=== PATIENT | female | born 1950 | race Caucasian/White ===

== ENCOUNTER → 2017-10-10 10:54 | Outpatient (CLI) | payer MEDICARE, OTHER, SELFPAY ==
--- NOTE | 2017-10-10 11:00 | HPBD_ITS ---
STUDY: DUAL ENERGY X-RAY ABSORPTIOMETRY / DXA REASON FOR EXAM: Female, 67 years old. The patient is postmenopausal. Loss of height. TECHNIQUE: Bone Mineral Density (BMD) measurements of lumbar spine and left forearm were obtained. The patient is status post bilateral hip replacement. COMPARISON: Comparison is made with prior study dated July 31, 2013. FINDINGS: Lumbar Spine (L1-L4): g/cm2 (1.199) / T-score (0.3) / Z-score (1.9) Findings are suggestive of normal bone density with a low fracture risk. Left Forearm: g/cm2 (0.810) / T-score (-0.8) / Z-score (0.9) The T-Scores on the most recent prior examination were: Lumbar Spine (L1-L4): There has been worsening of bone density since the previous examination. HPBD/Dexa Bone Density Study (HP) IMPRESSION: The patient is considered normal as outlined below according to World Marcel Organization (WHO) criteria with a low fracture risk. There has been worsening of bone density since the previous examination. Reference Information: The T-score is the number of standard deviations above or below the standard which is normal for young adults at their peak bone mineral density. The World Health Organization (WHO) interprets the T-scores as follows: Above -1 Normal bone density Between -1 and -2.5 Osteopenia Equal to / or below -2.5 Osteoporosis As a practical clinical guideline, osteopenia may be graded as follows: Mild -1 through -1.5 Moderate -1.6 through -2.0 Severe -2.1 through -2.4 The Z-score is the number of standard deviations above or below age-matched controls. A Z-score of less than -1.5 would be considered abnormal. References: 1. NIH Osteoporosis and Related Bone Diseases http://www.osteo.org 2. International Society for Clinical Densitometry http://www.iscd.org 3. National Osteoporosis Foundation http://www.nof.org Electronically Signed: Ciro Reece MD at 12:25 EST Tel [phone], Service support ,
== END ==
PROVIDERS: Family Provider Family Medicine; PCP Family Medicine; Visit Provider Family Medicine
DX: M81.0 Age-related osteoporosis without current pathological fracture (principal)
CPT/HCPCS: 77080

== ENCOUNTER → 2017-10-11 12:39 | Outpatient (CLI) | payer MEDICARE, OTHER, SELFPAY ==
[2017-10-11 14:38] LABS: Vitamin D,25 Hydroxy 27.7 ng/mL (19.95-100.01)
== END ==
PROVIDERS: Family Provider Family Medicine; PCP Family Medicine; Visit Provider Family Medicine
DX: E55.9 Vitamin D deficiency, unspecified (principal)
CPT/HCPCS: 36415; 82306

== ENCOUNTER → 2017-10-13 09:59 | Outpatient (CLI) | payer MEDICARE, OTHER, SELFPAY ==
--- NOTE | 2017-10-13 10:09 | HPBI_ITS ---
MAMMOGRAPHY - BILATERAL SCREENING REASON FOR EXAM: Female, 67 years old. Routine annual screening examination. PERTINENT HISTORY: Sister with breast cancer. TECHNIQUE: Digital bilateral breast elvira (3D mammographic acquisition) in the CC and MLO projections. 2-D mediolateral oblique (MLO) and craniocaudad (CC) views of both breasts were obtained. CAD: Full Field Digital Mammography with Computer Added Detection was performed. COMPARISON: Comparison is made with prior study dated October 10, 2016 and October 07, 2015. FINDINGS: Breast Composition: There are scattered areas of fibroglandular density. There are no dominant masses or suspicious calcifications. Stable 6.6 mm x 5.7 mm well-defined nodule in the upper outer aspect of the left breast. This most likely represent a small intramammary lymph node. No other significant abnormalities are identified. There has been no significant change since the prior study. HPBI/SCREENING MAMM (CAD), BILAT IMPRESSION: Stable bilateral screening mammogram. Yearly follow-up mammogram recommended. (A) ASSESSMENT CATEGORY: BIRADS Category 2: Benign. A letter regarding these results will be sent to the patient by the facility within 30 days. Approximately 10% of breast cancers are not detected by mammography. A normal mammogram should not delay biopsy of a clinically suspicious abnormality. [id number] Electronically Signed: Ciro Reece MD at 13:08 EST Tel [phone], Service support ,
== END ==
PROVIDERS: Family Provider Family Medicine; PCP Family Medicine; Visit Provider Obstetrics & Gynecology
DX: Z12.31 Encounter for screening mammogram for malignant neoplasm of breast (principal)
CPT/HCPCS: 77063; 77067

== ENCOUNTER → 2018-01-03 16:58 | Outpatient (CLI) | payer MEDICARE, OTHER, SELFPAY ==
--- NOTE | 2018-01-03 17:27 | MRI_ITS ---
STUDY: MRI LUMBAR SPINE WITHOUT CONTRAST REASON FOR EXAM: Female, 67 years old. Back pain TECHNIQUE: Standardized fat and water weighted pulse sequences were obtained in the sagittal and axial planes. COMPARISON: None FINDINGS: There is a mild first-degree spondylolisthesis of L3 over L4. No acute fractures. An old compression fracture involving the superior endplate of L4. Narrowing of the disc spaces in the lower thoracic spine and also at L5-S1 T12-L1: Normal endplates. Normal disc height, hydration and morphology. Normal bilateral facet joints. Normal central canal and bilateral lateral recesses. Normal bilateral intervertebral neural foramina. L1-2: Normal endplates. Normal disc height, hydration and morphology. Normal bilateral facet joints. Normal central canal and bilateral lateral recesses. Normal bilateral intervertebral neural foramina. L2-3: Normal endplates. Normal disc height, hydration and morphology. Facet arthrosis bilaterally but especially on the right side. Normal central canal and bilateral lateral recesses. Normal bilateral intervertebral neural foramina. L3-4: Mild spondylolisthesis of L3 over L4 with degenerative changes in the facet joints. Mild central canal stenosis. No focal disc protrusion or extrusion. L4-5: Normal endplates. Normal disc height, hydration and morphology. Facet arthrosis bilaterally.. Normal central canal and bilateral lateral recesses. Normal bilateral intervertebral neural foramina. L5-S1: Disc space narrowing with mild concentric disc bulging. No focal disc protrusion or extrusion and no central canal stenosis.. The aorta and kidneys are normal MRI/Spine Lumbar (Routine) IMPRESSION: A mild first-degree spondylolisthesis of L3 over L4. Mild and old compression fracture involving the superior endplate of L3 Intervertebral osteochondrosis involving T10-T11, T11-T12 and L5-S1. Facet arthrosis from L2-3 through L4-5. No central canal stenosis Electronically Signed: Daniel Chua, at 0:15 EDT Tel , Service support ,
== END ==
PROVIDERS: Family Provider Family Medicine; PCP Family Medicine; Visit Provider Family Medicine
DX: M51.36 Other intervertebral disc degeneration, lumbar region (principal); M43.06 Spondylolysis, lumbar region
CPT/HCPCS: 72148

== ENCOUNTER → 2018-03-12 10:12 | Outpatient (CLI) | payer MEDICARE, OTHER, SELFPAY ==
[2018-03-12 11:37] LABS: Anion Gap 6 (5-15); BUN 18 mg/dL (7-18); BUN/Creat Ratio 20.5 RATIO (10-20); Calcium,Total 8.9 mg/dL (8.5-10.1); Chloride 106 mmol/L (98-107); Creatinine, Serum 0.88 mg/dL (0.55-1.02); EST Glomerular Filtration Rate 68 mL/min (>60); Est Glom Filt Rate - Afr Amer 82 mL/min (>60); Glucose 80 mg/dL (74-106); Sodium Level 142 mmol/L (136-145); Thyroid Stim Hormone (TSH) 3.37 uIU/mL (0.358-3.74)
== END ==
PROVIDERS: Family Provider Family Medicine; PCP Family Medicine
DX: E03.9 Hypothyroidism, unspecified (principal)
CPT/HCPCS: 36415; 80048; 84439; 84443

== ENCOUNTER → 2018-04-03 08:59 | Outpatient (CLI) | payer MEDICARE, OTHER, SELFPAY ==
--- NOTE | 2018-04-03 09:00 | RAD_ITS ---
STUDY: X-RAY - LUMBAR SPINE REASON FOR EXAM: Female, 67 years old. Low back pain TECHNIQUE: 4 view(s) of the lumbar spine were obtained. With flexion and extension COMPARISON: None FINDINGS: Normal lumbar lordosis. There is no substantial scoliosis. Grade 1 anterolisthesis of L4 on L5. There is multilevel endplate spondylosis of the lumbar vertebrae. There is multi-level degenerative disc disease with multi-level disc space narrowing. There is no demonstrated fracture. There is atherosclerotic calcification of the abdominal aorta without a demonstrated aneurysm. RAD/L/S Spine Min 4 Views IMPRESSION: Degenerative changes of the spine, as detailed above. Electronically Signed: Derrick Lewis DO at 11:28 EDT Tel , Service support ,
== END ==
PROVIDERS: Family Provider Family Medicine; PCP Family Medicine; Visit Provider Orthopaedic Surgery
DX: M54.5 Low back pain (principal)
CPT/HCPCS: 72110

== ENCOUNTER 2018-05-11 01:01 | Observation (INO) | payer MEDICARE, OTHER, SELFPAY ==
[2018-05-11] VITALS (9 sets, daily range): BP systolic 131–157; BP diastolic 63–91; PULSE 57–77; RESP 16–18; TEMP 36.4–36.6; O2SAT 95–99
[2018-05-11] MEDS: Aspirin 81 MG TAB.CHEW 324 MG PO (01:25)
[2018-05-11 01:26] LABS: Absolute Neutrophil Count 5.1 X10^3/uL (2.0-7.7); Basophil# 0.02 X10^3/uL; Basophil% 0.2 % (0-1); Eosinophils% 2.2 % (0-5); Hematocrit 39.1 % (37-47); Hemoglobin 12.2 g/dl (12.0-15.0); Lymphocyte % 32.5 % (19-41); Mean Corp Hgb Conc 31.2 g/gl (32-36); Mean Corpuscular Volume 96.1 fL (81-99); Mean Platelet Vol. 9.7 fl (6.2-12.0); Monocyte# 0.73 X10^3/uL; Monocyte% 8.2 % (0-10); Neutrophil # 5.06 X10^3/uL (2.7-7.7); Neutrophil % 56.8 % (47-70); POSITIVE COUNT NO; POSITIVE DIFFERENTIAL NO; POSITIVE MORPHOLOGY NO; Platelet Count 293 K/mm3 (150-450); RBC Distribution Width CV 13.5 % (11.6-14.6); RBC Distribution Width SD 46.7 fl (35.1-43.9); Red Blood Count 4.07 M/mm3 (4.2-5.4); White Blood Count 8.9 K/mm3 (4.4-11.0)
[2018-05-11 01:36] LABS: Anion Gap 9 (5-15); BUN 19 mg/dL (7-18); BUN/Creat Ratio 20.9 RATIO (10-20); Calcium,Total 9.2 mg/dL (8.5-10.1); Chloride 105 mmol/L (98-107); Creatinine, Serum 0.91 mg/dL (0.55-1.02); EST Glomerular Filtration Rate 65 mL/min (>60); Est Glom Filt Rate - Afr Amer 79 mL/min (>60); Estimated Creatinine Clearance 55.39 ml/min; Glucose 101 mg/dL (74-106); Potassium 3.7 mmol/L (3.5-5.1); Sodium Level 143 mmol/L (136-145)
[2018-05-11] MEDS: Nitroglycerin Oint 1 INCH PACKET TRANSDERM. (01:49)
--- NOTE | 2018-05-11 03:07 | PCM.HP.STD ---
Problem List (1) Chest pain Status: Acute Qualifiers: Chest pain type: unspecified Qualified Code(s): R07.9 - Chest pain, unspecified (2) Hyperlipidemia Status: Chronic Qualifiers: Hyperlipidemia type: pure hypercholesterolemia Qualified Code(s): E78.00 - Pure hypercholesterolemia, unspecified; E78.0 - Pure hypercholesterolemia (3) Hypothyroidism (acquired) Status: Chronic (4) Obstructive sleep apnea Status: Chronic (5) Polymyalgia rheumatica Status: Chronic (6) History of GI bleed Status: Chronic (7) CAD S/P percutaneous coronary angioplasty Status: Chronic Comment: 2007 History of Present Illness Date of Admission: 05/11/18 Chief Complaint: Chest pain The patient is a 67 y/o F w/ PMHx: Hx GI Bleed, HLD, Hypothyroidism, RUBEN, CAD s/p PCI 12/2007, PAF s/p ablation , Anxiety and Depression, Obesity who presents to the [facility] ED on 05/11/18 with history of onset malaise, fatigue, mild lightheadedness and palpitations following her pool therapy on Monday with following ongoing general fatigue and malaise sensation with onset the evening prior to ED presentation left sided chest pressure, discomfort, rated 5/10 with radiation toward the back and sensation of stabbing sharp discomfort concurrently in the back on the left side with no associated dyspnea, diaphoresis, nausea or emesis prompting ED presentation. Following interventions in the ED patient rated pain 0/10. In the ED work-up included T 97.5, heart rate 67, BP 157/69--> 31/63, respiratory rate 16, 97% room air, CBC unremarkable, BMP unremarkable, troponin less than 0.015, chest x-ray with no acute findings, EKG with sinus rhythm with no acute evidence of ischemia. In the ED patient administered aspirin and Nitro-Bid 1 inch ?1. Past Medical History Past Medical History (Chronic Problems): Chronic Problems (Last Reviewed 03/14/18 @ 13:19 by Ann Miramontes) Hyperlipidemia (Chronic) Supraventricular tachycardia (Chronic) Postsurgical percutaneous transluminal coronary angioplasty (PTCA) status (Chronic) 12/14/07 PTCA/stent (OMAR) to LAD [facility] use of drug (Chronic) Antihyperlipidemic Hypothyroidism (acquired) (Chronic) Obstructive sleep apnea (Chronic) Polymyalgia rheumatica (Chronic) Nonhealing ulcer of left lower leg with fat layer exposed (Chronic) L97.922 nonhealing hematoma ulcer left lateral leg Open wound of left lower leg (Chronic) S81.802D open surgical hematoma wound left lateral leg Contusion of left lower leg (Chronic) S80.12xS 8 cm traumatic contusion left lateral leg History of GI bleed (Chronic) CAD S/P percutaneous coronary angioplasty (Chronic) 2008 History of coronary artery stent placement (Chronic) x 1 2008 Medical History: Medical History (Last Reviewed 03/14/18 @ 13:19 by Ann Miramontes) GI bleed K92.2 x2 History of blood transfusion Z92.89 Myofascitis M60.9 Hyperlipidemia E78.5 Hypothyroidism E03.9 Sleep apnea G47.30 Thoracic spondylosis M47.814 Status post bilateral knee replacements Z96.653 2005 2006 Allergies duloxetine [From Cymbalta] Allergy (Mild, Verified 04/03/18 11:40) chest pain adhesive tape Allergy (Verified 04/03/18 11:40) Rash pravastatin [From Pravachol] Allergy (Verified 04/03/18 11:40) MUSCLE PAIN cyclobenzaprine [From Flexeril] Adverse Reaction (Verified 04/03/18 11:40) EXTREME WEAKNESS NSAIDS (Non-Steroidal Anti-Inflamma Adverse Reaction (Verified 04/03/18 11:40) GI BLEED Home Medications: Ambulatory Orders Medication Instructions Recorded Aspirin [Adult Low Dose Aspirin EC] 81 mg PO QHS 05/31/16 Cetirizine HCl [Zyrtec] 10 mg PO QHS PRN 05/31/16 Fluticasone 0.05% [Flonase Nasal 1 spray NASAL QHS 05/31/16 [place]] Levothyroxine [Synthroid] 150 mcg PO DAILY 05/31/16 Metoprolol(XL)Succ [Toprol Xl 50 mg PO DAILY 05/31/16 (Beta Ashli)] Omeprazole [Prilosec] 40 mg PO DAILY 05/31/16 Venlafaxine HCl [Effexor] 37.5 mg PO QHS 05/31/16 traMADol [Ultram] 50 mg PO Q8H PRN PRN 05/31/16 clopidogrel 75 mg tablet 75 mg PO QDAY #90 tab 01/18/18 prednisone 1 mg tablet 3 mg PO DAILY tab 02/23/18 Calcium Carb/Vitamin D 1 tab PO DAILY@0800 05/11/18 [Caltrate-600 With Vit D Tab] Clopidogrel Bisulfate [Plavix] 75 mg PO DAILY 05/11/18 Surgical History: Surgical History (Last Reviewed 03/14/18 @ 13:19 by Ann Miramontes) H/O angioplasty Z98.62 stent LAD 12/24/2007 S/P bilateral hip replacements Z96.643 2015 S/P hernia repair Z98.890, Z87.19 Status post carpal tunnel release Z98.890 right 2009 heart ablation 2000 2001 menicus repair right knee wound debridement left lower leg 2016 Surgical History: - - PCI of LAD, arthroscopic knee surgery, bilateral total hip replacement, hernia repair, right carpal tunnel surgery, cardiac ablation ?2, left lower extremity wound debridement. 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 Denies: Chills, Fever, Weight Change HEENT: Denies: Head Aches, Sinus Congestion, Sinus Drainage Cardiovascular: Reports: Chest Pain, Chest Pressure, Light Headedness. Denies: Palpitations Respiratory: Denies: Cough, Shortness of Breath, Shortness of breath at rest, Shortness of breath upon exertion, Sputum production Gastrointestinal: Denies: Abdominal Pain, Nausea, Vomiting Genitourinary: Denies: Dysuria Musculoskeletal: Reports: Back Pain, Neck Pain, Shoulder Pain. Denies: Joint Pain, Joint Tenderness Skin: Denies: Rash, Wounds Neurological: Denies: Numbness, Tingling, Focal weakness Psychiatric: Denies: Anxiety, Depression, Homicidal Ideations, Suicidal Ideations Hematologic/ Lymphatic: Denies: Easy Bruising, Easy Bleeding VTE Information - Inpt Only VTE Present on Admission: No VTE Mechan Device Prophylaxis: SCD's VTE Pharm Prophylaxis ordered?: Yes Patient Problems: Active and Suspected Problems (Last Reviewed 03/14/18 @ 13:19 by Ann Miramontes) Chest pain (Acute) Subjective: Seated upright in the ED bed, NAD, currently chest pain resolved. Objective: Physical Examination: General: awake, alert, oriented x 3 and cooperative, seated upright in the ED bed in no apparent distress. Skin: normal color, turgor, no icterus, cyanosis. HEENT: AT/NC, EOMI, PERRLA, MMM, no carotid bruits or JVD noted. Lungs: CTA bilaterally, moderate effort, mild decrease BL bases, no rales, ronchi or wheezing. Heart: Mildly bradycardic with regular rhythm; no gallop, rub audible. Abdomen: soft, obese, NTTP, ND, normal BS, no HSM. Extremities: no cyanosis, clubbing, or edema. Neurological: patient awake, alert, oriented x 3; cognitive function intact; pupils equally reactive to light and accomodation; cranial nerves II-XII grossly normal, moving all 4 extremities, no focal deficits, strength preserved. Psychiatric: affect appears normal, no acute evidence of depressive or anxiety feelings. - Physical Exam Vital Signs Temp Pulse Resp BP Pulse Ox 97.5 F L 60 18 131/63 H 95 05/11/18 01:03 05/11/18 01:49 05/11/18 01:25 05/11/18 01:49 05/11/18 01:26 Oxygen Delivery Method Room Air Weight: 188 lb 14.978 oz Body Mass Index (BMI) 30.0 Laboratory Tests Past 24 Hrs 05/11/18 05/11/18 01:12 01:12 WBC 8.9 RBC 4.07 L Hgb 12.2 Hct 39.1 MCV 96.1 MCH 30.0 MCHC 31.2 L RDW 13.5 RDW Differential 46.7 H Plt Count 293 MPV 9.7 Immature Gran % (Auto) 0.100 Neut % (Auto) 56.8 Lymph % (Auto) 32.5 [place] % (Auto) 8.2 Eos % (Auto) 2.2 Baso % (Auto) 0.2 Absolute Neuts (auto) 5.1 Absolute Lymphs (auto) 2.90 Total Counted Not Reportable Sodium 143 Potassium 3.7 Chloride 105 Carbon Dioxide 29.0 Anion Gap 9 BUN 19 H Creatinine 0.91 Estim Creat Clear Calc 55.39 Est GFR (MDRD) Af Amer 79 Est GFR (MDRD) Non-Af 65 BUN/Creatinine Ratio 20.9 H Glucose 101 Calcium 9.2 Troponin I < 0.015 Assessment/Plan All Active Problems (Last Reviewed 03/14/18 @ 13:19 by Ann Miramontes) Chest pain (Acute) Avulsion of skin of finger without complication (Acute) The patient is a 67 y/o F w/ PMHx: Hx GI Bleed, HLD, Hypothyroidism, RUBEN, CAD s/p PCI 12/2007, PAF s/p ablation , Anxiety and Depression, Obesity who presents to the [facility] ED on 05/11/18 with history of onset malaise, fatigue, mild lightheadedness and palpitations following her pool therapy on Monday with following ongoing general fatigue and malaise sensation with onset the evening prior to ED presentation left sided chest pressure, discomfort, rated 5/10 with radiation toward the back and sensation of stabbing sharp discomfort concurrently in the back on the left side. (1) Chest Pain: In the ED work-up included T 97.5, heart rate 67, BP 157/69--> 31/63, respiratory rate 16, 97% room air, CBC unremarkable, BMP unremarkable, troponin less than 0.015, chest x-ray with no acute findings, EKG with sinus rhythm with no acute evidence of ischemia. In the ED patient administered aspirin and Nitro-Bid 1 inch ?1. Will admit to PCU, place on a monitored bed to assure no acute myocardial infarction with serial cardiac enzymes and EKGs. Given patient history of PCI, will continue to trend enzymes and if remain unremarkable would plan AM nuclear stress testing; however, if increase would defer and consult Cardiology. ASA, NG, morphine. FLP in AM but statin intolerance. Mag pending. (2) CAD: s/p PCI LAD 12/2007. Will continue home regimen asa, plavix, BB. Last stress testing 12/2015 which was negative for inducible ischemia. Not on statin secondary to intolera nce. (3) Hypertension: Continue home regimen including metoprolol, PRN hydralazine. (4) Hypothyroidism: Continue home synthroid regimen. (5) GERD, Hx GI Bleed: Maintain on home PPI. (6) Anxiety and Depression: Continue home effexor regimen. (7) Severe OA, Polymyalgia Rheumatica: Continue home low dose steroid regimen. (8) RUBEN: CPAP q HS. (9) DVT prophylaxis: SCD, Lovenox.The patient is a 67 y/o F w/ PMHx: Hx GI Bleed, HLD, Hypothyroidism, RUBEN, CAD s/p PCI 12/2007, PAF s/p ablation , Anxiety and Depression, Obesity who presents to the [facility] ED on 05/11/18 with history of onset sternal chest pain radiating toward her back, ongoing x 3 days Code Visit OBSV E&M: [id number] Initial observation care L3
--- NOTE | 2018-05-11 03:24 | NURSING ---
Called ED spice miller, Erica at this time to confirm Pt okay to come to PCU.
--- NOTE | 2018-05-11 04:44 | ED.VISSUMM ---
- ER Visit Summary Date of Service: 05/11/18 Chief Complaint: Chest pain History of Present Illness: The patient is a 67 F intermittent chest pain left side rating to bilateral shoulders for the past 2 days. Symptoms return 1030 yesterday evening were swelling down. No cough. No dyspnea, nausea, diaphoresis. States in her chest is pressure however sharp pains in her shoulders. Similar symptoms when she had up with one stent in 2007. States her last stress test was a year ago. Followed by Dr. Gonzalez. Denies history of diabetes. No recent travel, surgeries, or immobilizations. No history of PE or DVT. Brother had [facility] at age of 50. No tobacco history. She did take a nitro which seemingly helped her symptoms symptoms are very mild currently. Physical Examination: General: Alert and oriented ?3, no acute distress HEENT: Normocephalic, atraumatic. Moist mucosa membranes Neck: supple, nontender. Cardiovascular: Regular rate and rhythm, no murmurs Respiratory: Normal breath sounds, symmetric, no distress Abdomen: Soft, nontender, nondistended Extremities: Nontender, no edema, pulses intact ?4 Neuro: no focal neurological deficits. Test Results: EKG sinus rate of [address] or T-wave changes. Troponin negative. CBC, BMP normal. Chest x-ray negative. Emergency Department Course and Treatment: Patient currently much more improved, due to improving symptoms nitro nitro paste was placed. Aspirin given. Cardiac workup initiated was normal. She is symptom-free on reevaluation. AMANDA scores of 4, heart scores of 5. Discuss with hospitalist Dr. Saxena for admission. Treatment Plan: [] Disposition: Admission Impression: Acute chest pain This note was generated with scoo mobility dictation software. It may contain incorrect words, spelling, and punctuation that were not noted in review of the chart prior to signing ED Disposition - Plan for ED Patient: Disposition: Acute Care Hospital [facility] Chief Complaint: Chest Pain Diagnosis: Chest pain
[2018-05-11] MEDS: 0.9% Normal Saline 1,000 ML 100 ML IV (05:11)
[2018-05-11] MEDS: Levothyroxine 150 MCG Tablet PO (05:12)
[2018-05-11] MEDS: Clopidogrel Bisulfate 75 MG Tablet PO (05:12)
[2018-05-11] MEDS: Aspirin E.C. 81 MG Tablet PO (05:15)
[2018-05-11 05:16] LABS: Hematocrit 37.1 % (37-47); Hemoglobin 11.9 g/dl (12.0-15.0); Mean Corp Hgb Conc 32.1 g/gl (32-36); Mean Corpuscular Hgb 30.7 pg (27.0-32.0); Mean Corpuscular Volume 95.6 fL (81-99); Platelet Count 305 K/mm3 (150-450); RBC Distribution Width CV 13.4 % (11.6-14.6); Red Blood Count 3.88 M/mm3 (4.2-5.4)
[2018-05-11 05:18] LABS: Scan Indicated on CBC? Y/N NO
[2018-05-11 05:23] LABS: Partial Thromboplast Time 25.9 Seconds (24.1-36.2)
[2018-05-11 05:28] LABS: International Normalized Ratio 0.9; Prothrombin Time (Protime)PT. 11.9 SECONDS (11.7-14.9)
[2018-05-11 05:29] LABS: Magnesium 2.2 mg/dL (1.6-2.6)
[2018-05-11 05:42] LABS: ALB/GLOB Ratio 0.9 RATIO (0.9-2.4); AST(SGOT) 14 U/L (15-37); Alanine Aminotransfer ALT/SGPT 27 U/L (13-56); Albumin, Serum 3.2 g/dL (3.2-5.0); Alkaline Phosphatase 65 U/L (45-117); Anion Gap 7 (5-15); BUN 19 mg/dL (7-18); BUN/Creat Ratio 23.1 RATIO (10-20); Calcium,Total 8.7 mg/dL (8.5-10.1); Chloride 106 mmol/L (98-107); Cholesterol 255 mg/dL (200); Creatinine, Serum 0.82 mg/dL (0.55-1.02); EST Glomerular Filtration Rate 73 mL/min (>60); Est Glom Filt Rate - Afr Amer 89 mL/min (>60); Estimated Creatinine Clearance 61.47 ml/min; Globulin 3.4 g/dL (2.2-4.2); Glucose 86 mg/dL (74-106); High Density Lipoprotein 76 mg/dL; Potassium 4.1 mmol/L (3.5-5.1); Protein, Total 6.6 g/dL (6.4-8.2); Sodium Level 143 mmol/L (136-145); Triglycerides 87 mg/dL; Very Low Density Lipoprotein 17 mg/dL (5-40)
--- NOTE | 2018-05-11 08:56 | STRESSREP ---
Stress Test Report Date: 05/11/2018 Procedure: Pharmacologic stress nuclear imaging study Indications: Chest pain; CAD; status post PCI; SVT status post ablation Consent: Per the patient Procedure: The patient underwent pharmacologic (Regadenoson) evaluation with a peak heart rate of 79 beats per minute (51 predicted maximal heart rate) and a peak blood pressure of 162/88 mmHg. The baseline ECG demonstrated normal sinus rhythm. The peak pharmacologic ECG demonstrated no obvious ECG changes. There were no cardiac dysrhythmias pretest, during pharmacologic infusion, or recovery. There was no complaint of chest discomfort during pharmacologic infusion or recovery. The examination was discontinued secondary to completion of protocol. Impression: 1. Pharmacologic (Regadenoson) evaluation 2. Peak pharmacologic ECG with no obvious ECG changes. 3. There were no cardiac dysrhythmias pretest, during pharmacologic infusion, or recovery 4. Nuclear images pending Myocardial perfusion imaging study: Technique: The patient was injected with 11.6 millicuries of technetium 99m Cardiolite and subsequently rest SPECT Cardiolite nuclear imaging was obtained in the horizontal long, vertical long, and short axis views. The patient underwent pharmacologic (Regadenoson) evaluation with a peak heart rate of 79 beats per minute (51 % percent predicted maximal heart rate) and a peak blood pressure of 162/88 mmHg. The patient was injected with 32.9 millicuries of technetium 99m Cardiolite and subsequently stress SPECT Cardiolite nuclear imaging was obtained in the horizontal long, vertical long, and short axis views. The gated Cardiolite study at peak stress was not obtained. Interpretation: Rest and stress SPECT Cardiolite nuclear imaging status post realignment, normalization, and attenuation correction demonstrate relative uniform tracer uptake and myocardial perfusion appearing within normal limits. The gated Cardiolite study at peak stress was not obtained. Impression: 1. Rest and stress SPECT Cardiolite nuclear imaging demonstrate relative uniform tracer uptake and myocardial perfusion appearing within normal limits. 2. The gated Cardiolite study at peak stress was not obtained. This note was generated with [employer] software. It may contain incorrect words, spelling, and punctuation that were not noted in checking the note before signing.
[2018-05-11] MEDS: predniSONE 1 MG Tablet 3 MG PO (09:32)
[2018-05-11] MEDS: Famotidine 20 MG Tablet PO (09:32)
[2018-05-11] MEDS: Metoprolol(XL)Succ 50 MG Tablet PO (09:32)
[2018-05-11] MEDS: Calcium Carb/Vitamin D 1 TABLET Tablet PO (09:41)
--- NOTE | 2018-05-11 10:15 | CASEMGMT ---
SW spoke with patient and confirmed her healthcare POA from 2008 that [facility] has on file is still accurate and it is accurate. 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
--- NOTE | 2018-05-11 10:19 | PCM.DC ---
- Discharge Diagnoses Current Active Problems: Current Active and Chronic Problems (Last Reviewed 03/14/18 @ 13:19 by Ann Miramontes) Chest pain (Acute) You will use the following diet at home:: Cardiac Discharge Activity: Return to Normal Activity Call your doctor if you observe: Numbness or Tingling, Shortness of breath, Dizziness, Fainting spells, Chest pain Allergies/Adverse Reactions: Allergies adhesive tape Allergy (Verified 04/03/18 11:40) Rash pravastatin [From Pravachol] Allergy (Verified 04/03/18 11:40) MUSCLE PAIN cyclobenzaprine [From Flexeril] Adverse Reaction (Verified 04/03/18 11:40) EXTREME WEAKNESS NSAIDS (Non-Steroidal Anti-Inflamma Adverse Reaction (Verified 04/03/18 11:40) GI BLEED Medications to take at Discharge Aspirin [Adult Low Dose Aspirin EC] 81 mg PO QHS 05/31/16 Cetirizine HCl [Zyrtec] 10 mg PO SUTUTHSA PRN 05/31/16 Fluticasone 0.05% [Flonase Nasal [place]] 1 spray NASAL QHS 05/31/16 Levothyroxine [Synthroid] 150 mcg PO DAILY 05/31/16 Metoprolol(XL)Succ [Toprol Xl (Beta Ashli)] 50 mg PO DAILY 05/31/16 Omeprazole [Prilosec] 40 mg PO DAILY 05/31/16 Venlafaxine HCl [Effexor] 37.5 mg PO QHS 05/31/16 traMADol [Ultram] 50 mg PO Q8H PRN PRN 05/31/16 prednisone 1 mg tablet 3 mg PO DAILY tab 02/23/18 Calcium Carb/Vitamin D [Caltrate-600 With Vit D Tab] 2 tab PO DAILY@1500 05/11/18 Clopidogrel Bisulfate [Plavix] 75 mg PO DAILY@1500 05/11/18 Primary Care Physician: Ebenezer Vann DO [Primary Care Provider] - Please follow up with your Primary Care Physician in: 1 Week Test Results: Test results from this visit will be discussed in further detail at your follow-up appointment, if applicable. Proposed Discharge Date: 05/11/18
--- NOTE | 2018-05-11 10:23 | PCM.DC.SUM ---
<Kiara Gaona - Last Filed: 05/11/18 10:33> Discharge Date and Diagnosis Date of Admission: 05/11/18 Date of Discharge: 05/11/18 - Primary Discharge Diagnosis Active and Suspected Problems (Last Reviewed 03/14/18 @ 13:19 by Ann Miramontes) 1. Musculoskeletal chest pain - Secondary Discharge Diagnosis Chronic Problems (Last Reviewed 03/14/18 @ 13:19 by Ann Miramontes) Hyperlipidemia (Chronic) Supraventricular tachycardia (Chronic) Postsurgical percutaneous transluminal coronary angioplasty (PTCA) status (Chronic) 12/14/07 PTCA/stent ([facility]) to LAD residential use of drug (Chronic) Antihyperlipidemic Hypothyroidism (acquired) (Chronic) Obstructive sleep apnea (Chronic) Polymyalgia rheumatica (Chronic) Nonhealing ulcer of left lower leg with fat layer exposed (Chronic) L97.922 nonhealing hematoma ulcer left lateral leg Open wound of left lower leg (Chronic) S81.802D open surgical hematoma wound left lateral leg Contusion of left lower leg (Chronic) S80.12xS 8 cm traumatic contusion left lateral leg History of GI bleed (Chronic) CAD S/P percutaneous coronary angioplasty (Chronic) 2007 History of coronary artery stent placement (Chronic) x 1 2008 Hospital Course and Treatment Imaging Results: Diagnostic Data Chest X-Ray 05/11/18 01:10 IMPRESSION: Degenerative changes, as described above. No demonstrated acute cardiopulmonary process. Electronically Signed: Audie Banguraford, at 1:37 EDT Tel , Service support , Operations: None Procedures: Stress test Summary of Care Provided: The patient is a 67 year old F admitted 05/11/2018 due to chest pain. She has a past medical history of CAD status post PCI in 2007, paroxysmal atrial fibrillation status post ablation, anxiety, depression, obesity, history of GI bleed, hyperlipidemia, hypothyroidism, obstructive sleep apnea, polymyalgia rheumatica. Patient denies further chest pain. Complains of left upper back discomfort. She does state she was doing water aerobics when pain occurred. Troponin negative. Patient underwent nuclear stress test which was negative for ischemia. Suspect patient's pain is musculoskeletal in nature. Patient states she adjusts her chronic prednisone regimen based on how she is feeling. Advised patient to discuss this with her primary care physician. Lipid panel elevated. Patient has allergy to statin. Recommend further evaluation of fenofibrate or other lipid reducing medication by primary care physician. General: awake, alert, oriented x 3 and cooperative Skin: normal color, turgor, no icterus, cyanosis. HEENT: EOMI, PERRLA, no carotid bruits or JVD noted. Lungs: Clear to auscultation Heart: Regular rate, regular rhythm, no murmur. Abdomen: soft, obese, nontender Extremities: no cyanosis, clubbing, or edema. Neurological: Neuro grossly intact Psychiatric: affect appears normal Patient seen exam prior to discharge. Physical assessment as noted above. Patient stable for discharge home to follow-up with primary care physician in 1 week. This patient was seen by SONG Herrera under the supervision of Dr. Miller. Discharge Diet: Low fat/ Low Cholesterol Discharge Activity: Return to Normal Activity Call your doctor if you observe: Numbness or Tingling, Shortness of breath, Dizziness, Fainting spells, Chest pain Home Medications: Medications to take at Discharge Aspirin [Adult Low Dose Aspirin EC] 81 mg PO QHS 05/31/16 Cetirizine HCl [Zyrtec] 10 mg PO SUTUTHSA PRN 05/31/16 Fluticasone 0.05% [Flonase Nasal [place]] 1 spray NASAL QHS 05/31/16 Levothyroxine [Synthroid] 150 mcg PO DAILY 05/31/16 Metoprolol(XL)Succ [Toprol Xl (Beta Ashli)] 50 mg PO DAILY 05/31/16 Omeprazole [Prilosec] 40 mg PO DAILY 05/31/16 Venlafaxine HCl [Effexor] 37.5 mg PO QHS 05/31/16 traMADol [Ultram] 50 mg PO Q8H PRN PRN 05/31/16 prednisone 1 mg tablet 3 mg PO DAILY tab 02/23/18 Calcium Carb/Vitamin D [Caltrate-600 With Vit D Tab] 2 tab PO DAILY@1500 05/11/18 Clopidogrel Bisulfate [Plavix] 75 mg PO DAILY@1500 05/11/18 Primary Care Physician: Ebenezer Vann DO [Primary Care Provider] - Please follow up with your Primary Care Physician in: 1 Week Disposition: Home Minutes spent on discharge:: 35 Patient Condition:: Stable Medical Necessity - Tobacco Use Smoking Status: Never smoker Tobacco Use: Non-smoker Meaningful Use Info Meaningful Use Diagnoses (Choose all that apply): None applicable <Savannah Miller - Last Filed: 05/11/18 14:13> Discharge Date and Diagnosis - Secondary Discharge Diagnosis Chronic Problems (Last Reviewed 03/14/18 @ 13:19 by Ann Miramontes) Hyperlipidemia (Chronic) Supraventricular tachycardia (Chronic) Postsurgical percutaneous transluminal coronary angioplasty (PTCA) status (Chronic) 12/14/07 PTCA/stent ([facility]) to LAD [employer]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) Antihyperlipidemic Hypothyroidism (acquired) (Chronic) Obstructive sleep apnea (Chronic) Polymyalgia rheumatica (Chronic) Nonhealing ulcer of left lower leg with fat layer exposed (Chronic) L97.922 nonhealing hematoma ulcer left lateral leg Open wound of left lower leg (Chronic) S81.802D open surgical hematoma wound left lateral leg Contusion of left lower leg (Chronic) S80.12xS 8 cm traumatic contusion left lateral leg History of GI bleed (Chronic) CAD S/P percutaneous coronary angioplasty (Chronic) 2008 History of coronary artery stent placement (Chronic) x 1 2008 Hospital Course and Treatment Imaging Results: 05/11/18 05:55 Nuclear Stress Test - Chemical [NM] AM (NON MEDS) Summary of Care Provided: Patient seen under my supervision by nurse practitioner Kiara Gaona. The patient is a 67 year old F admitted with a complaint of chest pain. Had a history as mentioned above. Chest pain had resolved at time of admission. She said this was similar to when she had her PA for which she had CABG and this time it started when she was having water therapy for her arthritis. Troponins were negative and she had a stress test which was also negative. Patient's lipid panel was elevated but she is allergic to statin and so she is to follow-up with her primary care doctor for start of fenofibrate or other lipid-lowering medication. Patient seen and examined prior to discharge. She had no complaints and felt well. She denied any fever or chills, cough or chest pain, shortness of breath, abdominal pain, vomiting. 12 point review of systems otherwise negative. Labs and vitals reviewed. Home medications reviewed and reconciled. o/e: vitals: Vital Signs Height 5 ft 6 in Weight: 186 lb 1.122 oz Weight in Pounds 186.1 lbs Pulse Ox 97 Temperature 97.9 F Pulse Rate 64 Respiratory Rate 16 Blood Pressure [2nd BP] 143/73 Blood Pressure 150/91 Blood Pressure Position [2nd Semi-Fowlers BP] Blood Pressure Position Semi-Fowlers General: awake, alert, oriented x 3 and cooperative Skin: normal color, turgor, no icterus, cyanosis. HEENT: EOMI, PERRLA, no carotid bruits or JVD noted. Lungs: Clear to auscultation Heart: Regular rate, normal S1 and S2, regular rhythm, no murmur. Abdomen: soft, obese, nontender Extremities: no cyanosis, clubbing, or edema. Neurological: Neuro grossly intact,normal power, tone. CN II-XII intact Psychiatric: affect appears normal Plan as stated above. Patient was discharged on aspirin and Plavix which she had been on before to continue. Agree with rest of Kiara Gaona NP C's note, assessment and plan. [] Code Visit Inpatient E&M: [id number] Disch Hosp
== END 2018-05-11 10:22 | disposition home or self-care (01) ==
LOC: ED 02:36 → PCU 03:44
PROVIDERS: Admitting Provider Family Medicine; Emergency Provider Emergency Medicine; Family Provider Family Medicine; PCP Family Medicine; Visit Provider Student in an Organized Health Care Education/Training Program
DX: R07.89 Other chest pain (principal); E78.5 Hyperlipidemia, unspecified; G47.33 Obstructive sleep apnea (adult) (pediatric); E03.9 Hypothyroidism, unspecified; M35.3 Polymyalgia rheumatica; I25.10 Atherosclerotic heart disease of native coronary artery without angina pectoris; I48.0 Paroxysmal atrial fibrillation; F41.9 Anxiety disorder, unspecified; F32.9 Major depressive disorder, single episode, unspecified; E66.9 Obesity, unspecified; Z68.30 Body mass index [BMI] 30.0-30.9, adult; Z79.899 Other long term (current) drug therapy; Z79.02 Long term (current) use of antithrombotics/antiplatelets; Z79.52 Long term (current) use of systemic steroids; Z79.82 Long term (current) use of aspirin; Z71.3 Dietary counseling and surveillance; Z95.5 Presence of coronary angioplasty implant and graft; Z95.1 Presence of aortocoronary bypass graft
CPT/HCPCS: 36415; 71045; 78452; 80048; 80053; 80061; 83735; 84484; 85025; 85027; 85610; 85730; 93005; 93017; 96360; 96361; 99218; 99283; A9500; J7030; A4216; G0378; J2785

== ENCOUNTER 2018-06-05 10:30 | Outpatient (RCR) | payer MEDICARE, OTHER, SELFPAY ==
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
--- NOTE | 2018-05-18 11:58 | HP.PTREVAL_ITS ---
Saadia Gold, It has been my pleasure to treat HARSHAD KRAMER over the last 8 visits for LBP, neck pain, greater trochanter bursitits. Please see the progress note below for an update on the physical therapy plan of care! Subjective: Pt reports that she was having some shoulder pain and had a stress test and it was negative. She always has a tightened up feeling being on the PREDNISONE. She thinks her flare could have been the polyrhumatica. Last time in PT they worked on stretching cause she felt so tight. Pt feels that the stretches that Nora gave her has helped a lot. She does have traction at home alos. SHe has an appointment Monday with Dr Lozano. Pt reports that her main goal is to get a home program, but a few more visits she thinks would be beneficial and she is not good at doing her stretches at home. General back pain is 2-3 on daily basis but standing is worse. Walking is not as bad. Pt is now able to sleep on her shoulder now. Pt is now able to sleep on her hip as well. Objective/Function: LE MMT: hip flex R 4-/5, and L 4/5, R knee ext 4-/5 and knee ext 4/5, B knee flex 4/5, B hip abd 4/5, B hip ext 3-/5. Pt is able to heel and toe walk without issue). Plan Plan: Add 2X/ wee for 2 additional weeks and then gear toward HEP. Would recommend Continued PT at this time. Goals Goal 1:: I HEP ( pt would like HEP) when done Goal Time Frame: 4-6 Weeks Goal Progress: Progressing Goal 2:: Increase B hip and LE strength by 1/2 muscle grade (at time of eval LE MMT: B hip flex 4-/5, B knee ext 4/5, B knee flex 4/5, B hip abd 4-/5, B hip ext 3-/5. Pt is able to heel and toe walk without issue). Goal Time Frame: 4-6 Weeks Goal 3:: Decrease back pain to 2/10 with standing Goal Time Frame: 4-6 Weeks Goal 4:: Be able to sleep at night on her L side (hip pain) and R side ( shoulder pain) without having pain Goal Time Frame: 4-6 Weeks Anticipated Interventions Patient/Client Instruction: Educate patient on: Plan of Care For the Purpose of:: To decrease pain, To decrease swelling/inflammation, To increase ROM, To improve nutrient delivery to tissue, To improve muscle performance and motor function, To improve ability to perform ADL's, To increase tolerance to activity/condition/position, To improve performance and independence with ADL's, To improve ability of physical actions for home/ community/work/leisure, To improve gait and locomotor functions, To improve health of tissue, To decrease soft tissue restriction, To increase flexibility/ ROM Therapeutic Exercise to Include: Strength training, Postural training, Flexibilty training, Gait and locomotor training, Active ROM, Dynamic Lumbar Stabilization, Scapular Strength/Stabilization For the Purpose of:: To decrease pain, To increase ROM, To improve nutrient delivery to tissue, To improve muscle performance and motor function, To improve ability to perform ADL's, To increase tolerance to activity/condition/ position, To improve performance and independence with ADL's, To improve gait and locomotor functions, To improve health of tissue, To decrease soft tissue restriction, To increase flexibility/ROM Please do not hesitate to contact me at [phone] by phone or Fax: if you have questions or concerns regarding this new plan of care! Sincerely, Sarah Hills
--- NOTE | 2018-06-05 10:56 | HP.PTDCSUM ---
HP - PT D/C Summary It has been my pleasure to treat HARSHAD KRAMER under orders from Saadia Gold, for the diagnosis of LBP, neck pain, greater trochanter bursitits for a total of 13 visit(s). Discharge Date: 06/05/18 Please see the following information for a summary of their discharge status. - Subjective Subjective: Pt reports that her R shoulder ( had an injection in February or March ) and did not help very much and one night she had horrid pain... She is thinking that she needs that to be looked at. She wants to do her exercises at home. She learned a lot about posture and managing that has helped her. Can sleep on L side now - Pain back pain\ Pain Intensity (Out of 10): 1 L hip pain Pain Intensity (Out of 10): 1 cervical spine Pain Intensity (Out of 10): 2 - Overall Improvement % Improvement: 80 - Objective Objective/Function: LE MMT: L hip abd 4/5 and R hip abd 4+/5, B hip flex 4+/5, B knee flex 4+/5 and B knee ext 4+/5, Able to heel and toe raise with some LOB - Goals Goal 1:: I HEP ( pt would like HEP) when done Goal Progress: Goal Met Goal 2:: Increase B hip and LE strength by 1/2 muscle grade (at time of eval LE MMT: B hip flex 4-/5, B knee ext 4/5, B knee flex 4/5, B hip abd 4-/5, B hip ext 3-/5. Pt is able to heel and toe walk without issue). Goal Progress: Goal Met Goal 3:: Decrease back pain to 2/10 with standing Goal Progress: Progressing Goal 4:: Be able to sleep at night on her L side (hip pain) and R side (shoulder pain) without having pain Goal Progress: Goal Met - Plan Plan: DC PT to HEP - D/C Information Discharge Comments: DC PT to HEP If there are questions or concerns regarding this patient's physical therapy, please feel free to call me at [phone]. Thank you for the referral of this patient. Sincerely, Sarah Hills
== END 2018-06-05 14:53 | disposition home or self-care (01) ==
LOC: PT 10:30
PROVIDERS: Family Provider Family Medicine; PCP Family Medicine; Visit Provider Orthopaedic Surgery
DX: M54.5 Low back pain (principal); M54.2 Cervicalgia; M70.60 Trochanteric bursitis, unspecified hip
CPT/HCPCS: 97110; 97113; 97162; 97530

== ENCOUNTER → 2018-07-17 10:45 | Outpatient (CLI) | payer MEDICARE, OTHER, SELFPAY ==
--- NOTE | 2018-07-17 10:58 | RAD_ITS ---
STUDY: X-RAY - RIGHT SHOULDER REASON FOR EXAM: Female, 67 years old. CHRONIC SHPILDER PAIN TECHNIQUE: 2 view(s) of the shoulder. COMPARISON: September 15, 2017 FINDINGS: Joint space appears preserved of the glenohumeral joint joint space articulation. It does appear that there is minimal spurring of the glenoid. There is degenerative arthrosis of the acromioclavicular joint with small inferior osseous spur formation. Normal acromion. There is mild osseous spurring associated with the lateral aspect of the humeral head near the far insertion of the supraspinatus tendon otherwise the humerus has an unremarkable appearance. The soft tissue structures are unremarkable. Normal visualized pulmonary apex. RAD/Shoulder min 2 Views IMPRESSION: Mild degenerative arthrosis. No significant interval change. Electronically Signed: Ele Olmos MD at 9:27 EST , Service support ,
== END ==
PROVIDERS: Family Provider Family Medicine; PCP Family Medicine; Referring Provider Anesthesiology Pain Medicine; Visit Provider Anesthesiology Pain Medicine
DX: M25.511 Pain in right shoulder (principal)
CPT/HCPCS: 73030

== ENCOUNTER → 2018-07-20 06:43 | Outpatient (CLI) | payer MEDICARE, OTHER, SELFPAY ==
--- NOTE | 2018-07-20 06:53 | MRI_ITS ---
STUDY: MRI RIGHT SHOULDER REASON FOR EXAM: Female, 67 years old. Right shoulder pain for over one year. TECHNIQUE: Standardized fat and water weighted pulse sequences were obtained in all 3 orthogonal planes. COMPARISON: X-rays of the right shoulder dated July 17, 2018. FINDINGS: There are full thickness full width retracted supraspinatus and infraspinatus tendon tears. The supraspinatus tendon is retracted approximately 4.3 cm from its insertion site. The infraspinatus tendon is retracted approximately 3.2 cm from its insertion site (coronal series 5 images 4-16). There is marked subscapularis tendinosis with a longitudinal partial tear of the distal fibers with medial subluxation of the long head of the biceps into the partial tear (hidden lesion) (axial series 3 images 7-17). There is teres minor tendinosis (axial series 3 image 11). There is marked atrophy of the supraspinatus and infraspinatus muscles (sagittal series 7 images 9-16). Normal subscapularis muscle. Normal teres minor muscle. There is moderate arthrosis of the glenohumeral joint with a large glenohumeral joint effusion (axial series 3 images 9-17). There is superior migration of the humeral head with cystic change in the lesser tuberosity (coronal series 5 image 13, axial series 3 image 9). Normal biceps labral complex. There is tendinosis of the intertubercular portion of the long head of the biceps (axial series 3 image 18). Normal labrum. Normal capsulo- ligamentous complex. Normal rotator interval. There is marked acromioclavicular joint hypertrophy with narrowing of the subacromial space. There is an effusion of the acromioclavicular joint (coronal series 5 images 10-19). There is a Type II morphology (curved), with a neutral orientation. There is a large amount of fluid in the subacromial-subdeltoid bursa with dissection of fluid into the anterior and posterior components of the deltoid (ganglion cysts (coronal series 5 images 1-16). Normal visualized coracohumeral and coracoacromial ligaments. Normal quadrilateral space. Normal axillary space. Normal deltoid muscle. Normal trapezius muscle. MRI/Upper Ext Joint Only(Routine) IMPRESSION: Full-thickness full width retracted supraspinatus and infraspinatus tendon tears as described. Subscapularis tendinosis with a longitudinal partial tear of the distal fibers and medial subluxation of the long head of the biceps into the partial tear (hidden lesion). Mild teres minor tendinosis. Marked atrophy of the supraspinatus and infraspinatus muscles. Moderate arthrosis of the glenohumeral joint. Superior migration of the humeral head. Tendinosis of the intertubercular portion of the long head of the biceps. Marked acromioclavicular joint hypertrophy with narrowing of the subacromial space. Effusion of the acromioclavicular joint. Large amount of fluid in the subacromial-subdeltoid bursa. Anterior and posterior deltoid ganglion cysts. Large glenohumeral joint effusion. Electronically Signed: Ousmane Stanley MD at 12:40 EST , Service support ,
== END ==
PROVIDERS: Family Provider Family Medicine; PCP Family Medicine; Referring Provider Physician Assistant; Visit Provider Physician Assistant
DX: M19.011 Primary osteoarthritis, right shoulder (principal)
CPT/HCPCS: 73221

== ENCOUNTER 2018-08-13 08:31 | Day surgery (SDC) | payer MEDICARE, OTHER, SELFPAY ==
--- NOTE | 2018-07-24 11:28 | EKG12_ITS ---
Test Reason : PREOP Blood Pressure : / mmHG Vent. Rate : 067 BPM Atrial Rate : 067 BPM P-R Int : 142 ms QRS Dur : 074 ms QT Int : 384 ms P-R-T Axes : 043 -06 029 degrees QTc Int : 405 ms Sinus rhythm with marked sinus arrhythmia Septal infarct , age undetermined Abnormal ECG Confirmed by DEIRDRE MCMILLAN, BELKYS ([id number]), book or script editor MIGUEL CORDERO ([id number]) on 07/27/2018 2:37:52 PM Referred By: Heriberto Sehti Confirmed By:BELKYS GILMORE MD
[2018-07-24 12:42] LABS: Absolute Lymphocyte Count 2.19 X10^3/ul (0.83-4.51); Absolute Neutrophil Count 10.6 X10^3/uL (2.0-7.7); Basophil# 0.04 X10^3/uL; Basophil% 0.3 % (0-1); Eosinophil# 0.23 X10^3/uL; Eosinophils% 1.6 % (0-5); Hematocrit 40.9 % (37-47); Hemoglobin 12.6 g/dl (12.0-15.0); Lymphocyte # 2.19 X10^3/ul (4.0); Lymphocyte % 15.5 % (19-41); Mean Corp Hgb Conc 30.8 g/gl (32-36); Mean Corpuscular Hgb 29.4 pg (27.0-32.0); Mean Corpuscular Volume 95.6 fL (81-99); Monocyte# 0.99 X10^3/uL; Neutrophil # 10.64 X10^3/uL (2.7-7.7); Neutrophil % 75.5 % (47-70); Platelet Count 387 K/mm3 (150-450); RBC Distribution Width CV 13.9 % (11.6-14.6); RBC Distribution Width SD 48.1 fl (35.1-43.9); Red Blood Count 4.28 M/mm3 (4.2-5.4); White Blood Count 14.1 K/mm3 (4.4-11.0)
[2018-07-24 12:46] LABS: POSITIVE COUNT NO; POSITIVE DIFFERENTIAL NO; POSITIVE MORPHOLOGY NO
[2018-07-24 13:17] LABS: Anion Gap 11 (5-15); BUN 16 mg/dL (7-18); BUN/Creat Ratio 18.9 RATIO (10-20); Calcium,Total 8.9 mg/dL (8.5-10.1); Chloride 105 mmol/L (98-107); Creatinine, Serum 0.85 mg/dL (0.55-1.02); EST Glomerular Filtration Rate 71 mL/min (>60); Est Glom Filt Rate - Afr Amer 86 mL/min (>60); Glucose 92 mg/dL (74-106); Potassium 4.1 mmol/L (3.5-5.1); Sodium Level 140 mmol/L (136-145); Thyroid Stim Hormone (TSH) 7.13 uIU/mL (0.358-3.74)
[2018-08-13 08:55] VITALS: BP 158/77; PULSE 78; RESP 16; TEMP 36.2; O2SAT 97; BMI 28.7
[2018-08-13] MEDS: Cefazolin 2 GM in 0.9% Normal Saline 100 ML IV (10:35)
[2018-08-13] MEDS: Bupiv/Epi 0.5% Mpf 30 ML Vial (11:07)
--- NOTE | 2018-08-13 11:43 | PCM.IMDPSTOP ---
Immediate Post-Op Note Date of Procedure: 08/13/18 Primary Surgeon/Physician: Heriberto Sethi bench worker binding: Ousmane Echols Pre-Operative Diagnosis: SAIS, AC arthrosis, bicipital tendonitis, massive rotator cuff tear, OA right shoulder Post-Operative Diagnosis: same with irrreparable rotator cuff tear Surgery/Procedure Performed:: ASD, Cynthia procedure, biceps teneotomy, inta-articular debridement Right Description of Surgical Findings:: see op note Estimated Blood Loss: minimal Specimen's removed: none Type of Anesthesia:: General/Regional ASA Class: ASA2 Mod Systematic Disease - Admit VTE Documentation VTE Present on Admission: No VTE Mechan Device Prophylaxis: SCD's VTE Pharm Prophylaxis ordered?: No Reason prophylaxis not ordered:: Treatment Not Indicated
--- NOTE | 2018-08-13 11:47 | OP.PN_ITS ---
Immediate Post-Op Note Date of Procedure: 08/13/18 Primary Surgeon/Physician: Heriberto Sethi housekeeper child care: Ousmane Echols Pre-Operative Diagnosis: SAIS, AC arthrosis, bicipital tendonitis, massive rotator cuff tear, OA right shoulder Post-Operative Diagnosis: same with irrreparable rotator cuff tear Surgery/Procedure Performed:: ASD, Cynthia procedure, biceps teneotomy, inta- articular debridement Right Description of Surgical Findings:: see op note Estimated Blood Loss: minimal Specimen's removed: none Type of Anesthesia:: General/Regional ASA Class: ASA2 Mod Systematic Disease - Admit VTE Documentation VTE Present on Admission: No VTE Mechan Device Prophylaxis: SCD's VTE Pharm Prophylaxis ordered?: No Reason prophylaxis not ordered:: Treatment Not Indicated
[2018-08-13 12:03] VITALS: BP 158/77; BP 165/76; PULSE 82; RESP 16; TEMP 36.4; O2SAT 96
[2018-08-13 12:15] VITALS: BP 158/77; BP 172/79; PULSE 72; RESP 14; O2SAT 94
[2018-08-13 12:30] VITALS: BP 158/77; BP 175/76; PULSE 76; RESP 14; O2SAT 96
[2018-08-13 12:33] VITALS: BP 158/77; BP 178/73; PULSE 78; RESP 14; TEMP 36.4; O2SAT 95
[2018-08-13 14:34] VITALS: BP 158/77; BP 167/76; PULSE 90; RESP 16; TEMP 36.7; O2SAT 95
--- OUTSIDE RECORDS SUMMARY | 2018-10-06 09:02 | XMS RPT_ITS ---
:1950 Author Organization OHIP Support Name Relationship Address Phone R Unavailable Unavailable Unavailable SCHRIBER, YOUNG Unavailable [address] + [place] [address] CLIFTON, JEAN CLAUDE Unavailable [address] + [place] [address] R Unavailable Unavailable Unavailable SCHRIBER, YOUNG Unavailable [address] + [place] [address] CLIFTON, JEAN CLAUDE Unavailable [address] + [place] [address] R Unavailable Unavailable Unavailable SCHRIBER, YOUNG Unavailable [address] + [place] [address] CLIFTON, JEAN CLAUDE Unavailable [address] + [facility] [place] [address] R Unavailable Unavailable Unavailable SCHRIBER, YOUNG Unavailable [address] + [place] [address] YOUNG, JEAN CLAUDE Unavailable [address] + [place] [address] R Unavailable Unavailable Unavailable SCHRIBER, YOUNG Unavailable [address] + [place] [address] CLIFTON, JEAN CLAUDE Unavailable [address] + [facility] [place] [address] R Unavailable Unavailable Unavailable SCHRIBER, YOUNG Unavailable [address] + [place] [address] YOUNG, JEAN CLAUDE Unavailable [address] + [facility] [place] [address] R Unavailable Unavailable Unavailable SCHRIBER, YOUNG Unavailable [address] + [place] [address] YOUNG, JEAN CLAUDE Unavailable [address] + [place] [address] R Unavailable Unavailable Unavailable SCHRIBER, YOUNG Unavailable [address] + [place] [address] YOUNG, JEAN CLAUDE Unavailable [address] + [place] [address] R Unavailable Unavailable Unavailable SCHRIBER, YOUNG Unavailable [address] + [place] [address] YOUNG, JEAN CLAUDE Unavailable [address] + [place] [address] R Unavailable Unavailable Unavailable SCHRIBER, YOUNG Unavailable [address] + [place] [address] YOUNG, JEAN CLAUDE Unavailable [address] + [place] [address] R Unavailable Unavailable Unavailable SCHRIBER, YOUNG Unavailable [address] + [place] [address] YOUNG, JEAN CLAUDE Unavailable [address] + [place] [address] R Unavailable Unavailable Unavailable SCHRIBER, YOUNG Unavailable [address] + [place] [address] YOUNG, JEAN CLAUDE Unavailable [address] + [place] [address] R Unavailable Unavailable Unavailable SCHRIBER, YOUNG Unavailable [address] + [place] [address] YOUNG, JEAN CLAUDE Unavailable [address] + [place] [address] R Unavailable Unavailable Unavailable SCHRIBER, YOUNG Unavailable [address] + [place] [address] YOUNG, JEAN CLAUDE Unavailable [address] + [place] [address] R Unavailable Unavailable Unavailable SCHRIBER, YOUNG Unavailable [address] + [place] [address] YOUNG, JEAN CLAUDE Unavailable [address] + [place] [address] R Unavailable Unavailable Unavailable SCHRIBER, YOUNG Unavailable [address] + [place] [address] YOUNG, JEAN CLAUDE Unavailable [address] + [place] [address] R Unavailable Unavailable Unavailable SCHRIBER, YOUNG Unavailable [address] + [place] [address] YOUNG, JEAN CLAUDE Unavailable [address] + [place] [address] R Unavailable Unavailable Unavailable SCHRIBER, YOUNG Unavailable [address] + [place] [address] YOUNG, JEAN CLAUDE Unavailable [address] + [place] [address] R Unavailable Unavailable Unavailable SCHRIBER, YOUNG Unavailable [address] + [place] [address] YOUNG, JEAN CLAUDE Unavailable [address] + [place] [address] R Unavailable Unavailable Unavailable SCHRIBER, YOUNG Unavailable [address] + [place] [address] YOUNG, JEAN CLAUDE Unavailable [address] [phone] [place] [address] R Unavailable Unavailable Unavailable SCHRIBER, YOUNG Unavailable [address] + [place] [address] YOUNG, JEAN CLAUDE Unavailable [address] [phone] [place] [address] R Unavailable Unavailable Unavailable SCHRIBER, YOUNG Unavailable [address] + [place] [address] YOUNG, JEAN CLAUDE Unavailable [address] [phone] [place] [address] R Unavailable Unavailable Unavailable SCHRIBER, YOUNG Unavailable [address] + [place] [address] YOUNG, JEAN CLAUDE Unavailable [address] + [place] [address] Care Team Providers Name Role Phone MARTIN JUAREZ (NIKO) Referring Unavailable ALEX LANG Attending Unavailable MARTIN JUAREZ) Attending Unavailable Ebenezer Walker Attending Unavailable Ebenezer Vann Referring Unavailable Ebenezer Vann Primary Care Unavailable Hailee Garner Attending Unavailable Ebenezer Vann Referring Unavailable Ebenezer Vann Primary Care Unavailable Hailee Garner Attending Unavailable Ebenezer Vann Primary Care Unavailable Alex Lang Attending Unavailable Soo, Ebenezer Primary Care Unavailable Nataliya Lang Consulting Unavailable Soo, Ebenezer Attending Unavailable Soo, Ebenezer Referring Unavailable Soo, Ebenezer Primary Care Unavailable Soo, Ebenezer Attending Unavailable Soo, Ebenezer Referring Unavailable Soo, Ebenezer Primary Care Unavailable Soo, Ebenezer Attending Unavailable Soo, Ebenezer Primary Care Unavailable Laila Hernandez Attending Unavailable Carlos, Sunny Attending Unavailable Soo, Ebenezer Referring Unavailable Soo, Ebenezer Primary Care Unavailable DAMON AKHTAR Attending Unavailable DAMON AKHTAR Referring Unavailable Soo, Ebenezer Primary Care Unavailable Brant Slater Attending Unavailable Soo, Ebenezer Referring Unavailable Soo, Ebenezer Primary Care Unavailable Gold, Saadia Attending Unavailable Soo, Ebenezer Referring Unavailable Soo, Ebenezer Primary Care Unavailable Gold, Saadia Attending Unavailable Gold, Saadia Referring Unavailable Soo, Ebenezer Primary Care Unavailable Gold, Saadia Attending Unavailable Gold, Saadia Referring Unavailable Soo, Ebenezer Primary Care Unavailable Ann Martinez Consulting Unavailable Hailee Garner Attending Unavailable Soo, Ebenezer Referring Unavailable Soo, Ebenezer Primary Care Unavailable Soo, Ebenezer Primary Care Unavailable Mamta Saxena Admitting Unavailable KoramSavannah Attending Unavailable Mamta Saxena Attending Unavailable Soo, Ebenezer Primary Care Unavailable Sean Dominguez Attending Unavailable White, Mamta Referring Unavailable BasalJose berry Attending Unavailable BasaliJose Referring Unavailable Soo, Ebenezer Primary Care Unavailable Hailee Garner Attending Unavailable Soo, Ebenezer Referring Unavailable Ousmane Echols Attending Unavailable Ousmane Echols Referring Unavailable Soo, Ebenezer Primary Care Unavailable Heriberto Sethi Attending Unavailable Soo, Ebenezer Primary Care Unavailable Jossie Heriberto Referring Unavailable Carlos, Sunny Attending Unavailable Heriberto Sethi Referring Unavailable PROBLEMS PROBLEMS DATE TYPE CONDITION / CODE ATTENDING STATUS SOURCE 08/01/2018 Unknown R94.31 - Abnormal Carlos, Sunny Active [facility] Community [ECG] [EKG] / Hospital R94.31(ICD-10) Repository 06/05/2018 Unknown M54.5 - Low back pain Gold, Saadia Active [facility] / M54.5(ICD-10) [facility] Repository 06/05/2018 Unknown M54.2 - Cervicalgia / Gold, Saadia Active [facility] M54.2(ICD-10) [facility] Repository 06/05/2018 Unknown M70.60 - Trochanteric GoldSaadia Active [facility] bursitis, unspecified Community hip / M70.60(ICD-10) Hospital Repository 07/17/2018 Unknown R07.9 - Chest pain, [place], Active [facility] unspecified / [facility] Community R07.9(ICD-10) Hospital Repository 03/14/2018 Unknown Z23 - Encounter for Brant Slater Active [facility] immunization / Community Z23(ICD-10) Hospital Repository 03/12/2018 Unknown E03.9 - DAMON AKHTAR Active [facility] Hypothyroidism, Community unspecified / Hospital E03.9(ICD-10) Repository 02/23/2018 Unknown Z98.61 - Coronary Carlos, Sunny Active [facility] angioplasty status / Community Z98.61(ICD-10) Hospital Repository 02/23/2018 Unknown E78.5 - Carlos, [place] Active [facility] Hyperlipidemia, Community unspecified / Hospital E78.5(ICD-10) Repository 12/14/2017 Active Pain, unspecified / NA Active [facility] R52(ICD-10) Clinic Other [facility] Repository 05/23/2018 Unknown S49.90XA - Unspecified Ebenezer Walker Active [facility] injury of shoulder and Community upper arm, unspecified Hospital arm, initial encounter Repository / S49.90XA(ICD-10) 05/23/2018 Unknown M25.511 - Pain in Ebenezer Walker Active [facility] right shoulder / Community M25.511(ICD-10) Hospital Repository PROCEDURES PROCEDURES No Procedure Records FoundRESULTS RESULTS 12 LEAD ELECTROCARDIOGRAM Observed: 07/27/2018 Status: F Source: RAJENDRA 2:38 PM [facility] REPOSITORY [facility] Cardiovascular Services [address] [place] [address] 12 Lead EKG 07/24/18 1132 MR#: [id number] Acct: [id number] Name: EMELYN WOLF Rep #: [id number] : 1950 67 From: Sunny Gonzalez MD Attending Dr: Heriberto Sethi DO Status: PRE SDC Ordering Dr: Heriberto Sethi DO Date: 07/24/18 Location: [facility] Sex: F C Admitted: Test Reason : PREOP Blood Pressure : / mmHG Vent. Rate : 067 BPM Atrial Rate : 067 BPM P-R Int : 142 ms QRS Dur : 074 ms QT Int : 384 ms P-R-T Axes : 043 -06 029 degrees QTc Int : 405 ms Sinus rhythm with marked sinus arrhythmia Septal infarct , age undetermined Abnormal ECG Confirmed by CARLOS MCMILLAN, SUNNY ([id number]), staff editor MIGUEL CORDERO ([id number]) on 07/27/2018 2:37:52 PM Referred By: Heriberto Sethi Confirmed By:SUNNY GONZALEZ MD 07/27/18 1437 Date Sunny Gonzalez MD CC: Ebenezer Vann DO; Heriberto Sethi DO Signed CBC W/DIFF, AUTOMATED Collected: 07/24/2018 Status: F Source: RAJENDRA 11:17 AM [facility] REPOSITORY TYPE CODE TESTS RESULT OUT OF RANGE REFERENCE UNITS LAB L100.1000 4.4-11.0 K/mm3 High WBC 14.1 LAB L100.1200 4.2-5.4 M/mm3 Normal RBC 4.28 LAB L100.1300 12.0-15.0 g/dl Normal HGB 12.6 LAB L100.1400 37-47 % Normal HCT 40.9 LAB L100.1500 81-99 fL Normal MCV 95.6 LAB L100.1600 27.0-32.0 pg Normal MCH 29.4 LAB L100.1700 32-36 g/gl Low MCHC 30.8 LAB L100.1810 11.6-14.6 % Normal RDW CV 13.9 LAB L100.1820 35.1-43.9 fl High RDW SD 48.1 LAB L100.1900 150-450 K/mm3 Normal PLT 387 LAB L100.2000 6.2-12.0 fl Normal MPV 10.0 LAB L100.2100 47-70 % High NEUT% 75.5 LAB L100.2200 19-41 % Low LY% 15.5 LAB L100.2300 0-10 % Normal MONO% 7.0 LAB L100.2400 0-5 % Normal EO% 1.6 LAB L100.2500 0-1 % Normal BASO% 0.3 LAB L100.2550 0.0-0.9 % Normal IM GRAN % 0.100 Result Comment: IG% - Immature Granulocytes (promyelocytes, myelocytes and metamyelocytes) > 1% indicates that a LEFT SHIFT is Present. LAB L100.2620 2.0-7.7 X10 3/uL High Absolute Neut 10.6 LAB L100.2720 0.83-4.51 X10 3/ul Normal Absolute Lymph 2.19 Performed By: #### L100.0100 #### [facility] [address] [place], [place], [address] BASIC METABOLIC Collected: 07/24/2018 Status: F Source: RAJENDRA PROFILE (BMP) 11:17 AM [facility] REPOSITORY TYPE CODE TESTS RESULT OUT OF RANGE REFERENCE UNITS LAB L501.0100 74-106 mg/dL Normal GLU 92 Result Comment: Please note revised GLUCOSE reference range effective 2017. LAB L501.1000 7-18 mg/dL Normal BUN 16 LAB L501.1100 0.55-1.02 mg/dL Normal CREAT,SERUM 0.85 Result Comment: The validity of the calculated GFR AND GFRAA in patients over 70 years has not been determined. Clinical correlation is essential. LAB L501.1110 >60 mL/min Normal EST GFR 71 Result Comment: Non- GFR Calc LAB L501.1115 >60 mL/min Normal EST GFR - AA 86 Result Comment: GFR Calc LAB L501.1300 10-20 RATIO Normal BUN/CRE 18.9 LAB L501.2200 8.5-10.1 mg/dL CA Normal 8.9 LAB L501.5300 136-145 mmol/L NA Normal 140 LAB L501.5600 3.5-5.1 mmol/L K Normal 4.1 LAB L501.5900 98-107 mmol/L CL Normal 105 LAB L501.6100 21.0-32.0 mmol/L Normal CO2 24.0 LAB L501.6200 5-15 Normal GAP 11 Performed By: #### L500.2500, L501.9520 #### [facility] [address] [place], [place], [address] THYROID STIM HORMONE Collected: 07/24/2018 Status: F Source: RAJENDRA (TSH) 11:17 AM [facility] REPOSITORY TYPE CODE TESTS RESULT OUT OF RANGE REFERENCE UNITS LAB L501.9520 0.358-3.74 uIU/mL High TSH 7.13 Performed By: #### L500.2500, L501.9520 #### [facility] [address] [place], [place], [address] UPPER EXT JOINT Observed: 07/20/2018 Status: F Source: RAJENDRA ONLY(ROUTINE) 6:53 AM [facility] REPOSITORY [facility] Imaging Services [address] [place] [address] Upper Ext Joint Only(Routine) MR#: [id number] Acct: [id number] Name: EMELYN WOLF Rep #: [id number] : 1950 F 67 From: Ousmane Stanley MD PCP: Ebenezer Vann DO Status: REG CLI Study: Upper Ext Joint Only(Routine) Date of Exam: 07/20/18 Exam# [id number] Ordering Dr: Ousmane Echols PA-C STUDY: MRI RIGHT SHOULDER REASON FOR EXAM: Female, 67 years old. Right shoulder pain for over one year. TECHNIQUE: Standardized fat and water weighted pulse sequences were obtained in all 3 orthogonal planes. COMPARISON: X-rays of the right shoulder dated July 17, 2018. FINDINGS: There are full thickness full width retracted supraspinatus and infraspinatus tendon tears. The supraspinatus tendon is retracted approximately 4.3 cm from its insertion site. The infraspinatus tendon is retracted approximately 3.2 cm from its insertion site (coronal series 5 images 4-16). There is marked subscapularis tendinosis with a longitudinal partial tear of the distal fibers with medial subluxation of the long head of the biceps into the partial tear (hidden lesion) (axial series 3 images 7-17). There is teres minor tendinosis (axial series 3 image 11). There is marked atrophy of the supraspinatus and infraspinatus muscles (sagittal series 7 images 9-16). Normal subscapularis muscle. Normal teres minor muscle. There is moderate arthrosis of the glenohumeral joint with a large glenohumeral joint effusion (axial series 3 images 9-17). There is superior migration of the humeral head with cystic change in the lesser tuberosity (coronal series 5 image 13, axial series 3 image 9). Normal biceps labral complex. There is tendinosis of the intertubercular portion of the long head of the biceps (axial series 3 image 18). Normal labrum. Normal capsulo- ligamentous complex. Normal rotator interval. There is marked acromioclavicular joint hypertrophy with narrowing of the subacromial space. There is an effusion of the acromioclavicular joint (coronal series 5 images 10-19). There is a Type II morphology (curved), with a neutral orientation. There is a large amount of fluid in the subacromial-subdeltoid bursa with dissection of fluid into the anterior and posterior components of the deltoid (ganglion cysts (coronal series 5 images 1-16). Normal visualized coracohumeral and coracoacromial ligaments. Normal quadrilateral space. Normal axillary space. Normal deltoid muscle. Normal trapezius muscle. MRI/Upper Ext Joint Only(Routine) IMPRESSION: Full-thickness full width retracted supraspinatus and infraspinatus tendon tears as described. Subscapularis tendinosis with a longitudinal partial tear of the distal fibers and medial subluxation of the long head of the biceps into the partial tear (hidden lesion). Mild teres minor tendinosis. Marked atrophy of the supraspinatus and infraspinatus muscles. Moderate arthrosis of the glenohumeral joint. Superior migration of the humeral head. Tendinosis of the intertubercular portion of the long head of the biceps. Marked acromioclavicular joint hypertrophy with narrowing of the subacromial space. Effusion of the acromioclavicular joint. Large amount of fluid in the subacromial-subdeltoid bursa. Anterior and posterior deltoid ganglion cysts. Large glenohumeral joint effusion. Electronically Signed: Ousmane Stanley MD at 12:40 EST , Service support , CC: Ebenezer Vann DO; Ousmane POPE Project Manager Interior Design: Signed SHOULDER MIN 2 VIEWS Observed: 07/17/2018 Status: F Source: TRIVOLI 10:49 AM [facility] REPOSITORY [facility] Imaging Services [address] [place] [address] Shoulder min 2 Views MR#: [id number] Acct: [id number] Name: EMELYN WOLF Rep #: [id number] : 1950 F 67 From: Ele Olmos MD PCP: Ebenezer Vann DO Status: REG CLI Study: Shoulder min 2 Views Date of Exam: 07/17/18 Exam# [id number] Ordering Dr: Jose Lozano MD STUDY: X-RAY - RIGHT SHOULDER REASON FOR EXAM: Female, 67 years old. CHRONIC SHPILDER PAIN TECHNIQUE: 2 view(s) of the shoulder. COMPARISON: September 15, 2017 FINDINGS: Joint space appears preserved of the glenohumeral joint joint space articulation. It does appear that there is minimal spurring of the glenoid. There is degenerative arthrosis of the acromioclavicular joint with small inferior osseous spur formation. Normal acromion. There is mild osseous spurring associated with the lateral aspect of the humeral head near the far insertion of the supraspinatus tendon otherwise the humerus has an unremarkable appearance. The soft tissue structures are unremarkable. Normal visualized pulmonary apex. RAD/Shoulder min 2 Views IMPRESSION: Mild degenerative arthrosis. No significant interval change. Electronically Signed: Ele Olmos MD at 9:27 EST , Service support , CC: Jose Lozano MD; Ebenezer Vann DO; Ousmane POPE Project Manager Interior Design: Signed PT D/C SUMMARY (1) Observed: 06/05/2018 Status: F Source: TRIVOLI 1:54 PM [facility] REPOSITORY [facility] Physical Therapy [facility] [address] [place] [address] Fax REHABILITATION SERVICES DISCHARGE SUMMARY MR#: [id number] Acct: [id number] Name: EMELYN WOLF Rep #: [id number] : 1950 67 From: Sarah Hills MPT Referring Dr.: Saadia Gold MD Status: REG RCR Insurance: MEDICARE PART A B [employer] HP - PT D/C Summary It has been my pleasure to treat EMELYN WOLF under orders from Saadia Gold, for the diagnosis of LBP, neck pain, greater trochanter bursitits for a total of 13 visit(s). Discharge Date: 06/05/18 Please see the following information for a summary of their discharge status. - Subjective Subjective: Pt reports that her R shoulder ( had an injection in February or March ) and did not help very much and one night she had horrid pain... She is thinking that she needs that to be looked at. She wants to do her exercises at home. She learned a lot about posture and managing that has helped her. Can sleep on L side now - Pain back pain\ Pain Intensity (Out of 10): 1 L hip pain Pain Intensity (Out of 10): 1 cervical spine Pain Intensity (Out of 10): 2 - Overall Improvement % Improvement: 80 - Objective Objective/Function: LE MMT: L hip abd 4/5 and R hip abd 4+/5, B hip flex 4+/5, B knee flex 4+/5 and B knee ext 4+/5, Able to heel and toe raise with some LOB - Goals Goal 1:: I HEP ( pt would like HEP) when done Goal Progress: Goal Met Goal 2:: Increase B hip and LE strength by 1/2 muscle grade (at time of eval LE MMT: B hip flex 4-/5, B knee ext 4/5, B knee flex 4/5, B hip abd 4-/5, B hip ext 3-/5. Pt is able to heel and toe walk without issue). Goal Progress: Goal Met Goal 3:: Decrease back pain to 2/10 with standing Goal Progress: Progressing Goal 4:: Be able to sleep at night on her L side (hip pain) and R side (shoulder pain) without having pain Goal Progress: Goal Met - Plan Plan: DC PT to HEP - D/C Information Discharge Comments: DC PT to HEP If there are questions or concerns regarding this patient's physical therapy, please feel free to call me at [phone]. Thank you for the referral of this patient. Sincerely, Sarah Hills <Electronically signed by Sarah Hills MPT> 06/05/18 2613 CC: Saadia Gold MD; Ebenezer Vann DO Signed RE-EVALUATION - PT (1) Observed: 05/18/2018 Status: F Source: TRIVOLI 12:47 PM [facility] REPOSITORY [facility] Physical [facility] [address] [place] [address]. [address] [place] [address] Fax REEVALUATION / MEDICARE RECERTIFICATION PHYSICAL THERAPY MR#: [id number] Acct: [id number] Name: EMELYN WOLF Rep #: [id number] : 1950 67 From: Sarah SOTO Referring Dr.: Saadia Gold MD Status: REG RCR Insurance: MEDICARE PART A B [employer] Saadia Gold, It has been my pleasure to treat EMELYN WOLF over the last 8 visits for LBP, neck pain, greater trochanter bursitits. Please see the progress note below for an update on the physical therapy plan of care! Subjective: Pt reports that she was having some shoulder pain and had a stress test and it was negative. She always has a tightened up feeling being on the PREDNISONE. She thinks her flare could have been the polyrhumatica. Last time in PT they worked on stretching cause she felt so tight. Pt feels that the stretches that Merry gave her has helped a lot. She does have traction at home alos. SHe has an appointment Monday with Dr Lozano. Pt reports that her main goal is to get a home program, but a few more visits she thinks would be beneficial and she is not good at doing her stretches at home. General back pain is 2-3 on daily basis but standing is worse. Walking is not as bad. Pt is now able to sleep on her shoulder now. Pt is now able to sleep on her hip as well. Objective/Function: LE MMT: hip flex R 4-/5, and L 4/5, R knee ext 4-/5 and knee ext 4/5, B knee flex 4/5, B hip abd 4/5, B hip ext 3-/5. Pt is able to heel and toe walk without issue). Plan Plan: Add 2X/ wee for 2 additional weeks and then gear toward HEP. Would recommend Continued PT at this time. Goals Goal 1:: I HEP ( pt would like HEP) when done Goal Time Frame: 4-6 Weeks Goal Progress: Progressing Goal 2:: Increase B hip and LE strength by 1/2 muscle grade (at time of eval LE MMT: B hip flex 4-/5, B knee ext 4/5, B knee flex 4/5, B hip abd 4-/5, B hip ext 3-/5. Pt is able to heel and toe walk without issue). Goal Time Frame: 4-6 Weeks Goal 3:: Decrease back pain to 2/10 with standing Goal Time Frame: 4-6 Weeks Goal 4:: Be able to sleep at night on her L side (hip pain) and R side (shoulder pain) without having pain Goal Time Frame: 4-6 Weeks Anticipated Interventions Patient/Client Instruction: Educate patient on: Plan of Care For the Purpose of:: To decrease pain, To decrease swelling/inflammation, To increase ROM, To improve nutrient delivery to tissue, To improve muscle performance and motor function, To improve ability to perform ADL's, To increase tolerance to activity/condition/position, To improve performance and independence with ADL's, To improve ability of physical actions for home/community/work/leisure, To improve gait and locomotor functions, To improve health of tissue, To decrease soft tissue restriction, To increase flexibility/ROM Therapeutic Exercise to Include: Strength training, Postural training, Flexibilty training, Gait and locomotor training, Active ROM, Dynamic Lumbar Stabilization, Scapular Strength/Stabilization For the Purpose of:: To decrease pain, To increase ROM, To improve nutrient delivery to tissue, To improve muscle performance and motor function, To improve ability to perform ADL's, To increase tolerance to activity/condition/position, To improve performance and independence with ADL's, To improve gait and locomotor functions, To improve health of tissue, To decrease soft tissue restriction, To increase flexibility/ROM Please do not hesitate to contact me at [phone] by phone or if you have questions or concerns regarding this new plan of care! Sincerely, Sarah Hills <Electronically signed by Sarah Hills MPT> 05/18/18 1247 CC: Saadia Gold MD; Ebenezer Vann DO Signed For Medicare only, by signing this I certify the plan of care. Physicians Signature Date 12 LEAD ELECTROCARDIOGRAM Observed: 05/15/2018 Status: F Source: TRIVOLI 1:58 PM [facility] REPOSITORY [facility] Cardiovascular Services [address] [place] [id number] 12 Lead EKG 05/11/18 0355 MR#: [id number] Acct: [id number] Name: EMELYN WOLF Rep #: [id number] : 1950 67 From: Lakhwinder Shelton MD Attending Dr: Savannah Miller MD Status: DIS GUILLERMINA Ordering Dr: Jose Luis Grijalva DO Date: 05/11/18 Location: [facility] Sex: F C Admitted: 05/11/18 Test Reason : CP REPEAT Blood Pressure : / mmHG Vent. Rate : 057 BPM Atrial Rate : 057 BPM P-R Int : 160 ms QRS Dur : 070 ms QT Int : 406 ms P-R-T Axes : 068 002 036 degrees QTc Int : 395 ms Sinus bradycardia Otherwise normal ECG When compared with ECG of 20-OCT-2012 10:59, No significant change was found Confirmed by LAKHWINDER SHELTON ([id number]), staff editor MIGUEL CORDERO ([id number]) on 05/15/2018 1:57:58 PM Referred By: DESTINI Confirmed By:LAKHWINDER SHELTON 05/15/18 1358 Date Lakhwinder Shelton MD CC: Ebenezer Vann DO; Savannah Miller MD; Jose Luis Grijalva Signed 12 LEAD ELECTROCARDIOGRAM Observed: 05/15/2018 Status: F Source: RAJENDRA 1:37 PM [facility] REPOSITORY [facility] Cardiovascular Services [address] [place] [address] 12 Lead EKG 05/11/18 0105 MR#: [id number] Acct: [id number] Name: EMELYN WOLF Rep #: [id number] : 1950 67 From: Lakhwinder Shelton MD Attending Dr: Savannah Miller MD Status: DIS GUILLERMINA Ordering Dr: Mamta Saxena Date: 05/11/18 Location: [facility] Sex: F C Admitted: 05/11/18 Test Reason : CP Blood Pressure : / mmHG Vent. Rate : 058 BPM Atrial Rate : 058 BPM P-R Int : 156 ms QRS Dur : 072 ms QT Int : 384 ms P-R-T Axes : 050 -10 -01 degrees QTc Int : 376 ms Sinus bradycardia Nonspecific T wave abnormality Abnormal ECG Confirmed by LAKHWINDER SHELTON ([id number]), staff editor MIGUEL CORDERO ([id number]) on 05/15/2018 1:36:42 PM Referred By: GURINDER Confirmed By:LAKHWINDER SHELTON 05/15/18 1336 Date Lakhwinder Shelton MD CC: Mamta Saxena; Ebenezer Vann DO; Savannah Miller MD Signed DISCHARGE SUMMARY Observed: 05/11/2018 Status: F Source: RAJENDRA 2:14 PM [facility] REPOSITORY [facility] Medical Records Department [address] [place] [address] Discharge Summary 05/11/18 1023 MR#: [id number] Acct: [id number] Name: EMELYN WOLF Rep #: [id number] : 1950 67 From: Kiara Gaona MIXER DRIVERLelaC PCP: Ebenezer Vann DO Status: DIS GUILLERMINA Y [id number] <Kiara Gaona - Last Filed: 05/11/18 10:33> Discharge Date and Diagnosis Date of Admission: 05/11/18 Date of Discharge: 05/11/18 - Primary Discharge Diagnosis Active and Suspected Problems (Last Reviewed 03/14/18 @ 13:19 by Ann Miramontes) 1. Musculoskeletal chest pain - Secondary Discharge Diagnosis Chronic Problems (Last Reviewed 03/14/18 @ 13:19 by Ann Miramontes) Hyperlipidemia (Chronic) Supraventricular tachycardia (Chronic) Postsurgical percutaneous transluminal coronary angioplasty (PTCA) status (Chronic) 12/14/07 PTCA/stent (OMAR) to LAD FDC use of drug (Chronic) Antihyperlipidemic Hypothyroidism (acquired) (Chronic) Obstructive sleep apnea (Chronic) Polymyalgia rheumatica (Chronic) Nonhealing ulcer of left lower leg with fat layer exposed (Chronic) L97.922 nonhealing hematoma ulcer left lateral leg Open wound of left lower leg (Chronic) S81.802D open surgical hematoma wound left lateral leg Contusion of left lower leg (Chronic) S80.12xS 8 cm traumatic contusion left lateral leg History of GI bleed (Chronic) CAD S/P percutaneous coronary angioplasty (Chronic) 2008 History of coronary artery stent placement (Chronic) x 1 2008 Hospital Course and Treatment Imaging Results: Diagnostic Data Chest X-Ray 05/11/18 01:10 IMPRESSION: Degenerative changes, as described above. No demonstrated acute cardiopulmonary process. Electronically Signed: Audie Grossman, at 1:37 EDT Tel , Service support , Operations: None Procedures: Stress test Summary of Care Provided: The patient is a 67 year old F admitted 05/11/2018 due to chest pain. She has a past medical history of CAD status post PCI in 2007, paroxysmal atrial fibrillation status post ablation, anxiety, depression, obesity, history of GI bleed, hyperlipidemia, hypothyroidism, obstructive sleep apnea, polymyalgia rheumatica. Patient denies further chest pain. Complains of left upper back discomfort. She does state she was doing water aerobics when pain occurred. Troponin negative. Patient underwent nuclear stress test which was negative for ischemia. Suspect patient's pain is musculoskeletal in nature. Patient states she adjusts her chronic prednisone regimen based on how she is feeling. Advised patient to discuss this with her primary care physician. Lipid panel elevated. Patient has allergy to statin. Recommend further evaluation of fenofibrate or other lipid reducing medication by primary care physician. General: awake, alert, oriented x 3 and cooperative Skin: normal color, turgor, no icterus, cyanosis. HEENT: EOMI, PERRLA, no carotid bruits or JVD noted. Lungs: Clear to auscultation Heart: Regular rate, regular rhythm, no murmur. Abdomen: soft, obese, nontender Extremities: no cyanosis, clubbing, or edema. Neurological: Neuro grossly intact Psychiatric: affect appears normal Patient seen exam prior to discharge. Physical assessment as noted above. Patient stable for discharge home to follow-up with primary care physician in 1 week. This patient was seen by SONG Herrera under the supervision of Dr. Miller. Discharge Diet: Low fat/ Low Cholesterol Discharge Activity: Return to Normal Activity Call your doctor if you observe: Numbness or Tingling, Shortness of breath, Dizziness, Fainting spells, Chest pain Home Medications: Medications to take at Discharge Aspirin [Adult Low Dose Aspirin EC] 81 mg PO QHS 05/31/16 Cetirizine HCl [Zyrtec] 10 mg PO SUTUTHSA PRN 05/31/16 Fluticasone 0.05% [Flonase Nasal [place]] 1 spray NASAL QHS 05/31/16 Levothyroxine [Synthroid] 150 mcg PO DAILY 05/31/16 Metoprolol(XL)Succ [Toprol Xl (Beta Ashli)] 50 mg PO DAILY 05/31/16 Omeprazole [Prilosec] 40 mg PO DAILY 05/31/16 Venlafaxine HCl [Effexor] 37.5 mg PO QHS 05/31/16 traMADol [Ultram] 50 mg PO Q8H PRN PRN 05/31/16 prednisone 1 mg tablet 3 mg PO DAILY tab 02/23/18 Calcium Carb/Vitamin D [Caltrate-600 With Vit D Tab] 2 tab PO DAILY@1500 05/11/18 Clopidogrel Bisulfate [Plavix] 75 mg PO DAILY@1500 05/11/18 Primary Care Physician: Ebenezer Vann DO [Primary Care Provider] - Please follow up with your Primary Care Physician in: 1 Week Disposition: Home Minutes spent on discharge:: 35 Patient Condition:: Stable Medical Necessity - Tobacco Use Smoking Status: Never smoker Tobacco Use: Non-smoker Meaningful Use Info Meaningful Use Diagnoses (Choose all that apply): None applicable <Savannah Miller - Last Filed: 05/11/18 14:13> Discharge Date and Diagnosis - Secondary Discharge Diagnosis Chronic Problems (Last Reviewed 03/14/18 @ 13:19 by Ann Miramontes) Hyperlipidemia (Chronic) Supraventricular tachycardia (Chronic) Postsurgical percutaneous transluminal coronary angioplasty (PTCA) status (Chronic) 12/14/07 PTCA/stent (OMAR) to LAD FDC use of drug (Chronic) Antihyperlipidemic Hypothyroidism (acquired) (Chronic) Obstructive sleep apnea (Chronic) Polymyalgia rheumatica (Chronic) Nonhealing ulcer of left lower leg with fat layer exposed (Chronic) L97.922 nonhealing hematoma ulcer left lateral leg Open wound of left lower leg (Chronic) S81.802D open surgical hematoma wound left lateral leg Contusion of left lower leg (Chronic) S80.12xS 8 cm traumatic contusion left lateral leg History of GI bleed (Chronic) CAD S/P percutaneous coronary angioplasty (Chronic) 2008 History of coronary artery stent placement (Chronic) x 1 2008 Hospital Course and Treatment Imaging Results: 05/11/18 05:55 Nuclear Stress Test - Chemical [NM] AM (NON MEDS) Summary of Care Provided: Patient seen under my supervision by nurse practitioner Kiara Gaona. The patient is a 67 year old F admitted with a complaint of chest pain. Had a history as mentioned above. Chest pain had resolved at time of admission. She said this was similar to when she had her PA for which she had CABG and this time it started when she was having water therapy for her arthritis. Troponins were negative and she had a stress test which was also negative. Patient's lipid panel was elevated but she is allergic to statin and so she is to follow-up with her primary care doctor for start of fenofibrate or other lipid-lowering medication. Patient seen and examined prior to discharge. She had no complaints and felt well. She denied any fever or chills, cough or chest pain, shortness of breath, abdominal pain, vomiting. 12 point review of systems otherwise negative. Labs and vitals reviewed. Home medications reviewed and reconciled. o/e: vitals: Vital Signs Height 5 ft 6 in Weight: 186 lb 1.122 oz General: awake, alert, oriented x 3 and cooperative Skin: normal color, turgor, no icterus, cyanosis. HEENT: EOMI, PERRLA, no carotid bruits or JVD noted. Lungs: Clear to auscultation Heart: Regular rate, normal S1 and S2, regular rhythm, no murmur. Abdomen: soft, obese, nontender Extremities: no cyanosis, clubbing, or edema. Neurological: Neuro grossly intact,normal power, tone. CN II-XII intact Psychiatric: affect appears normal Plan as stated above. Patient was discharged on aspirin and Plavix which she had been on before to continue. Agree with rest of Kiara Drew's note, assessment and plan. [] Code Visit Inpatient E AND M: [id number] Disch Hosp 05/11/18 1034 <Electronically signed by Kiara AGUILARC> Date Kiara AGUILARC 05/11/18 1414<Electronically signed by Savannah Miller MD> Cosigner Signature (if applicable): Date Savannah Miller MD CC: MIXER DRIVER-Rajendra Gaona; Ebenezer Vann DO; Savannah Miller MD Signed DISCHARGE INSTRUCTION Observed: 05/11/2018 Status: F Source: RAJENDRA 10:23 AM [facility] REPOSITORY [facility] Medical Records Department [address] [place] [address] Instructions for Home/Discharge Instructions 05/11/18 1019 MR#: [id number] Acct: [id number] Name: EMELYN WOLF Rep #: [id number] : 1950 67 From: Kiara Gaona MIXER DRIVER-C PCP: Ebenezer Vann DO Status: ADM GUILLERMINA - Discharge Diagnoses Current Active Problems: Current Active and Chronic Problems (Last Reviewed 03/14/18 @ 13:19 by Ann Miramontes) Chest pain (Acute) You will use the following diet at home:: Cardiac Discharge Activity: Return to Normal Activity Call your doctor if you observe: Numbness or Tingling, Shortness of breath, Dizziness, Fainting spells, Chest pain Allergies/Adverse Reactions: Allergies adhesive tape Allergy (Verified 04/03/18 11:40) Rash pravastatin [From Pravachol] Allergy (Verified 04/03/18 11:40) MUSCLE PAIN cyclobenzaprine [From Flexeril] Adverse Reaction (Verified 04/03/18 11:40) EXTREME WEAKNESS NSAIDS (Non-Steroidal Anti-Inflamma Adverse Reaction (Verified 04/03/18 11:40) GI BLEED Medications to take at Discharge Aspirin [Adult Low Dose Aspirin EC] 81 mg PO QHS 05/31/16 Cetirizine HCl [Zyrtec] 10 mg PO SUTUTHSA PRN 05/31/16 Fluticasone 0.05% [Flonase Nasal [place]] 1 spray NASAL QHS 05/31/16 Levothyroxine [Synthroid] 150 mcg PO DAILY 05/31/16 Metoprolol(XL)Succ [Toprol Xl (Beta Ashli)] 50 mg PO DAILY 05/31/16 Omeprazole [Prilosec] 40 mg PO DAILY 05/31/16 Venlafaxine HCl [Effexor] 37.5 mg PO QHS 05/31/16 traMADol [Ultram] 50 mg PO Q8H PRN PRN 05/31/16 prednisone 1 mg tablet 3 mg PO DAILY tab 02/23/18 Calcium Carb/Vitamin D [Caltrate-600 With Vit D Tab] 2 tab PO DAILY@1500 05/11/18 Clopidogrel Bisulfate [Plavix] 75 mg PO DAILY@1500 05/11/18 Primary Care Physician: Ebenezer Vann DO [Primary Care Provider] - Please follow up with your Primary Care Physician in: 1 Week Test Results: Test results from this visit will be discussed in further detail at your follow-up appointment, if applicable. Proposed Discharge Date: 05/11/18 05/11/18 1023 <Electronically signed by Kiara ZULETA> Date Kiara ZULETA CC: Ebenezer Vann DO STRESS REPORT Observed: 05/11/2018 Status: F Source: TRIVOLI 9:07 AM [facility] REPOSITORY [facility] Cardiovascular Services [address] [place] [address] MR#: [id number] Acct: [id number] Name: EMELYN WOLF Rep #: [id number] : 1950 67 From: Sean Dominguez MD Primary Care: Ebenezer Vann DO Status: ADM GUILLERMINA Ordering Dr: Sex: F C Stress Test Report Date: 05/11/2018 Procedure: Pharmacologic stress nuclear imaging study Indications: Chest pain; CAD; status post PCI; SVT status post ablation Consent: Per the patient Procedure: The patient underwent pharmacologic (Regadenoson) evaluation with a peak heart rate of 79 beats per minute (51 predicted maximal heart rate) and a peak blood pressure of 162/88 mmHg. The baseline ECG demonstrated normal sinus rhythm. The peak pharmacologic ECG demonstrated no obvious ECG changes. There were no cardiac dysrhythmias pretest, during pharmacologic infusion, or recovery. There was no complaint of chest discomfort during pharmacologic infusion or recovery. The examination was discontinued secondary to completion of protocol. Impression: 1. Pharmacologic (Regadenoson) evaluation 2. Peak pharmacologic ECG with no obvious ECG changes. 3. There were no cardiac dysrhythmias pretest, during pharmacologic infusion, or recovery 4. Nuclear images pending Myocardial perfusion imaging study: Technique: The patient was injected with 11.6 millicuries of technetium 99m Cardiolite and subsequently rest SPECT Cardiolite nuclear imaging was obtained in the horizontal long, vertical long, and short axis views. The patient underwent pharmacologic (Regadenoson) evaluation with a peak heart rate of 79 beats per minute (51 % percent predicted maximal heart rate) and a peak blood pressure of 162/88 mmHg. The patient was injected with 32.9 millicuries of technetium 99m Cardiolite and subsequently stress SPECT Cardiolite nuclear imaging was obtained in the horizontal long, vertical long, and short axis views. The gated Cardiolite study at peak stress was not obtained. Interpretation: Rest and stress SPECT Cardiolite nuclear imaging status post realignment, normalization, and attenuation correction demonstrate relative uniform tracer uptake and myocardial perfusion appearing within normal limits. The gated Cardiolite study at peak stress was not obtained. Impression: 1. Rest and stress SPECT Cardiolite nuclear imaging demonstrate relative uniform tracer uptake and myocardial perfusion appearing within normal limits. 2. The gated Cardiolite study at peak stress was not obtained. This note was generated with [employer] software. It may contain incorrect words, spelling, and punctuation that were not noted in checking the note before signing. 05/11/18906 <Electronically signed by Sean Dominguez MD> Date Sean Dominguez MD CC: Ebenezer Vann DO; Savannah Miller MD Date Dictated: 05/11/18855 Date Transcribed: 05/11/18855 Project Manager Interior Design: PM Signed TROPONIN-I Collected: 05/11/2018 Status: F Source: RAJENDRA 8:15 AM [facility] REPOSITORY Order Comment: PT IS AT STRESS TEST @715 FWC WHEN BACK IN ROOM 'TROP' Serial specimen #1, #2 or #3: 3 TYPE CODE TESTS RESULT OUT OF RANGE REFERENCE UNITS LAB L501.4010 <0.045 ng/mL Normal < 0.015 TROPONIN-I Result Comment: TROPONIN-I EXPECTED VALUES <0.045 Negative 0.045 - 0.590 Consistent with Cardiac Damage > OR = 0.600 Critical Value Not every elevated troponin is indicative of PA. These values should be used with clinical judgement in examining the patient's clinical picture for diagnosis. To establish a diagnosis of PA versus myocardial injury, there must be a demonstrated rise and/or fall in the troponin values, in addition to ischemic symptoms, EKG changes, new regional wall motion abnormality, and/or angiographical evidence. PLEASE NOTE: REFERENCE RANGES EDITED 18 Performed By: #### L501.4010 #### [facility] [address] [place], [address] EMERGENCY DEPARTMENT Observed: 05/11/2018 Status: F Source: TRIVOLI SUMMARY 4:46 AM [facility] REPOSITORY [facility] Medical Records Department [address] [place] [address] Emergency Department Summary 05/11/18 0444 MR#: [id number] Acct: [id number] Name: EMELYN WOLF Rep #: [id number] : 1950 67 From: Jose Luis Melara PCP: Ebenezer Vann DO Status: ADM GUILLERMINA - ER Visit Summary Date of Service: 05/11/18 Chief Complaint: Chest pain History of Present Illness: The patient is a 67 F intermittent chest pain left side rating to bilateral shoulders for the past 2 days. Symptoms return 1030 yesterday evening were swelling down. No cough. No dyspnea, nausea, diaphoresis. States in her chest is pressure however sharp pains in her shoulders. Similar symptoms when she had up with one stent in 2007. States her last stress test was a year ago. Followed by Dr. Gonzalez. Denies history of diabetes. No recent travel, surgeries, or immobilizations. No history of PE or DVT. Brother had PA at age of 50. No tobacco history. She did take a nitro which seemingly helped her symptoms symptoms are very mild currently. Physical Examination: General: Alert and oriented 3, no acute distress HEENT: Normocephalic, atraumatic. Moist mucosa membranes Neck: supple, nontender. Cardiovascular: Regular rate and rhythm, no murmurs Respiratory: Normal breath sounds, symmetric, no distress Abdomen: Soft, nontender, nondistended Extremities: Nontender, no edema, pulses intact 4 Neuro: no focal neurological deficits. Test Results: EKG sinus rate of [address] or T-wave changes. Troponin negative. CBC, BMP normal. Chest x-ray negative. Emergency Department Course and Treatment: Patient currently much more improved, due to improving symptoms nitro nitro paste was placed. Aspirin given. Cardiac workup initiated was normal. She is symptom-free on reevaluation. AMANDA scores of 4, heart scores of 5. Discuss with hospitalist Dr. Saxena for admission. Treatment Plan: [] Disposition: Admission Impression: Acute chest pain This note was generated with Hatchbuckation software. It may contain incorrect words, spelling, and punctuation that were not noted in review of the chart prior to signing ED Disposition - Plan for ED Patient: Disposition: Acute Care Hospital [facility] Chief Complaint: Chest Pain Diagnosis: Chest pain What to do if you have Problems For any increased pain, shortness of breath, bleeding, nausea or vomiting, chest pain, or any unexpected problems, contact your Primary Care Provider. Call [facility] ([phone]) or report to the closest Emergency Room. Call 911 if necessary. 05/11/18 0446 <Electronically signed by Jose Luis Melara> Date Jose Luis Melara Cosigner Signature (If Indicated): Date CC: Ebenezer Vann DO CBC-COMPLETE BLOOD CNT Collected: 05/11/2018 Status: F Source: TRIVOLI NO DIFF 4:46 AM [facility] REPOSITORY TYPE CODE TESTS RESULT OUT OF RANGE REFERENCE UNITS LAB L100.1000 4.4-11.0 K/mm3 Normal WBC 9.0 LAB L100.1200 4.2-5.4 M/mm3 Low RBC 3.88 LAB L100.1300 12.0-15.0 g/dl Low HGB 11.9 LAB L100.1400 37-47 % Normal HCT 37.1 LAB L100.1500 81-99 fL Normal MCV 95.6 LAB L100.1600 27.0-32.0 pg Normal MCH 30.7 LAB L100.1700 32-36 g/gl Normal MCHC 32.1 LAB L100.1810 11.6-14.6 % Normal RDW CV 13.4 LAB L100.1820 35.1-43.9 fl High RDW SD 45.0 LAB L100.1900 150-450 K/mm3 Normal PLT 305 LAB L100.2000 6.2-12.0 fl Normal MPV 10.0 Performed By: #### L100.0500 #### [facility] [address] [place], [address] TROPONIN-I Collected: 05/11/2018 Status: F Source: TRIVOLI 4:46 AM [facility] REPOSITORY Order Comment: 'TROP' Serial specimen #1, #2 or #3: 2 TYPE CODE TESTS RESULT OUT OF RANGE REFERENCE UNITS LAB L501.4010 <0.045 ng/mL Normal < 0.015 TROPONIN-I Result Comment: TROPONIN-I EXPECTED VALUES <0.045 Negative 0.045 - 0.590 Consistent with Cardiac Damage > OR = 0.600 Critical Value Not every elevated troponin is indicative of PA. These values should be used with clinical judgement in examining the patient's clinical picture for diagnosis. To establish a diagnosis of PA versus myocardial injury, there must be a demonstrated rise and/or fall in the troponin values, in addition to ischemic symptoms, EKG changes, new regional wall motion abnormality, and/or angiographical evidence. PLEASE NOTE: REFERENCE RANGES EDITED 18 Performed By: #### L501.4010 #### [facility] [place], [address] MAGNESIUM Collected: 05/11/2018 Status: F Source: TRIVOLI 4:46 AM [facility] REPOSITORY TYPE CODE TESTS RESULT OUT OF RANGE REFERENCE UNITS LAB L501.5200 1.6-2.6 mg/dL Normal MG 2.2 Performed By: #### L501.5200 #### [facility] [place], [address] PROTHROMBIN TIME W/INR Collected: 05/11/2018 Status: F Source: TRIVOLI 4:46 AM [facility] REPOSITORY TYPE CODE TESTS RESULT OUT OF RANGE REFERENCE UNITS LAB L300.4150 11.7-14.9 SECONDS Normal PROTIME 11.9 LAB L300.4200 Normal INR 0.9 Performed By: #### L300.3900, L300.4310 #### [facility] [address] [place], [address] PARTIAL THROMBOPLAST Collected: 05/11/2018 Status: F Source: TRIVOLI TIME 4:46 AM [facility] REPOSITORY TYPE CODE TESTS RESULT OUT OF RANGE REFERENCE UNITS LAB L300.4310 24.1-36.2 Seconds Normal PTT 25.9 Performed By: #### L300.3900, L300.4310 #### [facility] [address] [place], [address] COMPREHENSIVE METABOLIC Collected: 05/11/2018 Status: F Source: RAJENDRA [facility] 4:46 AM [facility] REPOSITORY TYPE CODE TESTS RESULT OUT OF RANGE REFERENCE UNITS LAB L501.0100 74-106 mg/dL Normal GLU 86 Result Comment: Please note revised GLUCOSE reference range effective 2017. LAB L501.1000 7-18 mg/dL High BUN 19 LAB L501.1100 0.55-1.02 mg/dL Normal CREAT,SERUM 0.82 Result Comment: The validity of the calculated GFR AND GFRAA in patients over 70 years has not been determined. Clinical correlation is essential. LAB L501.1110 >60 mL/min Normal EST GFR 73 Result Comment: Non- GFR Calc LAB L501.1115 >60 mL/min Normal EST GFR - AA 89 Result Comment: GFR Calc LAB L501.1255 ml/min Normal Estimated CRCL 61.47 LAB L501.1300 10-20 RATIO High BUN/CRE 23.1 LAB L501.1500 6.4-8. g/dL Normal 2 T PROT 6.6 LAB L501.1800 3.2-5. g/dL Normal 0 ALB 3.2 LAB L501.1950 2.2-4. g/dL Normal 2 GLOB 3.4 LAB L501.2000 0.9-2. RATIO Normal 4 A/G 0.9 LAB L501.2200 8.5-10 mg/dL Normal .1 CA 8.7 LAB L501.4100 15-37 U/L Low AST 14 LAB L501.4305 45-117 U/L Normal ALK P 65 LAB L501.4405 13-56 U/L Normal ALT 27 LAB L501.4600 0.20-1 mg/dL Normal .00 T BILI 0.20 LAB L501.5300 136-14 mmol/L Normal 5 NA 143 LAB L501.5600 3.5-5. mmol/L Normal 1 K 4.1 LAB L501.5900 98-107 mmol/L Normal CL 106 LAB L501.6100 21.0-3 mmol/L Normal 2.0 CO2 30.0 LAB L501.6200 5-15 Normal GAP 7 Performed By: #### L500.4050, L500.4100 #### [facility] [address] [place], [address] LIPID PROFILE Collected: 05/11/2018 Status: F Source: TRIVOLI 4:46 AM [facility] REPOSITORY TYPE CODE TESTS RESULT OUT OF RANGE REFERENCE UNITS LAB L501.4900 200 mg/dL High CHOL 255 Result Comment: <200 mg/dL Desirable 200-240 mg/dL Borderline >240 mg/dL High Risk LAB L501.5000 mg/dL Normal TRIG 87 Result Comment: The drugs N-Acetylcysteine and Metamizole may falsely depress this assay. Serum Triglycerides Reference Interval Normal <150 mg/dL Borderline high 150 - 199 mg/dL High 200 - 499 mg/dL Very High > or = 500 mg/dL LAB L501.6400 mg/dL Normal HDL 76 Result Comment: The drugs N-Acetylcysteine and Metamizole may falsely depress this assay. Reference Range HDL <40 mg/dL Low HDL Cholesterol HDL >or= 60 mg/dL High HDL Cholesterol LAB L501.6500 0-130 mg/dL High LDL 162 LAB L501.6600 5-40 mg/dL Normal VLDL 17 Performed By: #### L500.4050, L500.4100 #### [facility] [address] [place], [address] HISTORY AND PHYSICAL Observed: 05/11/2018 Status: F Source: TRIVOLI EXAM 3:37 AM [facility] REPOSITORY [facility] Medical Records Department [address] [place] [address] History and Physical 05/11/18 0307 MR#: [id number] Acct: [id number] Name: EMELYN WOLF Rep #: [id number] : 1950 67 From: Mamta Saxena PCP: Ebenezer Vann DO Status: DEP ER Y Location: ED Problem List (1) Chest pain Status: Acute Qualifiers: Chest pain type: unspecified Qualified Code(s): R07.9 - Chest pain, unspecified (2) Hyperlipidemia Status: Chronic Qualifiers: Hyperlipidemia type: pure hypercholesterolemia Qualified Code(s): E78.00 - Pure hypercholesterolemia, unspecified; E78.0 - Pure hypercholesterolemia (3) Hypothyroidism (acquired) Status: Chronic (4) Obstructive sleep apnea Status: Chronic (5) Polymyalgia rheumatica Status: Chronic (6) History of GI bleed Status: Chronic (7) CAD S/P percutaneous coronary angioplasty Status: Chronic Comment: 2007 History of Present Illness Date of Admission: 05/11/18 Chief Complaint: Chest pain The patient is a 67 y/o F w/ PMHx: Hx GI Bleed, HLD, Hypothyroidism, RUBEN, CAD s/p PCI 12/2007, PAF s/p ablation , Anxiety and Depression, Obesity who presents to the [facility] ED on 05/11/18 with history of onset malaise, fatigue, mild lightheadedness and palpitations following her pool therapy on Monday with following ongoing general fatigue and malaise sensation with onset the evening prior to ED presentation left sided chest pressure, discomfort, rated 5/10 with radiation toward the back and sensation of stabbing sharp discomfort concurrently in the back on the left side with no associated dyspnea, diaphoresis, nausea or emesis prompting ED presentation. Following interventions in the ED patient rated pain 0/10. In the ED work-up included T 97.5, heart rate 67, BP 157/69--> 31/63, respiratory rate 16, 97% room air, CBC unremarkable, BMP unremarkable, troponin less than 0.015, chest x-ray with no acute findings, EKG with sinus rhythm with no acute evidence of ischemia. In the ED patient administered aspirin and Nitro-Bid 1 inch 1. Past Medical History Past Medical History (Chronic Problems): Chronic Problems (Last Reviewed 03/14/18 @ 13:19 by Ann Miramontes) Hyperlipidemia (Chronic) Supraventricular tachycardia (Chronic) Postsurgical percutaneous transluminal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 pain for about 16 years when she had an accident on a 4 rose. Patient complains of pain over her lumbar spine 99% and a burning pain into her left greater trochanteric region/buttock at night when she is laying on it. She denies pain distal to the buttock/upper hip region. Patient has increased pain with lifting or standing. Her pain improves with rest and heating pad. She denies start up pain or leg fatigue. Patient had chronic prednisone 3mg daily use for polymyalgia rheumatica. She denies bowel or bladder issues, gait instability or difficulty with hand dexterity. Patient has seen Dr Lozano for a few injections which are helpful for 3-6 months. No records available for injections. Patient denies any physical therapy. She notes that she has had bilateral hip replacements in 2014 which was not helpful with her back pain. She denies constitutional symptoms. She has chronic neck pain. She denies radicular arm pain. She takes tramadol. She has had cardiac stents and is on plavix. She has hypothyroidism. She does not smoke. ROS Const Reports system reviewed and no additional complaints, except as docu Eyes Reports system reviewed and no additional complaints, except as docu ENT Reports system reviewed and no additional complaints, except as docu Card Reports system reviewed and no additional complaints, except as docu Resp Reports system reviewed and no additional complaints, except as docu GI Reports system reviewed and no additional complaints, except as docu Reports system reviewed and no additional complaints, except as docu Musc Reports back pain, Reports radiating pain into limb Skin/Breast Reports system reviewed and no additional complaints, except as docu Neuro Yes system reviewed and no additional complaints, except as docu Psych Reports system reviewed and no additional complaints, except as docu Endo Reports system reviewed and no additional complaints, except as docu Ortho Exam Spine Neuro: Yes Clonus (none bilaterally), Spurling's (negative bilaterally), Bender's (negative bilaterally), Babinski (downgoing bilaterally) and Straight Leg Raise (negative bialterally) General: alert, oriented x3 Skin: Yes dysraphism (none) Capillary Refill <2sec: Yes Palpable Pulses: 2+ dp/pt pulses Gait: normal gait, other (heel and toe walk intact. normal tandem gait) Motor: strength 5/5 throughout Sensory Exam: no sensory deficits noted DTR's: Rt Triceps: 2+, Lt Triceps: 2+, Rt Biceps: 2+, Lt Biceps: 2+, Rt Brachioradialis: 2+, Lt Brachioradialis: 2+, Rt Patellar: 2+, Lt Patellar: 2+, Rt Ankle: 2+, Lt Ankle: 2+ Plantar Reflexes: Downgoing: bilateral Coordination: Romberg test normal, tandem gait normal SPINE TESTING CERVICAL THORACIC LUMBAR SLR: Negative Musculoskeletal General: Yes normal gait and normal posture Cervical Spine: normal cervical lordosis, cervical muscular tenderness, cervical ROM normal Thoracic/Lumbar Spine: pain with thoraco-lumbar ROM, paraspinal tenderness, straight leg raise negative bilaterally, thoraco-lumbar ROM limited Strength 0=absent - 5=normal Deltoid R (C5): 5, Deltoid L (C5): 5, R Bicep (C5-6): 5, L Bicep (C5-6): 5, R Wrist Extensor (C6): 5, L Wrist Extensor (C6): 5, R Tricep (C7): 5, L Tricep (C7): 5, R Finger Flexors (C8): 5, L Finger Flexors (C8): 5, R First Dorsal Interossei (C8): 5, L First Dorsal Interossei (C8): 5, R Hip Flexor (L1-3): 5, L Hip Flexor (L1-3): 5, R Quadriceps (L2-4): 5, L Quadriceps (L2-4): 5, R Anterior Tibialis (L4-5): 5, L Anterior Tibialis (L4- 5): 5, R Hamstrings (L5-S1): 5, L Hamstrings (L5-S1): 5, GS (S1): 5, L GS (S1): 5, R Peroneals (S1): 5, L Peroneals (S1): 5 Details: tenderness over the left greater trochanteric region and IT band Assessment AND Plan 1. Chronic bilateral low back pain without sciatica M54.5; G89.29 Plan Imaging: XR lumbar spine 04/03/2018 reveals diffuse spondylosis with coronal asymmetry. L3-L4, L4-L5 anterolisthesis without instability with flexion and extension MRI lumbar spine 01/03/2018 reveals diffuse spondylosis with L3-L4 bilateral lateral recess stenosis with spondylolisthesis, L4-5 spondylolisthesis. moderate stenosis at L3-L4. Compared to 2009, minimal change. DEXA 10/10/2017 L spine T 0.3, forearm T -0.8 I/R/P: 1. back pain 2. left greater trochanteric bursitis 3. cardiac stent on plavix 4. polymyalgia rheumatica on chronic prednisone 5. history of GI bleed Ms. Wolf presents with back pain secondary to spondylosis. She has no symptoms of neurogenic claudication or start up pain. The natural history and course of the symptomatology of back pain and trochanteric bursitis was discussed in detail with the patient. I answered all questions regarding the mode of onset, pathophysiology, symptoms, imaging findings, treatment options regarding her diagnosis. Recommend physical therapy and aqua therapy. Follow up as needed. Plan of care discussed. All questions answered. The patient verbalized understanding of the disease process and agreed to the treatment plan formulated for this visit. Coding Level of Care Code Off vis,new,level 4 Diagnoses Chronic bilateral low back pain without sciatica M54.5; G89.29 Chronicity: chronic Back pain laterality: bilateral Sciatica presence: without sciatica 04/14/18 0939 <Electronically signed by Saadia Gold MD> Date Saadia Gold MD Cosigner Signature: Date (if applicable) CC: Ebenezer Vann DO L/S SPINE MIN 4 Observed: 04/03/2018 Status: F Source: TRIVOLI VIEWS 9:04 AM [facility] REPOSITORY [facility] Imaging Services [address] [place] [id number] L/S Spine Min 4 Views MR#: [id number] Acct: [id number] Name: EMELYN WOLF Rep #: [id number] : 1950 F 67 From: Derrick Lewis DO PCP: Ebenezer Vann DO Status: REG CLI Study: L/S Spine Min 4 Views Date of Exam: 04/03/18 Exam# [id number] Ordering Dr: Saadia Gold MD STUDY: X-RAY - LUMBAR SPINE REASON FOR EXAM: Female, 67 years old. Low back pain TECHNIQUE: 4 view(s) of the lumbar spine were obtained. With flexion and extension COMPARISON: None FINDINGS: Normal lumbar lordosis. There is no substantial scoliosis. Grade 1 anterolisthesis of L4 on L5. There is multilevel endplate spondylosis of the lumbar vertebrae. There is multi-level degenerative disc disease with multi-level disc space narrowing. There is no demonstrated fracture. There is atherosclerotic calcification of the abdominal aorta without a demonstrated aneurysm. RAD/L/S Spine Min 4 Views IMPRESSION: Degenerative changes of the spine, as detailed above. Electronically Signed: Derrick DO Debbie at 11:28 EDT Tel , Service support , CC: Saadia Gold MD; Ebenezer Vann DO Project Manager Interior Design: Signed URGENT CARE VISIT Observed: 03/14/2018 Status: F Source: TRIVOLI REPORT 1:37 PM [facility] REPOSITORY [facility] [address] [place] [address] [address] [place] [address] OFFICE VISIT Date of Service: 03/14/18 MR#: [id number] Acct: [id number] Name: EMELYN WOLF Rep #: [id number] : 1950 Provider: Brant POPE Age/Sex: 67/F Location[place] [facility] Status: Signed Intake Vital Signs03/14/18 Height 5 ft 5 in 03/14/18 Weight: 187 lb 03/14/18 Body Mass Index (BMI) 31.1 03/14/18 Blood Pressure 116/72 Intake Visit Reasons: laceration Certified Endoscopy Technician Required: No Is patient in pain?: No Allergies duloxetine [From Cymbalta] Allergy (Mild, Verified 03/14/18 13:01) chest pain adhesive tape Allergy (Verified 03/14/18 13:01) Rash pravastatin [From Pravachol] Allergy (Verified 03/14/18 13:01) MUSCLE PAIN cyclobenzaprine [From Flexeril] Adverse Reaction (Verified 03/14/18 13:01) EXTREME WEAKNESS NSAIDS (Non-Steroidal Anti-Inflamma Adverse Reaction (Verified 03/14/18 13:01) GI BLEED Medications Aspirin [Adult Low Dose Aspirin EC] 81 mg PO QHS 05/31/16 [History Confirmed 03/14/18] Calcium Carbonate/Vitamin D3 [Calcium 600-Vit D3 200 Tablet] 1 ea PO BID 05/31/16 [History Confirmed 03/14/18] Cetirizine HCl [Zyrtec] 10 mg PO QODAY 05/31/16 [History Confirmed 03/14/18] Fluticasone 0.05% [Flonase Nasal [place]] 1 spray NASAL QHS 05/31/16 [History Confirmed 03/14/18] L.acidoph,Paracasei, B.lactis [Probiotic] 1 ea PO TID 05/31/16 [History Confirmed 03/14/18] Levothyroxine [Synthroid] 125 mcg PO DAILY 05/31/16 [History Confirmed 03/14/18] Metoprolol(XL)Succ [Toprol Xl (Beta Ashli)] 25 mg PO DAILY 05/31/16 [History Confirmed 03/14/18] Omeprazole [Prilosec] 40 mg PO DAILY 05/31/16 [History Confirmed 03/14/18] Venlafaxine HCl [Effexor] 37.5 mg PO QHS 05/31/16 [History Confirmed 03/14/18] traMADol [Ultram] 50 mg PO 4X/DAY 05/31/16 [History Confirmed 03/14/18] clopidogrel 75 mg tablet 75 mg PO QDAY #90 tab 01/18/18 [Rx Confirmed 03/14/18] prednisone 1 mg tablet 3 mg PO DAILY tab 02/23/18 [History Confirmed 03/14/18] [facility] Medical History GI bleed (Acute) History of blood transfusion (Acute) Myofascitis (Acute) Hyperlipidemia (Chronic) Hypothyroidism (Chronic) Sleep apnea (Chronic) Thoracic spondylosis (Chronic) Status post bilateral knee replacements (Inactive) Surgical History H/O angioplasty (Inactive) S/P bilateral hip replacements (Inactive) S/P hernia repair (Inactive) Status post carpal tunnel release (Inactive) heart ablation (Inactive) menicus repair (Inactive) wound debridement (Inactive) Family History Other Heart disease 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 Patient states that she was using a mandolin slicer and sliced the tip of her left fourth digit. Patient is currently taking Plavix and states that the wound would not stop bleeding which is why she is here. She denies numbness or tingling. She is unaware of her last tetanus update. No other associated symptoms or alleviating/aggravating factors. ROS Const Constitutional: No chills, fever(s), abnormal sleep pattern or fatigue Resp Respiratory: No shortness of breath or chest congestion Cardio Cardiology: No chest pain at rest, chest pain with exertion or shortness of breath Skin Skin: Positive for wounds (Left fourth digit laceration); no lesions Neuro Neurology: No behavioral changes or confusion Psych Psychiatric: No behavioral changes, No confusion, No abnormal sleep pattern Endo Endocrine: No fatigue Exam Const General: cooperative, healthy appearing Resp Effort AND Inspection: normal respiratory effort Auscultation: Bilateral: Clear to Auscultation Cardio Palpation: normal PMI Rate: regular rate Rhythm: regular rhythm Skin Other: Small avulsion to the tip of the left fourth finger with no bone, tendons or nerves exposed. Bleeding has stopped sufficiently at time of exam. Area cleansed with Hibiclens and examined then dressed with bacitracin, nonadherent dressing and gauze. Patient advised of appropriate wound care. Patient tolerated without complication. Neuro General: alert, CN's II-XI intact bilaterally Psych Appearance: grossly normal Mental Status: mental status grossly normal Immunizations Boostrix Tdap Performing Provider: NIKO Mendenhall Administered by: Ann Miramontes on 03/14/18 13:20 Dose Route Admin Location Lot Number Expiration Date NDC Phlebotomy Program Coordinator 0.5 mL IM Left Deltoid [id number] 02/29/20 [id number] [employer] VIS Given Date VIS Publication Date 03/14/18 03/14/18 Eligibility Eligibility Date Assessment AND Plan Problems 1. Avulsion of skin of finger without complication, initial encounter S61.209A Status Acute Plan See skin exam. Encouraged to use Tylenol or Ibuprofen (unless contraindicated) for comfort. Patient also educated on other symptomatic management techniques. To be seen in 7-10 days with PCP if no improvement; sooner if worsening of symptoms. Patient advised of potential red flags when appropriate report to the ED. Patient verbalized understanding of all the above. This note was generated with [employer] dictation software. It may contain incorrect words, spelling, and punctuation that were not noted in checking the note before signing. Orders Orders: Medications Discontinued: Boostrix Tdap (diphth,pertus(acell),tetanus) Discont0.5 mL IM ONCE NS Z23 Ann Hayley Miramontes inued Reason: Office Medication has been Documented as given Coding Level of Care Code Off vis,est,level 3 Diagnoses Avulsion of skin of finger without complication, initial encounter S61.209A Encounter type: initial encounter 03/14/18 1337 <Electronically signed by Brant POPE> Date Brant POPE Cosigner Signature: Date (if applicable) CC: BASIC METABOLIC Collected: 03/12/2018 Status: F Source: RAJENDRA PROFILE ([facility]) 10:25 AM [facility] REPOSITORY TYPE CODE TESTS RESULT OUT OF RANGE REFERENCE UNITS LAB L501.0100 74-106 mg/dL Normal GLU 80 Result Comment: Please note revised GLUCOSE reference range effective 2017. LAB L501.1000 7-18 mg/dL Normal BUN 18 LAB L501.1100 0.55-1.02 mg/dL Normal CREAT,SERUM 0.88 Result Comment: The validity of the calculated GFR AND GFRAA in patients over 70 years has not been determined. Clinical correlation is essential. LAB L501.1110 >60 mL/min Normal EST GFR 68 Result Comment: Non- GFR Calc LAB L501.1115 >60 mL/min Normal EST GFR - AA 82 Result Comment: GFR Calc LAB L501.1300 10-20 RATIO High BUN/CRE 20.5 LAB L501.2200 8.5-10.1 mg/dL CA Normal 8.9 LAB L501.5300 136-145 mmol/L NA Normal 142 LAB L501.5600 3.5-5.1 mmol/L K Normal 4.0 LAB L501.5900 98-107 mmol/L CL Normal 106 LAB L501.6100 21.0-32.0 mmol/L Normal CO2 30.0 LAB L501.6200 5-15 Normal GAP 6 Performed By: #### L500.2500, L501.9520, L506.0400 #### [facility] [address] [place], [address] THYROID STIM HORMONE Collected: 03/12/2018 Status: F Source: RAJENDRA ([facility]) 10:25 AM [facility] REPOSITORY TYPE CODE TESTS RESULT OUT OF RANGE REFERENCE UNITS LAB L501.9520 0.358-3.74 uIU/mL Normal TSH 3.37 Performed By: #### L500.2500, L501.9520, L506.0400 #### [facility] [address] [place], [address] T4 FREE DIRECT Collected: 03/12/2018 Status: F Source: RAJENDRA 10:25 AM [facility] REPOSITORY TYPE CODE TESTS RESULT OUT OF RANGE REFERENCE UNITS LAB L506.0400 0.76-1.46 ng/dL Normal T4 FREE 1.10 DIRECT Performed By: #### L500.2500, L501.9520, L506.0400 #### [facility] [address] [place], [address] CARDIOLOGY VISIT Observed: 02/23/2018 Status: F Source: RAJENDRA REPORT 3:33 PM [facility] REPOSITORY [facility] [address] [place] [address] OFFICE VISIT Date of Service: 02/23/18 MR#: [id number] Acct: [id number] Name: EMELYN WOLF Rep #: [id number] : 1950 Provider: Sunny Gonzalez MD Age/Sex: 67/F Location[place] [facility] Status: Signed [facility] Chief Complaint: Follow-up visit. Details: EMELYN WOLF, is a 67 F who presents to the office today for a follow-up visit. She is a lady with a history of coronary disease status post angioplasty and stenting of the left anterior descending artery in 2007. She has undergone repeat cardiac catheterization which have demonstrated previously patent stents. She did have an episode of chest discomfort in December 2015 underwent a stress test where she exercised to a workload of 10.1 metabolic equivalents. No evidence of ischemia was noted and excellent functional capacity was recorded. She has had no neck arm or jaw discomfort suggest angina no dizziness or diaphoresis no near syncope or syncope. Her blood pressure has been under excellent control. Her physical exam demonstrates clear lung melendez regular rate and rhythm and no pedal edema. You do know that she has not been able to tolerate the statins. Because of a combination of arthritis and polymyalgia rheumatica. Intake Vital Signs02/23/18 Height 5 ft 5.5 in 02/23/18 Weight: 187 lb 02/23/18 Body Mass Index (BMI) 30.6 02/23/18 Blood Pressure 124/60 Intake Visit Reasons: 6 M FU Accompanied by: Is patient in pain?: No Allergies duloxetine [From Cymbalta] Allergy (Mild, Verified 02/23/18 14:46) chest pain adhesive tape Allergy (Verified 02/23/18 14:46) Rash pravastatin [From Pravachol] Allergy (Verified 02/23/18 14:46) MUSCLE PAIN cyclobenzaprine [From Flexeril] Adverse Reaction (Verified 02/23/18 14:46) EXTREME WEAKNESS NSAIDS (Non-Steroidal Anti-Inflamma Adverse Reaction (Verified 02/23/18 14:46) GI BLEED Medications Aspirin [Adult Low Dose Aspirin EC] 81 mg PO QHS 05/31/16 [History Confirmed 02/23/18] Calcium Carbonate/Vitamin D3 [Calcium 600-Vit D3 200 Tablet] 1 ea PO BID 05/31/16 [History Confirmed 02/23/18] Cetirizine HCl [Zyrtec] 10 mg PO QODAY 05/31/16 [History Confirmed 02/23/18] Fluticasone 0.05% [Flonase Nasal [place]] 1 spray NASAL QHS 05/31/16 [History Confirmed 02/23/18] L.acidoph,Paracasei, B.lactis [Probiotic] 1 ea PO TID 05/31/16 [History Confirmed 02/23/18] Levothyroxine [Synthroid] 125 mcg PO DAILY 05/31/16 [History Confirmed 02/23/18] Metoprolol(XL)Succ [Toprol Xl (Beta Ashli)] 25 mg PO DAILY 05/31/16 [History Confirmed 02/23/18] Omeprazole [Prilosec] 40 mg PO DAILY 05/31/16 [History Confirmed 02/23/18] Venlafaxine HCl [Effexor] 37.5 mg PO QHS 05/31/16 [History Confirmed 02/23/18] traMADol [Ultram] 50 mg PO 4X/DAY 05/31/16 [History Confirmed 02/23/18] clopidogrel 75 mg tablet 75 mg PO QDAY #90 tab 01/18/18 [Rx Confirmed 02/23/18] prednisone 1 mg tablet 3 mg PO DAILY tab 02/23/18 [History Confirmed 02/23/18] [facility] Medical History GI bleed (Acute) History of blood transfusion (Acute) Myofascitis (Acute) Hyperlipidemia (Chronic) Hypothyroidism (Chronic) Sleep apnea (Chronic) Thoracic spondylosis (Chronic) Status post bilateral knee replacements (Inactive) Surgical History H/O angioplasty (Inactive) S/P bilateral hip replacements (Inactive) S/P hernia repair (Inactive) Status post carpal tunnel release (Inactive) heart ablation (Inactive) menicus repair (Inactive) wound debridement (Inactive) Family History Other Heart disease 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 Smoking Status: Never smoker alcohol intake: never ROS Const Const: Negative for fatigue, weakness, body ache, fever(s), headache(s), chills, frequent falls, night sweats, daytime sleepiness, difficulty sleeping, excessive sweating, weight gain, weight loss, increased appetite, poor appetite, anorexia or other Eyes Eyes: Negative for blind spots, loss of peripheral vision, transient loss of vision, blurry vision, change in vision, double vision, floaters, tunnel vision or other ENT ENT: Negative for headache(s), dizziness, hearing loss, tinnitus, Nosebleed/epistaxis, balance problems, post nasal drip, lip swelling, tongue swelling, bleeding gums, hoarseness, neck pain, dry mouth or other Cardio Chest Pain: No Palpitations: No Edema: None Muscle aches with walking: None Resp Respiratory: Negative for SOB with activity, SOB at rest, SOB orthopnea\SOB lying down, Coughing up blood/hemoptysis, chest congestion, pain on inspiration, snoring, stridor, wheezing, crackles, paroxysmal nocturnal dyspnea or other GI GI: Negative nausea, vomiting, heartburn, constipation, belching, bloating, cramping, vomiting blood/hematemesis, bright, red blood in stools, black,tarry stools, loose stools, Difficulty Swallowing or other : Negative for hematuria, frequent nighttime urination/ nocturia, erectile dysfunction or abnormal vaginal bleeding Musc Musc: Negative for balance problems, muscle aches/ myalgia, muscle weakness or joint pain Skin Skin: Negative redness, non-healing lesions, rash, unusual bruising, skin ulcer, wounds, jaundice or other Neuro Neuro: Negative for weakness, headache(s), frequent falls, blurry vision, double vision, dizziness, lightheadedness, near syncope, syncope, orthostatic symptoms, confusion, memory loss, restless legs, vertigo, seizures, lack of coordination or other Favio Hematologic/Lymphatic: Negative for easy bleeding, easy bruising, enlarged lymph nodes or other Endo Endo: Negative for fatigue, excessive sweating, cold intolerance, heat intolerance, flushing, increased thirst/drinking, increased hunger, hair loss, hair growth or other Psych Psych: Negative for anxiety, depression, thoughts of harming anyone, thoughts of harming yourself, visual hallucinations, panic attacks or audible hallucinations Allergy Allergy/Immunology: Negative for lip swelling, Negative for tongue swelling, Negative for rash, Negative for throat swelling, Negative for hives Cardiology Exam Const Appearance: cooperative, healthy appearing, well developed, well groomed and no acute distress Nutritional Appearance: well nourished and average body habitus Orientation: alert, awake and oriented x3 Head Head: normal to inspection, normocephalic and atraumatic Ears: hearing grossly normal bilaterally and external ears normal Nose: external nose normal, nasal mucous membranes and turbinates normal, nares normal, septum normal, no nasal discharge Face and Sinus: face symmetric Mouth: oral mucosae normal, tongue normal, oropharynx normal and moist mucous membranes Teeth and gingiva: dentition normal Throat: posterior oropharynx normal, tonsils normal and uvula midline Eyes General: appearance normal, both eyes and all related structures Eyelids: eyelids normal Conjunctivae: conjunctivae normal Pupils: PERRL, normal by confrontation and accommodation normal EOM: EOM intact bilaterally Neck Neck: normal visual inspection, trachea midline and no JVD JVD: +5 Carotids: normal carotid upstroke and bounding pulses Chest Chest inspection: normal inspection of the chest, symmetric chest movement and normal respiratory effort Auscultation: Bilateral: Clear to Auscultation Cardio Palpation: normal PMI Rate: regular rate Rhythm: regular rhythm Heart sounds: S1 normal, S2 normal and normal, physiologic split S2; negative rub, gallop or murmur GI GI: normal to inspection, soft, no hepatosplenomegaly and bowel sounds present Neuro General: alert, awake, oriented x3, no focal sensory deficit, gait normal and moves all extremities Skin Skin: no rashes or lesions noted Extremities Pulses: Normal: Right Femoral Pulse, Left Femoral Pulse, Right Dorsalis Pedis Pulse, Left Dorsalis Pedis Pulse, Right Posterior Tibial Pulse, Left Posterior Tibial Pulse, Right Radial Pulse, Left Radial Pulse Lower Extremity Edema: None: Bilateral Musculoskel Musculoskeletal: No joint tenderness Psych Psychological: normal affect Assessment AND Plan 1. Postsurgical percutaneous transluminal coronary angioplasty (PTCA) status Z98.61 12/14/07 PTCA/stent (OMAR) to LAD Plan She is status post angioplasty and stenting of the left anterior descending artery. She has had repeated stress test which have been normal and at this time my recommendation was for us to continue with aggressive risk factor modification and medical therapy she appears to be doing much better with this. 2. Hyperlipidemia E78.5 Plan She as you know has not been able to tolerate the statins. She continues with dietary manipulation and her last lipid profile was 254 with an HDL of 71 and LDL of 166. Mediterranean diet has been encouraged except for today when she is cooking for her son-in-law. Thank you for allowing me to participate in the care of your patient. 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) Coding Level of Care Code Off vis,est,level 3 Diagnoses Postsurgical percutaneous transluminal coronary angioplasty (PTCA) status Z98.61 Hyperlipidemia E78.5 Coding Level of Care Code Off vis,est,level 3 Diagnoses Postsurgical percutaneous transluminal coronary angioplasty (PTCA) status Z98.61 Hyperlipidemia E78.5 02/23/18 1963 <Electronically signed by Sunny Gonzalez MD> Date Sunny Dunham Signature: Date (if applicable) CC: Ebenezer Vann DO SPINE LUMBAR Observed: 01/03/2018 Status: F Source: RAJENDRA (ROUTINE) 5:27 PM [facility] REPOSITORY [facility] Imaging Services [address] [place] [address] Spine Lumbar (Routine) MR#: [id number] Acct: [id number] Name: EMELYN WOLF Rep #: [id number] : 1950 F 67 From: Daniel Chua MD PCP: Ebenezer Vann DO Status: REG CLI Study: Spine Lumbar (Routine) Date of Exam: 01/03/18 Exam# [id number] Ordering Dr: Ebenezer Vann DO STUDY: MRI LUMBAR SPINE WITHOUT CONTRAST REASON FOR EXAM: Female, 67 years old. Back pain TECHNIQUE: Standardized fat and water weighted pulse sequences were obtained in the sagittal and axial planes. COMPARISON: None FINDINGS: There is a mild first-degree spondylolisthesis of L3 over L4. No acute fractures. An old compression fracture involving the superior endplate of L4. Narrowing of the disc spaces in the lower thoracic spine and also at L5-S1 T12-L1: Normal endplates. Normal disc height, hydration and morphology. Normal bilateral facet joints. Normal central canal and bilateral lateral recesses. Normal bilateral intervertebral neural foramina. L1-2: Normal endplates. Normal disc height, hydration and morphology. Normal bilateral facet joints. Normal central canal and bilateral lateral recesses. Normal bilateral intervertebral neural foramina. L2-3: Normal endplates. Normal disc height, hydration and morphology. Facet arthrosis bilaterally but especially on the right side. Normal central canal and bilateral lateral recesses. Normal bilateral intervertebral neural foramina. L3-4: Mild spondylolisthesis of L3 over L4 with degenerative changes in the facet joints. Mild central canal stenosis. No focal disc protrusion or extrusion. L4-5: Normal endplates. Normal disc height, hydration and morphology. Facet arthrosis bilaterally.. Normal central canal and bilateral lateral recesses. Normal bilateral intervertebral neural foramina. L5-S1: Disc space narrowing with mild concentric disc bulging. No focal disc protrusion or extrusion and no central canal stenosis.. The aorta and kidneys are normal MRI/Spine Lumbar (Routine) IMPRESSION: A mild first-degree spondylolisthesis of L3 over L4. Mild and old compression fracture involving the superior endplate of L3 Intervertebral osteochondrosis involving T10-T11, T11-T12 and L5-S1. Facet arthrosis from L2-3 through L4-5. No central canal stenosis Electronically Signed: Daniel Chua, at 0:15 EDT Tel , Service support , CC: Ebenezer Vann DO Project Manager Interior Design: Signed PROGRESS Observed: 12/14/2017 Status: COMPLETED Source: [place] 9:53 AM [facility] OTHER CAMPUS REPOSITORY HNO ID: [id number] Author: SHADIA Norris (Ct) Service: (none) Author Type: Clinical Chief Radiologic Technologist Type: Progress Notes Filed: 12/14/2017 9:54 AM Note Text: NAME:Emelyn Wolf DATE: December 14, 2017 CCF#: [id number] Pelvis X-Ray and Lower Extremity X-Ray(s): Knee, AP / Lat / Merchant Bilateral and Wt. Bearing COMPLETED TECH ID SIGN: FABIOLA DALE PROGRESS Observed: 12/14/2017 Status: COMPLETED Source: [place] 9:43 AM [facility] [place] REPOSITORY HNO ID: [id number] Author: Martin Juarez (Pa) Service: (none) Author Type: Physician Field Education Director Type: Progress Notes Filed: 12/14/2017 9:49 AM Note Text: Ortho Hip Follow Up Note Narrative Referring Provider: SELF PCP: Ebenezer Vann, DO IMPRESSION/PLAN: Impressions indicate: 67 year old female s/p Left Total Hip Replacement completed on 05/13/15. IMPRESSION: At normal post-operative stage of recovery. and low back pain, sciatica and trochanteric bursitis left side PLAN: Continue current conservative treatment. Rest, Ice, Compression, Elevation PRN. Low back stretching Patient Reassurance: Normal post-operative course discussed with patient. Progress appears to be with the normal speed of recovery. Patient reassured and supported. All questions answered. Follow up 1 year X-Rays Needed ACTIVE PROBLEM LIST Hypothyroidism Mitral Valve Prolapse Diffuse Cystic Mastopathy Polymyalgia Rheumatica (Hcc) Hyperlipidemia OSTEOPENIA Sleep Apnea Myalgia and Myositis, Unspecified Dermatophytosis of Nail Vitamin D Deficiency Postmenopausal Atrophic Vaginitis Symptomatic Menopausal Or Female Climacteric States Papanicolaou Smear of Cervix With Atypical Squamous Cells of Undetermined Significance (Asc-Us) Uterovaginal Prolapse, Incomplete Cystocele, Midline Encounter for Long-Term (Current) Use of Steroids Pac (Premature Atrial Contraction) Ascvd (Arteriosclerotic Cardiovascular Disease) S/P Insertion of Non-Drug Eluting Coronary Artery Stent Upper GI Bleed Peptic Ulcer Thoracic Spondylosis Degenerative Disc Disease, Cervical HPI: Emelyn Wolf presents today for a senior living follow-up visit and with complaints of posterior left hip pain. She denies trauma and states she has difficulty ambulating long distances and finds she has to sit down at times for relief. Denies B/B issues STATUS POST: Right Total Hip Replacement and Left Total Hip Replacement BMI: Body mass index is 29.83 kg/(m2). Post operative recovery was complicated by uneventful/none. Patient rates his condition as worsening. Does the patient still experience pain? Onset: Ambulating lying on left side. Location: Left hip: Greater trochanter and buttocks. Frequency: intermittently and activity limiting. Pain scale: 6. Pain character: sharp and burning. Relieving factors: Rest, Ice and change of position. Aggravating factors: Walking long distances. Post Op discharge patient location: in home. Functional Assessment is as follows: completed course of therapy. Functional difficulties: Interferes with sleep. Pain Medication: None and is intolerant of NSAIDs due to H/O ulcer EXAM: POST OP HIP LEFT POST-OPERATIVE HIP SKIN: Appropriate postop appearance and Incision well healed. Range of Motion: passively pain free Neurovascular Status: Sensation Intact, Moves foot and ankle up AND down, 2+ dorsalis pedis and positive SLR at 90 with reproduction of pain IMAGING: X-ray Hips: Post op Implants are well fixed., There is no evidence of loosening. and There is evidence of osteo-integration. Provider: Martin Juarez PA-C Completed by: Martin Juarez PA-C CNOV Observed: 12/14/2017 Status: COMPLETED Source: [place] 9:00 AM [facility] REPOSITORY Office Visit (ORMDNA) EMELYN WOLF ([id number]) 1950 [address] [facility] Date Time Provider Department 12/14/17 9:00 AM MARTIN JUAREZ) ORMDEMIGDIO During your visit today, we recorded the following information about you: Pulse Blood pressure Weight Height 73/minute 135/66 83.8 kg 1.676 m Martin Juarez PA-C 12/14/2017 9:49 AM Signed Ortho Hip Follow Up Note Narrative Referring Provider: SELF PCP: Ebenezer Vann, DO IMPRESSION/PLAN: Impressions indicate: 67 year old female s/p Left Total Hip Replacement completed on 05/13/15. IMPRESSION: At normal post-operative stage of recovery. and low back pain, sciatica and trochanteric bursitis left side PLAN: Continue current conservative treatment. Rest, Ice, Compression, Elevation PRN. Low back stretching Patient Reassurance: Normal post-operative course discussed with patient. Progress appears to be with the normal speed of recovery. Patient reassured and supported. All questions answered. Follow up 1 year X-Rays Needed ACTIVE PROBLEM LIST Hypothyroidism Mitral Valve Prolapse Diffuse Cystic Mastopathy Polymyalgia Rheumatica (Hcc) Hyperlipidemia OSTEOPENIA Sleep Apnea Myalgia and Myositis, Unspecified Dermatophytosis of Nail Vitamin D Deficiency Postmenopausal Atrophic Vaginitis Symptomatic Menopausal Or Female Climacteric States Papanicolaou Smear of Cervix With Atypical Squamous Cells of Undetermined Significance (Asc-Us) Uterovaginal Prolapse, Incomplete Cystocele, Midline Encounter for Long-Term (Current) Use of Steroids Pac (Premature Atrial Contraction) Ascvd (Arteriosclerotic Cardiovascular Disease) S/P Insertion of Non-Drug Eluting Coronary Artery Stent Upper GI Bleed Peptic Ulcer Thoracic Spondylosis Degenerative Disc Disease, Cervical HPI: Emelyn Wolf presents today for a senior living follow-up visit and with complaints of posterior left hip pain. She denies trauma and states she has difficulty ambulating long distances and finds she has to sit down at times for relief. Denies B/B issues STATUS POST: Right Total Hip Replacement and Left Total Hip Replacement BMI: Body mass index is 29.83 kg/(m2). Post operative recovery was complicated by uneventful/none. Patient rates his condition as worsening. Does the patient still experience pain? Onset: Ambulating lying on left side. Location: Left hip: Greater trochanter and buttocks. Frequency: intermittently and activity limiting. Pain scale: 6. Pain character: sharp and burning. Relieving factors: Rest, Ice and change of position. Aggravating factors: Walking long distances. Post Op discharge patient location: in home. Functional Assessment is as follows: completed course of therapy. Functional difficulties: Interferes with sleep. Pain Medication: None and is intolerant of NSAIDs due to H/O ulcer EXAM: POST OP HIP LEFT POST-OPERATIVE HIP SKIN: Appropriate postop appearance and Incision well healed. Range of Motion: passively pain free Neurovascular Status: Sensation Intact, Moves foot and ankle up ANDamp; down, 2+ dorsalis pedis and positive SLR at 90 with reproduction of pain IMAGING: X-ray Hips: Post op Implants are well fixed., There is no evidence of loosening. and There is evidence of osteo-integration. Provider: Martin Juarez PA-C Completed by: Martin Juarez PA-C Referring Provider: SELF [[id number]] Allergies As of Date: 12/14/2017 Noted Allergy Reaction ADHESIVE TAPE (ROSINS) 01/17/2008 2 - Rash FLEXERIL (CYCLOBENZAPRINE HCL) 02/04/2010 5 - Intolerance Comments: snowed feeling PRAVACHOL (PRAVASTATIN SODIUM) 08/10/2005 17 - Myalgia Comments: muscle aching Date Reviewed: 12/14/2017 Reviewed by: Michelle Isbell Ma - Fully Assessed Reason for Visit: Left Hip Pain [1555] Cmt: on and off, worse for 3 months. Had x rays today Primary Visit Diagnosis:Status post bilateral hip replacements [Z96.643] Other Visit Diagnoses:Left-sided low back pain with left- sided sciatica, unspecified chronicity [M54.42] Trochanteric bursitis of left hip [M70.62] Prescriptions as of 12/14/2017 Sig: TEMAZEPAM 15 MG CAPSULE ESTRADIOL 1 MG TABLET Take 1 tablet by mouth once d* PROGESTERONE MICRONIZED 200 M* Take 1 capsule by mouth once * PREDNISONE 1 MG TABLET TAKE 4 TABLETS ONE TIME DAILY GUAIFENESIN ER 600 MG TABLET,* Take 2 tablets by mouth twice* VENLAFAXINE ER 37.5 MG CAPSUL* Take 1 capsule by mouth once * OMEPRAZOLE 40 MG CAPSULE,RONI* Take 1 capsule by mouth once * TRAMADOL 50 MG TABLET Take one to two tablets every* LEVOTHYROXINE 125 MCG TABLET once daily. ASPIRIN 81 MG CHEWABLE TABLET Take 1 tablet by mouth daily * FLUTICASONE 50 MCG/ACTUATION * Use 1 [place] in each nostril d* CLOPIDOGREL 75 MG TABLET Take 1 tablet by mouth once d* METOPROLOL SUCCINATE ER 50 MG* Take 50 mg by mouth once demarcus* CALCIUM CARBONATE 600 MG CALC* Take 1 tablet by mouth twice * CPAP nightly ALBUTEROL SULFATE HFA 90 MCG/* Inhale 2 Puffs as instructed * Patient not taking: Reported on 12/11/2017 ACETAMINOPHEN 500 MG TABLET Take 2 tablets by mouth every* Patient not taking: Reported on 12/11/2017 Problem List As Of Date 12/14/2017 Noted Resolved Rheumatoid arthritis [M06.9] INVALID FOR*02/14/2011 Hypothyroidism [E03.9] Mitral valve prolapse [I34.1] Diffuse cystic mastopathy [N60.19] Priority: G More... Polymyalgia rheumatica [M35.3] INVALID FOR* Priority: A More... Hyperlipidemia [E78.5] INVALID FOR* Priority: A OSTEOPENIA [M89.9, M94.9] INVALID FOR* Priority: A More... 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 UTEROVAG PROLAPS-INCOMPL [N81.2] INVALID FOR* Cystocele, midline [N81.11] INVALID FOR* Priority: G NURSING HOME STEROIDS [[id number]] INVALID FOR* PAC (premature atrial contraction) [I49.1] Inguinal hernia [K40.90] INVALID FOR*07/06/2012 ASCVD (arteriosclerotic cardiovascular disease)*INVALID FOR* Priority: A S/P insertion of non-drug eluting coronary miryam*INVALID FOR* More... Upper GI bleed [K92.2] INVALID FOR* More... Peptic ulcer [K27.9] INVALID FOR* Thoracic spondylosis [M47.814] Degenerative disc disease, cervical [M50.30] Encounter Status:Closed by MARTIN JUAREZ PA-C on 12/14/17 XR KNEE 3V AP/LAT/ARNOLD Observed: 12/14/2017 Status: F Source: [facility] 8:43 AM [facility] OTHER CAMPUS REPOSITORY * * *Final Report* * * DATE OF EXAM: Dec 14 2017 8:43AM DIDI [id number] - XR KNEE 3V AP/LAT/ARNOLD HIREN / PROCEDURE REASON: F14-Eqth, unspecified * * * * Physician Interpretation * * * * History: Pain FINDINGS: AP, merchant, and crosstable lateral views of both knees have been obtained. The bones are osteopenic. 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 Patient has also had patellar resurfacing bilaterally. No acute bony process is seen. There is no joint effusion. A single AP view of the pelvis demonstrates bilateral total hip arthroplasties with satisfactory alignment. Hardware is intact without evidence of loosening. Osseous structures and joint spaces are unremarkable. The bones are osteopenic. IMPRESSION: Stable bilateral hip and knee prostheses without interval complication. Project Manager Interior Design: [facility] Transcribe Date/Time: Dec 14 2017 9:09A Dictated by : KARON RODRÍGUEZ MD This examination was interpreted and the report reviewed and electronically signed by: KARON RODRÍGUEZ MD on Dec 14 2017 9:11AM EST [id number] XR PELVIS 1V AP Observed: 12/14/2017 Status: F Source: [place] 8:43 AM [facility] OTHER CAMPUS REPOSITORY * * *Final Report* * * DATE OF EXAM: Dec 14 2017 8:43AM DIDI [id number] - XR PELVIS 1V AP / PROCEDURE REASON: [id number], unspecified * * * * Physician Interpretation * * * * History: Pain FINDINGS: AP, merchant, and crosstable lateral views of both knees have been obtained. The bones are osteopenic. 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 Patient has also had patellar resurfacing bilaterally. No acute bony process is seen. There is no joint effusion. A single AP view of the pelvis demonstrates bilateral total hip arthroplasties with satisfactory alignment. Hardware is intact without evidence of loosening. Osseous structures and joint spaces are unremarkable. The bones are osteopenic. IMPRESSION: Stable bilateral hip and knee prostheses without interval complication. Project Manager Interior Design: [employer] Transcribe Date/Time: Dec 14 2017 9:09A Dictated by : KARON RODRÍGUEZ MD This examination was interpreted and the report reviewed and electronically signed by: KARON RODRÍGUEZ MD on Dec 14 2017 9:11AM EST [id number] PROGRESS Observed: 12/11/2017 Status: COMPLETED Source: [place] 9:52 AM [facility] REPOSITORY HNO ID: [id number] Author: Alex Lang Service: (none) Author Type: Physician Type: Progress Notes Filed: 12/11/2017 10:14 AM Note Text: Emelyn Wolf is a 67 year old who presents for her annual gynecologic exam without complaints. Postmenopausal: yes HRT use: No. Last Pap: 2016 normal HPV: 2016 negative History of abnormal pap: Yes Last mammogram: 2017 normal History of abnormal mammogram: No Obstetric History T0 L3 SAB0 TAB0 Ectopic0 Multiple0 Live Births0 PAST MEDICAL HISTORY Diagnosis Date - Arthritis, multiple joint involvement - ATROPHIC VAGINITIS - Coronary atherosclerosis of unspecified type of vessel, eagle or graft 2007 Dr Gonzalez, s/p- stent - Degenerative disc disease, cervical - Diffuse cystic mastopathy Fibrocystic breast disease - Hematuria 2010 benign after evaluation - Hyperlipidemia - Hypothyroidism - Mild dysplasia of cervix 1998 - Mitral valve prolapse - OSTEOPENIA - Other malaise and fatigue - PAC (premature atrial contraction) Noted history of PACs - Polymyalgia rheumatica (HCC) 1998 atypical, Dr Zuluaga - Pure hypercholesterolemia - SVT (supraventricular tachycardia) (HCC) 2005 rarely now since had ablations done (not completely resolved but resolves on own now) - Thoracic spondylosis - Unspecified sleep apnea cpap - Upper GI bleed 2009, 2010 pre-pyloric antrum, mobic discontinued - VITAMIN D DEFICIENCY NOS PAST SURGICAL HISTORY Procedure Laterality Date - CARDIAC CATH 09/2009 left - CARPAL TUNNEL 2009 right wrist - COLONOSCOP W/ OR W/O BRS SPEC 10/16/2002 Colonoscopy - COLONOSCOP W/ OR W/O [facility] SPEC 02/28/2011 - COLPOSCOPY (VAGINOSCOPY) 02/15/1999 Colposcopy w/ bx - EGD W/O [facility] SPECIMEN W/BX 11-28-11 - EGD W/O OR W/BRUSH/WASH 10/20/2009 EGD H-pylori is negative - EGD WITH CONTROL OF BLEED, 07-26-11 - EGD WITH CONTROL OF BLEED, 07-26-11 - EP study W/ 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 - EP study W/ re-ablation of recuurent SVT 09/2001 - KNEE SCOPE,DIAGNOSTIC 01/2004 Arthroscopy, knee left - OFFICE LEEP before 2002 - PAST SURGICAL HISTORY OF Left 05/2016 wound surgery - PTCA/Stent (OMAR) to LAD 12/14/2007 - REPAIR ING HERNIA,5+Y/O,REDUCIBL 03-02-11 - TOTAL HIP REPLACEMENT Right 02/09/15 Hip replacement, total - TOTAL HIP REPLACEMENT Left 05/13/15 Hip replacement, total - TOTAL KNEE REPLACEMENT 06/2005 Knee replacement, total left - TOTAL KNEE REPLACEMENT 01/07/13 Right FAMILY HISTORY Problem Relation Age of Onset - Alzheimer's Disease Maternal Aunt - Cancer Maternal Aunt liposarcoma - Heart Maternal Grandfather - Heart Paternal Grandmother - Ischemic Heart Disease Brother 50 - Other [Other] [OTHER] Mother MVA AGE 30+ - Other [Other] [OTHER] Father MVA AGE 30 + - Thyroid Brother - Thyroid Sister - Ischemic Heart Disease Sister 62 - Arthritis Daughter psoriatic arthritis SOCIAL HISTORY Social History Substance Use Topics - Smoking status: Never Smoker - Smokeless tobacco: Never Used - Alcohol use No REVIEW OF SYSTEMS Abdomen: No abdominal pain, nausea, vomiting, diarrhea, or constipation. No bloating, early satiety, indigestion, or increased flatulence. Bladder: No dysuria, gross hematuria, urinary frequency, urinary urgency, or incontinence Breast: No breast lumps, nipple d/c, overlying skin changes, redness or skin retraction Allergies and current medication updated:Yes EXAM: Ht 5' 6 (1.68m) Wt 184 lb (83.5kg) LMP 09/11/2003 BMI 29.71 kg/(m2). GENERAL: pleasant, female in no apparent distress HEENT: Normocephalic, atraumatic, mucus membranes moist and no lesions NECK: Supple, full range of motion, no adenopathy and thyroid normal DERMATOLOGY: Normal, without lesions, non-icteric and non-hirsute BREAST: soft, non-tender, symmetric, no dominant mass, normal nipple-areolar complex, no lymphadenopathy and no nipple discharge CHEST: Normal inspiratory effort ABDOMEN: soft, non-tender and no masses PELVIC: external genitalia normal, normal Bartholin's glands, urethra, Mcpherson's glands, no vulvar lesions, no cervical lesions, physiologic discharge present, normal appearing perineal body and perianal region, cystocele 1st degree, cervical prolapse 1st degree BIMANUAL: uterus normal size, shape and consistency, no adnexal masses and non-tender RECTOVAGINAL: rectovaginal exam negative for any masses or nodularity. NEURO: alert and oriented x3,exam grossly non-focal EXTREMITIES: normal ASSESSMENT/PLAN: 1) Health maintenance: pap not needed this year up to date w/ colonoscopy desires cont. estrogen/progestin therapy 2) Follow up one year or sooner as needed Alex Lang MD CNOV Observed: 12/11/2017 Status: COMPLETED Source: [place] 9:50 AM [facility] REPOSITORY Office Visit (WOOB) EMELYN WOLF ([id number]) 1950 [address] [facility] Date Time Provider Department 12/11/17 9:50 AM ALEX LANG WOTREE During your visit today, we recorded the following information about you: Blood pressure Weight Height 132/72 83.5 kg 1.676 m Alex Lang MD 12/11/2017 10:14 AM Signed Emelyn Wolf is a 67 year old who presents for her annual gynecologic exam without complaints. Postmenopausal: yes HRT use: No. Last Pap: 2017 normal HPV: 2017 negative History of abnormal pap: Yes Last mammogram: 2017 normal History of abnormal mammogram: No Obstetric History T0 L3 SAB0 TAB0 Ectopic0 Multiple0 Live Births0 PAST MEDICAL HISTORY Diagnosis Date - Arthritis, multiple joint involvement - ATROPHIC VAGINITIS - Coronary atherosclerosis of unspecified type of vessel, eagle or graft 2007 Dr Gonzalez, s/p- stent - Degenerative disc disease, cervical - Diffuse cystic mastopathy Fibrocystic breast disease - Hematuria 2010 benign after evaluation - Hyperlipidemia - Hypothyroidism - Mild dysplasia of cervix 1998 - Mitral valve prolapse - OSTEOPENIA - Other malaise and fatigue - PAC (premature atrial contraction) Noted history of PACs - Polymyalgia rheumatica (HCC) 1998 atypical, Dr Zuluaga - Pure hypercholesterolemia - SVT (supraventricular tachycardia) (HCC) 2005 rarely now since had ablations done (not completely resolved but resolves on own now) - Thoracic spondylosis - Unspecified sleep apnea cpap - Upper GI bleed 2009, 2010 pre-pyloric antrum, mobic discontinued - VITAMIN D DEFICIENCY NOS PAST SURGICAL HISTORY Procedure Laterality Date - CARDIAC CATH 09/2009 left - CARPAL TUNNEL 2009 right wrist - COLONOSCOP W/ OR W/O BRSH SPEC 10/16/2002 Colonoscopy - COLONOSCOP W/ OR W/O BRS SPEC 02/28/2011 - COLPOSCOPY (VAGINOSCOPY) 02/15/1999 Colposcopy w/ bx - EGD W/O [facility] SPECIMEN W/BX 11-28-11 - EGD W/O OR W/BRUSH/WASH 10/20/2009 EGD H-pylori is negative - EGD WITH CONTROL OF BLEED, 07-26-11 - EGD WITH CONTROL OF BLEED, 07-26-11 - EP study W/ 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 - EP study W/ re-ablation of recuurent SVT 09/2001 - KNEE SCOPE,DIAGNOSTIC 01/2004 Arthroscopy, knee left - OFFICE LEEP before 2002 - PAST SURGICAL HISTORY OF Left 05/2016 wound surgery - PTCA/Stent (OMAR) to LAD 12/14/2007 - REPAIR ING HERNIA,5+Y/O,REDUCIBL 03-02-11 - TOTAL HIP REPLACEMENT Right 02/09/15 Hip replacement, total - TOTAL HIP REPLACEMENT Left 05/13/15 Hip replacement, total - TOTAL KNEE REPLACEMENT 06/2005 Knee replacement, total left - TOTAL KNEE REPLACEMENT 01/07/13 Right FAMILY HISTORY Problem Relation Age of Onset - Alzheimer's Disease Maternal Aunt - Cancer Maternal Aunt liposarcoma - Heart Maternal Grandfather - Heart Paternal Grandmother - Ischemic Heart Disease Brother 50 - Other [Other] [OTHER] Mother MVA AGE 30+ - Other [Other] [OTHER] Father MVA AGE 30 + - Thyroid Brother - Thyroid Sister - Ischemic Heart Disease Sister 62 - Arthritis Daughter psoriatic arthritis SOCIAL HISTORY Social History Substance Use Topics - Smoking status: Never Smoker - Smokeless tobacco: Never Used - Alcohol use No REVIEW OF SYSTEMS Abdomen: No abdominal pain, nausea, vomiting, diarrhea, or constipation. No bloating, early satiety, indigestion, or increased flatulence. Bladder: No dysuria, gross hematuria, urinary frequency, urinary urgency, or incontinence Breast: No breast lumps, nipple d/c, overlying skin changes, redness or skin retraction Allergies and current medication updated:Yes EXAM: Ht 5' 6ANDquot; (1.68m) Wt 184 lb (83.5kg) LMP 09/11/2003 BMI 29.71 kg/(m2). GENERAL: pleasant, female in no apparent distress HEENT: Normocephalic, atraumatic, mucus membranes moist and no lesions NECK: Supple, full range of motion, no adenopathy and thyroid normal DERMATOLOGY: Normal, without lesions, non-icteric and non-hirsute BREAST: soft, non-tender, symmetric, no dominant mass, normal nipple-areolar complex, no lymphadenopathy and no nipple discharge CHEST: Normal inspiratory effort ABDOMEN: soft, non-tender and no masses PELVIC: external genitalia normal, normal Bartholin's glands, urethra, Mcpherson's glands, no vulvar lesions, no cervical lesions, physiologic discharge present, normal appearing perineal body and perianal region, cystocele 1st degree, cervical prolapse 1st degree BIMANUAL: uterus normal size, shape and consistency, no adnexal masses and non-tender RECTOVAGINAL: rectovaginal exam negative for any masses or nodularity. NEURO: alert and oriented x3,exam grossly non-focal EXTREMITIES: normal ASSESSMENT/PLAN: 1) Health maintenance: pap not needed this year up to date w/ colonoscopy desires cont. 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 [Z91.89] Order(s):estradiol (ESTRACE) 1 mg tabletTake 1 tablet by mouth once daily.Disp: 90 tabletRfl: 3 progesterone micronized (PROMETRIUM) 200 mg capsuleTake 1 capsule by mouth once daily.Disp: 90 capsuleRfl: 3 Prescriptions as of 12/11/2017 Sig: ESTRADIOL 1 MG TABLET Take 1 tablet by mouth once d* PROGESTERONE MICRONIZED 200 M* Take 1 capsule by mouth once * PREDNISONE 1 MG TABLET TAKE 4 TABLETS ONE TIME DAILY VENLAFAXINE ER 37.5 MG CAPSUL* Take 1 capsule by mouth once * OMEPRAZOLE 40 MG CAPSULE,RONI* Take 1 capsule by mouth once * TRAMADOL 50 MG TABLET Take one to two tablets every* LEVOTHYROXINE 125 MCG TABLET once daily. ASPIRIN 81 MG CHEWABLE TABLET Take 1 tablet by mouth daily * FLUTICASONE 50 MCG/ACTUATION * Use 1 [place] in each nostril d* CLOPIDOGREL 75 MG TABLET Take 1 tablet by mouth once d* METOPROLOL SUCCINATE ER 50 MG* Take 50 mg by mouth once demarcus* CALCIUM CARBONATE 600 MG CALC* Take 1 tablet by mouth twice * CPAP nightly TEMAZEPAM 15 MG CAPSULE ALBUTEROL SULFATE HFA 90 MCG/* Inhale 2 Puffs as instructed * Patient not taking: Reported on 12/11/2017 GUAIFENESIN ER 600 MG TABLET,* Take 2 tablets by mouth twice* Patient not taking: Reported on 12/11/2017 ACETAMINOPHEN 500 MG TABLET Take 2 tablets by mouth every* Patient not taking: Reported on 12/11/2017 Medication notes this encounter TEMAZEPAM 15 MG CAPSULE >> Leticia Gutierrez Ma 12/11/2017 9:46 AM >> LETICIA GUTIERREZ MA Dec 11, 2017 9:46 AM Received from: External Pharmacy MINOCYCLINE 100 MG CAPSULE >> Leticia Gutierrez Ma 12/11/2017 9:45 AM >> LETICIA GUTIERREZ MA Dec 11, 2017 9:45 AM No longer taking Problem List As Of Date 12/11/2017 Noted Resolved Rheumatoid arthritis [M06.9] INVALID FOR*02/14/2011 Hypothyroidism [E03.9] Mitral valve prolapse [I34.1] Diffuse cystic mastopathy [N60.19] Priority: G More... Polymyalgia rheumatica [M35.3] INVALID FOR* Priority: A More... Hyperlipidemia [E78.5] INVALID FOR* Priority: A OSTEOPENIA [M89.9, M94.9] INVALID FOR* Priority: A More... 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 UTEROVAG PROLAPS-INCOMPL [N81.2] INVALID FOR* Cystocele, midline [N81.11] INVALID FOR* Priority: G GASOLINE FINISHER STEROIDS [[id number]] INVALID FOR* PAC (premature atrial contraction) [I49.1] Inguinal hernia [K40.90] INVALID FOR*07/06/2012 ASCVD (arteriosclerotic cardiovascular disease)*INVALID FOR* Priority: A S/P insertion of non-drug eluting coronary miryam*INVALID FOR* More... Upper GI bleed [K92.2] INVALID FOR* More... Peptic ulcer [K27.9] INVALID FOR* Thoracic spondylosis [M47.814] Degenerative disc disease, cervical [M50.30] Prescriptions ordered this encounter Disp Refills Start End ESTRADIOL 1 MG TABLET 90 t* 3 12/11/2017 Class: [employer] Route: ORAL Sig: Take 1 tablet by mouth once daily. PROGESTERONE MICRONIZED 200 MG CAPSU* 90 c* 3 12/11/2017 Cmt: TEVA brand only, patient has adversre reactions to other brands Route: ORAL Sig: Take 1 capsule by mouth once daily. Medications Discontinued During This Encounter sulfamethoxazole-trimethoprim (BACTR* 05/14/2016 12/11/2017 Class: Historical Med Sig: twice daily. Disc: Reason for discontinue is not on file. minocycline (MINOCIN, DYNACIN) 100 m* 10/20/2016 12/11/2017 Class: Historical Med Sig: Disc: Reason for discontinue is not on file. ergocalciferol, vitamin D2, (VITAMIN* 6 ca* 3 10/02/2015 12/11/2017 Class: Med Update Route: ORAL Sig: Take 1 capsule by mouth every 2 weeks. Disc: Reason for discontinue is not on file. progesterone micronized (PROMETRIUM)* 90 c* 3 01/31/2017 12/11/2017 Route: ORAL Sig: Take 1 capsule by mouth once daily. Disc: Reason for discontinue is not on file. estradiol (ESTRACE) 1 mg tablet 90 t* 3 12/20/2016 12/11/2017 Sig: TAKE 1 TABLET ONE TIME DAILY Disc: Reason for discontinue is not on file. Disposition: Return in 1 year (on 12/11/2018) for Annual Exam. Follow-up and Disposition History Recorded Encounter Status:Closed by ALEX LANG MD on 12/11/17 SCREENING MAMM (CAD), Observed: 10/13/2017 Status: F Source: [facility] 10:10 AM [facility] REPOSITORY [facility] Imaging Services [address] [place] [id number] SCREENING MAMM (CAD), BIL MR#: [id number] Acct: [id number] Name: EMELYN WOLF Rep #: [id number] : 1950 F 67 From: Ciro Reece MD PCP: Ebenezer Vann DO Status: REG CLJohan Study: SCREENING MAMM (CAD), BILAT Date of Exam: 10/13/17 Exam# [id number] Ordering Dr: Alex Lang MD MAMMOGRAPHY - BILATERAL SCREENING REASON FOR EXAM: Female, 67 years old. Routine annual screening examination. PERTINENT HISTORY: Sister with breast cancer. TECHNIQUE: Digital bilateral breast elvira (3D mammographic acquisition) in the CC and MLO projections. 2-D mediolateral oblique (MLO) and craniocaudad (CC) views of both breasts were obtained. CAD: Full Field Digital Mammography with Computer Added Detection was performed. COMPARISON: Comparison is made with prior study dated October 10, 2016 and October 07, 2015. FINDINGS: Breast Composition: There are scattered areas of fibroglandular density. There are no dominant masses or suspicious calcifications. Stable 6.6 mm x 5.7 mm well-defined nodule in the upper outer aspect of the left breast. This most likely represent a small intramammary lymph node. No other significant abnormalities are identified. There has been no significant change since the prior study. HPBI/SCREENING MAMM (CAD), BILAT IMPRESSION: Stable bilateral screening mammogram. Yearly follow-up mammogram recommended. (A) ASSESSMENT CATEGORY: BIRADS Category 2: Benign. A letter regarding these results will be sent to the patient by the facility within 30 days. Approximately 10% of breast cancers are not detected by mammography. A normal mammogram should not delay biopsy of a clinically suspicious abnormality. [id number] Electronically Signed: Ciro Reece MD at 13:08 EST Tel [phone], Service support , CC: Ebenezer Vann DO; Alex Lang MD Project Manager Interior Design: Signed VITAMIN D,25 HYDROXY Collected: 10/11/2017 Status: F Source: [facility] 12:45 PM [facility] REPOSITORY TYPE CODE TESTS RESULT OUT OF RANGE REFERENCE UNITS LAB L506.1000 19.95-100.01 ng/mL Normal Vitamin D 27.7 25-OH Result Comment: Vitamin D 25(OH) Status Range Deficiency <20 ng/mL (50nmol/L) Insuffciency 20 - 30 ng/mL (50 - 75 nmol/L) Sufficiency 30 - 100 ng/mL (75 - 250 nmol/L) Toxicity >100 ng/mL (>250 nmol/L) Performed By: #### L506.1000 #### [facility] [address] [place], [address] DEXA BONE DENSITY Observed: 10/10/2017 Status: F Source: [facility] STUDY () 11:00 AM [facility] REPOSITORY [facility] Imaging Services [address] [place] [address] Dexa Bone Density Study () MR#: [id number] Acct: [id number] Name: EMELYN WOLF Rep #: [id number] : 1950 F 67 From: Ciro Reece MD PCP: Ebenezer Vann DO Status: REG CLI Study: Dexa Bone Density Study () Date of Exam: 10/10/17 Exam# [id number] Ordering Dr: Ebenezer Vann DO STUDY: DUAL ENERGY X-RAY ABSORPTIOMETRY / DXA REASON FOR EXAM: Female, 67 years old. The patient is postmenopausal. Loss of height. TECHNIQUE: Bone Mineral Density (BMD) measurements of lumbar spine and left forearm were obtained. The patient is status post bilateral hip replacement. COMPARISON: Comparison is made with prior study dated July 31, 2013. FINDINGS: Lumbar Spine (L1-L4): g/cm2 (1.199) / T-score (0.3) / Z-score (1.9) Findings are suggestive of normal bone density with a low fracture risk. Left Forearm: g/cm2 (0.810) / T-score (-0.8) / Z-score (0.9) The T-Scores on the most recent prior examination were: Lumbar Spine (L1-L4): There has been worsening of bone density since the previous examination. HPBD/Dexa Bone Density Study (HP) IMPRESSION: The patient is considered normal as outlined below according to World Marcel Organization (WHO) criteria with a low fracture risk. There has been worsening of bone density since the previous examination. Reference Information: The T-score is the number of standard deviations above or below the standard which is normal for young adults at their peak bone mineral density. The World Health Organization (WHO) interprets the T-scores as follows: Above -1 Normal bone density Between -1 and -2.5 Osteopenia Equal to / or below -2.5 Osteoporosis As a practical clinical guideline, osteopenia may be graded as follows: Mild -1 through -1.5 Moderate -1.6 through -2.0 Severe -2.1 through -2.4 The Z-score is the number of standard deviations above or below age-matched controls. A Z-score of less than -1.5 would be considered abnormal. References: 1. NIH Osteoporosis and Related Bone Diseases http://www.osteo.org 2. International Society for Clinical Densitometry http://www.iscd.org 3. National Osteoporosis Foundation http://www.nof.org Electronically Signed: Ciro Reece MD at 12:25 EST Tel [phone], Service support , CC: Ebenezer Vann DO Project Manager Interior Design: Signed ORTHOPEDIC VISIT Observed: 09/19/2017 Status: F Source: [facility] REPORT 8:38 AM [facility] [address] [place] [id number] OFFICE VISIT Date of Service: 09/15/17 MR#: [id number] Acct: [id number] Name: EMELYN WOLF Rep #: [id number] : 1950 Provider: Hailee Garner DO Age/Sex: 67/F [place] [facility] [place]: Signed Intake Vital Signs09/15/17 Height 5 ft 6 in 09/15/17 Weight: 175 lb 09/15/17 Body Mass Index (BMI) 28.2 Intake Visit Reasons: Rt shoulder Is patient in pain?: Yes Pain scale (1-10): 4 Allergies duloxetine [From Cymbalta] Allergy (Mild, Verified 09/15/17 08:30) chest pain adhesive tape Allergy (Verified 09/15/17 08:29) Rash pravastatin [From Pravachol] Allergy (Verified 09/15/17 08:29) MUSCLE PAIN cyclobenzaprine [From Flexeril] Adverse Reaction (Verified 09/15/17 08:29) EXTREME WEAKNESS NSAIDS (Non-Steroidal Anti-Inflamma Adverse Reaction (Verified 09/15/17 08:29) GI BLEED Medications Aspirin [Adult Low Dose Aspirin EC] 81 mg PO QHS 05/31/16 [History Confirmed 09/15/17] Calcium Carbonate/Vitamin D3 [Calcium 600-Vit D3 200 Tablet] 1 ea PO BID 05/31/16 [History Confirmed 09/15/17] Cetirizine HCl [Zyrtec] 10 mg PO QODAY 05/31/16 [History Confirmed 09/15/17] Clopidogrel Bisulfate [Plavix] 75 mg PO 1500 05/31/16 [History Confirmed 09/15/17] Estradiol 1 mg PO QHS 05/31/16 [History Confirmed 09/15/17] Fluticasone 0.05% [Flonase Nasal [place]] 1 spray NASAL QHS 05/31/16 [History Confirmed 09/15/17] L.acidoph,Paracasei, B.lactis [Probiotic] 1 ea PO TID 05/31/16 [History Confirmed 09/15/17] Levothyroxine [Synthroid] 125 mcg PO DAILY 05/31/16 [History Confirmed 09/15/17] Metoprolol(XL)Succ [Toprol Xl (Beta Ashli)] 25 mg PO DAILY 05/31/16 [History Confirmed 09/15/17] Omeprazole [Prilosec] 40 mg PO DAILY 05/31/16 [History Confirmed 09/15/17] PredniSONE 4 mg PO DAILY 05/31/16 [History Confirmed 09/15/17] Progesterone,Micronized [Prometrium] 200 mg PO QHS 05/31/16 [History Confirmed 09/15/17] TraMADol [Ultram] 50 mg PO 4X/DAY 05/31/16 [History Confirmed 09/15/17] Venlafaxine HCl [Effexor] 37.5 mg PO QHS 05/31/16 [History Confirmed 09/15/17] Diazepam [Valium] 5 mg PO 4X/DAY PRN PRN #30 tab 06/10/16 [Rx Confirmed 09/15/17] [facility] Medical History Polymyalgia rheumatica (Chronic) Nonhealing ulcer of left lower leg with fat layer exposed (Chronic) Open wound of left lower leg (Chronic) Contusion of left lower leg (Chronic) History of GI bleed (Chronic) History of coronary artery stent placement (Chronic) GI bleed (Acute) History of blood transfusion (Acute) Myofascitis (Acute) Hyperlipidemia (Chronic) Hypothyroidism (Chronic) Sleep apnea (Chronic) Thoracic spondylosis (Chronic) Status post bilateral knee replacements (Inactive) Surgical History H/O angioplasty (Inactive) S/P bilateral hip replacements (Inactive) S/P hernia repair (Inactive) Status post carpal tunnel release (Inactive) heart ablation (Inactive) menicus repair (Inactive) wound debridement (Inactive) Family History Other Heart disease 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 She complains of intermittent posterior shoulder pain for several years. No injury known. She denies radiation of pain. No tingling/numbness. Minimally clicking. Occasionally catches. She has not seen anyone recently for shoulder. No x-ray. No recent shoulder injections (several years ago). She does take Tramadol which does seem to help with the pain. ROS Const Reports system reviewed and no additional complaints, except as docu Eyes Reports system reviewed and no additional complaints, except as docu ENT Reports system reviewed and no additional complaints, except as docu Card Reports system reviewed and no additional complaints, except as docu Resp Reports system reviewed and no additional complaints, except as docu GI Reports system reviewed and no additional complaints, except as docu Reports system reviewed and no additional complaints, except as docu Musc Reports joint pain Skin/Breast Reports system reviewed and no additional complaints, except as docu Neuro Yes system reviewed and no additional complaints, except as docu Psych Reports system reviewed and no additional complaints, except as docu Endo Reports system reviewed and no additional complaints, except as docu Favio/Lymph Reports system reviewed and no additional complaints, except as docu Aller/Immun Reports system reviewed and no additional complaints, except as docu Ortho Exam Right Shoulder Skin/Wound: Yes CDI Contralateral Normal: Yes Testing: Positive AROM-Forward Elevation 0-180 (120), AROM- External Rotation at 90 0-60 and PROM-Forward Elevation 0-180 (160) Internal Rotation: L1 SHOULDER: TTP post shoulder, pain with extension Office Procedures Ortho Injections Injections Yes Subacromial Injection Right Details: Obtained consent for injection. Under sterile conditions, injected the patients right subacromial joint with a 10cc cocktail of 8cc bupivacaine and 2cc kenalog. The patient tolerated the injection well without any noted complication. Patient should call our office if redness develops, pain worsens or if they have any concerns. Office Meds Kenalog Performing Provider: Hailee Garner DO Administered by: Hailee Garner DO on 09/15/17 09:19 Dose Route Admin Location Lot Number Expiration DateNDC Phlebotomy Program Coordinator 4 mg Intra-Articularright [id number] 11/09/18 [id number] [email or web address] Assessment AND Plan 1. Acute pain of right shoulder M25.511; M25.511 Plan Obtained X-rays of patient's right shoulder. Personally reviewed x-rays. There is no obvious fracture, dislocation, or lucency noted. Explained that she would benefit from steroid injection, she has some calcifications on xrays but no OA noted. Gave the AAOS program for HEP. Follow up as needed or sooner if pain, swelling, numbness or associated symptoms, or concerns develop. All questions answered. Patient in agreement of plan. Orders Orders: Medications Discontinued: Kenalog (triamcinolone acetonide) [id number] mg Intra- Articular ONCE NS Audie laird Reason: Office Medication has been Documented as given 09/19/17 0838 <Electronically signed by Hailee Garner DO> Date Hailee Garner DO Cosigner Signature: Date (if applicable) CC: SHOULDER MIN 2 VIEWS Observed: 09/15/2017 Status: F Source: [facility] 8:55 AM [facility] REPOSITORY [facility] Imaging Services [address] [place] [address] Shoulder min 2 Views MR#: [id number] Acct: [id number] Name: EMELYN WOLF Rep #: [id number] : 1950 F 67 From: Israel Lawrence MD PCP: Ebenezer Vann DO Status: REG CLI Study: Shoulder min 2 Views Date of Exam: 09/15/17 Exam# [id number] Ordering Dr: Hailee Garner DO STUDY: X-RAY - RIGHT SHOULDER REASON FOR EXAM: Female, 67 years old. Shoulder pain. No trauma TECHNIQUE: 3 view(s) of the shoulder. COMPARISON: None. FINDINGS: Normal glenohumeral articulation. There is degenerative arthrosis of the acromioclavicular joint without inferior osseous spur formation. Normal acromion. Normal humeral head and visualized proximal humerus. The soft tissue structures are unremarkable. Normal visualized pulmonary apex. RAD/Shoulder min 2 Views IMPRESSION: Acromioclavicular joint arthrosis Electronically Signed: Israel Lawrence MD, FACR at 9:31 EST , Service support , CC: Hailee Garner DO; Ebenezer Vann DO Project Manager Interior Design: Signed URGENT CARE VISIT Observed: 09/03/2017 Status: F Source: [facility] REPORT 12:09 PM [facility] REPOSITORY [address] [place] [address] OFFICE VISIT Date of Service: 09/03/17 MR#: [id number] Acct: [id number] Name: EMELYN WOLF Rep #: [id number] : 1950 Provider: NIKO Walker Age/Sex: 67/F Location: [facility] Status: Signed Intake Vital Signs09/03/17 Height 5 ft 7 in 09/03/17 Weight: 173 lb 09/03/17 Body Mass Index (BMI) 27.1 Intake Visit Reasons: Shoulder injury Allergies adhesive tape Allergy (Verified 09/03/17 10:25) Rash pravastatin [From Pravachol] Allergy (Verified 09/03/17 10:25) MUSCLE PAIN cyclobenzaprine [From Flexeril] Adverse Reaction (Verified 09/03/17 10:25) EXTREME WEAKNESS NSAIDS (Non-Steroidal Anti-Inflamma Adverse Reaction (Verified 09/03/17 10:25) GI BLEED Medications Aspirin [Adult Low Dose Aspirin EC] 81 mg PO QHS 05/31/16 [History Confirmed 06/13/16] Calcium Carbonate/Vitamin D3 [Calcium 600-Vit D3 200 Tablet] 1 ea PO BID 05/31/16 [History Confirmed 06/13/16] Cetirizine HCl [Zyrtec] 10 mg PO QODAY 05/31/16 [History Confirmed 06/13/16] Clopidogrel Bisulfate [Plavix] 75 mg PO 1500 05/31/16 [History Confirmed 06/13/16] Estradiol 1 mg PO QHS 05/31/16 [History Confirmed 06/13/16] Fluticasone 0.05% [Flonase Nasal [place]] 1 spray NASAL QHS 05/31/16 [History Confirmed 06/13/16] L.acidoph,Paracasei, B.lactis [Probiotic] 1 ea PO TID 05/31/16 [History Confirmed 06/13/16] Levothyroxine [Synthroid] 125 mcg PO DAILY 05/31/16 [History Confirmed 06/13/16] Metoprolol(XL)Succ [Toprol Xl (Beta Ashli)] 25 mg PO DAILY 05/31/16 [History Confirmed 06/13/16] Omeprazole [Prilosec] 40 mg PO DAILY 05/31/16 [History Confirmed 06/13/16] PredniSONE 4 mg PO DAILY 05/31/16 [History Confirmed 06/13/16] Progesterone,Micronized [Prometrium] 200 mg PO QHS 05/31/16 [History Confirmed 06/13/16] TraMADol [Ultram] 50 mg PO 4X/DAY 05/31/16 [History Confirmed 06/13/16] Venlafaxine HCl [Effexor] 37.5 mg PO QHS 05/31/16 [History Confirmed 06/13/16] Diazepam [Valium] 5 mg PO 4X/DAY PRN PRN #30 tab 06/10/16 [Rx Confirmed 06/13/16] Levofloxacin [Levaquin] 500 mg PO .QDAILY #7 tab 06/10/16 [Rx Confirmed 06/13/16] Oxycodone HCl/Acetaminophen [Percocet 5-325] 1 - 2 tab PO 4X/DAY PRN PRN #40 tab 06/10/16 [Rx Confirmed 06/13/16] [facility] Medical History Polymyalgia rheumatica (Chronic) Nonhealing ulcer of left lower leg with fat layer exposed (Chronic) Open wound of left lower leg (Chronic) Contusion of left lower leg (Chronic) History of GI bleed (Chronic) History of coronary artery stent placement (Chronic) Social History Smoking Status: Never smoker alcohol intake: never HPI Shoulder/Arm Injury/Condition Emelyn Wolf is a 67-year-old right-handed white female who presents with a 1 day history of severe posterior and lateral shoulder pain that began on 09/02/2017. The patient states that she has had a cortisone injection in the right shoulder approximately 30 years ago. She denies any trauma to the shoulder or over exertion. She has a history of polymyalgia rheumatica and feels her shoulder pain may be contributed to that. She states she takes prednisone 4-6 mg daily tramadol 50 mg 4 pills daily and last night due to the severe pain took 2 oxycodone's which helped her sleep. She states she would like to try to see an orthopedic physician. She has had surgery by Dr. Way in the past. Today, her pain is somewhat improved but she has limited range of motion of the right shoulder. She denies any cervical pain or numbness and tingling into the right arm. 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 Date of injury/condition: 09/02/17 Current symptoms: Reports stiffness and weakness Location: posterior, lateral Character: intermittent, throbbing Pain scale (0-10): 8 Onset: <1 day Exacerbated by: motion, lifting, reaching/overhead motion, arm crossing chest Previous treatments: Anti-inflammatory meds: right, Ice: right, Heat: right, Injections: right, Physical therapy: right ROS Const Constitutional: Positive for weakness; no chills or fever(s) Eyes Eyes: No change in vision ENT ENT: No ear pain, sore throat, nasal congestion, nasal discharge or neck pain Resp Respiratory: No cough, chest congestion, shortness of breath or wheezing Cardio Cardiology: No chest pain at rest or chest pain with exertion Gastro GI: No abdominal pain, diarrhea, vomiting or nausea/dyspepsia Musc Musculoskeletal: Positive for muscle weakness, stiffness, limited range of motion and joint pain; no back pain, abnormal walking, numbness, neck pain, radiating pain into limb or tingling Skin Skin: No rash or change in skin color Neuro Neurology: Positive for weakness; no confusion, abnormal walking, abnormal speech, numbness or tingling Psych Psychiatric: No confusion Aller/Imm Allergy/Immunologic: No wheezing Exam Const General: healthy appearing, no acute distress Orientation: oriented x3, oriented to person, oriented to place, oriented to time [facility] Head: normocephalic Ears: external ears normal, TM's normal bilaterally, EAC's normal Eyes General: appearance normal, both eyes and all related structures Conjunctivae: conjunctivae normal Sclera: sclerae normal Pupils: PERRL Neck Neck: no lymphadenopathy Thyroid: thyroid normal Chest Chest palpation AND inspection: normal inspection of the chest Resp Effort AND Inspection: normal respiratory effort, no cough, no respiratory distress Auscultation: Bilateral: Clear to Auscultation Cardio Rate: regular rate Rhythm: regular rhythm GI Inspection: normal to inspection Auscultation: normal bowel sounds Palpation: no hepatosplenomegaly, no splenomegaly, no masses Musc Musculoskeletal: Yes muscle weakness and decreased ROM; no joint tenderness (Pain is located in the right trapezius and periscapular region), joint warmth or joint redness Skin General: no pallor Rashes: no rashes Nails: no clubbing Neuro General: oriented x3, gait normal Extrem General: normal to inspection, no pedal edema, no calf tenderness, normal gait, no edema, no cyanosis, no clubbing, no calf tenderness bilaterally, no pedal edema Psych Mood: congruent mood Affect: normal affect Speech and Movement: speech and movement normal Assessment AND Plan 1. Shoulder injury S49.90XA 2. Right shoulder pain M25.511 Plan The patient was discharged home. We discussed the possibility of a right shoulder x-ray but decided against it at this time. She declined a sling, stating she has slings at home. She would like to make an orthopedic appointment next week. Shoulder stretches and exercises were reviewed with the patient including pendulum exercises AC joint stretches. She is to continue her medications as directed. Frequent ice to the shoulder. Avoid lifting with the right arm for the next few days. Coding Level of Care Code Off vis,new,level 3 Diagnoses Shoulder injury S49.90XA Right shoulder pain M25.511 09/03/17 1209 <Electronically signed by Ebenezer POPE> Date Ebenezer POPE Cosigner Signature: Date (if applicable) CC: ALLERGIES ALLERGIES DATE TYPE / NAME / CODE REACTION SEVERITY SOURCE CODE 07/24/2018 Drug NSAIDS (Non-Steroidal GI BLEED Unknown [place] Allergy/41 Anti-Inflamma/[id number] [facility] [id number]( 43(RXNO) [facility]) Repository 07/24/2018 Drug adhesive Rash Unknown [place] Allergy/41 tape/[id number](RXNOR Community [id number]([facility]) Repository 07/24/2018 Drug pravastatin/[id number] MUSCLE PAIN Unknown Rajendra Allergy/41 6(RXNORM) [facility] 7122822([facility]) Repository 07/24/2018 Drug cyclobenzaprine/F0060 EXTREME WEAKNESS Unknown [place] Allergy/41 96901(RXNORM) [facility] 8616826([facility]) Repository 04/03/2018 Drug duloxetine/[id number] CHEST PAIN PA [place] Allergy/41 (RXNORM) Community 6848087([facility]) Repository 02/04/2010 DRUG CYCLOBENZAPRINE HCL INTOLERANCE [place] [facility]/41 Clinic Other 9831640([facility]) Repository 01/17/2008 Chemical/4 ADHESIVE TAPE RASH [place] [id number](S (ROSINS) Clinic Other NOMED CT) [place] Repository 08/10/2005 DRUG PRAVASTATIN SODIUM Myalgia [place] [facility]/41 [facility] Other 2659399([facility]) Repository ENCOUNTERS ENCOUNTERS ADMIT/DISCHARGE ACCOUNT ADMITTING ENCOUNTER LOCATION SOURCE NUMBER CLASS 08/13/2018/08/13/20 [id number] Ambulatory [address] ing:SDCRoom: Repository AC06 07/24/2018 [id number] Ambulatory BMSBuilding:Rosey Drew MS.[facility] Repository 07/24/2018 [id number] [facility] 07/20/2018 [id number] [facility] ing:MRI Repository 07/17/2018 [id number] [facility] ing:RAD Repository 06/05/2018/06/05/20 [id number] Ambulatory [address] ing:PT Repository 05/11/2018/05/11/20 [id number] Mamta Saxena Ambulatory [address] ing:PCURoom: Repository [id number]: 1 05/11/2018/05/11/20 [id number] Ambulatory BMSBuilding:W [place] 18 [facility] Repository 05/11/2018 [id number] Ambulatory BMSBuilding:Rosey Drew MS.[facility] Repository 04/20/2018/04/20/20 [id number] Ambulatory BMSBuilding:B Rajendra 18 MS.[facility] Repository 04/03/2018 [id number] [facility] ing:HPRAD Repository 04/03/2018/04/03/20 [id number] Ambulatory BMSBuilding:Rosey Drew 18 MS.[facility] Repository 03/14/2018/03/14/20 [id number] Ambulatory BMSBuilding:B Rajendra 18 MS.NOW [facility] Repository 03/12/2018 [id number] Ambulatory [facility] Hospital ing:LAB Repository 02/23/2018/02/24/20 [id number] Ambulatory BMSBuilding:B Rajendra 18 MS.[facility] Repository 02/21/2018 [id number] Ambulatory BMS [facility] Repository 01/03/2018 [id number] Ambulatory [facility] Hospital ing:MRI Repository 12/14/2017/12/19/19 [id number] Ambulatory [address] Main [place] Repository 12/14/2017/12/15/19 [id number] Ambulatory [address] Other [place] Repository 12/11/2017/12/14/19 [id number] Ambulatory [address] Repository 10/13/2017 [id number] Ambulatory [facility] Hospital ing:BI Repository 10/11/2017 [id number] Ambulatory [facility] Hospital ing:MTLAB Repository 10/10/2017 [id number] [facility] Repository 09/15/2017 [id number] Ambulatory [facility] Hospital ing:HPRAD Repository 09/15/2017/09/15/19 [id number] Ambulatory BMSBuilding:B Rajendra 18 MS.SMO [facility] Repository 09/03/2017/09/03/20 [id number] Ambulatory BMSBuilding:B [place] 17 MS.[facility] Repository PAYERS PAYERS ENCOUNTER GUARANTOR PAYER SUBSCRIBER SOURCE 08/13/2018 JEAN CLAUDE A Primary EMELYN Coffey Rajendra [id number] Insurance:MEDICARE [facility]NGDOB: [facility] PART A BPolicy Number: [id number] [id number] Repository 65504Dfj: (330) Date:2018-07-24 [phone] () 08/13/2018 Secondary EMELYN Erlinda Drew Insurance:HUMANA YOUNGDOB: [facility] COMMERCIALPolicy [id number] Hospital Number: Repository [id number] Date:9542-63-67QX[address] [address]WE: 08/13/2018 Tertiary NOT GIVENUNK [place] Insurance:SELF PAY [facility] Number: Effective Repository Date:2018-07-24 07/24/2018 JEAN CLAUDE A Primary EMELYN Drew [id number] Insurance:MEDICARE YOUNGDOB: Community [place] PART A BPolicy Number: [id number], [place] [id number] Repository 95541Hrf: ([phone]) Date:2018-06-21 [phone] () 07/24/2018 Secondary EMELYN Coffey Rajendra Insurance:HUMANA YOUNGDOB: Community COMMERCIALPolicy [id number] Hospital Number: Repository [id number] Date:7404-95-17QQ [address] [address]SA: 07/24/2018 Tertiary NOT GIVENUNK [place] Insurance:SELF PAY [facility] Number: Effective Repository Date:2018-06-21 07/24/2018 JEAN CLAUDE A Primary EMELYN Drew [id number] Insurance:MEDICARE YOUNGDOB: Community [place] PART A BPolicy Number: [id number] [id number] Repository 43973Dap: (559) Date:2018-07-24 [phone] () 07/24/2018 Secondary EMELYN Erlinda [place] Insurance:HUMANA YOUNGDOB: [facility] COMMERCIALPolicy [id number] Hospital Number: Repository [id number] Date:7436-50-50FX [address] [address]HA: 07/24/2018 Tertiary NOT GIVENUNK Rajendra Insurance:SELF PAY [facility] Number: Effective Repository Date:2018-07-24 07/20/2018 JEAN CLAUDE A Primary EMELYN Javieroster [id number] Insurance:MEDICARE YOUNGDOB: Community [place] PART A BPolicy Number: [id number], [place] [id number] Repository 96918Epc: (192) Date:2018-07-19 [phone] () 07/20/2018 Secondary EMELYN J Rajendra Insurance:HUMANA YOUNGDOB: Community COMMERCIALPolicy [id number] Hospital Number: Repository [id number] Date:1486-45-46IK[address] [address]WE: 07/20/2018 Tertiary NOT GIVENUNK [place] Insurance:SELF PAY [facility] Number: Effective Repository Date:2018-07-19 07/17/2018 JEAN CLAUDE A Primary EMELYN Drew [id number] Insurance:MEDICARE YOUNGDOB: Community [place] PART A BPolicy Number: [id number], [place] [id number] Repository 11577Xke: (906) Date:2018-07-17 [phone] () 07/17/2018 Secondary EMELYN Coffey Rajendra Insurance:HUMANA YOUNGDOB: [facility] COMMERCIALPolicy [id number] Hospital Number: Repository [id number] Date:1039-50-71HP[address] [address]UN: 07/17/2018 Tertiary NOT GIVENUNK Rajendra Insurance:SELF PAY [facility] Number: Effective Repository Date:2018-07-17 06/05/2018 JEAN CLAUDE A Primary EMELYN Javieroster [id number] Insurance:MEDICARE YOUNGDOB: Community [place] PART A BPolicy Number: [id number], [place] [id number] Repository 51034Kyz: (262) Date:2014-07-12 [phone] () 06/05/2018 Secondary EMELYN Coffey [place] Insurance:HUMANA YOUNGDOB: Community COMMERCIALPolicy [id number] Hospital Number: Repository [id number] Date:8270-50-75DH[address] [address]NQ: 06/05/2018 Tertiary NOT GIVENUNK Rajendra Insurance:SELF PAY [facility] Number: Effective Repository Date:2018-04-10 05/11/2018 JEAN CLAUDE A Primary EMELYN Javieroster [id number] Insurance:MEDICARE YOUNGDOB: Community [place] PART A BPolicy Number: [id number], [place] [id number] Repository 92142Rkh: (731) Date:2018-05-11 [phone] () 05/11/2018 Secondary EMELYN Coffey [place] Insurance:HUMANA YOUNGDOB: Community COMMERCIALPolicy [id number] Hospital Number: Repository [id number] Date:6044-25-02VY [address] [address]LM: 05/11/2018 Tertiary NOT GIVENUNK [place] Insurance:SELF PAY [facility] Number: Effective Repository Date:2018-05-11 05/11/2018 JEAN CLAUDE A Primary EMELYN Drew [id number] Insurance:MEDICARE YOUNGDOB: Community [place] PART A BPolicy Number: [id number], [place] [id number] Repository 45557Tqv: (330) Date:2018-05-11 [phone] () 05/11/2018 Secondary EMELYN J Rajendra Insurance:HUMANA YOUNGDOB: [facility] [id number] Hospital Number: Repository [id number] Date:3550-71-23MM [address] [address]VU: 05/11/2018 Tertiary NOT GIVENUNK Rajendra Insurance:SELF PAY [facility] Number: Effective Repository Date:2018-05-11 05/11/2018 JEAN CLAUDE A Primary EMELYN Javieroster [id number] Insurance:MEDICARE YOUNGDOB: Community [place] PART A BPolicy Number: [id number], [place] [id number] Repository 84327Ggr: (330) Date:2018-05-11 [phone] () 05/11/2018 Secondary EMELYN Coffey Rajendra Insurance:HUMANA YOUNGDOB: [facility] [id number] Hospital Number: Repository [id number] Date:0938-68-86QL [address] [address]CT: 05/11/2018 Tertiary NOT GIVENUNK Rajendra Insurance:SELF PAY [facility] Hospital Number: Effective Repository Date:2018-05-11 04/20/2018 JEAN CLAUDE A Primary EMELYN Coffey [place] [id number] Insurance:MEDICARE YOUNGDOB: Community [place] PART A BPolicy Number: [id number], [place] [id number] Repository 56616Pms: (669) Date:2018-04-09 [phone] () 04/20/2018 Secondary EMELYN Coffey Rajendra Insurance:HUMANA YOUNGDOB: [facility] COMMERCIALPolicy [id number] Hospital Number: Repository [id number] Date:0568-39-11AN [address] [place] [address]TM: 04/20/2018 Tertiary NOT GIVENUNK Rajendra Insurance:SELF PAY [facility] Hospital Number: Effective Repository Date:2018-04-20 04/03/2018 JEAN CLAUDE A Primary EMELYN Drew [id number] Insurance:MEDICARE YOUNGDOB: Community [place] PART A BPolicy Number: [id number], [place] [id number] Repository 91373Zog: 330) Date:2018-04-03 [phone] () 04/03/2018 Secondary EMELYN Coffey Rajendra Insurance:HUMANA YOUNGDOB: [facility] [id number] Hospital Number: Repository [id number] Date:2956-08-49DF [address] [place] [address]PA: 04/03/2018 Tertiary NOT GIVENUNK Rajendra Insurance:SELF PAY [facility] Hospital Number: Effective Repository Date:2018-04-03 04/03/2018 JEAN CLAUDE A Primary EMELYN Javieroster [id number] Insurance:MEDICARE YOUNGDOB: Community [place] PART A BPolicy Number: [id number], [place] [id number] Repository 72474Yeb: (086) Date:2018-01-08 [phone] () 04/03/2018 Secondary EMELYN Coffey [place] Insurance:HUMANA YOUNGDOB: [facility] COMMERCIALPolicy [id number] Hospital Number: Repository [id number] Date:1825-63-46NN [address] [address]JD: 04/03/2018 Tertiary NOT GIVENUNK Rajendra Insurance:SELF PAY [facility] Number: Effective Repository Date:2018-03-30 03/14/2018 JEAN CLAUDE A Primary EMELYN Drew [id number] Insurance:MEDICARE YOUNGDOB: Community [place] PART A BPolicy Number: [id number], [place] [id number] Repository 58681Wqs: (330) Date:2018-03-14 [phone] () 03/14/2018 Secondary EMELYN Erlinda Rajendra Insurance:HUMANA YOUNGDOB: Community COMMERCIALPolicy [id number] Hospital Number: Repository [id number] Date:7066-79-44VR [address] [place] [address]AH: 03/14/2018 Tertiary NOT GIVENUNK [place] Insurance:SELF PAY [facility] Number: Effective Repository Date:2018-03-14 03/12/2018 JEAN CLAUDE A Primary EMELYN Drew [id number] Insurance:MEDICARE YOUNGDOB: Community [place] PART A BPolicy Number: [id number], [place] [id number] Repository 33259Prz: (330) Date:2018-03-12 [phone] () 03/12/2018 Secondary EMELYN Coffey [place] Insurance:HUMANA YOUNGDOB: [facility] COMMERCIALPolicy [id number] Hospital Number: Repository [id number] Date:7789-73-64YR [address] [place] [address]CK: 03/12/2018 Tertiary NOT GIVENUNK Rajendra Insurance:SELF PAY [facility] Number: Effective Repository Date:2018-03-12 02/23/2018 JEAN CLAUDE A Primary EMELYN Drew [id number] Insurance:MEDICARE YOUNGDOB: Community [place] PART A BPolicy Number: [id number], [place] [id number] Repository 67355Eed: (330) Date:2017-08-21 [phone] () 02/23/2018 Secondary EMELYN Coffey Rajendra Insurance:HUMANA YOUNGDOB: Community COMMERCIALPolicy [id number] Hospital Number: Repository [id number] Date:9835-52-11GI [address] [place] [address]OJ: 02/23/2018 Tertiary NOT GIVENUNK Rajendra Insurance:SELF PAY [facility] Number: Effective Repository Date:2018-02-23 02/21/2018 JEAN CLAUDE A Primary EMELYN Drew [id number] Insurance:MEDICARE YOUNGDOB: Community [place] PART A BPolicy Number: [id number], [place] [id number] Repository 68287Bzm: 330) Date:2018-02-21 [phone] () 02/21/2018 Secondary EMELYN Coffey Rajendra Insurance:HUMANA YOUNGDOB: Community COMMERCIALPolicy [id number] Hospital Number: Repository [id number] Date:7429-84-83GO [address] [address]HJ: 02/21/2018 Tertiary NOT GIVENUNK Rajendra Insurance:SELF PAY [facility] Number: Effective Repository Date:2018-02-21 01/03/2018 JEAN CLAUDE A Primary EMELYN Drew [id number] Insurance:MEDICARE YOUNGDOB: Community [place] PART A BPolicy Number: [id number], [place] [id number] Repository 70405Oag: (330) Date:2018-01-03 [phone] () 01/03/2018 Secondary EMELYN Coffey [place] Insurance:HUMANA YOUNGDOB: [facility] [id number] Hospital Number: Repository [id number] Date:9842-16-16ZL [address] [place] [address]WO: 01/03/2018 Tertiary NOT GIVENUNK Rajendra Insurance:SELF PAY [facility] Number: Effective Repository Date:2018-01-03 10/13/2017 Jean Claude A Primary EMELYN Drew [id number] Insurance:MEDICARE YOUNGDOB: Community [place] PART A BPolicy Number: [id number], [place] [id number] Repository 82071Khf: 330) Date:2017-09-18 [phone] () 10/13/2017 Secondary EMELYN Erlinda [place] Insurance:HUMANA YOUNGDOB: Community COMMERCIALPolicy [id number] Hospital Number: Repository [id number] Date:7123-75-46WK[address] [address]YX: 10/13/2017 Tertiary NOT GIVENUNK [place] Insurance:SELF PAY [facility] Number: Effective Repository Date:2017-09-18 10/11/2017 Jean Claude A Primary EMELYN Drew [id number] Insurance:MEDICARE YOUNGDOB: Community [place] PART A BPolicy Number: [id number], [place] [id number] Repository 601[address]Wja: (963) Date:2017-10-11 [phone] () 10/11/2017 Secondary EMELYN Erlinda [place] Insurance:HUMANA YOUNGDOB: Community COMMERCIALPolicy [id number] Hospital Number: Repository [id number] Date:6792-64-12WA [address] [address]JV: 10/11/2017 Tertiary NOT GIVENUNK [place] Insurance:SELF PAY [facility] Number: Effective Repository Date:2017-10-11 10/10/2017 Jean Claude A Primary EMELYN Drew [id number] Insurance:MEDICARE YOUNGDOB: Community [place] PART A BPolicy Number: [id number], [place] [id number] Repository 39639Mjl: 330) Date:2017-10-04 [phone] () 10/10/2017 Secondary EMELYN Erlinda Rajendra Insurance:HUMANA YOUNGDOB: Community COMMERCIALPolicy [id number] Hospital Number: Repository [id number] Date:3681-19-72JA[address] [address]CD: 10/10/2017 Tertiary NOT GIVENUNK Rajendra Insurance:SELF PAY [facility] Number: Effective Repository Date:2017-10-04 09/15/2017 Jean Claude A Primary EMELYN Drew [id number] Insurance:MEDICARE YOUNGDOB: Community [place] PART B ONLYPolmercy[facility] [id number], [place] Number: Repository [id number]: 330 [id number] [phone] (HP) Date:2017-09-15 09/15/2017 Secondary EMELYN Coffey [place] Insurance:HUMANA YOUNGDOB: [facility] COMMERCIALPolicy [id number] Hospital Number: Repository [id number] Date:8858-32-98AC [address] [address]CO: 09/15/2017 Tertiary NOT GIVENUNK Rajendra Insurance:SELF PAY [facility] Hospital Number: Effective Repository Date:2017-09-15 09/15/2017 Jean Claude A Primary EMELYN Javieroster [id number] Insurance:MEDICARE YOUNGDOB: [facility] [place] [facility] [id number], [place] Number: Repository [id number]: 330 [id number] [phone] () Date:2017-09-06 09/15/2017 Secondary EMELYN J [place] Insurance:HUMANA YOUNGDOB: [facility] [id number] Hospital Number: Repository [id number] Date:7083-36-75US [address] [address]AC: 09/15/2017 Tertiary NOT GIVENUNK Rajendra Insurance:SELF PAY [facility] Hospital Number: Effective Repository Date:2017-09-06 09/03/2017 JEAN CLAUDE A Primary EMELYN Javieroster [id number] Insurance:MEDICARE YOUNGDOB: [facility] [place] PART A BPolicy Number: [id number], [place] [id number] Repository 25418Bla: 330) Date:2017-09-03 [phone] () 09/03/2017 Secondary EMELYN J Rajendra Insurance:HUMANA YOUNGDOB: [facility] [id number] Hospital Number: Repository [id number] Date:2114-41-87GB [address] [address]UD: 09/03/2017 Tertiary NOT GIVENUNK [place] Insurance:SELF PAY [facility] Hospital Number: Effective Repository Date:2017-09-03
== END 2018-08-13 14:49 | disposition home or self-care (01) ==
LOC: SDC 08:32 → AC 08:32
PROVIDERS: Family Provider Family Medicine; PCP Family Medicine; Referring Provider Orthopaedic Surgery; Visit Provider Orthopaedic Surgery
PROC: (CPT 29827; principal; 2018-08-13 10:25)
DX: S43.421A Sprain of right rotator cuff capsule, initial encounter (principal); X58.XXXA Exposure to other specified factors, initial encounter; M19.011 Primary osteoarthritis, right shoulder; M75.21 Bicipital tendinitis, right shoulder; K21.9 Gastro-esophageal reflux disease without esophagitis; E78.00 Pure hypercholesterolemia, unspecified; Z79.899 Other long term (current) drug therapy; Z79.82 Long term (current) use of aspirin; Z79.02 Long term (current) use of antithrombotics/antiplatelets; I25.10 Atherosclerotic heart disease of native coronary artery without angina pectoris; I10 Essential (primary) hypertension; Z95.5 Presence of coronary angioplasty implant and graft; G47.30 Sleep apnea, unspecified; M35.3 Polymyalgia rheumatica; E78.5 Hyperlipidemia, unspecified; E03.9 Hypothyroidism, unspecified; M47.894 Other spondylosis, thoracic region
CPT/HCPCS: 29824; 29826; 29827; 64415; 36415; 80048; 84443; 85025; 93005; J7120; J2405

== ENCOUNTER → 2018-09-10 10:32 | Outpatient (CLI) | payer MEDICARE, OTHER, SELFPAY ==
[2018-08-13 08:55] VITALS: BMI 28.7
[2018-09-10 12:26] LABS: T4 Free Direct 1.03 ng/dL (0.76-1.46); Thyroid Stim Hormone (TSH) 3.73 uIU/mL (0.358-3.74)
== END ==
PROVIDERS: Family Provider Family Medicine; PCP Family Medicine
DX: E03.9 Hypothyroidism, unspecified (principal)
CPT/HCPCS: 36415; 84439; 84443

== ENCOUNTER → 2018-11-02 13:39 | Outpatient (CLI) | payer MEDICARE, OTHER, SELFPAY ==
--- NOTE | 2018-11-02 13:44 | BI_ITS ---
MAMMOGRAPHY - BILATERAL SCREENING REASON FOR EXAM: Female, 68 years old. Routine annual screening examination. PERTINENT HISTORY: Sister with breast cancer. TECHNIQUE: Digital bilateral breast elvira (3D mammographic acquisition) in the CC and MLO projections. 2-D mediolateral oblique (MLO) and craniocaudad (CC) views of both breasts were obtained. CAD: Full Field Digital Mammography with Computer Added Detection was performed. COMPARISON: Comparison is made with prior study dated October 13, 2017 and October 10, 2016. FINDINGS: Breast Composition: There are scattered areas of fibroglandular density. There are no dominant masses or suspicious calcifications. Stable 6.6 mm well-defined nodule in the axillary region of the left breast most likely representing a small lymph node. No other significant abnormalities are identified. There has been no significant change since the prior study. BI/SCREENING MAMM (CAD), BILAT IMPRESSION: Stable bilateral screening mammogram. Yearly follow-up mammogram recommended. (A) ASSESSMENT CATEGORY: BIRADS Category 2: Benign. A letter regarding these results will be sent to the patient by the facility within 30 days. Approximately 10% of breast cancers are not detected by mammography. A normal mammogram should not delay biopsy of a clinically suspicious abnormality. [id number] Electronically Signed: Ciro Reece MD at 15:25 EST , Service support ,
== END ==
PROVIDERS: Family Provider Family Medicine; PCP Family Medicine; Visit Provider Obstetrics & Gynecology
DX: Z12.31 Encounter for screening mammogram for malignant neoplasm of breast (principal)
CPT/HCPCS: 77063; 77067

== ENCOUNTER → 2018-11-16 06:57 | Outpatient (CLI) | payer MEDICARE, OTHER, SELFPAY ==
--- NOTE | 2018-11-16 07:00 | CT_ITS ---
STUDY: CT RIGHT SHOULDER REASON FOR EXAM: Female, 68 years old. Right shoulder osteoarthritis. Rotator cuff surgery aug 2018 RADIATION DOSAGE (If Supplied By Facility): CTDIvol = ( 26.99 ) mGy, DLP = ( 611.32 ) mGycm TECHNIQUE: The patient was scanned in a multi detector CT scanner. High resolution transaxial imaging was performed without the administration of intravenous contrast material. Sagittal and coronal images were reconstructed. Individualized dose optimization techniques were used for this CT. COMPARISON: MRI 07/20/2018. FINDINGS: There is moderate osteoarthritis, with moderate articular joint space narrowing and moderate osteoarthritic spurring. Normal glenoid rim, neck and visualized scapula. There is marked cephalad subluxation of the humeral head which actually impacts the undersurface of the acromion, as seen on images 36-40 of series 602 indicating complete absence of the supraspinatus tendon. Normal coracoid process. Normal visualized lateral clavicle. There is moderate osteoarthritis with articular joint space narrowing and with osteoarthritic spurring. There is a Type II morphology (curved), with a neutral orientation. Normal visualized muscles and soft tissue structures. CT/Extremity Upper without Contra IMPRESSION: No fractures. No dislocations. Moderate glenohumeral osteoarthritis. Moderate acromioclavicular osteoarthritis. Complete loss of glenohumeral space indicating complete rotator cuff tear. Electronically Signed: Babatunde Moss MD at 13:08 EST , Service support ,
== END ==
PROVIDERS: Family Provider Family Medicine; PCP Family Medicine; Referring Provider Specialist; Visit Provider Specialist
DX: M19.211 Secondary osteoarthritis, right shoulder (principal)
CPT/HCPCS: 73200

== ENCOUNTER → 2018-11-16 15:54 | Outpatient (CLI) | payer MEDICARE, OTHER, SELFPAY ==
[2018-11-16 17:46] LABS: Vitamin D,25 Hydroxy 34.7 ng/mL (29.95-100.01)
[2018-11-16 17:49] LABS: T4 Free Direct 0.99 ng/dL (0.76-1.46); Thyroid Stim Hormone (TSH) 0.85 uIU/mL (0.358-3.74)
== END ==
PROVIDERS: Family Provider Family Medicine; PCP Family Medicine; Referring Provider Family Medicine; Visit Provider Family Medicine
DX: E03.9 Hypothyroidism, unspecified (principal); E55.9 Vitamin D deficiency, unspecified; M19.211 Secondary osteoarthritis, right shoulder
CPT/HCPCS: 36415; 73200; 82306; 84439; 84443

== ENCOUNTER → 2018-12-12 12:29 | Outpatient (CLI) | payer MEDICARE, OTHER, SELFPAY ==
--- NOTE | 2018-12-12 12:37 | RAD_ITS ---
STUDY: X-RAY - RIGHT WRIST REASON FOR EXAM: Female, 68 years old. Right wrist pain. TECHNIQUE: 3 view(s) of the wrist were obtained. COMPARISON: None. FINDINGS: Normal visualized distal radius and ulna. Normal radiocarpal articulation. Normal distal radioulnar articulation. Normal carpal bones. There is mild sclerosis of the scaphoid trapezium articulation. There is mild degenerative arthrosis of the carpometacarpal articulation of the thumb. Normal second through fifth carpometacarpal articulations. Normal visualized metacarpal bones. The soft tissue structures are unremarkable. There is no demonstrated acute fracture. RAD/Wrist min 3 Views IMPRESSION: Mild degenerative arthrosis of the right wrist. Electronically Signed: Duran Howard MD at 9:18 EDT Tel , Service support ,
== END ==
PROVIDERS: Family Provider Family Medicine; PCP Family Medicine; Referring Provider Family Medicine; Visit Provider Family Medicine
DX: M25.531 Pain in right wrist (principal)
CPT/HCPCS: 73110

== ENCOUNTER → 2018-12-21 13:09 | Outpatient (CLI) | payer MEDICARE, OTHER, SELFPAY | PROVIDERS: Family Provider Family Medicine; PCP Family Medicine; Visit Provider Family Medicine | DX: R35.0 Frequency of micturition (principal) | CPT/HCPCS: 87086; 87088; 87186 ==

== ENCOUNTER → 2019-03-19 | Outpatient (CLI) | payer MEDICARE, OTHER, SELFPAY ==
[2019-01-18 08:01] VITALS: BMI 28.7
--- NOTE | 2019-03-19 14:23 | RAD_ITS ---
STUDY: X-RAY - CERVICAL SPINE REASON FOR EXAM: Female, 68 years old. Neck pain TECHNIQUE: 4 view(s) of the cervical spine were obtained. COMPARISON: None FINDINGS: There is no evidence of fracture or dislocation in the cervical spine. There is no evidence of subluxation on flexion or extension. The vertebral body heights are well-maintained. There are moderate degenerative changes in the mid to lower cervical spine with disc space narrowing and anterior osteophytes. This is most pronounced at C5/C6. The prevertebral soft tissues are unremarkable. There is no radiodense foreign body. RAD/Cerv Spine 4 or 5 Views IMPRESSION: No fracture or dislocation in the cervical spine. Moderate degenerative changes in the mid to lower cervical spine which is most pronounced at C5/C6. Electronically Signed: Neo May, at 16:03 EDT Tel , Service support ,
[2019-03-19 16:20] LABS: Mucous, Urine 0 SEEN /hpf (<or=2+)
[2019-03-19 17:18] LABS: Color, Urine Yellow (Yellow); Glucose, Dipstick Normal (Normal); Ketone-Dipstick Negative (Negative); Leukocyte Esterase-Dipstick 500 /ul (Negative); Nitrite-Dipstick Negative (Negative); Occult Blood-Urine 25 /ul (Negative); Protein-Dipstick Negative (Negative); Specific Gravity, Urine 1.015 (1.002-1.030); Urine Bilirubin Dipstick Negative (Negative); Urine Clarity Sl. Cloudy (Clear); Urine Urobilinogen Normal (Normal)
[2019-03-19 17:31] LABS: Bacteria 1+ /hpf (None Seen); Red Blood Cells-Urine 0-5 SEEN /hpf (0-5); Squamous Epithelial Cells - UA 0-5 SEEN /hpf (5-10); White Blood Cells 25-50 SEEN /hpf (0-5)
== END | disposition home or self-care (01) ==
PROVIDERS: Family Provider Family Medicine; PCP Family Medicine; Referring Provider Orthopaedic Surgery; Visit Provider Orthopaedic Surgery
DX: M54.2 Cervicalgia (principal); R30.0 Dysuria
CPT/HCPCS: 72050; 81001; 87086; 87088; 87186

== ENCOUNTER → 2019-03-27 | Outpatient (CLI) | payer MEDICARE, OTHER, SELFPAY ==
[2019-03-19 14:25] VITALS: BMI 28.7
--- NOTE | 2019-03-27 07:23 | MRI_ITS ---
HISTORY: Neck pain and left hand numbness and pain. EXAM/TECHNIQUE: MR Spine Cervical W/O Contrast: Multiplanar reformats provided. COMPARISON: 03/19/19 cervical spine radiographs. FINDINGS: # of images incl. paperwork: 247 No fracture or acute or concerning signal changes in the vertebrae. Multilevel disc space loss and degenerative endplate irregularity and signal changes most prominent at C5-6 and C6-7. Multilevel degenerative listhesis again demonstrated with grade 1 anterolisthesis of C4 on C5 and C7 on T1 and T1 on T2. Normal signal of the cervical spinal cord. Paraspinals soft tissues unremarkable. At C2-3, small broad-based disc osteophyte complex and mild facet degeneration causes only mild narrowing. At C3-4, right uncovertebral and facet osteophytes cause moderate right foraminal narrowing. Only mild narrowing of the spinal canal and left foramen. At C4-5, anterolisthesis and facet greater than uncovertebral joint osteophytes cause moderate to severe narrowing of the left foramen. Only mild right foraminal and spinal canal narrowing. At C5-6, vertebral body osteophytes with uncovertebral joint extension combine with facet osteophytes to cause high-grade right and moderate to severe left and mild spinal canal narrowing. At C6-7, left uncovertebral grade and facet osteophytes cause moderate to severe left foraminal narrowing. Only mild narrowing of the spinal canal and right foramen. At C7-T1 and T1-2 there is only mild narrowing. MRI/Spine Cervical (Routine) IMPRESSION: Prominent multilevel degenerative changes. Potential sources of left-sided radiculopathy include the left foramina of C4-5, C5-6, and C6-7. There is also high-grade right foraminal narrowing at C5-6. at 0929 Reported and signed by: Johnathon Yao MD Electronically Signed: Johnathon Yao, at 9:28 EDT Tel , Service support ,
[2019-03-27 09:00] LABS: Anion Gap 4 (5-15); BUN 21 mg/dL (7-18); BUN/Creat Ratio 23.9 RATIO (10-20); Calcium,Total 9.2 mg/dL (8.5-10.1); Chloride 108 mmol/L (98-107); Creatinine, Serum 0.88 mg/dL (0.55-1.02); EST Glomerular Filtration Rate 68 mL/min (>60); Est Glom Filt Rate - Afr Amer 82 mL/min (>60); Glucose 127 mg/dL (74-106); Potassium 3.7 mmol/L (3.5-5.1); Sodium Level 141 mmol/L (136-145); T4 Free Direct 0.96 ng/dL (0.76-1.46); Thyroid Stim Hormone (TSH) 5.25 uIU/mL (0.358-3.74)
== END | disposition home or self-care (01) ==
PROVIDERS: Family Provider Family Medicine; PCP Family Medicine; Referring Provider Orthopaedic Surgery; Visit Provider Orthopaedic Surgery
DX: M50.90 Cervical disc disorder, unspecified, unspecified cervical region (principal); M54.2 Cervicalgia; E03.9 Hypothyroidism, unspecified; E27.49 Other adrenocortical insufficiency
CPT/HCPCS: 36415; 72141; 80048; 84439; 84443

== ENCOUNTER 2019-03-29 14:00 | Outpatient (RCR) | payer MEDICARE, OTHER, SELFPAY ==
[2019-03-19 14:25] VITALS: BMI 28.7
--- NOTE | 2019-03-21 11:41 | HP.PTEVAL ---
Patient's Visit Information HARSHAD KRAMER is a 68 year old F referred to Physical Therapy by Saadia Gold MD with a diagnosis of L UE weakness. Date of Evaluation: 03/21/19 Physical Therapist: Efrem Ortega, PT, ATC - Visit Plan Frequency: 2x /Week Duration: 2-4 Weeks Plan: US to c/s, DTR, scap stab, UBE, and HEP - Subjective Findings: Pt reports she has had L arm numbness for about three months. Pt reports she was trimming trees above her head when this all started. Pt notes she has a lot of neck pain which she has had for years. Pt reports sleeping on her L side with her arm above her head causes increased pain. Pt reports no recent xrays, but notes she has an MRI scheduled in one week for her c/s. Pt reports sleep difficulty at this time secondary to pain. Pt is R hand dominant. Pt notes there is nothing she can do to help her L UE pain except for injections. Pt reports she has L hand weakness and often drops things secondary to hand weakness. 0/10 pain at rest, 1/10 pain at worst. - Pain L arm Pain Intensity (Out of 10): 0 Pain Intensity Range: 1 - Objective Neuro: L UE is hyposensitive to light touch. B bicepital reflex= 3/3. MMT: L shoulder flex and abd is 4-/5. All other UE MMT is 5/5 throughout. Creative Strategist strength: R= 15 #/F, L= 24 #/F. ROM: Pt is mmoderately limited with R rot, retraction, ext, and B SB. Minimally limited with all other ranges. Repeated movements:RPIS 10x2 had no effect. RRIS 10x2 peripheralized sx's. Palpation: Significant guarding in c/s - Goals Goal 1:: Decrease neck pain x 50% to aid with sleep Goal Time Frame: 2-4 Weeks Goal 2:: Decrease the frequency and intensity of L UE radiculopathy x 50% to aid with IADL's Goal Time Frame: 2-4 Weeks Goal 3:: Increase R UE strength x 1 grade to aid with IADL's Goal Time Frame: 2-4 Weeks Goal 4:: I with HEP Goal Time Frame: 2-4 Weeks - Rehabilitation Potential Physical Therapy Diagnosis: Pt has neck pain, L UE weakness, and limited c/s ROM secondary to degenerative changes in c/s Rehabilitation Potential: Good - Anticipated Interventions Patient/Client Instruction: Educate patient on: Condition, Plan of Care For the Purpose of:: To improve self management Therapeutic Exercise to Include: Strength training, Body mechanics, Postural training, Flexibilty training, Scapular Strength/Stabilization For the Purpose of:: To decrease pain, To increase ROM, To improve muscle performance and motor function Manual Therapy Techniques to Include: Soft tissue mobilization For the Purpose of:: To decrease pain, To increase ROM Ultrasound (thermal/non thermal): Yes For the Purpose of:: To decrease pain Thank you for the opportunity to evaluate your patient. For Medicare and Medicare HMO plans, please review the plan of care and approve it. It will need to be FAXED BACK to us at [phone] for Medicare purposes. For Medicare only, by signing this I certify the plan of care. Please let me know if there are questions or concerns regarding this plan of care. Physician Signature: Date:
== END 2019-03-29 19:00 | disposition home or self-care (01) ==
LOC: PT 14:00
PROVIDERS: Family Provider Family Medicine; PCP Family Medicine; Referring Provider Orthopaedic Surgery; Visit Provider Orthopaedic Surgery
DX: R29.898 Other symptoms and signs involving the musculoskeletal system (principal)
CPT/HCPCS: 97140; 97161

== ENCOUNTER → 2019-05-16 09:16 | Outpatient (CLI) | payer MEDICARE, OTHER, SELFPAY ==
[2019-04-23 14:53] VITALS: BMI 31.2
--- NOTE | 2019-05-16 09:18 | RAD_ITS ---
STUDY: X-RAY - CERVICAL SPINE REASON FOR EXAM: Female, 68 years old. Postop. TECHNIQUE: 2 view(s) of the cervical spine were obtained. COMPARISON: 03/19/2019 cervical spine radiographs. FINDINGS: Status post interval anterior fusion and discectomy C4, C5 and C6, and posterior fusion C4-T1 and C4-7 laminectomy. Hardware intact, no apparent fracture or osseous destruction. No acute soft tissue abnormality. Alignment is improved compared to the preoperative examination, now near anatomic. RAD/Cerv Spine 2 or 3 Views IMPRESSION: Interval anterior fusion and discectomy C4, C5 and C6, and posterior fusion C4-T1 and C4-7 laminectomy. No evidence of complication. Electronically Signed: Johnathon Yao, at 3:29 EDT Tel , Service support ,
== END ==
PROVIDERS: Family Provider Family Medicine; PCP Family Medicine; Referring Provider Physician Assistant; Visit Provider Physician Assistant
DX: Z98.1 Arthrodesis status (principal)
CPT/HCPCS: 72040

== ENCOUNTER → 2019-06-04 09:47 | Outpatient (CLI) | payer MEDICARE, OTHER, SELFPAY ==
[2019-05-16 09:27] VITALS: BMI 31.2
--- NOTE | 2019-06-04 09:49 | RAD_ITS ---
STUDY: X-RAY - CERVICAL SPINE REASON FOR EXAM: Female, 68 years old. Six-week postop TECHNIQUE: 2 view(s) of the cervical spine were obtained. COMPARISON: Prior study of 05/16/2019 FINDINGS: And AP open-mouth odontoid view was not obtained. Odontoid process appears normal on the lateral projection. There is an anterior fusion plate from C4 to C6 with disc spacers present at the C4-5 and C5-6 levels. There are posterior spinal fusion changes with rods and interpeduncular screws from C4 through T1. There is no evidence of fracture or subluxation. The visualized posterolateral spinous elements and prevertebral soft tissues appear within normal limits. RAD/Cerv Spine 2 or 3 Views IMPRESSION: Anterior spinal fusion from C4 to C6. Posterior spinal fusion with rods and interpeduncular screws from C4 to T1. Disc spaces are present at the C4-5 and C5-6 levels. There is no evidence of fracture or subluxation. Findings are stable in the interval. Electronically Signed: Johnathon Ruano MD at 17:07 EDT , Service support ,
== END ==
PROVIDERS: Family Provider Family Medicine; PCP Family Medicine; Referring Provider Orthopaedic Surgery; Visit Provider Orthopaedic Surgery
DX: M54.2 Cervicalgia (principal)
CPT/HCPCS: 72040

== ENCOUNTER 2019-07-14 12:45 | Emergency (ER) | payer MEDICARE, OTHER, SELFPAY ==
[2019-06-04 10:05] VITALS: BMI 31.2
[2019-07-14 12:46] VITALS: BP 143/89; PULSE 79; RESP 16; TEMP 36.6; BMI 30.9
--- NOTE | 2019-07-14 13:11 | ED.DCSUM_ITS ---
History of Present Illness <Perla Lawton - Last Filed: 07/14/19 13:34> Informant: Patient, Significant Other Occurred: Today Mechanism/Context: Trip Onset: Today Context: Sudden Onset Timing: Continuous Quality of Pain: Dull Location: left elbow and forearm Current Severity: Mild Maximum Severity: Moderate Worsened by: movement Relieved by: nothing Associated Symptoms: Negative for: Parasthesia, Weakness, Loss of Funtion Narrative: 68-year-old female presents with a laceration to her left forearm. It occurred just prior to arrival. She slipped and scraped her arm against the side of her door. This was at home. She did not fall to the ground. She is not having any significant pain in her elbow or forearm. She is right-hand dominant. Her tetanus is up-to-date. She is not on anticoagulation. Denies any other review of systems. Tetanus Immunization: <5 years Prior similar symptoms: No Recent Illness/Hospitalization: No <Shayan Webber - Last Filed: 07/14/19 13:51> Chief Complaint: Laceration Past Medical History - Family History Paternal Family History: Family History (Last Reviewed 03/14/18 @ 13:19 by Ann Miramontes) Other Heart disease Maternal Family History: Family History (Last Reviewed 03/14/18 @ 13:19 by Ann Miramontes) Other Heart disease <Perla Lawton - Last Filed: 07/14/19 13:34> Prior records reviewed: Yes Past Medical History: - - Polymyalgia rheumatica Surgical History: - - PCI of LAD, arthroscopic knee surgery, bilateral total hip replacement, hernia repair, right carpal tunnel surgery, cardiac ablation ?2, left lower extremity wound debridement. Smoking Status: Never smoker - Family History Paternal Family History: Family History (Last Reviewed 03/14/18 @ 13:19 by Ann Miramontes) Other Heart disease Family History: Reports: No pertinent history Maternal Family History: Family History (Last Reviewed 03/14/18 @ 13:19 by Ann Miramontes) Other Heart disease Family History: Reports: No pertinent history <Shayan Webber - Last Filed: 07/14/19 13:51> - Allergies and Home Meds Allergies/Adverse Reactions: Allergies adhesive tape Allergy (Verified 07/14/19 12:46) Rash pravastatin [From Pravachol] Allergy (Verified 07/14/19 12:46) MUSCLE PAIN cyclobenzaprine [From Flexeril] Adverse Reaction (Verified 07/14/19 12:46) EXTREME WEAKNESS NSAIDS (Non-Steroidal Anti-Inflamma Adverse Reaction (Verified 07/14/19 12:46) GI BLEED Primary Care Physician: Ebenezer Vann DO [Primary Care Provider] - Review of Systems All systems negative except as indicated General: Denies: Chills, Fever, Malaise, Subjective, Sweats, Weight loss, - Musculoskeletal: Denies: Swelling, Extremity Pain Skin: Reports: Wounds Neurological: Denies: Weakness, Parasthesia, Numbness <Shayan Webber - Last Filed: 07/14/19 13:51> Physical Exam Vital Signs/Narrative: Vital Signs Temp Pulse Resp BP 07/14/19 12:46 97.9 F 79 16 143/89 H <Perla Lawton - Last Filed: 07/14/19 13:34> Vital Signs/Narrative: Vital Signs Temp Pulse Resp BP 07/14/19 12:46 97.9 F 79 16 143/89 H Inital Vital Signs reviewed: Yes Left Forearm: - - 7 cm laceration to the left forearm lateral aspect just distal to the lateral epicondyles. There is no active bleeding. Patient has normal range of motion of her left shoulder, elbow and wrist actively. Radial pulse is normal. Certified Coding Specialist strength is equal bilaterally. Normal pronation and supination. General: Well nourished, Well developed Head: Normocephalic, Atraumatic Eyes: Perrl, EOMI ENT: No Trauma, Moist Mucous Membranes Neck: Nontender, Full ROM Cardiovascular: Regular rate, Regular rhythm Respiratory: No distress, CTA bilaterally, Chest nontender Abdomen: Soft, Nontender, Nondistended, Normal bowel sounds, No masses Back: Nontender Skin: No rash, Trauma - 7 cm laceration to the left forearm as described above Neurological: Alert, Oriented x3 Psychological: Normal affect <Shayan Webber - Last Filed: 07/14/19 13:51> Diagnostic/Tx/Re-eval - Medical Decision Making Patient was seen with Shayan mitchell with history and physical exam\\\ Patient has a curvilinear laceration to the lateral left forearm after fall no other complaints The laceration is curvilinear about 7 cm left proximal forearm, neurovascular function elbow wrist hand normal no signs of fracture no signs of dislocation foreign body or neurovascular injury discussed the above the patient she agrees with suturing, please the full note for details <ValentinPerla forbes - Last Filed: 07/14/19 13:34> - Medical Decision Making Laceration anesthetized thoroughly irrigated and observed and examined and explored. No foreign bodies, tendon or ligament injury or arterial bleeding. It was closed with sutures. See procedure note. 2 deep sutures were placed to hold wound and then 10 superficial skin sutures. Discussed proper wound care and patient was given signs of infection to monitor for. Advised to have removed in 10 days. Patient agreeable all questions answered and discharged <Shayan Webber - Last Filed: 07/14/19 13:51> Procedures - Lacerations No standard instances Depth: Sub Q Shape: Linear Prep: Sterile Conditions, Chlorhexadine Laceration Repair: Lidocaine with epi, Local, Wound explored Irrigated (ml): 120 Number of Sutures/Notus: 12 - 2 deep sutures and 10 superficial sutures Suture Information: Ethilon, Simple, 4-0 <Shayan Webber - Last Filed: 07/14/19 13:51> ED Disposition <Perryisidroeitan[place]anaarchie - Last Filed: 07/14/19 13:34> <Shayan Webber - Last Filed: 07/14/19 13:51> - Plan for ED Patient: Disposition: Home or Assisted Living Diagnosis: Laceration of forearm, left, complicated Instructions: LACERATION, Extrem (Suture, Staple or Tape) Referrals: Ebenezer Vann DO [Primary Care Provider] -
[2019-07-14 14:16] VITALS: BP 146/68; PULSE 67; RESP 16
== END 2019-07-14 14:17 | disposition home or self-care (01) ==
PROVIDERS: Emergency Provider Physician Assistant Medical; Family Provider Family Medicine; PCP Family Medicine
DX: S51.812A Laceration without foreign body of left forearm, initial encounter (principal); W01.0XXA Fall on same level from slipping, tripping and stumbling without subsequent striking against object, initial encounter; Y93.9 Activity, unspecified; Y92.9 Unspecified place or not applicable; M35.3 Polymyalgia rheumatica; Z79.82 Long term (current) use of aspirin; Z79.899 Other long term (current) drug therapy
CPT/HCPCS: 12002; 99282

== ENCOUNTER → 2019-07-18 10:28 | Outpatient (CLI) | payer MEDICARE, OTHER, SELFPAY ==
[2019-07-18 10:15] VITALS: BMI 30.9
--- NOTE | 2019-07-18 10:30 | RAD_ITS ---
STUDY: X-RAY - LEFT SHOULDER REASON FOR EXAM: Chronic pain, then fell. TECHNIQUE: 3 view(s) of the shoulder. COMPARISON: None. FINDINGS: Normal glenohumeral articulation. There is acromioclavicular arthrosis with undersurface osteophytes. Normal acromion. Normal humeral head and visualized proximal humerus. The soft tissue structures are unremarkable. Normal visualized pulmonary apex. RAD/Shoulder min 2 Views IMPRESSION: Acromioclavicular arthrosis. Electronically Signed: Wilmer Hu MD at 10:53 EST Tel , Service support ,
== END ==
PROVIDERS: Family Provider Family Medicine; PCP Family Medicine; Referring Provider Orthopaedic Surgery; Visit Provider Orthopaedic Surgery
DX: M25.512 Pain in left shoulder (principal)
CPT/HCPCS: 73030

== ENCOUNTER → 2019-07-23 14:05 | Outpatient (CLI) | payer MEDICARE, OTHER, SELFPAY ==
[2019-07-18 10:15] VITALS: BMI 30.9
--- NOTE | 2019-07-23 14:07 | RAD_ITS ---
HISTORY: Post op 12 weeks, two weeks ago pt. fell and is now having neck pain, was not having neck pain post op before the fall EXAMINATION/TECHNIQUE: XR Spine Cervical 2 views COMPARISON: 06/04/2019 FINDINGS: Stable postsurgical change. The cervical vertebra show normal height and alignment. C4-5 and C5-6 discectomy with interbody fusions and anterior plate fixation of these levels. Additional laminectomy with posterior fusion of the C4-T1 levels utilizing pedicle screws and connecting rods. Surgical hardware appears intact and intervertebral disc spacers show no migration. C6-7 moderate to marked disc space narrowing, unchanged. RAD/Cerv Spine 2 or 3 Views IMPRESSION: 1. Stable postoperative findings. Normal cervical vertebral alignment. 2. No fracture or acute osseous abnormality. at 2335 Reported and signed by: Rahul Palumbo MD Electronically Signed: Rahul Palumbo, at 23:33 EST Tel , Service support ,
== END ==
PROVIDERS: Family Provider Family Medicine; PCP Family Medicine; Referring Provider Orthopaedic Surgery; Visit Provider Orthopaedic Surgery
DX: M54.2 Cervicalgia (principal)
CPT/HCPCS: 72040

== ENCOUNTER → 2019-07-26 07:17 | Outpatient (CLI) | payer MEDICARE, OTHER, SELFPAY ==
[2019-07-18 10:15] VITALS: BMI 30.9
[2019-07-23 14:21] VITALS: BMI 30.9
--- NOTE | 2019-07-26 07:20 | MRI_ITS ---
STUDY: MRI LEFT SHOULDER REASON FOR EXAM: Female, 68 years old. The patient presents with a history of trauma sustained during a fall 1 month prior, complaining of continuous pain accentuated with motion. TECHNIQUE: Standardized fat and water weighted pulse sequences were obtained in all 3 orthogonal planes. COMPARISON: None. FINDINGS: There is a large full-thickness tear of the supraspinatus tendon which is detached from the humeral head with medial retraction of the torn tendon edge to the superior margin of the humeral head. There is a delamination tear of the articular surface of the retracted supraspinatus tendon. Full thickness full width tendon tear measures 3.5 cm in its mediolateral dimension. There is a full-thickness tear , partial width tear of the anterior leading edge of the supraspinatus tendon which is detached from the humeral head and medially retracted approximately 1.4 cm. The central posterior aspect of the infraspinatus tendon remains intact. There is an intratendinous tear with an musculotendinous cyst within the infraspinatus muscle (coronal proton density fat sat series 5, image 18; sagittal T2 series 7, image 10; coronal T2 fat sat series 6, image 18). There is severe tendinosis of the subscapularis tendon with tendon thickening and intrasubstance degeneration (axial proton density fat sat series 3, image 13; sagittal T2 series 7, image 11 with a horizontal tear of the superior tendinous slips (sagittal T2 series 7, image 11). Normal teres minor tendon. There is greater than a 50% fatty muscular atrophy of the supraspinatus muscle (Goutallier Stage IV). There is greater than a 50% fatty muscular atrophy of the infraspinatus muscle (Goutallier Stage IV). Normal subscapularis muscle. Normal teres minor muscle. There is mild osteoarthritis of the glenohumeral articulation with cephalad migration of the humeral head, narrowing the subacromial outlet to 4 mm. There is a glenohumeral joint effusion with distention of the subscapularis recess. There is a subcortical cyst at the insertion of the infraspinatus tendon. Normal biceps labral complex. There is a partial tear of the biceps mary jane (sagittal T2 series 7, image 13; axial proton-density fat-sat series 3, image 12), but without a subluxation or dislocation of the intracapsular long biceps tendon. There is a type II SLAP tear of the superior labrum (coronal T2 fat sat series 6, image 13). Normal anterior inferior and posterior inferior katie. Normal capsulo- ligamentous complex. Normal rotator interval. There is severe hypertrophic osteoarthritis of the acromioclavicular articulation with impingement upon the musculotendinous junction of the supraspinatus muscle. There is a Type II morphology (curved), with a neutral orientation. There is fluid distention of the subacromial-subdeltoid bursa, which communicates with the glenohumeral joint, through a rotator cuff tear. Normal visualized coracohumeral and coracoacromial ligaments. Normal quadrilateral space. Normal axillary space. Normal deltoid muscle. Normal trapezius muscle. MRI/Upper Ext Joint Only(Routine) IMPRESSION: 1. Large full-thickness, full width tear of the supraspinatus tendon, as described above. 2. Full-thickness, partial width tear of the anterior tendinous insertion of the infraspinatus tendon. 3. Musculotendinous split tear with an intratendinous cyst within the infraspinatus muscle. 4. 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 5. Subscapularis tendinosis with a horizontal tear of the superior tendinous slips. 6. Glenohumeral arthrosis with cephalad migration of the humeral head and with subchondral cyst at the site of insertion of the infraspinatus tendon. 7. Glenohumeral joint effusion with distention of the subscapularis recess and fluid communication with the subacromial-subdeltoid bursa. 8. Partial sprain of the biceps mary jane but without a dislocation of the intracapsular long biceps tendon. 9. 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 Electronically Signed: Gael Zuñiga DO at 10:02 EST Tel , Service support ,
== END ==
PROVIDERS: Family Provider Family Medicine; PCP Family Medicine; Referring Provider Orthopaedic Surgery; Visit Provider Orthopaedic Surgery
DX: S46.012A Strain of muscle(s) and tendon(s) of the rotator cuff of left shoulder, initial encounter (principal)
CPT/HCPCS: 73221

== ENCOUNTER → 2019-11-12 09:13 | Outpatient (CLI) | payer MEDICARE, OTHER, SELFPAY ==
[2019-08-13 14:25] VITALS: BMI 30.9
== END ==
PROVIDERS: PCP Family Medicine; Visit Provider Family Medicine
DX: R30.0 Dysuria (principal)
CPT/HCPCS: 87086; 87088; 87186

== ENCOUNTER → 2019-11-19 12:34 | Outpatient (CLI) | payer MEDICARE, OTHER, SELFPAY ==
[2019-11-19 12:28] VITALS: BMI 30.9
--- NOTE | 2019-11-19 12:35 | RAD_ITS ---
STUDY: X-RAY - CERVICAL SPINE REASON FOR EXAM: Female, 69 years old. F/U cervical spine surgery 04/29/19 TECHNIQUE: 2 view(s) of the cervical spine were obtained. COMPARISON: 07/23/2019. FINDINGS: There are degenerative changes of the anterior atlantoaxial articulation. Normal odontoid process. There is straightening of the normal cervical lordosis. The patient is status post anterior fusion at C4-C6. There is posterior fusion from C4 to T1. There is mild spondylosis at C2-C3, C3-C4 and, C6-C7 and C7-T1 with mild narrowing of disc spaces. No acute fracture. The soft tissue structures are unremarkable. RAD/Cerv Spine 2 or 3 Views IMPRESSION: Postoperative changes as described. Normal alignment. No acute fracture. Electronically Signed: Aneglica Lizama MD at 0:32 EDT , Service support ,
== END ==
PROVIDERS: PCP Family Medicine; Referring Provider Orthopaedic Surgery; Visit Provider Orthopaedic Surgery
DX: Z98.1 Arthrodesis status (principal)
CPT/HCPCS: 72040

== ENCOUNTER → 2019-11-25 13:42 | Outpatient (CLI) | payer MEDICARE, OTHER, SELFPAY ==
[2019-08-13 14:25] VITALS: BMI 30.9
[2019-11-19 12:28] VITALS: BMI 30.9
--- NOTE | 2019-11-25 13:47 | BI_ITS ---
MAMMOGRAPHY - BILATERAL SCREENING REASON FOR EXAM: Female, 69 years old. Routine annual screening examination. PERTINENT HISTORY: Sisters with breast cancer. TECHNIQUE: Digital bilateral breast latisha (3D mammographic acquisition) in the CC and MLO projections. 2-D mediolateral oblique (MLO) and craniocaudad (CC) views of both breasts were obtained. CAD: Full Field Digital Mammography with Computer Added Detection was performed. COMPARISON: Comparison is made with prior study dated November 02, 2018 and October 13, 2017. FINDINGS: Breast Composition: There are scattered areas of fibroglandular density. There are no dominant masses or suspicious calcifications. Stable 6.5 mm well-defined nodule in the axillary region of the left breast is most likely represents a small lymph node. No other significant abnormalities are identified. There has been no significant change since the prior study. BI/SCREEN MAMM (CAD) W/LATISHA BILAT IMPRESSION: Stable bilateral screening mammogram. Yearly follow-up mammogram recommended. (A) ASSESSMENT CATEGORY: BIRADS Category 2: Benign. A letter regarding these results will be sent to the patient by the facility within 30 days. Approximately 10% of breast cancers are not detected by mammography. A normal mammogram should not delay biopsy of a clinically suspicious abnormality. [id number] Electronically Signed: Ciro Reece, at 14:39 EDT , Service support ,
== END ==
PROVIDERS: PCP Family Medicine; Referring Provider Obstetrics & Gynecology; Visit Provider Obstetrics & Gynecology
DX: Z12.31 Encounter for screening mammogram for malignant neoplasm of breast (principal)
CPT/HCPCS: 77063; 77067

== ENCOUNTER → 2019-12-03 16:04 | Outpatient (CLI) | payer MEDICARE, OTHER, SELFPAY ==
[2019-11-19 12:28] VITALS: BMI 30.9
== END ==
PROVIDERS: PCP Family Medicine; Visit Provider Family Medicine
DX: N39.0 Urinary tract infection, site not specified (principal)
CPT/HCPCS: 87086; 87088

== ENCOUNTER → 2020-02-18 13:29 | Outpatient (CLI) | payer MEDICARE, OTHER, SELFPAY ==
[2020-02-11 09:31] VITALS: BMI 30.9
--- NOTE | 2020-02-18 13:30 | RAD_ITS ---
STUDY: X-RAY - LUMBAR SPINE REASON FOR EXAM: Female, 69 years old. LOW BACK PAIN TECHNIQUE: 4 view(s) of the lumbar spine were obtained. One AP views 3 lateral views. COMPARISON: April 03, 2018 lumbar spine x-ray FINDINGS: There is an exaggerated lumbar lordosis. There is dextroscoliosis centered at L1-L2 stable since prior study. There is slight anterolisthesis at the level of L3-L4 and L4-L5. Unchanged since prior study. There is a stable appearance on flexion and extension views provided. There is disc space narrowing L5-S1 with vacuum phenomenon. There is atherosclerotic calcification of the abdominal aorta without a demonstrated aneurysm. There are bilateral hip arthroplasties. RAD/L/S Spine Min 4 Views IMPRESSION: Scoliosis. Degenerative change no visualized instability on flexion and extension. Slight anterolisthesis L3 on L4 and L4-5. Multilevel degenerative change. Electronically Signed: Rebecca Carrasco MD at 6:11 EDT Tel , Service support ,
--- NOTE | 2020-02-18 14:19 | RAD_ITS ---
STUDY: X-RAY - CERVICAL SPINE REASON FOR EXAM: Female, 69 years old. 1 YEAR FOLLOW UP TECHNIQUE: 2 view(s) of the cervical spine were obtained. COMPARISON: November 19, 2019 cervical spine FINDINGS: There are degenerative changes of the anterior atlantoaxial articulation. Normal odontoid process. Normal cervical lordosis. There is anterior spinal fusion plate C4-C5 and C6. There are posterior spinal rods and pedicle screws C3-C4 and C5.. There are disc spacers. There is a cortical screw at T1. At C6-C7 there is disc space narrowing. The soft tissue structures are unremarkable. RAD/Cerv Spine 2 or 3 Views IMPRESSION: Status post spinal fusion stable in appearance when compared to prior study. Electronically Signed: Rebecca Carrasco MD at 6:18 EDT Tel , Service support ,
== END ==
PROVIDERS: PCP Family Medicine; Referring Provider Orthopaedic Surgery; Visit Provider Orthopaedic Surgery
DX: M54.2 Cervicalgia (principal); M54.5 Low back pain
CPT/HCPCS: 72040; 72110

== ENCOUNTER → 2020-02-25 11:04 | Outpatient (CLI) | payer MEDICARE, OTHER, SELFPAY ==
[2020-02-18 14:01] VITALS: BMI 30.9
--- NOTE | 2020-02-25 11:06 | MRI_ITS ---
STUDY: MRI LUMBAR SPINE WITHOUT CONTRAST REASON FOR EXAM: Female, 69 years old. low back pain with standing,walking long distance,bending TECHNIQUE: Standardized fat and water weighted pulse sequences were obtained in the sagittal and axial planes. COMPARISON: 01/03/2018 report only FINDINGS: T12-L1: Bulging annulus and bilateral facet hypertrophy with mild central canal stenosis. Normal lumbar lordosis. There is no substantial scoliosis. Normal conus medullaris that terminates at the L1 level. L1-2: Bulging annulus and bilateral facet hypertrophy with mild central canal stenosis. L2-3: Bulging annulus and bilateral facet and ligamentum flavum hypertrophy with mild to moderate central canal stenosis. L3-4: Bulging annulus and bilateral facet hypertrophy with moderate central canal stenosis and moderate right and mild left foraminal stenoses. L4-5: Bulging annulus and bilateral facet hypertrophy with mild central canal and moderate left and mild right foraminal stenoses. L5-S1: Bulging annulus and central disc protrusion with bilateral facet hypertrophy. Severe right and mild left foraminal stenoses. Normal visualized sacral ala. Normal visualized paraspinous soft tissue structures. MRI/Spine Lumbar (Routine) IMPRESSION: Multilevel degenerative disease as described. Severe right foraminal stenosis at the L5-S1 level. Electronically Signed: Evans Dubon MD at 12:25 EDT Tel , Service support ,
== END ==
PROVIDERS: PCP Family Medicine; Referring Provider Orthopaedic Surgery; Visit Provider Orthopaedic Surgery
DX: M54.16 Radiculopathy, lumbar region (principal)
CPT/HCPCS: 72148

== ENCOUNTER → 2020-03-09 10:35 | Outpatient (CLI) | payer MEDICARE, OTHER, SELFPAY ==
[2020-02-18 14:01] VITALS: BMI 30.9
== END ==
PROVIDERS: PCP Family Medicine; Visit Provider Family Medicine
DX: Z20.828 Contact with and (suspected) exposure to other viral communicable diseases (principal)
CPT/HCPCS: 87635; G2023; U0003

== ENCOUNTER 2020-04-13 10:30 | Outpatient (RCR) | payer MEDICARE, OTHER, SELFPAY ==
[2020-02-18 14:01] VITALS: BMI 30.9
--- NOTE | 2020-02-24 15:34 | HP.PTEVAL_ITS ---
Patient's Visit Information HARSHAD KRAMER is a 69 year old F referred to Physical Therapy by Dr. Saadia Gold MD with a diagnosis of LBP, L groin Pain. Date of Evaluation: 02/24/20 Physical Therapist: Phi Pastor, DPT, OCS, CSCS - Visit Plan Frequency: 2x /Week Duration: 4-6 Weeks Plan: Pool therapy for : core strength. hip strength including rotations. LE and postural strength including NS. stretch HS - Subjective Old compression fracture from a 4 rose injury. L45 back early . No problem recently. H/o cervical fusio also. Now is just chronically worsening. Worse if stadn too longs B. Not sciatic. Walking is not as bad if she stays upright. Sitting is OK. Intermittent L groin pain but not in 3 weeks, hard to lift leg when it is there. Has had x rays years ago and hip was OK. B KRZYSZTOF 2014. Sleep is OK. Needs rev TSA on R. Activities : anything standing or bending too long is limited. Gardening and working in the yard most notable. Basic aDLs are getting done - Pain LBP Pain Intensity (Out of 10): 1 Pain Intensity Range: 0, 6 Comment: standing L groin Pain Intensity (Out of 10): 1 Pain Intensity Range: 0, 6 - Objective Walks with slight B trendelenberg gait but I on firm flat surface. Trasnfers I. LB AROM mod limitations in flexiona dn extension and min in B SB. No increased pain except with extension. HS, quads, ITB mod tight B. reflexes 2/3 patella and achilles. sensation WNL to gross light touch. LE strength. hip rotation R 3+ adn L 4-. hip flexion 4-. abd/ ext R 4-, L 4. knee flexiona dn ext 4+. ankle AROM 4+ B. - YAYO and FADDIR. - L hip scouring. - slump and SLR - Goals Goal 1:: Stadn at counter to cook without increasing pain Goal Time Frame: 4-6 Weeks Goal 2:: Pain 1/10 at worst adn 75% improved Goal Time Frame: 4-6 Weeks Goal 3:: Patient I in approp HEP to minimize future problems Goal Time Frame: 4-6 Weeks Goal 4:: Oswestry <12% disability Goal Time Frame: 4-6 Weeks - Rehabilitation Potential Physical Therapy Diagnosis: LBP degenerative changes. Rehabilitation Potential: Fair - Anticipated Interventions Patient/Client Instruction: Educate patient on: Condition, Plan of Care For the Purpose of:: To decrease pain, To increase ROM, To improve nutrient delivery to tissue, To improve muscle performance and motor function, To i ncrease tolerance to activity/condition/position Therapeutic Exercise to Include: Strength training, Postural training, Flexibilty training, Neuromotor development, In an aquatic setting, Passive ROM, Active ROM, Dynamic Lumbar Stabilization For the Purpose of:: To decrease pain, To increase ROM, To improve nutrient delivery to tissue, To improve muscle performance and motor function, To increase tolerance to activity/condition/position, To improve ability of physical actions for home/community/work/leisure Thank you for the opportunity to evaluate your patient. For Medicare and Medicare HMO plans, please review the plan of care and approve it. It will need to be FAXED BACK to us at [phone] for Medicare purposes. For Medicare only, by signing this I certify the plan of care. Please let me know if there are questions or concerns regarding this plan of care. Physician Signature: Date:
--- NOTE | 2020-03-24 11:38 | HP.PTREVAL_ITS ---
Dr. Saadia Gold MD, It has been my pleasure to treat HARSHAD KRAMER over the last 5 visits for LBP, L groin Pain. Please see the progress note below for an update on the physical therapy plan of care! Subjective: Had caudal block last which helped. Has not done a lot since then. Helped 75%. Was improving slowly prior to that with improved stren gth and posture. Doing HEP at home to stretch out LE. Feels like needs to cotnionue in water. Will try to get better in water and then continue via HEP. Pain over weekend was 2/10 in middle of LB Groin pain has not been a problem Objective/Function: ROM LB mod deficits ext with stretching anterior hips and stretch mid LB. Flexion min limitations, SB OK. Walks well. Tightness present hip flexors and IT and piriformis. Overall improving and appropriate to cotninue POC Plan Plan: Continue water therapy 2x/week emphasizing LB ROM, hip flexor, piriformis and IT stretching adn progression to HEP with core strength. Fair prognosis and goals still appropriate as POC got interrupted due to covid Goals Goal 1:: Stadn at counter to cook without increasing pain Goal Time Frame: 4-6 Weeks Goal 2:: Pain 1/10 at worst adn 75% improved Goal Time Frame: 4-6 Weeks Goal Progress: Progressing Goal 3:: Patient I in approp HEP to minimize future problems Goal Time Frame: 4-6 Weeks Goal 4:: Oswestry <12% disability Goal Time Frame: 4-6 Weeks Anticipated Interventions Patient/Client Instruction: Educate patient on: Condition, Plan of Care For the Purpose of:: To decrease pain, To increase ROM, To improve nutrient delivery to tissue, To improve muscle performance and motor function, To increase tolerance to activity/condition/position Therapeutic Exercise to Include: Strength training, Postural training, Flexibilty training, Neuromotor development, In an aquatic setting, Passive ROM, Active ROM, Dynamic Lumbar Stabilization For the Purpose of:: To decrease pain, To increase ROM, To improve nutrient delivery to tissue, To improve muscle performance and motor function, To increase tolerance to activity/condition/position, To improve ability of physical actions for home/community/work/leisure Please do not hesitate to contact me at [phone] by phone or if you have questions or concerns regarding this new plan of care! Sincerely, Phi Pastor, DPT, OCS, CSCS
--- NOTE | 2020-04-13 11:14 | HP.PTREVAL ---
Dr. Saadia Gold MD, It has been my pleasure to treat HARSHAD KRAMER over the last 11 visits for LBP, L groin Pain. Please see the progress note below for an update on the physical therapy plan of care! Subjective: No groin pain. Picked corn over weekend adn did well and picked. Wants to continue via HEP vs more pool therapy. Objective/Function: Good aROM of L/S without pain today, walking well and without antalgia. P happy with progress and plans to cotninue at home via HEP. Plan Plan: f/u one month to ensure maitnenance of gaols with HEP. Goals Goal 1:: Stadn at counter to cook without increasing pain Goal Time Frame: 4-6 Weeks Goal Progress: Goal Met Goal 2:: Pain 1/10 at worst adn 75% improved Goal Time Frame: 4-6 Weeks Goal Progress: Progressing Goal 3:: Patient I in approp HEP to minimize future problems Goal Time Frame: 4-6 Weeks Goal Progress: Goal Met Goal 4:: Oswestry <12% disability Goal Time Frame: 4-6 Weeks Goal Progress: Goal Met Anticipated Interventions Patient/Client Instruction: Educate patient on: Condition, Plan of Care For the Purpose of:: To decrease pain, To increase ROM, To improve nutrient delivery to tissue, To improve muscle performance and motor function, To increase tolerance to activity/condition/position Therapeutic Exercise to Include: Strength training, Postural training, Flexibilty training, Neuromotor development, In an aquatic setting, Passive ROM, Active ROM, Dynamic Lumbar Stabilization For the Purpose of:: To decrease pain, To increase ROM, To improve nutrient delivery to tissue, To improve muscle performance and motor function, To increase tolerance to activity/condition/position, To improve ability of physical actions for home/community/work/leisure Please do not hesitate to contact me at [phone] by phone or if you have questions or concerns regarding this new plan of care! Sincerely, Phi Pastor, DPT, OCS, CSCS
--- NOTE | 2020-04-13 11:17 | HP.PTREVAL ---
Dr. Saadia Gold MD, It has been my pleasure to treat HARSHAD KRAMER over the last 11 visits for LBP, L groin Pain. Please see the progress note below for an update on the physical therapy plan of care! Subjective: No groin pain. Picked corn over weekend adn did well and picked. Wants to continue via HEP vs more pool therapy. Objective/Function: Good aROM of L/S without pain today, walking well and without antalgia. P happy with progress and plans to cotninue at home via HEP. Plan Plan: After today's pool appointment, f/u one month to ensure maitnenance of gaols with HEP. Goals Goal 1:: Stadn at counter to cook without increasing pain Goal Time Frame: 4-6 Weeks Goal Progress: Goal Met Goal 2:: Pain 1/10 at worst adn 75% improved Goal Time Frame: 4-6 Weeks Goal Progress: Progressing Goal 3:: Patient I in approp HEP to minimize future problems Goal Time Frame: 4-6 Weeks Goal Progress: Goal Met Goal 4:: Oswestry <12% disability Goal Time Frame: 4-6 Weeks Goal Progress: Goal Met Goal 5:: Maintain improvments with HEP vs pool therapy Goal Time Frame: 2-4 Weeks Anticipated Interventions Patient/Client Instruction: Educate patient on: Condition, Plan of Care For the Purpose of:: To decrease pain, To increase ROM, To improve nutrient delivery to tissue, To improve muscle performance and motor function, To increase tolerance to activity/condition/position Therapeutic Exercise to Include: Strength training, Postural training, Flexibilty training, Neuromotor development, In an aquatic setting, Passive ROM, Active ROM, Dynamic Lumbar Stabilization For the Purpose of:: To decrease pain, To increase ROM, To improve nutrient delivery to tissue, To improve muscle performance and motor function, To increase tolerance to activity/condition/position, To improve ability of physical actions for home/community/work/leisure Please do not hesitate to contact me at [phone] by phone or if you have questions or concerns regarding this new plan of care! Sincerely, Phi Pastor, DPT, OCS, CSCS
--- NOTE | 2020-06-18 10:19 | HP.PT.NRP ---
HARSHAD KRAMER was seen in my office for initial evaluation on 02/24/20. The following Plan of Care was established for this patient: Initial Frequency: 2x /Week Initial Duration: 4-6 Weeks Patient/Client Instruction: Educate patient on: Condition, Plan of Care For the Purpose of:: To decrease pain, To increase ROM, To improve nutrient delivery to tissue, To improve muscle performance and motor function, To increase tolerance to activity/condition/position Therapeutic Exercise to Include: Strength training, Postural training, Flexibilty training, Neuromotor development, In an aquatic setting, Passive ROM, Active ROM, Dynamic Lumbar Stabilization For the Purpose of:: To decrease pain, To increase ROM, To improve nutrient delivery to tissue, To improve muscle performance and motor function, To increase tolerance to activity/condition/position, To improve ability of physical actions for home/community/work/leisure This patient was last seen in our office 04/13/20. Pertinent comments regarding their Physical therapy will appear below: Pt seen 11 visits of aquatic therapy and was 80% better. Was to f.u one month later but did not schedule or attend. I will discontinue due to nonattendance. At this point I will be discontinuing this patient from physical therapy. I would be happy to see this patient again in the future if found appropriate by the physician. Thank you! Phi Pastor, DPT, OCS, CSCS
== END 2020-04-13 19:00 | disposition home or self-care (01) ==
LOC: PT 10:30
PROVIDERS: PCP Family Medicine; Referring Provider Orthopaedic Surgery; Visit Provider Orthopaedic Surgery
DX: M54.5 Low back pain (principal); R10.32 Left lower quadrant pain
CPT/HCPCS: 97113; 97162; 97164

== ENCOUNTER → 2020-10-09 06:40 | Outpatient (CLI) | payer MEDICARE, OTHER, SELFPAY ==
[2020-05-19 10:27] VITALS: BMI 32.1
--- NOTE | 2020-10-09 06:41 | MRI_ITS ---
STUDY: MRI CERVICAL SPINE WITHOUT CONTRAST REASON FOR EXAM: Female, 70 years old. Neck pain,prior surgery TECHNIQUE: Standardized fat and water weighted pulse sequences were obtained in the sagittal and axial planes. COMPARISON: Cervical spine x-rays 10/06/2020 FINDINGS: Normal foramen magnum and brainstem-cervical cord junction. Normal craniovertebral junction. Normal anterior atlantoaxial articulation. Normal odontoid process. Decreased cervical lordosis. Normal vertebral bodies and posterior osseous elements. C2-3: Normal endplates. Normal disc height, signal and morphology. Normal central canal and intervertebral neural foramina. C3-4: Normal endplates. Normal disc height, signal and morphology. Normal central canal and intervertebral neural foramina. C4-5: Status post posterior fusion spanning C4-T1. Status post anterior fusion of C4-5.. Normal central canal. Moderate left neuroforaminal stenosis secondary to bony hypertrophy C5-6: Status post anterior fusion of C5-6.. Normal central canal. Mild to moderate left neuroforaminal encroachment secondary to bony hypertrophy. C6-7: Normal endplates. Narrowed disc height, signal and normal morphology. Normal central canal. Mild bilateral neuroforaminal encroachment.. C7-T1: Grade 1 spondylolisthesis Normal endplates. Normal disc height, signal and minimal bulging disc osteophyte complex.. Normal central canal and intervertebral neural foramina. Normal cervical cord. Normal visualized soft tissue structures No significant change since previous radiographic study given differences in imaging modalities.. MRI/Spine Cervical (Routine) IMPRESSION: Status post multilevel anterior and posterior fusion.. No acute fracture or other significant bony pathology. Mild bilateral neuroforaminal encroachment at C6-7 secondary to bony hypertrophy. Left neuroforaminal stenosis at C4-5 and C5-C6 secondary to bony hypertrophy Electronically Signed: Omega Jacobson MD at 16:37 EST , Service support ,
[2020-10-09 08:51] LABS: CREATININE FINGERSTICK 1.1 mg/dL (0.55-1.02)
== END ==
PROVIDERS: PCP Family Medicine; Referring Provider Orthopaedic Surgery; Visit Provider Orthopaedic Surgery
DX: Z98.890 Other specified postprocedural states (principal)
CPT/HCPCS: 72141

== ENCOUNTER → 2020-11-16 11:53 | Outpatient (CLI) | payer MEDICARE, OTHER, SELFPAY ==
[2020-11-16 13:36] LABS: Anion Gap 5 (5-15); BUN 17 mg/dL (7-18); BUN/Creat Ratio 20.3 RATIO (10-20); Calcium,Total 9.1 mg/dL (8.5-10.1); Chloride 107 mmol/L (98-107); Creatinine, Serum 0.84 mg/dL (0.55-1.02); EST Glomerular Filtration Rate 71 mL/min (>60); Est Glom Filt Rate - Afr Amer 86 mL/min (>60); Glucose 78 mg/dL (74-106); Sodium Level 142 mmol/L (136-145); T4 Free Direct 1.12 ng/dL (0.76-1.46); Thyroid Stim Hormone (TSH) 0.46 uIU/mL (0.358-3.74)
== END ==
PROVIDERS: PCP Family Medicine
DX: E03.9 Hypothyroidism, unspecified (principal)
CPT/HCPCS: 36415; 80048; 84439; 84443

== ENCOUNTER → 2020-11-30 11:49 | Outpatient (CLI) | payer MEDICARE, OTHER, SELFPAY ==
--- NOTE | 2020-11-30 11:53 | BI_ITS ---
MAMMOGRAPHY - BILATERAL SCREENING REASON FOR EXAM: Female, 70 years old. Routine annual screening examination. PERTINENT HISTORY: Sisters with breast cancer. TECHNIQUE: Digital bilateral breast latisha (3D mammographic acquisition) in the CC and MLO projections. 2-D mediolateral oblique (MLO) and craniocaudad (CC) views of both breasts were obtained. CAD: Full Field Digital Mammography with Computer Added Detection was performed. COMPARISON: Comparison is made with prior study from 11/25/2019 and 11/02/2018. FINDINGS: Breast Composition: There are scattered areas of fibroglandular density. There are no dominant masses or suspicious calcifications. Stable small benign-appearing bilateral axillary lymph nodes. Stable 6.5 mm well-defined nodule in the axillary region of the left breast suggestive of a small lymph node. No other significant abnormalities are identified. There has been no significant change since the prior study. BI/SCRN MAMM (CAD)W/LATISHA BILAT IMPRESSION: Stable bilateral screening mammogram. Yearly follow-up mammogram recommended. (A) ASSESSMENT CATEGORY: BIRADS Category 2: Benign. A letter regarding these results will be sent to the patient by the facility within 30 days. Approximately 10% of breast cancers are not detected by mammography. A normal mammogram should not delay biopsy of a clinically suspicious abnormality. [id number] Electronically Signed: Ciro Reece MD at 12:45 EDT , Service support ,
== END ==
PROVIDERS: PCP Family Medicine; Referring Provider Obstetrics & Gynecology; Visit Provider Obstetrics & Gynecology
DX: Z12.31 Encounter for screening mammogram for malignant neoplasm of breast (principal)
CPT/HCPCS: 77063; 77067

== ENCOUNTER → 2020-12-29 09:40 | Outpatient (CLI) | payer MEDICARE, OTHER, SELFPAY ==
[2020-12-29 10:44] LABS: Vitamin B12 498 pg/mL (211-911); Vitamin D,25 Hydroxy 42.2 ng/mL
[2020-12-29 11:23] LABS: Ferritin 35 ng/mL (8-252); Iron Binding Capacity,Total 321 ug/dL (250-450)
== END ==
PROVIDERS: PCP Family Medicine; Referring Provider Family Medicine; Visit Provider Family Medicine
DX: D64.9 Anemia, unspecified (principal); E55.9 Vitamin D deficiency, unspecified
CPT/HCPCS: 36415; 82306; 82607; 82728; 82746; 83550

== ENCOUNTER → 2021-01-26 09:49 | Outpatient (CLI) | payer MEDICARE, OTHER, SELFPAY ==
--- NOTE | 2021-01-26 10:05 | BD_ITS ---
STUDY: DUAL ENERGY X-RAY ABSORPTIOMETRY / DXA REASON FOR EXAM: Female, 70 years old. Patient is postmenopausal. TECHNIQUE: Bone Mineral Density (BMD) measurements of lumbar spine and left forearm were obtained. Patient has a history of lateral hip replacement. COMPARISON: Comparison is made with prior study dated 10/10/2017. FINDINGS: Lumbar Spine (L1-L4): g/cm2 (1.304) / T-score (1.1) / Z-score (2.8) Findings are suggestive of normal bone density with a low fracture risk. Left Forearm: g/cm2 (0.688) / T-score (-2.1) / Z-score (-0.2) The T-Scores on the most recent prior examination were: Lumbar Spine (L1-L4): There has been worsening of bone density since the previous examination. BD/Dexa Bone Density Study IMPRESSION: The patient is considered osteopenic as outlined below according to World Marcel Organization (WHO) criteria with a moderate fracture risk. There has been worsening of bone density since the previous examination. Reference Information: The T-score is the number of standard deviations above or below the standard which is normal for young adults at their peak bone mineral density. The World Health Organization (WHO) interprets the T-scores as follows: Above -1 Normal bone density Between -1 and -2.5 Osteopenia Equal to / or below -2.5 Osteoporosis As a practical clinical guideline, osteopenia may be graded as follows: Mild -1 through -1.5 Moderate -1.6 through -2.0 Severe -2.1 through -2.4 The Z-score is the number of standard deviations above or below age-matched controls. A Z-score of less than -1.5 would be considered abnormal. References: 1. NIH Osteoporosis and Related Bone Diseases www osteo.org 2. International Society for Clinical Densitometry www iscd.org 3. National Osteoporosis Foundation www nof.org Electronically Signed: Ciro Reece MD at 13:01 EDT , Service support ,
== END ==
PROVIDERS: PCP Family Medicine; Referring Provider Family Medicine; Visit Provider Family Medicine
DX: Z78.0 Asymptomatic menopausal state (principal); Z79.52 Long term (current) use of systemic steroids
CPT/HCPCS: 77080

== ENCOUNTER → 2021-05-02 14:34 | Outpatient (CLI) | payer MEDICARE, OTHER, SELFPAY | PROVIDERS: PCP Family Medicine; Referring Provider Physician Assistant; Visit Provider Physician Assistant | DX: Z20.822 Contact with and (suspected) exposure to COVID-19 (principal) | CPT/HCPCS: 87635; U0005; U0003 ==

== ENCOUNTER 2021-05-07 16:01 | Outpatient (CLI) | payer MEDICARE, OTHER, SELFPAY ==
--- NOTE | 2021-05-07 16:10 | NURSING ---
Pt arrived to unit for antibody infusion and immediately on arrival becomes nauseated w/ dry heaves.
[2021-05-07 16:11] VITALS: BP 143/58; PULSE 85; RESP 18; TEMP 38; O2SAT 96; BMI 43.2
[2021-05-07] MEDS: 0.9% Saline Lock 10 ML Syringe IV (16:38)
[2021-05-07 17:00] VITALS: BP 153/63; PULSE 82; RESP 20; TEMP 39.5; O2SAT 98
[2021-05-07 18:00] VITALS: BP 151/50; PULSE 78; RESP 18; TEMP 39.1; O2SAT 98
== END 2021-05-07 18:10 | disposition home or self-care (01) ==
LOC: ICUOUT 16:01 → MS2 16:02
PROVIDERS: PCP Family Medicine; Referring Provider Nurse Practitioner Acute Care; Visit Provider Nurse Practitioner Acute Care
DX: Z23 Encounter for immunization (principal); U07.1 COVID-19
CPT/HCPCS: J7050; M0243; A4216; Q0244

== ENCOUNTER → 2021-08-16 16:10 | Outpatient (CLI) | payer MEDICARE, OTHER, SELFPAY ==
[2021-08-16 17:45] LABS: Absolute Lymphocyte Count 3.12 X10^3/uL (0.83-4.51); Absolute Neutrophil Count 5.1 X10^3/uL (2.0-7.7); Basophil% 1.1 % (0-1); Eosinophil# 0.23 X10^3/uL; Eosinophils% 2.5 % (0-5); Hematocrit 35.2 % (37-47); Hemoglobin 11.1 g/dL (12.0-15.0); Lymphocyte # 3.12 X10^3/ul (0.83-4.51); Lymphocyte % 33.8 % (19-41); Mean Corp Hgb Conc 31.5 g/dL (32-36); Mean Corpuscular Hgb 29.7 pg (27.0-32.0); Mean Corpuscular Volume 94.1 fL (81-99); Mean Platelet Vol. 10.4 fl (6.2-12.0); Monocyte# 0.61 X10^3/uL; Monocyte% 6.6 % (0-10); NRBC Flagged by Analyzer 0 % (0-5); Neutrophil # 5.14 X10^3/uL (2.7-7.7); Neutrophil % 55.8 % (47-70); Platelet Count 417 K/mm3 (150-450); RBC Distribution Width CV 13.5 % (11.6-14.6); RBC Distribution Width SD 46.5 fl (35.1-43.9); Red Blood Count 3.74 M/mm3 (4.2-5.4); White Blood Count 9.2 K/mm3 (4.4-11.0)
[2021-08-16 18:07] LABS: Vitamin B12 493 pg/mL (211-911); Vitamin D,25 Hydroxy 48.3 ng/mL
[2021-08-16 18:12] LABS: ALB/GLOB Ratio 0.9 RATIO (0.9-2.4); AST(SGOT) 13 U/L (15-37); Alanine Aminotransfer ALT/SGPT 19 U/L (13-56); Albumin, Serum 3.6 g/dL (3.2-5.0); Alkaline Phosphatase 85 U/L (45-117); Anion Gap 7 (5-15); BUN 17 mg/dL (7-18); BUN/Creat Ratio 20.7 RATIO (10-20); Chloride 104 mmol/L (98-107); Creatinine, Serum 0.82 mg/dL (0.55-1.02); EST Glomerular Filtration Rate 73 mL/min (>60); Est Glom Filt Rate - Afr Amer 88 mL/min (>60); Ferritin 22 ng/mL (8-252); Globulin 3.9 g/dL (2.2-4.2); Glucose 97 mg/dL (74-106); Iron 64 ug/dL (50-170); Potassium 4.1 mmol/L (3.5-5.1); Protein, Total 7.5 g/dL (6.4-8.2); Sodium Level 139 mmol/L (136-145); T4 Free Direct 1.05 ng/dL (0.76-1.46)
== END ==
PROVIDERS: PCP Family Medicine; Referring Provider Family Medicine; Visit Provider Family Medicine
DX: R53.83 Other fatigue (principal); D64.9 Anemia, unspecified; E55.9 Vitamin D deficiency, unspecified
CPT/HCPCS: 36415; 80053; 82306; 82607; 82728; 83540; 84439; 84443; 85025

== ENCOUNTER 2021-10-12 16:58 | Outpatient (CLI) | payer MEDICARE, OTHER, SELFPAY ==
[2021-10-12 17:56] LABS: Absolute Lymphocyte Count 3.78 X10^3/uL (0.83-4.51); Absolute Neutrophil Count 6.8 X10^3/uL (2.0-7.7); Basophil% 0.8 % (0-1); Eosinophil# 0.25 X10^3/uL; Eosinophils% 2.1 % (0-5); Hematocrit 38.2 % (37-47); Hemoglobin 12.3 g/dL (12.0-15.0); Lymphocyte # 3.78 X10^3/ul (0.83-4.51); Lymphocyte % 32.1 % (19-41); Mean Corp Hgb Conc 32.2 g/dL (32-36); Mean Corpuscular Hgb 30.8 pg (27.0-32.0); Mean Corpuscular Volume 95.7 fL (81-99); Mean Platelet Vol. 10.2 fl (6.2-12.0); Monocyte# 0.83 X10^3/uL; NRBC Flagged by Analyzer 0 % (0-5); Neutrophil # 6.77 X10^3/uL (2.7-7.7); Neutrophil % 57.5 % (47-70); Platelet Count 404 K/mm3 (150-450); RBC Distribution Width CV 14.3 % (11.6-14.6); RBC Distribution Width SD 49.8 fl (35.1-43.9); Red Blood Count 3.99 M/mm3 (4.2-5.4); White Blood Count 11.8 K/mm3 (4.4-11.0)
[2021-10-12 18:36] LABS: Ferritin 41 ng/mL (8-252); Iron 83 ug/dL (50-170)
== END 2021-10-12 23:59 | disposition short-term general hospital (02) ==
PROVIDERS: PCP Family Medicine; Referring Provider Family Medicine; Visit Provider Family Medicine
DX: D50.9 Iron deficiency anemia, unspecified (principal)
CPT/HCPCS: 36415; 82728; 83540; 85025

== ENCOUNTER 2021-12-10 14:03 | Outpatient (CLI) | payer MEDICARE, OTHER, SELFPAY ==
--- NOTE | 2021-12-10 14:13 | BI_ITS ---
MAMMOGRAPHY - BILATERAL SCREENING REASON FOR EXAM: Female, 71 years old. Routine annual screening examination. PERTINENT HISTORY: Sisters with breast cancer. TECHNIQUE: Digital bilateral breast latisha (3D mammographic acquisition) in the CC and MLO projections. 2-D mediolateral oblique (MLO) and craniocaudad (CC) views of both breasts were obtained. CAD: Full Field Digital Mammography with Computer Added Detection was performed. COMPARISON: Comparison is made with prior study dated 11/30/2020 and 11/25/2019. FINDINGS: Breast Composition: There are scattered areas of fibroglandular density. There are no dominant masses or suspicious calcifications. Stable 6.7 mm well-defined nodule in the upper lateral aspect of the left breast. This most likely represents a small lymph node. No other significant abnormalities are identified. There has been no significant change since the prior study. BI/SCRN MAMM (CAD)W/LATISHA BILAT IMPRESSION: Stable bilateral screening mammogram. Yearly follow-up mammogram recommended. (A) ASSESSMENT CATEGORY: BIRADS Category 2: Benign. A letter regarding these results will be sent to the patient by the facility within 30 days. Approximately 10% of breast cancers are not detected by mammography. A normal mammogram should not delay biopsy of a clinically suspicious abnormality. [id number] Electronically Signed: Ciro Reece MD at 15:01 EDT ,
== END 2021-12-10 23:59 | disposition home or self-care (01) ==
LOC: OPBI 14:04
PROVIDERS: PCP Family Medicine; Visit Provider Obstetrics & Gynecology
DX: Z12.31 Encounter for screening mammogram for malignant neoplasm of breast (principal)
CPT/HCPCS: 77063; 77067

== ENCOUNTER 2021-12-16 09:38 | Outpatient (CLI) | payer MEDICARE, OTHER, SELFPAY ==
[2021-12-16 12:10] LABS: Erythrocyte Sedimentation Rate 20 mm/hr (0-30)
[2021-12-16 12:30] LABS: Vitamin D,25 Hydroxy 60.5 ng/mL
[2021-12-16 13:03] LABS: AST(SGOT) 11 U/L (15-37); Alanine Aminotransfer ALT/SGPT 19 U/L (13-56); Albumin, Serum 3.5 g/dL (3.2-5.0); Alkaline Phosphatase 77 U/L (45-117); Anion Gap 5 (5-15); BUN 18 mg/dL (7-18); BUN/Creat Ratio 20.9 RATIO (10-20); CPK Total, Creatine Kinase 79 U/L (26-192); Calcium,Total 8.7 mg/dL (8.5-10.1); Chloride 107 mmol/L (98-107); Creatinine, Serum 0.86 mg/dL (0.55-1.02); EST Glomerular Filtration Rate 69 mL/min (>60); Est Glom Filt Rate - Afr Amer 83 mL/min (>60); Globulin 3.5 g/dL (2.2-4.2); Glucose 88 mg/dL (74-106); Potassium 3.9 mmol/L (3.5-5.1); Sodium Level 141 mmol/L (136-145); T4 Free Direct 1.15 ng/dL (0.76-1.46); Thyroid Stim Hormone (TSH) 1.45 uIU/mL (0.358-3.74)
[2021-12-21 15:59] LABS: Adrenocorticotropic Hormone 11.1 pg/mL (7.2-63.3)
== END 2021-12-16 23:59 | disposition home or self-care (01) ==
LOC: BIMLAB 09:39
PROVIDERS: PCP Family Medicine; Referring Provider Internal Medicine Endocrinology, Diabetes & Metabolism; Visit Provider Internal Medicine Endocrinology, Diabetes & Metabolism
DX: E03.8 Other specified hypothyroidism (principal); M35.3 Polymyalgia rheumatica; E27.49 Other adrenocortical insufficiency; E06.3 Autoimmune thyroiditis; E78.00 Pure hypercholesterolemia, unspecified; E78.5 Hyperlipidemia, unspecified; E55.9 Vitamin D deficiency, unspecified
CPT/HCPCS: 36415; 80053; 82024; 82306; 82550; 84439; 84443; 85652

== ENCOUNTER 2021-12-23 16:49 | Outpatient (CLI) | payer MEDICARE, OTHER, SELFPAY ==
--- NOTE | 2021-12-23 17:25 | RAD_ITS ---
STUDY: X-RAY - PELVIS AND LEFT HIP REASON FOR EXAM: Female, 71 years old. PAIN LT HIP AND PUBIS AREA TECHNIQUE: XR Hip Unilateral with Pelvis when performed; 2-3 Views COMPARISON: None. FINDINGS: There is a non-specific bowel gas pattern. Normal visualized soft tissue structures. There are degenerative changes of the lumbar spine. Normal bilateral iliac wings, sacroiliac joints and visualized sacrum. Normal bilateral superior and inferior pubic rami. Normal pubic symphysis. Normal bilateral ischial tuberosities. Total bilateral hip arthroplasty. Prosthesis of the acetabulum. Normal hip joint. RAD/HIP, UNI W/ Pelvis 2-3 Views IMPRESSION: No acute findings. Electronically Signed: Efrem Fontenot MD at 21:25 EDT ,
== END 2021-12-23 23:59 | disposition home or self-care (01) ==
PROVIDERS: PCP Family Medicine; Visit Provider Family Medicine
DX: M25.552 Pain in left hip (principal)
CPT/HCPCS: 73502

== ENCOUNTER → 2022-01-11 | Outpatient (CLI) | payer MEDICARE, OTHER, SELFPAY ==
--- NOTE | 2022-01-11 09:59 | US_ITS ---
STUDY: RENAL ULTRASOUND - COMPLETE REASON FOR EXAM: Female, 71 years old. Recurring UTIs. TECHNIQUE: Ultrasound evaluation of the kidneys was performed with real-time and static petersen-scale imaging. COMPARISON: Comparison is made with prior study 06/06/2011. FINDINGS: RIGHT KIDNEY: Normal location of the right kidney, which is normal in size. The right kidney measures 9.7 cm x 4.8 cm x 3.5 cm. There is a normal cortex of the right kidney. The renal cortex measures 1.1 cm. There is no right renal mass or cyst. There are no right renal calculi. There is mild hydronephrosis of the right kidney. DISTAL RIGHT URETER: There is non-visualization of the distal right ureter. There is no demonstrated right ureterovesical junction calculus. There is no demonstrated right ureteral jet. LEFT KIDNEY: Normal location of the left kidney, which is normal in size. The left kidney measures 10 cm x 4.3 cm x 5.7 cm. There is a normal cortex of the left kidney. The renal cortex measures 1.7 cm. There is no left renal mass or cyst. There are no left renal calculi. There is no left hydronephrosis. DISTAL LEFT URETER: There is non-visualization of the distal left ureter. There is no demonstrated left ureterovesical junction calculus. There is no demonstrated left ureteral jet. BLADDER: The distended urinary bladder has a volume of 140.8 ml. There is a normal wall thickness of the distended urinary bladder. There is no demonstrated mass within the urinary bladder. There are no demonstrated bladder calculi. US/Kidney and Bladder IMPRESSION: Normal ultrasound of the kidneys and urinary bladder. Electronically Signed: Ciro Reece MD at 12:21 EDT ,
== END | disposition home or self-care (01) ==
LOC: US 09:58
PROVIDERS: PCP Family Medicine; Referring Provider Urology; Visit Provider Urology
DX: N39.0 Urinary tract infection, site not specified (principal)
CPT/HCPCS: 76770

== ENCOUNTER → 2022-01-12 | Outpatient (CLI) | payer MEDICARE, OTHER, SELFPAY ==
--- NOTE | 2022-01-12 06:41 | MRI_ITS ---
EXAM: MR PELVIS WITHOUT INTRAVENOUS CONTRAST CLINICAL INDICATION: LEFT GROIN PAIN, ? and quot;SPORTS HERNIA and quot; TECHNIQUE: Multiplanar and multisequence MR images of the pelvis without intravenous contrast. This report was created using [employer] technology. COMPARISON: None. FINDINGS: APPENDIX: No evidence of acute appendicitis. INTRAPERITONEAL SPACE: Unremarkable. No ascites or other fluid collection. BLADDER: Unremarkable. REPRODUCTIVE: Atrophic uterus. BONES/JOINTS: Findings suggesting disc herniation at L5-S1. Dedicated MRI of the lumbar spine can better evaluate. There is bilateral neural foraminal stenosis at L4-5 and L5-S1. Total bilateral hip arthroplasty. Degenerative findings of the lumbar spine. No suspicious lytic or blastic abnormality. SOFT TISSUES: No visualized inguinal hernias. LYMPH NODES: Benign-appearing inguinal lymph nodes. MRI/Pelvis (Routine) IMPRESSION: 1. Findings suggesting disc herniation at L5-S1. Dedicated MRI of the lumbar spine can better evaluate. 2. There is bilateral neural foraminal stenosis at L4-5 and L5-S1. 3. No visualized inguinal hernias. Electronically Signed: Efrem Fontenot MD at 21:44 EDT ,
== END | disposition home or self-care (01) ==
LOC: MRI 06:33
PROVIDERS: PCP Family Medicine; Referring Provider Family Medicine; Visit Provider Family Medicine
DX: R10.32 Left lower quadrant pain (principal)
CPT/HCPCS: 72195

== ENCOUNTER → 2022-01-25 | Outpatient (CLI) | payer MEDICARE, OTHER, SELFPAY ==
--- NOTE | 2022-01-25 13:57 | CT_ITS ---
STUDY: CT ABDOMEN AND PELVIS WITH AND WITHOUT CONTRAST REASON FOR EXAM: Female, 71 years old. HYDRONEPHROSIS RADIATION DOSAGE (If Supplied By Facility): CTDIvol = ( 16.67 ) mGy, DLP = ( 2595.86 ) mGycm TECHNIQUE: Transaxial images were obtained from the dome of the diaphragm to the symphysis pubis without oral contrast. IV 100mL Isovue-300 was administered. Sagittal and coronal images were reconstructed. Individualized dose optimization techniques were used for this CT. COMPARISON: None. FINDINGS: The visualized lung bases are unremarkable. Coronary artery calcification. Normal liver. Normal gallbladder and extrahepatic biliary system. Normal spleen. Normal pancreas. Normal bilateral adrenal glands. Normal right kidney. Normal left kidney. There is a small hiatal hernia. Normal small intestine. Large amount of fecal material is seen in the colon. The appendix is visualized and appears normal. There is diffuse atherosclerotic calcification of the abdominal aorta and its major visceral branches, without a demonstrated aneurysm. Normal inferior vena cava. Normal retroperitoneum. Normal urinary bladder. There is a small umbilical hernia containing fat. There are diffuse degenerative changes of the visualized lumbar spine. Bilateral hip replacements causing limited visualization of the pelvic structures. CT/CT Abd/Pelvis W/WO Contrast IMPRESSION: Large amount of fecal material is seen in the colon. No evidence of a obstructive uropathy at this time. Electronically Signed: Ciro Reece MD at 15:02 EDT ,
[2022-01-25 14:16] LABS: CREATININE FINGERSTICK < 0.9 mg/dL (0.55-1.02); EGFR FINGERSTICK > 60.0000 mL/min (>60)
== END | disposition home or self-care (01) ==
LOC: CT 13:55
PROVIDERS: PCP Family Medicine; Visit Provider Urology
DX: N13.30 Unspecified hydronephrosis (principal)
CPT/HCPCS: 74178; Q9967

== ENCOUNTER → 2022-03-01 | Outpatient (CLI) | payer MEDICARE, OTHER, SELFPAY ==
--- NOTE | 2022-03-01 13:00 | MRI_ITS ---
STUDY: MRI RIGHT HIP REASON FOR EXAM: Right hip pain. TECHNIQUE: Standardized fat and water weighted pulse sequences were obtained in all 3 orthogonal planes. COMPARISON: MRI images of the pelvis 01/12/2022. FINDINGS: There is a right hip arthroplasty with a small periarticular fluid collection (series 6 images 5-7). There is a incomplete tear of the right anterior gluteus medius tendon (series 6 image 8) without demonstrated tear of the posterior aspect of the right gluteus medius tendon. There is peritendinitis of the right gluteus minimus tendon (series 6 images 13, 14) without focal discontinuity of the tendon. Normal right iliopsoas tendon. There is right greater trochanteric bursitis (series 6 images 3-7). There is also greater trochanteric bursitis of the contralateral left hip. Normal superior and inferior pubic rami. Normal pubic symphysis. Normal ischial tuberosity. There is low-grade partial tearing of the origin of the origin of the right hamstring tendons (T2 axial images 16-20). Normal visualized iliac wing, sacroiliac joint, and sacral ala. Normal visualized soft tissue structures of the pelvis. MRI/Lower Ext Joint Only (Routine) IMPRESSION: Incomplete tear of the right anterior gluteus medius tendon. Peritendinitis of the right gluteus minimus tendon. Bilateral greater trochanteric bursitis. Low-grade partial tearing of the origin of the right hamstring tendons. Right hip arthroplasty with small periarticular fluid collection. Electronically Signed: Wilmer Hu MD at 14:22 EDT ,
== END | disposition home or self-care (01) ==
PROVIDERS: PCP Family Medicine; Referring Provider Specialist; Visit Provider Specialist
DX: S76.011A Strain of muscle, fascia and tendon of right hip, initial encounter (principal); R53.1 Weakness; Z96.641 Presence of right artificial hip joint
CPT/HCPCS: 73721

== ENCOUNTER → 2022-03-23 | Outpatient (CLI) | payer MEDICARE, OTHER, SELFPAY ==
--- NOTE | 2022-03-23 06:37 | MRI_ITS ---
STUDY: MRI LUMBAR SPINE WITHOUT CONTRAST REASON FOR EXAM: Female, 71 years old. BOWEL INCONTINENCE TECHNIQUE: Standardized fat and water weighted pulse sequences were obtained in the sagittal and axial planes. COMPARISON: MRI lumbar spine without contrast 02/25/2020. FINDINGS: T10-T11: (Sagittal only). MODIC type II degenerative vertebral marrow fatty changes underneath the vertebral endplates with pronounced disc space height narrowing. Small posterior bulging annulus. Normal central canal and bilateral intervertebral neural foramina. This level is unchanged. T11-T12: (Sagittal only). Mild MODIC type II degenerative vertebral marrow fatty changes underneath the anterior aspect of vertebral endplates. Moderate disc space height narrowing with small posterior bulging disc is unchanged. Normal central canal and bilateral intervertebral neural foramina. T12-L1: (Sagittal only). Normal endplates. Mild disc space height narrowing. Elongated left ventral extra dural defect is small posterior midline cephalad disc extrusion. Normal central canal and bilateral intervertebral neural foramina. Normal lumbar lordosis. There is no substantial scoliosis. Normal conus medullaris that terminates at the lower L1 vertebral body level. L1-2: Normal endplates. Mild disc space height narrowing. Mild ventral extra defects due to posterior bulging annulus. Normal facet joints. Normal central canal and bilateral lateral recesses. Normal bilateral intervertebral neural foramina. L2-3: Normal endplates. Normal disc height. Mild ventral extradural defect due to posterior bulging annulus. Posterior ligamenta flava hypertrophy. Mild bilateral degenerative facet arthropathy. Moderately pronounced flattening central canal stenosis with an AP canal diameter of 5.5 mm is a new finding. Normal bilateral lateral recesses. Normal bilateral intervertebral neural foramina. L3-4: Normal L3 inferior endplate. Old anterior wedge compression fracture of the upper L4 vertebral body is unchanged. This accounts for the increased anterior disc space height. Minimal anterolisthesis of L3 on L4 is unchanged. Pronounced bilateral degenerative facet arthropathy. Moderate central canal stenosis with an AP canal diameter 6.8 mm is unchanged. Prominent dorsal epidural lipomatosis. Normal bilateral lateral recesses. Mild stenosis of the right intervertebral neural foramen. Normal left intervertebral neural foramen. L4-5: Normal endplates. Normal disc height. Mild degenerative anterolisthesis of L4 on L5 is unchanged. Pronounced bilateral degenerative facet hypertrophy. Normal central canal and bilateral lateral recesses. Mild stenosis of the bilateral intervertebral neural foramina are unchanged. L5-S1: MODIC type II degenerative vertebral marrow fatty changes underneath the right side of the vertebral endplates. Moderate disc space height narrowing. Mild ventral extra dural defect due to posterior bulging annulus. Moderate right degenerative facet arthropathy. Mild left degenerative facet arthropathy. Normal central canal and bilateral lateral recesses. Moderately pronounced stenosis of the right intervertebral neural foramen with suspicious impingement of the right L5 nerve. Mild stenosis of the left intervertebral neural foramina. Normal visualized sacral ala. Normal visualized paraspinous soft tissue structures. MRI/Spine Lumbar (Routine) IMPRESSION: 1. Mild increase of moderately pronounced stenosis of the right L5-S1 intervertebral neural foramen with increase impingement of the right L5 nerve. 2. Moderately pronounced flattening central canal stenosis at L2-L3 disc space level with an AP canal diameter of 5.5 mm is a new finding. 3. Moderate central canal stenosis at L3-L4 disc space level with an AP canal diameter of 6.8 mm and minimal degenerative anterolisthesis of L3 on L4 are unchanged. 4. Mild degenerative anterolisthesis of L4 on L5 is unchanged. 5. Left T12-L1 posterior midline cephalad disc extrusion is a new finding. No axial images were done at this level but no obvious nerve root displacement or any associated spinal stenosis. Electronically Signed: Mathew Burger MD at 13:06 EDT ,
== END | disposition home or self-care (01) ==
LOC: MRI 06:20
PROVIDERS: PCP Family Medicine; Referring Provider Anesthesiology Pain Medicine; Visit Provider Anesthesiology Pain Medicine
DX: R15.9 Full incontinence of feces (principal)
CPT/HCPCS: 72148

== ENCOUNTER → 2022-03-30 | Outpatient (CLI) | payer MEDICARE, OTHER, SELFPAY | END | disposition home or self-care (01) | PROVIDERS: PCP Family Medicine; Visit Provider Family Medicine | DX: R35.0 Frequency of micturition (principal) | CPT/HCPCS: 87077; 87086; 87088; 87186 ==

== ENCOUNTER → 2022-04-30 | Outpatient (CLI) | payer MEDICARE, OTHER, SELFPAY ==
[2022-04-30 10:47] LABS: AST(SGOT) 20 U/L (15-37); Alanine Aminotransfer ALT/SGPT 21 U/L (13-56); Albumin, Serum 3.4 g/dL (3.2-5.0); Alkaline Phosphatase 85 U/L (45-117); Bilirubin, Direct 0.09 mg/dL (0.00-0.30); Cholesterol 246 mg/dL (200); Globulin 3.4 g/dL (2.2-4.2); High Density Lipoprotein 67 mg/dL; Protein, Total 6.8 g/dL (6.4-8.2); Triglycerides 65 mg/dL; Very Low Density Lipoprotein 13 mg/dL (5-40)
== END | disposition home or self-care (01) ==
LOC: LAB 09:40
PROVIDERS: PCP Family Medicine; Referring Provider Internal Medicine Cardiovascular Disease; Visit Provider Internal Medicine Cardiovascular Disease
DX: E78.00 Pure hypercholesterolemia, unspecified (principal)
CPT/HCPCS: 36415; 80061; 80076

== ENCOUNTER 2022-12-02 09:25 | Day surgery (SDC) | payer MEDICARE, OTHER, SELFPAY ==
--- NOTE | 2022-11-29 09:24 | EKG12_ITS ---
Test Reason : PREOP Blood Pressure : / mmHG Vent. Rate : 065 BPM Atrial Rate : 065 BPM P-R Int : 158 ms QRS Dur : 070 ms QT Int : 404 ms P-R-T Axes : 032 -09 039 degrees QTc Int : 420 ms Sinus rhythm with Premature atrial complexes Nonspecific T wave abnormality Abnormal ECG Confirmed by DEIRDRE MCMILLAN, BELKYS ([id number]), graphics editor NATASHA FLORES ([id number]) on 11/29/2022 12:52:49 PM Referred By: Huey Ochoa Confirmed By:BELKYS GILMORE MD
[2022-11-29 10:35] LABS: Hematocrit 36.7 % (37-47); Hemoglobin 11.4 g/dL (12.0-15.0); Mean Corp Hgb Conc 31.1 g/dL (32-36); Mean Corpuscular Hgb 31.3 pg (27.0-32.0); Mean Corpuscular Volume 100.8 fL (81-99); Mean Platelet Vol. 10.2 fl (6.2-12.0); Platelet Count 367 K/mm3 (150-450); RBC Distribution Width CV 13.5 % (11.6-14.6); RBC Distribution Width SD 50.1 fl (35.1-43.9); Red Blood Count 3.64 M/mm3 (4.2-5.4); White Blood Count 9.4 K/mm3 (4.4-11.0)
[2022-11-29 11:03] LABS: Anion Gap 5 (5-15); BUN 20 mg/dL (7-18); BUN/Creat Ratio 25.6 RATIO (10-20); Chloride 108 mmol/L (98-107); Creatinine, Serum 0.78 mg/dL (0.55-1.02); EST Glomerular Filtration Rate 77 mL/min (>60); Est Glom Filt Rate - Afr Amer 93 mL/min (>60); Glucose 94 mg/dL (74-106); Potassium 4.2 mmol/L (3.5-5.1); Sodium Level 143 mmol/L (136-145)
[2022-11-29 11:17] LABS: Thyroid Stim Hormone (TSH) 0.66 uIU/mL (0.358-3.74)
[2022-12-02] VITALS (7 sets, daily range): BP systolic 127–150; BP diastolic 59–91; PULSE 66–87; RESP 16–17; TEMP 36.1–37.1; O2SAT 93–99; BMI 30.4
[2022-12-02] MEDS: Lactated Ringers 1,000 ML 15 ML IV (09:59)
[2022-12-02] MEDS: Hydrocortisone Sod Succinate 100 MG/2 ML Vial 50 MG IV ×2 (10:00→15:02)
--- NOTE | 2022-12-02 11:00 | HERN_PTH ---
PATIENT: HARSHAD KRAMER [place] [facility] [place][id number] AGE/SX: 72/F ROOM: RE12/02/[address]: Dr. Huey Ochoa MD : 1950 BED: DIS: 12/02/2022 SPEC #: [id number] RECD: 12/02/22 17:10 STATUS: SIM ELA #: [id number] ERNIE: 12/02/22 11:[address]: Huey Ochoa DEPT: SURGICAL PATHOLOGY RECD BY: Sang Solitario ENTERED: 12/05/22 08:37 SP TYPE: Hernia OTHR DR: Dr. Ebenezer Vann, DO Tissues: HERNIA Procedures: Surgery Specimen Level II HEADER OPERATION: Laparoscopic inguinal hernia repair PRE-OP DIAGNOSIS: Left inguinal sports hernia TISSUE SUBMITTED: Umbilical hernia sac and contents MICROSCOPIC DIAGNOSIS Umbilical hernia and contents, excision: Mature adipose tissue consistent with hernia sac and contents. AM:cesia 12/06/2022 MICROSCOPIC DESCRIPTION Slides are reviewed. GROSS DESCRIPTION Received in fixative is one container labeled with the patient's name and designated umbilical hernia sac and contents. The specimen consists of a single irregular fragment of yellow fatty tissue measuring 2.0 x 1.5 x 1.0 cm. The specimen is bisected and totally submitted in one cassette. / AM:cesia 12/05/2022 TC:5 [facility]: [id number]
--- NOTE | 2022-12-02 12:13 | PCM.HP.BLA ---
History and Physical Date of Admission: 12/02/22 Is patient in pain?: No Allergies adhesive tape Allergy (Verified 11/21/22 09:31) Rashpravastatin [From Pravachol] Allergy (Verified 11/21/22 09:31) MUSCLE PAINcyclobenzaprine [From Flexeril] Adverse Reaction (Verified 11/21/22 09:31) EXTREME WEAKNESSNSAIDS (Non-Steroidal Anti-Inflamma Adverse Reaction (Verified 11/21/22 09:31) GI BLEED Medications aspirin 81 mg tablet,delayed release 81 mg PO QHS heart health 05/31/16 [History Confirmed 11/21/22] fluticasone propionate 50 mcg/actuation nasal spray,suspension 1 spray NASAL QHS nasal lubricant 05/31/16 [History Confirmed 11/21/22] omeprazole 40 mg capsule,delayed release 40 mg PO DAILY GERD 05/31/16 [History Confirmed 11/21/22] venlafaxine 37.5 mg tablet 37.5 mg PO QHS depression 05/31/16 [History Confirmed 11/21/22] calcium carbonate 600 mg-vitamin D3 20 mcg (800 unit) tablet 2 tab PO DAILY@1500 supplement 05/11/18 [History Confirmed 11/21/22] nitroglycerin 0.4 mg sublingual tablet 0.4 mg sublingual PRN PRN CHEST PAIN 07/24/18 [History Confirmed 11/21/22] clopidogrel 75 mg tablet 75 mg PO DAILY [facility] #90 tabs 03/23/20 [Rx Confirmed 11/21/22] metoprolol succinate 25 mg tablet,extended release 24 hr 25 mg PO DAILY 04/16/21 [History Confirmed 11/21/22] tramadol 50 mg tablet 50 mg PO DAILY 04/16/21 [History Confirmed 11/21/22] lisinopril 5 mg tablet 5 mg PO DAILY #90 tabs 09/07/21 [Rx Confirmed 11/21/22] cetirizine 10 mg capsule 10 mg PO DAILY 04/27/22 [History Confirmed 11/21/22] gabapentin 300 mg capsule 300 mg PO TID 04/27/22 [History Confirmed 11/21/22] prednisone 1 mg tablet 1 mg PO DAILY steroid 04/27/22 [History Confirmed 11/21/22] ropinirole 0.25 mg tablet 0.25 mg PO QHS PRN 04/27/22 [History Confirmed 11/21/22] ascorbate calcium (vitamin C) 500 mg tablet 500 mg PO DAILY 05/10/22 [History Confirmed 11/21/22] levothyroxine 137 mcg tablet 137 mcg PO DAILY #90 tabs 05/10/22 [Rx Confirmed 11/21/22] PFSH Medical History? 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 H/O laminectomy (03/2019) History of bilateral hip replacements History of bilateral knee replacement History of carpal tunnel release History of coronary artery stent placement (12/14/07) History of herniorrhaphy History of left heart catheterization (10/02/09) History of radiofrequency ablation procedure for cardiac arrhythmia (09/28/01) wound debridement Family History? 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 Never smoker alcohol intake:? never HPI HPI Surgical H&P: Yes HPI: Patient is a 72 y/o F I am following for left groin pain. Patient is currently scheduled for an elective laparoscopic left inguinal hernia repair. Patient denies any recent hospitalizations or illnesses. Patient notes intermittent left groin pain. She notes this has not become any worse. She has recently returned from [place]. She is currently on Plavix for cardiac stents. Patient is also on Prednisone for polymyaglia rheumatica. She denies any previous complications with anesthesia. Patient's previous history per Dr. Ochoa: 72-year-old female who is being referred for left groin pain by Dr. Ebenezer Vann and a written copy of my surgical consult recommendations will return to him.? The patient has concern about a sports hernia on March 23, 2022 the patient had an MRI of the lumbar spine and this demonstrates mild increase of moderate pronounced stenosis right L5-S1 moderately pronounced flattening of the central canal stenosis at L2-L3 and also L3-L4 left T12-L1 posterior midline cephalad disc exclusion is a new finding but no obvious nerve root displacement.? She had had a previous CT abdomen pelvis January 25, 2022 demonstrating large amount of fecal material in the colon but no evidence of obstructive uropathy. Patient complains of an intermittently sharp left groin pain.? It tends to come on when she tries to stretch her legs or cough or sneeze.? Has been ongoing for least a year.? She is not able to detect a mass or bulge.? She has been evaluated by Dr. Ebenezer Vann and Dr. Reno Chambers and Dr. Cleveland.? As noted above she has had imaging. She states that she can tolerate the intermittent discomfort.? She states its not uncomfortable all the time and that she is able to walk and perform most duties she just gets these sharp twinges of pain with certain stretching and and sneezing activity.? She is concerned concerned that this could represent an occult hernia.? She would be interested in having that repaired.? The concept of a sports hernia has been discussed with her and she is aware that these are difficult to diagnose. She additionally states that she thinks she has some weakness of the left leg.? She sometimes has to help assist her leg and flexing but this is not particularly apparently associated with the pain The patient did have a nerve injection per Dr. Cleveland.? The patient states that her leg was weak for a day and a half.? She attributes that to a nicking of a structure and that I tried to reassure her that this was simply some extravasation of the injection. ROS General General: Yes fatigue; No weight change, appetite, colon cancer, breast cancer or weakness HEENT HEENT: No difficulty swallowing, eye injury, eye surgery, swollen glands or hoarseness Endo Endocrine: Yes thyroid disease; No diabetes mellitus, thyroid cancer, Hair loss, heat intolerance or cold intolerance Skin Skin: No rash or changing moles Breast Breast: No left breast lump, right breast lump, nipple discharge, breast pain, abnormal mammogram, abnormal US or breast enlargement Musc Musculoskeletal: No back problems, arthritis, rheumatoid arthritis, gout or joint pain Cardio Cardiovascular: Yes heart disease, high blood pressure and heart stent; No murmur, pacemaker, atrial fibrillation, heart attack, palpitations, shortness of breat with exertion or chest pain Psych Psychiatric: No depression, anxiety or hearing voices Resp Respiratory: No shortness of breath, Yes sleep apnea, No cough, No COPD, No asthma, No emphysema and No wheezing Gastro Gastrointestinal: No abdominal pain, No nausea or vomiting, No diarrhea, Yes constipation, No blood in stool, No acid reflux, No hemorrhoids, No ulcers, No gallbladder problem and No black,tarry stools Favio Hematologic: Yes blood thinners, No blood disorders, No bleeding, No anemia and No blood clots Neuro Neurologic: No system reviewed and no additional complaints, except as documented, No as per HPI, No abnormal gait, No abnormal hearing, No abnormal movements, No abnormal speech, No behavioral changes, No burning sensations, No confusion, No convulsions, No disequilibrium, No dizziness, No localized weakness, No frequent falls, No headache(s), No lack of coordination, No loss of vision, No memory loss, No numbness, No other visual disturbances, No radicular pain, No restless legs, No sensory deficit, No syncope, No tingling, No tremor(s), No weakness and No other Exam Const General: cooperative, healthy appearing, comfortable and no acute distress [facility] Head: normal to inspection Eyes General: appearance normal, both eyes and all related structures Neck Neck: normal visual inspection Neck mass: No Chest Chest palpation & inspection: normal inspection of the chest Resp Effort & Inspection: normal respiratory effort Auscultation: clear to auscultation bilaterally Cardio Rate: regular rate Rhythm: regular rhythm GI Inspection: normal to inspection Palpation: soft Other: Left groin- tender to palpation. No true hernia palpated. Musc Cervical Spine: normal cervical lordosis Skin General: no rashes or lesions noted Neuro General: no focal motor deficits and CN's II-XI intact bilaterally Extrem General: normal to inspection Psych Appearance: grossly normal Affect: normal affect Assessment and Plan Assessment and Plan (1) Left groin pain: ?Status:?Acute ?Plan: Dr. Ochoa will plan to perform a laparoscopic left inguinal hernia repair with mesh. Procedure details, risks and benefits have been reviewed. Patient has had the opportunity to ask and have questions answered. Patient verbally understands and agrees with the plan. Patient will hold her Plavix 5 days prior to the procedure. Patient is on prednisone. Will discuss holding this medication with Dr. Ochoa. We had an extensive discussion in the patient's room today to rehash possible outcome of the procedure. Patient is complaining of pain focally in the left groin with certain movements. She is also complaining of left leg weakness. We extensively discussed the possibility of identifying an indirect inguinal hernia or direct inguinal hernia or a femoral hernia. The patient had it in her mind that we would be looking for femoral nerves and repairing nerves today. I have recanted that if all 3 sites appear normal that she could still have a sports hernia of which some patients are improved by performing a typical hernia repair and supporting the area. We made it very clear today that there would be no nerve inspection or nerve repairs that that would not be part of the procedure. She would have the same leg weakness that she has now. Unfortunately we also discussed that visual inspection would be unlikely to determine the presence of a sports hernia and that there is not an insignificant chance that postprocedure she has the same left groin pain that she had prior. She is very clear on the benefit risk. She is aware that there are no guarantees of benefit. She is still interested in pursuing the repair as it for sports hernia. We repeated the procedure technique and findings. We will proceed today as timing scheduled. Huey Ochoa M.D., F.A.C.S.
--- NOTE | 2022-12-02 12:52 | DCINST_ITS ---
Discharge Instructions Procedure General Surgery Diet Discharge Diet: Light diet - advance as tolerated (if you have questions about your diet instructions, please talk to you doctor.) Activity Discharge Activity: May Not Drive (for 3-5 days or while taking narcotic pain medicine.) May shower in (days): 1 Lifting Restrictions: 10 pounds Dressing / Incision Call your doctor if your incision/area has: Continuous Slow Oozing, Sudden Increased Bleeding, Increased Pain/ Swelling, Increased Redness and Foul Smelling Discharge Call your doctor if you observe: Fever of 101 or Higher Suture Line Care: Avoid Pulling/Pushing and Avoid Pinching/Bending Additional Dressing/Incision Instructions:: Change or remove dressing in 4 days. Leave steri-strips in place for 1 week. May resume clopidogrel on December 06, 2022 Follow Up Care Please Follow Up With: Huey Ochoa MD When: Call [phone] to make an appointment to be seen in about 10 days. Test Results: Test results from this visit will be discussed in further detail at your follow- up appointment, if applicable. Discharge Plan Admission Attending Provider: Huey Ochoa Primary Care Provider: Ebenezer Vann Discharge Orders/Prescriptions Prescriptions: No Action tramadol 50 mg tablet 50 mg PO BID metoprolol succinate 25 mg tablet extended release 24 hr 25 mg PO DAILY prednisone 1 mg tablet 2 mg PO DAILY Label Comments: HAD TODAY 06/10/16 ascorbate calcium (vitamin C) 500 mg tablet 500 mg PO DAILY levothyroxine 137 mcg tablet 137 mcg PO DAILY Qty: 90 3RF gabapentin 300 mg capsule 300 mg PO TID omeprazole 40 MG capsule 40 mg PO DAILY Label Comments: HAD SIMILIAR MEDICATION 06/10/16 aspirin 81 MG tablet,delayed release (DR/EC) 81 mg PO QHS venlafaxine 37.5 MG tablet 37.5 mg PO QHS fluticasone propionate 1 SPRAY spray,suspension 1 spray NASAL QHS cetirizine 10 mg capsule 10 mg PO PRN PRN (Reason: ALLERGIES) calcium carbonate-vitamin D3 1 TAB tablet 2 tab PO DAILY@1500 nitroglycerin 0.4 MG tablet, sublingual 0.4 mg sublingual PRN PRN (Reason: CHEST PAIN) lisinopril 5 mg tablet 5 mg PO QHS clopidogrel 75 mg tablet 75 mg PO DAILY Qty: 90 3RF Referrals / Follow Up: Ebenezer Vann, [Primary Care Provider] - Disposition Disposition (needs filled in before D/C Order can be placed): Home, Self Care
[2022-12-02] MEDS: Cefazolin 2 GM in 0.9% Normal Saline 100 ML IV (13:08)
[2022-12-02] MEDS: Sugammadex Sodium 200 MG/2 ML VIAL IV (14:02)
[2022-12-02] MEDS: Bupivacaine 0.25% 30 ML Vial (14:09)
--- NOTE | 2022-12-02 14:10 | OP.PCM_ITS ---
Report of Operation Date of Procedure: 12/02/22 Pre-Operative Diagnosis: Left inguinal sports hernia Post-Operative Diagnosis: Left inguinal sports hernia Umbilical hernia Very small indirect right inguinal hernia Surgery/Procedure Performed:: Laparoscopic left inguinal herniorrhaphy Umbilical herniorrhaphy Left large Bard 3D max: Lot number [id number], reference [id number], expiry date 07/08/2027 Description of Surgical Findings:: Timeout informed consent was obtained. 72-year-old female was taken to the operating placed on the table underwent general endotracheal intubation esthesia Ancef 2 g were given intravenously the abdomen sterilely prepped and draped 0.25% Marcaine was used as a local anesthetic throughout the procedure a total of 30 cc was used skin sites were pretty anesthetized a vertical infraumbilical incision sharp dissection carried down through the subcu tissue and so doing an umbilical hernia was identified circumferential dissection was performed sac contents excised holding sutures of 0 Vicryl placed varies needle inserted the abdomen was insufflated with CO2 to a pressure of 10 mmHg pressure. 10 mm trocar inserted. 10 mm laparoscope inserted. No evidence of any trocar injuries. Pelvic areas were inspected. No defect grossly noted on the left. Very small indirect defect on the right which I did not feel warranted intervention at this time as the patient is having left groin pain. A ilioingu inal nerve block was performed with a 0.25% Marcaine under laparoscopic guidance. 5 mm ports were placed in the right and left lower quadrant the peritoneum superior lateral to the internal ring was incised carried immediately. The peritoneum was completely dissected free mass German with blunt dissection. Clear view of the left indirect area and direct area and femoral area was obtained. No gross defects identified. This would be consistent with a diagnosis of sports hernia. A Bard large left 3D max mesh was placed was to cover all 3 potential defect areas. It was secured in place laterally superiorly and medially and medially with secure strap. Excellent positioning and coverage was achieved. The peritoneum was approximated with Hem-o-mariela clips with complete obliteration to the mesh. The abdomen was allowed to deflate of the CO2 through an antiviral valve. The umbilical hernia was now closed with simple sutures of 0 Nurolon. Skin edges were approximated opted for Monocryl subdermal stitches. Steri-Strips Telfa OpSite dressings applied. Sponge and instrument and needle counts were reported to the surgeon to be correct. Specimens hernia sac umbilical hernia sac and contents. Drains none. Blood loss minimal. The patient was taken to the recovery room in satisfied condition without apparent complication Huey Ochoa M.D., F.A.C.S.
== END 2022-12-02 16:36 | disposition home or self-care (01) ==
LOC: SDC 09:26 → AC 09:27
PROVIDERS: Anesthesiology; PCP Family Medicine; Referring Provider Surgery; Visit Provider Surgery
PROC: (CPT 49650; principal; 2022-12-02 10:40)
DX: K40.20 Bilateral inguinal hernia, without obstruction or gangrene, not specified as recurrent (principal); M35.3 Polymyalgia rheumatica; E27.49 Other adrenocortical insufficiency; M48.061 Spinal stenosis, lumbar region without neurogenic claudication; Z95.5 Presence of coronary angioplasty implant and graft; K42.9 Umbilical hernia without obstruction or gangrene; M48.07 Spinal stenosis, lumbosacral region; E03.9 Hypothyroidism, unspecified; I10 Essential (primary) hypertension; I25.10 Atherosclerotic heart disease of native coronary artery without angina pectoris; E78.5 Hyperlipidemia, unspecified; Z96.643 Presence of artificial hip joint, bilateral; Z96.653 Presence of artificial knee joint, bilateral
CPT/HCPCS: 49650; 49591; 36415; 80048; 84443; 85027; 88302; 93005; J7120; C1781; J2405

== ENCOUNTER → 2023-01-05 | Outpatient (CLI) | payer MEDICARE, OTHER, SELFPAY ==
[2023-01-05 12:50] LABS: Erythrocyte Sedimentation Rate 35 mm/hr (0-30)
== END | disposition home or self-care (01) ==
LOC: BFHLAB 10:32
PROVIDERS: PCP Family Medicine; Referring Provider Family Medicine; Visit Provider Family Medicine
DX: M35.3 Polymyalgia rheumatica (principal); E27.40 Unspecified adrenocortical insufficiency
CPT/HCPCS: 36415; 82533; 85652

== ENCOUNTER → 2023-01-11 | Outpatient (CLI) | payer MEDICARE, OTHER, SELFPAY ==
[2023-01-11 12:07] LABS: Erythrocyte Sedimentation Rate 10 mm/hr (0-30)
[2023-01-11 12:09] LABS: Absolute Lymphocyte Count 2.94 X10^3/uL (0.83-4.51); Absolute Neutrophil Count 5.8 X10^3/uL (2.0-7.7); Basophil# 0.09 X10^3/uL; Basophil% 0.9 % (0-1); Eosinophil# 0.25 X10^3/uL; Eosinophils% 2.5 % (0-5); Hematocrit 40.1 % (37-47); Hemoglobin 11.8 g/dL (12.0-15.0); Lymphocyte # 2.94 X10^3/ul (0.83-4.51); Lymphocyte % 29.3 % (19-41); Mean Corp Hgb Conc 29.4 g/dL (32-36); Mean Corpuscular Hgb 32.7 pg (27.0-32.0); Mean Corpuscular Volume 111.1 fL (81-99); Monocyte# 0.87 X10^3/uL; Monocyte% 8.7 % (0-10); NRBC Flagged by Analyzer 0.2 % (0-5); Neutrophil # 5.82 X10^3/uL (2.7-7.7); Neutrophil % 58.1 % (47-70); Platelet Count 323 K/mm3 (150-450); RBC Distribution Width CV 14.2 % (11.6-14.6); RBC Distribution Width SD 57.8 fl (35.1-43.9); Red Blood Count 3.61 M/mm3 (4.2-5.4)
[2023-01-11 12:28] LABS: CRP 5.82 mg/L (0.0-3.0)
== END | disposition home or self-care (01) ==
LOC: MTLAB 11:04
PROVIDERS: PCP Family Medicine; Referring Provider Ophthalmology; Visit Provider Ophthalmology
DX: R51.9 Headache, unspecified (principal)
CPT/HCPCS: 36415; 85025; 85652; 86140

== ENCOUNTER 2023-01-27 08:48 | Day surgery (SDC) | payer MEDICARE, OTHER, SELFPAY ==
[2023-01-27] VITALS (7 sets, daily range): BP systolic 104–156; BP diastolic 59–74; PULSE 65–68; RESP 15–18; TEMP 36.4–36.5; O2SAT 93–100; BMI 29.7
--- NOTE | 2023-01-27 09:28 | HP.PCM_ITS ---
History and Physical Date of Admission: 01/27/23 Intake Vital Signs ? 01/23/2313:11 Height 5 ft 5 in Weight: 179 lb BMI 29.7 BP 148/82 H Blood Pressure LocationB Rt brachial Position Sitting Respiration 18 Intake Visit Reasons:?Temporal Artery Biopsy Chief Complaint: temporal artery biopsy Customer Order Clerk Required: No Is patient in pain?: Yes (headache) Allergies adhesive tape Allergy (Verified 01/23/23 13:12) Rashpravastatin [From Pravachol] Allergy (Verified 01/23/23 13:12) MUSCLE PAINcyclobenzaprine [From Flexeril] Adverse Reaction (Verified 01/23/23 13:12) EXTREME WEAKNESSNSAIDS (Non-Steroidal Anti-Inflamma Adverse Reaction (Verified 01/23/23 13:12) GI BLEED Medications aspirin 81 mg tablet,delayed release 81 mg PO QHS heart health 05/31/16 [History Confirmed 01/23/23] fluticasone propionate 50 mcg/actuation nasal spray,suspension 1 spray NASAL QHS nasal lubricant 05/31/16 [History Confirmed 01/23/23] omeprazole 40 mg capsule,delayed release 40 mg PO DAILY GERD 05/31/16 [History Confirmed 01/23/23] venlafaxine 37.5 mg tablet 37.5 mg PO QHS depression 05/31/16 [History Confirmed 01/23/23] calcium carbonate 600 mg-vitamin D3 20 mcg (800 unit) tablet 2 tab PO DAILY@1500 supplement 05/11/18 [History Confirmed 01/23/23] nitroglycerin 0.4 mg sublingual tablet 0.4 mg sublingual PRN PRN CHEST PAIN 07/24/18 [History Confirmed 01/23/23] clopidogrel 75 mg tablet 75 mg PO DAILY heart health #90 tabs 03/23/20 [Rx Confirmed 01/23/23] metoprolol succinate 25 mg tablet,extended release 24 hr 25 mg PO DAILY 04/16/21 [History Confirmed 01/23/23] tramadol 50 mg tablet 50 mg PO BID 04/16/21 [History Confirmed 01/23/23] cetirizine 10 mg capsule 10 mg PO PRN PRN ALLERGIES 04/27/22 [History Confirmed 01/23/23] gabapentin 300 mg capsule 300 mg PO TID 04/27/22 [History Confirmed 01/23/23] prednisone 1 mg tablet 2 mg PO DAILY steroid 04/27/22 [History Confirmed 01/23/23] ascorbate calcium (vitamin C) 500 mg tablet 500 mg PO DAILY 05/10/22 [History Confirmed 01/23/23] levothyroxine 137 mcg tablet 137 mcg PO DAILY #90 tabs 05/10/22 [Rx Confirmed 01/23/23] lisinopril 5 mg tablet 5 mg PO QHS 11/25/22 [History Confirmed 01/23/23] PFSH Medical History? 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 H/O laminectomy (03/2019) History of bilateral hip replacements History of bilateral knee replacement History of carpal tunnel release History of coronary artery stent placement (12/14/07) History of esophagogastroduodenoscopy (EGD) History of herniorrhaphy History of left heart catheterization (10/02/09) History of radiofrequency ablation procedure for cardiac arrhythmia (09/28/01) Hx of colonoscopy Hx of fusion of cervical spine Hx of left cataract extraction Hx of right cataract extraction Hx of right knee surgery Hx of shoulder surgery wound debridement Family History? 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 Never smoker alcohol intake:? never HPI HPI HPI: Patient is a 72-year-old female here for temporal artery biopsy.? Patient has history of polymyalgia rheumatica.? She was started on a new medication started to have temporal headaches on the right as well as headaches in the eye on the right and some double vision on the right eye.? She was started on steroids and this mostly resolved. ROS General General: Yes fatigue; No weight change, appetite, colon cancer, breast cancer or weakness HEENT HEENT: No difficulty swallowing, eye injury, eye surgery, swollen glands or hoarseness Endo Endocrine: Yes thyroid disease; No diabetes mellitus, thyroid cancer, Hair loss, heat intolerance or cold intolerance Skin Skin: No rash or changing moles Breast Breast: No left breast lump, right breast lump, nipple discharge, breast pain, abnormal mammogram, abnormal US or breast enlargement Musc Musculoskeletal: No back problems, arthritis, rheumatoid arthritis, gout or joint pain Cardio Cardiovascular: Yes heart disease, high blood pressure and heart stent; No murmur, pacemaker, atrial fibrillation, heart attack, palpitations, shortness of breat with exertion or chest pain Psych Psychiatric: No depression, anxiety or hearing voices Resp Respiratory: No shortness of breath, Yes sleep apnea, No cough, No COPD, No asthma, No emphysema and No wheezing Gastro Gastrointestinal: No abdominal pain, No nausea or vomiting, No diarrhea, Yes constipation, No blood in stool, No acid reflux, No hemorrhoids, No ulcers, No gallbladder problem and No black,tarry stools Favio Hematologic: Yes blood thinners, No blood disorders, No bleeding, No anemia and No blood clots Neuro Neurologic: No system reviewed and no additional complaints, except as documented, No as per HPI, No abnormal gait, No abnormal hearing, No abnormal movements, No abnormal speech, No behavioral changes, No burning sensations, No confusion, No convulsions, No disequilibrium, No dizziness, No localized weakness, No frequent falls, No headache(s), No lack of coordination, No loss of vision, No memory loss, No numbness, No other visual disturbances, No radicular pain, No restless legs, No sensory deficit, No syncope, No tingling, No tremor(s), No weakness and No other Exam Const General: cooperative Orientation: alert and oriented x3 HENMT Head: normal to inspection Neck Neck: normal visual inspection and full ROM Chest Chest palpation & inspection: normal inspection of the chest Resp Effort & Inspection: normal respiratory effort Auscultation: clear to auscultation bilaterally Cardio Rate: regular rate Rhythm: regular rhythm GI Inspection: non-distended Palpation: soft and nontender Skin General: no rashes or lesions noted Neuro General: patient alert and patient oriented x3 Extrem General: full ROM Psych Appearance: grossly normal Mental Status: mental status grossly normal Assessment and Plan Assessment and Plan (1) Right sided temporal headache: ?Status:?Acute ?Plan: Patient has been having right-sided temporal headaches and vision changes that have responded to steroids.? She is here for right temporal artery biopsy.? I discussed temporal artery biopsy with her and her in detail.? I discussed the risks of the procedure as well as the benefits.? I discussed the risks of bleeding and infection.? Patient is already holding her Plavix and I will have her continue her aspirin.? I will plan for surgery on Monday. Shayan Hardy MD Pager: [facility] [address] [place] [address], [address] [place] [address] Office: I have examined the patient and the H&P has been reviewed. There are no clinical changes since date of exam.
[2023-01-27] MEDS: Lactated Ringers 1,000 ML 15 ML IV (09:30)
[2023-01-27] MEDS: Lubricating Jelly 60 GM Tube 30 GM (11:20)
[2023-01-27] MEDS: Bupivacaine 0.5% PF 10 ML VIAL (11:23)
--- NOTE | 2023-01-27 11:45 | TEM_PTH ---
PATIENT: HARSHAD KRAMER LOC: [facility] [place] U#:[id number] AGE/SX: 72/F ROOM: RE01/27/[address]: Dr. Shayan Hardy MD : 1950 BED: DIS: 01/27/2023 SPEC #: [id number] RECD: 01/27/23 14:36 STATUS: SIM RESuyapa #: [id number] ERNIE: 01/27/23 11:[address]: Shayan Hardy DEPT: SURGICAL PATHOLOGY RECD BY: Estephania Chris ENTERED: 01/30/23 08:18 SP TYPE: TEMPORAL OTHR DR: Dr. Ebenezer Vann DO Tissues: Temporal region Procedures: Elastin Stain (control) Special Stain Group II Surgery Specimen Level IV HEADER OPERATION: Temporal artery biopsy PRE-OP DIAGNOSIS: Right-sided temporal headaches TISSUE SUBMITTED: Right temporal artery MICROSCOPIC DIAGNOSIS Right temporal artery, biopsy: Negative for giant cell arteritis. Mild intimal hyperplasia. See comment. SJ:cesia 01/31/2023 COMMENT Elastic stain was used in the evaluation of the specimen. Clinical correlation and appropriate follow up are necessary. MICROSCOPIC DESCRIPTION Slides are reviewed. GROSS DESCRIPTION Received in fixative is one container labeled with the patient's name and designated right temporal artery. The specimen consists of a tubular piece of mckinney-pink soft tissue measuring 3.5 cm in length and 0.1 cm in diameter. The specimen is totally submitted in one cassette. / SJ:cesia 01/30/2023 TC:5 CPT: 59867, 16142
--- NOTE | 2023-01-27 11:55 | PCM.OPRPT ---
Report of Operation Date of Procedure: 01/27/23 Pre-Operative Diagnosis: Right temporal headaches Post-Operative Diagnosis: Same Surgery/Procedure Performed:: Right temporal artery biopsy Specimen's removed: Right temporal artery Description of Procedure: Patient was brought to the operating room and MAC anesthesia was induced. The right congregational was inspected and the temporal artery was identified and traced. The right congregational was then prepped and draped in usual sterile fashion. The area was injected with local anesthetic and then an incision was made with a scalpel. Electrocautery was used to maintain hemostasis and deepen the to the fascia. The fascia was sharply incised and the artery was identified. It was a dissected inferiorly and superiorly. Both ends were clipped and ligated and its tributaries were ligated as well. The artery was sent for pathology. The cavity was irrigated and suctioned dry and there was good hemostasis. The incision was closed with a running 4-0 Monocryl suture and then Dermabond was applied. Patient was taken to PACU in stable condition. Admit VTE Documentation VTE Mechan Device Prophylaxis: SCD's
--- NOTE | 2023-01-27 11:56 | DCINST_ITS ---
Discharge Instructions Diet Discharge Diet: No restrictions Activity Discharge Activity: Return to Normal Activity, May Drive and May Shower Lifting Restrictions: 10 pounds for 2 days Additional Activity Instructions:: Resume Plavix Monday Dressing / Incision Call your doctor if your incision/area has: Continuous Slow Oozing, Sudden Increased Bleeding, Increased Pain/ Swelling, Increased Redness, Foul Smelling Discharge and Swelling at the incision site Call your doctor if you observe: Fever of 101 or Higher Cleanse incision/area with: Soap & Water Follow Up Care Please Follow Up With: Shayan Hardy MD When: Please call to schedule 2 week follow up appointment. [phone] Test Results: Test results from this visit will be discussed in further detail at your follow- up appointment, if applicable. Discharge Plan Admission Attending Provider: Shayan Hardy Primary Care Provider: Ebenezer Vann Instructions Additional Instructions / Restrictions: Ibuprofen and Tylenol for pain Discharge Orders/Prescriptions Prescriptions: No Action tramadol 50 mg tablet 50 mg PO BID metoprolol succinate 25 mg tablet extended release 24 hr 25 mg PO DAILY prednisone 1 mg tablet 2 mg PO DAILY Label Comments: HAD TODAY 06/10/16 ascorbate calcium (vitamin C) 500 mg tablet 500 mg PO DAILY levothyroxine 137 mcg tablet 137 mcg PO DAILY Qty: 90 3RF gabapentin 300 mg capsule 300 mg PO TID omeprazole 40 MG capsule 40 mg PO DAILY Label Comments: HAD SIMILIAR MEDICATION 06/10/16 aspirin 81 MG tablet,delayed release (DR/EC) 81 mg PO QHS venlafaxine 37.5 MG tablet 37.5 mg PO QHS fluticasone propionate 1 SPRAY spray,suspension 1 spray NASAL QHS cetirizine 10 mg capsule 10 mg PO PRN PRN (Reason: ALLERGIES) calcium carbonate-vitamin D3 1 TAB tablet 2 tab PO DAILY@1500 nitroglycerin 0.4 MG tablet, sublingual 0.4 mg sublingual PRN PRN (Reason: CHEST PAIN) lisinopril 5 mg tablet 5 mg PO QHS temazepam 15 mg Capsule 15 mg PO QHS PRN (Reason: Sleep) Probiotic and Acidophilus 300-250 million cell-mg Capsule 1 cap PO DAILY d-mannose 500 mg Capsule 2,100 mg PO DAILY Clear Nails 1 tab PO/SL DAILY clopidogrel 75 mg tablet 75 mg PO DAILY Qty: 90 3RF Referrals / Follow Up: Ebenezer Vann DO [Primary Care Provider] - Disposition Disposition (needs filled in before D/C Order can be placed): Home, Self Care
== END 2023-01-27 12:36 | disposition home or self-care (01) ==
LOC: SDC 08:50 → AC 08:51
PROVIDERS: PCP Family Medicine; Referring Provider Surgery; Visit Provider Surgery
PROC: (CPT 37609; principal; 2023-01-27 11:30)
DX: R51.9 Headache, unspecified (principal); M35.3 Polymyalgia rheumatica; I25.10 Atherosclerotic heart disease of native coronary artery without angina pectoris; G47.33 Obstructive sleep apnea (adult) (pediatric); M41.56 Other secondary scoliosis, lumbar region; K21.9 Gastro-esophageal reflux disease without esophagitis; E03.9 Hypothyroidism, unspecified; I10 Essential (primary) hypertension; Z86.16 Personal history of COVID-19; Z95.5 Presence of coronary angioplasty implant and graft; Z79.82 Long term (current) use of aspirin; Z79.899 Other long term (current) drug therapy
CPT/HCPCS: 37609; 00352; 88305; 88313; A4648; J7120; J2405

== ENCOUNTER → 2023-02-20 | Outpatient (CLI) | payer MEDICARE, OTHER, SELFPAY ==
--- NOTE | 2023-02-20 10:24 | BI_ITS ---
MAMMOGRAPHY - BILATERAL SCREENING REASON FOR EXAM: Female, 72 years old. Routine annual screening examination. PERTINENT HISTORY: Sisters with breast cancer. TECHNIQUE: Digital bilateral breast latisha (3D mammographic acquisition) in the CC and MLO projections. 2-D mediolateral oblique (MLO) and craniocaudad (CC) views of both breasts were obtained. CAD: Full Field Digital Mammography with Computer Added Detection was performed. COMPARISON: Comparison is made with prior study dated December 10, 2021 and November 30, 2020. FINDINGS: Breast Composition: There are scattered areas of fibroglandular density. There are no dominant masses or suspicious calcifications. The previously seen well-defined nodule in the upper-outer quadrant of the left breast has decreased in size. It presently measures 3.6 mm. No other significant abnormalities are identified. BI/SCRN MAMM (CAD)W/LATISHA BILAT IMPRESSION: Stable bilateral screening mammogram. Yearly follow-up mammogram recommended. (A) ASSESSMENT CATEGORY: BIRADS Category 2: Benign. A letter regarding these results will be sent to the patient by the facility within 30 days. Approximately 10% of breast cancers are not detected by mammography. A normal mammogram should not delay biopsy of a clinically suspicious abnormality. [id number] Electronically Signed: Ciro Reece MD at 13:36 EDT ,
== END | disposition home or self-care (01) ==
LOC: OPBI 10:21
PROVIDERS: PCP Family Medicine; Referring Provider Obstetrics & Gynecology; Visit Provider Obstetrics & Gynecology
DX: Z12.31 Encounter for screening mammogram for malignant neoplasm of breast (principal); Z80.3 Family history of malignant neoplasm of breast
CPT/HCPCS: 77063; 77067

== ENCOUNTER → 2023-07-17 | Outpatient (CLI) | payer MEDICARE, OTHER, SELFPAY ==
--- NOTE | 2023-07-17 09:35 | RAD_ITS ---
STUDY: AIR CONTRAST ESOPHAGRAM AND UPPER GI SERIES REASON FOR EXAM: Female, 72 years old. R13.10 - Dysphagia, unspecified FLUOROSCOPY TIME (if supplied): (53 seconds) minutes/seconds. 47.2 mGy. 18 images were obtained. TECHNIQUE: SINGLE CONTRAST AND AIR CONTRAST FLUOROSCOPIC IMAGES. COMPARISON: None. FINDINGS: The cervical esophagus demonstrates normal motility without aspiration. There is no stricture or extrinsic mass effect. No intraluminal polypoid mass is identified. The thoracic esophagus distends well without stricture or mucosal fold thickening. No mucosal ulcerations are identified. There is no extrinsic mass effect. There are no diverticula. Questionable small polyp along the left lateral wall of the proximal esophagus. Correlation with ultrasound is recommended. No hiatal hernia or gastroesophageal reflux was identified. The stomach distends well without mucosal fold thickening or mucosal ulceration. There is no intraluminal mass. The duodenal bulb is freely distensible without deformity or ulceration. The duodenal sweep is normal in position and caliber. RAD/Upper GI w/BA Swallow IMPRESSION: Questionable small polyp in the proximal esophagus along the left lateral wall. Endoscopic correlation recommended. Electronically Signed: Ciro Reece MD at 14:46 EST ,
== END | disposition home or self-care (01) ==
LOC: RAD 09:29
PROVIDERS: PCP Family Medicine; Referring Provider Physician Assistant; Visit Provider Physician Assistant
DX: R13.10 Dysphagia, unspecified (principal)
CPT/HCPCS: 74246

== ENCOUNTER 2023-07-21 05:48 | Day surgery (SDC) | payer MEDICARE, OTHER, SELFPAY ==
--- NOTE | 2023-07-21 | GASB_PTH ---
PATIENT: HARSHAD KRAMER LOC: [facility] U#:[id number] AGE/SX: 72/F ROOM: RE07/21/[address]: Dr. Huey Ochoa MD : 1950 BED: DIS: 07/21/2023 SPEC #: [id number] RECD: 07/21/23 13:47 STATUS: SIM ELA #: [id number] ERNIE: 07/21/23 00:[address]: Huey Ochoa DEPT: SURGICAL PATHOLOGY RECD BY: Abilio Luis ENTERED: 07/21/23 13:47 SP TYPE: Gastric Bx OTHR DR: Dr. Ebenezer Vann DO Tissues: A - Duodenum, NOS B - Gastric mucous membrane C - Stomach, NOS D - Esophageal mucous membrane Procedures: Surgery Specimen Level IV HEADER OPERATION: EGD and biopsy PRE-OP DIAGNOSIS: Esophageal dysphagia TISSUE SUBMITTED: A. Duodenum Biopsy, B, Antral Biopsy, C. Greater Curvature Polyp, D. Distal Esophagus Biopsy MICROSCOPIC DIAGNOSIS A. Duodenum, biopsy: No pathologic change. B. Gastric antrum, biopsy: Chronic gastritis. See comment. C. Greater curvature polyp, biopsy: Fundic gland polyp. D. Distal esophagus, biopsy: Fragments of benign squamous epithelium. No evidence of inflammation. AM:cesia 07/25/2023 COMMENT B. The results of immunohistochemistry for Helicobacter pylori will be reported separately ([id number]). MICROSCOPIC DESCRIPTION Slides are reviewed. GROSS DESCRIPTION A - Received in fixative is one container labeled with the patient's name and designated duodenum biopsy. The specimen consists of two irregular fragments of light mckinney soft tissue that in aggregate measure 0.6 x 0.3 x 0.1 cm. The specimen is totally submitted in one cassette. B - Received in fixative is one container labeled with the patient's name and designated antral biopsy. The specimen consists of one irregular fragment of light mckinney soft tissue that measures 0.3 x 0.3 x 0.1 cm. The specimen is totally submitted in one cassette. C - Received in fixative is one container labeled with the patient's name and designated greater curvature polyp. The specimen consists of one irregular fragment of light mckinney soft tissue that measures 0.3 x 0.3 x 0.1 cm. The specimen is totally submitted in one cassette. D - Received in fixative is one container labeled with the patient's name and designated distal esophagus. The specimen consists of one irregular fragment of light mckinney soft tissue that measures 0.7 x 0.2 x 0.1 cm. The specimen is totally submitted in one cassette. / SJ:rg 07/21/2023 TC:3 CPT: 98348 x4
--- NOTE | 2023-07-21 | IMM_PTH ---
PATIENT: HARSHAD KRAMER LOC: [place] U#:[id number] AGE/SX: 72/F ROOM: RE07/21/[address]: Dr. Huey Ochoa MD : 1950 BED: DIS: 07/21/2023 SPEC #: [id number] RECD: 07/21/23 14:45 STATUS: SIM REQ #: [id number] ERNIE: 07/21/23 00:[address]: Huey Ochoa DEPT: IMMUNOHISTOCHEMISTRY RECD BY: Estephania Chris ENTERED: 07/21/23 14:46 SP TYPE: IMMUNO OTHR DR: Dr. Ebenezer Vann, Tissues: Gastric mucous membrane Procedures: H Pylori (initial) PHYSICIAN & INSTITUTION [place] [id number] SPECIMEN INFORMATION: Tissue Source: Antral biopsy Clinical Info: Esophageal dysphagia Specimen Number: [id number] CPT code: 00413 METHODOLOGY: Deparaffinized sections of prefer/formalin-fixed tissue or PAP/DQ stained slides are incubated with monoclonal/polyclonal antibodies/oligonucleotide probes. Localization is made via biotin free immunoperoxidase method. Appropriate controls are performed and reacted as expected. Results on target cell population are indicated in the following table: RESULTS: ANTIBODY / CLONE RESULT Block B H Pylori (polyclonal) negative These tests were developed and their performance characteristics determined by [facility]. They may not have been cleared or approved by the U.S. Food and Drug Administration. The FDA has determined that such clearance or approval is not necessary. The above immunohistochemical/dualISH markers are ordered and reviewed by the Pathologist. INTERPRETATION: B. Antrum, biopsy: Negative for Helicobacter pylori organisms. AM:cesia 07/24/2023
--- NOTE | 2023-07-21 05:57 | HP.PCM_ITS ---
History and Physical Date of Admission: 07/21/23 Visit Reasons: SELF REFERRED DIFFICULY SWALLOWING Chief Complaint: difficulty swallowoing Is patient in pain?: No Allergies adhesive tape Allergy (Verified 06/26/23 09:10) Rashpravastatin [From Pravachol] Allergy (Verified 06/26/23 09:10) MUSCLE PAINcyclobenzaprine [From Flexeril] Adverse Reaction (Verified 06/26/23 09:10) EXTREME WEAKNESSNSAIDS (Non-Steroidal Anti-Inflamma Adverse Reaction (Verified 06/26/23 09:10) GI BLEED Medications aspirin 81 mg tablet,delayed release 81 mg PO QHS heart health 05/31/16 [History Confirmed 06/26/23] fluticasone propionate 50 mcg/actuation nasal spray,suspension 1 spray NASAL QHS nasal lubricant 05/31/16 [History Confirmed 06/26/23] omeprazole 40 mg capsule,delayed release 40 mg PO DAILY GERD 05/31/16 [History Confirmed 06/26/23] venlafaxine 37.5 mg tablet 37.5 mg PO QHS depression 05/31/16 [History Confirmed 06/26/23] calcium carbonate 600 mg-vitamin D3 20 mcg (800 unit) tablet 2 tab PO DAILY@1500 supplement 05/11/18 [History Confirmed 06/26/23] nitroglycerin 0.4 mg sublingual tablet 0.4 mg sublingual PRN PRN CHEST PAIN 07/24/18 [History Confirmed 06/26/23] clopidogrel 75 mg tablet 75 mg PO DAILY [facility] #90 tabs 03/23/20 [Rx Confirmed 06/26/23] metoprolol succinate 25 mg tablet,extended release 24 hr 25 mg PO DAILY 04/16/21 [History Confirmed 06/26/23] tramadol 50 mg tablet 50 mg PO BID 04/16/21 [History Confirmed 06/26/23] cetirizine 10 mg capsule 10 mg PO PRN PRN ALLERGIES 04/27/22 [History Confirmed 06/26/23] ascorbate calcium (vitamin C) 500 mg tablet 500 mg PO DAILY 05/10/22 [History Confirmed 06/26/23] levothyroxine 137 mcg tablet 137 mcg PO DAILY #90 tabs 05/10/22 [Rx Confirmed 06/26/23] lisinopril 5 mg tablet 5 mg PO QHS 11/25/22 [History Confirmed 06/26/23] Clear Nails 1 tab PO/SL DAILY 01/25/23 [History Confirmed 06/26/23] Lactobacillus comb [id number] 300 million cell-250 mg capsule (Probiotic and Acidophilus) 1 cap PO DAILY 01/25/23 [History Confirmed 06/26/23] d-mannose 500 mg capsule 2,100 mg PO DAILY 01/25/23 [History Confirmed 06/26/23] temazepam 15 mg capsule 15 mg PO QHS PRN Sleep 01/25/23 [History Confirmed 06/26/23] gabapentin 100 mg capsule 100 mg PO TID 03/16/23 [History Confirmed 06/26/23] prednisone 20 mg tablet 5 mg PO 05/29/23 [History Confirmed 06/26/23] PFSH Medical History Adrenal insufficiency Anemia Atherosclerosis of [place] coronary artery of [place] heart without angina pectoris 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) Cardiology follow-up encounter Contusion of left knee COVID-19 CPAP (continuous positive airway pressure) dependence Difficulty swallowing Frequent UTI Gastric reflux History of GI bleed History of pain when walking History of steroid therapy Hyperlipidemia Hypertension Hypothyroidism (acquired) 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 Injury of back Injury of head and neck Left knee pain Leg cramps Migraine headache Myofascitis Non-smoker Obstructive sleep apnea Osteoarthritis Osteoporosis Polymyalgia rheumatica Polymyalgia rheumatica Restless legs Secondary adrenal insufficiency Shortness of breath on exertion Supraventricular tachycardia Syncope Thoracic spondylosis Umbilical hernia Wears glasses Surgical History H/O laminectomy (03/2019) History of bilateral hip replacements History of bilateral knee replacement History of biopsy of temporal artery History of carpal tunnel release History of coronary artery stent placement (12/14/07) History of esophagogastroduodenoscopy (EGD) History of herniorrhaphy History of left heart catheterization (10/02/09) History of radiofrequency ablation procedure for cardiac arrhythmia (09/28/01) Hx of bilateral inguinal hernia repair Hx of colonoscopy Hx of fusion of cervical spine Hx of left cataract extraction Hx of right cataract extraction Hx of right knee surgery Hx of shoulder surgery wound debridement Family History Other Heart disease Thyroid disorder 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 I have most recently assisted her December 02, 2022 with a laparoscopic left inguinal hernia repair and simple umbilical hernia repair. On January 27, 2023 Dr. Shayan Hardy performed a right temporal artery biopsy because of headache. Pathology was negative for temporal arteritis. A previous abdominal CT scan of January 25, 2022 showed a small hiatal hernia at that time. I have personally reviewed those images and concur. She has a remote history of a GI bleed. She has polymyalgia rheumatica. The patient states that for 3 to 4 years she occasionally have some problems with food getting stuck. May be meat may be bread. On a couple occasions she has to induce emesis to dislodge. She thinks remotely she had an upper endoscopy but cannot recall when. No unexpected weight loss. No bright red blood per rectum or melena. No otherwise steroid allergies. 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 She has polymyalgia rheumatica and is typically at this time of year on 1 to 2 mg daily. 2007 she had a coronary stent placed and has been on clopidogrel and aspirin ever since. ROS General General: Yes fatigue; No weight change, appetite, colon cancer, breast cancer or weakness HEENT HEENT: No difficulty swallowing, eye injury, eye surgery, swollen glands or hoarseness Endo Endocrine: Yes thyroid disease; No diabetes mellitus, thyroid cancer, Hair loss, heat intolerance or cold intolerance Skin Skin: No rash or changing moles Breast Breast: No left breast lump, right breast lump, nipple discharge, breast pain, abnormal mammogram, abnormal US or breast enlargement Musc Musculoskeletal: No back problems, arthritis, rheumatoid arthritis, gout or joint pain Cardio Cardiovascular: Yes heart disease, high blood pressure and heart stent; No murmur, pacemaker, atrial fibrillation, heart attack, palpitations, shortness of breat with exertion or chest pain Psych Psychiatric: No depression, anxiety or hearing voices Resp Respiratory: No shortness of breath, Yes sleep apnea, No cough, No COPD, No asthma, No emphysema and No wheezing Gastro Gastrointestinal: No abdominal pain, No nausea or vomiting, No diarrhea, Yes constipation, No blood in stool, No acid reflux, No hemorrhoids, No ulcers, No gallbladder problem and No black,tarry stools Favio Hematologic: Yes blood thinners, No blood disorders, No bleeding, No anemia and No blood clots Neuro Neurologic: No system reviewed and no additional complaints, except as documented, No as per HPI, No abnormal gait, No abnormal hearing, No abnormal movements, No abnormal speech, No behavioral changes, No burning sensations, No confusion, No convulsions, No disequilibrium, No dizziness, No localized weakness, No frequent falls, No headache(s), No lack of coordination, No loss of vision, No memory loss, No numbness, No other visual disturbances, No radicular pain, No restless legs, No sensory deficit, No syncope, No tingling, No tremor(s), No weakness and No other Exam Const General: cooperative, healthy appearing and comfortable [facility] Head: normal to inspection Eyes General: appearance normal, both eyes and all related structures Neck Neck: normal visual inspection Chest Chest palpation & inspection: normal inspection of the chest Resp Effort & Inspection: normal respiratory effort Cardio Rate: regular rate Rhythm: regular rhythm GI Palpation: soft and no hepatosplenomegaly Musc Cervical Spine: normal cervical lordosis Skin General: no rashes or lesions noted Neuro General: patient alert, patient awake and patient oriented x3 Extrem General: no calf tenderness Psych Appearance: grossly normal Assessment and Plan Assessment and Plan (1) Polymyalgia rheumatica: Status: Acute (2) Esophageal dysphagia: Plan: Etiology of the patient esophageal dysphagia unclear. She is already on low- dose steroids but has been so chronically for polymyalgia rheumatica. She has a known small hiatal hernia based upon CT. I do recommend to her a contrast upper GI study. I then subsequently recommend to her a esophagogastroduodenoscopy with possible biopsy and if need be dilatation. She has had an opportunity to ask and have questions answered. We will proceed as noted. July 17, 2023 STUDY: AIR CONTRAST ESOPHAGRAM AND UPPER GI SERIES REASON FOR EXAM: Female, 72 years old. R13.10 - Dysphagia, unspecified FLUOROSCOPY TIME (if supplied): (53 seconds) minutes/seconds. 47.2 mGy. 18 images were obtained. TECHNIQUE: SINGLE CONTRAST AND AIR CONTRAST FLUOROSCOPIC IMAGES. COMPARISON: None. FINDINGS: The cervical esophagus demonstrates normal motility without aspiration. There is no stricture or extrinsic mass effect. No intraluminal polypoid mass is identified. The thoracic esophagus distends well without stricture or mucosal fold thickening. No mucosal ulcerations are identified. There is no extrinsic mass effect. There are no diverticula. Questionable small polyp along the left lateral wall of the proximal esophagus. Correlation with ultrasound is recommended. No hiatal hernia or gastroesophageal reflux was identified. The stomach distends well without mucosal fold thickening or mucosal ulceration. There is no intraluminal mass. The duodenal bulb is freely distensible without deformity or ulceration. The duodenal sweep is normal in position and caliber. RAD/Upper GI w/BA Swallow IMPRESSION: Questionable small polyp in the proximal esophagus along the left lateral wall. Endoscopic correlation recommended We plan to pursue a esophagogastroduodenoscopy with possible biopsy or polypectomy today. She is aware of technique, benefit, risks alternatives and findings of the barium swallow. We will proceed as noted. Huey Ochoa M.D., F.A.C.S.
[2023-07-21 06:18] VITALS: BP 142/59; PULSE 58; RESP 18; TEMP 36.2; O2SAT 97; BMI 31.0
[2023-07-21] MEDS: Lactated Ringers 1,000 ML 15 ML IV (06:31)
[2023-07-21 07:15] VITALS: BP 133/65; BP 142/59; PULSE 64; RESP 16; TEMP 36.3; O2SAT 97
--- NOTE | 2023-07-21 07:15 | OP.EGD_ITS ---
Patient Name: Emelyn Wolf Procedure Date: 07/21/2023 6:48 AM Date of : 1950 Age: 72 Procedure: Upper GI endoscopy Indications: Dysphagia Providers: Huey Ochoa MD Referring MD: Ebenezer Vann Medicines: See the Anesthesia note for documentation of the administered medications Complications: No immediate complications. Procedure: Pre-Anesthesia Assessment: - Prior to the procedure, a History and Physical was performed, and patient medications and allergies were reviewed. The patient's tolerance of previous anesthesia was also reviewed. The risks and benefits of the procedure and the sedation options and risks were discussed with the patient. All questions were answered, and informed consent was obtained. Prior Anticoagulants: The patient has taken no anticoagulant or antiplatelet agents. ASA Grade Assessment: II - A patient with mild systemic disease. After reviewing the risks and benefits, the patient was deemed in satisfactory condition to undergo the procedure. After obtaining informed consent, the endoscope was passed under direct vision. Throughout the procedure, the patient's blood pressure, pulse, and oxygen saturations were monitored continuously. The Endoscope was introduced through the mouth, and advanced to the second part of duodenum. The upper GI endoscopy was accomplished without difficulty. The patient tolerated the procedure well. Scope In: 6:58:41 AM Scope Out: 7:08:13 AM Total Procedure Duration Time 0 hours 9 minutes 32 seconds Findings: The upper third of the esophagus, middle third of the esophagus and lower third of the esophagus were normal. A 3 cm hiatal hernia was present. Biopsies were taken with a cold forceps for histology. Diffuse mildly erythematous mucosa without bleeding was found in the gastric antrum. Biopsies were taken with a cold forceps for histology. A few sessile polyps with no stigmata of recent bleeding were found on the greater curvature of the stomach. The polyp was removed with a cold biopsy forceps. Resection and retrieval were complete. The examined duodenum was normal. Biopsies were taken with a cold forceps for histology. The Z-line was regular and was found 39 cm from the incisors. Impression: - Normal upper third of esophagus, middle third of esophagus and lower third of esophagus. - 3 cm hiatal hernia. Biopsied. - Erythematous mucosa in the antrum. Biopsied. - A few gastric polyps. Resected and retrieved. - Normal examined duodenum. Biopsied. Recommendation: - Discharge patient to home. - Resume previous diet. - Continue present medications. - Telephone my office for pathology results in 1 week. No findings that would suggest significant active inflammation. Small hiatal hernia is noted and potentially according with the patient's food dysphagia. Further office appointment discuss treatment can be at the patient's discretion. Procedure Code(s): --- Professional --- 99302, Esophagogastroduodenoscopy, flexible, transoral; with biopsy, single or multiple Diagnosis Code(s): --- Professional --- K44.9, Diaphragmatic hernia without obstruction or gangrene K31.89, Other diseases of stomach and duodenum K31.7, Polyp of stomach and duodenum R13.10, Dysphagia, unspecified CPT copyright 2021 [employer]. All rights reserved. The codes documented in this report are preliminary and upon software quality test engineer review may be revised to meet current compliance requirements. Huey Ochoa MD 07/21/2023 7:14:44 AM This report has been signed electronically. Number of Addenda: 0 Note Initiated On: 07/21/2023 6:48 AM
--- NOTE | 2023-07-21 07:15 | OP.CCLET_ITS ---
07/21/2023 Ebenezer Vann [address] [place] [address] Re : Upper GI endoscopy procedure for Emelyn Wolf Dear Dr. Vann This procedure was performed on Friday, July 21, 2023. My impressions and recommendations are as follows: Impressions : - Normal upper third of esophagus, middle third of esophagus and lower third of esophagus. - 3 cm hiatal hernia. Biopsied. - Erythematous mucosa in the antrum. Biopsied. - A few gastric polyps. Resected and retrieved. - Normal examined duodenum. Biopsied. Recommendations : - Discharge patient to home. - Resume previous diet. - Continue present medications. - Telephone my office for pathology results in 1 week. No findings that would suggest significant active inflammation. Small hiatal hernia is noted and potentially according with the patient's food dysphagia. Further office appointment discuss treatment can be at the patient's discretion. My findings are described in the full procedure note, which is enclosed. If I can be of further assistance, please feel free to contact me at Doctor phone number(s): Work: . Sincerely, Huey Ochoa MD 07/21/2023 7:14:44 AM This report has been signed electronically.
[2023-07-21 07:20] VITALS: BP 131/65; BP 142/59; PULSE 70; RESP 16; O2SAT 98
[2023-07-21 07:25] VITALS: BP 128/64; BP 142/59; PULSE 61; RESP 16; O2SAT 94
--- NOTE | 2023-07-21 07:31 | PCM.PN.BLA ---
Progress Note If patient continues to have soft dysphagia and food getting stuck then would consider esophageal manometry. Huey Ochoa M.D., F.A.C.S.
[2023-07-21 07:34] VITALS: BP 139/62; BP 142/59; PULSE 67; RESP 18; TEMP 36.8; O2SAT 96
[2023-07-21 07:52] VITALS: BP 142/59
== END 2023-07-21 08:04 | disposition home or self-care (01) ==
LOC: EN 05:50 → AC 05:50
PROVIDERS: PCP Family Medicine; Referring Provider Family Medicine; Visit Provider Surgery
PROC: 0DJ08ZZ Inspection of Upper Intestinal Tract, Via Natural or Artificial Opening Endoscopic (ICD-10-PCS; CPT 43235; principal; 2023-07-21 06:55)
DX: R13.10 Dysphagia, unspecified (principal); M35.3 Polymyalgia rheumatica; K44.9 Diaphragmatic hernia without obstruction or gangrene; I10 Essential (primary) hypertension; E78.5 Hyperlipidemia, unspecified; K31.7 Polyp of stomach and duodenum; I25.10 Atherosclerotic heart disease of native coronary artery without angina pectoris; Z99.89 Dependence on other enabling machines and devices; Z79.899 Other long term (current) drug therapy; Z79.82 Long term (current) use of aspirin; K21.9 Gastro-esophageal reflux disease without esophagitis; Z79.02 Long term (current) use of antithrombotics/antiplatelets; E03.9 Hypothyroidism, unspecified; Z96.643 Presence of artificial hip joint, bilateral; Z96.653 Presence of artificial knee joint, bilateral; Z95.5 Presence of coronary angioplasty implant and graft; Z98.41 Cataract extraction status, right eye; Z98.42 Cataract extraction status, left eye; K31.89 Other diseases of stomach and duodenum
CPT/HCPCS: 43239; 88305; 88342; J7120; J2405

== ENCOUNTER → 2023-07-28 | Outpatient (CLI) | payer MEDICARE, OTHER, SELFPAY ==
[2023-07-28 18:44] LABS: Absolute Lymphocyte Count 3.01 X10^3/uL (0.83-4.51); Absolute Neutrophil Count 5.6 X10^3/uL (2.0-7.7); Basophil# 0.09 X10^3/uL; Basophil% 0.9 % (0-1); Eosinophil# 0.15 X10^3/uL; Eosinophils% 1.6 % (0-5); Hematocrit 35.9 % (37-47); Hemoglobin 11.5 g/dL (12.0-15.0); Lymphocyte # 3.01 X10^3/ul (0.83-4.51); Lymphocyte % 31.6 % (19-41); Mean Corpuscular Hgb 32.1 pg (27.0-32.0); Mean Corpuscular Volume 100.3 fL (81-99); Mean Platelet Vol. 10.5 fl (6.2-12.0); Monocyte# 0.68 X10^3/uL; Monocyte% 7.1 % (0-10); NRBC Flagged by Analyzer 0 % (0-5); Neutrophil # 5.56 X10^3/uL (2.7-7.7); Neutrophil % 58.5 % (47-70); Platelet Count 387 K/mm3 (150-450); RBC Distribution Width CV 13.6 % (11.6-14.6); Red Blood Count 3.58 M/mm3 (4.2-5.4); White Blood Count 9.5 K/mm3 (4.4-11.0)
[2023-07-28 18:57] LABS: Vitamin B12 551 pg/mL (211-911); Vitamin D,25 Hydroxy 49.4 ng/mL
[2023-07-28 19:11] LABS: ALB/GLOB Ratio 1.2 RATIO (0.9-2.4); AST(SGOT) 13 U/L (15-37); Alanine Aminotransfer ALT/SGPT 20 U/L (13-56); Albumin, Serum 3.8 g/dL (3.2-5.0); Alkaline Phosphatase 61 U/L (45-117); Anion Gap 6 (5-15); BUN 23 mg/dL (7-18); Calcium,Total 8.6 mg/dL (8.5-10.1); Chloride 109 mmol/L (98-107); Creatinine, Serum 0.82 mg/dL (0.55-1.02); EST Glomerular Filtration Rate 72 mL/min (>60); Est Glom Filt Rate - Afr Amer 87 mL/min (>60); Ferritin 49 ng/mL (8-252); Globulin 3.3 g/dL (2.2-4.2); Glucose 101 mg/dL (74-106); Iron 83 ug/dL (50-170); Potassium 4.3 mmol/L (3.5-5.1); Protein, Total 7.1 g/dL (6.4-8.2); Sodium Level 140 mmol/L (136-145); T4 Free Direct 1.03 ng/dL (0.76-1.46); Thyroid Stim Hormone (TSH) 0.46 uIU/mL (0.358-3.74)
== END | disposition home or self-care (01) ==
LOC: MTLAB 15:58
PROVIDERS: PCP Family Medicine; Referring Provider Nurse Practitioner Family; Visit Provider Nurse Practitioner Family
DX: E03.9 Hypothyroidism, unspecified (principal); E55.9 Vitamin D deficiency, unspecified; E53.8 Deficiency of other specified B group vitamins; D50.9 Iron deficiency anemia, unspecified; M85.80 Other specified disorders of bone density and structure, unspecified site
CPT/HCPCS: 36415; 80053; 82306; 82607; 82728; 83540; 84439; 84443; 85025

== ENCOUNTER 2023-09-05 10:30 | Outpatient (RCR) | payer MEDICARE, OTHER, SELFPAY ==
--- NOTE | 2023-08-07 14:04 | HP.PTDCSUM ---
Discharge Summary D/C summary: It has been my pleasure to treat HARSHAD KRAMER referred by Dr. Nestor Galvez MD, with the diagnosis of cervico occiptial neuralgia for a total of 1 visit(s). Discharge Date: Please see the following information for a summary of their discharge status. Pain FRANCO: Pain Intensity (Out of 10): 0 Neck apin: Pain Intensity (Out of 10): 1 Goals Goal 1:: 40 degrees B cervical rotation without pain Goal 2:: Neck pain abolished and FRANCO 75% better overall Goal 3:: Patient I in management of condition Goal 4:: Sit with appropriate upright posture without cues. Goal 5:: 5 or better quickdash Plan Plan: 2x/week for 4 weeks for 1. MH to neck, STM to R UT and neck, manual traction and PROM focussing R rotation and extension/retraction to neck. 2. strength posture and neck when improved. postural focus D/C Information d/c sentence: If there are questions or concerns regarding this patient's physical therapy, please feel free to call me at [phone]. Thank you for the referral of this patient. Sincerely, Phi Pastor, DPT, OCS, CSCS Balance/Gait/Functional tests Balance/Special Test Scores Oswestry Neck Score: 14
--- NOTE | 2023-08-15 10:55 | HP.PTEVAL_ITS ---
Patient's Visit Information Visit Information Visit Information: HARSHAD KRAMER is a 73 year old F referred to Physical Therapy by Dr. Nestor Galvez MD with a diagnosis of cervico occiptial neuralgia. Date of Evaluation: 08/07/23 Physical Therapist: Phi Pastor, DPT, OCS, CSCS Visit Plan Frequency: 2x /Week Duration: 4-6 Weeks Plan: 2x/week for 4 weeks for 1. MH to neck, STM to R UT/neck, manual traction and PROM focusing R rotation and extension/retraction. 2. strength posture and neck when improved. postural focus Subjective Subjective: Having R sided FRANCO. Had med infusion for OP and is on prednisone for long time. FRANCO started with that infusion in December and has had FRANCO everyday since. Had a temporal artery biopsy which was negative. Saw Dr. 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 Had two nerve blocks there which have helped. Went to neurologist then and he thinks it is migraines from stress. Gave tizanidine and elavil and imitrex if she gets a FRANCO. imitrex really takes away FRANCO the one time she has taken it. Doing PT before she will get a brain MRI. Still gets pain in R neck with turning R or sleep on R side adn can trigger a FRANCO. Sometimes TV will trigger FRANCO. TV is straight on and 12 feet away. Phone not as bad. Sleeping on side, turning in bed onto R can give her FRANCO. No regular exercises. Sleeping OK for the most part once she is asleep. Imitrex if wakes up with FRANCO. Activities : normal but miserable sometimes. Things have to get done. Previous history of TMJ from dentist and neuro but no pain or dysfunction here. No pain or problem chewing and has had it for a long time. No different now then typically. Had neck fusion in [address] CAN. Pain FRANCO: Pain Intensity (Out of 10): 0 Pain Intensity Range: 0 and 9 Neck apin: Pain Intensity (Out of 10): 3 Pain Intensity Range: 0 Objective Objective: Forward head and protracted eledvated scapular posture. Tender to touch R UT and parapsinals cervical. AROM cervical retraction max limited and flexion mod limited with scarring over incision posteriorly. . Extension to 25 degree, r rotation 24 degrees and 40 degrees L rotation UE AROM WFL but limited er B shoulder to 25 degrees, Full RI and elevation to 130. elbow and wrist AROM WFL. reflexes 2/3 bi and tri sensation WNL to gross light touch. + c/s compression R. - median nerve tests. jaw is moving well with 38 mm opening and 20 mm deviation B without popping or clicking today and no pain. UE strength 4-/5 without pain, cervical strength 4/5 without pain Balance/Special Test Scores Oswestry Neck Score: 14 Goals Goal 1:: 40 degrees B cervical rotation without pain Goal Time Frame: 2-4 Weeks Goal 2:: Neck pain abolished and FRANCO 75% better overall Goal Time Frame: 2-4 Weeks Goal 3:: Patient I in management of condition Goal Time Frame: 2-4 Weeks Goal 4:: Sit with appropriate upright posture without cues. Goal Time Frame: 2-4 Weeks Goal 5:: 5 or better quickdash Goal Time Frame: 2-4 Weeks Rehabilitation Potential Physical Therapy Diagnosis: cervical dysfunciton with lack of ROM and pain contirbuting to FRANCO Rehabilitation Potential: Fair Anticipated Interventions Patient/Client Instruction: Educate patient on: Condition and Plan of Care For the Purpose of:: To decrease pain, To increase ROM, To improve muscle performance and motor function, To increase tolerance to activity/condition/position and To improve ability of physical actions for home/ community/work/leisure Therapeutic Exercise to Include: Strength training, Postural training, Flexibilty training, Passive ROM and Active ROM For the Purpose of:: To decrease pain, To increase ROM, To improve nutrient delivery to tissue, To improve muscle performance and motor function and To increase tolerance to activity/condition/position Manual Therapy Techniques to Include: Mobilization, Passive ROM and Soft tissue mobilization For the Purpose of:: To decrease pain, To improve nutrient delivery to tissue, To improve muscle performance and motor function, To increase tolerance to activity/condition/position and To improve ability of physical actions for home/community/work/leisure Thermo therapy (hot pack): Yes For the Purpose of:: To decrease pain, To increase ROM and To improve nutrient delivery to tissue Text: Thank you for the opportunity to evaluate your patient. Please note that a discharge summary was created by mistake adn this evaluation will replace that. For Medicare and Medicare HMO plans, please review the plan of care and approve it. It will need to be FAXED BACK to us at [phone] for Medicare purposes. For Medicare only, by signing this I certify the plan of care. Please let me know if there are questions or concerns regarding this plan of care. Physician Signature: Date:
--- NOTE | 2023-10-05 15:55 | HP.PTDCSUM ---
Discharge Summary D/C summary: It has been my pleasure to treat HARSHAD KRAMER referred by Dr. Nestor Galvez MD, with the diagnosis of cervico occiptial neuralgia for a total of 9 visit(s). Discharge Date: 10/05/23 Please see the following information for a summary of their discharge status. Subjective Subjective: Patient reports she stopped taking her medication, states it was making her crazier than she already is. Pain FRANCO: Pain Intensity (Out of 10): 0 Neck apin: Pain Intensity (Out of 10): 0 Objective Objective/Function: Able to resume horz abd, did need some cueing with Bilat ER to relax shoulder with better tech following. UT tightness L> R. Patient states she needs a total shoulder replacement to her Left shoulder but unable to have it d/t being sick and managing his appts. Goals Goal 1:: 40 degrees B cervical rotation without pain Goal 2:: Neck pain abolished and FRANCO 75% better overall Goal 3:: Patient I in management of condition Goal 4:: Sit with appropriate upright posture without cues. Goal 5:: 5 or better quickdash Plan Plan: Pt called and FRANCO are gone and is doing really well. Cancelled last visits due to 's health. Does not feel like she needs to return. D/C Information d/c sentence: If there are questions or concerns regarding this patient's physical therapy, please feel free to call me at [phone]. Thank you for the referral of this patient. Sincerely, Phi Pastor, DPT, OCS, CSCS Balance/Gait/Functional tests Balance/Special Test Scores Oswestry Neck Score: 14
== END 2023-09-05 19:00 | disposition home or self-care (01) ==
LOC: PT 10:30
PROVIDERS: PCP Family Medicine; Referring Provider Psychiatry & Neurology Neurology; Visit Provider Psychiatry & Neurology Neurology
DX: M54.81 Occipital neuralgia (principal)
CPT/HCPCS: 97110; 97140; 97161

== ENCOUNTER → 2024-01-18 | Outpatient (CLI) | payer MEDICARE, OTHER, SELFPAY ==
[2024-01-18 15:53] LABS: AST(SGOT) 20 U/L (15-37); Alanine Aminotransfer ALT/SGPT 19 U/L (13-56); Albumin, Serum 3.7 g/dL (3.2-5.0); Alkaline Phosphatase 71 U/L (45-117); Anion Gap 4 (5-15); BUN 19 mg/dL (7-18); BUN/Creat Ratio 23.7 RATIO (10-20); Bilirubin, Direct 0.09 mg/dL (0.00-0.30); Calcium,Total 9.2 mg/dL (8.5-10.1); Chloride 105 mmol/L (98-107); Cholesterol 257 mg/dL (200); EST Glomerular Filtration Rate 74 mL/min (>60); Est Glom Filt Rate - Afr Amer 90 mL/min (>60); Globulin 3.6 g/dL (2.2-4.2); Glucose 91 mg/dL (74-106); High Density Lipoprotein 72 mg/dL; Potassium 4.1 mmol/L (3.5-5.1); Protein, Total 7.3 g/dL (6.4-8.2); Sodium Level 138 mmol/L (136-145); Thyroid Stim Hormone (TSH) 1.13 uIU/mL (0.358-3.74); Triglycerides 75 mg/dL; Very Low Density Lipoprotein 15 mg/dL (5-40)
== END | disposition home or self-care (01) ==
LOC: LAB 13:47
PROVIDERS: PCP Family Medicine; Referring Provider Internal Medicine Cardiovascular Disease; Visit Provider Internal Medicine Cardiovascular Disease
DX: E78.00 Pure hypercholesterolemia, unspecified (principal); I25.10 Atherosclerotic heart disease of native coronary artery without angina pectoris
CPT/HCPCS: 36415; 80048; 80061; 80076; 84443

== ENCOUNTER → 2024-02-22 | Outpatient (CLI) | payer MEDICARE, OTHER, SELFPAY ==
--- NOTE | 2024-02-22 16:12 | BI_ITS ---
MAMMOGRAPHY - BILATERAL SCREENING REASON FOR EXAM: Female, 73 years old. Routine annual screening examination. PERTINENT HISTORY: Sisters with breast cancer. TECHNIQUE: Digital bilateral breast latisha (3D mammographic acquisition) in the CC and MLO projections. 2-D mediolateral oblique (MLO) and craniocaudad (CC) views of both breasts were obtained. CAD: Full Field Digital Mammography with Computer Added Detection was performed. COMPARISON: Comparison is made with prior study dated February 20, 2023 and December 10, 2021. FINDINGS: Breast Composition: There are scattered areas of fibroglandular density. There are no dominant masses or suspicious calcifications. Stable 6 mm well-defined nodule in the deep upper lateral aspect of the left breast. This is suggestive of a small lymph node. No other significant abnormalities are identified. There has been no significant change since the prior study. BI/SCRN MAMM (CAD)W/LATISHA BILAT IMPRESSION: Stable bilateral screening mammogram. Yearly follow-up mammogram recommended. (A) ASSESSMENT CATEGORY: BIRADS Category 2: Benign. A letter regarding these results will be sent to the patient by the facility within 30 days. Approximately 10% of breast cancers are not detected by mammography. A normal mammogram should not delay biopsy of a clinically suspicious abnormality. [id number] Electronically Signed: Ciro Reece MD at 8:50 EDT ,
== END | disposition home or self-care (01) ==
LOC: OPBI 16:01
PROVIDERS: PCP Family Medicine; Referring Provider Family Medicine; Visit Provider Family Medicine
DX: Z12.31 Encounter for screening mammogram for malignant neoplasm of breast (principal); Z80.3 Family history of malignant neoplasm of breast
CPT/HCPCS: 77063; 77067

== ENCOUNTER → 2024-03-25 | Outpatient (CLI) | payer MEDICARE, OTHER, SELFPAY ==
--- NOTE | 2024-03-25 16:15 | MRI_ITS ---
STUDY: MRI LEFT SHOULDER REASON FOR EXAM: Female, 73 years old. PRIMARY OSTEOARTHRITIS SUSPECTED -- SHOULDER PAIN, CHRONIC TECHNIQUE: Standardized fat and water weighted pulse sequences were obtained in all 3 orthogonal planes. COMPARISON: None. FINDINGS: There are chronic complete full-thickness tears of the distal supraspinatus and infraspinatus tendons, with 4.2 cm medial tendon retraction. There is subscapularis tendinosis. Normal teres minor tendon. There is moderate atrophy and fatty infiltration of the supraspinatus and infraspinatus muscles. Normal subscapularis muscle. Normal teres minor muscle. There is a moderate glenohumeral joint effusion with fluid communicating into the subacromial-subdeltoid bursa. Normal humeral head and visualized proximal humerus. Normal biceps labral complex. Normal intracapsular long biceps tendon. Normal labrum. Normal capsulo-ligamentous complex. Normal rotator interval. There is hypertrophic acromioclavicular arthrosis, with inferior osteophyte formation, with effacement of the torn end of the supraspinatus tendon (coronal T2 series 4 image 12). There is a Type II morphology (curved), with a neutral orientation. Normal visualized coracohumeral and coracoacromial ligaments. Normal quadrilateral space. Normal axillary space. Normal deltoid muscle. Normal trapezius muscle. 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 Subscapularis tendinosis. Moderate atrophy and fatty infiltration of the supraspinatus and infraspinatus muscles. Moderate glenohumeral joint effusion with fluid communicating into the subacromial-subdeltoid bursa. Hypertrophic acromioclavicular arthrosis, with inferior osteophyte formation, with effacement of the torn end of the supraspinatus tendon. Electronically Signed: Vinicius Schrader MD at 9:10 EDT ,
== END | disposition home or self-care (01) ==
LOC: MRI 16:13
PROVIDERS: PCP Family Medicine; Referring Provider Specialist; Visit Provider Specialist
DX: M19.012 Primary osteoarthritis, left shoulder (principal)
CPT/HCPCS: 73221

== ENCOUNTER 2024-04-30 10:00 | Outpatient (RCR) | payer MEDICARE, OTHER, SELFPAY ==
--- NOTE | 2024-04-16 13:58 | HP.PTEVAL ---
Patient's Visit Information Visit Information Visit Information: HARSHAD KRAMER is a 73 year old F referred to Physical Therapy by Dr. Neo Chambers MD with a diagnosis of L shoulder OA. Date of Evaluation: 04/16/24 Physical Therapist: Phi Pastor, DPT, OCS, CSCS Visit Plan Frequency: 2x /Week Duration: 4-6 Weeks Plan: 2x./week x 4-6 weeks as needed for. 1. ensure ROM ex at home 2. teach RC and scap strength to HEP 3. Spend some time with manual PROM L shoulder and grade 1 mobs. 4. may progress to general overall body ex for megan as she is more sedentary due to husbands health and needing to be at home. Subjective Subjective: Needs B shoulder reploacements but husbands health will limiti this for right now. L shoulder is worse adn hard to lie on it and it wakes her up at night. Posterior left shoulder pain for a long time. Wrosening in last 3 months. Has had previous injections. Dr. Chambers gave injection and it got relief 50%. That was 04/10 and still gets painfree at rest but with movement can get 7/10. Prior to injection it hurt worse to move it. No exercises for shoulder. Basic ADLs are getting done but hurts sometimes to reach behind her or reach up and out. Helps it down with the other arm. She is R handed. Hobbies: does everything outside due to husbands health and is limited and painful pulling and mowing. on hospice. Pain L shoulder: Pain Intensity (Out of 10): 0 Pain Intensity Range: 0 and 7 Objective Objective: Walks I into PT and transfers chair and bed I. Arms swing well and without pain at rest. L shoulder AROM flexion 145 vs 155 on R abduction slightly painful on L at 145 vs 155 R. er 20 L and 45 R, IR L4 B. pain on L. Scapular compensation with elevation On L elevation. reflexes 2/3 bi and triceps B. sensation UE WNL to gross lgiht touch B UE. cervical aROM is limited 30 ext adn 40 B rotations and h/o cervical fusion. - sulcus, - er lag, - drop arm, - apprehension. + L shoulder scour. Good scap ROM but depression is hard to maintain for patient . Balance/Special Test Scores Quick DASH Score: 34.0900 Goals Goal 1:: sleep without waking due to pain Goal Time Frame: 4-6 Weeks Goal 2:: Pt I in management of condition with aoppropriate ex and activity modification Goal Time Frame: 4-6 Weeks Goal 3:: Lift arm to side with less than 3/10 paoin and 50% better overall. Goal Time Frame: 4-6 Weeks Goal 4:: quickdash 16 or better. Goal Time Frame: 4-6 Weeks Rehabilitation Potential Physical Therapy Diagnosis: L shoulder stiffness and pain limiting sleep and funciton. Rehabilitation Potential: Fair Anticipated Interventions Patient/Client Instruction: Educate patient on: Condition and Plan of Care For the Purpose of:: To decrease pain, To increase ROM, To improve muscle performance and motor function and To increase tolerance to activity/condition/position Therapeutic Exercise to Include: Strength training, Postural training, Flexibilty training, Passive ROM and Active ROM For the Purpose of:: To decrease pain, To increase ROM and To improve nutrient delivery to tissue Manual Therapy Techniques to Include: Mobilization, Passive ROM and Soft tissue mobilization For the Purpose of:: To decrease pain and To increase ROM Thermo therapy (hot pack): Yes For the Purpose of:: To decrease pain Text: Thank you for the opportunity to evaluate your patient. For Medicare and Medicare HMO plans, please review the plan of care and approve it. It will need to be FAXED BACK to us at [phone] for Medicare purposes. For Medicare only, by signing this I certify the plan of care. Please let me know if there are questions or concerns regarding this plan of care. Physician Signature: Date:
--- NOTE | 2024-06-25 10:42 | HP.PT.NRP ---
Patient Information Patient Information: HARSHAD KRAMER was seen in my office for initial evaluation on 04/16/24. The following Plan of Care was established for this patient: POC Established Initial Frequency: 2x /Week Initial Duration: 4-6 Weeks Anticipated Interventions Patient/Client Instruction: Educate patient on: Condition and Plan of Care For the Purpose of:: To decrease pain, To increase ROM, To improve muscle performance and motor function and To increase tolerance to activity/condition/position Therapeutic Exercise to Include: Strength training, Postural training, Flexibilty training, Passive ROM and Active ROM For the Purpose of:: To decrease pain, To increase ROM and To improve nutrient delivery to tissue Manual Therapy Techniques to Include: Mobilization, Passive ROM and Soft tissue mobilization For the Purpose of:: To decrease pain and To increase ROM Thermo therapy (hot pack): Yes For the Purpose of:: To decrease pain Last Seen Last Seen: This patient was last seen in our office 04/30/24. Pertinent comments regarding their Physical therapy will appear below: Pt seen 5 visits of POC and was 50% better. Was to f/u a month later but her has recently and she cancelled that visit. I did contact her nad she is holding steady and does not think she can make it back in and opted for d/c. At this point I will be discontinuing this patient from physical therapy. I would be happy to see this patient again in the future if found appropriate by the physician. Thank you! Phi Pastor, DPT, OCS, CSCS Balance/Gait/Functional tests Balance/Special Test Scores Quick DASH Score: 34.0900
== END 2024-04-30 19:00 | disposition home or self-care (01) ==
LOC: PT 10:00
PROVIDERS: PCP Family Medicine; Referring Provider Specialist; Visit Provider Specialist
DX: S46.012D Strain of muscle(s) and tendon(s) of the rotator cuff of left shoulder, subsequent encounter (principal)
CPT/HCPCS: 97110; 97161

== ENCOUNTER → 2025-02-27 | Outpatient (CLI) | payer MEDICARE, OTHER, SELFPAY ==
--- OUTSIDE RECORDS SUMMARY | 2025-02-27 06:43 | XMS RPT_ITS | CCD ---
Author Organization [facility] Care Team Providers Care Brick Off Bearer Name Role Phone Elizabeth Harumi Y Unavailable Unavailable Elizabeth Harumi Y Unavailable Unavailable MD Gonzalez Cyril S Unavailable Giselle HOLCOMB, Leticia Armando Unavailable Unavailable MARTIN JUAREZ (PA) Unavailable Unavailable Agata Maradiaga DO Primary Care Provider Dr. Agata Maradiaga Primary Care Provider [phone] Dr. Agata Maradiaga Referring Provider Dr. Jona Xavier Attending Provider DR AGATA MARADIAGA DO A Primary Care Physician Dr. Jona Xavier Attending Provider [phone] NIKO Nichole Attending Provider [phone] Agata Maradiaga DO Primary Care Provider Dr. Agata Maradiaga Primary Care Provider [phone] Dr. Agata Maradiaga Referring Provider NIKO De Leon Attending Provider [phone] Sunny Gonzalez Attending Provider Dr. Sofia Dunn Referring Provider Dr. Agata Maradiaga Primary Care Provider [phone] Dr. Agata Maradiaga Referring Provider Dr. Martin Ochoa Attending Provider Corey SOCIAL INSURANCE ADMINISTRATOR, SOCIAL INSURANCE ADMINISTRATOR-Rajendra Alatorre Attending Provider OdellOLIVE Bauman Attending Provider Dr. Sunny Gonzalez Attending Provider Dr. Martin Ochoa Referring Provider Dr. Martin Ochoa Other Provider Dr. Agata Maradiaga Primary Care Provider [phone] Dr. Agata Maradiaga Referring Provider [phone] Martin Ochoa Attending Provider [phone] Lizandro Kimble Attending Provider [phone] Agata Maradiaga Primary Care Provider [phone] Dr. Agata Maradiaga Referring Provider Dr. Shayan Hardy Attending Provider Dr. Benny Moser Referring Provider Dr. Shayan Hardy Referring Provider [phone] Dr. Shayan Hardy Other Provider WILMER JUAREZ Attending Unavailable ASHWINI, AGATA Armando Primary Care Unavailable ASHWINI, AGATA A Primary Care Unavailable ALEX BACK Attending Unavailable WILMER JUAREZ Referring Unavailable AHSWINI, AGATA Armando Primary Care Unavailable Dr. Agata Maradiaga Primary Care Provider [phone] Agata Maradiaga Referring Provider Dr. Lizandro Kimble Attending Provider [phone] Martin Ochoa Attending Provider [phone] Martin Ochoa Other Provider Ashwini, Agata Armando Primary Care Provider [phone] DEVAN MAY Attending Unavailable BAVELPIDIO, DEVAN Referring Unavailable ASHWINI, AGATA Primary Care Unavailable BAVELPIDIO, DEVAN Attending Unavailable BAVIS, DEVAN Referring Unavailable ASHWINI, AGATA Primary Care Unavailable BAVELPIDIO, DEVAN Attending Unavailable ASHWINI, AGATA Referring Unavailable ASHWINI, AGATA Primary Care Unavailable Dr. Agata Maradiaga Primary Care Provider [phone] Dr. Agata Maradiaga Referring Provider Dr. Lizandro Kimble Attending Provider [phone] Jaskaran Sylvester Attending Unavailable Reyes, Jaskaran Referring Unavailable Agata Maradiaga Primary Care Unavailable Agata Maradiaga Referring Unavailable Ashwini, Agata Primary Care Unavailable AshwiniAgata prado Attending Unavailable Ashwini, Agata Primary Care Unavailable AshwiniAgata prado Attending Unavailable Ashwini, Agata Primary Care Unavailable Mari Caal NP Attending Unavailable Agata Maradiaga Referring Unavailable Jaskaran Sylvester Attending Unavailable ReyesJaskaran Referring Unavailable Ashwini, Agata Primary Care Unavailable Allergies Allergy Classification Reported Allergen(s) Allergy Type Date of Onset Reaction(s) Facility (4 sources) Adhesive bandage; Translations: [ADHESIVE BANDAGES] allergy to substance 04-30-20 13 [facility] Work Phone: [phone] (4 sources) NSAIDs drug allergy 12-09-19 16 GI Bleed [facility] Work Phone: (5 sources) pravastatin; Translations: [Pravastatin] Drug Allergy 04-30-20 13 EXTREME PAIN [facility] Work Phone: [phone] (8 sources) NKDA drug allergy 08-01-20 12 [facility] Work Phone: (4 sources) FLEXARIL drug allergy 04-30-20 13 [facility] Work Phone: [phone] (7 sources) Adhesive Tape; Translations: [ADHESIVE TAPE (ROSINS)] Propensity to adverse reactions (disorder) 01-17-20 08 Rash [facility] Repository (7 sources) cyclobenzaprine; Translations: [CYCLOBENZAPRINE HCL] Drug Allergy 02-05-20 10 Intolerance [facility] Repository (7 sources) pravastatin; Translations: [PRAVASTATIN SODIUM] Drug Allergy 08-10-20 05 Myalgia [facility] Repository (17 sources) Adhesive Tape; Translations: [adhesive tape] Allergy to substance 05-06-20 21 Rash [facility] (20 sources) cyclobenzaprine; Translations: [cyclobenzaprine] Drug Allergy 05-06-20 21 EXTREME WEAKNESS, LETHARGY [facility] Work Phone: (16 sources) Pravastatin Drug Allergy 05-06-20 21 MUSCLE PAIN [facility] (17 sources) NSAIDS (Non-Steroidal Anti-Inflamma; Translations: [NSAIDS (Non-Steroidal Anti-Inflamma] Propensity to adverse reactions 05-06-20 21 GI BLEED [facility] (1 source) Estradiol; Translations: [estradiol topical] Drug Allergy RASH/REDNESS FROM ADHESIVE [facility] (1 source) Non-steroidal anti-inflammatory agent; Translations: [nonsteroidal anti-inflammatory agents] Drug allergy GI BLEEDING [facility] (1 source) Adhesives (non-codified) Allergy to substance RASH/REDNESS [facility] (5 sources) Wound Dressings Drug Allergy 04-30-20 13 [facility] (1 source) cyclobenzaprine Drug Allergy 01-17-20 [facility] (1 source) ezetimibe Drug Allergy 01-17-20 [facility] (1 source) Pravastatin Drug Allergy 01-17-20 [facility] Rep[facility] (1 source) Chsyfjt-Lan-Taw Reductase Inhibitor Drug allergy (disorder) 01-17-20 [facility] Repository Medications Current Medications Medication Drug Class(es) Dates Sig (Normalized) Sig (Original) amitriptyline hydrochloride 25 mg oral tablet (5 sources) Tricyclic Antidepressant Start: 07-28-2023 End: 08-27-2023 take 0.5 tablet by mouth once daily in the evening, then take 1 tablet by mouth once daily in the evening, then take 2 tablets by mouth once daily in the evening amitriptyline (Elavil) 25 MG tablet Indications: New onset of headaches after age 50 Take half a tab po qpm suppertime for 7 days, then a full tab po QPM suppertime for 7 days, then two tabs po QPM suppertime thereafter 30 tablet 2 07/28/2023 Active Ascorbic Acid (5 sources) Vitamin C Ascorbic Acid (VITAMIN C ER PO) Take by mouth. 0 Active aspirin 81 mg delayed release oral tablet (20 sources) Nonsteroidal Anti-inflammatory Drug Start: 05-15-2015 take 1 tablet by mouth once daily at bedtime aspirin 81 mg chewable tablet Take 1 tablet by mouth daily at bedtime. 42 tablet 0 05/15/2015 Active Start: 04-30-2013 take 81 mg by mouth at bedtime Aspirin Active 81 MG PO AT BEDTIME May 30, 2016 11:00pm Start: 01-16-2013 take 1 tablet by pearl th twice daily ASPIRIN 325 MG TABS One tablet by mouth twice daily ASPIRIN [id number] Irasema Schwartz RN Start: 01-28-2011 ASPIRIN 81 MG TABS ASPIRIN [id number] María Gustafson RN Comment on above: Take 1 tablet by pearl th daily at bedtime. calcium ascorbate 500 mg oral tablet (8 sources) Start: 2 take 500 mg by mouth once daily Ascorbate Calcium (Vitamin C) Active 500 MG PO DAILY May 09, 2022 11:00pm calcium carbonate 1500 mg / cholecalciferol 800 unt oral tablet (16 sources) Vitamin D Start: 8 take 2 tablets by mouth once daily Calcium Carbonate-Vitamin D3 Active 2 TABLET PO DAILY@1500 May 10, 2018 11:00pm calcium carbonate 1500 mg / ergocalciferol 125 mg oral tablet (1 source) Provitamin D2 Compound Start: 9 take 1 tablet by mouth once daily calcium (as carbonate)-vitamin D 600 mg-125 intl units oral tablet Dose = 2 tab(s), Oral, Daily, # 270 tab(s), 0 Refill(s) Start Date: 12/18/18 Status: Ordered cetirizine hydrochloride 10 mg oral capsule (20 sources) Histamine-1 Receptor Antagonist Start: 2 Cetirizine Active 10 MG PO NEEDED April 27, 2022 8:21am Start: 12-18-2018 Zyrtec 10 mg o ral tablet Dose : 10 mg = 1 tab(s), Oral, qDay, PRN as needed for allergy symptoms, # 30 tab(s), 0 Refill(s) Start Date: 12/18/18 Status: Ordered Start: 05-31-2016 End: 04-27-2022 take 10 mg by mouth every other day Cetirizine Discontinued 10 MG PO EVERY OTHER DAY May 30, 2016 11:00pm April 27, 2022 8:23am Start: 04-30-2013 End: 06-13-2014 ZYRTEC ALLERGY 10 MG TABS as needed CETIRIZINE HCL [id number] Sunny Gonzalez MD Cetirizine HCl ( ZYRTEC ALLERGY PO) Take by mouth. 0 Active Clear Nails (5 sources) Start: 01-25-2023 take 1 tablet by pearl th once daily Clear Nails Active 1 TABLET SL/PO DAILY January 24, 2023 11:00pm Start: 01-25-2023 take 1 tablet by mouth once da selma Clear Nails Active 1 TABLET SL/PO DAILY January 25, 2023 12:00am D-Mannose (5 sources) Start: 01-25-2023 take 2100 mg by mout h once daily D-Mannose Active 2100 MG PO DAILY January 24, 2023 11:00pm Start: 01-25-2023 take 2100 mg by mouth once shawna ly D-Mannose Active 2100 MG PO DAILY January 25, 2023 12:00am D-MANNOSE PO (5 sources) D-MANNOSE PO Phil e by mouth. 0 Active fluticasone propionate 0.05 mg/actuat metered dose nasal spray (20 sources) Corticosteroid Start: 06-03-2023 fluticasone (Flonase) 50 MCG/ACT nasal spray Start: 12-18-2018 take 1 dose nasal ro jose carlos once daily at bedtime fluticasone proprionate NASAL 50 mcg/ spray Dose = 1 spray(s), Nostril, each, qHS, 0 Refill(s) Start Date: 12/18/18 Status: Ordered Start: 05-31-2016 Fluticasone Pr opionate Active 1 SPRAY NASAL AT BEDTIME May 30, 2016 11:00pm Start: 12-01-2014 take 1 spray(s) nasa l route once daily at bedtime fluticasone (FLONASE) 50 mcg/actuation nasal spray Use 1 [place] in each nostril daily at bedtime. 3 Bottle 3 12/01/2014 Active Comment on above: Use 1 [place] in each nostril daily at bedtime. gabapentin 100 mg oral capsule (20 sources) Anti-epileptic Agent Start: 07-20-2023 take 200 mg by mouth at bedtime Gabapentin Active 200 MG PO AT BEDTIME July 20, 2023 12:00am Start: 06-03-2023 gabapentin (Ne urontin) 300 MG capsule Start: 03-16-2023 take 100 mg by mouth once demarcus y Gabapentin Active 100 MG PO DAILY March 15, 2023 11:00pm Start: 03-16-2023 take 100 mg by mouth three times daily Gabapentin Active 100 MG PO THREE TIMES A DAY March 15, 2023 11:00pm Start: 04-27-2022 End: 03-16-2023 take 300 mg by mouth three times daily Gabapentin Discontinued 300 MG PO THREE TIMES A DAY April 26, 2022 11:00pm March 16, 2023 8:30am Start: 04-16-2020 End: 04-27-2022 take 400 mg by mouth three times daily Gabapentin Discontinued 400 MG PO THREE TIMES A DAY April 16, 2020 12:27pm April 27, 2022 8:21am Start: 12-17-2019 End: 04-16-2020 take 2 tablets by mouth twice daily Gabapentin Discontinued 200 MG PO TWICE A DAY 60 December 16, 2019 11:00pm April 16, 2020 12:28pm two tabs twice a day, Start: 07-14-2019 End: 04-16-2020 take 400 mg by mouth once daily in the morning, then take 800 mg by mouth once daily at bedtime Gabapentin Discontinued 400 MG PO .COMPLEX July 13, 2019 11:00pm April 16, 2020 12:28pm 400mg qam, 800mg qhs Start: 03-19-2019 End: 04-17-2019 Gabapentin Discontinued PO 9 0 March 18, 2019 11:00pm April 17, 2019 1:33pm Start: 12-18-2018 gabapentin 100 mg oral capsule Dose : 100 mg = 1 cap(s), Oral, TID, # 90 cap(s), 0 Refill(s) Start Date: 12/18/18 Status: Ordered Start: 11-26-2018 gabapentin (NE URONTIN) 100 mg capsule 700 mg. 0 11/26/2018 Active Start: 12-07-2011 take 1 tablet by pearl th three times daily NEURONTIN 300 MG CAPS One tablet by mouth three times daily and as directed GABAPENTIN [id number] Sunny Gonzalez MD Start: 12-07-2011 End: 12-09-2015 take 1 tablet by mouth twice daily NEURONTIN 300 MG CAPS One tablet by mouth twice daily GABAPENTIN [id number] Mary Kate Kramer PA-C Start: 01-28-2011 [facility] NEURONTIN 400 MG CAPS One tablet by mouth three times daily GABAPENTIN [id number] Laila Hernandez Comment on above: 700 mg. Lactobac Comb 5-Aoc-Gjgvzjeshk (Probiotic And Acidophilus) 300-250 million cell-mg Capsule (5 sources) Start: 01-25-2023 take 1 capsule by mouth once daily Lactobac Comb 2-Nmo-Gcazlskvvz (Probiotic And Acidophilus) 300-250 million cell-mg Capsule Active 1 CAP PO DAILY January 24, 2023 11:00pm Start: 01-25-2023 take 1 capsule by mo [facility] once daily Lactobac Comb 0-Yat-Zkovhmiiaq (Probiotic And Acidophilus) 300-250 million cell-mg Capsule Active 1 CAP PO DAILY January 25, 2023 12:00am 24 hr metoprolol succinate 25 mg extended release oral tablet (20 sources) beta-Adrenergic Ashli Start: 05-30-2023 metopr olol succinate XL (Toprol-XL) 25 MG 24 hr tablet Start: 12-01-2021 metoprolol suc cinate ER (TOPROL XL) 25 mg 24 hr tablet Start: 04-16-2021 End: 04-16-2021 take 50 mg by mouth once daily Metoprolol Succinate Di scontinued 50 MG PO DAILY April 16, 2021 12:28pm April 16, 2021 12:29pm Start: 04-16-2021 End: 04-16-2021 take 50 mg by mouth twice daily Metoprolol Succinate Discontinued 50 MG PO TWICE A DAY April 16, 2021 11:57am April 16, 2021 12:28pm Start: 05-06-2019 End: 04-16-2021 take 25 mg by mouth once daily Metoprolol Succinate Di scontinued 25 MG PO DAILY December 11, 2019 9:47am April 16, 2021 11:59am Start: 05-06-2019 End: 05-06-2019 take 25 mg by mouth once daily Metoprolol Succinate Di scontinued 25 MG PO DAILY May 05, 2019 11:00pm May 06, 2019 3:38pm Start: 12-18-2018 metoprolol suc cinate 50 mg oral capsule, extended release Dose : 50 mg = 1 cap(s), Oral, qDay, # 30 cap(s), 0 Refill(s) Start Date: 12/18/18 Status: Ordered Start: 06-25-2018 End: 05-01-2019 take 25 mg by mouth once daily Metoprolol Succinate Di scontinued 25 MG PO DAILY 90 December 24, 2018 10:06am May 01, 2019 3:59pm Start: 08-01-2012 End: 06-25-2018 take 50 mg by mouth once daily Metoprolol Succinate Di scontinued 50 MG PO DAILY May 30, 2016 11:00pm June 25, 2018 1:21pm Start: 01-28-2011 End: 08-01-2012 take 1 tablet by mouth twice daily METOPROLOL TARTRATE 25 MG TABS One tablet by mouth twice daily METOPROLOL TARTRATE [id number] Leticia Desai RN End: 02-16-2022 metoprolol succinate XL, mirna g acting, 50 mg 24 hr tablet Take 100 mg by mouth once daily. 0 02/16/2022 Discontinued Comment on above: Take 100 mg by mouth once daily. nitroglycerin 0.4 mg sublingual tablet (20 sources) Nitrate Vasodilator Start: 07-24-2018 Nitroglycerin Active 0.4 MG SL NEEDED July 24, 2018 12:00am Start: 10-23-2012 nitroglycerin sublingual (NITROQUICK) 0.4 mg SL tablet nitroglycerin Nitroglycerin [Nitrostat] 0.4 MG SL NEEDED PRN For CHEST PAIN July 24, 2018 Active 07-24-2018 [facility] ([id number]) 0 10/23/2012 Active Start: 10-23-2012 NITROSTAT 0.4 MG SUBL 1 tablet under tongue every 5 min up to 3 X NITROGLYCERIN [id number] Sunny Gonzalez MD Comment on above: nitroglycerin Nitrog lycerin [Nitrostat] 0.4 MG SL NEEDED PRN For CHEST PAIN July 24, 2018 Active 07-24-2018 [facility] ([id number]) omeprazole 40 mg delayed release oral capsule (20 sources) Proton Pump Inhibitor Start: 2 take 40 mg by mouth once daily Omeprazole Active 40 MG PO DAILY May 30, 2016 11:00pm Start: 01-28-2011 [facility] PRILOSEC 20 MG CPDR One tablet by mouth daily OMEPRAZOLE [id number] Laila Hernandez Comment on above: Take 1 capsule by [facility] once daily. predniSONE 1 mg oral tablet (20 sources) Corticosteroid Start: 07-01-2023 predniSONE (Deltasone) 1 MG tablet Start: 05-29-2023 take 2 mg by mouth once daily Prednisone Active 2 MG PO DAILY May 29, 2023 8:27am Start: 05-29-2023 Prednisone Act meghna 5 MG PO May 29, 2023 8:27am Start: 02-13-2023 End: 05-29-2023 Prednisone Discontinued 20 M G PO February 12, 2023 11:00pm May 29, 2023 8:27am Start: 04-27-2022 take 1 mg by mouth once daily Prednisone Active 1 MG PO DAILY April 27, 2022 9:22am Start: 12-16-2021 End: 03-16-2023 take 2 mg by mouth once daily Prednisone Discontinued 2 MG PO DAILY April 27, 2022 8:22am March 16, 2023 8:31am Start: 04-16-2021 End: 12-16-2021 take 6 mg by mouth once daily Prednisone Discontinued 6 MG PO DAILY April 16, 2021 11:56am December 16, 2021 4:41pm tapering dose Start: 12-11-2020 take 2 tablets by [facility] once daily predniSONE (DELTASONE) 1 mg tablet take 2 tablets by mouth once daily 60 tablet 2 12/11/2020 Active Start: 04-17-2019 End: 04-16-2021 take 3 mg by mouth once daily Prednisone Discontinued 3 MG PO DAILY April 17, 2019 1:53pm April 16, 2021 11:59am Start: 12-18-2018 predniSONE 1 m g oral delayed release tablet Dose : 4 mg = 4 tab(s), Oral, Every other day, # 5 tab(s), 0 Refill(s) Start Date: 12/18/18 Status: Ordered Start: 05-31-2016 End: 04-17-2019 take 4 mg by mouth once daily Prednisone Discontinued 4 MG PO DAILY February 23, 2018 1:47pm April 17, 2019 1:53pm Start: 10-31-2013 take 4 tablets by sd ut once daily PREDNISONE 1 MG TABS 4 tablets by mouth daily PREDNISONE [id number] Mary Kate Kramer PA-C Start: 10-31-2013 take 7 tablets by [facility] once daily PREDNISONE 1 MG TABS 7 tablets by mouth daily PREDNISONE [id number] Sunny Gonzalez MD Start: 01-28-2011 take 5 tablets by sd ut once daily PREDNISONE 1 MG TABS 5 tablets by mouth daily PREDNISONE [id number] Sunny Gonzalez MD Comment on above: take 2 tablets by [facility] once daily Probiotic Product (PROBIOTIC-10 PO) (5 sources) Probiotic Produc t (PROBIOTIC-10 PO) Take by mouth. 0 Active rOPINIRole 0.25 mg oral tablet (1 source) Nonergot Dopamine Agonist Start: 04-27-20 take 0.25 mg by mouth at bedtime Ropinirole Active 0.25 MG PO AT BEDTIME April 27, 2022 12:00am SUMAtriptan 50 mg oral tablet (5 sources) Serotonin-1b and Serotonin-1d Receptor Agonist Start: 07-28-20 End: 08-27-20 SUMAtriptan (Imitrex) 50 MG tablet Indications: New onset of headaches after age 50 Take 1 tablet (50 mg) by mouth Once as needed for migraine. May repeat dose once in 2 hours if no relief. Do not exceed 2 doses in 24 hours. 9 tablet 5 07/28/2023 Active temazepam 15 mg oral capsule (13 sources) Benzodiazepine Start: 01-26-20 take 15 mg by mouth at bedtime Temazepam Active 15 MG PO AT BEDTIME January 24, 2023 11:00pm Start: 09-19-2017 End: 02-16-2022 temazepam 15 mg oral capsule Dose : 15 mg = 1 cap(s), Oral, qHS, PRN for sleep, 0 Refill(s) Start Date: 12/18/18 Status: Ordered levothyroxine sodium 0.137 mg oral tablet (20 sources) l-Thyroxine Start: 02-08-2022 take 137 ug by mouth once daily Levothyroxine Active 137 MCG PO DAILY 90 May 09, 2022 11:00pm Start: 04-16-2021 End: 05-10-2022 take 1 tablet by mouth once daily Levothyroxine (Synthroid) 150 mcg tablet Discontinued 150 MCG PO DAILY April 15, 2021 11:00pm May 10, 2022 8:44am Start: 04-17-2019 End: 04-16-2021 take 137 ug by mouth once daily Levothyroxine Discontinued 137 MCG PO DAILY April 17, 2019 1:32pm April 16, 2021 12:01pm Start: 12-18-2018 Synthroid 125 mcg (0.125 mg) oral tablet Dose : 125 mcg = 1 tab(s), Oral, qDay, # 30 tab(s), 0 Refill(s) Start Date: 12/18/18 Status: Ordered Start: 10-31-2013 End: 02-16-2022 take 125 ug by mouth once daily Levothyroxine Discontinued 125 MCG PO DAILY May 30, 2016 11:00pm April 17, 2019 1:35pm Start: 10-31-2013 End: 12-31-2015 take 1 tablet by mouth once daily LEVOTHYROXINE SODIUM 150 MCG TABS One tablet by mouth daily LEVOTHYROXINE SODIUM [id number] Sunny Gonzalez MD Start: 01-28-2011 take 1 tablet by [facility]l once daily LEVOXYL 137 MCG TABS One tablet by mouth daily LEVOTHYROXINE SODIUM [id number] Laila Hernandez Comment on above: once daily. tiZANidine 2 mg oral tablet (5 sources) Central alpha-2 Adrenergic Agonist Start: 3 End: 3 take 1 tablet by mouth every eight hours as needed for muscle spasms tiZANidine (Zanaflex) 2 MG tablet Indications: Cervico-occipital neuralgia Take 1 tablet (2 mg) by mouth every 8 hours as needed for muscle spasms. 90 tablet 3 07/28/2023 Active traMADol hydrochloride 50 mg oral tablet (20 sources) Opioid Agonist Start: 1 take 50 mg by mouth twice daily Tramadol Active 50 MG PO TWICE A DAY April 15, 2021 11:00pm Start: 04-16-2021 take 50 mg by mouth once daily Tramadol Active 50 MG PO DAILY April 16, 2021 12:00am Start: 04-23-2019 End: 04-16-2020 take 50 mg by mouth every six hours Tramadol Discontinued 50 MG PO EVERY 6 HOURS April 23, 2019 1:53pm April 16, 2020 12:27pm Start: 07-24-2018 End: 04-17-2019 Tramadol Discontinued 100 MG PO 1500 July 24, 2018 12:00am April 17, 2019 1:33pm Start: 05-31-2016 End: 04-23-2019 take 50 mg by mouth twice daily Tramadol Discontinued 50 MG PO TWICE A DAY May 30, 2016 11:00pm April 23, 2019 1:53pm Start: 10-27-2015 traMADol (ULTR AM) 50 mg tablet Take one to two tablets every eight (8) hours as needed for pain. 450 tablet 1 10/27/2015 Active Start: 01-28-2011 [facility] daily ULTRAM 50 MG TABS One tablet by mouth four times daily TRAMADOL HCL [id number] Sunny Gonzalez MD Start: 01-28-2011 take 2 tablets by mo [facility] twice daily as needed ULTRAM 50 MG TABS Two tablets by mouth twice daily as needed TRAMADOL HCL [id number] Laila Hernandez Comment on above: Take one to two tabl ets every eight (8) hours as needed for pain. 24 hr venlafaxine 37.5 mg extended release oral capsule (20 sources) Serotonin and Norepinephrine Reuptake Inhibitor Start: 12-18-2018 venlafaxine 37.5 mg oral capsule, extended release Dose : 37.5 mg = 1 cap(s), Oral, qDay, # 30 cap(s), 0 Refill(s) Start Date: 12/18/18 Status: Ordered Start: 05-31-2016 take 37.5 mg by mouth at bedti tx Venlafaxine Active 37.5 MG PO AT BEDTIME May 30, 2016 11:00pm Start: 01-28-2011 take 1 capsule by [facility] once daily venlafaxine ER (EFFEXOR XR) 37.5 mg 24 hr capsule Indications: Polymyalgia rheumatica (HCC) Take 1 capsule by mouth once daily. 90 capsule 3 06/09/2016 Active Comment on above: Take 1 capsule by mo [facility] once daily. Completed/Discontinued Medications Medication Drug Class(es) Dates Sig (Normalized) Sig (Original) acetaminophen 325 mg / oxyCODONE hydrochloride 5 mg oral tablet (20 sources) Opioid Agonist Start: 06-10-2016 End: 09-15-2017 take 1 tablet by mouth four times daily as needed Oxycodone-Acetami nophen Discontinued 1 - 2 TABLET PO 4 TIMES DAILY NEEDED 40 June 10, 2016 3:00pm September 15, 2017 8:32am alendronic acid 35 mg oral tablet (8 sources) Bisphosphonate Start: 01-28-2011 End: 12-07-2011 take 1 tablet by mouth every week FOSAMAX 35 MG TABS 1 tablet by mouth weekly ALENDRONATE SODIUM [id number] Laila Hernandez amoxicillin 875 mg / clavulanate 125 mg oral tablet (20 sources) Penicillin-class Antibacterial Start: 05-31-2016 End: 06-10-2016 take 875 mg by mouth every twelve hours Amoxicillin-Pot Clavulanate Discontinued 875 MG PO Q12H May 30, 2016 11:00pm June 10, 2016 2:52pm Start: 05-25-2016 [facility] AUGMENTIN 875-125 MG TABS One tablet by mouth twice daily AMOXICILLIN-POT CLAVULANATE [id number] Devan Zaman MD 168 hr buprenorphine 0.005 mg/hr transdermal system (8 sources) Partial Opioid Agonist Start: 10-31-2013 End: 06-13-2014 BUTRANS 5 MCG/HR PTWK per Dr. Lozano BUPRENORPHINE [id number] Sunny Gonzalez MD calcium carbonate 1500 mg oral tablet (5 sources) Start: 07-06-2012 take 1 tablet by mouth twice daily calcium carbonate (CALTRATE 600) 600 mg (1,500 mg) Tab Take 1 tablet by mouth twice daily. 0 07/06/2012 Active Comment on above: Take 1 tablet by [facility] twice daily. calcium carbonate / vitamin D (9 sources) Start: 01-28-2011 take 1 tablet by mouth twice daily CALCIUM CARBONATE-VITAMIN D 600-125 MG-UNIT TABS One tablet by mouth twice daily CALCIUM CARBONATE-VITAMIN D [id number] Laila Hernandez Calcium Carbonat e-Vitamin D (CALCIUM 600+D PO) Take by mouth. 0 Active CALCIUM CARBONATE-VITAMIN D2 ORAL (5 sources) Start: 01-28-2011 take 5-20 tablets by mouth once CALCIUM CARBONATE-VITAMIN D2 ORAL calcium carbonate / vitamin D CALCIUM CARBONATE-VITAMIN D 600-125 MG-UNIT TABS One tablet by mouth twice daily CALCIUM CARBONATE-VITAMIN D [id number] [facility] [place] [facility] ([id number]) 0 01/28/2011 Active Comment on above: calcium carbonate / vitamin D CALCIUM CARBONATE-VITAMIN D 600-125 MG-UNIT TABS One tablet by mouth twice daily CALCIUM CARBONATE-VITAMIN D [id number] [facility] [place]-2011 [facility] ([id number]) carvedilol 12.5 mg oral tablet (16 sources) alpha-Adrenergic Ashli, beta-Adrenergic Ashli Start: 05-01-2019 End: 05-06-2019 take 1 tablet by mouth twice daily at mealtime Carvedilol (Coreg) 12.5 mg tablet Discontinued 12.5 MG PO TWICE A DAY April 30, 2019 11:00pm May 06, 2019 9:45am must administer with a meal/food GLUCOSAMINE-CHONDROITI N CAPS (8 sources) Start: 01-28-2011 End: 06-13-2014 take 1 tablet by mouth once daily GLUCOSAMINE-CHONDROIT IN CAPS One tablet by mouth daily GLUCOSAMINE-CHONDROIT IN CAPS [id number] Sunny Gonzalez MD Start: 01-28-2011 take 1 tablet by [facility] once daily GLUCOSAMINE-CHONDROITIN CAPS One tablet by mouth daily GLUCOSAMINE-CHONDROITIN CAPS [id number] [facility] [place] ciprofloxacin 500 mg oral tablet (4 sources) Quinolone Antimicrobial Start: 01-14-2016 End: 01-17-2016 take 1 tablet by mouth twice daily CIPROFLOXACIN HCL 500 MG TABS One tablet by mouth twice daily CIPROFLOXACIN HCL [id number] Agata Maradiaga DO clopidogrel 75 mg oral tablet (20 sources) P2Y12 Platelet Inhibitor Start: 01-28-2011 End: 03-23-2020 take 75 mg by mouth once daily Clopidogrel Discontinued 75 MG PO DAILY February 18, 2019 12:17pm March 23, 2020 12:03pm Comment on above: Take 1 tablet by [facility] once daily. CPAP (5 sources) Start: 05-23-2007 CPAP nightly 0 05/23/2007 Active Comment on above: nightly diazePAM 5 mg oral tablet (20 sources) Benzodiazepine Start: 06-10-2016 End: 02-23-2018 take 5 mg by mouth four times daily as needed Diazepam Discontinued 5 MG PO 4 TIMES DAILY NEEDED June 10, 2016 3:00pm February 23, 2018 1:46pm ergocalciferol (16 sources) Provitamin D2 Compound Start: 10-29-2012 VITAMIN D (ERGOCALCIFEROL) 10503 UNIT CAPS 1 tablet every 2 weeks ERGOCALCIFEROL [id number] Sunny Gonzalez MD Start: 10-29-2012 End: 06-14-2016 VITAMIN D (ERGOCALCIFEROL) 5 0000 UNIT CAPS 1 tablet every 2 weeks ERGOCALCIFEROL [id number] Sunny Gonzalez MD Start: 10-29-2012 VITAMIN D (ERG OCALCIFEROL) 44953 UNIT CAPS 1 tablet every week ERGOCALCIFEROL [id number] Sunny Gonzalez MD Start: 01-28-2011 VITAMIN D (ERG OCALCIFEROL) 64974 UNIT CAPS 1 tablet every other week ERGOCALCIFEROL [id number] Laila Hernandez estradiol 1 mg oral tablet (20 sources) Estrogen Start: 05-31-2016 End: 02-23-2018 take 1 mg by mouth at bedtime Estradiol Discontinued 1 MG PO AT BEDTIME May 30, 2016 11:00pm February 23, 2018 1:46pm Start: 01-28-2011 ESTRACE 1 MG T ABS ESTRADIOL [id number] Sunny Gonzalez MD synthetic conjugated estrogens, a 0.625 mg oral tablet (4 sources) Start: 01-28-2011 take 1 tablet by mouth once daily CENESTIN 0.625 MG TABS One tablet by mouth daily ESTROGENS CONJ SYNTHETIC A [id number] Laila Hernandez ferrous sulfate 200 mg oral tablet (8 sources) Start: 01-28-2011 End: 12-07-2011 take 1 tablet by mouth twice daily FEOSOL 200 (65 Fe) MG TABS One tablet by mouth twice daily FERROUS SULFATE DRIED [id number] Leticia Desai RN gadobutrol (Gadavist) injection 8.6 mL (1 source) Start: 09-05-2023 End: 09-05-2023 gadobutrol (Gadavist) injection 8.6 mL hydroxychloroquine sulfate 200 mg oral tablet (8 sources) Antirheumatic Agent Start: 06-13-2014 End: 12-18-2014 take 1 tablet by mouth twice daily PLAQUENIL 200 MG TABS One tablet by mouth twice daily HYDROXYCHLOROQUINE SULFATE [id number] Sunny Gonzalez MD levoFLOXacin 500 mg oral tablet (20 sources) Quinolone Antimicrobial Start: 05-25-2016 End: 09-15-2017 Levofloxacin Discontinued 500 MG PO .QDAILY June 10, 2016 3:00pm September 15, 2017 8:32am lisinopril 5 mg oral tablet (20 sources) Angiotensin Converting Enzyme Inhibitor Start: 08-16-2019 End: 11-25-2022 take 5 mg by mouth once daily Lisinopril Discontinued 5 MG PO DAILY September 07, 2021 12:33pm November 25, 2022 1:11pm meloxicam 15 mg oral tablet (8 sources) Nonsteroidal Anti-inflammatory Drug Start: 01-28-2011 End: 12-07-2011 take 1 tablet by mouth once daily MOBIC 15 MG TABS One tablet by mouth daily MELOXICAM [id number] Laila Hernandez progesterone 200 mg oral capsule (20 sources) Progesterone Start: 01-28-2011 End: 02-23-2018 take 200 mg by mouth at bedtime Progesterone Micronized Discontinued 200 MG PO AT BEDTIME May 30, 2016 11:00pm February 23, 2018 1:47pm sucralfate 1000 mg oral tablet (8 sources) Aluminum Complex Start: 12-07-2011 End: 08-01-2012 take 1 tablet by mouth twice daily CARAFATE 1 GM TABS One tablet by mouth twice daily SUCRALFATE [id number] Leticia Desai RN triamcinolone acetonide 40 mg/ml injectable suspension (20 sources) Corticosteroid Start: 02-11-2020 End: 02-11-2020 Kenalog (triamcinolone acetonide) 40 mg/mL suspension for injection Discontinued 80 MG INTRAARTIC ONCE February 11, 2020 9:24am February 11, 2020 10:02am Start: 08-13-2019 End: 08-13-2019 Kenalog (triamcinolone aceto nide) 40 mg/mL suspension for injection Discontinued 80 MG INTRAARTIC ONCE August 13, 2019 3:04pm August 13, 2019 3:53pm Start: 01-18-2019 End: 01-18-2019 Kenalog (triamcinolone aceto nide) 40 mg/mL suspension for injection Discontinued 20 MG TENDON ONCE 0.5 January 18, 2019 7:41am January 18, 2019 8:33am Start: 04-20-2018 End: 04-20-2018 Kenalog (triamcinolone aceto nide) 40 mg/mL suspension for injection Discontinued 40 MG INTRAARTIC ONCE 1 April 20, 2018 7:48am April 20, 2018 8:22am Start: 09-15-2017 End: 09-15-2017 Kenalog (triamcinolone aceto nide) 10 mg/mL suspension for injection Discontinued 10 MG INTRAARTIC ONCE September 15, 2017 10:18am September 15, 2017 10:20am Problems Active Problems Problem Classification Problem Date Documented Date Episodic/Chronic Abdominal hernia (20 sources) Umbilical hernia; Translations: [Umbilical hernia without obstruction or gangrene] 12-05-2022 Episodic Abdominal pain (13 sources) Left inguinal pain; Translations: [Left lower quadrant pain] 08-29-2022 Episodic Allergic reactions (11 sources) Environmental allergy; Translations: [Other allergy status, other than to drugs and biological substances] Episodic Anxiety disorders (1 source) Generalized anxiety disorder 01-17-2020 Chronic Cardiac dysrhythmias (20 sources) Supraventricular tachycardia; Translations: [Premature atrial contraction] Onset: 09-28-2001 01-28-2011 Chronic Chronic ulcer of skin (16 sources) Ulcer of lower extremity; Translations: [Non-pressure chronic ulcer of unspecified part of left lower leg with fat layer exposed] 04-16-2020 Chronic Coronary atherosclerosis and other heart disease (20 sources) Coronary atherosclerosis; Translations: [Coronary arteriosclerosis] Onset: 01-28-2011 01-28-2011 Chronic Disorders of lipid metabolism (20 sources) Hyperlipidemia; Translations: [Hyperlipidemia, unspecified] Onset: 11-24-2005 01-28-2011 Chronic Gastroduodenal ulcer (except hemorrhage) (5 sources) Peptic ulcer; Translations: [Peptic ulcer, site unspecified, unspecified as acute or chronic, without hemorrhage or perforation] Onset: 11-15-2011 12-30-2011 Chronic Headache; including migraine (9 sources) Temporal headache; Translations: [Right sided temporal headache] 01-23-2023 Episodic Headache; including migraine (2 sources) Headache; including migraine; Translations: [Headache, unspecified] Onset: 09-05-2023 Heart valve disorders (5 sources) Mitral valve prolapse; Translations: [Nonrheumatic mitral (valve) prolapse] 07-06-2012 Chronic Immunizations and screening for infectious disease (18 sources) Contact with or exposure to other viral diseases; Translations: [Exposure to confirmed case of COVID-19] Episodic Menopausal disorders (10 sources) Atrophic vaginitis; Translations: [Postmenopausal atrophic vaginitis] Onset: 01-17-2008 07-06-2012 Chronic Mood disorders (1 source) Recurrent major depressive episodes, moderate 01-17-2020 Chronic Nonmalignant breast conditions (5 sources) Fibrocystic disease of breast; Translations: [Diffuse cystic mastopathy of unspecified breast] 07-06-2012 Chronic Nonspecific chest pain (20 sources) Precordial pain; Translations: [Chest pain, unspecified] Onset: 01-28-2011 Resolved: 12-31-2015 01-28-2011 Episodic Nutritional deficiencies (5 sources) Vitamin D deficiency; Translations: [Vitamin D deficiency, unspecified] Onset: 12-05-2006 10-02-2015 Chronic Open wounds of extremities (20 sources) Open wound of left lower leg; Translations: [Unspecified open wound, left lower leg, initial encounter] 04-16-2020 Episodic Osteoarthritis (6 sources) Degenerative joint disease involving multiple joints; Translations: [Degenerative joint disease of shoulder region] Onset: 12-31-2015 12-31-2015 Chronic Other acquired deformities (2 sources) Scoliosis of lumbar spine; Translations: [Other secondary scoliosis, lumbar region] 12-15-2022 Chronic Other acquired deformities (8 sources) Other secondary scoliosis, lumbar region; Translations: [Scoliosis associated with other conditions] 12-15-2022 Chronic Other connective tissue disease (20 sources) Polymyalgia rheumatica; Translations: [Polymyalgia rheumatica] Onset: 08-10-2005 12-31-2015 Chronic Other connective tissue disease (12 sources) Polymyalgia rheumatica; Translations: [Polymyalgia rheumatica] Chronic Other connective tissue disease (1 source) History of revision of left total knee arthroplasty; Translations: [Presence of left artificial knee joint] Chronic Other connective tissue disease (1 source) Myositis 12-18-2018 Episodic Other endocrine disorders (4 sources) Adrenal cortical hypofunction; Translations: [Unspecified adrenocortical insufficiency] Onset: 12-31-2015 12-31-2015 Chronic Other endocrine disorders (16 sources) Hypocortisolism secondary to another disorder; Translations: [Other adrenocortical insufficiency] 04-26-2022 Chronic Other endocrine disorders (7 sources) Other adrenocortical insufficiency; Translations: [Glucocorticoid deficiency] Chronic Other hereditary and degenerative nervous system conditions (4 sources) Restless legs; Translations: [Restless legs syndrome] Onset: 12-31-2015 12-31-2015 Chronic Other non-traumatic joint disorders (20 sources) Pain in left knee; Translations: [Pain in joint, lower leg] Onset: 05-04-2022 Episodic Other nutritional; endocrine; and metabolic disorders (5 sources) Obese class I; Translations: [Obesity, unspecified] Onset: 03-12-2019 03-12-2019 Chronic Prolapse of female genital organs (10 sources) Incomplete uterovaginal prolapse; Translations: [Incomplete uterovaginal prolapse] Onset: 01-17-2008 04-01-2008 Chronic Residual codes; unclassified (5 sources) Sleep apnea; Translations: [Sleep apnea, unspecified] Onset: 04-04-2006 10-02-2015 Chronic Spondylosis; intervertebral disc disorders; other back problems (11 sources) Thoracic spondylosis; Translations: [Spondylosis without myelopathy or radiculopathy, thoracic region] 07-06-2012 Chronic Spondylosis; intervertebral disc disorders; other back problems (20 sources) Low back pain; Translations: [Low back pain] Onset: 07-28-2023 12-15-2022 Episodic Superficial injury; contusion (20 sources) Contusion of left lower leg, initial encounter; Translations: [Contusion of left lower leg] Onset: 05-25-2016 05-26-2016 Episodic Thyroid disorders (20 sources) Hypothyroidism, unspecified; Translations: [Hypothyroidism] Onset: 06-12-2015 Resolved: 12-31-2015 06-12-2015 Chronic Unclassified (20 sources) Obstructive sleep apnea syndrome; Translations: [Obstructive sleep apnea (adult) (pediatric)] Onset: 12-31-2015 12-31-2015 Chronic Unclassified (4 sources) Preoperative cardiovascular examination ; Translations: [Encounter for preprocedural cardiovascular examination] Onset: 06-08-2016 06-08-2016 Unclassified (4 sources) Long-term drug therapy; Translations: [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] Onset: 12-09-2015 07-10-2017 Unclassified (1 source) Pain, unspecified; Translations: [Pain, unspecified] Onset: 12-14-2017 Viral infection (16 sources) Disease caused by 2019-nCoV; Translations: [COVID-19] 04-15-2022 Episodic Past or Other Problems Problem Classification Problem Date Documented Da te Episodic/Chronic Cancer of cervix (6 sources) Cervical atypism; Translations: [Atypical squamous cells of undetermined significance on cytologic smear of cervix (ASC-US)] Onset: 01-17-2008 09-06-2021 Episodic Coronary atherosclerosis and other heart disease (5 sources) Coronary angioplasty status; Translations: [Presence of coronary angioplasty implant and graft] Onset: 12-14-2007 01-28-2011 Episodic Genitourinary symptoms and ill-defined conditions (4 sources) Dysuria; Translations: [Dysuria] Onset: 01-12-2016 Resolved: 01-15-2016 01-13-2016 Episodic Mycoses (5 sources) Onychomycosis due to dermatophyte ; Translations: [Tinea unguium] Onset: 08-08-2006 07-06-2012 Episodic Other aftercare (4 sources) Other longterm (current) drug therapy; Translations: [Other longterm (current) drug therapy] Onset: 12-09-2015 12-09-2015 Episodic Other aftercare (7 sources) Patient encounter status; Translations: [Encounter for follow-up examination after completed treatment for conditions other than malignant neoplasm] Onset: 04-01-2008 12-22-2020 Episodic Other bone disease and musculoskeletal deformities (5 sources) Disorder of skeletal system; Translations: [Disorder of bone, unspecified] Onset: 11-24-2005 09-06-2021 Episodic Other connective tissue disease (5 sources) Muscle pain; Translations: [Myalgia and myositis, unspecified] Onset: 08-08-2006 12-05-2006 Episodic Other screening for suspected conditions (not mental disorders or infectious disease) (1 source) Encounter for screening mammogram for malignant neoplasm of breast; Translations: [Encounter for screening mammogram for malignant neoplasm of breast] Onset: 02-27-2024 Episodic Unclassified (16 sources) Body mass index (BMI) 27.0-27.9, adult; Translations: [Family history of ischemic heart disease and other diseases of the circulatory system] Onset: 10-31-2013 Resolved: 12-31-2015 10-31-2013 Episodic Results Test Name Value Interpretation Reference Range Facility Cardiology Visit Reporton Cardiology Visit Report [facility] [address] [place] [address] OFFICE VISIT Date of Service: 01/16/25 MR#: [id number] Acct: [id number] Name: EMELYN KRAMER Rep #: [id number] : 1950 Provider: SONG villaseñor Age/Sex: 74/F Location: [facility] [place] Status: Signed HPI HPI History of Present Illness Details: EMELYN KRAMER, is a 74 F who presents to the office today for a cardiovascular follow-up visit. She is a lady with a history of coronary disease status post angioplasty and stenting of the left anterior descending artery in 2007. She has undergone repeat cardiac catheterization which have demonstrated previously patent stents. She did have an episode of chest discomfort in December 2015 and underwent a stress test where she exercised to a workload of 10.1 metabolic equivalents. No evidence of ischemia was noted and excellent functional capacity was recorded. She had a another stress test completed on 05/11/2018 after being admitted for chest pain. This was negative for ischemia. She also has a history of SVT status post ablation in 2000 and 2001 at [facility], hyperlipidemia, GI bleed, hypothyroidism, adrenal sufficiency with steroid therapy, obesity, and obstructive sleep apnea with CPAP therapy. From a cardiac standpoint, the patient is doing well. She denies any palpitations, chest pain, pressure or heaviness. She denies SOB, Orthopnea, and PND. She does not have bleeding issues; no blood in urine, stool, or nosebleeds. She denies any decrease in energy level, myalgias, or claudication. She does not have edema, or sudden weight gain. She does have occasional lightheadedness with quick positional changes. She denies dizziness, syncopal or near syncopal episodes, and headaches. Intake Vital Signs 01/18/24 13:01 01/16/25 06:42 Height 5 ft 5 in 5 ft 5 in Weight: 170 lb BMI 28.3 BP 159/76 H Blood Pressure Location Lt brachial Position Sitting Respiration 18 Pulse 66 Pulse Source Monitor Pulse Oximetry (%) 98 Intake Visit Reasons: 1 Y FU Last Code Striper Required: No Is patient in pain?: No Allergies adhesive tape Allergy (Verified 01/16/25 10:02) Rash pravastatin (From Pravachol) Allergy (Verified 01/16/25 10:02) MUSCLE PAIN Vhlkhnd-XJI-LkZ Reductase Inhibitor Adverse Reaction (Severe, Verified 01/16/25 10:02) myalgias ezetimibe (From Zetia) Adverse Reaction (Unknown, Verified 01/16/25 10:02) myalgias cyclobenzaprine (From Flexeril) Adverse Reaction (Verified 01/16/25 10:02) EXTREME WEAKNESS NSAIDS (Non-Steroidal Anti-Inflamma Adverse Reaction (Verified 01/16/25 10:02) GI BLEED Medications ???Medication ???Instructions ???Recorded ???Confirmed ???Type aspirin 81 mg tablet,delayed 81 mg PO QHS heart health 05/31/16 01/16/25 History release fluticasone propionate 50 1 spray NASAL QHS nasal lubricant 05/31/16 01/16/25 History mcg/actuation nasal spray,suspension omeprazole 40 mg capsule,delayed 40 mg PO DAILY GERD 05/31/1601/16 History release venlafaxine 37.5 mg tablet 37.5 mg PO QHS depression 05/31/16 01/16/25 History calcium 600 mg (as 2 tab PO DAILY@1500 supplement 01/16/25 History carbonate)-vitamin D3 20 mcg (800 unit) tablet clopidogrel 75 mg tablet 75 mg PO DAILY heart health #90 01/16/25 Rx tabs metoprolol succinate 25 mg 25 mg PO DAILY 04/16/21 01/16/25 H istory tablet,extended release 24 hr tramadol 50 mg tablet 50 mg PO BID 04/16/21 01/16/25 His tory cetirizine 10 mg capsule 10 mg PO PRN PRN ALLERGIES 2 01/16/25 History ascorbate calcium (vitamin C) 500 500 mg PO DAILY 05/10/22 01/16/25 History mg tablet levothyroxine 137 mcg tablet 137 mcg PO DAILY #90 tabs 05/10/22 01/16/25 Rx Clear Nails 1 tab PO/SL DAILY 01/25/23 5 History Lactobacillus comb 1 cap PO DAILY 01/25/23 01/16/25 H istory no.0-WAI-cgpmbbgzni 300 million cell-250 mg capsule (Probiotic and Acidophilus) d-mannose 500 mg capsule 2,100 mg PO DAILY 01/25/23 5 History temazepam 15 mg capsule 15 mg PO QHS PRN Sleep 01/25/23 History gabapentin 100 mg capsule 100 mg PO DAILY 03/16/23 01/16/25 History prednisone 20 mg tablet 2 mg PO DAILY 05/29/23 01/16/25 Hi story gabapentin 100 mg capsule 200 mg PO QHS 07/20/23 01/16/25 Hi story alirocumab 150 mg/mL subcutaneous 150 mg subcut Q2W #6 mL 12/16/24 01/16/25 Rx pen injector (Praluent Pen) Have you fallen in the past year?: Yes [facility] Medical History (Reviewed 01/16/25 @ 10:03 by Mari Caal SOCIAL INSURANCE ADMINISTRATOR, SOCIAL INSURANCE ADMINISTRATOR-C) Headache Polyp of esophagus Occipital neuralgia of right side Umbilical hernia Wears glasses History of steroid therapy Osteoporosis Frequent UTI Anemia Restless legs Injury of head and neck Injury of back Migrain (more content not included)... Normal [facility] Inital Evaluation (1) - PTon 04-16-2024 Inital Evaluation (1) - PT [facility] Physical Therapy [facility] [place] [address] / REHABILITATION SERVICES INITIAL EVALUATION MR#: [id number] Acct: [id number] Name: EMELYN KRAMER Rep #: [id number] : 1950 73 From: Jennifer Pastor DPT, OCS, CSCS Referring Dr.: Dr. Jaskaran Sylvester MD Status: RE G RCR Insurance: MEDICARE PART A B [facility] Patient's Visit Information Visit Information Visit Information: EMELYN KRAMER is a 73 year old F referred to Physical Therapy by Dr. Jaskaran Sylvester MD with a diagnosis of L shoulder OA. Date of Evaluation: 04/16/24 Physical Therapist: Jennifer Pastor DPT, SHAKIRA, CSCS Visit Plan Frequency: 2x /Week Duration: 4-6 Weeks Plan: 2x./week x 4-6 weeks as needed for. 1. ensure ROM ex at home 2. teach RC and scap strength to HEP 3. Spend some time with manual PROM L shoulder and grade 1 mobs. 4. may progress to general overall body ex for patinet as she is more sedentary due to husbands health and needing to be at home. Subjective Subjective: Needs B shoulder reploacements but husbands health will limiti this for right now. L shoulder is worse adn hard to lie on it and it wakes her up at night. Posterior left shoulder pain for a long time. Wrosening in last 3 months. Has had previous injections. Dr. Sylvester gave injection and it got relief 50%. That was 04/10 and still gets painfree at rest but with movement can get 7/10. Prior to injection it hurt worse to move it. No exercises for shoulder. Basic ADLs are getting done but hurts sometimes to reach behind her or reach up and out. Helps it down with the other arm. She is R handed. Hobbies: does everything outside due to husbands health and is limited and painful pulling and mowing. on hospice. Pain L shoulder: Pain Intensity (Out of 10): 0 Pain Intensity Range: 0 and 7 Objective Objective: Walks I into PT and transfers chair and bed I. Arms swing well and without pain at rest. L shoulder AROM flexion 145 vs 155 on R abduction slightly painful on L at 145 vs 155 R. er 20 L and 45 R, IR L4 B. pain on L. Scapular compensation with elevation On L elevation. reflexes 2/3 bi and triceps B. sensation UE WNL to gross lgiht touch B UE. cervical aROM is limited 30 ext adn 40 B rotations and h/o cervical fusion. - sulcus, - er lag, - drop arm, - apprehension. + L shoulder scour. Good scap ROM but depression is hard to maintain for patient . Balance/Special Test Scores Quick DASH Score: 34.0900 Goals Goal 1:: sleep without waking due to pain Goal Time Frame: 4-6 Weeks Goal 2:: Pt I in management of condition with aoppropriate ex and activity modification Goal Time Frame: 4-6 Weeks Goal 3:: Lift arm to side with less than 3/10 paoin and 50% better overall. Goal Time Frame: 4-6 Weeks Goal 4:: quickdash 16 or better. Goal Time Frame: 4-6 Weeks Rehabilitation Potential Physical Therapy Diagnosis: L shoulder stiffness and pain limiting sleep and funciton. Rehabilitation Potential: Fair Anticipated Interventions Patient/Client Instruction: Educate patient on: Condition and Plan of Care For the Purpose of:: To decrease pain, To increase ROM, To improve muscle performance and motor function and To increase tolerance to activity/condition/pos ition Therapeutic Exercise to Include: Strength training, Postural training, Flexibilty training, Passive ROM and Active ROM For the Purpose of:: To decrease pain, To increase ROM and To improve nutrient delivery to tissue Manual Therapy Techniques to Include: Mobilization, Passive ROM and Soft tissue mobilization For the Purpose of:: To decrease pain and To increase ROM Thermo therapy (hot pack): Yes For the Purpose of:: To decrease pain Text: Thank you for the opportunity to evaluate your patient. For Medicare and Medicare HMO plans, please review the plan of care and approve it. It will need to be FAXED BACK to us at [phone] for Medicare purposes. For Medicare only, by signing this I certify the plan of care. Please let me know if there are questions or concerns regarding this plan of care. Physician Signature: Date:__ 04/16/24 1352 CC: Dr. Agata Maradiaga DO; Dr. Jaskaran Sylvester MD EBG Signed Normal [facility] Upper Ext Joint Only(Routine )on 03-25-2024 Upper Ext Joint Only(Routine) [facility] Imaging Services [address] [place] [id number] Upper Ext Joint Only(Routine) MR#: [id number] Acct: [id number] Name: EMELYN KRAMER Rep #: [id number] : 1950 F 73 From: Vinicius Schrader MD PCP: Dr. Agata Mraadiaga DO Status: REG CLI Study: Upper Ext Joint Only(Routine) Date of Exam: 0 03/25/24 Exam# [id number] Ordering Dr: Jaskaran Sylvester MD [id number] STUDY: MRI LEFT SHOULDER REASON FOR EXAM: Female, 73 years old. PRIMARY OSTEOARTHRITIS SUSPECTED -- SHOULDER PAIN, CHRONIC TECHNIQUE: Standardized fat and water weighted pulse sequences were obtained in all 3 orthogonal planes. COMPARISON: None. FINDINGS: There are chronic complete full-thickness tears of the distal supraspinatus and infraspinatus tendons, with 4.2 cm medial tendon retraction. There is subscapularis tendinosis. Normal teres minor tendon. There is moderate atrophy and fatty infiltration of the supraspinatus and infraspinatus muscles. Normal subscapularis muscle. Normal teres minor muscle. There is a moderate glenohumeral joint effusion with fluid communicating into the subacromial-subdeltoid bursa. Normal humeral head and visualized proximal humerus. Normal biceps labral complex. Normal intracapsular long biceps tendon. Normal labrum. Normal capsulo-ligamentous complex. Normal rotator interval. There is hypertrophic acromioclavicular arthrosis, with inferior osteophyte formation, with effacement of the torn end of the supraspinatus tendon (coronal T2 series 4 image 12). There is a Type II morphology (curved), with a neutral orientation. Normal visualized coracohumeral and coracoacromial ligaments. Normal quadrilateral space. Normal axillary space. Normal deltoid muscle. Normal trapezius muscle. 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 Subscapularis tendinosis. Moderate atrophy and fatty infiltration of the supraspinatus and infraspinatus muscles. Moderate glenohumeral joint effusion with fluid communicating into the subacromial-subdeltoid bursa. Hypertrophic acromioclavicular arthrosis, with inferior osteophyte formation, with effacement of the torn end of the supraspinatus tendon. Electronically Signed: Vinicius Schrader MD at 9:10 EDT Reading Location ID and State: [facility] / [place] , Service support , CC: Dr. Agata Maradiaga DO; Dr. Jaskaran Sylvester MD [facility] Firer/Fireman: Signed Normal [facility] SCRN MAMM (CAD)W/LATISHA BILATo n 02-22-2024 SCRN MAMM (CAD)W/LATISHA BILAT [facility] Imaging Services [address] [place] [id number] SCRN MAMM (CAD)W/LATISHA BILAT MR#: [id number] Acct: [id number] Name: EMELYN KRAMER Rep #: [id number] : 1950 F 73 From: Ciro wright MD PCP: Dr. Agata Maradiaga DO Status: REG CLI Study: SCRN MAMM (CAD)W/LATISHA BILAT Date of Exam: 02/09 12/02 Exam# [id number] Ordering Dr: Agata Maradiaga DO [id number] MAMMOGRAPHY - BILATERAL SCREENING REASON FOR EXAM: Female, 73 years old. Routine annual screening examination. PERTINENT HISTORY: Sisters with breast cancer. TECHNIQUE: Digital bilateral breast latisha (3D mammographic acquisition) in the CC and MLO projections. 2-D mediolateral oblique (MLO) and craniocaudad (CC) views of both breasts were obtained. CAD: Full Field Digital Mammography with Computer Added Detection was performed. COMPARISON: Comparison is made with prior study dated February 20, 2023 and December 10, 2021. FINDINGS: Breast Composition: There are scattered areas of fibroglandular density. There are no dominant masses or suspicious calcifications. Stable 6 mm well-defined nodule in the deep upper lateral aspect of the left breast. This is suggestive of a small lymph node. No other significant abnormalities are identified. There has been no significant change since the prior study. BI/SCRN MAMM (CAD)W/LATISHA BILAT IMPRESSION: Stable bilateral screening mammogram. Yearly follow-up mammogram recommended. (A) ASSESSMENT CATEGORY: BIRADS Category 2: Benign. A letter regarding these results will be sent to the patient by the facility within 30 days. Approximately 10% of breast cancers are not detected by mammography. A normal mammogram should not delay biopsy of a clinically suspicious abnormality. [id number] Electronically Signed: Ciro Reece MD at 8:50 EDT , CC: Dr. Agata Maradiaga DO [facility] [employer]/Fireman: Signed Normal [facility] 36on 09-07-2023 36 I spoke with pt. We discussed results of MRI brain. Med list shows she is taking Plavix daily. She states she is also taking ASA She says she feels much better since being off Amitriptyline. Scheduled for follow up in November [facility] 36 Name of caller: Massiel stein Contact phone number: [phone] Relationship to Patient: patient Provider: Dr. May Practice: [facility] Neurology Avelina Chief Complaint/Reason for Call: Pt states that she would like to receive a cb to discuss her MRI results. Please advise. Best time of day caller can be reached:Any Patient advised that office/PCP has 24-48 business hours to return their call: No [facility] 36on 09-01-2023 36 I spoke with pt. We discussed her side effects from Amitriptyline. She had been dosing 2 of the Amitriptyline but last night took only 1. She was instructed to dose 1 Amitriptyline tonight and tomorrow and stop Mri is scheduled for 09/05 I will call her on 09/05 to get an update [facility] 36on 08-31-2023 36 S: Patient spoke wit [facility] nurse regarding medication problem B: Elavil A: Pt was started on Elavil last month. The headaches have improved. Having trouble urinating, tired, weak, shaky, dry mouth, flushing and anxious all the time that has started after starting the elavil. Will feel like has to go but when she sits, trouble getting the urine out unless she sits for a while, runs water and pushes the urine out. She feels like able to empty the bladder. The urine symptoms started the first week. The anxiety, shaky, flushing and weakness got bad after starting 2 pills a day. Reviewed the medication information and states all the symptoms are listed as possible side effects of the elavil. Pt states she would rather deal with the headaches than have all of these side effects. Has MRI for 09-05-23. Pt is under a lot of stress with diagnosed with cancer. Pt wanting to stop the elavil. R: TE sent to the office for review. Please contact pt at [phone] with care plan. Pt instructed to not stop Elavil until hears from the office. Can get side effects if stop abruptly. Patient understands care advice. Instructed to call back with any further questions or concerns. Reason for Disposition Caller has NON-URGENT medicine question about med that PCP or specialist prescribed and triager unable to answer question Protocols used: Medication Question [id number] [facility] 36on 07-31-2023 36 Spoke with patient tr nd let her know there are no openings in September. If something does come up we will call and let her know. [facility] 36on 07-28-2023 36 Name of Caller: Jean Claude Contact Reason for Appointment: r/s 11/17/23 appt to around 09/27/23 as noted in visit notes from 07/28 appt. Office Name: [facility] Neurology Avelina [facility] Absolute lymphocyte countOrd ered By: Flor Randhawa on 07-28-2023 Lymphocytes Auto (Unsp spec) [#/Vol] 3.01 10*3/uL 0.83-4.51 [facility] Basophil percentageOrdered B y: Flor Randhawa on 07-28-2023 Basophils/100 WBC (Bld) 0.9 % 0-1 [facility] Bilirubin [Mass/Vol] 0.20 mg/dL 0.20-1.00 [facility] Comment on above: For patients on eltr ombopag therapy, use of Dimension Lasara TBIL is not recommended. Chloride [Moles/Vol] 109 mmol/L 98-107 [facility] Eosinophils/100 WBC (Bld) 1.6 % 0-5 [facility] Glucose [Mass/Vol] 101 mg/dL 74-106 [facility] Comment on above: Fasting Glucose resu lt from 100 to 125 mg/dL suggests IMPAIRED HOMEOSTASIS per A.D.A. criteria. Neutrophils (Bld) [#/Vol] 5.6 10*3/uL 2.0-7.7 [facility] Neutrophils/100 WBC (Bld) 58.5 % 47-70 [facility] Potassium [Moles/Vol] 4.3 mmol/L 3.5-5.1 [facility] Protein [Mass/Vol] 7.1 g/dL 6.4-8.2 [facility] Sodium [Moles/Vol] 140 mmol/L 136-145 [facility] WBC (Bld) [#/Vol] 9.5 10*3/uL 4.4-11.0 [facility] Blood erythrocytes count (nu mber/volume)Ordered By: Flor Randhawa on 07-28-2023 RBC (Bld) [#/Vol] 3.58 10*6/uL 4.2-5.4 [facility] Blood hemoglobin measurement (mass/volume)Ordered By: Flor Randhawa on 07-28-2023 Hemoglobin (Bld) [Mass/Vol] 11.5 g/dL 12.0-15.0 [facility] Blood lymphocytes/100 leukoc ytesOrdered By: [place] Edis on 07-28-2023 Lymphocytes/100 WBC (Bld) 31.6 % 19-41 [facility] Blood monocytes/100 leukocyt esOrdered By: [place] Edis on 07-28-2023 Monocytes/100 WBC (Bld) 7.1 % 0-10 [facility] Blood platelet mean volumeOr dered By: Florkhoa Randhawa on 07-28-2023 Platelet mean volume (Bld) [Entitic vol] 10.5 fL 6.2-12.0 [facility] Determination of erythrocyte mean corpuscular volume (MCV)Ordered By: [place] Edis on 07-28-2023 MCV (RBC) [Entitic vol] 100.3 fL 81-99 [facility] Hematocrit Auto (Bld) [Volum e fraction]Ordered By: Florkhoa Randhawa on 07-28-2023 Hematocrit (Bld) [Volume fraction] 35.9 % 37-47 [facility] Iron measurement (mass/mass) Ordered By: Flor Randhawa on 07-28-2023 Iron (Unsp spec) [Mass/Mass] 83 ug/dL 50-170 [facility] Laboratory - Chemistry and C hemistry - challengeOrdered By: [place] Edis on 07-28-2023 ALP [Catalytic activity/Vol] 61 U/L 45-117 [facility] ALT [Catalytic activity/Vol] 20 U/L 13-56 [facility] CO2 [Moles/Vol] 25.0 mmol/L 21.0-32.0 [facility] Cobalamin (Vitamin B12) [Mass/Vol] 551 pg/mL 211-911 [facility] Free T4 [Mass/Vol] 1.03 ng/dL 0.76-1.46 [facility] Globulin (S) [Mass/Vol] 3.3 g/dL 2.2-4.2 [facility] Urea nitrogen/Creatinine [Mass ratio] 28.0 mg/mg 10-20 [facility] Laboratory - Hematology and Cell countsOrdered By: Flor Randhawa on 07-28-2023 Erythrocyte distribution width (RBC) [Entitic vol] 50.0 fL 35.1-43.9 [facility] Erythrocyte distribution width (RBC) [Ratio] 13.6 % 11.6-14.6 [facility] Immature granulocytes/100 WBC (Bld) 0.300 % 0.0-0.9 [facility] Comment on above: IG% - Immature Granu locytes (promyelocytes, myelocytes and metamyelocytes) > 1% indicates that a LEFT SHIFT is Present. MCH (RBC) [Entitic mass] 32.1 pg 27.0-32.0 [facility] Nucleated RBC/100 WBC (Bld) [Ratio] 0 % 0-5 [facility] MCHC Auto (RBC) [Mass/Vol]Or dered By: Flor Randhawa on 07-28-2023 MCHC (RBC) [Mass/Vol] 32.0 g/dL 32-36 [facility] No Panel InformationOrdered By: Flor Randhawa on 07-28-2023 Estimated GFR (MDRD) Amer 87 mL/min >60 [facility] Comment on above: GFR Calc Estimated GFR (MDRD) Non-Af Amer 72 mL/min >60 [facility] Comment on above: Non- GFR Calc Thyroid Stimulating Hormone (TSH) 0.46 uIU/mL 0.358-3.74 [facility] Vitamin D 25-Hydroxy 49.4 ng/mL [facility] Comment on above: Vitamin D 25(OH) Sta tus Range Deficiency <20 ng/mL (50nmol/L) Insufficiency 20 - 30 ng/mL (50 - 75 nmol/L) Sufficiency 30 - 100 ng/mL (75 - 250 nmol/L) Toxicity >100 ng/mL (>250 nmol/L) Office Visiton 07-28-2023 Follow-up visit [id number] Emelyn Kramer 1950 F Date Provider Department Center 07/28/2023 [id number] MAY [facility] SB CONTRERAS None Family History Problem Relation Age of Onset Heart disease Mother No Known Problems Father Breast cancer Sister Hypothyroidism Sister Heart attack Sister Hypothyroidism Sister Heart attack Brother Hypothyroidism Brother Hypothyroidism Brother No Known Problems Maternal Grandmother Heart attack Maternal Grandfather No Known Problems Paternal Grandmother No Known Problems Paternal Grandfather No Known Problems Daughter No Known Problems Daughter No Known Problems Son Family Status - Relation Status Age at Mother Father Sister Alive Sister Alive Brother Brother Alive Maternal Grandmother Maternal Grandfather Paternal Grandmother Paternal Grandfather Daughter Alive Daughter Alive Son Alive Level of Service:27525 DE OFFICE/OUTPATIENT NEW LOW MDM 30-44 MINUTES Reason for Visit and Comments: New Patient [542] Headache [52] Normal [facility] Platelets bldOrdered By: Humaira Randhawa on 07-28-2023 Platelets (Bld) [#/Vol] 387 10*3/uL 150-450 [facility] Progress Noteon 07-28-2023 Progress Note [facility] [address] [facility] [address] Dept: [phone] Dept Loc: [phone] Devan May MD Thank you for your kind request for a neurological consultation on this patient. CHIEF COMPLAINT: Chief Complaint Patient presents with New Patient Headache HISTORY OF PRESENT ILLNESS: The patient is a 72 y.o. person who presents with headaches and history of polymyalgia rheumatica. She reports that she got Reclast in December and immediately got right temporal area. She reports that she has had a workup in the [facility]. Unfortunately, I do not have the records for that nor do I have aaccess to those records. She reports that because of her prior history of PMR that she had a temporal artery biopsy that was negative. She reports that prior to the temporal artery biopsy, she did have labs that she was told were c/w temporal arteritis. I do not have access to those results. She reports that she was having the headaches every AM. She reoprts that they are now 16-20 days per month. Right orbit, right temporal and righe occipital. Aching. Is the FRANCO longer than four hours? No (Migraine) Photophobia? Yes screens. (Migraine) Phonophobia? Yes (Migraine) Nausea/Vomiting? No (Migraine) Exacerbated by Movement? No She was getting diplopia initially but that stopped in February (2 months of it) Off balance. (Hemicrania Continua) Autonomic Features (at least 1 of below)? (1) conjunctival injection? No (2) lacrimation? No (3) nasal congestion? No (4) rhinorrhea? No (5) ptosis? No (6) eyelid edema? No (New Daily Persistent FRANCO) Clear Onset of FRANCO Syndrome? No Persistent for >3 months? No Distinct starting point? No No prior FRANCO history? Yes (Tension-Type FRANCO) Mild-Moderate, Featureless? No >10 attacks per month? 30 min-7days? Bilateral? Pressing/tightening? Is the FRANCO less than four hours? Yes, but takes tramadol. Autonomic Features? No Cluster Headache (1 or more)? No 15 min to 180 min? No Ipsilateral conjunctival injection? No Ipsilateral Lacrimation? No Ipsilateral nasal congestion? No Ipsilateral Rhinorrhea? No Ipsilateral forehead and facial sweating? No Ipsilateral Miosis? No Ipsilateral Ptosis? No eyelid edema? No Paroxysmal Hemicrania (1 or more ipsilateral)? No (1) 2 min-30 min? No (2) conjunctival injection? No (3) lacrimation? No (4) nasal congestion? No (5) rhinorrhea? No (6) eyelid edema? No Short-lasting Unilateral Neuralgiform FRANCO with Conjunctival Injection and Tearing? (1) 1 sec-600 s? No (2) conjunctival injection? No (3) lacrimation? No (4) nasal congestion? No (5) rhinorrhea? No (6) eyelid edema? No Hypnic FRANCO? Only during sleep and causing awakening? No > 10 days per month? No > 3 months? No Age over 50? No Primary Cough FRANCO? > 2 attacks? No Precipitated by coughing or other Valsalva maneuver? No 1 sec-2 hours? No Secondary cause ruled out? No Primary Exercise FRANCO? > 2 attacks? No Precipitated by strenuous exercise? No Secondary cause ruled out? No Secondary causes of FRANCO? Systemic Symptoms (mets, GCA, infection)? Fever? Sweats/Chills? Weight Loss? Secondary Diseases? HIV? Cancer? Chronic Infection? Chronic Immunosuppression? Neurological Symtoms and Signs (mass/structural lesion, stroke, hydrocephalus) Confusion? Focal neurological signs/symptoms? Diplopia? Transient visual obscurations? Pulsatile tinnitus? Onset: (RCVS, stroke, SAH, CVST, dissection, pituitary apoplexy, intracranial hypertension) Thunderclap? Older Age (mass, GCA) New onset after age 50? Progressive after age 50? Positional (CSF leak, mass, CVST, Sinusitis) Orthostatic? Recumbent? Worsens with change in position? Prior history (mass, infection)? / (CVST, eclampsia, RCVS, pituitary lesion, stroke)? Precipitated by valsalva (mass, Chiari)?No Cough? Sneeze? Bending? Straining? She has pain in her upper neck. Stays in that area. Turning her head to the right makes it worse. Heat/ice helps. She has not had x-rays. She is having frequent migraines despite gabapentin, occipital nerve blocks, and venlafaxine. She reports that she had migraines when she was young. She has history of clenching/grinding and had to have a bite guard. Past Medical History: has a past medical history of Hypothyroid, Sleep apnea, and Sudden adrenal gland insufficiency (HCC). Past Surgical History: has a past surgical history that includes Cardiac surgery; Knee surgery (Bilateral); Hip surgery (Bilateral); Hand surgery (Bilateral); Hernia repair; and Neck surgery. Medications: Current Outpatient Medications: Ascorbic Acid (VITAMIN C ER PO), Take by mouth., Disp: , Rfl: Calcium Carbonate-Vitamin D (CALCIUM 600+D PO), Take by mouth., Disp: , Rfl: Cetirizine HCl (ZYRTEC ALLERGY PO), Take by mouth., (more content not included)... Normal [facility] Serum or plasma albumin raffaele urement (mass/volume)Ordered By: Flor Randhawa on 07-28-2023 Albumin [Mass/Vol] 3.8 g/dL 3.2-5.0 [facility] Serum or plasma albumin/glob ulin mass ratioOrdered By: Flor Randhawa on 07-28-2023 Albumin/Globulin [Mass ratio] 1.2 {ratio} 0.9-2.4 [facility] Serum or plasma calcium raffaele urement (mass/volume)Ordered By: Flor Edis on 07-28-2023 Calcium [Mass/Vol] 8.6 mg/dL 8.5-10.1 [facility] Serum or plasma creatinine m easurement (mass/volume)Ordered By: Florkhoa Randhawa on 07-28-2023 Creatinine [Mass/Vol] 0.82 mg/dL 0.55-1.02 [facility] Comment on above: The validity of the calculated GFR & GFRAA in patients over 70 years has not been determined. Clinical correlation is essential. Serum or plasma ferritin aaliyah surement (mass/volume)Ordered By: [facility] on 07-28-2023 Ferritin [Mass/Vol] 49 ng/mL 8-252 [facility] Serum or plasma urea nitroge n measurement (mass/volume)Ordered By: [place] Edis on 07-28-2023 Urea nitrogen [Mass/Vol] 23 mg/dL 7-18 [facility] Thin prep Papanicolaou smear with manual screeningOrdered By: [facility] on 07-28-2023 Thin prep Papanicolaou smear with manual screening 13 U/L 15-37 [facility] Thin prep Papanicolaou smear with manual screening 6 5-15 [facility] 36on 07-27-2023 36 Name of caller: Massiel stein / Ofelia Contact phone number: [phone] Relationship to Patient: Patient and Daughter Provider: Dr. May Practice: Neurology Chief Complaint/Reason for Call: Ofelia is requesting a call back to confirm receipt of a referral that was faxed over on 07/26/23. Please call Ofelia and confirm whether or not the referral was received. Best time of day caller can be reached: Any Patient advised that office/PCP has 24-48 business hours to return their call: No Normal [facility] CNOVon 03-06-2023 CNOV Office Visit (OBGYWM ) YOUNG,EMELYN J ([id number]) 1950 F Date Time Provider Department 03/06/23 8:40 AM ALEX BACK OBNAYELI During your visit today, we recorded the following information about you: Blood pressure Weight Height 122/76 81.2 kg 1.6 m Alex Back MD 03/06/2023 12:31 PM Signed Emelyn is a 72 year old who presents for an annual gynecologic exam without complaints. denies vaginal bleeding. no new concerns. H/o abnormal paps. Last pap normal. All HGPV for last 17 years neg. Postmenopausal: yes HRT use: No. 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 History Comments: Sexual Activity: Yes; Male Contraception: No contraception data on record PAST MEDICAL HISTORY Diagnosis Date Adrenal insufficiency (HCC) Arthritis, multiple joint involvement ATROPHIC VAGINITIS Coronary atherosclerosis of unspecified type of vessel, [place] or graft 2007 Dr Gonzalez, s/p- stent Degenerative disc disease, cervical Diffuse cystic mastopathy Fibrocystic breast disease Hematuria 2010 benign after evaluation Hyperlipidemia Hypothyroidism Mild dysplasia of cervix 1998 Mitral valve prolapse OSTEOPENIA Other malaise and fatigue PAC (premature atrial contraction) Noted history of PACs Polymyalgia rheumatica (HCC) 1998 atypical, Dr Zuluaga Pure hypercholesterolemia SVT (supraventricular tachycardia) ([facility]) 2005 rarely now since had ablations done (not completely resolved but resolves on own now) Thoracic spondylosis Unspecified sleep apnea cpap Upper GI bleed 2009, 2010 pre-pyloric antrum, mobic discontinued VITAMIN D DEFICIENCY NOS PAST SURGICAL HISTORY Procedure Laterality Date ARTHROSCOPY KNEE DIAGNOSTIC W/WO SYNOVIAL BX SPX 01/2004 Arthroscopy, knee left ARTHRP ACETBLR/PROX FEM PROSTC AGRFT/ALGRFT Right 02/09/2015 Hip replacement, total ARTHRP ACETBLR/PROX FEM PROSTC AGRFT/ALGRFT Left 05/13/2015 Hip replacement, total ARTHRP KNE CONDYLEANDPLATU MEDIALANDLAT COMPARTMENTS 06/2005 Knee replacement, total left ARTHRP KNE CONDYLEANDPLATU MEDIALANDLAT COMPARTMENTS 01/07/2013 Right CARDIAC CATH 09/2009 left CARPAL TUNNEL 2009 right wrist- x2 2020 COLONOSCOP W/ OR W/O BRSH SPEC 02/28/2011 COLONOSCOPY FLX DX W/COLLJ SPEC WHEN PFRMD 10/16/2002 Colonoscopy COLPOSCOPY CERVIX UPPER/ADJACENT VAGINA 02/15/1999 Colposcopy w/ bx EGD TRANSORAL BIOPSY SINGLE/MULTIPLE 11/28/2011 EGD WITH CONTROL OF BLEED, 07/26/2011 EGD WITH CONTROL OF BLEED, 07/26/2011 EP study W/ 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 EP study W/ re-ablation of recuurent SVT 09/2001 ESOPHAGOGASTRODUODENOS COPY TRANSORAL DIAGNOSTIC 10/20/2009 EGD H-pylori is negative LAPAROSCOPY, SURG REPAIR - HERNIA 11/2022 LIGATION OR BIOPSY, TEMP ARTERY 01/2023 OFFICE LEEP before 2002 PAST SURGICAL HISTORY OF Left 05/2016 wound surgery PTCA/Stent (OMAR) to LAD 12/14/2007 RPR 1ST INGUN HRNA AGE 5 YRS/> REDUCIBLE 03/02/2011 SHOULDER SURGERY HX Right 08/2018 scope FAMILY HISTORY Problem Relation Age of Onset other (Other) Mother MVA AGE 30+ other (Other) Father MVA AGE 30 + Thyroid Sister Ischemic Heart Disease Sister 62 Thyroid Sister Ischemic Heart Disease Brother 50 Thyroid Brother Heart Maternal Grandfather Heart Paternal Grandmother Arthritis Daughter psoriatic arthritis Alzheimer's Disease Maternal Aunt Cancer Maternal Aunt liposarcoma SOCIAL HISTORY Social History Tobacco Use Smoking status: Never Smokeless tobacco: Never Vaping Use Vaping Use: Never used Substance Use Topics Alcohol use: No Drug use: No EXAM: BP 122/76 Ht 5' 3 (1.60m) Wt 179 lb (81.2kg) LMP 09/11/2003 BMI 31.72 kg/(m2). GENERAL: pleasant, female in no apparent distress HEENT: Normocephalic, atraumatic, mucus membranes moist, and no lesions NECK: Supple, full range of motion, no adenopathy, and thyroid normal DERMATOLOGY: Normal, without lesions, non-icteric, and non-hirsute BREAST: soft, non-tender, symmetric, no dominant mass, normal nipple-areolar complex, no lymphadenopathy, and no nipple discharge CHEST: Normal inspiratory effort ABDOMEN: soft, non-tender, and no masses PELVIC: external genitalia normal, normal Bartholin's glands, urethra, Elephant Head's glands, no vulvar lesions, no cervical lesions, physiologic discharge present, normal appearing perineal body and perianal region, cystocele 1st degree, rectocele 1st degree, cervical prolapse 1st degree BIMANUAL: uterus normal size, shape and consistency, no adnexal m (more content not included)... Normal [facility] Absolute lymphocyte countOrd ered By: Dr. Moser on 01-11-2023 Lymphocytes Auto (Unsp spec) [#/Vol] 2.94 10*3/uL 0.83-4.51 [facility] Basophil percentageOrdered B y: Dr. Moser on 01-11-2023 Basophils/100 WBC (Bld) 0.9 % 0-1 [facility] Eosinophils/100 WBC (Bld) 2.5 % 0-5 [facility] Neutrophils (Bld) [#/Vol] 5.8 10*3/uL 2.0-7.7 [facility] Neutrophils/100 WBC (Bld) 58.1 % 47-70 [facility] WBC (Bld) [#/Vol] 10.0 10*3/uL 4.4-11.0 [facility] Blood erythrocytes count (nu mber/volume)Ordered By: Dr. Moser on 01-11-2023 RBC (Bld) [#/Vol] 3.61 10*6/uL 4.2-5.4 [facility] Blood hemoglobin measurement (mass/volume)Ordered By: Dr. Moser on 01-11-2023 Hemoglobin (Bld) [Mass/Vol] 11.8 g/dL 12.0-15.0 [facility] Blood lymphocytes/100 leukoc ytesOrdered By: Dr. Moser on 01-11-2023 Lymphocytes/100 WBC (Bld) 29.3 % 19-41 [facility] Blood monocytes/100 leukocyt esOrdered By: Dr. Moser on 01-11-2023 Monocytes/100 WBC (Bld) 8.7 % 0-10 [facility] Blood platelet mean volumeOr dered By: Dr. Moser on 01-11-2023 Platelet mean volume (Bld) [Entitic vol] 10.0 fL 6.2-12.0 [facility] Determination of erythrocyte mean corpuscular volume (MCV)Ordered By: Dr. Moser on 01-11-2023 MCV (RBC) [Entitic vol] 111.1 fL 81-99 [facility] Erythrocyte sedimentation ra teOrdered By: Dr. Moser on 01-11-2023 ESR (Bld) [Velocity] 10 mm/h 0-30 [facility] Hematocrit Auto (Bld) [Volum e fraction]Ordered By: Dr. Moser on 01-11-2023 Hematocrit (Bld) [Volume fraction] 40.1 % 37-47 [facility] Laboratory - Hematology and Cell countsOrdered By: Dr. Moser on 01-11-2023 Erythrocyte distribution width (RBC) [Entitic vol] 57.8 fL 35.1-43.9 [facility] Erythrocyte distribution width (RBC) [Ratio] 14.2 % 11.6-14.6 [facility] Immature granulocytes/100 WBC (Bld) 0.500 % 0.0-0.9 [facility] Comment on above: IG% - Immature Granu locytes (promyelocytes, myelocytes and metamyelocytes) > 1% indicates that a LEFT SHIFT is Present. MCH (RBC) [Entitic mass] 32.7 pg 27.0-32.0 [facility] Nucleated RBC/100 WBC (Bld) [Ratio] 0.2 % 0-5 [facility] MCHC Auto (RBC) [Mass/Vol]Or dered By: Dr. Moser on 01-11-2023 MCHC (RBC) [Mass/Vol] 29.4 g/dL 32-36 [facility] Platelets bldOrdered By: Dr. Moser on 01-11-2023 Platelets (Bld) [#/Vol] 323 10*3/uL 150-450 [facility] Serum or plasma C reactive p rotein measurement (mass/volume)Ordered By: Dr. Moser on 01-11-2023 CRP [Mass/Vol] 5.82 mg/L 0.0-3.0 [facility] Comment on above: C-Reactive Protein ( CRP) provides useful information for thediagnosis, therapy and monitoring of inflammatory processesand associated diseases. For the evaluation of Relative Riskfor Cardiovascular Disease, a High Sensitivity CRP (HSCRP)should be ordered. Erythrocyte sedimentation ra teOrdered By: Dr. Maradiaga on 01-05-2023 ESR (Bld) [Velocity] 35 mm/h 0-30 [facility] Serum or plasma cortisol aaliyah surement (mass/volume)Ordered By: Dr. Maradiaga on 01-05-2023 Cortisol [Mass/Vol] 10.40 ug/dL 3.44-22.45 [facility] Comment on above: Adult (AM) 5.27 - 22 .45 ug/dL Adult (PM) 3.44 - 16.76 ug/dLPlease note revised CORTISOL reference range effective 2019. Basophil percentageOrdered B y: Dr. Ochoa on 11-29-2022 Chloride [Moles/Vol] 108 mmol/L 98-107 [facility] Glucose [Mass/Vol] 94 mg/dL 74-106 [facility] Potassium [Moles/Vol] 4.2 mmol/L 3.5-5.1 [facility] Sodium [Moles/Vol] 143 mmol/L 136-145 [facility] WBC (Bld) [#/Vol] 9.4 10*3/uL 4.4-11.0 [facility] Blood erythrocytes count (nu mber/volume)Ordered By: Dr. Ochoa on 11-29-2022 RBC (Bld) [#/Vol] 3.64 10*6/uL 4.2-5.4 [facility] Blood hemoglobin measurement (mass/volume)Ordered By: Dr. Ochoa on 11-29-2022 Hemoglobin (Bld) [Mass/Vol] 11.4 g/dL 12.0-15.0 [facility] Blood platelet mean volumeOr dered By: Dr. Ochoa on 11-29-2022 Platelet mean volume (Bld) [Entitic vol] 10.2 fL 6.2-12.0 [facility] Determination of erythrocyte mean corpuscular volume (MCV)Ordered By: Dr. Ochoa on 11-29-2022 MCV (RBC) [Entitic vol] 100.8 fL 81-99 [facility] Hematocrit Auto (Bld) [Volum e fraction]Ordered By: Dr. Ochoa on 11-29-2022 Hematocrit (Bld) [Volume fraction] 36.7 % 37-47 [facility] Laboratory - Chemistry and C hemistry - challengeOrdered By: Dr. Ochoa on 11-29-2022 CO2 [Moles/Vol] 30.0 mmol/L 21.0-32.0 [facility] Urea nitrogen/Creatinine [Mass ratio] 25.6 mg/mg 10-20 [facility] Laboratory - Hematology and Cell countsOrdered By: Dr. Ochoa on 11-29-2022 Erythrocyte distribution width (RBC) [Entitic vol] 50.1 fL 35.1-43.9 [facility] Erythrocyte distribution width (RBC) [Ratio] 13.5 % 11.6-14.6 [facility] MCH (RBC) [Entitic mass] 31.3 pg 27.0-32.0 [facility] MCHC Auto (RBC) [Mass/Vol]Or dered By: Dr. Ochoa on 11-29-2022 MCHC (RBC) [Mass/Vol] 31.1 g/dL 32-36 [facility] No Panel InformationOrdered By: Dr. Ochoa on 11-29-2022 Estimated GFR (MDRD) Amer 93 mL/min >60 [facility] Comment on above: GFR Calc Estimated GFR (MDRD) Non-Af Amer 77 mL/min >60 [facility] Comment on above: Non- GFR Calc No Panel InformationOrdered By: Dr. Hidalgo on 11-29-2022 Thyroid Stimulating Hormone (TSH) 0.66 uIU/mL 0.358-3.74 [facility] Platelets bldOrdered By: Dr. Ochoa on 11-29-2022 Platelets (Bld) [#/Vol] 367 10*3/uL 150-450 [facility] Serum or plasma calcium raffaele urement (mass/volume)Ordered By: Dr. Ochoa on 11-29-2022 Calcium [Mass/Vol] 9.0 mg/dL 8.5-10.1 [facility] Serum or plasma creatinine m easurement (mass/volume)Ordered By: Dr. Ochoa on 11-29-2022 Creatinine [Mass/Vol] 0.78 mg/dL 0.55-1.02 [facility] Comment on above: The validity of the calculated GFR & GFRAA in patients over 70 years has not been determined. Clinical correlation is essential. Serum or plasma urea nitroge n measurement (mass/volume)Ordered By: Dr. Ocoha on 11-29-2022 Urea nitrogen [Mass/Vol] 20 mg/dL 7-18 [facility] Thin prep Papanicolaou smear with manual screeningOrdered By: Dr. Ochoa on 11-29-2022 Thin prep Papanicolaou smear with manual screening 5 5-15 [facility] CNOVon 05-04-2022 CNOV Office Visit (FRWS ) EMELYN KRAMER ([id number]) 1950 F Date Time Provider Department 05/04/22 2:30 PM [facility] During your visit today, we recorded the following information about you: Ofelia Melissa Ma 05/04/2022 3:34 PM Signed AMB ROOMING INTAKE FLOWSHEET DATA Risk Screening Do you have concerns about personal safety or safety in the home?: No Pain Pain Level: 2 Pain Location: Knee-Left Description: Aching, Dull Duration Amount of Time: 3 Duration Units: Weeks Frequency: Continuous Intervention/Comfort measure: Other: See comment (none) Wilmer Juarez DO 05/04/2022 3:34 PM Signed SELF Ms. Kramer is a 71 year old female that presents today complaining of knee problems on the left side for the last 3 weeks. She claims that this pain is directly due to falling. The pain is described as improving located along the inside aspect of the knee. She had a left total knee replacement in 2005 and has done fine since that time overall. She states that since her fall on 04/13/2022, she has noticed progressive improvement in symptoms. She was seen in the urgent care 2 days after the fall and was told to follow-up to make sure that everything was fine, since she has a prosthetic knee. ALLERGIES: Adhesive Tape (Rosins), Flexeril [Cyclobenzaprine Hcl], and Pravachol [Pravastatin Sodium] MEDICATIONS: Current Outpatient Medications Medication Sig SYNTHROID 137 mcg tablet metoprolol succinate ER (TOPROL XL) 25 mg 24 hr tablet predniSONE (DELTASONE) 1 mg tablet take 2 tablets by mouth once daily lisinopril (ZESTRIL, PRINIVIL) 5 mg tablet CALCIUM CARBONATE-VITAMIN D2 ORAL calcium carbonate / vitamin D CALCIUM CARBONATE-VITAMIN D 600-125 MG-UNIT TABS One tablet by mouth twice daily CALCIUM CARBONATE-VITAMIN D [id number] Laila Hernandez 01-28-2011 [facility] ([id number]) gabapentin (NEURONTIN) 100 mg capsule 700 mg. venlafaxine ER (EFFEXOR XR) 37.5 mg 24 hr capsule Take 1 capsule by mouth once daily. Omeprazole (PRILOSEC) 40 mg capsule Take 1 capsule by mouth once daily. traMADol (ULTRAM) 50 mg tablet Take one to two tablets every eight (8) hours as needed for pain. aspirin 81 mg chewable tablet Take 1 tablet by mouth daily at bedtime. fluticasone (FLONASE) 50 mcg/actuation nasal spray Use 1 [place] in each nostril daily at bedtime. clopidogrel (PLAVIX) 75 mg tablet Take 1 tablet by mouth once daily. nitroglycerin sublingual (NITROQUICK) 0.4 mg SL tablet nitroglycerin Nitroglycerin [Nitrostat] 0.4 MG SL NEEDED PRN For CHEST PAIN July 24, 2018 Active 07-24-2018 [facility] ([id number]) calcium carbonate (CALTRATE 600) 600 mg (1,500 mg) Tab Take 1 tablet by mouth twice daily. CPAP nightly No current facility-administered medications for this visit. MEDICAL HISTORY: PAST MEDICAL HISTORY Diagnosis Date Adrenal insufficiency (HCC) Arthritis, multiple joint involvement ATROPHIC VAGINITIS Coronary atherosclerosis of unspecified type of vessel, [place] or graft 2007 Dr Gonzalez, s/p- stent Degenerative disc disease, cervical Diffuse cystic mastopathy Fibrocystic breast disease Hematuria 2010 benign after evaluation Hyperlipidemia Hypothyroidism Mild dysplasia of cervix 1998 Mitral valve prolapse OSTEOPENIA Other malaise and fatigue PAC (premature atrial contraction) Noted history of PACs Polymyalgia rheumatica (HCC) 1998 atypical, Dr Zuluaga Pure hypercholesterolemia SVT (supraventricular tachycardia) ([facility]) 2005 rarely now since had ablations done (not completely resolved but resolves on own now) Thoracic spondylosis Unspecified sleep apnea cpap Upper GI bleed 2010 pre-pyloric antrum, mobic discontinued VITAMIN D DEFICIENCY NOS SURGICAL HISTORY: PAST SURGICAL HISTORY Procedure Laterality Date ARTHROSCOPY KNEE DIAGNOSTIC W/WO SYNOVIAL BX SPX 01/2004 Arthroscopy, knee left ARTHRP ACETBLR/PROX FEM PROSTC AGRFT/ALGRFT Right 02/09/2015 Hip replacement, total ARTHRP ACETBLR/PROX FEM PROSTC AGRFT/ALGRFT Left 05/13/2015 Hip replacement, total ARTHRP KNE CONDYLEANDPLATU MEDIALANDLAT COMPARTMENTS 06/2005 Knee replacement, total left ARTHRP KNE CONDYLEANDPLATU MEDIALANDLAT COMPARTMENTS 01/07/2013 Right CARDIAC CATH 09/2009 left CARPAL TUNNEL 2009 right wrist- x2 2020 COLONOSCOP W/ OR W/O BRSH SPEC 02/28/2011 COLONOSCOPY FLX DX W/COLLJ SPEC WHEN PFRMD 10/16/2002 Colonoscopy COLPOSCOPY CERVIX UPPER/ADJACENT VAGINA 02/15/1999 Colposcopy w/ bx EGD TRANSORAL BIOPSY SINGLE/MULTIPLE 11/28/2011 EGD WITH CONTROL OF BLEED, 07/26/2011 EGD WITH CONTROL OF BLEED, 07/26/2011 EP study W/ 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 Normal [facility] [place] XR KNEE 4V AP/PA BOTH+LAT/ME R LTon 05-04-2022 XR KNEE 4V AP/PA BOTH+LAT/ARNOLD LT * * *Final Report* * * DATE OF EXAM: May 04 2022 2:17PM [id number] [id number] - XR KNEE 4V AP/PA BOTH+LAT/ARNOLD LT / PROCEDURE REASON: Left knee pain, unspecified chronicity * * * * Physician Interpretation * * * * PROCEDURE: Left knee INDICATION: Left knee pain, unspecified chronicity .left anterior knee pain and swelling after falling 2.5-3weeks ago TECHNIQUE: XR KNEE 4V AP/PA BOTH+LAT/ARNOLD LT COMPARISON: 12/14/2017 FINDINGS: The total knee arthroplasty remains in satisfactory position without evidence for loosening. No fracture. Moderate joint effusion. Right TKA is noted. IMPRESSION: Stable TKA. Joint effusion [place] Firer/Fireman: PSCRosey Transcribe Date/Time: May 04 2022 2:55P Dictated by : DEVAN HANKINS MD This examination was interpreted and the report reviewed and electronically signed by: DEVAN HANKINS MD on May 04 2022 2:56PM EST [id number] Normal [facility] [place] XR KNEE GENERAL 4V AP BOTH/P A BOTH/LAT/MERC LEFTon 05-04-2022 [facility] Basophil percentageon 2021 Bilirubin [Mass/Vol] 0.40 mg/dL 0.20-1.00 [facility] Work Phone: Comment on above: For patients on eltr ombopag therapy, use of Dimension Lasara TBIL is not recommended. Cholesterol [Mass/Vol] 246 mg/dL <200 [facility] Work Phone: Comment on above: <200 mg/dL Desirable 200-240 mg/dL Borderline >240 mg/dL High Risk Protein [Mass/Vol] 6.8 g/dL 6.4-8.2 [facility] Work Phone: Triglyceride [Mass/Vol] 65 mg/dL <199 [facility] Work Phone: Comment on above: The drugs N-Acetylcy steine and Metamizole may falsely depress this assay.Serum Triglycerides Reference Interval Normal <150 mg/dL Borderline high 150 - 199 mg/dL High 200 - 499 mg/dL Very High > or = 500 mg/dL Direct bilirubinon 2 Bilirubin.direct [Mass/Vol] 0.09 mg/dL 0.00-0.30 [facility] Work Phone: Laboratory - Chemistry and C hemistry - challengeon 04-30-2022 ALP [Catalytic activity/Vol] 85 U/L 45-117 [facility] Work Phone: ALT [Catalytic activity/Vol] 21 U/L 13-56 [facility] Work Phone: Globulin (S) [Mass/Vol] 3.4 g/dL 2.2-4.2 [facility] Work Phone: Serum or plasma albumin raffaele urement (mass/volume)on 04-30-2022 Albumin [Mass/Vol] 3.4 g/dL 3.2-5.0 [facility] Work Phone: Serum or plasma cholesterol in HDL measurement (mass/volume)on 04-30-2022 Cholesterol in HDL [Mass/Vol] 67 mg/dL >40 [facility] Work Phone: Comment on above: The drugs N-Acetylcy steine and Metamizole may falsely depress this assay. Reference Range HDL <40 mg/dL Low HDL Cholesterol HDL >or= 60 mg/dL High HDL Cholesterol Serum or plasma cholesterol in VLDL measurement (mass/volume)on 04-30-2022 Cholesterol in VLDL [Mass/Vol] 13 mg/dL 5-40 [facility] Work Phone: Serum or plasma low density lipoprotein (LDL) cholesterol measurement (mass/volume)on 04-30-2022 Cholesterol in LDL [Mass/Vol] 166 mg/dL 0-130 [facility] Work Phone: Thin prep Papanicolaou smear with manual screeningon 04-30-2022 Thin prep Papanicolaou smear with manual screening 20 U/L 15-37 [facility] Work Phone: Laboratory - Microbiology an d Antimicrobial susceptibilityon 03-25-2022 SARS-CoV-2 (COVID-19) RNA DILLON+probe Ql (Unsp spec) Not detected [facility] Work Phone: No Panel Informationon 03-25 Influenza Types A,B Rapid (Clinic) Not detected [facility] Work Phone: US EXTREMITY NON-VASCULAR [facility] 02-17-2022 US EXTREMITY NON-VASCULAR RIGHT ORIGINAL EXAMINATION: NONVASCULAR ULTRASOUND OF THE RIGHT EXTREMITY02/16/2022 11:40 am COMPARISON: None HISTORY: ORDERING SYSTEM PROVIDED HISTORY: Reason for Exam: tendonitis rt hip, hip replacement previously, history of fall, right hip pain, rule out iliopsoas tendinitis FINDINGS: Scanning of the right iliopsoas tendon at the hip level shows no tendinopathy, tear or surrounding fluid collection/bursitis. IMPRESSION: Negative study. No evidence of iliopsoas tendinitis. Interpreted by: Salvatore Augustin MD Preliminary Report By: Salvatore Augustin MD Electronically signed By Salvatore Augustin MD Dictated Date: 02/17/2022 12:44:12 AM Prelim Date: 02/17/2022 12:45:28 AM Sign Date: 02/17/2022 12:45:28 AM Ordering Provider: JASKARAN SYLVESTER [facility] ([place]) Basophil percentageon 2021 Basophil percentage < 0.9 mg/dL 0.55-1.02 [facility] Work Phone: No Panel Informationon 01-25 Bedside Estimated GFR (eGFR) > 60.0000 mL/min >60 [facility] Work Phone: Basophil percentageon 2021 Bilirubin [Mass/Vol] 0.30 mg/dL 0.20-1.00 [facility] Work Phone: Comment on above: For patients on eltr ombopag therapy, use of Dimension [place]ara TBIL is not recommended. Chloride [Moles/Vol] 107 mmol/L 98-107 [facility] Work Phone: Glucose [Mass/Vol] 88 mg/dL 74-106 [facility] Work Phone: Potassium [Moles/Vol] 3.9 mmol/L 3.5-5.1 [facility] Work Phone: Protein [Mass/Vol] 7.0 g/dL 6.4-8.2 [facility] Work Phone: Sodium [Moles/Vol] 141 mmol/L 136-145 [facility] Work Phone: Erythrocyte sedimentation ra violet 12-16-2021 ESR (Bld) [Velocity] 20 mm/h 0-30 [facility] Work Phone: Laboratory - Chemistry and C hemistry - challengeon 12-16-2021 ALP [Catalytic activity/Vol] 77 U/L 45-117 [facility] Work Phone: ALT [Catalytic activity/Vol] 19 U/L 13-56 [facility] Work Phone: CK [Catalytic activity/Vol] 79 U/L 26-192 [facility] Work Phone: CO2 [Moles/Vol] 29.0 mmol/L 21.0-32.0 [facility] Work Phone: Free T4 [Mass/Vol] 1.15 ng/dL 0.76-1.46 [facility] Work Phone: Globulin (S) [Mass/Vol] 3.5 g/dL 2.2-4.2 [facility] Work Phone: Urea nitrogen/Creatinine [Mass ratio] 20.9 mg/mg 10-20 [facility] Work Phone: No Panel Informationon 12-16 Adrenocorticotropic Hormone 11.1 pg/mL 7.2-63.3 [facility] Work Phone: Comment on above: ACTH reference inter fran for samples collected between 7 and10 AM.Performed at: [address] [id number] Director: Angel Herrera PhD, Phone: [phone] Estimated GFR (MDRD) Amer 83 mL/min >60 [facility] Work Phone: Comment on above: GFR Calc Estimated GFR (MDRD) Non-Af Amer 69 mL/min >60 [facility] Work Phone: Comment on above: Non- GFR Calc Thyroid Stimulating Hormone (TSH) 1.45 uIU/mL 0.358-3.74 [facility] Work Phone: Vitamin D 25-Hydroxy 60.5 ng/mL [facility] Work Phone: Comment on above: Vitamin D 25(OH) Sta tus Range Deficiency <20 ng/mL (50nmol/L) Insufficiency 20 - 30 ng/mL (50 - 75 nmol/L) Sufficiency 30 - 100 ng/mL (75 - 250 nmol/L) Toxicity >100 ng/mL (>250 nmol/L) Serum or plasma albumin raffaele urement (mass/volume)on 12-16-2021 Albumin [Mass/Vol] 3.5 g/dL 3.2-5.0 [facility] Work Phone: Serum or plasma albumin/glob ulin mass ratioon 12-16-2021 Albumin/Globulin [Mass ratio] 1.0 {ratio} 0.9-2.4 [facility] Work Phone: Serum or plasma calcium raffaele urement (mass/volume)on 12-16-2021 Calcium [Mass/Vol] 8.7 mg/dL 8.5-10.1 [facility] Work Phone: Serum or plasma creatinine m easurement (mass/volume)on 12-16-2021 Creatinine [Mass/Vol] 0.86 mg/dL 0.55-1.02 [facility] Work Phone: Comment on above: The validity of the calculated GFR & GFRAA in patients over 70 years has not been determined. Clinical correlation is essential. Serum or plasma urea nitroge n measurement (mass/volume)on 12-16-2021 Urea nitrogen [Mass/Vol] 18 mg/dL 7-18 [facility] Work Phone: Thin prep Papanicolaou smear with manual screeningon 12-16-2021 Thin prep Papanicolaou smear with manual screening 11 U/L 15-37 [facility] Work Phone: Thin prep Papanicolaou smear with manual screening 5 5-15 [facility] Work Phone: Absolute lymphocyte counton 10-12-2021 Lymphocytes Auto (Unsp spec) [#/Vol] 3.78 10*3/uL 0.83-4.51 [facility] Work Phone: Basophil percentageon 2021 Basophils/100 WBC (Bld) 0.8 % 0-1 [facility] Work Phone: Eosinophils/100 WBC (Bld) 2.1 % 0-5 [facility] Work Phone: Neutrophils (Bld) [#/Vol] 6.8 10*3/uL 2.0-7.7 [facility] Work Phone: Neutrophils/100 WBC (Bld) 57.5 % 47-70 [facility] Work Phone: WBC (Bld) [#/Vol] 11.8 10*3/uL 4.4-11.0 [facility] Work Phone: Blood erythrocytes count (nu mber/volume)on 10-12-2021 RBC (Bld) [#/Vol] 3.99 10*6/uL 4.2-5.4 [facility] Work Phone: Blood hemoglobin measurement (mass/volume)on 10-12-2021 Hemoglobin (Bld) [Mass/Vol] 12.3 g/dL 12.0-15.0 [facility] Work Phone: Blood lymphocytes/100 leukoc yteson 10-12-2021 Lymphocytes/100 WBC (Bld) 32.1 % 19-41 [facility] Work Phone: Blood monocytes/100 leukocyt eson 10-12-2021 Monocytes/100 WBC (Bld) 7.0 % 0-10 [facility] Work Phone: Blood platelet mean volumeon 10-12-2021 Platelet mean volume (Bld) [Entitic vol] 10.2 fL 6.2-12.0 [facility] Work Phone: Determination of erythrocyte mean corpuscular volume (MCV)on 10-12-2021 MCV (RBC) [Entitic vol] 95.7 fL 81-99 [facility] Work Phone: Hematocrit Auto (Bld) [Volum e fraction]on 10-12-2021 Hematocrit (Bld) [Volume fraction] 38.2 % 37-47 [facility] Work Phone: Iron measurement (mass/mass) on 10-12-2021 Iron (Unsp spec) [Mass/Mass] 83 ug/dL 50-170 [facility] Work Phone: Laboratory - Hematology and Cell countson 10-12-2021 Erythrocyte distribution width (RBC) [Entitic vol] 49.8 fL 35.1-43.9 [facility] Work Phone: Erythrocyte distribution width (RBC) [Ratio] 14.3 % 11.6-14.6 [facility] Work Phone: Immature granulocytes/100 WBC (Bld) 0.500 % 0.0-0.9 [facility] Work Phone: Comment on above: IG% - Immature Granu locytes (promyelocytes, myelocytes and metamyelocytes) > 1% indicates that a LEFT SHIFT is Present. MCH (RBC) [Entitic mass] 30.8 pg 27.0-32.0 [facility] Work Phone: Nucleated RBC/100 WBC (Bld) [Ratio] 0 % 0-5 [facility] Work Phone: MCHC Auto (RBC) [Mass/Vol]on 10-12-2021 MCHC (RBC) [Mass/Vol] 32.2 g/dL 32-36 [facility] Work Phone: Platelets bldon 10-12-2021 Platelets (Bld) [#/Vol] 404 10*3/uL 150-450 [facility] Work Phone: Serum or plasma ferritin aaliyah surement (mass/volume)on 10-12-2021 Ferritin [Mass/Vol] 41 ng/mL 8-252 [facility] Work Phone: Basic Metabolic Panelon 11-09 0-2019 Anion gap [Moles/Vol] 9.00 mmol/L Normal 8.00-16.00 [facility] Comment on above: Order Comment: Items in this order include: Basic Metabolic Panel , Free T4, TSH, ,Testing Performed By: [facility] [address] [place] [address] Dr. Fareed Davis, Coal Tower Operator Performed By: #### C [id number], [id number] #### [facility] [address] [place] [address] B/C Ratio 27.1 Ratio Normal [facility] Comment on above: Order Comment: Items in this order include: Basic Metabolic Panel , Free T4, TSH, ,Testing Performed By: [facility] [address] [place] [place] [address] Dr. Fareed Davis, Coal Tower Operator Performed By: #### C 3132, [id number] #### [facility] [address] [place] [address] Calcium [Mass/Vol] 9.5 mg/dL Normal 8.5-10.5 [facility] Comment on above: Order Comment: Items in this order include: Basic Metabolic Panel , Free T4, TSH, ,Testing Performed By: [facility] [address] [place] [address] Dr. Fareed Davis, Coal Tower Operator Performed By: #### C 3132, [id number] #### [facility] [address] [place] [address] Chloride [Moles/Vol] 104 mmol/L Normal 98-107 [facility] Comment on above: Order Comment: Items in this order include: Basic Metabolic Panel , Free T4, TSH, ,Testing Performed By: [facility] [address] [place] [address] Dr. Fareed Davis, Coal Tower Operator Performed By: #### C 3132, [id number] #### [facility] [address] [place] [address] CO2 [Moles/Vol] 28.0 mmol/L Normal 21.0-32.0 [facility] Comment on above: Order Comment: Items in this order include: Basic Metabolic Panel , Free T4, TSH, ,Testing Performed By: [facility] [address] [place] [address] Dr. Fareed Davis, Coal Tower Operator Performed By: #### C 3132, [id number] #### [facility] [address] [place] [address] Creatinine [Mass/Vol] 0.7 mg/dL Normal 0.1-1.2 [facility] Comment on above: Order Comment: Items in this order include: Basic Metabolic Panel , Free T4, TSH, ,Testing Performed By: [facility] [place] [address] Dr. Fareed Davis, Coal Tower Operator Performed By: #### C 3132, [id number] #### [facility]. [address] [place] [address] [address] [place] [address] GFR/1.73 sq M.predicted MDRD (S/P/Bld) [Vol rate/Area] 83 mL/min per 1.73 Normal >60 [facility] Comment on above: Order Comment: Items in this order include: Basic Metabolic Panel , Free T4, TSH, ,Testing Performed By: [facility] [address] [place] [address]. [place] [address] Dr. Fareed Davis, Coal Tower Operator Result Comment: The GFR estimate is not adjusted for race. If the patient's race is -[place], the GFR estimate must be multiplied by a factor of 1.21. Performed By: #### C 3132, C3133 #### [facility] [address] [facility] [place] [address] Glucose [Mass/Vol] 76 mg/dL Normal 74-100 [facility] Comment on above: Order Comment: Items in this order include: Basic Metabolic Panel , Free T4, TSH, ,Testing Performed By: [facility] [facility] [place] [address] Dr. Fareed Davis, Coal Tower Operator Performed By: #### C 3132, C3133 #### [facility] [address] [place] [address] [address] [place] [address] Potassium [Moles/Vol] 4.2 mmol/L Normal 3.5-5.3 [facility] Comment on above: Order Comment: Items in this order include: Basic Metabolic Panel , Free T4, TSH, ,Testing Performed By: [facility] [address] [facility] [place] [address] Dr. Fareed Davis, Coal Tower Operator Performed By: #### C 3132, C3133 #### [facility] [address] [facility] [address] [place] [address] Sodium [Moles/Vol] 141 mmol/L Normal 135-145 [facility] Comment on above: Order Comment: Items in this order include: Basic Metabolic Panel , Free T4, TSH, ,Testing Performed By: [facility] [facility] [place] [address] Dr. Fareed Davis, Coal Tower Operator Performed By: #### C 3132, C3133 #### [facility] [address] [place] [address] [address] [place] [address] Urea nitrogen [Mass/Vol] 19 mg/dL Normal 6-22 [facility] Comment on above: Order Comment: Items in this order include: Basic Metabolic Panel , Free T4, TSH, ,Testing Performed By: [facility] [facility] [place] [address] Dr. Fareed Davis, Coal Tower Operator Performed By: #### C 3132, C3133 #### [facility] [address] [facility] [address] [place] [address] Free T4on 11-19-2019 Free T4 [Mass/Vol] 1.4 ng/dL Normal 0.7-1.8 [facility] Comment on above: Order Comment: Items in this order include: Basic Metabolic Panel , Free T4, TSH, ,Testing Performed By: [facility] [facility] [place] [address] Dr. Fareed Davis, Coal Tower Operator Performed By: #### C 3132, C3133 #### [facility] [address] [place] [address] Rd [address] [place] [address] TSHon 11-19-2019 TSH Qn 0.88 MIU/mL Normal 0.50-6.00 [facility] Comment on above: Order Comment: Items in this order include: Basic Metabolic Panel , Free T4, TSH, ,Testing Performed By: [facility] [address] [place] [address]. [place] [address] Dr. Fareed Davis, Coal Tower Operator Performed By: #### C 3132, C3133 #### [facility] [address] [place] [address] [address] [place] [address] ACTHon 05-30-2019 ACTH 29.5 pg/ml Normal 7.4-64.3 [facility] Comment on above: Order Comment: add o n Performed By: #### C 4138 #### [facility] [address] [place] [address] [address] [place] [address] Order Comment: Items in this order include: ACTH Testing Performed By: [facility] [address] [place] [address]. [place] [address] Dr. Fareed Davis, Coal Tower Operator Items in this order include: ACTH Testing Performed By: [facility] [address] [place] [address]. [place] [address] Dr. Fareed Davis, Coal Tower Operator add on Cortisol (1 Hour)on 05-30-20 19 Cortisol (1 Hour) 17.80 ug/dL Normal [facility] Comment on above: Order Comment: Items in this order include: Cortisol (1 Hour), , Testing Performed By: [facility] [address] [place] [address]. [place] [address] Dr. Fareed Davis, Coal Tower Operator add on Result Comment: Trever isol AM Normal Range: 10.4-26.4 ug/dL Cortisol PM Normal Range: 4.3-15.0 ug/dL Performed By: #### C 3133 #### [facility] [address] [place] [address] Rd [address] [place] [address] Cortisol (Baseline)on 2018 Cortisol (Baseline) 9.40 ug/dL Normal [facility] Comment on above: Order Comment: Items in this order include: Cortisol (Baseline) , , Testing Performed By: [facility] [address] [place] [address]. [place] [address] Dr. Fareed Davis, Coal Tower Operator Result Comment: Trever isol AM Normal Range: 10.4-26.4 ug/dL Cortisol PM Normal Range: 4.3-15.0 ug/dL Performed By: #### C 3132 #### [facility] [address] [place] [address] Rd [address] [place] [address] Free T4on 05-30-2019 Free T4 [Mass/Vol] 1.4 ng/dL Normal 0.7-1.8 [facility] Comment on above: Order Comment: Items in this order include: Free T4, TSH, , Testing Performed By: [facility] [address] [place] [address]. [place] [address] Dr. Fareed Davis, Coal Tower Operator Performed By: #### C 400, C408 #### [facility] [address] [place] [address] [address] [place] [address] TSHon 05-30-2019 TSH Qn 2.68 MIU/mL Normal 0.50-6.00 [facility] Comment on above: Order Comment: Items in this order include: Free T4, TSH, , Testing Performed By: [facility] [address] [place] [address]. [place] [address] Dr. Fareed Davis, Coal Tower Operator Performed By: #### C 400, C408 #### [facility] [address] [place] [address] [address] [place] [address] ACTHon 04-12-2019 ACTH 14.4 pg/ml Normal 7.4-64.3 [facility] Comment on above: Performed By: #### C 4138 #### [facility] [address] [place] [address] [address] [place] [address] Order Comment: Items in this order include: ACTH Testing Performed By: [facility] [address] [place] [address]. [place] [address] Dr. Fareed Davis, Coal Tower Operator Items in this order include: ACTH Testing Performed By: [facility] [address] [place] [address]. [place] [address] Dr. Fareed Davis, Coal Tower Operator Cortisol (1 Hour)on 04-12-20 19 Cortisol (1 Hour) 14.40 ug/dL Normal [facility] Comment on above: Order Comment: Items in this order include: Cortisol (Baseline) , , , Cortisol (1 Hour) Testing Performed By: [facility] [address] [place] [address] Dr. Fareed Davis, Coal Tower Operator Items in this order include: Cortisol (Baseline) , , , Cortisol (1 Hour) Testing Performed By: [facility] [address] [place] [address] Dr. Fareed Davis, Coal Tower Operator Result Comment: Trever isol AM Normal Range: 10.4-26.4 ug/dL Cortisol PM Normal Range: 4.3-15.0 ug/dL Performed By: #### C 3132, C3133 #### [facility] [address] [place] [address] [place] [address] Cortisol (Baseline)on 2018 Cortisol (Baseline) 4.60 ug/dL Normal [facility] Comment on above: Result Comment: Trever isol AM Normal Range: 10.4-26.4 ug/dL Cortisol PM Normal Range: 4.3-15.0 ug/dL Performed By: #### C 3132, C3133 #### [facility] [address] [place] [address] [address] [place] [address] PROGRESSon 12-14-2017 PROGRESS HNO ID: [id number]: Antonia Norris (Ct)ice: (none)Author Type: Clinical TechnicianType: Progress NotesFiled: 12/14/2017 9:54 AMNote Text:NAME:Emelyn ZaragozaTE: December 14, 2017CC#: [id number] X-Ray and Lower Extremity X-Ray(s): Knee, AP / Lat / MerchantBilateral and Wt. Bearing COMPLETEDTECH ID SIGN[facility] AP/LAT/ARNOLD BILon 12-14-2017 XR KNEE 3V AP/LAT/ARNOLD HIREN * * *Final Report* * *DATE OF EXAM: Dec 14 2017 8:43AM DIDI [id number] - XR KNEE 3V AP/LAT/ARNOLD HIREN / REASON: [id number], unspecified * * * * Physician Interpretation * * * * History: PainFINDINGS: AP, merchant, and crosstable lateral views of both knees have been obtained. The bones are osteopenic. 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 Patient has also had patellar resurfacing bilaterally. No acute bony process is seen. 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 Hardware is intact without evidence of loosening. Osseous structures and joint spaces are unremarkable. The bones are osteopenic.IMPRESSION: Stable bilateral hip and knee prostheses without interval complication.Transcrip tionist: PSCB Transcribe Date/Time: Dec 14 2017 9:09ADictated by : KARON RODRÍGUEZ MDThialison examination was interpreted and the report reviewed and electronically signed by: KARON RODRÍGUEZ MD on Dec 14 2017 9:11AM [id number] [facility] XR PELVIS 1V APon 12-14-2017 XR PELVIS 1V AP * * *Final Report* * *DATE OF EXAM: Dec 14 2017 8:43AM DIDI [id number] - XR PELVIS 1V AP / REASON: [id number], unspecified * * * * Physician Interpretation * * * * History: PainFINDINGS: AP, merchant, and crosstable lateral views of both knees have been obtained. The bones are osteopenic. 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 Patient has also had patellar resurfacing bilaterally. No acute bony process is seen. 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 Hardware is intact without evidence of loosening. Osseous structures and joint spaces are unremarkable. The bones are osteopenic.IMPRESSION: Stable bilateral hip and knee prostheses without interval complication.Transcrip tionist: PSCB Transcribe Date/Time: Dec 14 2017 9:09ADictated by : KARON RODRÍGUEZ MDThis examination was interpreted and the report reviewed and electronically signed by: KARON RODRÍGUEZ MD on Dec 14 2017 9:11AM [id number] Normal [facility] Office Visiton 07-27-2017 Documentation of current medications (procedure) Done Invalid Interpretation Code [facility] Work Phone: Fall risk assessment No Invalid Interpretation Code [facility] Work Phone: Lab Report: Lipid Profileon 07-24-2017 Cholesterol 254 mg/dL High 200 [facility] Work Phone: HDL Cholesterol 71 mg/dL Invalid Interpretation Code [facility] Work Phone: LDL Cholesterol 166 mg/dL High 0-130 [facility] Work Phone: Triglyceride 85 mg/dL Invalid Interpretation Code [facility] Work Phone: very low density lipoproteins 17 mg/dL Invalid Interpretation Code 5-40 [facility] Work Phone: Lab Report: Liver Profileon 07-24-2017 Alanine aminotransferase (ALT) 25 U/L Invalid Interpretation Code 12-78 [facility] Work Phone: Albumin 3.5 g/dL Invalid Interpretation Code 3.4-5.0 [facility] Work Phone: Alkaline phosphatase (ALP) 73 U/L Invalid Interpretation Code 45-117 [facility] Work Phone: Aspartate aminotransferase (AST) 18 U/L Invalid Interpretation Code 15-37 [facility] Work Phone: Bilirubin (direct) 0.07 mg/dL Invalid Interpretation Code 0.00-0.30 [facility] Work Phone: Bilirubin (total) 0.30 mg/dL Invalid Interpretation Code 0.20-1.00 [facility] Work Phone: Globulin 3.7 g/dL Invalid Interpretation Code 2.2-4.2 [facility] Work Phone: Protein 7.2 g/dL Invalid Interpretation Code 6.4-8.2 [facility] Work Phone: Clinical Lists Update: 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 Invalid Interpretation Code [facility] Work Phone: Office Visiton 06-14-2016 Documentation of current medications (procedure) Done Invalid Interpretation Code [facility] Work Phone: Lab Report: Basic Metabolic Profile (BMP)on 06-10-2016 Anion gap 7 mmol/L Invalid Interpretation Code 5-15 [facility] Work Phone: BUN/Creatinine Ratio 27.5 RATIO High 10-20 [facility] Work Phone: Calcium 8.6 mg/dL Invalid Interpretation Code 8.5-10.1 [facility] Work Phone: Chloride 106 mmol/L Invalid Interpretation Code 98-107 [facility] Work Phone: CO2 27.0 mmol/L Invalid Interpretation Code 21.0-32.0 [facility] Work Phone: Creatinine 0.73 mg/dL Invalid Interpretation Code 0.55-1.20 [facility] Phone: Creatinine 51.81 mL/min Invalid Interpretation Code [facility] Phone: eGFR (non-black) 103 mL/min/{1.73_m2} Invalid Interpretation Code >60 [facility] Work Phone: eGFR (non-black) 85 mL/min/{1.73_m2} Invalid Interpretation Code >60 [facility] Work Phone: Glucose mass conc 131 mg/dL High 70-110 [facility] Work Phone: Potassium molar conc 3.7 mmol/L Invalid Interpretation Code 3.5-5.1 [facility] Work Phone: Sodium 140 mmol/L Invalid Interpretation Code 136-145 [facility] Work Phone: Urea nitrogen 20 mg/dL High 7-18 [facility] Work Phone: Lab Report: CBC-Complete Blo od Cnt No Diffon 06-10-2016 Erythrocyte distribution width Auto Ratio (RBC) 13.8 % Invalid Interpretation Code 11.6-14.6 [facility] Work Phone: Erythrocytes (RBC) 3.70 10*6/uL Low 4.2-5.[address] [facility] Work Phone: Hematocrit (HCT) 34.1 % Low 37-47 [facility] Work Phone: Hemoglobin mass conc (Bld) 10.7 g/dL Low 12.0-15.0 [facility] Work Phone: MCH 28.9 pg Invalid Interpretation Code 27.0-32.0 [facility] Work Phone: MCHC mass conc (RBC) 31.4 G/GL Low 32-[address] [facility] Work Phone: MCV 92.2 fL Invalid Interpretation Code 81-99 [facility] Work Phone: Platelets 324 10*3/mm3 Invalid Interpretation Code 150-450 [facility] Work Phone: PMV by Katty 9.6 fL Invalid Interpretation Code 6.2-12.0 [facility] Work Phone: RDW SD 46.3 fL High 35.1-43.9 [facility] Work Phone: WBC (Leukocytes) 9.0 10*3/uL Invalid Interpretation Code 4.4-11.0 [facility] Work Phone: Lab Report: Prealbuminon Prealbumin 21.7 mg/dL Invalid Interpretation Code 20.0-40.0 [facility] Work Phone: Lab Report: Partial Thrombop last Timeon 06-08-2016 aPTT 26.0 s Invalid Interpretation Code 24.1-36.2 [facility] Work Phone: Lab Report: Prothrombin Time w/INRon 06-08-2016 INR Coag RelTime (PPP) 1.0 {INR} Invalid Interpretation Code [facility] Work Phone: Prothrombin time (PT) Coag time (PPP) 12.5 s Invalid Interpretation Code 11.7-14.9 [facility] Work Phone: Replaced Document: Ladonna Sterling CG Observationson 06-08-2016 EKG QRS axis 2 deg Invalid Interpretation Code [facility] Work Phone: Interpretation Sinus Rhythm - occasional ectopic ventricular beat WITHIN NORMAL LIMITS Invalid Interpretation Code [facility] Work Phone: P [place] 51 deg Invalid Interpretation Code [facility] Work Phone: DE Interval 150 ms Invalid Interpretation Code [facility] Work Phone: Pulse (Heart Rate) 69 /min Invalid Interpretation Code [facility] Work Phone: QRS Duration 80 ms Invalid Interpretation Code [facility] Work Phone: QT Interval new path ms Invalid Interpretation Code [facility] Work Phone: T [place] 27 deg Invalid Interpretation Code [facility] Work Phone: Append: evaluation traumatic contusion left lateral legon 05-25-2016 Tobacco use CPHS Never smoker Invalid Interpretation Code [facility] Work Phone: Office Visit: evaluation tra umatic contusion left lateral legon 05-25-2016 Tobacco smoking status NHIS Never Invalid Interpretation Code [facility] Work Phone: Lab Report: Lipid Profileon 03-17-2016 Cholesterol 243 mg/dL High 200 [facility] Work Phone: HDL Cholesterol 75 mg/dL Invalid Interpretation Code [facility] Work Phone: LDL Cholesterol 155 mg/dL High 0-130 [facility] Work Phone: Triglyceride 65 mg/dL Invalid Interpretation Code [facility] Work Phone: very low density lipoproteins 13 mg/dL Invalid Interpretation Code 5-40 [facility] Work Phone: Lab Report: Liver Profileon 03-17-2016 Alanine aminotransferase (ALT) 18 U/L Invalid Interpretation Code 12-78 [facility] Work Phone: Albumin 3.4 g/dL Invalid Interpretation Code 3.4-5.0 [facility] Work Phone: Alkaline phosphatase (ALP) 79 U/L Invalid Interpretation Code 50-136 [facility] Work Phone: Aspartate aminotransferase (AST) 15 U/L Invalid Interpretation Code 15-37 [facility] Work Phone: Bilirubin (direct) 0.10 mg/dL Invalid Interpretation Code 0.00-0.30 [facility] Work Phone: Bilirubin (total) 0.40 mg/dL Invalid Interpretation Code 0.20-1.00 [facility] Work Phone: Globulin 3.6 g/dL High 2.3-3.5 [facility] Work Phone: Protein 7.0 g/dL Invalid Interpretation Code 6.4-8.2 [facility] Work Phone: Lab Report: T4 Free Directon 03-17-2016 Thyroxine (T4) free 1.11 ng/dL Invalid Interpretation Code 0.76-1.46 [facility] Work Phone: Lab Report: Thyroid Stim Hor go (TSH)on 03-17-2016 Thyroid stimulating hormone (TSH) 2.67 u[iU]/mL Invalid Interpretation Code 0.358-3.74 [facility] Work Phone: Lab Report: (P) Urinalysis, Completeon 01-14-2016 Bilirubin Ql (U) Negative Invalid Interpretation Code Negative [facility] Work Phone: NITRITE UR Negative Invalid Interpretation Code Negative [facility] Work Phone: OCCULT BLOOD-UR 10 High Negative [facility] Work Phone: specific gravity, urine 1.005 Invalid Interpretation Code 1.002-1.030 [facility] Work Phone: Urine, clarity Clear Invalid Interpretation Code Clear [facility] Work Phone: Urine, color Straw Invalid Interpretation Code Yellow [facility] Work Phone: Urine, glucose presence Normal mg/dl Invalid Interpretation Code Normal [facility] Work Phone: Urine, ketones presence Negative Invalid Interpretation Code Negative [facility] Work Phone: Urine, leukocyte esterase presence 500 High Negative [facility] Work Phone: Urine, pH 7.0 [pH] Invalid Interpretation Code 5.0 - 8.0 [facility] Work Phone: Urine, protein Negative Invalid Interpretation Code Negative [facility] Work Phone: UROBILI Normal mg/dl Invalid Interpretation Code Normal [facility] Work Phone: Lab Report: CRPon 01-14-2016 C reactive protein (CRP) 2.14 mg/dL High Units converted. See lab report for original value. [facility] Work Phone: Lab Report: Erythrocyte Sed Rateon 01-14-2016 Erythrocyte sedimentation rate 29 mm/h Invalid Interpretation Code 0-30 [facility] Work Phone: Lab Report: Fibrinogenon Fibrinogen in platelet poor plasma 448 mg/dL High 203-444 [facility] Work Phone: Lab Report: Urinalysis, Comp leteon 01-14-2016 Urine, bacteria in sediment 0 /[HPF] Invalid Interpretation Code None Seen [facility] Work Phone: Urine, epithelial cells in sediment 0 SEEN Invalid Interpretation Code 5-10 [facility] Work Phone: Urine, erythrocytes in sediment by volume 0 SEEN Invalid Interpretation Code 0-5 [facility] Work Phone: Urine, mucus presence in sediment 0 SEEN Invalid Interpretation Code [facility] Work Phone: WBC (Leukocytes) 5-10 SEEN Invalid Interpretation Code 0-5 [facility] Work Phone: Replaced Document: (P) CBC W /Diff, Automatedon 01-14-2016 Absolute Neut 8.3 X10 3/UL High 2.0-7.7 [facility] Work Phone: Basophils/100 WBC Auto (Bld) 0.5 % Invalid Interpretation Code 0-1 [facility] Work Phone: Eosinophils/100 leukocytes 1.5 % Invalid Interpretation Code 0-5 [facility] Work Phone: Immature granulocytes/100 WBC (Bld) 0.100 % Invalid Interpretation Code 0.0-0.9 [facility] Work Phone: Lymphocytes 2.11 X10 3/UL Invalid Interpretation Code 0.83-4.51 [facility] Work Phone: Lymphocytes/100 leukocytes 19.0 % Invalid Interpretation Code 19-41 [facility] Work Phone: Monocytes/100 leukocytes 4.1 % Invalid Interpretation Code 0-10 [facility] Work Phone: Neutrophils/100 WBC Auto (Bld) 74.8 % High 47-70 [facility] Work Phone: Lab Report: T4 Total, Thyrox inon 06-12-2015 Thyroxine (T4) 12.3 ug/dL Invalid Interpretation Code 4.8-13.9 [facility] Work Phone: Office Visiton 12-18-2014 cardiac risk group C Invalid Interpretation Code [facility] Work Phone: General cardiovascular disease 10Y risk [#] [place].Lisa'Javi N/A Invalid Interpretation Code [facility] Work Phone: Clinical Lists Update: 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 back 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 08-28-2014 Cholesterol to HDL Ratio 3.08 {ratio} Invalid Interpretation Code [facility] Work Phone: LDL to HDL Ratio 1.93 Invalid Interpretation Code [facility] Work Phone: Clinical Lists Update: Prelo belt back operator 10-20-2012 basophils as percent of blood leukocytes, manual count 0.7 % Invalid Interpretation Code [facility] Work Phone: eosinophils as percent of blood leukocytes, manual count 3.2 % Invalid Interpretation Code [facility] Work Phone: neutrophils, band form as percent of blood leukocytes, manual count 64.9 % Invalid Interpretation Code [facility] Work Phone: Culture, urine Bacteria identified Cx Nom (U) Escherichia coli [facility] Work Phone: Vital Signs Date Time Vital Sign Value Performing Clinician Faci lity 07-28-2023 13:49-0500 Body height 165.1 cm Devan May MD Work Phone: [facility] 07-28-2023 13:49-0500 Body mass index (BMI) [Ratio] 31.06 kg/m2 Devan May MD Work Phone: [facility] 07-28-2023 13:49-0500 Body weight 84.66 kg Devan May MD Work Phone: [facility] 07-28-2023 13:49-0500 Diastolic blood pressure 67 mm[Hg] Devan May MD Work Phone: [facility] 07-28-2023 13:49-0500 Heart rate 79 /min Devan May MD Work Phone: [facility] 07-28-2023 13:49-0500 Systolic blood pressure 135 mm[Hg] Devan May MD Work Phone: [facility] 07-21-2023 07:34-0500 Body temperature 98.3 [degF] Dr. Agata Maradiaga Work Phone: [facility] 07-21-2023 07:34-0500 Diastolic blood pressure 62 mm[Hg] Dr. Agata Maradiaga Work Phone: [facility] 07-21-2023 07:34-0500 Heart rate 67 /min Dr. Agata Maradiaga Work Phone: [facility] 07-21-2023 07:34-0500 Respiratory rate 18 /min Dr. Agata Maradiaga Work Phone: [facility] 07-21-2023 07:34-0500 SaO2% (BldA) [Mass fraction] 96 % Dr. Agata Maradiaga Work Phone: [facility] 07-21-2023 07:34-0500 Systolic blood pressure 139 mm[Hg] Dr. Agata Maradiaga Work Phone: [facility] 07-21-2023 06:18-0500 Body height 165.[address] Agata Maradiaga Work Phone: [facility] 07-21-2023 06:18-0500 Body mass index (BMI) [Ratio] 31 kg/m2 Dr. Agata Maradiaga Work Phone: [facility] 07-21-2023 06:18-0500 Body weight 84.[address] Agata Maradiaga Work Phone: [facility] 06-26-2023 09:08-0400 Body temperature 96.7 [degF] Dr. Agata Maradiaga Work Phone: [facility] 06-26-2023 09:08-0400 Diastolic blood pressure 68 mm[Hg] Dr. Agata Maradiaga Work Phone: [facility] 06-26-2023 09:08-0400 Heart rate 70 /min Dr. Agata Maradiaga Work Phone: [facility] 06-26-2023 09:08-0400 Respiratory rate 17 /min Dr. Agata Maradiaga Work Phone: [facility] 06-26-2023 09:08-0400 SaO2% (BldA) [Mass fraction] 97 % Dr. Agata Maradiaga Work Phone: [facility] 06-26-2023 09:08-0400 Systolic blood pressure 148 mm[Hg] Dr. Agata Maradiaga Work Phone: [facility] 01-27-2023 12:03-0400 Body temperature 97.5 [degF] Dr. Agata Maradiaga Work Phone: [facility] 01-27-2023 12:03-0400 Diastolic blood pressure 72 mm[Hg] Dr. Agata Maradiaga Work Phone: [facility] 01-27-2023 12:03-0400 Heart rate 68 /min Dr. Agata Maradiaga Work Phone: [facility] 01-27-2023 12:03-0400 Respiratory rate 16 /min Dr. Agata Maradiaga Work Phone: [facility] 01-27-2023 12:03-0400 SaO2% (BldA) [Mass fraction] 96 % Dr. Agata Maradiaga Work Phone: [facility] 01-27-2023 12:03-0400 Systolic blood pressure 142 mm[Hg] Dr. Agata Maradiaga Work Phone: [facility] 01-27-2023 09:34-0400 Body height 165.[address] Agata Maradiaga Work Phone: [facility] 01-27-2023 09:34-0400 Body mass index (BMI) [Ratio] 29.7 kg/m2 Dr. Agata Maradiaga Work Phone: [facility] 01-27-2023 09:34-0400 Body weight [address] Agata Maradiaga Work Phone: [facility] 01-23-2023 13:11-0400 Body mass index (BMI) [Ratio] 29.7 kg/m2 Dr. Agata Maradiaga Work Phone: [facility] 01-23-2023 13:11-0400 Body weight 81.[address] Agata Maradiaga Work Phone: [facility] 01-23-2023 13:11-0400 Diastolic blood pressure 82 mm[Hg] Dr. Agata Maradiaga Work Phone: [facility] 01-23-2023 13:11-0400 Respiratory rate 18 /min Dr. Agata Maradiaga Work Phone: [facility] 01-23-2023 13:11-0400 Systolic blood pressure 148 mm[Hg] Dr. Agata Maradiaga Work Phone: [facility] 12-15-2022 10:22-0400 Body height 165.[address] Agata Maradiaga Work Phone: [facility] 12-15-2022 10:22-0400 Body mass index (BMI) [Ratio] 30.1 kg/m2 Dr. Agata Maradiaga Work Phone: [facility] 12-15-2022 10:22-0400 Body weight 82.[address] Agata Maradiaga Work Phone: [facility] 12-02-2022 16:19-0400 Body temperature 98.7 [degF] Dr. Agata Maradiaga Work Phone: [facility] 12-02-2022 16:19-0400 Diastolic blood pressure 59 mm[Hg] Dr. Agata Maradiaga Work Phone: [facility] 12-02-2022 16:19-0400 Heart rate 78 /min Dr. Agata Maradiaga Work Phone: [facility] 12-02-2022 16:19-0400 Respiratory rate 16 /min Dr. Agata Maradiaga Work Phone: [facility] 12-02-2022 16:19-0400 SaO2% (BldA) [Mass fraction] 98 % Dr. Agata Maradiaga Work Phone: [facility] 12-02-2022 16:19-0400 Systolic blood pressure 142 mm[Hg] Dr. Agata Maradiaga Work Phone: [facility] 12-02-2022 10:03-0400 Body height 165.[address] Agata Maradiaga Work Phone: [facility] 12-02-2022 10:03-0400 Body mass index (BMI) [Ratio] 30.4 kg/m2 Dr. Agata Maradiaga Work Phone: [facility] 12-02-2022 10:03-0400 Body weight [address] Agata Maradiaga Work Phone: [facility] 11-21-2022 09:30-0400 Body mass index (BMI) [Ratio] 31.6 kg/m2 Dr. Agata Maradiaga Work Phone: [facility] 11-21-2022 09:30-0400 Body temperature 96.2 [degF] Dr. Agata Maradiaga Work Phone: [facility] 11-21-2022 09:30-0400 Body weight 86.[address] Agata Maradiaga Work Phone: [facility] 11-21-2022 09:30-0400 Diastolic blood pressure 72 mm[Hg] Dr. Agata Maradiaga Work Phone: [facility] 11-21-2022 09:30-0400 Heart rate 84 /min Dr. Agata Maradiaga Work Phone: [facility] 11-21-2022 09:30-0400 Respiratory rate 17 /min Dr. Agata Maradiaga Work Phone: [facility] 11-21-2022 09:30-0400 SaO2% (BldA) [Mass fraction] 96 % Dr. Agata Maradiaga Work Phone: [facility] 11-21-2022 09:30-0400 Systolic blood pressure 153 mm[Hg] Dr. Agata Maradiaga Work Phone: [facility] 10-13-2022 09:29-0500 Body mass index (BMI) [Ratio] 30.8 kg/m2 Dr. Agata Maradiaga Work Phone: [facility] 10-13-2022 09:29-0500 Body weight 85.[address] Agata Maradiaga Work Phone: [facility] 02-02-2023 09:29-0500 Diastolic blood pressure 75 mm[Hg] Dr. Agata Maradiaga Work Phone: [facility] 10-13-2022 09:29-0500 Heart rate 79 /min Dr. Agata Maradiaga Work Phone: [facility] 10-13-2022 09:29-0500 Respiratory rate 18 /min Dr. Agata Maradiaga Work Phone: [facility] 10-13-2022 09:29-0500 SaO2% (BldA) [Mass fraction] 99 % Dr. Agata Maradiaga Work Phone: [facility] 10-13-2022 09:29-0500 Systolic blood pressure 157 mm[Hg] Dr. Agata Maradiaga Work Phone: [facility] 08-29-2022 08:51-0500 Body mass index (BMI) [Ratio] 30.6 kg/m2 Dr. Agata Maradiaga Work Phone: [facility] 08-29-2022 08:51-0500 Body temperature 97 [degF] Dr. Agata Maradiaga Work Phone: [facility] 08-29-2022 08:51-0500 Body weight 84.[address] Agata Maradiaga Work Phone: [facility] 08-29-2022 08:51-0500 Diastolic blood pressure 78 mm[Hg] Dr. Agata Maradiaga Work Phone: [facility] 08-29-2022 08:51-0500 Heart rate 80 /min Dr. Agata Maradiaga Work Phone: [facility] 08-29-2022 08:51-0500 Respiratory rate 17 /min Dr. Agata Maradiaga Work Phone: [facility] 08-29-2022 08:51-0500 SaO2% (BldA) [Mass fraction] 97 % Dr. Agata Maradiaga Work Phone: [facility] 08-29-2022 08:51-0500 Systolic blood pressure 154 mm[Hg] Dr. Agata Maradiaga Work Phone: [facility] 04-27-2022 09:09-0400 Body height 167.[address] Agata Maradiaga Work Phone: [facility] Work Phone: 04-27-2022 09:09-0400 Body mass index (BMI) [Ratio] 29.8 kg/m2 Dr. Agata Maradiaga Work Phone: [facility] Work Phone: 04-27-2022 09:09-0400 Body weight 83.[address] Agata Maradiaga Work Phone: [facility] Work Phone: 04-27-2022 09:09-0400 Diastolic blood pressure 76 mm[Hg] Dr. Agata Maradiaga Work Phone: [facility] Work Phone: 04-27-2022 09:09-0400 Heart rate 70 /min Dr. Agata Maradiaga Work Phone: [facility] Work Phone: 04-27-2022 09:09-0400 Respiratory rate 16 /min Dr. Agata Maradiaga Work Phone: [facility] Work Phone: 04-27-2022 09:09-0400 SaO2% (BldA) [Mass fraction] 97 % Dr. Agata Maradiaga Work Phone: [facility] Work Phone: 04-27-2022 09:09-0400 Systolic blood pressure 147 mm[Hg] Dr. Agata Maradiaga Work Phone: [facility] Work Phone: 04-15-2022 11:14-0400 Body temperature 97.6 [degF] Dr. Agata Maradiaga Work Phone: [facility] Work Phone: 04-15-2022 11:14-0400 Diastolic blood pressure 68 mm[Hg] Dr. Agata Maradiaga Work Phone: [facility] Work Phone: 04-15-2022 11:14-0400 Heart rate 95 /min Dr. Agata Maradiaga Work Phone: [facility] Work Phone: 04-15-2022 11:14-0400 Respiratory rate 16 /min Dr. Agata Maradiaga Work Phone: [facility] Work Phone: 04-15-2022 11:14-0400 SaO2% (BldA) [Mass fraction] 97 % Dr. Agata Maradiaga Work Phone: [facility] Work Phone: 04-15-2022 11:14-0400 Systolic blood pressure 158 mm[Hg] Dr. Agata Maradiaga Work Phone: [facility] Work Phone: 03-25-2022 11:02-0400 Body temperature 96.4 [degF] Dr. Agata Maradiaga Work Phone: [facility] Work Phone: 03-25-2022 11:02-0400 Diastolic blood pressure 62 mm[Hg] Dr. Agata Maradiaga Work Phone: [facility] Work Phone: 03-25-2022 11:02-0400 Heart rate 85 /min Dr. Aagta Maradiaga Work Phone: [facility] Work Phone: 03-25-2022 11:02-0400 Respiratory rate 115 /min Dr. Agata Maradiaga Work Phone: [facility] Work Phone: 03-25-2022 11:02-0400 SaO2% (BldA) [Mass fraction] 97 % Dr. Agata Maradiaga Work Phone: [facility] Work Phone: 03-25-2022 11:02-0400 Systolic blood pressure 150 mm[Hg] Dr. Agata Maradiaga Work Phone: [facility] Work Phone: 02-16-2022 08:51-0400 Body height 160 cm Alex Back MD Work Phone: [facility] 02-16-2022 08:51-0400 Body weight 83.01 kg Alex Back MD Work Phone: [facility] 02-16-2022 08:51-0400 Diastolic blood pressure 62 mm[Hg] Alex Back MD Work Phone: [facility] 02-16-2022 08:51-0400 Systolic blood pressure 142 mm[Hg] Alex Back MD Work Phone: [facility] 12-16-2021 09:04-0400 Body height 167.[address] Agata Maradiaga Work Phone: [facility] Work Phone: 12-16-2021 09:04-0400 Body mass index (BMI) [Ratio] 30.8 kg/m2 Dr. Agata Maradiaga Work Phone: [facility] Work Phone: 12-16-2021 09:04-0400 Body temperature 97.1 [degF] Dr. Agata Maradiaga Work Phone: [facility] Work Phone: 12-16-2021 09:04-0400 Body weight 86.[address] Agata Maradiaga Work Phone: [facility] Work Phone: 12-16-2021 09:04-0400 Diastolic blood pressure 78 mm[Hg] Dr. Agata Maradiaga Work Phone: [facility] Work Phone: 12-16-2021 09:04-0400 Heart rate 65 /min Dr. Agata Maradiaga Work Phone: [facility] Work Phone: 12-16-2021 09:04-0400 Respiratory rate 16 /min Dr. Agata Maradiaga Work Phone: [facility] Work Phone: 12-16-2021 09:04-0400 SaO2% (BldA) [Mass fraction] 98 % Dr. Agata Maradiaga Work Phone: [facility] Work Phone: 12-16-2021 09:04-0400 Systolic blood pressure 138 mm[Hg] Dr. Agata Maradiaga Work Phone: [facility] Work Phone: 12-16-2021 09:04-0400 Body height 167.[address] Agata Maradiaga Work Phone: [facility] Work Phone: 12-16-2021 09:04-0400 Body mass index (BMI) [Ratio] 30.8 kg/m2 Dr. Agata Maradiaga Work Phone: [facility] Work Phone: 12-16-2021 09:04-0400 Body temperature 97.1 [degF] Dr. Agata Maradiaga Work Phone: [facility] Work Phone: 12-16-2021 09:04-0400 Body weight 86.[address] Agata Maradiaga Work Phone: [facility] Work Phone: 12-16-2021 09:04-0400 Diastolic blood pressure 78 mm[Hg] Dr. Agata Maradiaga Work Phone: [facility] Work Phone: 12-16-2021 09:04-0400 Heart rate 65 /min Dr. Agata Maradiaga Work Phone: [facility] Work Phone: 12-16-2021 09:04-0400 Respiratory rate 16 /min Dr. Agata Maradiaga Work Phone: [facility] Work Phone: 12-16-2021 09:04-0400 SaO2% (BldA) [Mass fraction] 98 % Dr. Agata Maradiaga Work Phone: [facility] Work Phone: 12-16-2021 09:04-0400 Systolic blood pressure 138 mm[Hg] Dr. Agata Maradiaga Work Phone: [facility] Work Phone: 07-27-2017 14:47-0500 BMI (Body Mass Index) 26.94 kg/m2 [facility] [employer] Work Phone: 07-27-2017 14:47-0500 BP Diastolic 60 mm[Hg] Harumi DeFinis [facility] Work Phone: 07-27-2017 14:47-0500 BP Systolic 150 mm[Hg] Harumi DeFinis [facility] Work Phone: 07-27-2017 14:47-0500 Height 170.18 cm Harumi DeFinis [facility] Work Phone: 07-27-2017 14:47-0500 Pulse (Heart Rate) 72 /min Harumi DeFinis [facility] Work Phone: 07-27-2017 14:47-0500 Respiratory Rate 20 /min Harumi DeFinis [facility] Work Phone: 07-27-2017 14:47-0500 Weight 78.02 kg [employer] DeFinis [facility] Work Phone: 06-14-2016 13:52-0400 BMI (Body Mass Index) 28.97 kg/m2 Leticia Desai RN [facility] Work Phone: 06-14-2016 13:52-0400 BP Diastolic 60 mm[Hg] Leticia Desai RN [facility] Work Phone: 06-14-2016 13:52-0400 BP Systolic 120 mm[Hg] Leticia Desai RN [facility] Work Phone: 06-14-2016 13:52-0400 BSA (Body Surface Area) 1.96 m2 Leticia Desai RN [facility] Work Phone: 06-14-2016 13:52-0400 Pulse (Heart Rate) 72 /min Leticia Desai RN [facility] Work Phone: 06-14-2016 13:52-0400 Respiratory Rate 20 /min Leticia Desai RN [facility] Work Phone: 06-14-2016 13:52-0400 Weight 83.92 kg Leticia Desai RN [facility] Work Phone: 05-25-2016 10:28-0400 Body Temperature 96.4 [degF] Leticia Desai RN [facility] Work Phone: 12-07-2011 11:58-0400 Height 170.18 cm Leticia Desai RN [facility] Work Phone: Encounters Encounter Date Encounter Type Care Provider Facility Start: 01-16-2025 End: 01-16-2025 ambulatory [facility] [place] Facility:[facility] Start: 11-13-2024 ambulatory [facility] [place] Facility: [facility] Start: 04-30-2024 End: 04-30-2024 ambulatory [facility] Facility:[facility] Start: 03-25-2024 End: 03-25-2024 ambulatory [facility] Facility:[facility] Start: 02-22-2024 End: 02-22-2024 ambulatory [facility] [place] Facility:[facility] Start: 09-07-2023 Telephone encounter Devan orellana MD Work Phone: [facility] Comment on above: Results Start: 09-05-2023 End: 09-06-2023 ambulatory DEVAN MAY [facility] Start: 09-05-2023 End: 09-05-2023 Subsequent hospital visit by physician Devan May MD Work Phone: [facility] Comment on above: New onset of headach es after age 49 Start: 09-05-2023 End: 09-05-[address] Agata Maradiaga Work Phone: [facility] Work Phone: Start: 09-05-2023 End: 09-05-[address] Agata Maradiaga Work Phone: [facility]-Physical Therapy Work Phone: Start: 07-28-2023 End: 07-28-[address] Agata Maradiaga Work Phone: [facility] Work Phone: Start: 07-28-2023 End: [address] Agata Maradiaga Work Phone: [facility] Work Phone: Start: 07-28-2023 End: 07-28-2023 Subsequent hospital visit by physician Devan May MD Work Phone: [facility] X[facility] Comment on above: Cervico-occipital ne uralgia Start: 07-28-2023 End: 07-28-2023 Office outpatient new 30 minutes Devan May MD Work Phone: [facility] Comment on above: New onset of headach es after age 49 (Primary Dx); Cervico-occipital neuralgia Start: 07-21-2023 Non-patient / Non-visit Dr. Selin Maradiaga Work Phone: [facility] Start: 07-21-2023 End: 07-21-2023 Admission to same day surgery center Dr. Agata Maradiaga Work Phone: [facility]-Endoscopy Work Phone: Start: 07-21-2023 End: 07-21-[address] Agata Maradiaga Work Phone: [facility] Work Phone: Start: 07-17-2023 End: 07-17-[address] Agata Maradiaga Work Phone: [facility] Work Phone: Start: 07-17-2023 End: 07-17-[address] Agata Maradiaga Work Phone: [facility]-Radiology, [facility] Work Phone: Start: 07-14-2023 End: 07-14-[address] Agata Maradiaga Work Phone: [facility] Work Phone: Start: 06-26-2023 End: 06-26-[address] Agata Maradiaga Work Phone: [facility] Work Phone: Start: 05-29-2023 End: 05-29-[address] Agata Maradiaga Work Phone: [facility] Work Phone: Start: 03-06-2023 End: 03-07-2023 ambulatory AGATA MARADIAGA Facility:[facility] Start: 03-06-2023 Encounter for gynecological examination (general) (routine) without abnormal findings ALEX BACK [facility] [place] Start: 02-20-2023 End: 02-20-[address] Agata Maradiaga Work Phone: [facility] Work Phone: Start: 02-20-2023 End: 02-20-[address] Agata Maradiaga Work Phone: [facility]-Outpatient Breast Imaging Start: 02-13-2023 End: 02-13-[address] Agata Maradiaga Work Phone: [facility] Start: 01-27-2023 Non-patient / Non-visit Dr. Selin Maradiaga Work Phone: [facility] Start: 01-27-2023 End: 01-27-2023 Admission to same day surgery center [facility] Start: 01-23-2023 End: 01-23-[address] Agata Maradiaga Work Phone: [facility] Start: 01-11-2023 End: 01-11-[address] Agata Maradiaga Work Phone: [facility] Work Phone: Start: 01-11-2023 End: 01-11-[address] Agata Maradiaga Work Phone: [facility] Start: 01-05-2023 End: 01-05-[address] Agata Maradiaga Work Phone: [facility] Work Phone: Start: 01-05-2023 End: 01-05-[address] Agata Maradiaga Work Phone: [facility] Start: 12-15-2022 End: 12-15-[address] Agata Maradiaga Work Phone: [facility] Start: 12-12-2022 End: 12-12-[address] Agata Maradiaga Work Phone: [facility] Start: 12-02-2022 Non-patient / Non-visit Dr. Selin Maradiaga Work Phone: [facility] Start: 12-02-2022 End: 12-02-2022 Admission to same day surgery center Dr[facility] Agata [facility]aga [facility] Start: 12-02-2022 End: 12-02-[address] Agata Maradiaga Work Phone: [facility] Work Phone: Start: 11-29-2022 End: 11-29-2022 Non-patient / Non-visit Dr. Agata Maradiaga Work Phone: [facility] Start: 11-21-2022 End: 11-21-[address] Agata Maradiaga Work Phone: [facility] Start: 10-13-2022 End: 10-13-[address] Agata Maradiaga Work Phone: [facility] Start: 08-29-2022 End: 08-29-[address] Agata Maradiaga Work Phone: [facility] Start: 05-04-2022 End: 05-04-2022 ambulatory WILMER JUAREZ Facility:[facility] Start: 05-04-2022 End: 05-04-2022 Patient encounter procedure Wilmer Juarez DO Work Phone: [facility] Comment on above: Contusion of left kn ee, initial encounter (Primary Dx); Status post revision of total knee replacement, left Start: 05-04-2022 End: 05-04-2022 Subsequent hospital visit by physician Alex [facility] Work Phone: Radiology Comment on above: Left knee pain, unsp ecified chronicity [M25.562] Start: 05-03-2022 Orders Only Wilmer Wagner Work Phone: Orthopaedics Comment on above: Left knee pain, unsp ecified chronicity (Primary Dx) Start: 04-30-2022 End: 04-30-[address] Agata Maradiaga Work Phone: [facility] Work Phone: Start: 04-30-2022 End: 04-30-[address] Agata Maradiaga Work Phone: [facility]-Laboratory Start: 04-27-2022 End: 04-27-[address] Agata Maradiaga Work Phone: [facility] Start: 04-27-2022 End: 04-27-[address] Agata Maradiaga Work Phone: [facility] Start: 04-15-2022 End: 04-15-[address] Agata Maradiaga Work Phone: [facility] Start: 03-30-2022 End: 03-30-[address] Agata Maradiaga Work Phone: [facility]-Laboratory, Specimen Start: 03-25-2022 End: 03-25-[address] Agata Maradiaga Work Phone: [facility] Start: 03-23-2022 End: 03-23-[address] Agata Maradiaga Work Phone: [facility] Start: 03-01-2022 End: 03-01-[address] Agata Maradiaga Work Phone: [facility] Start: 02-16-2022 End: 02-16-2022 Patient encounter procedure Alex Back MD Work Phone: OB/Gynecology Comment on above: Pap smear of cervix with ASCUS, cannot exclude HGSIL (Primary Dx); Encounter for gynecological examination (general) (routine) without abnormal findings; Pap smear for cervical cancer screening; History of loop electrical excision procedure (LEEP) Start: 02-16-2022 End: 02-16-2022 Patient encounter status Alex Back MD Work Phone: OB/Gynecology Start: 01-25-2022 End: 01-25-[address] Agata Maradiaga Work Phone: [facility]-Cat Scan, [facility] Start: 01-12-2022 End: 01-12-[address] Agata Maradiaga Work Phone: [facility]-MRI - [facility] Start: 01-11-2022 End: 01-11-[address] Agata Maradiaga Work Phone: [facility]-Ultrasound, [facility] Start: 12-23-2021 End: 12-23-[address] Agata Maradiaga Work Phone: [facility]-Radiology, [facility] Start: 12-16-2021 End: 12-16-[address] [facility] Start: 12-16-2021 End: 12-16-[address] Agata Maradiaga Work Phone: [facility] Start: 12-10-2021 End: 12-10-[address] Agata Maradiaga Work Phone: [facility]-Outpatient Breast Imaging Start: 12-06-2021 Orders Only Alex yanez MD Work Phone: Appointment Center Comment on above: Encounter for screen ing mammogram for malignant neoplasm of breast (Primary Dx) Start: 10-12-2021 End: 10-12-[address] Agata Maradiaga Work Phone: [facility] Start: 12-14-2017 End: 12-14-2017 Ambulatory MARTIN Mendoza (ASIYA JUAREZ [facility] Procedures Date Procedure Procedure Detail Performing Clinician Start: 07-21-[address] Agata patricia Work Phone: Start: 07-17-[address] Agata Maradiaga Work Phone: Start: 02-20-2023 End: 02-20-[address] Agata Maradiaga Work Phone: Start: 12-15-2022 X-ray of lumbar spine, two or three views Dr. Agata Maradiaga Work Phone: Start: 12-02-2022 Laparoscopic, Inguinal Hernia Repair (Left) Dr. Agata Maradiaga Work Phone: Start: 05-04-2022 Radiologic exam knee complete 4/more views Wilmer Larry BETANCOURT Work Phone: Start: 04-27-2022 X-ray of both feet Dr. Agata Maradiaga Work Phone: Start: 04-15-2022 Radiologic examination of knee Dr. Agata Maradiaga Work Phone: Start: 03-23-2022 MRI of lumbar spine Dr. Agata Maradiaga Work Phone: Start: 03-01-2022 MRI of joint of lower extremity Dr. Agata Maradiaga Work Phone: Start: 01-25-2022 Computed tomography of abdomen and pelvis with contrast Dr. Agata Maradiaga Work Phone: Start: 01-12-[address] Agata Maradiaga Work Phone: Start: 01-11-[address] Agata Maradiaga Work Phone: Start: 12-23-2021 Plain x-ray of pelvis and lower extremity Dr. Agata Maradiaga Work Phone: Start: 12-10-2021 End: 12-10-[address] Agata Maradiaga Work Phone: Start: 03-30-2021 Adult depression screening assessment Alex Back MD Work Phone: Start: 11-30-2020 Mammography Alex Back MD Work Phone: Start: 09-11-[address] JASKARAN SYLVESTER MD Comment on above: RIGHT Start: 07-27-2017 End: 07-27-2017 [employer]EVE [employer]ESS[employer]PER[employer] Sunny Gonzalez MD Start: 07-27-2017 End: 07-27-2017 Follow Up Appt 6 months Maxime Evans Start: 07-10-2017 End: 07-25-2017 *Hepatic Function Panel Maxime Evans Start: 07-10-2017 End: 07-25-2017 Lipid 1996 panel - Serum or Plasma Sunny Gonzalez MD Start: 04-04-2017 End: 07-10-2017 *Hepatic Function Panel Mary Kate Kramer PA-C Work Phone: Start: 04-04-2017 End: 07-10-2017 Lipid 1996 panel - Serum or Plasma Bonnie Kramer PA-C Work Phone: Start: 06-14-2016 End: 06-14-2016 Follow Up Appt 6 months Maxime Evans Start: 06-14-2016 End: 06-14-2016 MMM Sunny Gonzalez MD Start: 06-08-2016 End: 11-30-2016 Ecg routine ecg w/least 12 lds w/i&r Sunny Gonzalez MD Start: 05-25-2016 End: 06-08-2016 Follow Up Appt Other Devan Zaman MD Start: 05-25-2016 End: 05-26-2016 Radiologic examination tibia & fibula 2 views Devan Zaman MD Start: 01-14-2016 End: 01-15-2016 Bacteria identified in Urine by Culture Agata Maradiaga DO Work Phone: Start: 01-12-2016 End: 01-14-2016 Urinalysis complete panel - Urine Agata Maradiaga DO Work Phone: Start: 12-09-2015 End: 03-17-2016 *Hepatic Function Panel Mary Kate Kramer PA-C Work Phone: Start: 12-09-2015 End: 12-09-2015 SLEEVE PRESSER 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 Mary Kate Kramer PA-C Work Phone: Start: 12-09-2015 End: 12-21-2015 Ecg routine ecg w/least 12 lds w/i&r Mary Kate Kramer PA-C Work Phone: Start: 12-09-2015 End: 12-09-2015 Follow Up Appt 6 months Mary Kate Kramer PA-C Work Phone: Start: 12-09-2015 End: 03-17-2016 Lipid 1996 panel - Serum or Plasma Bonnie Kramer PA-C Work Phone: Start: 12-09-2015 End: 12-21-2015 Nuclear stress test -exercise Mary Kate Kramer PA-C Work Phone: Start: 06-12-2015 End: 06-12-2015 Documentation of current medications Sunny Gonzalez MD Start: 06-12-2015 End: 06-12-2015 Follow Up Appt 6 months Maxime Evans Start: 06-12-2015 End: 06-12-2015 MMM Sunny Gonzalez MD Start: 06-12-2015 End: 06-15-2015 Thyrotropin [Units/volume] in Serum or Plasma Sunny Gonzalez MD Start: 06-12-2015 End: 06-15-2015 Thyroxine (T4) [Mass/volume] in Serum or Plasma Sunny Gonzalez MD Start: 12-18-2014 End: 12-18-2014 AME Gonzalez MD Start: 12-18-2014 End: 12-19-2014 Documentation of current medications Sunny Gonzalez MD Start: 12-18-2014 End: 12-18-2014 Follow Up Appt 6 months Maxime Evans Start: 09-11-2014 Total replacement of hip DR JASKARAN Andino MD Comment on above: BILATERAL HIPS DONE 3 MONTHS APART Start: 10-31-2013 End: 10-31-2013 AME Gonzalez MD Start: 10-31-2013 End: 10-31-2013 Follow Up Appt 6 months Maxime Evans Start: 04-30-2013 End: 04-30-2013 AME Gonzalez MD Start: 04-30-2013 End: 04-30-2013 Follow Up Appt 6 months Maxime Evans Start: 10-29-2012 End: 10-29-2012 Follow Up Appt 6 months Maxime Evans Start: 10-29-2012 End: 11-01-2012 Nuclear stress test -exercise Sunny Genao MD Start: 09-11-[address] JASKARAN SYLVESTER MD Comment on above: RIGHT Start: 08-01-2012 End: 08-01-2012 Follow Up Appt 6 months Maxime Evans Start: 12-07-2011 End: 12-07-2011 Follow Up Appt 6 months Maxime Evans Start: 04-21-2011 History of placement of stent for coronary artery disease S/P insertion of non-drug eluting coronary artery stent Alex Rickey MD Work Phone: Start: 02-28-2011 Colonoscopy Alex Back MD Work Phone: Start: 09-11-[address] JASKARAN SYLVESTER MD Comment on above: RIGHT Start: 09-11-2008 Decompression of median nerve DR JASKARAN SYLVESTER MD Comment on above: RIGHT Start: 12-14-2007 History of placement of stent for coronary artery disease History of coronary artery stent placement Dr. Agata Maradiaga Work Phone: Start: 09-11-[address] JASKARAN SYLVESTER MD Comment on above: ANGIOPLASTY WITH STENT PLACEMENT Start: 09-11-[address] JASKARAN SYLVESTER MD Comment on above: LEFT Start: 09-11-[address] JASKARAN SYLVESTER MD Comment on above: LEFT Start: 09-11-2000 Cardiac ablation using fluoroscopy guidance DR JASKARAN SYLVESTER MD Comment on above: X2. SECOND IN 2001 H/O: surgery History of loop electrical excision procedure (LEEP) Alex Back MD Work Phone: Urine culture Dr. Agata nelson Work Phone: Plan of Treatment Date Care Activity Detail Author Start: 03-14-2028 DTaP/Tdap/Td Vaccine s (4 - Td or Tdap) DTaP/Tdap/Td Vaccines (4 - Td or Tdap) [facility] Start: 03-14-2028 Urine microalbumin profile DTAP,TDAP,TD (3 - Td or Tdap) [facility] Start: 04-01-2024 DIABETES SCREEN DIABETES SCREEN [facility] Start: 02-21-2024 Screening for malign ant neoplasm of breast Mammogram [facility] Start: 11-17-2023 End: 11-17-2023 Patient encounter procedure 11/17/2023 10:00 AM EST Office Visit [facility] [address] [place] [id number] Devan May MD [address] [facility] [address] [place] [address] [facility] Start: 07-28-2023 End: 07-28-2024 MR Brain WO and W contrast IV MR brain w and wo contrast Imaging Routine New onset of headaches after age 50 Expected: 07/28/2023, Expires: 07/28/2024 [facility] Work Phone: Comment on above: Expected: 07/28/2023 , Expires: 07/28/2024 Start: 07-28-2023 End: 07-28-2024 XR Cervical spine 4 or 5 Views [facility] Comment on above: Expected: 07/28/2023 , Expires: 07/28/2024 Once for 1 Occurrenc es starting 07/28/2023 until 07/28/2023 Start: 07-21-2023 Egd transoral biopsy single/multiple EGD BIOPSY SINGLE/MULTIPLE [facility] Start: 07-21-2023 Patient discharge [facility] Start: 07-14-2023 Patient referral [facility] Work Phone: Start: 05-12-2023 Influenza vaccination Influenza Vacc ine (#1) [facility] Start: 01-27-2023 Anesthesia major ves sels neck simple ligation ANESTH NECK VESSEL SURGERY [facility] Start: 01-27-2023 Ligation/biopsy temp oral artery TEMPORAL ARTERY PROCEDURE [facility] Start: 01-27-2023 Patient discharge [facility] Start: 12-10-2022 Mammography MAMMOGRAM [facility] Start: 12-02-2022 Anesthesia intraperitoneal lower abd w/laps nos ANESTH SURG LOWER ABDOMEN [facility] Start: 12-02-2022 Laparoscopy surg rpr initial inguinal hernia LAP ING HERNIA REPAIR INIT [facility] Start: 12-02-2022 RPR AA HRN 1ST < 3 CM RDC RPR AA HRN 1ST < 3 CM RDC [facility] Start: 12-02-2022 Patient discharge [facility] Start: 07-25-2022 LIPID SCREEN LIPID SCREEN [facility] Start: 07-10-2022 Lipid panel Lipid Panel [facility] Start: 05-12-2022 Influenza vaccination [facility] Start: 03-30-2022 Adult depression screening assessment DEPRESSION SCREENING [facility] Start: 12-16-2021 Patient referral [facility] Work Phone: Start: 11-30-2021 Mammography MAMMOGRAM [facility] Start: 09-11-2021 ADVANCE DIRECTIVE DISCUSSION ADVANCE DIRECTIVE DISCUSSION [facility] Start: 05-12-2021 Influenza vaccination INFLUENZA (#1) [facility] Start: 02-28-2021 Colonoscopy COLONOSCOPY [facility] Start: 02-28-2021 COLORECTAL CANCER SCREENING COLORECTAL CANCER SCREENING [facility] Start: 08-28-2019 LIPID SCREEN LIPID SCREEN [facility] Start: 07-25-2018 End: 07-27-2017 *Hepatic Function Panel *Hepatic Function Panel [employer] Work Phone: Start: 07-25-2018 End: 07-27-2017 Lipid panel [AGGREGATE] *Lipid Profile CC PCP [facility] Work Phone: Start: 01-25-2018 End: 01-25-2018 Appointment Appointment [facility] Work Phone: Start: 07-27-2017 End: 07-27-2017 Appointment Appointment [facility] Work Phone: Start: 07-27-2017 End: 07-27-2017 SLEEVE PRESSER OPERATOR SLEEVE PRESSER OPERATOR [facility] Work Phone: Start: 07-27-2017 End: 07-27-2017 Follow Up Appt 6 months Follow Up Appt 6 months [facility] Work Phone: Start: 07-10-2017 End: 07-25-2017 *Hepatic Function Panel *Hepatic Function Panel [facility] Work Phone: Start: 07-10-2017 End: 07-25-2017 Lipid panel [AGGREGATE] *Lipid Profile CC PCP [facility] Work Phone: Start: 04-04-2017 End: 07-10-2017 *Hepatic Function Panel *Hepatic Function Panel [facility] Work Phone: Start: 04-04-2017 End: 07-10-2017 Lipid panel [AGGREGATE] *Lipid Profile CC PCP [facility] Work Phone: Start: 10-02-2016 Pneumococcal Vaccine : 65+ Years (2 - PPSV23 or PCV20) Pneumococcal Vaccine: 65+ Years (2 - PPSV23 or PCV20) [facility] Start: 10-02-2016 Pneumococcal Vaccine : 65+ Years (2 of 2 - PPSV23 or PCV20) Pneumococcal Vaccine: 65+ Years (2 of 2 - PPSV23 or PCV20) [facility] Start: 10-02-2016 PNEUMOCOCCAL: 65+ (2 - PPSV23 or PCV20) PNEUMOCOCCAL: 65+ (2 - PPSV23 or PCV20) [facility] Start: 06-14-2016 End: 06-14-2016 Follow Up Appt 6 months Follow Up Appt 6 months [facility] Work Phone: Start: 06-14-2016 End: 06-14-2016 MMM MMM [facility] Work Phone: Start: 06-08-2016 End: 11-30-2016 Ecg routine ecg w/least 12 lds w/i&r EKG (In office) [facility] Work Phone: Start: 05-25-2016 End: 06-08-2016 Follow Up Appt Other Follow Up Appt Other [employer] [facility] Work Phone: Start: 05-25-2016 End: 05-26-2016 Radiologic examination tibia & fibula 2 views X-Ray, Tibia & Fibula [facility] Work Phone: Start: 01-14-2016 End: 01-15-2016 Urine culture, bacteria *CUUR - Culture, Urine ([place] Count) [facility] Work Phone: Start: 01-12-2016 End: 01-14-2016 Urinalysis complete panel - Urine *UAC- Urinalysis, Complete w/ Micro [facility] Work Phone: Start: 12-09-2015 End: 03-17-2016 *Hepatic Function Panel *Hepatic Function Panel [facility] Work Phone: Start: 12-09-2015 End: 12-09-2015 SLEEVE PRESSER OPERATOR SLEEVE PRESSER OPERATOR [facility] Work Phone: Start: 12-09-2015 End: 12-21-2015 Ecg routine ecg w/least 12 lds w/i&r EKG (In office) [facility] Work Phone: Start: 12-09-2015 End: 12-09-2015 Follow Up Appt 6 months Follow Up Appt 6 months [facility] Work Phone: Start: 12-09-2015 End: 03-17-2016 Lipid panel [AGGREGATE] *Lipid Profile CC PCP [facility] Work Phone: Start: 12-09-2015 End: 12-09-2015 Nuclear stress test -exercise Nuclear stress test -exercise [facility] Work Phone: Start: 06-12-2015 End: 06-12-2015 Follow Up Appt 6 months Follow Up Appt 6 months [facility] Work Phone: Start: 06-12-2015 End: 06-12-2015 MMM MMM [facility] Work Phone: Start: 06-12-2015 End: 06-15-2015 Thyroid stimulating hormone (TSH) *TSH [facility] Work Phone: Start: 06-12-2015 End: 06-15-2015 Thyroxine (T4) *T4 (Total) [facility] Work Phone: Start: 12-18-2014 End: 12-18-2014 SLEEVE PRESSER OPERATOR SLEEVE PRESSER OPERATOR [facility] Work Phone: Start: 12-18-2014 End: 12-18-2014 Follow Up Appt 6 months Follow Up Appt 6 months [facility] Work Phone: Start: 2014 PNEUMOVAX AGE 65 AND OVER WITH 5YR LOOKBACK (#1) PNEUMOVAX AGE 65 AND OVER WITH 5YR LOOKBACK (#1) [facility] Start: 10-31-2013 End: 10-31-2013 SLEEVE PRESSER OPERATOR SLEEVE PRESSER OPERATOR [facility] Work Phone: Start: 10-31-2013 End: 10-31-2013 Follow Up Appt 6 months Follow Up Appt 6 months [facility] Work Phone: Start: 04-30-2013 End: 04-30-2013 SLEEVE PRESSER OPERATOR SLEEVE PRESSER OPERATOR [facility] Work Phone: Start: 04-30-2013 End: 04-30-2013 Follow Up Appt 6 months Follow Up Appt 6 months [facility] Work Phone: Start: 10-29-2012 End: 10-29-2012 Follow Up Appt 6 months Follow Up Appt 6 months [facility] Work Phone: Start: 10-29-2012 End: 10-29-2012 Nuclear stress test -exercise Nuclear stress test -exercise [facility] Work Phone: Start: 08-01-2012 End: 08-01-2012 Follow Up Appt 6 months Follow Up Appt 6 months [facility] Work Phone: Start: 12-07-2011 End: 12-07-2011 Follow Up Appt 6 months Follow Up Appt 6 months [facility] Work Phone: Start: 10-24-2011 SHINGRIX VACCINE (2 of 3) MEZA GRIX VACCINE (2 of 3) [facility] Start: 10-24-2011 Zoster Vaccines (2 of 3) Zoste r Vaccines (2 of 3) [facility] Start: 2009 RSV Immunization age d 60 or older (1 - 1-dose 60+ series) RSV Immunization aged 60 or older (1 - 1-dose 60+ series) [facility] Start: 1994 COLOGUARD (FIT-DNA) COLOGUARD (FIT-D NA) [facility] Start: [address] COLONOGRAPHY [facility] Start: 1994 FECAL OCCULT BLOOD FECAL OCCULT BLOO D [facility] Start: 1994 SIGMOIDOSCOPY SIGMOIDOSCOPY [facility] Start: 1967 ANNUAL PCP TEAM HOME THERAPY CLINICIAN MICHELA DISEASE VISIT ANNUAL PCP TEAM CHRONIC DISEASE VISIT [facility] Start: 1967 Diabetes mellitus screening Diabetes Screening [facility] Start: 1967 Hepatitis C screening Hepatitis C Sc reening [facility] Start: 1961 Depression Screening Depression Scre ening [facility] Start: 1954 COVID-19 VACCINE (#1) COVID-19 VACCI NE (#1) [facility] Start: 1954 COVID-19 VACCINE (1) COVID-19 VACCIN E (1) [facility] Start: [birth year]26[birth year]1950 COVID-19 VACCINE (#1) COVID-19 VACCI NE (#1) [facility] Start: 1949 Medicare Annual Well ness (AWV) Medicare Annual Wellness (AWV) [facility] Start: 1949 Screening for malign ant neoplasm of colon [facility] Start: 1949 Screening for osteoporosis Bone Density Scan [facility] Start: 1949 Thyroid stimulating hormone measurement TSH Level [facility] End: 09-05-2023 MR Brain WO and W contrast IV [facility] [employer] Work Phone: Comment on above: Once for 1 Occurrenc es starting 09/05/2023 until 09/05/2023 OUTSIDE PROCEDURE SCAN OUTSIDE P ROCEDURE SCAN Procedures Ordered: 08/31/2023 [facility] Comment on above: Ordered: 08/31/2023 PAP FLUID CERVICAL SCREENING PAP FLUID CERVICAL SCREENING Lab Routine Pap smear of cervix with ASCUS, cannot exclude HGSIL Encounter for gynecological examination (general) (routine) without abnormal findings Pap smear for cervical cancer screening Ordered: 02/16/2022 [facility] Work Phone: Comment on above: Ordered: 02/16/2022 Patient Education [facility] Work Phone: Patient referral [facility] Work Phone: End: 01-05-2023 Screening mammography bi 2-view breast inc cad TOO SCREENING Radiology Routine Encounter for screening mammogram for malignant neoplasm of breast 1 Occurrences starting 12/07/2021 until 01/05/2023 [facility] Work Phone: Comment on above: 1 Occurrences starti ng 12/07/2021 until 01/05/2023 End: 06-02-2023 XR KNEE GENERAL 4V AP BOTH/PA BOTH/LAT/MERC LEFT XR KNEE GENERAL 4V AP BOTH/PA BOTH/LAT/MERC LEFT Radiology Routine Left knee pain, unspecified chronicity 1 Occurrences starting 05/03/2022 until 06/02/2023 [facility] Work Phone: Comment on above: 1 Occurrences starti ng 05/03/2022 until 06/02/2023 [facility] Immunizations Immunization Date Immunization Notes Care Provider Fa sriram 08-22-2022 influenza virus vaccine, unspecified formulation Devan May MD Work Phone: [facility] 03-14-2018 diphtheria, tetanus toxoids and acellular pertussis vaccine, unspecified formulation; Translations: [Boostrix Tdap (diphth,pertus(acell),t etanus) 2.5 Lf unit-8 mcg-5 Lf/0.5 mL] Alex Back MD Work Phone: [facility] Work Phone: 03-14-2018 tetanus toxoid, redu pool diphtheria toxoid, and acellular pertussis vaccine, adsorbed Alex Back MD Work Phone: [facility] Work Phone: 06-09-2016 influenza, injectabl e, quadrivalent, preservative free Dr. Agata Maradiaga Work Phone: [facility] 06-09-2016 influenza, seasonal, injectable Dr. Agata Maradiaga Work Phone: [facility] 06-09-2016 influenza, seasonal, injectable, preservative free Alex Back MD Work Phone: [facility] Work Phone: 10-02-2015 influenza, injectabl e, quadrivalent, preservative free Alex Back MD Work Phone: [facility] 10-02-2015 pneumococcal conjuga te vaccine, 13 valent Alex Back MD Work Phone: [facility] 07-01-2014 influenza, seasonal, injectable Alex Back MD Work Phone: [facility] 09-20-2013 influenza virus vaccine, unspecified formulation Alex Back MD Work Phone: [facility] 07-06-2012 influenza virus vaccine, unspecified formulation Alex Back MD Work Phone: [facility] 08-29-2011 zoster vaccine, live Alex Back MD Work Phone: [facility] Work Phone: 02-22-2011 tetanus toxoid, redu pool diphtheria toxoid, and acellular pertussis vaccine, adsorbed Alex Back MD Work Phone: [facility] 07-15-2009 novel [id number], preservative-free, injectable Alex Back MD Work Phone: [facility] Work Phone: Payers Date Payer Category Payer Self-pay [id number] 2019 Unknown MMO MMO MEDICARE SUPPLEMENT [id number] 2019-Present [phone] [address] [place] [address] Indemnity [id number] 2019 Unknown [id number] 2019 Unknown [id number] 2014 Medicare MEDICARE MEDICAR E A AND B [id number] 2014-Present [phone] [address] [address] [place] [address] Medicare [id number] 2014 Medicare [id number] 2014 Medicare [id number] Medicare [id number] Private Health Insurance [id number] Unknown [id number] Unknown [id number] Unknown [id number] Unknown [id number] Unknown [id number] Social History Date Type Detail Facility Start: 12-18-2018 End: 07-28-2023 Tobacco smoking status CAIS Never smoked tobacco [facility] Start: 04-06-2021 End: 02-16-2022 Alcohol intake Current non-drinker of alcohol (finding) [facility] Start: 1950 Sex Assigned At Female [facility] Start: 11-26-2021 End: 05-04-2022 Exposure to SARS-CoV-2 (event) Not sure [facility] Start: 12-16-2021 End: 07-20-2023 Tobacco smoking status CAIS Unknown if ever smoked [facility] Start: 10-31-2011 End: 07-28-2023 Tobacco use and exposure Smokeless tobacco non-user [facility] Start: 05-11-2018 None [facility] Start: 05-11-2018 Spouse/ Signif icant Other [facility] Start: 05-11-2018 Non-smoker [facility] Start: 07-28-2023 Alcohol intake Lifetime non-d wojciech (finding) [facility] Start: 1950 Sex Assigned At Not on file [facility] Start: 07-28-2023 Gender identity Not on file [facility] Start: 07-28-2023 History of Social function [facility] NEGATED: Highlighted row [facility] Medical Equipment Procedure Code Equipment Code Equipment Origin al Text Equipment Identifier Dates Biopsy, artery, temporal Ligation clip, metallic [id number] FDA Start: 01-27-2023 Shell Actb 54mm Prim Sb Hmsphr - [id number] Start: 02-09-2015 Comment on above: Description: Hemisph erical Solid Back Shell Head Fem 32mm V4 0 Blx D - [id number] Start: 02-09-2015 Comment on above: Description: Ceramic V40 Femoral Head Shell Actb 54mm Prim Sb Hmsphr - [id number] Start: 05-13-2015 Comment on above: Description: TRITANI UM HEMISPHERICAL SOLID BACK SHELL 54MM E Head Fem 32mm V4 0 Blx D - [id number] Start: 05-13-2015 Comment on above: Description: BIOLOX DELTA CERAMIC V40 FEMORAL HEAD Ins Actb 32mm 0d E Hip X3 - [id number] Start: 02-09-2015 Comment on above: Description: 0* Poly ethylene Insert Fem Stem Acclde 2 Sz 4 127 Deg - [id number] Start: 02-09-2015 Comment on above: Description: 127* Ne ck Angle Hip Stem Ins Actb 32mm 0d E Hip X3 - [id number] Start: 05-13-2015 Comment on above: Description: TRIDENT X3 0 DEGREE POLYETHYLENE INSERT 32MM E Fem Stem Acclde 2 Sz 4 127 Deg - [id number] Start: 05-13-2015 Comment on above: Description: ACCOLAD E ll 127 DEGREE NECK ANGLE HIP STEM ([id number]) Extra-gynaecolog ic al surgical mesh, synthetic polymer, non-bioabsorbable ()[id number] FDA Start: 12-02-2022 Endoscopic manua l linear stapler ()[id number] FDA Start: 12-02-2022 Ligation clip, synthetic polymer, non-bioabsorbable ()[id number] FDA Start: 12-02-2022 Goals Date Patient Goal Desired Activity /State Functional Status Date Assessment Result Facility 12-02-2022 Functional status Ambulates;Bathroom Priv ilege [facility] Work Phone: Mental Status Date Assessment Result Facility 07-21-2023 Cognitive function Voice/Name [facility] Work Phone: 01-27-2023 Cognitive function Voice/Name [facility] Work Phone: 12-02-2022 Cognitive function Level Of Cons ciousness Awake;Alert;Appropriate;Follow s Commands [facility] Work Phone: 12-02-2022 Cognitive function Voice/Name [facility] Work Phone: Clinical Notes 09-28-2001 to 10-05-2023 Note Date & Type Note Facility 10-05-2023 Discharge summary Note Date/Time October 05, 2023 3:55pm [facility] [address] [place] [address] [address] [place] [address] / REHABILITATION SERVICES DISCHARGE SUMMARY MR#: [id number] Acct: [id number] Name: EEMLYN KRAMER Rep #: [id number] : 1950 73 From: Jennifer Pastor DPT, OCS, CSCS Referring Dr.: Dr. Devan May MD Status: REG RCR Insurance: MEDICARE PART A B [facility] Discharge Summary D/C summary: It has been my pleasure to treat EMELYN KRAMER referred by Dr. Devan May MD, with the diagnosis of cervico occiptial neuralgia for a total of 9 visit(s). Discharge Date: 10/05/23 Please see the following information for a summary of their discharge status. Subjective Subjective: Patient reports she stopped taking her medication, states it was making her crazier than she already is. Pain FRANCO: Pain Intensity (Out of 10): 0 Neck apin: Pain Intensity (Out of 10): 0 Objective Objective/Function: Able to resume horz abd, did need some cueing with Bilat ER to relax shoulder with better tech following. UT tightness L> R. Patient states she needs a total shoulder replacement to her Left shoulder but unable to have it d/t being sick and managing his appts. Goals Goal 1:: 40 degrees B cervical rotation without pain Goal 2:: Neck pain abolished and FRANCO 75% better overall Goal 3:: Patient I in management of condition Goal 4:: Sit with appropriate upright posture without cues. Goal 5:: 5 or better quickdash Plan Plan: Pt called and FRANCO are gone and is doing really well. Cancelled last visitsdue to 's health. Does not feel like she needs to return. D/C Information d/c sentence: If there are questions or concerns regarding this patient's physical therapy, please feel free to call me at [phone]. Thank you for the referral of thispatient. Sincerely, Jennifer Pastor, DPT, OCS, CSCS Balance/Gait/Functional tests Balance/Special Test Scores Oswestry Neck Score: 14 <Electronically signed by Jennifer Pastor DPT, OCS, CSCS> 10/05/23 [id number] CC: Dr. Devan May MD; Dr. Agata Maradiaga, DO ~ EBG Signed [facility] Work Phone: 1(728) 575-342212-28-2023 Telephone encounter Note* Telephone Encounter - JANY Mendoza CNP - 09/07/2023 1:59 PM EST I spoke with pt. We discussed results of MRI brain. Med list shows she is taking Plavix daily. She states she is also taking ASA She says she feels much better since being off Amitriptyline. Scheduled for follow up in November [facility] [employer] Work Phone: [phone]) 734-576112-28-2023 Miscellaneous Notes* Telephone Encounter - JANY Mendoza CNP - 09/07/2023 1:59 PM EST I spoke with pt. We discussed results of MRI brain. Med list shows she is taking Plavix daily. She states she is also taking ASA She says she feels much better since being off Amitriptyline. Scheduled for follow up in November * Telephone Encounter - Sarah Piper - 09/07/2023 8:51 AM EST Name of caller: Emelyn Contact phone number: [phone] Relationship to Patient: patient Provider: Dr. May Practice: [facility] Neurology Avelina Chief Complaint/Reason for Call: Pt states that she would like to receive a cb to discuss her MRI results. Please advise. Best time of day caller can be reached:Any Patient advised that office/PCP has 24-48 business hours to return their call: No documented in this [id number] Telephone encounter Note* Telephone Encounter - Sarah Piper - 09/07/2023 8:51 AM EST Name of caller: Emelyn Contact phone number: [phone] Relationship to Patient: patient Provider: Dr. May Practice: [facility] Nayla Quan Chief Complaint/Reason for Call: Pt states that she would like to receive a cb to discuss her MRI results. Please advise. Best time of day caller can be reached:Any Patient advised that office/PCP has 24-48 business hours to return their call: No [id number] Discharge summary Author Jennifer Pastor [facility] August 07, 2023 2:04pm Note Date/Time August 07, 2023 2:05pm [facility] [address] [place] [address]. [address] [place] [address] / REHABILITATION SERVICES DISCHARGE SUMMARY MR#: [id number] Acct: [id number] Name: EMELYN KRAMER Rep #: [id number] : 1950 73 From: Jennifer Pastor DPT, SHAKIRA, CSCS Referring Dr.: Dr. Devan May MD Status: REG RCR Insurance: MEDICARE PART A B [facility] Discharge Summary D/C summary: It has been my pleasure to treat EMELYN RKAMER referred by Dr. Devan May MD, with the diagnosis of cervico occiptial neuralgia for a total of 1 visit(s). Discharge Date: Please see the following information for a summary of their discharge status. Pain FRANCO: Pain Intensity (Out of 10): 0 Neck apin: Pain Intensity (Out of 10): 1 Goals Goal 1:: 40 degrees B cervical rotation without pain Goal 2:: Neck pain abolished and FRANCO 75% better overall Goal 3:: Patient I in management of condition Goal 4:: Sit with appropriate upright posture without cues. Goal 5:: 5 or better quickdash Plan Plan: 2x/week for 4 weeks for 1. MH to neck, STM to R UT and neck, manual traction and PROM focussing R rotation and extension/retraction to neck. 2. strength posture and neck when improved. postural focus D/C Information d/c sentence: If there are questions or concerns regarding this patient's physical therapy, please feel free to call me at [phone]. Thank you for the referral of thispatient. Sincerely, Jennifer Pastor, MARTHA, SHAKIRA, CSCS Balance/Gait/Functional tests Balance/Special Test Scores Oswestry Neck Score: 14 <Electronically signed by Jennifer Pastor DPT, SHAKIRA, CSCS> 08/07/23 1404 CC: Dr. Devan May MD; Dr. Agata Maradiaga, DO ~ EBG Signed [facility] Work Phone: 1([phone] 429-341511-17-2023 History of Present illness Narrative* Devan May MD - 07/28/2023 1:30 PM EST Images from the original note were not included. [facility] [address] [facility] [address] [facility] [address] Dept: [phone] Dept Loc: [phone] Devan May MD Thank you for your kind request for a neurological consultation on this patient. CHIEF COMPLAINT: Chief Complaint Patient presents with New Patient Headache HISTORY OF PRESENT ILLNESS: The patient is a 72 y.o. person who presents with headaches and history of polymyalgia rheumatica. She reports that she got Reclast in December and immediately got right temporal area. She reports that she has had a workup in the [place] area. Unfortunately, I do not have the records for that nor do [facility] aaccess to those records. She reports that because of her prior history of PMR that she had a temporal artery biopsy that was negative. She reports that prior to the temporal artery biopsy, she did have labs that she was told were c/w temporal arteritis. I do not have access to those results. She reports that she was having the headaches every AM. She reoprts that they are now 16-20 days per month. Right orbit, right temporal and righe occipital. Aching. Is the FRANCO longer than four hours? No (Migraine) Photophobia? Yes screens. (Migraine) Phonophobia? Yes (Migraine) Nausea/Vomiting? No (Migraine) Exacerbated by Movement? No She was getting diplopia initially but that stopped in February (2 months of it) Off balance. (Hemicrania Continua) Autonomic Features (at least 1 of below)? (1) conjunctival injection? No (2) lacrimation? No (3) nasal congestion? No (4) rhinorrhea? No (5) ptosis? No (6) eyelid edema? No (New Daily Persistent FRANCO) Clear Onset of FRANCO Syndrome? No Persistent for >3 months? No Distinct starting point? No No prior FRANCO history? Yes (Tension-Type FRANCO) Mild-Moderate, Featureless? No >10 attacks per month? 30 min-7days? Bilateral? Pressing/tightening? Is the FRANCO less than four hours? Yes, but takes tramadol. Autonomic Features? No Cluster Headache (1 or more)? No 15 min to 180 min? No Ipsilateral conjunctival injection? No Ipsilateral Lacrimation? No Ipsilateral nasal congestion? No Ipsilateral Rhinorrhea? No Ipsilateral forehead and facial sweating? No Ipsilateral Miosis? No Ipsilateral Ptosis? No eyelid edema? No Paroxysmal Hemicrania (1 or more ipsilateral)? No (1) 2 min-30 min? No (2) conjunctival injection? No (3) lacrimation? No (4) nasal congestion? No (5) rhinorrhea? No (6) eyelid edema? No Short-lasting Unilateral Neuralgiform FRANCO with Conjunctival Injection and Tearing? (1) 1 sec-600 s? No (2) conjunctival injection? No (3) lacrimation? No (4) nasal congestion? No (5) rhinorrhea? No (6) eyelid edema? No Hypnic FRANCO? Only during sleep and causing awakening? No > 10 days per month? No > 3 months? No Age over 50? No Primary Cough FRANCO? > 2 attacks? No Precipitated by coughing or other Valsalva maneuver? No 1 sec-2 hours? No Secondary cause ruled out? No Primary Exercise FRANCO? > 2 attacks? No Precipitated by strenuous exercise? No Secondary cause ruled out? No Secondary causes of FRANCO? Systemic Symptoms (mets, GCA, infection)? Fever? Sweats/Chills? Weight Loss? Secondary Diseases? HIV? Cancer? Chronic Infection? Chronic Immunosuppression? Neurological Symtoms and Signs (mass/structural lesion, stroke, hydrocephalus) Confusion? Focal neurological signs/symptoms? Diplopia? Transient visual obscurations? Pulsatile tinnitus? Onset: (RCVS, stroke, SAH, CVST, dissection, pituitary apoplexy, intracranial hypertension) Thunderclap? Older Age (mass, GCA) New onset after age 50? Progressive after age 50? Positional (CSF leak, mass, CVST, Sinusitis) Orthostatic? Recumbent? Worsens with change in position? Prior history (mass, infection)? / (CVST, eclampsia, RCVS, pituitary lesion, stroke)? Precipitated by valsalva (mass, Chiari)?No Cough? Sneeze? Bending? Straining? She has pain in her upper neck. Stays in that area. Turning her head to the right makes it worse. Heat/ice helps. She has not had x-rays. She is having frequent migraines despite gabapentin, occipital nerve blocks, and venlafaxine. She reports that she had migraines when she was young. She has history of clenching/grinding and had to have a bite guard. Past Medical History: has a past medical history of Hypothyroid, Sleep apnea, and Sudden adrenal gland insufficiency (HCC). Past Surgical History: has a past surgical history that includes Cardiac surgery; Knee surgery (Bilateral); Hip surgery (Bilateral); Hand surgery (Bilateral); Hernia repair; and Neck surgery. Medications: Current Outpatient Medications: Ascorbic Acid (VITAMIN C ER PO), Take by mouth., Disp: , Rfl: Calcium Carbonate-Vitamin D (CALCIUM 600+D PO), Take by mouth., Disp: , Rfl: Cetirizine HCl (ZYRTEC ALLERGY PO), Take by mouth., Disp: , Rfl: clopidogrel (Plavix) 75 MG tablet, , Disp: , Rfl: D-MANNOSE PO, Take by mouth., Disp: , Rfl: fluticasone (Flonase) 50 MCG/ACT nasal spray, , Disp: , Rfl: gabapentin (Neurontin) 300 MG capsule, , Disp: , Rfl: levothyroxine (Synthroid) 137 MCG tablet, Take 1 tablet by mouth daily., Disp: , Rfl: lisinopril 5 MG tablet, Take 1 tablet by mouth daily., Disp: , Rfl: metoprolol succinate XL (Toprol-XL) 25 MG 24 hr tablet, , Disp: , Rfl: omeprazole (PriLOSEC) [address] capsule, Take 40 mg by mouth in the morning., Disp: , Rfl: predniSONE (Deltasone) 1 MG tablet, , Disp: , Rfl: Probiotic Product (PROBIOTIC-10 PO), Take by mouth., Disp: , Rfl: temazepam (Restoril) 15 MG capsule, , Disp: , Rfl: traMADol (Ultram) 50 MG tablet, Take 1 tablet by mouth in the morning and 1 tablet in the evening.,Disp: , Rfl: venlafaxine (Effexor) 37.5 MG tablet, Take 1 tablet by mouth daily., Disp: , Rfl: amitriptyline (Elavil) 25 MG tablet, Take half a tab po qpm suppertime for 7 days, then a full tab po QPM suppertime for 7 days, then two tabs po QPM suppertime thereafter, Disp: 30 tablet, Rfl: 2 SUMAtriptan (Imitrex) 50 MG tablet, Take 1 tablet (50 mg) by mouth Once as needed for migraine. Mayrepeat dose once in 2 hours if no relief. Do not exceed 2 doses in 24 hours., Disp: 9 tablet, Rfl: 5 tiZANidine (Zanaflex) 2 MG tablet, Take 1 tablet (2 mg) by mouth every 8 hours as needed for musclespasms., Disp: 90 tablet, Rfl: 3 Allergies: Wound dressings and Flexeril [cyclobenzaprine] Social History: Social History Socioeconomic History Marital status: Spouse name: Not on file Number of children: Not on file Years of education: Not on file Highest education level: Not on file Occupational History Not on file Tobacco Use Smoking status: Never Smokeless tobacco: Never Substance and Sexual Activity Alcohol use: Never Drug use: Never Sexual activity: Not on file Other Topics Concern Not on file Social History Narrative Not on file Social Determinants of Health Financial Resource Strain: Not on file Food Insecurity: Not on file Transportation Needs: Not on file Physical Activity: Not on file Stress: Not on file Social Connections: Not on file Intimate Partner Violence: Not on file Housing Stability: Not on file Family History: Family History Problem Relation Name Age of Onset Heart disease Mother No Known Problems Father Breast cancer Sister Hypothyroidism Sister Heart attack Sister Hypothyroidism Sister Heart attack Brother Hypothyroidism Brother Hypothyroidism Brother No Known Problems Maternal Grandmother Heart attack Maternal Grandfather No Known Problems Paternal Grandmother No Known Problems Paternal Grandfather No Known Problems Daughter No Known Problems Daughter No Known Problems Son REVIEW OF SYSTEMS: Review of Systems Constitutional: Negative for appetite change, chills, diaphoresis, fever and unexpected weight change. HENT: Negative for dental problem and mouth sores. Eyes: Negative for discharge and itching. Respiratory: Negative for chest tightness. Cardiovascular: Negative for chest pain and leg swelling. Gastrointestinal: Negative for rectal pain and vomiting. Endocrine: Negative for polydipsia, polyphagia and polyuria. Genitourinary: Negative for decreased urine volume, flank pain and genital sores. Musculoskeletal: Negative for arthralgias. Skin: Negative for color change. Allergic/Immunologic: Negative for food allergies and immunocompromised state. Neurological: Positive for headaches. Hematological: Negative for adenopathy. Does not bruise/bleed easily. Psychiatric/Behavioral: Negative for agitation, behavioral problems, decreased concentration, sleepdisturbance and suicidal ideas. PHYSICAL EXAM: Vitals: BP 135/67 (BP Location: Right arm, Patient Position: Sitting, BP Cuff Size: Adult) Pulse 79 Ht 5' 5 (1.651 m) Wt 186 lb 10.1 oz (84.7 kg) BMI 31.06 kg/m General Appearance: Patient is in no apparent distress. Head is normocephalic, atraumatic Cardiovascular: Regular rate and rhythm. No heart murmurs. No carotid bruit Neurologic: Mentation: Alert and oriented x 3 [address] person, place and time. Speech and Language: Speech and language normal Concentration and Attention: Concentration normal Memory: Memory normal Fund of Knowledge: Fund of knowledge normal Cranial Nerves: II, III, IV, V, , VII, VIII, IX, X, XI, XII tested and were intact including fundoscopic exam (optic discs) and visual field to confrontation. Motor: Strength:Strength 5 out of 5 with normal tone Alternating Movements: Normal Cogwheel Rigidity: None Tone: Tone is normal Tremor / Involuntary Movements: None Deep Tendon Reflexes: 1 out of 4 symmetrical in all four limbs. Sensory: Normal sensation upper and lower extremities Coordination: Normal coordination upper and lower extremities Gait and Station: Station is normal. Gait is normal DATA CBC: No results found for: WBC, RBC, HGB, HCT, MCV, MCH, MCHC, RDW, PLT, MPV CMP: No results found for: NA, K, CL, CO2, BUN, CREATININE, AGRATIO, LABGLOM, GLUCOSE, GLU, PROT, CALCIUM, BILITOT, ALKPHOS, AST, ALT BMP: No results found for: NA, K, CL, CO2, BUN, CREATININE, CALCIUM, LABGLOM, GLUCOSE, GLU PT/INR: No results found for: PROTIME, INR PTT: No results found for: APTT, PTT[APTT} FLP: No results found for: CHLPL, TRIG, HDL, LDLCALC, LDLDIRECT TSH: No results found for: TSH VITAMIN B12: No results found for: [id number] FERRITIN: No results found for: FERRITIN ---- No results found for: PHENYTOIN, PHENOBARB, VALPROATE, CBMZ No components found for: TOPIRANo results found for: OXCARBAZE, OXCARB @LASTAPPOINTMENTTHISPROV@ No image results found. @RESULTINGLABINFO@ No results found for: LEVETIRACETA, FERRITIN, CRP, NAFISA, ANCA No results found for: EDWARD, IMMUNOGLOBUL, OLIGOBANDS No results found for: OCD24IX, HEPCAB No results found for: CRP, ANATITER, ANCA ASSESSMENT AND PLAN: Diagnosis Plan 1. New onset of headaches after age 50 MR brain w and wo contrast amitriptyline (Elavil) 25 MG tablet SUMAtriptan (Imitrex) 50 MG tablet 2. Cervico-occipital neuralgia XR cervical spine complete 4 to 5 views External referral to Physical Therapy tiZANidine (Zanaflex) 2 MG tablet I am concerned about this patient having new onset headache in a patient over 50 with vision loss and vertigo and MRI brain with and without for tumor is required in this situation. Xrays of the neck and tizanidine prn. PT. I spent 30 minutes caring for this patient today, reviewing labs and records, seeing the patient, documenting in the record and arranging for studies. documented in this [facility]11-10-2023 History and physical note Author Martin Ochoa [facility] July 21, 2023 5:59am Note Date/Time July 21, 2023 5:58am [facility] Medical Records Department [address] [place] [address] History & Physical Exam 07/21/23 0557 MR#: [id number] Acct: [id number] Name: EMELYN KRAMER Rep #:[id number] : 1950 72 From: Martin Ochoa MD PCP: Dr. Agata Maradiaga, DO Status:[facility] Location: [place] [address] History and Physical Date of Admission: 07/21/23 Visit Reasons: SELF REFERRED DIFFICULY SWALLOWING Chief Complaint: difficulty swallowoing Is patient in pain?: No Allergies adhesive tape Allergy (Verified 06/26/23 09:10) Rashpravastatin [From Pravachol] Allergy (Verified 06/26/23 09:10) MUSCLE PAINcyclobenzaprine [From Flexeril] Adverse Reaction (Verified 06/26/23 09:10) EXTREME WEAKNESSNSAIDS (Non-Steroidal Anti-Inflamma Adverse Reaction (Verified 06/26/23 09:10) GI BLEED Medications aspirin 81 mg tablet,delayed release 81 mg PO [facility] 05/31/16 [History Confirmed 06/26/23] fluticasone propionate 50 mcg/actuation nasal spray,suspension 1 spray NASAL QHSnasal lubricant 05/31/16 [History Confirmed 06/26/23] omeprazole 40 mg capsule,delayed release 40 mg PO DAILY GERD 05/31/16 [History Confirmed 06/26/23] venlafaxine 37.5 mg tablet 37.5 mg PO QHS depression 05/31/16 [History Confirmed 06/26/23] calcium carbonate 600 mg-vitamin D3 20 mcg (800 unit) tablet 2 tab PO DAILY@1500supplement 05/11/18 [History Confirmed 06/26/23] nitroglycerin 0.4 mg sublingual tablet 0.4 mg sublingual PRN PRN CHEST PAIN 07/24/18 [History Confirmed 06/26/23] clopidogrel 75 mg tablet 75 mg PO DAILY heart health #90 tabs 03/23/20 [Rx Confirmed 06/26/23] metoprolol succinate 25 mg tablet,extended release 24 hr 25 mg PO DAILY 04/16/21[History Confirmed 06/26/23] tramadol 50 mg tablet 50 mg PO BID 04/16/21 [History Confirmed 06/26/23] cetirizine 10 mg capsule 10 mg PO PRN PRN ALLERGIES 04/27/22 [History Confirmed 06/26/23] ascorbate calcium (vitamin C) 500 mg tablet 500 mg PO DAILY 05/10/22 [History Confirmed 06/26/23] levothyroxine 137 mcg tablet 137 mcg PO DAILY #90 tabs 05/10/22 [Rx Confirmed 06/26/23] lisinopril 5 mg tablet 5 mg PO QHS 11/25/22 [History Confirmed 06/26/23] Clear Nails 1 tab PO/SL DAILY 01/25/23 [History Confirmed 06/26/23] Lactobacillus comb no.8-[id number] 300 million cell-250 mg capsule (Probiotic and Acidophilus) 1 cap PO DAILY 01/25/23 [History Confirmed 06/26/23] d-mannose 500 mg capsule 2,100 mg PO DAILY 01/25/23 [History Confirmed 06/26/23] temazepam 15 mg capsule 15 mg PO QHS PRN Sleep 01/25/23 [History Confirmed 06/26/23] gabapentin 100 mg capsule 100 mg PO TID 03/16/23 [History Confirmed 06/26/23] prednisone 20 mg tablet 5 mg PO 05/29/23 [History Confirmed 06/26/23] PFSH Medical History Adrenal insufficiency Anemia Atherosclerosis of [place] coronary artery of [place] heart without angina pectoris 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) Cardiology follow-up encounter Contusion of left knee COVID-19 CPAP (continuous positive airway pressure) dependence Difficulty swallowing Frequent UTI Gastric reflux History of GI bleed History of pain when walking History of steroid therapy Hyperlipidemia Hypertension Hypothyroidism (acquired) 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 Injury of back Injury of head and neck Left knee pain Leg cramps Migraine headache Myofascitis Non-smoker Obstructive sleep apnea Osteoarthritis Osteoporosis Polymyalgia rheumatica Polymyalgia rheumatica Restless legs Secondary adrenal insufficiency Shortness of breath on exertion Supraventricular tachycardia Syncope Thoracic spondylosis Umbilical hernia Wears glasses Surgical History H/O laminectomy (03/2019) History of bilateral hip replacements History of bilateral knee replacement History of biopsy of temporal artery History of carpal tunnel release History of coronary artery stent placement (12/14/07) History of esophagogastroduodenoscopy (EGD) History of herniorrhaphy History of left heart catheterization (10/02/09) History of radiofrequency ablation procedure for cardiac arrhythmia (09/28/01) Hx of bilateral inguinal hernia repair Hx of colonoscopy Hx of fusion of cervical spine Hx of left cataract extraction Hx of right cataract extraction Hx of right knee surgery Hx of shoulder surgery wound debridement Family History Other Heart disease Thyroid disorder 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 I have most recently assisted her December 02, 2022 with a laparoscopic left inguinal hernia repair and simple umbilical hernia repair. On January 27, 2023 Dr. Shayan Hardy performed a right temporal artery biopsy because of headache. Pathology was negative for temporal arteritis. A previous abdominal CT scan of January 25, 2022 showed a small hiatal hernia at that time. I have personally reviewed those images and concur. She has a remote history of a GI bleed. She has polymyalgia rheumatica. The patient states that for 3 to 4 years she occasionally have some problems with food getting stuck. May be meat may be bread. On a couple occasions she has to induce emesis to dislodge. She thinks remotely she had an upper endoscopy but cannot recall when. No unexpected weight loss. No bright red blood per rectum or melena. No otherwise steroid allergies. 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 She has polymyalgia rheumatica and is typically at this time of year on1 to 2 mg daily. 2007 she had a coronary stent placed and has been on clopidogrel and aspirin ever since. ROS General General: Yes fatigue; No weight change, appetite, colon cancer, breast cancer or weakness HEENT HEENT: No difficulty swallowing, eye injury, eye surgery, swollen glands or hoarseness Endo Endocrine: Yes thyroid disease; No diabetes mellitus, thyroid cancer, Hair loss, heat intolerance or cold intolerance Skin Skin: No rash or changing moles Breast Breast: No left breast lump, right breast lump, nipple discharge, breast pain, abnormal mammogram, abnormal US or breast enlargement Musc Musculoskeletal: No back problems, arthritis, rheumatoid arthritis, gout or joint pain Cardio Cardiovascular: Yes heart disease, high blood pressure and heart stent; No murmur, pacemaker, atrial fibrillation, heart attack, palpitations, shortnessof breat with exertion or chest pain Psych Psychiatric: No depression, anxiety or hearing voices Resp Respiratory: No shortness of breath, Yes sleep apnea, No cough, No COPD, No asthma, No emphysema and No wheezing Gastro Gastrointestinal: No abdominal pain, No nausea or vomiting, No diarrhea, Yes constipation, No blood in stool, No acid reflux, No hemorrhoids, No ulcers, No gallbladder problem and No black,tarry stools Favio Hematologic: Yes blood thinners, No blood disorders, No bleeding, No anemia and No blood clots Neuro Neurologic: No system reviewed and no additional complaints, except as documented, No as per HPI, No abnormal gait, No abnormal hearing, No abnormal movements, No abnormal speech, No behavioral changes, No burning sensations, No confusion, No convulsions, No disequilibrium, No dizziness, No localized weakness, No frequent falls, No headache(s), No lack of coordination, No loss ofvision, No memory loss, No numbness, No other visual disturbances, No radicular pain, No restless legs, No sensory deficit, No syncope, No tingling, No tremor(s), No weakness and No other Exam Const General: cooperative, healthy appearing and comfortable [facility] Head: normal to inspection Eyes General: appearance normal, both eyes and all related structures Neck Neck: normal visual inspection Chest Chest palpation & inspection: normal inspection of the chest Resp Effort & Inspection: normal respiratory effort Cardio Rate: regular rate Rhythm: regular rhythm GI Palpation: soft and no hepatosplenomegaly Musc Cervical Spine: normal cervical lordosis Skin General: no rashes or lesions noted Neuro General: patient alert, patient awake and patient oriented x3 Extrem General: no calf tenderness Psych Appearance: grossly normal Assessment and Plan Assessment and Plan (1) Polymyalgia rheumatica: Status: Acute (2) Esophageal dysphagia: Plan: Etiology of the patient esophageal dysphagia unclear. She is already on low-dose steroids but has been so chronically for polymyalgia rheumatica. She has aknown small hiatal hernia based upon CT. I do recommend to her a contrast upperGI study. I then subsequently recommend to her a esophagogastroduodenoscopy with possible biopsy and if need be dilatation. She has had an opportunity to ask and have questions answered. We will proceed as noted. July 17, 2023 STUDY: AIR CONTRAST ESOPHAGRAM AND UPPER GI SERIES REASON FOR EXAM: Female, 72 years old. R13.10 - Dysphagia, unspecified FLUOROSCOPY TIME (if supplied): (53 seconds) minutes/seconds. 47.2 mGy. 18 images were obtained. TECHNIQUE: SINGLE CONTRAST AND AIR CONTRAST FLUOROSCOPIC IMAGES. COMPARISON: None. FINDINGS: The cervical esophagus demonstrates normal motility without aspiration. There is no stricture or extrinsic mass effect. No intraluminal polypoid mass is identified. The thoracic esophagus distends well without stricture or mucosal fold thickening. No mucosal ulcerations are identified. There is no extrinsic mass effect. There are no diverticula. Questionable small polyp along the left lateral wall of the proximal esophagus. Correlation with ultrasound is recommended. No hiatal hernia or gastroesophageal reflux was identified. The stomach distends well without mucosal fold thickening or mucosal ulceration. There is no intraluminal mass. The duodenal bulb is freely distensible without deformity or ulceration. The duodenal sweep is normal in position and caliber. RAD/Upper GI w/BA Swallow IMPRESSION: Questionable small polyp in the proximal esophagus along the left lateral wall. Endoscopic correlation recommended We plan to pursue a esophagogastroduodenoscopy with possible biopsy or polypectomy today. She is aware of technique, benefit, risks alternatives and findings of the barium swallow. We will proceed as noted. Martin Ochoa M.D., F.A.C.S. 07/21/23 0559 <Electronically signed by Martin Ochoa MD> Cosigner Signature (if applicable): CC: Dr. Agata Maradiaga DO; Dr. Martin Ochoa MD~ Signed [facility] Work Phone: [phone]) 921-318211-10-2023 Procedure [facility] 07-21-2023 Procedure [facility]06-26-2023 NoteHNO ID: [id number] Author: Alex Back MD Service: ? Author Type: Physician Type: Progress Notes Filed: 03/06/2023 12:31 PM Note Text: Emelyn is a 72 year old who presents for an annual gynecologic exam without complaints. denies vaginal bleeding. no new concerns. H/o abnormal paps. Last pap normal. All HGPV for last 17 years neg. Postmenopausal: yes HRT use: No. 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 History Comments: Sexual Activity: Yes; Male Contraception: No contraception data on record PAST MEDICAL HISTORY Diagnosis Date Adrenal insufficiency (HCC) Arthritis, multiple joint involvement ATROPHIC VAGINITIS Coronary atherosclerosis of unspecified type of vessel, [place] or graft 2007 Dr Gonzalez, s/p- stent Degenerative disc disease, cervical Diffuse cystic mastopathy Fibrocystic breast disease Hematuria 2010 benign after evaluation Hyperlipidemia Hypothyroidism Mild dysplasia of cervix 1998 Mitral valve prolapse OSTEOPENIA Other malaise and fatigue PAC (premature atrial contraction) Noted history of PACs Polymyalgia rheumatica (HCC) 1998 atypical, Dr Zuluaga Pure hypercholesterolemia SVT (supraventricular tachycardia) ([facility]) 2005 rarely now since had ablations done (not completely resolved but resolves on own now) Thoracic spondylosis Unspecified sleep apnea cpap Upper GI bleed 2009, 2010 pre-pyloric antrum, mobic discontinued VITAMIN D DEFICIENCY NOS PAST SURGICAL HISTORY Procedure Laterality Date ARTHROSCOPY KNEE DIAGNOSTIC W/WO SYNOVIAL BX SPX 01/2004 Arthroscopy, knee left ARTHRP ACETBLR/PROX FEM PROSTC AGRFT/ALGRFT Right 02/09/2015 Hip replacement, total ARTHRP ACETBLR/PROX FEM PROSTC AGRFT/ALGRFT Left 05/13/2015 Hip replacement, total ARTHRP KNE CONDYLEANDPLATU MEDIALANDLAT COMPARTMENTS 06/2005 Knee replacement, total left ARTHRP KNE CONDYLEANDPLATU MEDIALANDLAT COMPARTMENTS 01/07/2013 Right CARDIAC CATH 09/2009 left CARPAL TUNNEL 2009 right wrist- x2 2020 COLONOSCOP W/ OR W/O BRSH SPEC 02/28/2011 COLONOSCOPY FLX DX W/COLLJ SPEC WHEN PFRMD 10/16/2002 Colonoscopy COLPOSCOPY CERVIX UPPER/ADJACENT VAGINA 02/15/1999 Colposcopy w/ bx EGD TRANSORAL BIOPSY SINGLE/MULTIPLE 11/28/2011 EGD WITH CONTROL OF BLEED, 07/26/2011 EGD WITH CONTROL OF BLEED, 07/26/2011 EP study W/ 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 EP study W/ re-ablation of recuurent SVT 09/2001 ESOPHAGOGASTRODUODENOSCOPY TRANSORAL DIAGNOSTIC 10/20/2009 EGD H-pylori is negative LAPAROSCOPY, SURG REPAIR - HERNIA 11/2022 LIGATION OR BIOPSY, TEMP ARTERY 01/2023 OFFICE LEEP before 2002 PAST SURGICAL HISTORY OF Left 05/2016 wound surgery PTCA/Stent (OMAR) to LAD 12/14/2007 RPR 1ST INGUN HRNA AGE 5 YRS/> REDUCIBLE 03/02/2011 SHOULDER SURGERY HX Right 08/2018 scope FAMILY HISTORY Problem Relation Age of Onset other (Other) Mother MVA AGE 30+ other (Other) Father MVA AGE 30 + Thyroid Sister Ischemic Heart Disease Sister 62 Thyroid Sister Ischemic Heart Disease Brother 50 Thyroid Brother Heart Maternal Grandfather Heart Paternal Grandmother Arthritis Daughter psoriatic arthritis Alzheimer's Disease Maternal Aunt Cancer Maternal Aunt liposarcoma SOCIAL HISTORY Social History Tobacco Use Smoking status: Never Smokeless tobacco: Never Vaping Use Vaping Use: Never used Substance Use Topics Alcohol use: No Drug use: No EXAM: BP 122/76 Ht 5' 3 (1.60m) Wt 179 lb (81.2kg) LMP 09/11/2003 BMI 31.72 kg/(m2). GENERAL: pleasant, female in no apparent distress HEENT: Normocephalic, atraumatic, mucus membranes moist, and no lesions NECK: Supple, full range of motion, no adenopathy, and thyroid normal DERMATOLOGY: Normal, without lesions, non-icteric, and non-hirsute BREAST: soft, non-tender, symmetric, no dominant mass, normal nipple-areolar complex, no lymphadenopathy, and no nipple discharge CHEST: Normal inspiratory effort ABDOMEN: soft, non-tender, and no masses PELVIC: external genitalia normal, normal Bartholin's glands, urethra, [place]'s glands, no vulvar lesions, no cervical lesions, physiologic discharge present, normal appearing perineal body and perianal region, cystocele 1st degree, rectocele 1st degree, cervical prolapse 1st degree BIMANUAL: uterus normal size, shape and consistency, no adnexal masses, and non-tender RECTOVAGINAL: deferred. NEURO: alert and oriented x3,exam grossly non-focal EXTREMITIES: normal ASSESSMENT/PLAN: 1) Health maintenance: Pap/HPV screening no longer needed Mammogram ordered other health scr (more content not included)...[facility] 12-02-2022 History and physical note Author Dr. Ochoa [facility] December 02, 2022 12:16pm Note Date/Time December 02, 2022 12: 16pm [facility] Medical Records Department [address] [place] [address] History & Physical Exam 12/02/22 1213 MR#: [id number] Acct: [id number] Name: EMELYN KRAMER Rep #:[id number] : 1950 72 From: Martin Ochoa MD PCP: Dr. Agata Maradiaga, DO Status:[facility] Location: [place] [address] History and Physical Date of Admission: 12/02/22 Is patient in pain?: No Allergies adhesive tape Allergy (Verified 11/21/22 09:31) Rashpravastatin [From Pravachol] Allergy (Verified 11/21/22 09:31) MUSCLE PAINcyclobenzaprine [From Flexeril] Adverse Reaction (Verified 11/21/22 09:31) EXTREME WEAKNESSNSAIDS (Non-Steroidal Anti-Inflamma Adverse Reaction (Verified 11/21/22 09:31) GI BLEED Medications aspirin 81 mg tablet,delayed release 81 mg PO QHS heart health 05/31/16 [History Confirmed 11/21/22] fluticasone propionate 50 mcg/actuation nasal spray,suspension 1 spray NASAL QHSnasal lubricant 05/31/16 [History Confirmed 11/21/22] omeprazole 40 mg capsule,delayed release 40 mg PO DAILY GERD 05/31/16 [History Confirmed 11/21/22] venlafaxine 37.5 mg tablet 37.5 mg PO QHS depression 05/31/16 [History Confirmed 11/21/22] calcium carbonate 600 mg-vitamin D3 20 mcg (800 unit) tablet 2 tab PO DAILY@1500supplement 05/11/18 [History Confirmed 11/21/22] nitroglycerin 0.4 mg sublingual tablet 0.4 mg sublingual PRN PRN CHEST PAIN 07/24/18 [History Confirmed 11/21/22] clopidogrel 75 mg tablet 75 mg PO DAILY heart health #90 tabs 03/23/20 [Rx Confirmed 11/21/22] metoprolol succinate 25 mg tablet,extended release 24 hr 25 mg PO DAILY 04/16/21[History Confirmed 11/21/22] tramadol 50 mg tablet 50 mg PO DAILY 04/16/21 [History Confirmed 11/21/22] lisinopril 5 mg tablet 5 mg PO DAILY #90 tabs 09/07/21 [Rx Confirmed 11/21/22] cetirizine 10 mg capsule 10 mg PO DAILY 04/27/22 [History Confirmed 11/21/22] gabapentin 300 mg capsule 300 mg PO TID 04/27/22 [History Confirmed 11/21/22] prednisone 1 mg tablet 1 mg PO DAILY steroid 04/27/22 [History Confirmed 11/21/22] ropinirole 0.25 mg tablet 0.25 mg PO QHS PRN 04/27/22 [History Confirmed 11/21/22] ascorbate calcium (vitamin C) 500 mg tablet 500 mg PO DAILY 05/10/22 [History Confirmed 11/21/22] levothyroxine 137 mcg tablet 137 mcg PO DAILY #90 tabs 05/10/22 [Rx Confirmed 11/21/22] PFSH Medical History? 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 H/O laminectomy (03/2019) History of bilateral hip replacements History of bilateral knee replacement History of carpal tunnel release History of coronary artery stent placement (12/14/07) History of herniorrhaphy History of left heart catheterization (10/02/09) History of radiofrequency ablation procedure for cardiac arrhythmia (09/28/01) wound debridement Family History? 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 Never smoker alcohol intake:? never HPI HPI Surgical H&P: Yes HPI: Patient is a 72 y/o F I am following for left groin pain. Patient is currently scheduled for an elective laparoscopic left inguinal hernia repair. Patient denies any recent hospitalizations or illnesses. Patient notes intermittent leftgroin pain. She notes this has not become any worse. She has recently returned from [place]. She is currently on Plavix for cardiac stents. Patient is also on Prednisone for polymyaglia rheumatica. She denies any previous complications with anesthesia. Patient's previous history per Dr. Ochoa: 72-year-old female who is being referred for left groin pain by Dr. Agata Maradiaga and a written copy of my surgical consult recommendations will return to him.? The patient has concern about a sports hernia on March 23, 2022 the patient had an MRI of the lumbar spine and this demonstrates mild increase of moderate pronounced stenosis right L5-S1 moderately pronounced flattening of thecentral canal stenosis at L2-L3 and also L3-L4 left T12-L1 posterior midline cephalad disc exclusion is a new finding but no obvious nerve root displacement.? She had had a previous CT abdomen pelvis January 25, 2022 demonstrating large amount of fecal material in the colon but no evidence of obstructive uropathy. Patient complains of an intermittently sharp left groin pain.? It tends to come on when she tries to stretch her legs or cough or sneeze.? Has been ongoing for least a year.? She is not able to detect a mass or bulge.? She has been evaluated by Dr. Agata Maradiaga and Dr. Reno Sylvester and Dr. [place].? As noted above she has had imaging. She states that she can tolerate the intermittent discomfort.? She states its not uncomfortable all the time and that she is able to walk and perform most duties she just gets these sharp twinges of pain with certain stretching and andsneezing activity.? She is concerned concerned that this could represent an occult hernia.? She would be interested in having that repaired.? The concept ofa sports hernia has been discussed with her and she is aware that these are difficult to diagnose. She additionally states that she thinks she has some weakness of the left leg.? She sometimes has to help assist her leg and flexing but this is not particularly apparently associated with the pain The patient did have a nerve injection per Dr. Cleveland.? The patient states thather leg was weak for a day and a half.? She attributes that to a nicking of a structure and that I tried to reassure her that this was simply some extravasation of the injection. ROS General General: Yes fatigue; No weight change, appetite, colon cancer, breast cancer or weakness HEENT HEENT: No difficulty swallowing, eye injury, eye surgery, swollen glands or hoarseness Endo Endocrine: Yes thyroid disease; No diabetes mellitus, thyroid cancer, Hair loss, heat intolerance or cold intolerance Skin Skin: No rash or changing moles Breast Breast: No left breast lump, right breast lump, nipple discharge, breast pain, abnormal mammogram, abnormal US or breast enlargement [facility] Musculoskeletal: No back problems, arthritis, rheumatoid arthritis, gout or joint pain Cardio Cardiovascular: Yes heart disease, high blood pressure and heart stent; No murmur, pacemaker, atrial fibrillation, heart attack, palpitations, shortnessof breat with exertion or chest pain Psych Psychiatric: No depression, anxiety or hearing voices Resp Respiratory: No shortness of breath, Yes sleep apnea, No cough, No COPD, No asthma, No emphysema and No wheezing Gastro Gastrointestinal: No abdominal pain, No nausea or vomiting, No diarrhea, Yes constipation, No blood in stool, No acid reflux, No hemorrhoids, No ulcers, No gallbladder problem and No black,tarry stools Favio Hematologic: Yes blood thinners, No blood disorders, No bleeding, No anemia and No blood clots Neuro Neurologic: No system reviewed and no additional complaints, except as documented, No as per HPI, No abnormal gait, No abnormal hearing, No abnormal movements, No abnormal speech, No behavioral changes, No burning sensations, No confusion, No convulsions, No disequilibrium, No dizziness, No localized weakness, No frequent falls, No headache(s), No lack of coordination, No loss ofvision, No memory loss, No numbness, No other visual disturbances, No radicular pain, No restless legs, No sensory deficit, No syncope, No tingling, No tremor(s), No weakness and No other Exam Const General: cooperative, healthy appearing, comfortable and no acute distress [facility] Head: normal to inspection Eyes General: appearance normal, both eyes and all related structures Neck Neck: normal visual inspection Neck mass: No Chest Chest palpation & inspection: normal inspection of the chest Resp Effort & Inspection: normal respiratory effort Auscultation: clear to auscultation bilaterally Cardio Rate: regular rate Rhythm: regular rhythm GI Inspection: normal to inspection Palpation: soft Other: Left groin- tender to palpation. No true hernia palpated. [facility] Cervical Spine: normal cervical lordosis Skin General: no rashes or lesions noted Neuro General: no focal motor deficits and CN's II-XI intact bilaterally Extrem General: normal to inspection Psych Appearance: grossly normal Affect: normal affect Assessment and Plan Assessment and Plan (1) Left groin pain: ?Status:?Acute ?Plan: Dr. Ochoa will plan to perform a laparoscopic left inguinal hernia repair with mesh. Procedure details, risks and benefits have been reviewed. Patient has had the opportunity to ask and have questions answered. Patient verbally understandsand agrees with the plan. Patient will hold her Plavix 5 days prior to the procedure. Patient is on prednisone. Will discuss holding this medication with Dr. Ochoa. We had an extensive discussion in the patient's room today to rehash possible outcome of the procedure. Patient is complaining of pain focally in the left groin with certain movements. She is also complaining of left leg weakness. We extensively discussed the possibility of identifying an indirect inguinal hernia or direct inguinal hernia or a femoral hernia. The patient had it in hermind that we would be looking for femoral nerves and repairing nerves today. I have recanted that if all 3 sites appear normal that she could still have a sports hernia of which some patients are improved by performing a typical hernia repair and supporting the area. We made it very clear today that there would be no nerve inspection or nerve repairs that that would not be part of theprocedure. She would have the same leg weakness that she has now. Unfortunately we also discussed that visual inspection would be unlikely to determine the presence of a sports hernia and that there is not an insignificantchance that postprocedure she has the same left groin pain that she had prior. She is very clear on the benefit risk. She is aware that there are no guarantees of benefit. She is still interested in pursuing the repair as it forsports hernia. We repeated the procedure technique and findings. We will proceed today as timing scheduled. Martin Ochoa M.D., F.A.C.S. 12/02/22 1216 <Electronically signed by Martin Ochoa MD> Cosigner Signature (if applicable): CC: Dr. Agata Maradiaga DO; Dr. Martin Ochoa MD~ Signed [facility] Work Phone: [phone] 733-146608-24-2022 NoteHNO ID: [id number] Author: Wilmer Juarez V, DO Service: ? Author Type: Physician Type: Progress Notes Filed: 05/04/2022 3:34 PM Note Text: SELF Ms. Kramer is a 71 year old female that presents today complaining of knee problems on the left side for the last 3 weeks. She claims that this pain is directly due to falling. The pain is described as improving located along the inside aspect of the knee. She had a left total knee replacement in 2005 and has done fine since that time overall. She states that since her fall on 04/13/2022, she has noticed progressive improvement in symptoms. She was seen in the urgent care 2 days after the fall and was told to follow-up to make sure that everything was fine, since she has a prosthetic knee. ALLERGIES: Adhesive Tape (Rosins), Flexeril [Cyclobenzaprine Hcl], and Pravachol [Pravastatin Sodium] MEDICATIONS: Current Outpatient Medications Medication Sig SYNTHROID 137 mcg tablet metoprolol succinate ER (TOPROL XL) 25 mg 24 hr tablet predniSONE (DELTASONE) 1 mg tablet take 2 tablets by mouth once daily lisinopril (ZESTRIL, PRINIVIL) 5 mg tablet CALCIUM CARBONATE-VITAMIN D2 ORAL calcium carbonate / vitamin D CALCIUM CARBONATE-VITAMIN D 600-125 MG-UNIT TABS One tablet by mouth twice daily CALCIUM CARBONATE-VITAMIN D [id number] Laila Hernandez 01[birth year]2011 [facility] ([id number]) gabapentin (NEURONTIN) 100 mg capsule 700 mg. venlafaxine ER (EFFEXOR XR) 37.5 mg 24 hr capsule Take 1 capsule by mouth once daily. Omeprazole (PRILOSEC) 40 mg capsule Take 1 capsule by mouth once daily. traMADol (ULTRAM) 50 mg tablet Take one to two tablets every eight (8) hours as needed for pain. aspirin 81 mg chewable tablet Take 1 tablet by mouth daily at bedtime. fluticasone (FLONASE) 50 mcg/actuation nasal spray Use 1 [place] in each nostril daily at bedtime. clopidogrel (PLAVIX) 75 mg tablet Take 1 tablet by mouth once daily. nitroglycerin sublingual (NITROQUICK) 0.4 mg SL tablet nitroglycerin Nitroglycerin [Nitrostat] 0.4 MG SL NEEDED PRN For CHEST PAIN July 24, 2018 Active 07-24-2018 [facility] ([id number]) calcium carbonate (CALTRATE 600) 600 mg (1,500 mg) Tab Take 1 tablet by mouth twice daily. CPAP nightly No current facility-administered medications for this visit. MEDICAL HISTORY: PAST MEDICAL HISTORY Diagnosis Date Adrenal insufficiency (HCC) Arthritis, multiple joint involvement ATROPHIC VAGINITIS Coronary atherosclerosis of unspecified type of vessel, [place] or graft 2007 Dr Gonzalez, s/p- stent Degenerative disc disease, cervical Diffuse cystic mastopathy Fibrocystic breast disease Hematuria 2010 benign after evaluation Hyperlipidemia Hypothyroidism Mild dysplasia of cervix 1998 Mitral valve prolapse OSTEOPENIA Other malaise and fatigue PAC (premature atrial contraction) Noted history of PACs Polymyalgia rheumatica (HCC) 1998 atypical, Dr Zuluaga Pure hypercholesterolemia SVT (supraventricular tachycardia) ([facility]) 2005 rarely now since had ablations done (not completely resolved but resolves on own now) Thoracic spondylosis Unspecified sleep apnea cpap Upper GI bleed 2009, 2010 pre-pyloric antrum, mobic discontinued VITAMIN D DEFICIENCY NOS SURGICAL HISTORY: PAST SURGICAL HISTORY Procedure Laterality Date ARTHROSCOPY KNEE DIAGNOSTIC W/WO SYNOVIAL BX SPX 01/2004 Arthroscopy, knee left ARTHRP ACETBLR/PROX FEM PROSTC AGRFT/ALGRFT Right 02/09/2015 Hip replacement, total ARTHRP ACETBLR/PROX FEM PROSTC AGRFT/ALGRFT Left 05/13/2015 Hip replacement, total ARTHRP KNE CONDYLEANDPLATU MEDIALANDLAT COMPARTMENTS 06/2005 Knee replacement, total left ARTHRP KNE CONDYLEANDPLATU MEDIALANDLAT COMPARTMENTS 01/07/2013 Right CARDIAC CATH 09/2009 left CARPAL TUNNEL 2009 right wrist- x2 2020 COLONOSCOP W/ OR W/O BRSH SPEC 02/28/2011 COLONOSCOPY FLX DX W/COLLJ SPEC WHEN PFRMD 10/16/2002 Colonoscopy COLPOSCOPY CERVIX UPPER/ADJACENT VAGINA 02/15/1999 Colposcopy w/ bx EGD TRANSORAL BIOPSY SINGLE/MULTIPLE 11/28/2011 EGD WITH CONTROL OF BLEED, 07/26/2011 EGD WITH CONTROL OF BLEED, 07/26/2011 EP study W/ 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 EP study W/ re-ablation of recuurent SVT 09/2001 ESOPHAGOGASTRODUODENOSCOPY TRANSORAL DIAGNOSTIC 10/20/2009 EGD H-pylori is negative OFFICE LEEP before 2002 PAST SURGICAL HISTORY OF Left 05/2016 wound surgery PTCA/Stent (OMAR) to LAD 12/14/2007 RPR 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 Author Type: ? Type: Progress Notes Filed: 05/04/2022 3:34 PM Note Text: AMB ROOMING INTAKE FLOWSHEET DATA Risk Screening Do you have concerns about personal safety or safety in the home?: No Pain Pain Level: 2 Pain Location: Knee-Left Description: Aching, Dull Duration Amount of Time: 3 Duration Units: Weeks Frequency: Continuous Intervention/Comfort measure: Other: See comment (none)[facility]08-24-2022 NoteHNO ID: [id number] Author: RT Dottie(R) Service: ? Author Type: Technologist Type: Progress Notes Filed: 05/04/2022 2:18 PM Note Text: Radiology Service Progress Note PATIENT NAME: Emelyn Kramer DATE OF SERVICE: May 04, 2022 TIME: 2:05 PM PATIENT IDENTITY VERIFICATION COMPLETED USING TWO (2) IDENTIFIERS: Name and Date of confirmed by patient verbally. FALL SCREENING: Has the patient had 2 falls in the last year or 1 fall with injury or currently using an Ambulatory Assistive Device (Walker, Cane, Wheelchair, Crutches, etc.)? No PATIENT GENDER DATA: Female. status: : No status: NO. PATIENT RELEVANT IMPLANT DATA REVIEWED: Not Applicable RADIOLOGY DEPARTMENT: General X-ray: Exam(s) Completed: Lower Extremity X-Ray(s): Knee, AP / Lat / Tunne / Merchant Left and Wt. Bearing PERIPHERAL IV DATA: Not applicable SIGNED BY: RT Dottie(R) May 04, 2022 2:05 [facility]08-24-2022 History of Present illness Narrative* Wilmer Juarez V, DO - 05/04/2022 2:50 PM EDT SELF Ms. Kramer is a 71 year old female that presents today complaining of knee problems on the left sidefor the last 3 weeks. She claims that this pain is directly due to falling. The pain is described as improving located along the inside aspect of the knee. She had a left total knee replacement in 2005 and has done fine since that time overall. She statesthat since her fall on 04/13/2022, she has noticed progressive improvement in symptoms. She was seen in the urgent care 2 days after the fall and was told to follow-up to make sure that everything was fine, since she has a prosthetic knee. ALLERGIES: Adhesive Tape (Rosins), Flexeril [Cyclobenzaprine Hcl], and Pravachol [Pravastatin Sodium] MEDICATIONS: Current Outpatient Medications Medication Sig SYNTHROID 137 mcg tablet metoprolol succinate ER (TOPROL XL) 25 mg 24 hr tablet predniSONE (DELTASONE) 1 mg tablet take 2 tablets by mouth once daily lisinopril (ZESTRIL, PRINIVIL) 5 mg tablet CALCIUM CARBONATE-VITAMIN D2 ORAL calcium carbonate / vitamin D CALCIUM CARBONATE-VITAMIN D [id number] TABS One tablet by mouth twice daily CALCIUM CARBONATE-VITAMIN D [id number] Laila Hernandez 01-28-2012 [facility] ([id number]) gabapentin (NEURONTIN) 100 mg capsule 700 mg. venlafaxine ER (EFFEXOR XR) 37.5 mg 24 hr capsule Take 1 capsule by mouth once daily. Omeprazole (PRILOSEC) 40 mg capsule Take 1 capsule by mouth once daily. traMADol (ULTRAM) 50 mg tablet Take one to two tablets every eight (8) hours as needed for pain. aspirin 81 mg chewable tablet Take 1 tablet by mouth daily at bedtime. fluticasone (FLONASE) 50 mcg/actuation nasal spray Use 1 [place] in each nostril daily at bedtime. clopidogrel (PLAVIX) 75 mg tablet Take 1 tablet by mouth once daily. nitroglycerin sublingual (NITROQUICK) 0.4 mg SL tablet nitroglycerin Nitroglycerin [Nitrostat] 0.4 MG SL NEEDED PRN For CHEST PAIN July 24, 2018 Active 07-24-2018 [facility] ([id number]) calcium carbonate (CALTRATE 600) 600 mg (1,500 mg) Tab Take 1 tablet by mouth twice daily. CPAP nightly No current facility-administered medications for this visit. MEDICAL HISTORY: PAST MEDICAL HISTORY Diagnosis Date Adrenal insufficiency (HCC) Arthritis, multiple joint involvement ATROPHIC VAGINITIS Coronary atherosclerosis of unspecified type of vessel, [place] or graft 2007 Dr Gonzalez, s/p- stent Degenerative disc disease, cervical Diffuse cystic mastopathy Fibrocystic breast disease Hematuria 2010 benign after evaluation Hyperlipidemia Hypothyroidism Mild dysplasia of cervix 1998 Mitral valve prolapse OSTEOPENIA Other malaise and fatigue PAC (premature atrial contraction) Noted history of PACs Polymyalgia rheumatica (HCC) 1998 atypical, Dr Zuluaga Pure hypercholesterolemia SVT (supraventricular tachycardia) ([facility]) 2005 rarely now since had ablations done (not completely resolved but resolves on own now) Thoracic spondylosis Unspecified sleep apnea cpap Upper GI bleed 2009, 2010 pre-pyloric antrum, mobic discontinued VITAMIN D DEFICIENCY NOS SURGICAL HISTORY: PAST SURGICAL HISTORY Procedure Laterality Date ARTHROSCOPY KNEE DIAGNOSTIC W/WO SYNOVIAL BX SPX 01/2004 Arthroscopy, knee left ARTHRP ACETBLR/PROX FEM PROSTC AGRFT/ALGRFT Right 02/09/2015 Hip replacement, total ARTHRP ACETBLR/PROX FEM PROSTC AGRFT/ALGRFT Left 05/13/2015 Hip replacement, total ARTHRP KNE CONDYLE&PLATU MEDIAL&LAT COMPARTMENTS 06/2005 Knee replacement, total left ARTHRP KNE CONDYLE&PLATU MEDIAL&LAT COMPARTMENTS 01/07/2013 Right CARDIAC CATH 09/2009 left CARPAL TUNNEL 2009 right wrist- x2 2020 COLONOSCOP W/ OR W/O BRSH SPEC 02/28/2011 COLONOSCOPY FLX DX W/COLLJ SPEC WHEN PFRMD 10/16/2002 Colonoscopy COLPOSCOPY CERVIX UPPER/ADJACENT VAGINA 02/15/1999 Colposcopy w/ bx EGD TRANSORAL BIOPSY SINGLE/MULTIPLE 11/28/2011 EGD WITH CONTROL OF BLEED, 07/26/2011 EGD WITH CONTROL OF BLEED, 07/26/2011 EP study W/ 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 EP study W/ re-ablation of recuurent SVT 09/2001 ESOPHAGOGASTRODUODENOSCOPY TRANSORAL DIAGNOSTIC 10/20/2009 EGD H-pylori is negative OFFICE LEEP before 2002 PAST SURGICAL HISTORY OF Left 05/2016 wound surgery PTCA/Stent (OMAR) to LAD 12/14/2007 RPR 1ST INGUN HRNA AGE 5 YRS/> REDUCIBLE 03/02/2011 SHOULDER SURGERY HX Right 08/2018 scope FAMILY HISTORY: FAMILY HISTORY Problem Relation Age of Onset other (Other) Mother MVA AGE 30+ other (Other) Father MVA AGE 30 + Thyroid Sister Ischemic Heart Disease Sister 62 Thyroid Sister Ischemic Heart Disease Brother 50 Thyroid Brother Heart Maternal Grandfather Heart Paternal Grandmother Arthritis Daughter psoriatic arthritis Alzheimer's Disease Maternal Aunt Cancer Maternal Aunt liposarcoma SOCIAL HISTORY: Social History Tobacco Use Smoking status: Never Smokeless tobacco: Never Vaping Use Vaping Use: Never used Substance Use Topics Alcohol use: No Drug use: No PHYSICAL ASSESSMENT: The Pt walks with a slight limping gait B/l LE have Nl Alignment Right Knee Reveals No Effusion. No redness or soft tissue swelling noted. No Abnormal Anterior, Posterior, Varus Laxity. Mild valgus laxity with stress testing. No Medial or Lateral Joint Line Tenderness. No pain with Direct Palpation over the Distal Medial or Lateral Femoral Condyles. Negative Ca's Test. No pain with Patellar compression. The Left Knee Reveals a Effusion. 0-135 degrees of motion. No Abnormal Anterior, Posterior, Varus or Valgus Laxity. No Medial or Lateral Joint Line Tenderness. No pain with Direct Palpation over the Distal Medial or Lateral Femoral Condyles. Negative Ca's Test. There is no pain with patellar compression. RADIOGRAPH: Left knee prosthesis appears to be in good alignment with no obvious fractures or loosening of components. Radiology report pending. ASSESSMENT: Left knee pain after fall- contusion medial knee with MCL strain Status post left total knee replacement-2005 PLAN: She seems to be making good progress toward recovery. She is given some exercises for range of motion and strengthening of the leg and hip. Follow-up is recommended if symptoms worsen, if she develops instability or worsening pain in the knee. Wilmer Juarez DO * Ofelia Melissa Ma - 05/04/2022 2:31 PM EDT AMB ROOMING INTAKE FLOWSHEET DATA Risk Screening Do you have concerns about personal safety or safety in the home?: No Pain Pain Level: 2 Pain Location: Knee-Left Description: Aching, Dull Duration Amount of Time: 3 Duration Units: Weeks Frequency: Continuous Intervention/Comfort measure: Other: See comment (none) [facility] History of Present illness Narrative* RT Dottie(R) - 05/04/2022 2:10 PM EDT Radiology Service Progress Note PATIENT NAME: Emelyn Kramer DATE OF SERVICE: May 04, 2022 TIME: 2:05 PM PATIENT IDENTITY VERIFICATION COMPLETED USING TWO (2) IDENTIFIERS: Name and Date of confirmedby patient verbally. FALL SCREENING: Has the patient had 2 falls in the last year or 1 fall with injury or currently using an Ambulatory Assistive Device (Walker, Cane, Wheelchair, Crutches, etc.)? No PATIENT GENDER DATA: Female. status: : No status: NO. PATIENT RELEVANT IMPLANT DATA REVIEWED: Not Applicable RADIOLOGY DEPARTMENT: General X-ray: Exam(s) Completed: Lower Extremity X- Ray(s): Knee, AP / Lat / Tunne / Merchant Left and Wt. Bearing PERIPHERAL IV DATA: Not applicable SIGNED BY: RT Dottie(R) May 04, 2022 2:05 PM documented in this encounterHol[facility]06-08-[facility]22 History of Present illness Narrative* Alex Back MD - 02/16/2022 8:45 AM EDT Emelyn is a 71 year old who presents for an annual gynecologic exam without complaints. Postmenopausal: yes HRT use: No. 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 History Comments: Sexual Activity: Yes; Male Contraception: No contraception data on record PAST MEDICAL HISTORY Diagnosis Date Adrenal insufficiency (HCC) Arthritis, multiple joint involvement ATROPHIC VAGINITIS Coronary atherosclerosis of unspecified type of vessel, cold springs or graft 2007 Dr Gonzalez, s/p- stent Degenerative disc disease, cervical Diffuse cystic mastopathy Fibrocystic breast disease Hematuria 2010 benign after evaluation Hyperlipidemia Hypothyroidism Mild dysplasia of cervix 1998 Mitral valve prolapse OSTEOPENIA Other malaise and fatigue PAC (premature atrial contraction) Noted history of PACs Polymyalgia rheumatica (HCC) 1998 atypical, Dr Zuluaga Pure hypercholesterolemia SVT (supraventricular tachycardia) ([facility]) 2005 rarely now since had ablations done (not completely resolved but resolves on own now) Thoracic spondylosis Unspecified sleep apnea cpap Upper GI bleed 2009, 2010 pre-pyloric antrum, mobic discontinued VITAMIN D DEFICIENCY NOS PAST SURGICAL HISTORY Procedure Laterality Date ARTHROSCOPY KNEE DIAGNOSTIC W/WO SYNOVIAL BX SPX 01/2004 Arthroscopy, knee left ARTHRP ACETBLR/PROX FEM PROSTC AGRFT/ALGRFT Right 02/09/2015 Hip replacement, total ARTHRP ACETBLR/PROX FEM PROSTC AGRFT/ALGRFT Left 05/13/2015 Hip replacement, total ARTHRP KNE CONDYLE&PLATU MEDIAL&LAT COMPARTMENTS 06/2005 Knee replacement, total left ARTHRP KNE CONDYLE&PLATU MEDIAL&LAT COMPARTMENTS 01/07/2013 Right CARDIAC CATH 09/2009 left CARPAL TUNNEL 2009 right wrist- x2 2020 COLONOSCOP W/ OR W/O BRSH SPEC 02/28/2011 COLONOSCOPY FLX DX W/COLLJ SPEC WHEN PFRMD 10/16/2002 Colonoscopy COLPOSCOPY CERVIX UPPER/ADJACENT VAGINA 02/15/1999 Colposcopy w/ bx EGD TRANSORAL BIOPSY SINGLE/MULTIPLE 11/28/2011 EGD WITH CONTROL OF BLEED, 07/26/2011 EGD WITH CONTROL OF BLEED, 07/26/2011 EP study W/ 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 EP study W/ re-ablation of recuurent SVT 09/2001 ESOPHAGOGASTRODUODENOSCOPY TRANSORAL DIAGNOSTIC 10/20/2009 EGD H-pylori is negative OFFICE LEEP before 2002 PAST SURGICAL HISTORY OF Left 05/2016 wound surgery PTCA/Stent (OMAR) to LAD 12/14/2007 RPR 1ST INGUN HRNA AGE 5 YRS/> REDUCIBLE 03/02/2011 SHOULDER SURGERY HX Right 08/2018 scope FAMILY HISTORY Problem Relation Age of Onset other (Other) Mother MVA AGE 30+ other (Other) Father MVA AGE 30 + Thyroid Sister Ischemic Heart Disease Sister 62 Thyroid Sister Ischemic Heart Disease Brother 50 Thyroid Brother Heart Maternal Grandfather Heart Paternal Grandmother Arthritis Daughter psoriatic arthritis Alzheimer's Disease Maternal Aunt Cancer Maternal Aunt liposarcoma SOCIAL HISTORY Social History Tobacco Use Smoking status: Never Smoker Smokeless tobacco: Never Used Vaping Use Vaping Use: Never used Substance Use Topics Alcohol use: No Drug use: No REVIEW OF SYSTEMS Abdomen: No abdominal pain, nausea, vomiting, diarrhea, or constipation. No bloating, early satiety, indigestion, or increased flatulence. Bladder: No dysuria, gross hematuria, urinary frequency, urinary urgency, or incontinence Breast: No breast lumps, nipple d/c, overlying skin changes, redness or skin retraction Allergies and current medication updated:Yes EXAM: BP 142/62 Ht 5' 3 (1.60m) Wt 183 lb (83.0kg) LMP 09/11/2003 BMI 32.43 kg/(m^2). GENERAL: pleasant, female in no apparent distress [...] external genitalia normal, normal Bartholin's glands, urethra, [place]phant Head's glands, no vulvar lesions, no cervical lesions, physiologic discharge present, normal appearing perineal body and perianal region, cystocele 2nd degree, rectocele 2nd degree, cervical prolapse 2nd degree BIMANUAL: uterus normal size, shape and consistency, no adnexal masses and non-tender RECTOVAGINAL: deferred. NEURO: alert and oriented x3,exam grossly non-focal EXTREMITIES: normal ASSESSMENT/PLAN: 1) Health maintenance: Pap done with HPV. 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/06/2012 Rheumatoid arthritis(714.0) 03/05/20030 02/2011 documented as of this encounter (statuses as of 12/07/2021) [facility] of Past illness Narrative* Problem Noted Date Resolved Date Upper GI bleed 08/18/2011 03/12/2019 Overview: 09/200907/26/11 prepyloric ulcer Inguinal hernia 01/28/2011 07/06/2012 Female stress incontinence 01/17/200801/27 Other specified congenital anomaly of skin 12/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/06/2012 Rheumatoid arthritis(714.0) 03/05/20030 02/2011 documented as of this encounter (statuses as of 02/16/2022) [facility] illness Narrative* Problem Noted Date Resolved Date Upper GI bleed 08/18/2011 03/12/2019 Overview: 09/200907/26/11 prepyloric ulcer Inguinal hernia 01/28/2011 07/06/2012 Female stress incontinence 01/17/200801/27 Other specified congenital anomaly of skin 12/2207/06/2012 Rheumatoid arthritis(714.0) 03/05/20030 02/2011 documented as of this encounter (statuses as of 05/04/2022) [facility] illness Narrative* Problem Noted Date Resolved Date Upper GI bleed 08/18/2011 03/12/2019 Overview: 09/200907/26/11 prepyloric ulcer Inguinal hernia 01/28/2011 07/06/2012 Female stress incontinence 01/17/200801/27 Other specified congenital anomaly of skin 12/2207/06/2012 Rheumatoid arthritis(714.0) 03/05/200302/2011 documented as of this encounter (statuses as of 05/05/2022) [facility] Narrative* Problem Noted Date Resolved Date Upper GI bleed 08/18/2011 03/12/2019 Overview: 09/200907/26/11 prepyloric ulcer Inguinal hernia 01/28/2011 07/06/2012 Female stress incontinence 01/17/200801/27 Other specified congenital anomaly of skin 12/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/06/2012 Rheumatoid arthritis(714.0) 03/05/200302/2011 documented as of this encounter (statuses as of 05/03/2022) [facility]* Diagnosis Onset Date Resolution Status Polymyalgia rheumatica acute History of coronary artery stent placement December 14, 2007 chronic Hyperlipidemia chronic 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 02 resolved [facility] Work Phone: 1(868) 175-164401-18-2002 Evaluation note* Diagnosis Onset Date Resolution Status Left groin pain acute [id number] chronic Hyperlipidemia chronic 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 02 resolved Left groin pain acute [facility] Work Phone: 1([phone]) 668-276701-18-2002 Evaluation note* Diagnosis Onset Date Resolution Status [id number] chronic Hyperlipidemia chronic 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 02 resolved Left groin pain acute Left inguinal hernia acute Umbilical hernia acute Scoliosis of lumbar region d ue to degenerative disease of spine in adult acute [facility] Work Phone: Evaluation + Plan note No data available for this section [facility] Evaluation note* Diagnosis Encounter for screening mammogram for malignant neoplasm of breast- Primary Other screening mammogram [facility] Diagnosis Onset Date Resolution Status 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 Polymyalgia rheumatica acute Secondary adrenal insufficiency acute [facility] Work Phone: Evaluation note* Diagnosis Pap smear of cervix with ASCUS, cannot exclude HGSIL- Primary Papanicolaou smear of cervix with atypical squamous cells cannot exclude high grade squamous intraepithelial lesion (ASC-H) Encounter for gynecological examination (general) (routine) without abnormal findings Pap smear for cervical cancer screening Screening for malignant neoplasm of the cervix History of loop electrical excision procedure (LEEP) Other postprocedural status [facility]* Diagnosis Onset Date Resolution Status 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 Polymyalgia rheumatica acute Secondary adrenal insufficiency acute Contact with or suspected ex posure to other viral communicable disease acute Environmental allergies acut e [facility] Work Phone: Evaluation note* Diagnosis Contusion of left knee, initial encounter- Primary Status post revision of total knee replacement, left [facility]* Diagnosis Left knee pain, unspecified chronicity documented in this encounter [facility]* Diagnosis Left knee pain, unspecified chronicity- Primary [facility]* Diagnosis Onset Date Resolution Status Left groin pain acute Left inguinal hernia acute Umbilical hernia acute Scoliosis of lumbar region d ue to degenerative disease of spine in adult acute Right sided temporal headache acute Right sided temporal headache acute [facility] Work Phone: Evaluation note* Diagnosis Onset Date Resolution Status Occipital neuralgia acute Polymyalgia rheumatica acute Occipital neuralgia acute [facility] Work Phone: Evaluation note* Diagnosis New onset of headaches after age 50- Primary Cervico-occipital neuralgia Other syndromes affecting cervical region [facility] Diagnosis Cervico-occipital neuralgia Other syndromes affecting cervical region [facility]* Diagnosis New onset of headaches after age 49 [facility]* Diagnosis Onset Date Resolution Status Polymyalgia rheumatica acute Occipital neuralgia acute [facility] Work Phone: Hospital Discharge instructions No data available for this section [facility] Progress note No data available for this section [facility] Progress note Author Martin Ochoa [facility] July 21, 2023 7:32am Note Date/Time July 21, 2023 7:32am [facility] System Medical Records Department [address] [place] [address] Progress Note 07/21/23730 MR#: [id number] Acct: [id number] Name: EMELYN KRAMER Rep #:[id number] : 1950 72 From: Martin Ochoa MD PCP: Dr. Agata Maradiaga, DO Status:REG [facility] Location: [place] [address] Progress Note If patient continues to have soft dysphagia and food getting stuck then would consider esophageal manometry. Martin Ochoa M.D., F.A.C.S. 07/21/2332 <Electronically signed by Martin Ochoa MD> Martin Ochoa MD Cosigner Signature (if applicable): CC: ~ Signed [facility] Work Phone: Reason for referral (narrative)* Diagnostic Procedure Only (Routine) - Pending Review Specialty Diagnoses / Procedures Referred By Gilberto prater Referred To Contact [facility] Diagnoses Encounter for screening mammogram for malignant neoplasm of breast Procedures TOO SCREENING SCREENING MAMMOGRAPHY BI 2-VIEW BREAST INC CAD Alex Back MD [address] [place] [address] [facility] [address] [place] [address] Referral ID Status Reason Start Date Expiration Date Visits Requested Visits Authorized [id number] Pending Review Auto-Generat ed Referral 12/07/2021 01/05/2023 1 1 [facility] for referral (narrative)* Diagnostic Procedure Only (Routine) - Closed Specialty Diagnoses / Procedures Referred By Contdonal t Referred To Contact [facility] IMAGING Diagnoses Left knee pain, unspecified chronicity Procedures XR KNEE GENERAL 4V AP BOTH/PA BOTH/LAT/MERC LEFT RADIOLOGIC EXAM KNEE COMPLETE 4/MORE VIEWS Wilmer Juarez, Andriy, DO [address] [place] [address] Xr Imaging Referral ID Status Reason Start Date Expiration Date V isits Requested Visits Authorized [id number] Closed Auto-Generate d Referral 05/03/2022 06/02/2023 1 1 [facility] for referral (narrative)* Diagnostic Procedure Only (Routine) - Pending Review Specialty Diagnoses / Procedures Referred By Contac t Referred To Contact XR IMAGING Diagnoses Left knee pain, unspecified chronicity Procedures XR KNEE GENERAL 4V AP BOTH/PA BOTH/LAT/MERC LEFT RADIOLOGIC EXAM KNEE COMPLETE 4/MORE VIEWS Wilmer Jaurez V, DO [address] [place] [address] X[facility] Imaging Referral ID Status Reason Start Date Expiration Date Visits Requested Visits Authorized [id number] Pending Review Auto-Generat ed Referral 05/03/2022 06/02/2023 1 1 [facility] for visit Narrative* Diagnostic Procedure Only (Routine) - Closed Specialty Diagnoses / Procedures Referred By Gilberto prater Referred To Contact XR IMAGING Diagnoses Left knee pain, unspecified chronicity Procedures XR KNEE GENERAL 4V AP BOTH/PA BOTH/LAT/MERC LEFT RADIOLOGIC EXAM KNEE COMPLETE 4/MORE VIEWS Wilmer Juarez V, DO [address] [place] [address] Xr Imaging Referral ID Status Reason Start Date Expiration Date V isits Requested Visits Authorized [id number] Closed Auto-Generate d Referral 05/03/2022 06/02/2023 1 1 [facility] Summary Purpose Family History No Family History Records Found Relationship Condition Age at Onset Recorded Date/T lynda Not Specified Cardiac disease Unknown Disorder of thyroid Unknown Advance Directives No Advanced Directives Records FoundDocuments on File Type Date Recorded Patient 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 Picture 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 Expl 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 Advance Directive(s) 12/14/2017 8:26 AM Advance Directive Response Recorded Date/ Time Advance Directives Yes June 13, 2016 1:17pm Living Will No November 3rd, 20 19 1:56pm Power of Lastex Operator No July 14, 2019 1:56pm Documents on File Type Date Recorded Patient Motion Picture Operator Expl anation Advance Directive(s) 12/14/2017 8:26 AM Advance Directive Response Recorded Date/ Time Name of Medical Power of Lastex Operator SPOUSE/DACOLINE R November 25, 2022 2:15pm Advance Directives Yes June 13, 2016 1:17pm Living Will No July 14 1:56pm Power of Lastex Operator No July 14, 2019 1:56pm Advance Directive Response Recorded Date/ Time Name of Medical Power of Lastex Operator SPOUSE/DACOLINE R November 25, 2022 2:15pm Advance Directives Yes June 13, 2016 1:17pm Living Will No January 25, 2023 3 :04pm Power of Lastex Operator No January 25, 2023 3:04pm Advance Directive Response Recorded Date/ Time Advance Directives Yes June 13, 2016 12:17pm Living Will No January 25, 2023 2 :04pm Power of Lastex Operator No January 25, 2023 2:04pm Advance Directive Response Recorded Date/ Time Name of Medical Power of Lastex Operator DAUGHTER July 20, 2023 11:17am Advance Directives Yes June 13, 2016 12:17pm Living Will Yes July 20 11:17am Power of Lastex Operator Yes July 20, 2023 11:17am Chief Complaint and Reason for Visit Chief Complaint SCREENING PREVIOUS PATIENT IN [facility]. Reason for Visit Hypothyroidism due t o Romel's thyroiditis Polymyalgia rheumatica Secondary adrenal insufficiency Chief Complaint SCREENING PREVIOUS PATIENT IN [facility]. UTI LEFT GROIN PAIN Reason for Visit Hypothyroidism due t o Romel's thyroiditis Polymyalgia rheumatica Secondary adrenal insufficiency Chief Complaint SCREENING PREVIOUS PATIENT IN [facility] UTI LEFT GROIN PAIN HYDRONEPHROSIS Reason for Visit Hypothyroidism due t o Romel's thyroiditis Polymyalgia rheumatica Secondary adrenal insufficiency Chief Complaint S[facility] HYDRONEPHROSIS MUSCLE/WEKNESS RT HIP *RT HIP REPLACEMENT* Reason for Visit Hypothyroidism due t o Romel's thyroiditis Polymyalgia rheumatica Secondary adrenal insufficiency Chief Complaint SCREENING PREVIOUS PATIENT IN [facility]. UTI LEFT GROIN PAIN HYDRONEPHROSIS MUSCLE/WEKNESS RT HIP *RT HIP REPLACEMENT* STAT BOWEL INCONTINENCE Reason for Visit Hypothyroidism due t o Romel's thyroiditis Polymyalgia rheumatica Secondary adrenal insufficiency Chief Complaint SCREENING PREVIOUS PATIENT IN [facility]. UTI LEFT GROIN PAIN HYDRONEPHROSIS MUSCLE/WEKNESS RT HIP *RT HIP REPLACEMENT* STAT BOWEL INCONTINENCE COVID 19 Reason for Visit Hypothyroidism due t o Romel's thyroiditis Polymyalgia rheumatica Secondary adrenal insufficiency Contact with or suspected exposure to other viral communicable disease Environmental allergies Chief Complaint UTI LEFT GROIN PAIN HYDRONEPHROSIS MUSCLE/WEKNESS RT HIP *RT HIP REPLACEMENT* STAT BOWEL INCONTINENCE COVID 19 LEFT LEG INJURY XRAY 1 y fu X-Ray E-ORDER Reason for Visit Polymyalgia rheumati ca History of coronary artery stent placement Hyperlipidemia AVNRT (AV elidia re-entry tachycardia) Chief Complaint L GROIN PAIN 6 M FU Update H&P PREOP LAP LT ING HERNIA MESH LAP LT ING HERNIA MESH Reason for Visit Left groin pain [id number] Hyperlipidemia AVNRT (AV eliida re-entry tachycardia) Left groin pain Chief Complaint 6 M FU Update H&P PREOP LAP LT ING HERNIA MESH LAP LT ING HERNIA MESH HERNIA 3/24 LUMBAR SPINE Xray room 4 Reason for Visit [id number] Hyperlipidemia AVNRT (AV elidia re-entry tachycardia) Left groin pain Left inguinal hernia Umbilical hernia Scoliosis of lumbar region due to degenerative disease of spine in adult Chief Complaint 6 M FU Update H&P PREOP LAP LT ING HERNIA MESH LAP LT ING HERNIA MESH HERNIA 3/24 LUMBAR SPINE Xray room 4 C-REACTICE PROTEIN,CBC,ERTHROCYTE SED RATE Reason for Visit [id number] Hyperlipidemia AVNRT (AV elidia re-entry tachycardia) Left groin pain Left inguinal hernia Umbilical hernia Scoliosis of lumbar region due to degenerative disease of spine in adult Chief Complaint Update H&P PREOP LAP LT ING HERNIA MESH LAP LT ING HERNIA MESH HERNIA 3/24 LUMBAR SPINE Xray room 4 C-REACTICE PROTEIN,CBC,ERTHROCYTE SED RATE Temporal Artery Biopsy RT TEMPORAL ARTERY BX RT TEMPORAL ARTERY BX RT TEMPORAL ARTERY BX SCREENING Reason for Visit Left groin pain Left inguinal hernia Umbilical hernia Scoliosis of lumbar region due to degenerative disease of spine in adult Right sided temporal headache Right sided temporal headache Chief Complaint cervical spine SELF REFERRED DIFFICULY SWALLOWING CERVICAL SPINE DYSPHAGIA Reason for Visit Occipital neuralgia Polymyalgia rheumatica Occipital neuralgia Chief Complaint SELF REFERRED DIFFIC HUGO SWALLOWING CERVICAL SPINE DYSPHAGIA CERVICO-OCCIPITAL MEURALGIA/TMJ. RX HERE *JENNIFER* Reason for Visit Polymyalgia rheumati ca Occipital neuralgia Reason for Referral Specialty Diagnoses / Procedures Referred By Gilberto prater Referred To Contact Physical Therapy Diagnoses Cervico-occipital neuralgia Procedures DE OFFICE/OUTPATIENT NEW HIGH MDM 60-74 MINUTES Devan May MD [address] [facility] [address] [place] [address] Referral ID Status Reason Start Date Expiration Date Visits Requested Visits Authorized [id number] Pending Review Eval and Treat 3 01/24/2024 99 99 Specialty Diagnoses / Procedures Referred By Gilberto prater Referred To Contact Radiology Diagnoses New onset of headaches after age 50 Procedures MR brain w and wo contrast Devan May MD [address] [facility] [address] [place] [address] Referral ID Status Reason Start Date Expiration Date V isits Requested Visits Authorized [id number] Pending Review 07/28/2023 07/27/2024 1 1 Additional Source Comments INFORMATION SOURCE (unrecogn ized section and content) DATE CREATED AUTHOR 03/01/2018 [facility] DATE CREATED AUTHOR AUTHOR'S ORGANIZ ATION 11/19/2019 [facility] DATE CREATED AUTHOR AUTHOR'S ORGANIZ ATION 02/21/2022 [facility] DATE CREATED AUTHOR AUTHOR'S ORGANIZ ATION 03/11/2023 [facility] DATE CREATED AUTHOR AUTHOR'S ORGANIZ ATION 09/09/2023 [facility] DATE CREATED AUTHOR AUTHOR'S ORGANIZ ATION 01/18/2025 [facility] Source Comments (unrecognize d section and content) In the event this informatio n is protected by the Federal Confidentiality of Alcohol and Drug Abuse Patient Records regulations: The Federal rules restrict any use of the information to criminally investigate or prosecute any alcohol or drug abuse patient.[facility] the event this information is protected by the Federal Confidentiality of Alcohol and Drug Abuse Patient Records regulations: The Federal rules restrict any use of the information to criminally investigate or prosecute any alcohol or drug abuse patient.[facility] System[facility] the event this information is protected by the Federal Confidentiality of Alcohol and Drug Abuse Patient Records regulations: The Federal rules restrict any use of the information to criminally investigate or prosecute any alcohol or drug abuse patient.[facility] System[facility] the event this information is protected by the Federal Confidentiality of Alcohol and Drug Abuse Patient Records regulations: The Federal rules restrict any use of the information to criminally investigate or prosecute any alcohol or drug abuse patient.[facility] System[facility] the event this information is protected by the Federal Confidentiality of Alcohol and Drug Abuse Patient Records regulations: The Federal rules restrict any use of the information to criminally investigate or prosecute any alcohol or drug abuse patient.[facility] Teams (unrecognized sec tion and content) Brick Off Bearer Relationship Specialty Start Date End Date Agata Maradiaga [address] [place], [place] [phone] PCP - General Family Practice 10/22/16 Brick Off Bearer Relationship Specialty Start Date End Date Ashwini Agata Armando DO [address] [place], [place] [id number] PCP - General [facility] Practice 10/22/16 Brick Off Bearer Relationship Specialty Start Date End Date Ashwini Agata TrDO [address] [place], [place] [phone] PCP - [facility] Practice 10/22/16 Brick Off Bearer Relationship Specialty Start Date End Date Ashwini Agata Armando DO [address] [place], [place] [phone] PCP - General Family Practice 10/22/16 Brick Off Bearer Relationship Specialty Start Date End Date AshwiniAgata DO [address] [place], [place] [phone] PCP - General Family Practice 10/22/16 Team Status: Active Member Role Status Dates Dr. Agata Maradiaga DO Family Provider Active Dr. Agata Maradiaga DO Primary Care Provider Active Team Status: Inactive Member Role Status Dates Dr. Agata Maradiaga DO Primary Care Provider, Referrin g Provider Active Lebron Nicole SOCIAL INSURANCE ADMINISTRATOR, SOCIAL INSURANCE ADMINISTRATOR-C Attending Provider Active Team Status: Inactive Member Role Status Dates Dr. Agata Maradiaga DO Primary Care Provider, Referrin g Provider Active Dr. Martin Ochoa MD Attending Provider Active Team Status: Inactive Member Role Status Dates Dr. Agata Maradiaga DO Primary Care Provider, Referrin g Provider Active Joyce Odell PA, PA-C Attending Provider Active Team Status: Active Member Role Status Dates Dr. Agata Maradiaga DO Primary Care Provider Active Dr. Sunny Gonzalez MD Attending Provider Active Dr. Martin Ochoa MD Referring Provider Active Team Status: Active Member Role Status Dates Dr. Agata Maradiaga DO Primary Care Provider Active Dr. Martin Ochoa MD Attending Provid er, Referring Provider, Other Provider Active Team Status: Inactive Member Role Status Dates Dr. Agata Maradiaga DO Primary Care Provider Active Dr. Martin Ochoa MD Attending Provider, Referring Provider Active Team Status: Inactive Member Role Status Dates Dr. Agata Maradiaga DO Primary Care Provider, Referrin g Provider Active Dr. Lizandro Kimble DO Attending Provider Active Team Status: Inactive Member Role Status Dates Dr. Agata Maradiaga DO Primary Care Provider Active Dr. Sunny Gonzalez MD Attending Provider Active Team Status: Inactive Member Role Status Dates Dr. Agata Maradiaga DO Primary Care Prov ider, Attending Provider, Referring Provider Active Team Status: Inactive Member Role Status Dates Dr. Agata Maradiaga DO Primary Care Provider Active Dr. Benny Moser MD Attending Provider, Referring P rosondra Active Team Status: Inactive Member Role Status Dates Dr. Agata Maradiaga DO Primary Care Provider Active Dr. Shayan Hardy MD Attending Provider Active Dr. Benny Moser MD Referring Provider Active Team Status: Active Member Role Status Dates Dr. Agata Maradiaga DO Primary Care Provider Active Dr. Shayan Hardy MD Attending Pr ovider, Referring Provider, Other Provider Active Team Status: Inactive Member Role Status Dates Dr. Agata Maradiaga DO Primary Care Provider, Referrin g Provider Active Dr. Shayan Hardy MD Attending Provider Active Team Status: Inactive Member Role Status Dates Dr. Agtaa Maradiaga DO Primary Care Provider Active Dr. Alex aBck MD Attending Provider, Referring Provider Active Team Status: Inactive Member Role Status Dates Dr. Agata Maradiaga DO Primary Care Provider Active Dr. Shayan Hardy MD Attending Provider, Referr ing Provider Active Team Status: Inactive Member Role Status Dates Dr. Agata Maradiaga DO Primary Care Provider Active Joyce POPE PA-C Attending Provider, Referring Provider Active Team Status: Active Member Role Status Dates Dr. Agata Maradiaga DO Primary Care Provider, Referrin g Provider Active Dr. Martin Ochoa MD Attending Provider, Other Prov ider Active Brick Off Bearer Relationship Specialty Start Date End Date Agata Maradiaga [address] [place] [phone] PCP - General Family Medicine 07/28/23 Brick Off Bearer Relationship Specialty Start Date End Date Agata Maradiaga [address] [place] [phone] PCP - General Family Medicine 07/28/23 Team Status: Inactive Member Role Status Dates Dr. Agata Maradiaga DO Primary Care Provider Active Flor Randhawa NP-C Attending Provider, Referring Prov ider Active Brick Off Bearer Relationship Specialty Start Date End Date Agata Maradiaga [address] [place] [phone] PCP - General Family Medicine 07/28/23 Brick Off Bearer Relationship Specialty Start Date End Date Agata Maradiaga [address] [place] [phone] PCP - General Family Medicine 07/28/23 Team Status: Inactive Member Role Status Dates Dr. Agata Maradiaga , Primary Care Provider Active Dr. Devan May MD Attending Provider, Referring Pro vider Active Goals (unrecognized section and content) Goals may be documented in a n alternate sectionGoals may be documented in an alternate sectionGoals may be documented in an alternate sectionGoals may be documented in an alternate section No data available for this sectionGoals may be documented in an alternate sectionGoals may be documented in an alternate sectionGoals may be documented in an alternate sectionGoals may be documented in an alternate sectionGoals may be documented in an alternate section Reason for Visit (unrecogniz ed section and content) Reason Comments Left Knee Pain Reason Comments New Patient Headache Specialty Diagnoses / Procedures Referred By Contac t Referred To Contact Neurology Diagnoses Headache, unspecified Procedures DE OFFICE/OUTPATIENT NEW MODERATE MDM 45-59 MINUTES Agata Maradiaga [address] [place] [address] Devan May MD [address] [facility] [address] [place] [address] Referral ID Status Reason Start Date Expiration Date Visits Re quested Visits Authorized [id number] Closed 07/28/2023 07/28/2024 1 1 Specialty Diagnoses / Procedures Referred By Contac t Referred To Contact Radiology Diagnoses New onset of headaches after age 50 Procedures MR brain w and wo contrast Devan May MD [address] [address] Referral ID Status Reason Start Date Expiration Date Visits Re quested Visits Authorized [id number] Closed 07/28/2023 07/27/2024 1 1 Reason Onset Date Comments Results 09/07/2023 FOR RECORDS PERTAINING TO PATIENTS WHO ARE OR HAVE BEEN ENROLLED IN A CHEMICAL DEPENDENCY/SUBSTANCEABUSE PROGRAM, SOME INFORMATION MAY BE OMITTED. This clinical summary was aggregated from multiple sources. Caution should be exercised in using it in the provision of clinical care. This summary normalizes information from multiple sources, and as a consequence, information in this document may materially change the coding, format and clinical context of patient data. In addition, data may be omitted in some cases. CLINICAL DECISIONS SHOULD BE BASED ON THE PRIMARY CLINICAL RECORDS. [employer] provides no warranty or guarantee of the accuracy or completeness of information in this document.
[2025-02-27 07:55] LABS: AST(SGOT) 27 U/L (<=31); Alanine Aminotransfer ALT/SGPT 17 U/L (<=34); Albumin, Serum 4.1 g/dL (3.4-4.8); Alkaline Phosphatase 51 U/L (35-104); Bilirubin, Direct 0.17 mg/dL (0.00-0.30); Cholesterol 153 mg/dL (<=200); Globulin 2.4 g/dL (2.2-4.2); High Density Lipoprotein 67 mg/dL; Low Density Lipoprotein Calc. 77 mg/dL; Protein, Total 6.5 g/dL (5.9-8.4); Total Bilirubin 0.37 mg/dL (0.00-1.30); Triglycerides 43 mg/dL; Very Low Density Lipoprotein 9 mg/dL (5-40); cholesterol:hdl ratio screen 2.28
--- NOTE | 2025-02-27 16:37 | STRESSREP ---
Stress Test Report Exercise myocardial perfusion stress test. 74-year-old lady with a history of coronary disease Stress protocol: Resting EKG demonstrates normal sinus rhythm with a rate of 60 bpm resting blood pressure is 138/80 mmHg. The patient exercised according to the regular Urban protocol for a total duration of 6 minutes attaining a maximum heart rate of 127 bpm which was 87% of maximum predicted heart rate; the maximum workload was 7.2 metabolic equivalents. At rest there were no ST or T wave changes noted to suggest ischemia and at peak exercise upsloping ST changes only were noted which did not meet the criteria for ischemia. No clinical angina was noted the test was terminated due to the target heart rate being achieved/fatigue. The peak blood pressure was 188/60 mmHg. Rate-pressure product was 21,500. Myocardial perfusion protocol. 11.5 mCi of technetium 99m sestamibi was injected at rest. The patient exercised according to regular Urban protocol for total duration of 6 minutes and at peak exercise 35 point mCi of technetium 99m sestamibi was injected stress images were obtained stress and rest images were reconstructed in comparing the short axis vertical long and horizontal long axis. Gated images were also obtained. Perfusion SPECT analysis: Review of the stress images demonstrate normal uptake of tracer noted in all areas of the myocardium. The resting images similarly demonstrate normal uptake of tracer noted in all areas of the myocardium. No areas of reversibility are noted to suggest ischemia no previous infarct was noted. Gated SPECT analysis: The gated ejection fraction is 75%. Conclusion: Normal exercise myocardial perfusion stress test at a moderate workload Preserved ejection fraction.
== END | disposition home or self-care (01) ==
PROVIDERS: Physician Assistant Medical; PCP Family Medicine; Referring Provider Nurse Practitioner Gerontology; Visit Provider Nurse Practitioner Gerontology
DX: I25.10 Atherosclerotic heart disease of native coronary artery without angina pectoris (principal)
CPT/HCPCS: 36415; 78452; 80061; 80076; 93017; A9500; A4216

== ENCOUNTER → 2025-03-04 | Outpatient (CLI) | payer MEDICARE, OTHER, SELFPAY ==
--- NOTE | 2025-03-04 12:49 | BI_ITS ---
EXAM: SCRN MAMM (CAD)W/LATISHA BILAT DATE: 03/04/2025 CLINICAL HISTORY: F, Age 74 y/o , SCREENING TECHNIQUE: SCRN MAMM (CAD)W/LATISHA BILAT COMPARISON: Prior exam(s) were compared FINDINGS: TISSUE DENSITY: The breast tissue is heterogeneously dense, which may obscure small masses. Bilateral Breast Mammographic Findings: No suspicious masses, calcifications or other abnormalities are identified. BI/SCRN MAMM (CAD)W/LATISHA BILAT IMPRESSION: No mammographic evidence of malignancy in either breast OVERALL FINAL ASSESSMENT BI-RADS 1: NEGATIVE. RECOMMEND ANNUAL MAMMOGRAPHIC SCREENING. RECOMMENDATION: Routine annual follow-up in 1 Year A letter with findings and recommendations will be mailed to the patient. Reading Location: [id number]
== END | disposition home or self-care (01) ==
LOC: OPBI 12:48
PROVIDERS: PCP Family Medicine; Referring Provider Obstetrics & Gynecology; Visit Provider Obstetrics & Gynecology
DX: Z12.31 Encounter for screening mammogram for malignant neoplasm of breast (principal)
CPT/HCPCS: 77063; 77067

== ENCOUNTER → 2025-07-22 | Outpatient (CLI) | payer MEDICARE, OTHER, SELFPAY ==
--- NOTE | 2025-07-22 12:54 | CT_ITS ---
PROCEDURE: EXTREMITY UPPER WITHOUT CONTRA 07/22/2025 REASON FOR EXAM: POST TRAUMATIC OSTEOARTHRITIS, RIGHT SHOULDER Pain TECHNIQUE: Procedure Code: CTEUWO Modality: CT Procedure: EXTREMITY UPPER WITHOUT CONTRA Coronal and Sagittal reconstruction series were provided. One or more dose reduction techniques were used (e.g., Automated exposure control, adjustment of the mA and/or kV according to patient size, use of iterative reconstruction technique. RADIATION DOSE SUMMARY: CTDlvol: 608.69 mGy DLP: 22.15 mGycm COMPARISON: None. FINDINGS: Computed tomographic images of the right shoulder demonstrate moderate degenerative changes of the acromioclavicular joint as well as the glenohumeral joint with flattening of the glenoid. Cystic degenerative changes of the proximal humerus with bulky marginal osteophytes. The humerus is high-riding. Fibropleural thickening in the right apex. Several calcified granulomas. Soft tissues are otherwise unremarkable. CT/Extremity Upper without Contra IMPRESSION: [id number] degenerative changes of the right glenohumeral and acromiocl avicular joint. No fracture. High-riding humerus suggests rotator cuff injury. This could be further evaluated with MR arthrography if desired. Reading Location: [id number]
== END | disposition home or self-care (01) ==
LOC: CT 12:52
PROVIDERS: PCP Family Medicine; Referring Provider Specialist; Visit Provider Specialist
DX: M19.111 Post-traumatic osteoarthritis, right shoulder (principal); S46.011D Strain of muscle(s) and tendon(s) of the rotator cuff of right shoulder, subsequent encounter
CPT/HCPCS: 73200

== ENCOUNTER → 2025-08-12 | Outpatient (CLI) | payer MEDICARE, OTHER, SELFPAY ==
--- NOTE | 2025-08-12 15:56 | BD_ITS ---
PROCEDURE: DEXA BONE DENSITY STUDY 08/12/2025 REASON FOR EXAM: F, age 75 y/o . Postmenopausal. TECHNIQUE: Procedure Code: BDDBD Modality: DX Procedure: DEXA BONE DENSITY STUDY COMPARISON: None FINDINGS: BMD and T-SCORES Lumbar spine: 1.172 g/cm2, T-score 1.3 Levels: L1 through L4 Change from prior: Improvement of 1.1%. Left 1/3 radius: 0.424 g/cm2, T-score -2.9 . The patient does meet the pharmacological treatment recommendations for prevention of osteoporosis. BD/Dexa Bone Density Study IMPRESSION: OSTEOPOROSIS. Recommend follow-up as clinically warranted. Reading Location: [place] [id number]
== END | disposition home or self-care (01) ==
PROVIDERS: PCP Family Medicine; Referring Provider Family Medicine; Visit Provider Family Medicine
DX: M85.80 Other specified disorders of bone density and structure, unspecified site (principal); Z78.0 Asymptomatic menopausal state
CPT/HCPCS: 77080

== ENCOUNTER 2025-08-18 06:15 | Observation (INO) | payer MEDICARE, OTHER, SELFPAY ==
--- NOTE | 2025-07-24 14:00 | EKG12_ITS ---
Test Reason : PRE OP Blood Pressure : */* mmHG Vent. Rate : 65 BPM Atrial Rate : 65 BPM P-R Int : 138 ms QRS Dur : 68 ms QT Int : 386 ms P-R-T Axes : 33 -5 39 degrees QTcB Int : 401 ms Normal sinus rhythm with sinus arrhythmia Septal infarct , age undetermined Abnormal ECG Confirmed by URVASHI MCMILLAN, MARIAM ([id number]), power superintendent NATASHA FLORES ([id number]) on 07/25/2025 2:38:21 PM Referred By: Neo Chambers Confirmed By: MARIAM LANDIN MD
[2025-07-24 15:31] LABS: Hematocrit 32.2 % (37-47); Hemoglobin 10.4 g/dL (12.0-15.0); Immature Granulocytes Count 0.020 X10^3/uL (0.0-0.0); Mean Corp Hgb Conc 32.3 g/dL (32-36); Mean Corpuscular Volume 101.6 fL (81-99); Mean Platelet Vol. 10.4 fl (6.2-12.0); NRBC Flagged by Analyzer 0 % (0-5); Platelet Count 372 K/mm3 (150-450); RBC Distribution Width CV 14.3 % (11.6-14.6); RBC Distribution Width SD 53.4 fl (35.1-43.9); Red Blood Count 3.17 M/mm3 (4.2-5.4); White Blood Count 9.1 K/mm3 (4.4-11.0)
[2025-07-24 15:59] LABS: Albumin, Serum 4.2 g/dL (3.4-4.8); Anion Gap 10 (5-15); BUN 17 mg/dL (4-19); BUN/Creat Ratio 21.6 RATIO (10-20); Calcium,Total 9.6 mg/dL (7.6-11.0); Carbon Dioxide 25.2 mmol/L (21.0-32.0); Chloride 107 mmol/L (98-108); Glucose 104 mg/dL (70-99); Potassium 4.3 mmol/L (3.3-5.1)
[2025-07-24 16:05] LABS: Magnesium 2.1 mg/dL (1.5-2.2)
--- NOTE | 2025-08-01 17:00 | PAT.ANESEVAL ---
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 08/01/25 16:03 Any Problems With Anesthesia No 08/01/25 16:03 Cholinesterase deficiency No 08/01/25 16:03 You/Your Family Experience No 08/01/25 16:03 fever (hyperthermia) with Relationship Recent Exposure to Contagious No 04/15/25 10:02 Disease Does patient have nerve No 08/01/25 16:03 stimulator Patient instructed to have device shut off --Does patient have Pacemaker or ICD? When Was Last Pacemaker Check QUESTION #4 FULL TEXT: You/Your Family Experience fever (hyperthermia) with Anesthesia Last Oral Intake Last Oral intake: Last Oral Intake NPO since Meds taken in AM with sips of water? Meds patient instructed to take am of surgery PONV PONV - electrical unit rebuilder: PONV - electrical unit rebuilder Female Yes 08/01/25 16:03 HX of Motion Sickness No 08/01/25 16:03 HX of N/V After Surgery No 08/01/25 16:03 Non-Smoker Yes 08/01/25 16:03 Duration of Surgery greater Yes 08/01/25 16:03 than 60 minutes Number of Risk Factors 3 08/01/25 16:03 PONV Score Moderate Risk 08/01/25 16:03 Height & Weight Height & Weight: Anesthesia: Height & Weight Height 5 ft 5 in 04/15/25 10:02 Respiratory Assessment Respiratory Assessment - electrical unit rebuilder: Respiratory Tract Infection Hx - electrical unit rebuilder Hx Respiratory Tract Infection No 08/01/25 16:03 STOP Sleep Apnea STOP Sleep Apnea - electrical unit rebuilder: STOP Sleep Apnea - electrical unit rebuilder Hx Hypertension Yes: CONTROLLED WITH MED 08/01/25 16:03 Hx Sleep Apnea Yes 08/01/25 16:03 CPAP Yes 08/01/25 16:03 BIPAP No 08/01/25 16:03 Do you snore loudly (louder than talking or can be heard Do you often feel tired/ fatigued/ sleepy during daytime? Has anyone observed you stop breathing during sleep? STOP Results Positive 08/01/25 16:03 QUESTION #5 FULL TEXT : Do you snore loudly (louder than talking or can be heard through closed doors)? 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 Specify any problems Hx of Preganancy in last 3 No 08/01/25 16:03 Months Nurse Filling Out Transfusion DSCHRIBER 08/01/25 16:03 & Questions: Date: 08/01/25 08/01/25 16:03 Time: 16:05 08/01/25 16:03 Patient unable to answer at this time (ie. confused, unrespo /Reproduction History /Reproductive History - electrical unit rebuilder: /Reproductive Hx- electrical unit rebuilder Hx Now No 08/01/25 16:03 Gestational Age (in weeks): EDC: Hx Hx Para Hx Section SAB No 08/01/25 16:03 Does the father of the baby or his family experience fever w Father of the baby Malignant Hypertension history comment [facility] Medical History (Updated 08/01/25 @ 16:23 by Zenia Paulson) History of stress test Cardiology follow-up encounter Mitral valve prolapse Headache Polyp of esophagus Occipital neuralgia of right side Umbilical hernia Wears glasses History of steroid therapy Osteoporosis Frequent UTI Anemia Restless legs Injury of head and neck Injury of back Migraine headache Syncope Difficulty swallowing Non-smoker CPAP (continuous positive airway pressure) dependence Shortness of breath on exertion Leg cramps History of pain when walking Hypertension Contusion of left knee Left knee pain Polymyalgia rheumatica 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 COVID-19 Adrenal insufficiency Osteoarthritis 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) Atherosclerosis of [place] coronary artery of [place] heart without angina pectoris Hyperlipidemia Supraventricular tachycardia Hypothyroidism (acquired) Obstructive sleep apnea Thoracic spondylosis Myofascitis Polymyalgia rheumatica History of GI bleed Home Medications ?Medication ?Instructions ?Recorded ?Last Taken ?Type aspirin 81 mg tablet,delayed 81 mg PO QHS heart health 05/31/16 07/17/23 History release fluticasone propionate 50 2 spray NASAL QHS nasal lubricant 05/31/16 05/10/18 22:30 History mcg/actuation nasal spray,suspension omeprazole 40 mg capsule,delayed 40 mg PO DAILY GERD 05/31/16 07/21/23 05:10 History release venlafaxine 37.5 mg tablet 37.5 mg PO QHS depression 05/31/16 05/10/18 22:30 History calcium 600 mg (as 2 tab PO DAILY@1500 supplement 05/11/18 05/10/18 15:00 History carbonate)-vitamin D3 20 mcg (800 unit) tablet metoprolol succinate 25 mg 25 mg PO DAILY 04/16/21 07/21/23 05:10 History tablet,extended release 24 hr tramadol 50 mg tablet 50 mg PO .BID-TID 04/16/21 01/27/23 History cetirizine 10 mg capsule 10 mg PO QHS ALLERGIES 04/27/22 Unknown History ascorbate calcium (vitamin C) 500 500 mg PO QHS 05/10/22 Unknown History mg tablet levothyroxine 137 mcg tablet 137 mcg PO DAILY #90 tabs 05/10/22 07/21/23 05:10 Rx Clear Nails 1 tab PO/SL DAILY 01/25/23 Unknown History Lactobacillus comb 1 cap PO DAILY 01/25/23 Unknown History no.1-IEW-lhjwslwjma 300 million cell-250 mg capsule (Probiotic and Acidophilus) d-mannose 500 mg capsule 2,100 mg PO DAILY 01/25/23 Unknown History temazepam 15 mg capsule 15 mg PO QHS PRN Sleep 01/25/23 Unknown History alirocumab 150 mg/mL subcutaneous 150 mg subcut Q2W #6 mL 12/16/24 Unknown Rx pen injector (Praluent Pen) magnesium 200 mg tablet 1,000 mg PO QHS 04/11/25 Unknown History HORSERADISH TREE 1,600 mg PO DAILY 08/01/25 Unknown History IQ BLAST 2 cap PO QPM 08/01/25 Unknown History clopidogrel 75 mg tablet 75 mg PO 1500 health system 08/01/25 Unknown History ferrous sulfate 325 mg (65 mg 325 mg PO DAILY 08/01/25 Unknown History iron) tablet folic acid 800 mcg tablet 800 mcg PO DAILY 08/01/25 Unknown History gabapentin 300 mg capsule 300 mg PO BID 08/01/25 Unknown History prednisone 1 mg tablet 2 mg PO DAILY 08/01/25 Unknown History Allergy/AdvReac Type Severity Reaction Status Date / Time adhesive tape Allergy Rash Verified 08/01/25 12:17 pravastatin (From Pravachol) Allergy MUSCLE PAIN Verified 08/01/25 12:17 Tidblly-LGO-KkE Reductase AdvReac Severe myalgias Verified 08/01/25 12:17 Inhibitor ezetimibe (From Zetia) AdvReac Unknown myalgias Verified 08/01/25 12:17 cyclobenzaprine (From AdvReac EXTREME Verified 08/01/25 12:17 Flexeril) WEAKNESS NSAIDS (Non-Steroidal AdvReac GI BLEED Verified 08/01/25 12:17 Anti-Inflamma Family History Other Breast cancer Heart disease Thyroid disorder Surgical History (Updated 08/01/25 @ 16:23 by Zenia Paulson) H/O angioplasty History of biopsy of temporal artery Hx of bilateral inguinal hernia repair Hx of right cataract extraction Hx of left cataract extraction History of esophagogastroduodenoscopy (EGD) Hx of colonoscopy Hx of right knee surgery Hx of shoulder surgery Hx of fusion of cervical spine History of radiofrequency ablation procedure for cardiac arrhythmia (09/28/01) History of left heart catheterization (10/02/09) History of carpal tunnel release History of bilateral hip replacements History of bilateral knee replacement History of herniorrhaphy H/O laminectomy (03/2019) wound debridement History of coronary artery stent placement (12/14/07) 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 Normal sinus rhythm with sinus arrhythmia. Septal infarct, age undetermined. 65 bpm. Stress test pertinent findings: 02/27/2025. Normal exercise myocardial perfusion stress test. Moderate workload. EF 75%. Consult pertinent findings: Cardiology 01/16/2025. Coronary artery disease. Mid LAD stent 12/14/2007. Most recent stress test 2018. Obtain a another nuclear stress test to assess for any ischemia for surveillance. Appears to be stable. AV elidia reentry tachycardia. Resolved. RFA 2001 and 2000. No current symptoms. Recommendation Anesthesia Recommendation Anesthesia recommendation: OPTIMIZED for anesthesia
--- NOTE | 2025-08-13 12:36 | HP.PCM_ITS ---
History and Physical History and Physical? Patient Name: Emelyn Wolf : 1950From:? ZEKE KEE PA-C? DATE OF PRE-OPERATIVE EXAM: 08/11/2025 DATE OF SURGERY:? 08/18/2025 SCHEDULED PROCEDURE:? Right reverse total shoulder arthroplasty HISTORY OF PRESENT ILLNESS: Preoperative history and physical exam was performed on August 11, 2025.? This is a 75-year-old female who is been having ongoing pain for many years.? She does have previous history of right shoulder arthroscopy with rotator cuff repair which failed and offered no significant relief by Dr. Sethi on August 13, 2018.? Patient was initially scheduled to undergo a right reverse total shoulder arthroplasty in 2019 which had to be canceled due to her diagnosed with cancer.? She was also reevaluated by one of the other providers considering a superior capsular reconstruction which they did not feel she was an appropriate candidate.? Patient began formal physical therapy.? Her pain can still reach 10/10 with activities.? Pain is increased with overhead range of motion.? She has weakness associated with the right shoulder.? She has right hand dominant.? She states that the pain has affected her sleep.? She has to assist her right arm when doing hygiene and hair.? Patient denies any recent fevers, chills or recent infections.? No chest pain or shortness of breath.? D enies past history of DVT or pulmonary embolism.? After failing conservative measures and discussing all treatment options was Dr. Neo Chambers, the patient does wish to proceed with a reverse right total shoulder arthroplasty.? Patient has had clearance is obtained by the primary care provider Dr. Vann and with cardiology group at [facility] with Mari Caal.? Patient has medical history pertinent for iron deficiency, sleep apnea with use of CPAP, heart stents, previous cervical spine fusion, anxiety, polymyalgia rheumatica, history of GI bleed with previous blood transfusion, adrenal insufficiency, vitamin D deficiency, hypertension, frequent urinary tract infections, history of syncope, migraines, gastroesophageal reflux disease, history of supraventricular tachycardia.? Preoperatively patient was found to have hemoglobin of 10.4 in which she was started on our anemia protocol.? She has been getting tramadol from the primary care provider Dr. Vann for chronic pain. REVIEW OF SYSTEMS: Review Of Systems: Constitutional: Reports anxiety, but denies anorexia, change in appetite, fever and weight change,hard of hearing, and vision problems. Cardiovasular: Reports heart problems and irregular heartbeat, but denies chest pain, heart murmur and peripheral vascular disease. Respiratory: Reports sleep apnea, but denies asthma, cough, pneumonia, shortness of breath, tuberculosis and wheezing. Gastrointestinal: Reports GERD and history of a two GI bleeds, but denies constipation, diarrhea, nausea, bloody stools and vomiting, and difficulty swallowing. Genitourinary: Reports irregular menstrual periods. Denies incontinence. Musculoskeletal: Reports gait disturbance and pain, but denies leg swelling, trouble walking and weakness and limp. Skin: Denies Raynaud's, history of shingles and tattoo. Neurological: Denies ambulatory dysfunction, dizziness, numbness/tingling and tremor. Psychiatric: Reports ADHD, anxiety, insomnia and stress, but denies depression and mental illness. Hematologic/Lymphatic: Reports anemia and past transfusion, but denies bleeding/bruising tendency. Reviewed and updated. PAST MEDICAL HISTORY: Advance Care Plan: Other Directive, POA Effective Date: 07/19/2018 Other Directive, LIVING WILL Effective Date: 07/19/2018 Past Medical History: Medical Problems: Thyroid Disease - HYPOTHYROIDISM GI Bleed - (09/2009) and in 2010 Atypical Polymyalgia Rheumatica, S.V.T., Hyperlipidemia, Myofasitis, Thoracic Spondylosis, Sleep Apnea, Coronary Artery Disease (CAD), History of SVT, adrenal insufficiency anxiety - severe - more so frequently? previous blood transfusion - (2010) due to GI bleed? secondary adrenal insufficiency, ADHD, osteopenia, iron deficiency anemia, vitamin D deficiency, insomnia, chronic low back pain, chronic neck pain, High Blood Pressure, UTI frequent, history of syncope, migraines, restless leg syndrome, Acid Reflux, dmitri's disease, Atrioventricular Caryn Reentry Tachycardia Accidents: Fracture - L-4, L-5 Other - (03/03/2022) FELL head neck injury - history of Surgical Hx: Arthroscopy - (2002) LEFT KNEE, [facility] Knee Replacement - (2004) LEFT TKR, [facility] Angioplasty - (12/14/2007) [facility] - (02/10/2009) JAMIEIC @ [facility] Cath Ablations - X2 (2000,2001) RT Knee Arthroscopy - (06/25/2010) [email or web address] Knee Replacement RT - 01-07-13 [email or web address] [facility]? [place] THR - (2014) 3 MONTHS APART COOKIE @ [facility] RT Shoulder Arthroscoopy - (08/13/2018) [email or web address] Cervical Fusion - (04/2019) Shoulder Arthroscopy RT - (08/2018) FAILED ROTATOR CUFF REPAIR Hernia Repair - (2010) Wound Debridement - (2015) Heart Stent - (2007) Anesthesia Complications: None Assistive Devices: Glasses, Cpap Reviewed and updated. SOCIAL HISTORY: Social History: Marital: .Occupation: Retired.Work Status: Retired.Hand Dominance: Right- handed. Personal Habits:? Cigarette Use: Never.Smokeless Tobacco: Never Used Smokeless Tobacco.E-Cigarette Use: Never used.Alcohol: Denies use.Drug Use: Denies Use.Enjoy Exercising: Exercises 1-3 x/month. Reviewed, no changes. VITALS: Ht: 65 Wt: 165lb Wt k.844 BMI: 27.5 BP: 128/76 Pulse: 84 Resp: 17 T: 97.6 T: 36.4C Pain Level: 1010 O2SatR: 99 ALLERGIES: Tape - Adhesives Cause Rash And Alot Of Redness Pravachol Flexeril Climara Anti-Inflammatories? MEDICATIONS: Praluent 150 mg/ml inject 1 ml under the skin every 2 weeks, Metoprolol Succinate ER 25 mg daily, Clopidogrel Bisulfate 75 mg qd, Omeprazole 40 mg daily, Prednisone 1 mg daily, Venlafaxine HCL ER 37.5 mg daily, Gabapentin 300 mg daily, Fluticasone Propionate 50 mcg/Act daily, Synthroid 137 mcg daily, Tramadol HCL 50 mg 2-3 tablets daily, Lisinopril 5 mg daily, Temazepam 15 mg prn, Aspirin 81 81 mg qd, Probiotic (Lactobacillus)? qd, Azo D-Mannose 500 mg qd, Vitamin C 500 mg qd, Calcium & Vitamin D3 Bonehealth? qd, Nail Vitamin? qd, Vitamin D3 25 mcg (1000 Ut) 1 a day, Zyrtec 10 mg qd PRE-OP EXAM:? General appearance:NORMAL? ? ? Other: Eyes: Conjunctivae and lids: NORMAL? Pupils: ERR Ears, Nose, Mouth, and Throat: NORMAL? Other: Inspection of lips, teeth and gums: NORMAL? ?Other: Neck: Examination of neck: no masses noted. Respiratory: Assessment of respiratory effort: NORMAL? ?Other: ?Auscultation of lungs: clear to auscultation no wheezes, rhonchi or rales. Cardiovascular:? Auscultation of heart: regular rate and rhythm, no murmurs, gallops or rubs. PHYSICAL EXAMINATION: On exam of the right shoulder previous portal sites are well healed.? Tenderness to palpation over the anterior and lateral shoulder.? Mild atrophy throughout the right shoulder.? Range of motion active forward flexion 110 and passive 150.? Positive crepitus.? External rotation 20, and internal rotation T10.? Supraspinatus strength 4/5 with increased pain.? Sensation intact to light touch in axillary, radial, median, ulnar nerve distribution. IMAGING STUDIES: Previous x-rays of the right shoulder reveal severe glenohumeral joint space narrowing with superior migration of the humeral head, subchondral sclerosis, bony erosion of the undersurface of the acromion and lateral greater tuberosity.? Osteophyte formation.? Findings are consistent with severe stage IV rotator cuff arthropathy. IMPRESSION: 1.? Severe right shoulder glenohumeral osteoarthritis 2.? Hypertension 3.? Severe anxiety 4.? Polymyalgia rheumatica 5.? Chronic low back pain 6.? Previous cervical spine fusion 7.? ADHD 8.? Iron deficiency anemia 9.? Vitamin D deficiency 10.? History of syncope 11.? Migraines 12.? Restless leg syndrome 13.? Gastroesophageal reflux disease 14.? Dmitri's disease 15.? Coronary artery disease 16.? Overweight with BMI 27.5 PLAN: Dr. Neo Chambers did discuss and review with the patient all treatment options including surgical versus nonsurgical options.? I will continue plan established by Dr. Neo Chambers.? Patient does wish to proceed with the above-stated procedure.? Potential risks, benefits, and complications of the procedure were discussed in detail including but not limited to , infection, nerve and blood vessel damage, persistent pain, numbness, tingling, paresthesias, blood clot, pulmonary embolism, and requirement for possible further surgery.? The patient expressed full understanding and has no further questions for the doctor.? Patient does agree to proceed with the above-stated procedure and has signed the surgery consent form. POST-OP MEDICATION PLAN: Pain Medications: Postoperative pain regimen will be initiated by Dr. Neo Chambers in the hospital.? We are reaching out the patient's primary care provider who has been giving her chronic tramadol.? We are going to discuss with the primary care provider to see if he would like orthopedics to manage postoperative pain medication.? If orthopedics is managing the pain medication she has been advised to stop the tramadol postoperatively and not combined with postoperative pain medication.? She did voice understanding.? Patient has been established on her nutrition protocol and she has also continuing with the ferrous sulfate folic acid with our anemia protocol.? She has history of iron deficiency anemia.? I did advise her that we will most likely have her follow up with her primary care provider 3 weeks postoperatively to continue to manage and treat her anemia.? She has been advised to stop the Plavix 5 days prior to surgery.? We are avoiding nonsteroidal anti-inflammatories due to the history of GI bleed. DVT Prophylaxis Plan:? Aspirin 81 mg twice daily for 4 weeks postoperatively.? Denies past history of DVT or pulmonary embolism.? Continue with BISHNU palacios for 2 weeks postoperatively. This dictation was created using voice recognition software. Phonetic and/or grammatical errors may exist. ___? I have re-examined the patient.? There are no clinical changes since date of exam. ___? See progress notes for changes. ___? Dictated on admission Date: ? ? ?Time: Signature: 08/13/25 (MonAug 13) 12:34 PM? Zeke Kee Added Addendum: We did reach up to the primary care provider and they would like orthopedics to manage her postoperative pain regimen.
[2025-08-18] VITALS (12 sets, daily range): BP systolic 114–160; BP diastolic 57–74; PULSE 66–80; RESP 14–18; TEMP 36.1–36.8; O2SAT 95–100; BMI 27.5
--- NOTE | 2025-08-18 06:15 | RAD_ITS ---
PROCEDURE: SHOULDER MIN 2 VIEWS 08/18/2025 REASON FOR EXAM: TSA TECHNIQUE: Procedure Code: RADSH Modality: DX Procedure: SHOULDER MIN 2 VIEWS Right shoulder two views FINDINGS: There is a reverse shoulder prosthesis in position. The AC joint shows severe hypertrophy without separation. No focal soft tissue abnormality is identified. Hardware is partly visible in the cervical spine. RAD/Shoulder min 2 Views IMPRESSION: Hardware in position. Reading Location: [place]
--- OUTSIDE RECORDS SUMMARY | 2025-08-18 06:34 | XMS RPT_ITS | CCD ---
Author Organization [facility] Care Team Providers Care Ensemble Member Name Role Phone Rafi Johnson Unavailable Unavailable Rafi Johnson Unavailable Unavailable MD Gonzalez Cyril S Unavailable Giselle RN, Leticia Armando Unavailable Unavailable MARTIN JUAREZ (PA) Unavailable Unavailable Agata Maradiaga DO Primary Care Provider Dr. Agata Maradiaga Primary Care Provider [phone] Dr. Agata Maradiaga Referring Provider Dr. Jona Xavier Attending Provider [phone] DR AGATA MARADIAGA DO A Primary Care Physician Dr. Jona Xavier Attending Provider NIKO Nichole Attending Provider Agata Maradiaga DO Primary Care Provider Dr. Agata Maradiaga Primary Care Provider Dr. Agata Maradiaga Referring Provider NIKO De Leon Attending Provider [phone] Sunny Gonzalez Attending Provider Dr. Sofia Dunn Referring Provider Dr. Agata Maradiaga Primary Care Provider [phone] Dr. Agata Maradiaga Referring Provider [phone] Martin Ochoa Attending Provider SONG Nicole NP Attending Provider OLIVE Taylor Attending Provider Dr. Sunny Gonzalez Attending Provider Cebul, Dr. Martin Gonzalez Referring Provider Don, Dr. Martin Gonzalez Other Provider Dr. Agata Maradiaga Primary Care Provider Dr. Agata Maradiaga Referring Provider Don, Dr. Martin Gonzalez Attending Provider Dr. Lizandro Kimble Attending Provider Dr. Agata Maradiaga Primary Care Provider [phone] Dr. Agata Maradiaga Referring Provider Dr. Shayan Hardy Attending Provider Dr. Benny Moser Referring Provider Dr. Shayan Hardy Referring Provider Dr. Shayan Hardy Other Provider WILMER JUAREZ Attending Unavailable ASHWINI, AGATA Armando Primary Care Unavailable ASHWINI, AGATA A Primary Care Unavailable ALEX BACK Attending Unavailable WILMER JUAREZ Referring Unavailable ASHWINI, AGATA Armando Primary Care Unavailable Dr. Agata Maradiaga Primary Care Provider [phone] Dr. Agata Maradiaga Referring Provider [phone] Lizandro Kimble Attending Provider [phone] [place], Dr. Martin Gonzalez Attending Provider Don, Dr. Martin Gonzalez Other Provider Agata Maradiaga Primary Care Provider [phone] DEVAN MAY Attending Unavailable BAVCOLE, DEVAN Referring Unavailable ASHWINI, AGATA Primary Care Unavailable BAVDEVAN MAGALLANES Attending Unavailable BAVCOLE, DEVAN Referring Unavailable ASHWINI, AGATA Primary Care Unavailable DEVAN MAY Attending Unavailable ASHWINI, AGATA Referring Unavailable ASHWINI, AGATA Primary Care Unavailable Dr. Agata Maradiaga Primary Care Provider [phone] Dr. Agata Maradiaga Referring Provider [phone] Lizandro Kimble Attending Provider [phone] Agata Maradiaga DO Primary Care Provider Dr. Agata Maradiaga DO Referring Provider [phone] Ten CRAWLEY-C, Mari Attending Provider [phone] [employer] OP-C, Mari Referring Provider [phone] Mary Kate Corbin Other Provider [phone] Ten CRAWLEY-C, Mari Other Provider [phone] Carlos MCMILLAN, Dr. Correa Attending Provider [phone] Rickey MCMILLAN, Dr. Jordan Attending Provider Dr. Alex Back MD Referring Provider Kemal MCMILLAN, Dr. Ragland Attending Provider Cee Trevizo Attending Provider [phone] Ten [employer] OP, Mari Attending Unavailable Ashwini, Agata Primary Care Unavailable Sunny Gonzalez Attending Unavailable Ashwini, Agata Primary Care Unavailable Ashwini, Agata Primary Care Unavailable Ten CRAWLEY, Mari Attending Unavailable Ashwini, Agata Referring Unavailable Ashwini, Agata Primary Care Unavailable Alex Back Attending Unavailable Alex Back Referring Unavailable Jaskaran Sylvester Attending Unavailable ReyesJaskaran Referring Unavailable Ashwini, Agata Primary Care Unavailable Ashwini, Agata Attending Unavailable Ashwini, Agata Referring Unavailable Ashwini, Agata Primary Care Unavailable Ashwini, Agata Primary Care Unavailable Ashwini, Agata Attending Unavailable Reyes Jaskaran Attending Unavailable Ashwini, Agata Primary Care Unavailable Ashwini, Agata Primary Care Unavailable Mary Kate Corbin Consulting Unavail able Ten CRAWLEY, Mari Attending Unavailable Ten CRAWLEY, Mari Referring Unavailable Ashwini, Agata Primary Care Unavailable Sunny Gonzalez Attending Unavailable Mary Kate Corbin Consulting Unavail able Ten CRAWLEY, Mari Referring Unavailable Ten CRAWLEY, Mari Consulting Unavailable Cee Bullard Attending Unavailable Ashwini, Agata Referring Unavailable Ashwini, Agata Primary Care Unavailable Ellyn Sommer Attending Unavailable Ashwini, Agata Referring Unavailable Ashwini, Agata Primary Care Unavailable Allergies Allergy Classification Reported Allergen(s) Allergy Type Date of Onset Reaction(s) Facility (4 sources) Adhesive bandage; Translations: [ADHESIVE BANDAGES] allergy to substance 04-30-20 13 [facility] Work Phone: (4 sources) NSAIDs drug allergy 12-09-19 16 GI Bleed [facility] Work Phone: [phone] (5 sources) pravastatin; Translations: [Pravastatin] Drug Allergy 04-30-20 13 EXTREME PAIN [facility] Work Phone: [phone] (8 sources) NKDA drug allergy 08-01-20 12 [facility] Work Phone: [phone] (4 sources) FLEXARIL drug allergy 04-30-20 13 [facility] Work Phone: [phone] (7 sources) Adhesive Tape; Translations: [ADHESIVE TAPE (ROSINS)] Propensity to adverse reactions (disorder) 01-17-20 08 Rash [facility] Repository (7 sources) cyclobenzaprine; Translations: [CYCLOBENZAPRINE HCL] Drug Allergy 02-05-20 10 Intolerance [facility] (7 sources) pravastatin; Translations: [PRAVASTATIN SODIUM] Drug Allergy 08-10-20 05 Myalgia [facility] Repository (20 sources) Adhesive Tape; Translations: [adhesive tape] Allergy to substance 05-06-20 21 Rash [facility] (20 sources) cyclobenzaprine; Translations: [cyclobenzaprine] Drug Allergy 05-06-20 21 EXTREME WEAKNESS, LETHARGY [facility] Work Phone: (20 sources) Pravastatin Drug Allergy 05-06-20 21 MUSCLE PAIN [facility] (20 sources) NSAIDS (Non-Steroidal Anti-Inflamma; Translations: [NSAIDS (Non-Steroidal Anti-Inflamma] Propensity to adverse reactions 05-06-20 21 GI BLEED [facility] (1 source) Estradiol; Translations: [estradiol topical] Drug Allergy RASH/REDNESS FROM ADHESIVE [facility] (1 source) Non-steroidal anti-inflammatory agent; Translations: [nonsteroidal anti-inflammatory agents] Drug allergy GI BLEEDING [facility] (1 source) Adhesives (non-codified) Allergy to substance RASH/REDNESS [facility] (5 sources) Wound Dressings Drug Allergy 04-30-20 13 [facility] (5 sources) ezetimibe Drug Allergy 01-17-20 myalgias [facility] (5 sources) Jfhinjd-Xpz-Veu Reductase Inhibitor Propensity to adverse reactions 01-17-20 myalgias [facility] (1 source) cyclobenzaprine Drug Allergy 04-11-20 [facility] Repository (1 source) ezetimibe Drug Allergy 04-11-20 [facility] Repository (1 source) Pravastatin Drug Allergy 04-11-20 [facility] Repository (1 source) Rtlyqfp-Mjj-Jxg Reductase Inhibitor Drug allergy (disorder) 04-11-20 [facility] Repository Medications Current Medications Medication Drug Class(es) Dates Sig (Normalized) Sig (Original) 1 ml alirocumab 150 mg/ml auto-injector (10 sources) PCSK9 Inhibitor Start: 02-07-2024 End: 12-16-2024 Alirocumab (Praluent Pen) 150 mg/mL pen injector Active 150 mg SC every 2 weeks 6 December 16, 2024 10:00am amitriptyline hydrochloride 25 mg oral tablet (5 [...] tablet 0 05/15/2015 Active Start: 04-30-2013 take 1 tablet by pearl th at bedtime Aspirin 81 MG tablet,delayed release (DR/EC) Active 81 mg PO AT BEDTIME May 31, 2016 12:00am heart health Start: 01-16-2013 take 1 tablet by pearl th twice daily ASPIRIN 325 MG TABS One tablet by mouth twice daily ASPIRIN [id number] Irasema Schwartz RN Start: 01-28-2011 ASPIRIN 81 MG TABS ASPIRIN [id number] María Gustafson RN Comment on above: Take 1 tablet by pearl th daily at bedtime. calcium ascorbate 500 mg oral tablet (13 sources) Start: 2 take 1 tablet by mouth once daily Ascorbate Calcium (Vitamin C) 500 mg tablet Active 500 mg PO DAILY May 10, 2022 12:00am calcium carbonate 1500 mg / cholecalciferol 800 unt oral tablet (20 sources) Vitamin D Start: 8 Calcium Carbonate-Vitamin D3 1 TAB tablet Active 2 {tbl} PO DAILY@1500 May 11, 2018 12:00am supplement Start: 05-11-2018 take 2 tablets by mo uth once daily Calcium Carbonate-Vitamin D3 Active 2 TABLET PO DAILY@1500 May 10, 2018 11:00pm calcium carbonate 1500 mg / ergocalciferol 125 mg oral tablet (1 source) Provitamin D2 Compound Start: 12-18-2018 take 1 tablet by mouth once daily calcium (as carbonate)-vitamin D 600 mg-125 intl units oral tablet Dose = 2 tab(s), Oral, Daily, # 270 tab(s), 0 Refill(s) Start Date: 12/18/18 Status: Ordered cetirizine hydrochloride 10 mg oral capsule (20 sources) Histamine-1 Receptor Antagonist Start: 04-27-2022 Cetirizine 10 mg capsule Active 10 mg PO NEEDED as needed for ALLERGIES April 27, 2022 9:21am Start: 12-18-2018 Zyrtec 10 mg o ral tablet Dose : 10 mg = 1 tab(s), Oral, qDay, PRN as needed for allergy symptoms, # 30 tab(s), 0 Refill(s) Start Date: 12/18/18 Status: Ordered Start: 05-31-2016 End: 04-27-2022 take 1 capsule by mouth every other day Cetirizine 10 MG capsule Discontinued 10 mg PO EVERY OTHER DAY May 31, 2016 12:00am April 27, 2022 9:23am Start: 04-30-2013 End: 06-13-2014 ZYRTEC ALLERGY 10 MG TABS as needed CETIRIZINE HCL [id number] Sunny Gonzalez MD Cetirizine HCl ( ZYRTEC ALLERGY PO) Take by mouth. 0 Active Clear Nails (10 sources) Start: 01-25-2023 Clear Nails Ac tive 1 {tbl} SL/PO DAILY January 25, 2023 12:00am Start: 01-25-2023 take 1 tablet by mouth once da selma Clear Nails Active 1 TABLET SL/PO DAILY January 24, 2023 11:00pm Start: 01-25-2023 take 1 tablet by mouth once da selma Clear Nails Active 1 TABLET SL/PO DAILY January 25, 2023 12:00am D-Mannose (10 sources) Start: 01-25-2023 take 1 capsule by mo uth once daily D-Mannose 500 mg Capsule Active 2100 mg PO DAILY January 25, 2023 12:00am Start: 01-25-2023 take 2100 mg by mouth [...] Status: Ordered Start: 05-31-2016 Fluticasone Pr opionate 1 SPRAY spray,suspension Active 1 NMA NASAL AT BEDTIME May 31, 2016 12:00am nasal lubricant Start: 05-31-2016 Fluticasone Pr opionate Active 1 SPRAY NASAL AT BEDTIME May 30, 2016 11:00pm Start: 12-01-2014 take 1 spray(s) nasa l route once daily at bedtime fluticasone (FLONASE) 50 mcg/actuation nasal spray Use 1 [place] in each nostril daily at bedtime. 3 Bottle 3 12/01/2014 Active Comment on above: Use 1 [place] in each nostril daily at bedtime. gabapentin 100 mg oral capsule (20 sources) Anti-epileptic Agent Start: 07-20-2023 take 2 capsules by mouth at bedtime Gabapentin 100 mg capsule Active 200 mg PO AT BEDTIME July 20, 2023 1:00am Start: 07-20-2023 take 200 mg by mouth at bedtim e Gabapentin Active 200 MG PO AT BEDTIME July 20, 2023 12:00am Start: 06-03-2023 gabapentin (Ne urontin) 300 MG capsule Start: 03-16-2023 take 1 capsule by mo uth once daily Gabapentin 100 mg capsule Active 100 mg PO DAILY March 16, 2023 12:00am Start: 03-16-2023 take 100 mg by mouth three times daily Gabapentin Active 100 MG PO THREE TIMES A DAY March 15, 2023 11:00pm Start: 04-27-2022 End: 03-16-2023 take 1 capsule by mouth three times daily Gabapentin 300 mg capsule Discontinued 300 mg PO THREE TIMES A DAY April 27, 2022 12:00am March 16, 2023 9:30am Start: 04-16-2020 End: 04-27-2022 take 1 capsule by mouth three times daily Gabapentin 400 mg capsule Discontinued 400 mg PO THREE TIMES A DAY April 16, 2020 1:27pm April 27, 2022 9:21am Start: 12-17-2019 End: 04-16-2020 take 2 tablets by mouth twice daily Gabapentin 100 mg capsule Discontinued 200 mg PO TWICE A DAY 60 0 December 17, 2019 12:00am April 16, 2020 1:28pm two tabs twice a day, Start: 12-17-2019 End: 04-16-2020 take 2 tablets by mouth twice daily Gabapentin Discontinued 200 MG PO TWICE A DAY 60 December 16, 2019 11:00pm April 16, 2020 12:28pm two tabs twice a day, Start: 07-14-2019 End: 04-16-2020 take 1 capsule by mouth once daily in the morning, then take 2 capsules by mouth once daily at bedtime Gabapentin 400 MG capsule Discontinued 400 mg PO .COMPLEX July 14, 2019 12:00am April 16, 2020 1:28pm 400mg qam, 800mg qhs Start: 03-19-2019 End: 04-17-2019 Gabapentin 300 mg capsule Discontinued PO 90 0 March 19, 2019 12:00am April 17, 2019 2:33pm Start: 03-19-2019 End: 04-17-2019 Gabapentin Discontinued PO 9 0 March 18, 2019 11:00pm April 17, 2019 1:33pm Start: 12-18-2018 gabapentin 100 mg oral capsule Dose : 100 mg = 1 cap(s), Oral, TID, # 90 cap(s), 0 Refill(s) Start Date: 12/18/18 Status: Ordered Start: 11-26-2018 gabapentin (NE URONTIN) 100 mg capsule 700 mg. 0 11/26/2018 Active Start: 12-07-2011 take 1 tablet by pearl three times daily NEURONTIN 300 MG CAPS One tablet by mouth three times daily and as directed GABAPENTIN [id number] Sunny Gonzalez MD Start: 12-07-2011 End: 12-09-2015 take 1 tablet by mouth twice daily NEURONTIN 300 MG CAPS One tablet by mouth twice daily GABAPENTIN [id number] Mary Kate Kramer PA-C Start: 01-28-2011 take 1 tablet by pearl th three times daily NEURONTIN 400 MG CAPS One tablet by mouth three times daily GABAPENTIN [id number] Laila Hernandez Comment on above: 700 mg. Lactobac Comb 7-Fvb-Gqdkbkzvlj (Probiotic And Acidophilus) 300-250 million cell-mg Capsule (10 sources) Start: 01-25-2023 Lactobac Comb 4-Bkc-Uetorlogir (Probiotic And Acidophilus) 300-250 million cell-mg Capsule Active 1 NMA PO DAILY January 25, 2023 12:00am Start: 01-25-2023 take 1 capsule by mo ut once daily Lactobac Comb 8-Odv-Ebxytexqft (Probiotic And Acidophilus) 300-250 million cell-mg Capsule Active 1 CAP PO DAILY January 24, 2023 11:00pm Start: 01-25-2023 take 1 capsule by mo ut once daily Lactobac Comb 0-Bpi-Mzqqvkvife (Probiotic And Acidophilus) 300-250 million cell-mg Capsule Active 1 CAP PO DAILY January 25, 2023 12:00am Magnesium (2 sources) Start: 04-11-2025 take 1 tablet by mouth once daily Magnesium 200 mg tablet Active 200 mg PO daily April 11, 2025 12:00am 24 hr metoprolol succinate 25 mg extended release oral tablet (20 sources) beta-Adrenergic Ashli Start: 05-30-2023 metoprolol succinate XL (Toprol-XL) 25 MG 24 hr tablet Start: 12-01-2021 metoprolol suc cinate ER (TOPROL XL) 25 mg 24 hr tablet Start: 04-16-2021 End: 04-16-2021 Metoprolol Succinate 25 mg t ablet extended release 24 hr Discontinued 50 mg PO DAILY April 16, 2021 1:28pm April 16, 2021 1:29pm Start: 04-16-2021 End: 04-16-2021 take 50 mg by mouth once daily Metoprolol Succinate Di scontinued 50 MG PO DAILY April 16, 2021 12:28pm April 16, 2021 12:29pm Start: 04-16-2021 End: 04-16-2021 Metoprolol Succinate 25 mg t ablet extended release 24 hr Discontinued 50 mg PO TWICE A DAY April 16, 2021 12:57pm April 16, 2021 1:28pm Start: 04-16-2021 End: 04-16-2021 take 50 mg by mouth twice daily Metoprolol Succinate Discontinued 50 MG PO TWICE A DAY April 16, 2021 11:57am April 16, 2021 12:28pm Start: 05-06-2019 End: 04-16-2021 take 1 tablet by mouth once daily Metoprolol Succinate 25 mg tablet extended release 24 hr Discontinued 25 mg PO DAILY 90 December 11, 2019 10:47am April 16, 2021 12:59pm Start: 05-06-2019 End: 05-06-2019 take 1 capsule by mouth once daily Metoprolol Succinate 25 mg capsule,sprinkle,ER 24hr Discontinued 25 mg PO DAILY 30 May 06, 2019 12:00am May 06, 2019 4:38pm Start: 12-18-2018 metoprolol suc cinate 50 mg oral capsule, extended release Dose : 50 mg = 1 cap(s), Oral, qDay, # 30 cap(s), 0 Refill(s) Start Date: 12/18/18 Status: Ordered Start: 06-25-2018 End: 05-01-2019 take 1 tablet by mouth once daily Metoprolol Succinate 25 mg tablet extended release 24 hr Discontinued 25 mg PO DAILY 90 3 December 24, 2018 11:06am May 01, 2019 4:59pm blood pressure Start: 05-31-2016 End: 06-25-2018 take 2 tablets by mouth once daily Metoprolol Succinate 25 MG tablet Discontinued 50 mg PO DAILY May 31, 2016 12:00am June 25, 2018 2:21pm blood pressure Start: 08-01-2012 End: 06-25-2018 take 50 mg by mouth once daily Metoprolol Succinate Di scontinued 50 MG PO DAILY May 30, 2016 11:00pm June 25, 2018 1:21pm Start: 01-28-2011 End: 08-01-2012 take 1 tablet by mouth twice daily METOPROLOL TARTRATE 25 MG TABS One tablet by mouth twice daily METOPROLOL TARTRATE [id number] Leticia Desai RN End: 02-16-2022 metoprolol succinate [...] CHEST PAIN July 24, 2018 Active 07-24-2018 [facility] ([id number]) 0 10/23/2012 Active Start: 10-23-2012 NITROSTAT 0.4 MG SUBL 1 tablet under tongue every 5 min up to 3 X NITROGLYCERIN [id number] Sunny Gonzalez MD Comment on above: nitroglycerin Nitrog lycerin [Nitrostat] 0.4 MG SL NEEDED PRN For CHEST PAIN July 24, 2018 Active 07-24-2018 [facility] ([id number]) omeprazole 40 mg delayed release oral capsule (20 sources) Proton Pump Inhibitor Start: 2 take 1 capsule by mouth once daily Omeprazole 40 MG capsule Active 40 mg PO DAILY May 31, 2016 12:00am GERD Start: 01-28-2011 take 1 tablet by pearl once daily PRILOSEC 20 MG CPDR One tablet by mouth daily OMEPRAZOLE [id number] Laila Hernandez Comment on above: Take 1 capsule by mo [facility] once daily. predniSONE 1 mg oral tablet (20 sources) Corticosteroid Start: 07-01-2023 predniSONE (Deltasone) 1 MG tablet Start: 05-29-2023 take 2 mg by mouth once daily Prednisone 20 mg tablet Active 2 mg PO DAILY May 29, 2023 9:27am Start: 05-29-2023 take 2 mg by mouth once daily Prednisone Active 2 MG PO DAILY May 29, 2023 8:27am Start: 05-29-2023 Prednisone Act meghna 5 MG PO May 29, 2023 8:27am Start: 02-13-2023 End: 05-29-2023 Prednisone 20 mg tablet Disc ontinued 20 mg PO February 13, 2023 12:00am May 29, 2023 9:27am Start: 04-27-2022 take 1 mg by mouth once daily Prednisone Active 1 MG PO DAILY April 27, 2022 9:22am Start: 12-16-2021 End: 03-16-2023 take 2 mg by mouth once daily Prednisone Discontinued 2 MG PO DAILY April 27, 2022 8:22am March 16, 2023 8:31am Start: 04-16-2021 End: 12-16-2021 take 6 mg by mouth once daily Prednisone 1 mg tablet Discontinued 6 mg PO DAILY April 16, 2021 12:56pm December 16, 2021 5:41pm steroid tapering dose Start: 04-16-2021 End: 12-16-2021 take 6 mg by mouth once daily Prednisone Discontinued 6 MG PO DAILY April 16, 2021 11:56am December 16, 2021 4:41pm tapering dose Start: 12-11-2020 End: 03-16-2023 take 2 tablets by mouth once daily Prednisone 1 mg tablet Discontinued 2 mg PO DAILY April 27, 2022 9:22am March 16, 2023 9:31am steroid Start: 04-17-2019 End: 04-16-2021 take 3 tablets by mouth once daily Prednisone 1 mg tablet Discontinued 3 mg PO DAILY April 17, 2019 2:53pm April 16, 2021 12:59pm steroid Start: 04-17-2019 End: 04-16-2021 take 3 mg [...] 1:47pm April 17, 2019 1:53pm Start: 10-31-2013 End: 04-17-2019 take 4 tablets by mouth once daily Prednisone 1 mg tablet Discontinued 4 mg PO DAILY February 23, 2018 2:47pm April 17, 2019 2:53pm steroid Start: 10-31-2013 take 7 tablets by mo ut once daily PREDNISONE 1 MG TABS 7 tablets by mouth daily PREDNISONE [id number] Sunny Gonzalez MD Start: 01-28-2011 take 5 tablets by mo ut once daily PREDNISONE 1 MG TABS 5 tablets by mouth daily PREDNISONE [id number] Sunny Gonzalez MD Comment on above: take 2 tablets by mo uth once daily Probiotic Product (PROBIOTIC-10 PO) (5 [...] 07/28/2023 Active temazepam 15 mg oral capsule (18 sources) Benzodiazepine Start: 01-26-20 take 1 capsule by mouth at bedtime as needed for sleep Temazepam 15 mg Capsule Active 15 mg PO AT BEDTIME as needed for Sleep January 25, 2023 12:00am Start: 09-19-2017 End: 02-16-2022 temazepam 15 mg oral capsule Dose : 15 mg = 1 cap(s), Oral, qHS, PRN for sleep, 0 Refill(s) Start Date: 12/18/18 Status: Ordered levothyroxine sodium 0.137 mg oral tablet (20 sources) l-Thyroxine Start: 02-08-2022 take 1 tablet by mouth once daily Levothyroxine 137 mcg tablet Active 137 ug PO DAILY 90 May 10, 2022 12:00am Start: 04-16-2021 End: 05-10-2022 take 1 tablet by mouth once daily Levothyroxine (Synthroid) 150 mcg tablet Discontinued 150 ug PO DAILY April 16, 2021 12:00am May 10, 2022 9:44am Start: 04-17-2019 End: 04-16-2021 Levothyroxine 125 mcg tablet Discontinued 137 ug PO DAILY April 17, 2019 2:32pm April 16, 2021 1:01pm thyroid Start: 04-17-2019 End: 04-16-2021 take 137 ug by mouth once daily Levothyroxine Discontinued 137 MCG PO DAILY April 17, 2019 1:32pm April 16, 2021 12:01pm Start: 12-18-2018 Synthroid 125 mcg (0.125 mg) oral tablet Dose : 125 mcg = 1 tab(s), Oral, qDay, # 30 tab(s), 0 Refill(s) Start Date: 12/18/18 Status: Ordered Start: 10-31-2013 End: 02-16-2022 take 1 tablet by mouth once daily Levothyroxine 125 MCG tablet Discontinued 125 ug PO DAILY May 31, 2016 12:00am April 17, 2019 2:35pm thyroid Start: 10-31-2013 End: 12-31-2015 take 1 tablet by mouth once daily LEVOTHYROXINE SODIUM 150 MCG TABS One tablet by mouth daily LEVOTHYROXINE SODIUM [id number] Sunny Gonzalez MD Start: 01-28-2011 take 1 tablet by pearl th once daily LEVOXYL 137 MCG TABS One tablet by mouth daily LEVOTHYROXINE SODIUM [id number] Laila Hernandez Comment on above: once daily. [...] (20 sources) Opioid Agonist Start: 1 take 1 tablet by mouth twice daily Tramadol 50 mg tablet Active 50 mg PO TWICE A DAY April 16, 2021 12:00am Start: 04-16-2021 take 50 mg by mouth once daily Tramadol Active 50 MG PO DAILY April 16, 2021 12:00am Start: 04-23-2019 End: 04-16-2020 take 1 tablet by mouth every six hours as needed for pain Tramadol 50 mg tablet Discontinued 50 mg PO EVERY 6 HOURS as needed for pain s April 23, 2019 2:53pm April 16, 2020 1:27pm Start: 07-24-2018 End: 04-17-2019 Tramadol 50 MG tablet Discon tinued 100 mg PO 1500 July 24, 2018 1:00am April 17, 2019 2:33pm Start: 07-24-2018 End: 04-17-2019 Tramadol Discontinued 100 MG PO 1500 July 24, 2018 12:00am April 17, 2019 1:33pm Start: 05-31-2016 End: 04-23-2019 take 1 tablet by mouth twice daily Tramadol 50 MG tablet Discontinued 50 mg PO TWICE A DAY May 31, 2016 12:00am April 23, 2019 2:53pm Start: 10-27-2015 traMADol (ULTR AM) 50 mg tablet Take one to two tablets every eight (8) hours as needed for pain. 450 tablet 1 10/27/2015 Active Start: 01-28-2011 take 1 tablet by pearl th four times daily ULTRAM 50 MG TABS One tablet by mouth four times daily TRAMADOL HCL [id number] Sunny Gonzalez MD Start: 01-28-2011 take 2 tablets by [facility] twice daily as needed ULTRAM 50 MG TABS Two tablets by mouth twice daily as needed TRAMADOL HCL [id number] Laila Hernandez Comment on above: Take one [...] Date: 12/18/18 Status: Ordered Start: 05-31-2016 take 1 tablet by [facility] at bedtime Venlafaxine 37.5 MG tablet Active 37.5 mg PO AT BEDTIME May 31, 2016 12:00am depression Start: 01-28-2011 take 1 capsule by [facility] once daily venlafaxine ER (EFFEXOR XR) 37.5 mg 24 hr capsule Indications: Polymyalgia rheumatica (HCC) Take 1 capsule by mouth once daily. 90 capsule 3 06/09/2016 Active Comment on above: Take 1 capsule by [facility] once daily. Completed/Discontinued Medications Medication Drug Class(es) Dates Sig (Normalized) Sig (Original) acetaminophen 325 mg / oxyCODONE hydrochloride 5 mg oral tablet (20 sources) Opioid Agonist Start: 06-10-2016 End: 09-15-2017 Oxycodone-Acetamino phen 1 TABLET tablet Discontinued 1 - 2 {tbl} PO 4 TIMES DAILY NEEDED as needed for Pain 40 0 June 10, 2016 4:00pm September 15, 2017 9:32am Start: 06-10-2016 End: 09-15-2017 take 1 tablet by mouth four times daily as needed Oxycodone-Acetaminophen Discontinued 1 - 2 TABLET PO 4 TIMES DAILY NEEDED 40 June 10, 2016 3:00pm September 15, 2017 8:32am alendronic acid 35 mg oral tablet (8 sources) Bisphosphonate Start: 01-28-2011 End: 12-07-2011 take 1 tablet by mouth every week FOSAMAX 35 MG TABS 1 tablet by mouth weekly ALENDRONATE SODIUM [id number] Laila Hernandez amoxicillin 875 mg / clavulanate 125 mg oral tablet (20 sources) Penicillin-class Antibacterial Start: 05-31-2016 End: 06-10-2016 take 1 tablet by mouth every twelve hours Amoxicillin-Pot Clavulanate 875 MG tablet Discontinued 875 mg PO Q12H May 31, 2016 12:00am June 10, 2016 3:52pm Start: 05-25-2016 take 1 tablet by pearl th twice daily AUGMENTIN 875-125 MG TABS One tablet by mouth twice daily AMOXICILLIN-POT CLAVULANATE [id number] Devan Zaman MD 168 hr buprenorphine 0.005 mg/hr transdermal system (8 sources) Partial Opioid Agonist Start: 10-31-2013 End: 06-13-2014 BUTRANS 5 MCG/HR PTWK per Dr. Lozano BUPRENORPHINE [id number] Sunny Gonzalez MD calcium carbonate 1500 mg oral tablet (5 sources) Start: 07-06-2012 take 1 tablet by mouth twice daily calcium carbonate (CALTRATE 600) 600 mg (1,500 mg) Tab Take 1 tablet by mouth twice daily. 0 07/06/2012 Active Comment on above: Take 1 tablet by peral th twice daily. calcium carbonate / vitamin D (9 sources) Start: 01-28-2011 take 1 tablet by mouth twice daily CALCIUM CARBONATE-VITAMIN D 600-125 MG-UNIT TABS One tablet by mouth twice daily CALCIUM CARBONATE-VITAMIN D [id number] Laila Hernandez Calcium Carbonat e-Vitamin D (CALCIUM 600+D PO) Take by mouth. 0 Active CALCIUM CARBONATE-VITAMIN D2 ORAL (5 sources) Start: 01-28-2011 take 5-20 tablets by mouth once CALCIUM CARBONATE-VITAMIN D2 ORAL calcium carbonate / vitamin D CALCIUM CARBONATE-VITAMIN D 600-125 MG-UNIT TABS One tablet by mouth twice daily CALCIUM CARBONATE-VITAMIN D [id number] Laila Hernandez 01-28-2011 [facility] ([id number]) 0 01/28/2011 Active Comment on above: calcium carbonate / vitamin D CALCIUM CARBONATE-VITAMIN D 600-125 MG-UNIT TABS One tablet by mouth twice daily CALCIUM CARBONATE-VITAMIN D [id number] Laila Hernandez 01-28-2011 [facility] ([id number]) carvedilol 12.5 mg oral tablet (20 sources) alpha-Adrenergic Ashli, beta-Adrenergic Ashli Start: 05-01-2019 End: 05-06-2019 take 1 tablet by mouth twice daily at mealtime Carvedilol (Coreg) 12.5 mg tablet Discontinued 12.5 mg PO TWICE A DAY 30 0 May 01, 2019 12:00am May 06, 2019 10:45am must administer with a meal/food GLUCOSAMINE-CHONDROITI N CAPS (8 sources) Start: 01-28-2011 End: 06-13-2014 take 1 tablet by mouth once daily GLUCOSAMINE-CHONDROIT IN CAPS One tablet by mouth daily GLUCOSAMINE-CHONDROIT IN CAPS [id number] Sunny Gonzalez MD Start: 01-28-2011 take 1 tablet by pearl th once daily GLUCOSAMINE-CHONDROITIN CAPS One tablet by mouth daily GLUCOSAMINE-CHONDROITIN CAPS [id number] Laila Hernandez ciprofloxacin 500 mg oral tablet (4 sources) Quinolone Antimicrobial Start: 01-14-2016 End: 01-17-2016 take 1 tablet by mouth twice daily CIPROFLOXACIN HCL 500 MG TABS One tablet by mouth twice daily CIPROFLOXACIN HCL [id number] Agata Maradiaga DO clopidogrel 75 mg oral tablet (20 sources) P2Y12 Platelet Inhibitor Start: 01-28-2011 End: 03-23-2020 take 1 tablet by mouth once daily Clopidogrel 75 mg tablet Discontinued 75 mg PO DAILY 90 3 February 18, 2019 1:17pm March 23, 2020 1:03pm heart health Comment on above: Take 1 tablet by pearl th once daily. CPAP (5 sources) Start: 05-23-2007 CPAP nightly 0 05/23/2007 Active Comment on above: nightly diazePAM 5 mg oral tablet (20 sources) Benzodiazepine Start: 06-10-2016 End: 02-23-2018 take 1 tablet by mouth four times daily as needed for muscle spasms Diazepam 5 MG tablet Discontinued 5 mg PO 4 TIMES DAILY NEEDED as needed for Spasms 30 0 June 10, 2016 4:00pm February 23, 2018 2:46pm ergocalciferol (16 sources) Provitamin D2 Compound Start: 10-29-2012 VITAMIN D (ERGOCALCIFEROL) 23399 UNIT CAPS 1 tablet every 2 weeks ERGOCALCIFEROL [id number] Sunny Gonzalez MD Start: 10-29-2012 End: 06-14-2016 VITAMIN D (ERGOCALCIFEROL) 5 0000 UNIT CAPS 1 tablet every 2 weeks ERGOCALCIFEROL [id number] Sunny Gonzalez MD Start: 10-29-2012 VITAMIN D (ERG OCALCIFEROL) 26485 UNIT CAPS 1 tablet every week ERGOCALCIFEROL [id number] Sunny Gonzalez MD Start: 01-28-2011 VITAMIN D (ERG OCALCIFEROL) 76442 UNIT CAPS 1 tablet every other week ERGOCALCIFEROL [id number] Laila Hernandez estradiol 1 mg oral tablet (20 sources) Estrogen Start: 05-31-2016 End: 02-23-2018 take 1 tablet by mouth at bedtime Estradiol 1 MG tablet Discontinued 1 mg PO AT BEDTIME May 31, 2016 12:00am February 23, 2018 2:46pm Start: 01-28-2011 ESTRACE 1 MG T ABS ESTRADIOL [id number] Sunny Gonzalez MD synthetic conjugated estrogens, a 0.625 mg oral tablet (4 sources) Start: 01-28-2011 take 1 tablet by mouth once daily CENESTIN 0.625 MG TABS One tablet by mouth daily ESTROGENS CONJ SYNTHETIC A [id number] Laila Hernandez 1 ml evolocumab 140 mg/ml auto-injector (20 sources) PCSK9 Inhibitor Start: 01-18-2024 End: 02-07-2024 Evolocumab (Repatha Sureclick) 140 mg/mL pen injector Discontinued 140 mg SC every 2 weeks 6 3 January 25, 2024 8:50am February 07, 2024 1:49pm ferrous sulfate 200 mg oral tablet (8 sources) Start: 01-28-2011 End: 12-07-2011 take 1 tablet by mouth twice daily FEOSOL 200 (65 Fe) MG TABS One tablet by mouth twice daily FERROUS SULFATE DRIED [id number] Leticia Desai RN gadobutrol (Gadavist) injection 8.6 mL (1 source) Start: 09-05-2023 End: 09-05-2023 gadobutrol (Gadavist) injection 8.6 mL hydroxychloroquine sulfate 200 mg oral tablet (8 sources) Antirheumatic Agent Start: 06-13-2014 End: 12-18-2014 take 1 tablet by mouth twice daily PLAQUENIL 200 MG TABS One tablet by mouth twice daily HYDROXYCHLOROQUINE SULFATE [id number] Sunny Gonzalez MD levoFLOXacin 500 mg oral tablet (20 sources) Quinolone Antimicrobial Start: 05-25-2016 End: 09-15-2017 Levofloxacin 500 MG tablet Discontinued 500 mg PO .QDAILY 7 0 June 10, 2016 4:00pm September 15, 2017 9:32am lisinopril 5 mg oral tablet (20 sources) Angiotensin Converting Enzyme Inhibitor Start: 08-16-2019 End: 01-16-2025 take 1 tablet by mouth once daily Lisinopril 5 mg tablet Discontinued 5 mg PO DAILY 90 3 September 07, 2021 1:33pm November 25, 2022 2:11pm meloxicam 15 mg oral tablet (8 sources) Nonsteroidal Anti-inflammatory Drug Start: 01-28-2011 End: 12-07-2011 take 1 tablet by mouth once daily MOBIC 15 MG TABS One tablet by mouth daily MELOXICAM [id number] Laila Hernandez progesterone 200 mg oral capsule (20 sources) Progesterone Start: 01-28-2011 End: 02-23-2018 take 1 capsule by mouth at bedtime Progesterone Micronized 200 MG capsule Discontinued 200 mg PO AT BEDTIME May 31, 2016 12:00am February 23, 2018 2:47pm sucralfate 1000 mg oral tablet (8 sources) Aluminum Complex Start: 12-07-2011 End: 08-01-2012 take 1 tablet by mouth twice daily CARAFATE 1 GM TABS One tablet by mouth twice daily SUCRALFATE [id number] Leticia Desai RN triamcinolone acetonide 40 mg/ml injectable suspension (20 sources) Corticosteroid Start: 02-11-2020 End: 02-11-2020 Kenalog (triamcinolone acetonide) 40 mg/mL suspension for injection Discontinued 80 MG INTRAARTIC ONCE 2 February 11, 2020 9:24am February 11, 2020 10:02am Start: 08-13-2019 End: 08-13-2019 Kenalog (triamcinolone aceto nide) 40 mg/mL suspension for injection Discontinued 80 MG INTRAARTIC ONCE 2 August 13, 2019 3:04pm August 13, 2019 [...] for injection Discontinued 10 MG INTRAARTIC ONCE 1 September 15, 2017 10:18am September 15, 2017 10:20am Problems Active Problems Problem Classification Problem Date Documented Da te Episodic/Chronic Abdominal hernia (20 sources) Umbilical hernia; Translations: [Umbilical hernia without obstruction or gangrene] 12-05-2022 Episodic Abdominal pain (18 sources) Left inguinal pain; Translations: [Left lower quadrant pain] 08-29-2022 Episodic Allergic reactions (16 sources) Environmental allergy; Translations: [Other allergy status, other than to drugs and biological substances] Episodic Anxiety disorders (1 source) Generalized anxiety disorder 01-17-2020 Chronic Cardiac dysrhythmias (20 sources) Supraventricular tachycardia; Translations: [Premature atrial contraction] Onset: 2 01-28-2011 Chronic Comment on above: RFA AV node slow pat hway modification 04/18/2001, RFA slow pathway 09/28/2001 Chronic ulcer of skin (20 sources) Ulcer of lower extremity; Translations: [Non-pressure chronic ulcer of unspecified part of left lower leg with fat layer exposed] 04-16-2020 Chronic Comment on above: L97.922nonhealing he matoma ulcer left lateral leg Coronary atherosclerosis and other heart disease (20 sources) Coronary atherosclerosis; Translations: [Coronary arteriosclerosis] Onset: 1 01-28-2011 Chronic Comment on above: PCI-OMAR-Mid LAD w/ 2 .5 x 24 mm [place] Stent 12/14/2007; Disorders of lipid metabolism (20 sources) Hyperlipidemia; Translations: [Hyperlipidemia, unspecified] Onset: 6 01-28-2011 Chronic Essential hypertension (2 sources) Hypertensive disorder; Translations: [Essential (primary) hypertension] 04-07-2025 Chronic Comment on above: CONTROLLED WITH MED Gastroduodenal ulcer (except hemorrhage) (5 sources) Peptic ulcer; Translations: [Peptic ulcer, site unspecified, unspecified as acute or chronic, without hemorrhage or perforation] Onset: 2 12-30-2011 Chronic Genitourinary symptoms and ill-defined conditions (4 sources) Genuine stress incontinence; Translations: [Stress incontinence (female) (male)] 04-07-2025 Chronic Genitourinary symptoms and ill-defined conditions (8 sources) Dysuria; Translations: [Nocturia] Onset: 6 Resolved: 6 01-13-2016 Episodic Headache; including migraine (14 sources) Temporal headache; Translations: [Right sided temporal headache] 01-23-2023 Episodic Headache; including migraine (2 sources) Headache; including migraine; Translations: [Headache, unspecified] Onset: Heart valve disorders (5 sources) Mitral valve prolapse; Translations: [Nonrheumatic mitral (valve) prolapse] 07-06-2012 Chronic Immunizations and screening for infectious disease (20 sources) Contact with or exposure to other viral diseases; Translations: [Exposure to confirmed case of COVID-19] Episodic Menopausal disorders (14 sources) Atrophic vaginitis; Translations: [Postmenopausal atrophic vaginitis] Onset: 8 07-06-2012 Chronic Mood disorders (1 source) Recurrent major depressive episodes, moderate 01-17-2020 Chronic Nonmalignant breast conditions (5 sources) Fibrocystic disease of breast; Translations: [Diffuse cystic mastopathy of unspecified breast] 07-06-2012 Chronic Nonspecific chest pain (20 sources) Precordial pain; Translations: [Chest pain, unspecified] Onset: 1 Resolved: 6 01-28-2011 Episodic Nutritional deficiencies (5 sources) Vitamin D deficiency; Translations: [Vitamin D deficiency, unspecified] Onset: 7 10-02-2015 Chronic Open wounds of extremities (20 sources) Open wound of left lower leg; Translations: [Unspecified open wound, left lower leg, initial encounter] 04-16-2020 Episodic Comment on above: S81.802Dopen surgica l hematoma wound left lateral leg Osteoarthritis (5 sources) Degenerative joint disease involving multiple joints; Translations: [Degenerative joint disease of shoulder region] Onset: 6 12-31-2015 Chronic Other acquired deformities (2 sources) Scoliosis of lumbar spine; Translations: [Other secondary scoliosis, lumbar region] 12-15-2022 Chronic Other acquired deformities (13 sources) Other secondary scoliosis, lumbar region; Translations: [Scoliosis associated with other conditions] 12-15-2022 Chronic Other connective tissue disease (20 sources) Polymyalgia rheumatica; Translations: [Polymyalgia rheumatica] Onset: 5 12-31-2015 Chronic Other connective tissue disease (12 sources) Polymyalgia rheumatica; Translations: [Polymyalgia rheumatica] Chronic Other connective tissue disease (1 source) History of revision of left total knee arthroplasty; Translations: [Presence of left artificial knee joint] Chronic Other connective tissue disease (1 source) Myositis 12-18-2018 Episodic Other endocrine disorders (4 sources) Adrenal cortical hypofunction; Translations: [Unspecified adrenocortical insufficiency] Onset: 6 12-31-2015 Chronic Other endocrine disorders (20 sources) Hypocortisolism secondary to another disorder; Translations: [Other adrenocortical insufficiency] 04-26-2022 Chronic Other endocrine disorders (7 sources) Other adrenocortical insufficiency; Translations: [Glucocorticoid deficiency] Chronic Other gastrointestinal disorders (4 sources) Smearing feces; Translations: [Fecal smearing] 04-07-2025 Episodic Other hereditary and degenerative nervous system conditions (4 sources) Restless legs; Translations: [Restless legs syndrome] Onset: 6 12-31-2015 Chronic Other non-traumatic joint disorders (20 sources) Pain in left knee; Translations: [Pain in joint, lower leg] Onset: 2 Episodic Other nutritional; endocrine; and metabolic disorders (5 sources) Obese class I; Translations: [Obesity, unspecified] Onset: 9 03-12-2019 Chronic Prolapse of female genital organs (10 sources) Incomplete uterovaginal prolapse; Translations: [Incomplete uterovaginal prolapse] Onset: 8 04-01-2008 Chronic Residual codes; unclassified (5 sources) Sleep apnea; Translations: [Sleep apnea, unspecified] Onset: 6 10-02-2015 Chronic Residual codes; unclassified (1 source) Asymptomatic menopausal state; Translations: [Asymptomatic menopausal state] Onset: 5 Episodic Spondylosis; intervertebral disc disorders; other back problems (11 sources) Thoracic spondylosis; Translations: [Spondylosis without myelopathy or radiculopathy, thoracic region] 07-06-2012 Chronic Spondylosis; intervertebral disc disorders; other back problems (20 sources) Low back pain; Translations: [Low back pain] Onset: 3 12-15-2022 Episodic Superficial injury; contusion (20 sources) Contusion of left lower leg, initial encounter; Translations: [Contusion of left lower leg] Onset: 6 05-26-2016 Episodic Comment on above: S80.12xS8 cm traumat ic contusion left lateral leg Thyroid disorders (20 sources) Hypothyroidism, unspecified; Translations: [Hypothyroidism] Onset: 5 Resolved: 6 06-12-2015 Chronic Unclassified (20 sources) Obstructive sleep apnea syndrome; Translations: [Obstructive sleep apnea (adult) (pediatric)] Onset: 6 12-31-2015 Chronic Unclassified (4 sources) Preoperative cardiovascular examination ; Translations: [Encounter for preprocedural cardiovascular examination] Onset: 6 06-08-2016 Unclassified (4 sources) Long-term drug therapy; Translations: [Other rat exterminator (current) drug therapy] Onset: 6 07-10-2017 Unclassified (1 source) Pain, unspecified; Translations: [Pain, unspecified] Onset: 8 Varicose veins of lower extremity (4 sources) Venous varices; Translations: [Asymptomatic varicose veins of unspecified lower extremity] 04-03-2025 Episodic Viral infection (20 sources) Disease caused by 2019-nCoV; Translations: [COVID-19] [...] implant and graft] Onset: 12-14-2007 01-28-2011 Episodic Mycoses (5 sources) Onychomycosis due to dermatophyte ; Translations: [Tinea unguium] Onset: 08-08-2006 07-06-2012 Episodic Other aftercare (4 sources) Other residential (current) drug therapy; Translations: [Other residential (current) drug therapy] Onset: 12-09-2015 12-09-2015 Episodic [...] mammogram for malignant neoplasm of breast] Onset: 03-10-2025 Episodic Unclassified (16 sources) Body mass index (BMI) 27.0-27.9, adult; Translations: [Family history of ischemic heart disease and other diseases of the circulatory system] Onset: 10-31-2013 Resolved: 12-31-2015 10-31-2013 Episodic Urinary tract infections (5 sources) Chronic urinary tract infection; Translations: [Urinary tract infection, site not specified] Onset: 08-01-2025 08-01-2025 Episodic Results Test Name Value Interpretation Reference Range Facility Foot min 3 Viewson Foot min 3 Views [facility] [address] [place] [address] Foot min 3 Views MR#: [id number] Acct: [id number] Name: EMELYN KRAMER Rep #: [id number] : 1950 F 74 From: Seun Gordon MD PCP: Dr. Agata Maradiaga DO Status: DEP AMB Study: Foot min 3 Views Date of Exam: 04/15/25 Exam# [id number] Ordering Dr: Sofia Dunn DPM PROCEDURE: FOOT MIN 3 VIEWS 04/15/2025 REASON FOR EXAM: FRACTURE, FOLLOW UP TECHNIQUE: FOOT MIN 3 VIEWS COMPARISON: 04/27/2022 FINDINGS: Bunion. Hallux valgus. Pes planus. Plantar calcaneal spur. Mostly healed 5th digit proximal phalangeal fracture. RAD/Foot min 3 Views IMPRESSION: Mostly healed 5th digit injury. Reading Location: [place] [address] CC: SOLANGE Dunn; Dr. Agata Maradiaga DO Powder Blender: Signed Normal [facility] Laboratory - Chemistry and C hemistry - challengeOrdered By: Ellyn Sommer on 04-11-2025 Bilirubin Ql (U) Negative [facility] Glucose Ql (U) Negative [facility] Ketones Ql (U) Negative [facility] pH (U) 6 [pH] [facility] Specific gravity (U) [Rel density] 1.010 [facility] Urobilinogen (U) [Mass/Vol] Negative [facility] - Hematology and Cell countsOrdered By: Ellyn Sommer on 04-11-2025 Hemoglobin Ql (U) Negative [facility] - UrinalysisOrder ed By: Ellyn Sommer on 04-11-2025 Nitrite Ql (U) Negative [facility] Protein Ql (U) Negative [facility] MR/BMS.Juliano 04-11-2025 MR/[facility] [address], [address] [place] [address] OFFICE VISIT Date of Service: 04/11/25 MR#: [id number] Acct: [id number] Name: EMELYN KRAMER Rep #: [id number] : 1950 Provider: Dr. Ellyn Britton i, MD Age/Sex: 74/F Location: [facility] Status: Signed Intake Vital Signs 01/16/25 06:42 04/11/25 10:44 Height 5 ft 5 in 5 ft 5 in Weight: 164 lb 8 oz BMI 27.3 BP 131/62 H Blood Pressure Location Lt radial Intake Visit Reasons: 12mo UTI F/U Chief Complaint: 12m uti f/u [place] Required: No Accompanied by: Self Is patient in pain?: No Allergies adhesive tape Allergy (Verified 04/11/25 10:47) Rash pravastatin (From Pravachol) Allergy (Verified 04/11/25 10:47) MUSCLE PAIN Iddxhwx-WYB-TkY Reductase Inhibitor Adverse Reaction (Severe, Verified 04/11/25 10:47) myalgias ezetimibe (From Zetia) Adverse Reaction (Unknown, Verified 04/11/25 10:47) myalgias cyclobenzaprine (From Flexeril) Adverse Reaction (Verified 04/11/25 10:47) EXTREME WEAKNESS NSAIDS (Non-Steroidal Anti-Inflamma Adverse Reaction (Verified 04/11/25 10:47) GI BLEED Medications ???Medication ???Instructions ???Recorded ???Confirmed ???Type aspirin 81 mg tablet,delayed 81 mg PO QHS heart health 05/31/16 04/11/25 History release fluticasone propionate 50 1 spray NASAL QHS nasal lubricant 05/31/16 04/11/25 History mcg/actuation nasal spray,suspension omeprazole 40 mg capsule,delayed 40 mg PO DAILY GERD 05/31/1604/11 History release venlafaxine 37.5 mg tablet 37.5 mg PO QHS depression 05/31/16 04/11/25 History calcium 600 mg (as 2 tab PO DAILY@1500 supplement 04/11/25 History carbonate)-vitamin D3 20 mcg (800 unit) tablet clopidogrel 75 mg tablet 75 mg PO DAILY [facility] #90 04/11/25 Rx tabs metoprolol succinate 25 mg 25 mg PO DAILY 04/16/21 04/11/25 H istory tablet,extended release 24 hr tramadol 50 mg tablet 50 mg PO BID 04/16/21 04/11/25 His tory cetirizine 10 mg capsule 10 mg PO PRN PRN ALLERGIES 2 04/11/25 History ascorbate calcium (vitamin C) 500 500 mg PO DAILY 05/10/22 04/11/25 History mg tablet levothyroxine 137 mcg tablet 137 mcg PO DAILY #90 tabs 05/10/22 04/11/25 Rx Clear Nails 1 tab PO/SL DAILY 01/25/23 5 History Lactobacillus comb 1 cap PO DAILY 01/25/23 04/11/25 H istory no.2-FPW-ijoxhcjmrf 300 million cell-250 mg capsule (Probiotic and Acidophilus) d-mannose 500 mg capsule 2,100 mg PO DAILY 01/25/23 5 History temazepam 15 mg capsule 15 mg PO QHS PRN Sleep 01/25/23 History gabapentin 100 mg capsule 100 mg PO DAILY 03/16/23 01/16/25 History prednisone 20 mg tablet 2 mg PO DAILY 05/29/23 04/11/25 Hi story gabapentin 100 mg capsule 200 mg PO QHS 07/20/23 04/11/25 Hi story alirocumab 150 mg/mL subcutaneous 150 mg subcut Q2W #6 mL 12/16/24 04/11/25 Rx pen injector (Praluent Pen) magnesium 200 mg tablet 200 mg PO QDAY 04/11/25 04/11/25 H istory Post menopausal: Yes Patient : No Have you fallen in the past year?: No PFSH Medical History Mitral valve prolapse Headache Polyp of esophagus Occipital neuralgia of right side Umbilical hernia Wears glasses History of steroid therapy Osteoporosis Frequent UTI Anemia Restless legs Injury of head and neck Injury of back Migraine headache Syncope Difficulty swallowing Gastric reflux Non-smoker CPAP (continuous positive airway pressure) dependence Shortness of breath on exertion Leg cramps History of pain when walking Hypertension Cardiology follow-up encounter Contusion of left knee Left knee pain Polymyalgia rheumatica 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 COVID-19 Adrenal insufficiency Osteoarthritis 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) Atherosclerosis of [place] coronary artery of [place] heart without angina pectoris Hyperlipidemia Supraventricular tachycardia Hypothyroidism (acquired) Obstructive sleep apnea Thoracic spondylosis Myofascitis Polymyalgia rheumatica History of GI bleed Surgical History H/O angioplasty History of biopsy of temporal artery Hx of bilateral inguinal hernia repair Hx of right cataract extraction Hx of left cataract extraction History of esophagogastroduodenoscopy (EGD) Hx of colonoscopy Hx of right knee surgery Hx of shoulder surgery Hx of fusion of cervical spine History of radiofrequency ablation procedure for cardiac arrhythmia (09/28/01) History of left heart catheterization (10/02/09) History of carpal tunnel release History of bilateral hip replacements History of bilatera (more content not included)... Normal [facility] No Panel InformationOrdered By: Ellyn Sommer on 04-11-2025 Urine Leukocytes Negatve [facility] MR/BMS.BVSon 04-03-2025 MR/BMS.BVS [facility] [address] [place] [address] OFFICE VISIT Date of Service: 04/03/25 MR#: [id number] Acct: [id number] Name: EMELYN KRAMER Rep #: [id number] : 1950 Provider: NIKO Enriquez Age/Sex: 74/F Location: [facility] Status: Signed Intake Vital Signs 01/16/25 06:42 04/03/25 08:53 Height 5 ft 5 in Weight: 164 lb BP 139/74 H Blood Pressure Location Lt brachial Position Sitting Respiration 14 Pulse 79 Pulse Source Monitor Temp 97.8 F Temp Source Temporal Pulse Oximetry (%) 97 Oxygen Delivery Method room air Intake Visit Reasons: Varicose Veins/Bulging Veins Is patient in pain?: Yes Allergies adhesive tape Allergy (Verified 04/03/25 08:56) Rash pravastatin (From Pravachol) Allergy (Verified 04/03/25 08:56) MUSCLE PAIN Bfimfnn-EAT-UyI Reductase Inhibitor Adverse Reaction (Severe, Verified 04/03/25 08:56) myalgias ezetimibe (From Zetia) Adverse Reaction (Unknown, Verified 04/03/25 08:56) myalgias cyclobenzaprine (From Flexeril) Adverse Reaction (Verified 04/03/25 08:56) EXTREME WEAKNESS NSAIDS (Non-Steroidal Anti-Inflamma Adverse Reaction (Verified 04/03/25 08:56) GI BLEED Medications ???Medication ???Instructions ???Recorded ???Confirmed [...] 75 mg tablet 75 mg PO DAILY [facility] #90 01/16/25 Rx tabs metoprolol succinate [...] cap PO DAILY 01/25/23 01/16/25 H istory no.6-[id number] 300 million cell-250 mg capsule (Probiotic and [...] 12/16/24 01/16/25 Rx pen injector (Praluent Pen) Is last menstrual period known: No Post menopausal: Yes Patient : No Have you fallen in the past year?: Yes PFSH Medical History Headache Polyp of esophagus Occipital neuralgia of right side Umbilical hernia Wears glasses History of steroid therapy Osteoporosis Frequent UTI Anemia Restless legs Injury of head and neck Injury of back Migraine headache Syncope Difficulty swallowing Gastric reflux Non-smoker CPAP (continuous positive airway pressure) dependence Shortness of breath on exertion Leg cramps History of pain when walking Hypertension Cardiology follow-up encounter Contusion of left knee Left knee pain Polymyalgia rheumatica 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 COVID-19 Adrenal insufficiency Osteoarthritis 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) Atherosclerosis of [place] coronary artery of [place] heart without angina pectoris Hyperlipidemia Supraventricular tachycardia Hypothyroidism (acquired) Obstructive sleep apnea Thoracic spondylosis Myofascitis Polymyalgia rheumatica History of GI bleed Surgical History History of biopsy of temporal artery Hx of bilateral inguinal hernia repair Hx of right cataract extraction Hx of left cataract extraction History of esophagogastroduodenoscopy (EGD) Hx of colonoscopy Hx of right knee surgery Hx of shoulder surgery Hx of fusion of cervical spine History of radiofrequency ablation procedure for cardiac arrhythmia (09/28/01) History of left heart catheterization (10/02/09) History of carpal tunnel release History of bilateral hip rep (more content not included)... Normal [facility] Breast imaging reportOrdered By: Madeline Swann on 03-04-2025 Study report [facility] Imaging Services [address] [place] [address] SCRN MAMM (CAD)W/LATISHA BILAT MR#: [id number] Acct: [id number] Name: EMELYN KRAMER Rep #: [id number] : 1950 F 74 From: Prashanth Wang MD PCP: Dr. Agata Maradiaga DO Status: REG CLI Study:SCRN MAMM (CAD)W/LATISHA BILAT Date of Exa m: 03/04/25 Exam# [id number] Ordering Dr: Alex Back MD EXAM: SCRN MAMM (CAD)W/LATISHA BILAT DATE: 03/04/2025 CLINICAL HISTORY: F, Age 74 y/o , SCREENING TECHNIQUE: SCRN MAMM (CAD)W/LATISHA BILAT COMPARISON: Prior exam(s) were compared FINDINGS: TISSUE DENSITY: The breast tissue is heterogeneously dense, which may obscure small masses. Bilateral Breast Mammographic Findings: No suspicious masses, calcifications or other abnormalities are identified. BI/SCRN MAMM (CAD)W/LATISHA BILAT IMPRESSION: No mammographic evidence of malignancy in either breast OVERALL FINAL ASSESSMENT BI-RADS 1: NEGATIVE. RECOMMEND ANNUAL MAMMOGRAPHIC SCREENING. RECOMMENDATION: Routine annual follow-up in 1 Year A letter with findings and recommendations will be mailed to the patient. Reading Location: [id number] CC: Dr. Agata Maradiaga DO; Dr. Alex Back MD ~ Powder Blender: Signed [facility] SCRN MAMM (CAD)W/LATISHA BILATo n 03-04-2025 SCRN MAMM (CAD)W/LATISHA BILAT [facility] Imaging Services [address] [place] [address] SCRN MAMM (CAD)W/LATISHA BILAT MR#: [id number] Acct: [id number] Name: EMELYN KRAMER Rep #: [id number] : 1950 F 74 From: Madeline Aragon i, MD PCP: Dr. Agata Maradiaga, Status: REG CLI Study: SCRN MAMM (CAD)W/LATISHA BILAT Date of Exam: 02/10 01/03 Exam# [id number] Ordering Dr: Alex Back MD EXAM: SCRN MAMM (CAD)W/LATISHA BILAT DATE: 03/04/2025 CLINICAL HISTORY: F, Age 74 y/o , SCREENING TECHNIQUE: SCRN MAMM (CAD)W/LATISHA BILAT COMPARISON: Prior exam(s) were compared FINDINGS: TISSUE DENSITY: The breast tissue is heterogeneously dense, which may obscure small masses. Bilateral Breast Mammographic Findings: No suspicious masses, calcifications or other abnormalities are identified. BI/SCRN MAMM (CAD)W/LATISHA BILAT IMPRESSION: No mammographic evidence of malignancy in either breast OVERALL FINAL ASSESSMENT BI-RADS 1: NEGATIVE. RECOMMEND ANNUAL MAMMOGRAPHIC SCREENING. RECOMMENDATION: Routine annual follow-up in 1 Year A letter with findings and recommendations will be mailed to the patient. Reading Location: [id number] CC: Dr. Agata Maradiaga DO; Dr. Alex Back MD Powder Blender: Signed Normal [facility] Bilirubin directOrdered By: Mary Kate Kramer on 02-27-2025 Bilirubin.direct [Mass/Vol] 0.17 mg/dL 0.00-0.30 [facility] Bilirubin, totalOrdered By: Mary Kate Kramer on 02-27-2025 Bilirubin [Mass/Vol] 0.37 mg/dL 0.00-1.30 [facility] Calculated very low density lipoprotein (VLDL) cholesterol measurementOrdered By: Mary Kate Kramer on 02-27-2025 Calculated very low density lipoprotein (VLDL) cholesterol measurement 9 mg/dL 5-40 [facility] Cardiovascular stress test r eportOrdered By: Sunny Gonzalez on 02-27-2025 Study report [facility] Cardiovascular Services [address] [place] [address] MR#: [id number] Acct: [id number] Name: EMELYN KRAMER Rep #: [id number] : 1950 74 From: Sunny Gonzalez MD Primary Care: Dr. Agata Maradiaga DO Statu s: REG CLI Referring Dr: Mari Caal NP [employer] OP-C Sex: F C Stress Test Report Exercise myocardial perfusion stress test. 74-year-old lady with a history of coronary disease Stress protocol: Resting EKG demonstrates normal sinus rhythm with a rate of 60 bpm resting bloodpressure is 138/80 mmHg. The patient exercised according to the regular Urban protocol for a total duration of 6 minutes attaining a maximum heart rate of 127bpm which was 87% of maximum predicted heart rate; the maximum workload was 7.2 metabolic equivalents. At rest there were no ST or T wave changes noted to suggest ischemia and at peak exercise upsloping ST changes only were noted whichdid not meet the criteria for ischemia. No clinical angina was noted the test was terminated due to the target heart rate being achieved/fatigue. The peak blood pressure was 188/60 mmHg. Rate-pressure product was 21,500. Myocardial perfusion protocol. 11.5 mCi of technetium 99m sestamibi was injected at rest. The patient exercised according to regular Urban protocol for total duration of 6 minutes and atpeak exercise 35 point mCi of technetium 99m sestamibi was injected stress images were obtained stress and rest images were reconstructed in comparing the short axis vertical long and horizontal long axis. Gated images were also obtained. Perfusion SPECT analysis: Review of the stress images demonstrate normal uptake of tracer noted in all areas of the myocardium. The resting images similarly demonstrate normal uptakeof tracer noted in all areas of the myocardium. No areas of reversibility are noted to suggest ischemia no previous infarct was noted. Gated SPECT analysis: The gated ejection fraction is 75%. Conclusion: Normal exercise myocardial perfusion stress test at a moderate workload Preserved ejection fraction. 02/27/251637 Date _ Sunny Gonzalez MD CC: SONG Caal; Dr. Agata Maradiaga, DO; Mary Kate Kramer, NIKO ~ Date Dictated: 02/27/251636 Date Transcribed: 02/27/251636 Powder Blender: CO Signed [facility] Work Phone: LDL calc ser/plasOrdered By: Mary Kate Kramer on 02-27-2025 Cholesterol in LDL [Mass/Vol] 77 mg/dL [facility] Comment on above: Pvtcnjmhfu=872-587 m g/dL & Higher Yrzg=852 mg/dL or greater Laboratory - Chemistry and C hemistry - challengeOrdered By: Mary Kate Kramer on 02-27-2025 AST [Catalytic activity/Vol] 27 U/L <32 [facility] Lipid Profileon 02-27-2025 CHOL:HDL 2.28 Normal [facility] Comment on above: Performed By: #### L 500.3400, L500.4100 #### [facility] Laboratory [address] [place], [address] Cholesterol [Mass/Vol] 153 mg/dL Normal <=200 [facility] Comment on above: Result Comment: Chol esterol level, Desirable <200 mg/dL Borderline high cholesterol 200-239 mg/dL High cholesterol >=240 mg/dL Recommendations of the NCEP Adult Treatment Panel for the following risk-cutoff thresholds for the [place] population. Performed By: #### L 500.3400, L500.4100 #### [facility] [address] [place], [address] Cholesterol in HDL [Mass/Vol] 67 mg/dL Normal [facility] Comment on above: Result Comment: Michelle onal Cholesterol Education Program (NCEP) guidelines: <40 mg/dL: Low HDL-cholesterol (major risk factor for CHD) >= 60 mg/dL: High HDL-cholesterol (negative risk factor for CHD) HDL-cholesterol is affected by a number of factors, e.g. smoking, exercise, hormones, sex and age. Performed By: #### L 500.3400, L500.4100 #### [facility] [address] [place], [address] Cholesterol in LDL [Mass/Vol] 77 mg/dL Normal [facility] Comment on above: Result Comment: Bord nyrxnl=419-302 mg/dL Higher Isdn=237 mg/dL or greater Performed By: #### L 500.3400, L500.4100 #### [facility] [address] [place], [address] Cholesterol in VLDL [Mass/Vol] 9 mg/dL Normal 5-40 [facility] Comment on above: Performed By: #### L 500.3400, L500.4100 #### [facility] [address] [place], [address] Triglyceride [Mass/Vol] 43 mg/dL Normal [facility] Comment on above: Result Comment: The drugs N-Acetylcysteine and Metamizole may falsely depress this assay. Normal range: <150 mg/dL Borderline High: 150-199 mg/dL High: 200-499 mg/dL Very High: >500 mg/dL Performed By: #### L 500.3400, L500.4100 #### [facility] [address] [place], [address] Liver Profileon 02-27-2025 Albumin [Mass/Vol] 4.1 g/dL Normal 3.4-4.8 [facility] Comment on above: Performed By: #### L 500.3400, L500.4100 #### [facility] [address] [place], [address] ALK PHOS 51 U/L Normal 35-104 [facility] Comment on above: Performed By: #### L 500.3400, L500.4100 #### [facility] [address] [place], [address] ALT [Catalytic activity/Vol] 17 U/L Normal <=34 [facility] Comment on above: Performed By: #### L 500.3400, L500.4100 #### [facility] [address] [place], [address] AST [Catalytic activity/Vol] 27 U/L Normal <=31 [facility] Comment on above: Performed By: #### L 500.3400, L500.4100 #### [facility] [address] [place], [address] Bilirubin [Mass/Vol] 0.37 mg/dL Normal 0.00-1.30 [facility] Comment on above: Performed By: #### L 500.3400, L500.4100 #### [facility] [address] [place], [address] Bilirubin.direct [Mass/Vol] 0.17 mg/dL Normal 0.00-0.30 [facility] Comment on above: Performed By: #### L 500.3400, L500.4100 #### [facility] [address] [place], [address] Globulin (S) [Mass/Vol] 2.4 g/dL Normal 2.2-4.2 [facility] Comment on above: Performed By: #### L 500.3400, L500.4100 #### [facility] [address] [place], [address] T PROT 6.5 g/dL Normal 5.9-8.4 [facility] Comment on above: Performed By: #### L 500.3400, L500.4100 #### [facility] [address] [place], [address] Screening total cholesterol/ high density lipoprotein (HDL) cholesterol ratioOrdered By: Mary Kate Kramer on 02-27-2025 Cholesterol.total/Ch olesterol in HDL [Mass ratio] 2.28 {ratio} [facility] Serum globulin measurementOr dered By: Mary Kate Kramer on 02-27-2025 Globulin (S) [Mass/Vol] 2.4 g/dL 2.2-4.2 [facility] Serum or plasma alanine finn otransferase (ALT) measurementOrdered By: Mary Kate Kramer on 02-27-2025 ALT [Catalytic activity/Vol] 17 U/L <35 [facility] Serum or plasma albumin raffaele urement (mass/volume)Ordered By: Mary Kate Kramer on 02-27-2025 Albumin [Mass/Vol] 4.1 g/dL 3.4-4.8 [facility] Serum or plasma alkaline zachery sphatase measurementOrdered By: Mary Kate Kramer on 02-27-2025 ALP [Catalytic activity/Vol] 51 U/L 35-104 [facility] Serum or plasma cholesterol in HDL measurement (mass/volume)Ordered By: Mary Kate Kramer on 02-27-2025 Cholesterol in HDL [Mass/Vol] 67 mg/dL >40 [facility] Comment on above: National Cholesterol Education Program (NCEP) guidelines:<40 mg/dL: Low HDL-cholesterol (major risk factor for CHD)>= 60 mg/dL: High HDL-cholesterol (negative risk factor for CHD)HDL-cholesterol is affected by a number of factors, e.g. smoking, exercise, hormones, sex and age. Serum or plasma cholesterol measurement (mass/volume)Ordered By: Mary Kate Kramer on 02-27-2025 Cholesterol [Mass/Vol] 153 mg/dL <201 [facility] Comment on above: Cholesterol level, D esirable <200 mg/dLBorderline high cholesterol 200-239 mg/dLHigh cholesterol >=240 mg/dLRecommendations of the NCEP Adult Treatment Panel for the following risk-cutoff thresholds for the [place] population. Stress Reporton 02-27-2025 Stress Report [facility] Cardiovascular Services [address] [place] [address] MR#: [id number] Acct: [id number] Name: EMELYN KRAMER Rep #: [id number] : 1950 74 From: Sunny Gonzalez MD Primary Care: Dr. Agata Maradiaga, DO Status: REG CLI Referring Dr: Mari Caal NP [employer] OP-C Sex: F C Stress Test Report Exercise myocardial perfusion stress test. 74-year-old lady with a history of coronary disease Stress protocol: Resting EKG demonstrates normal sinus rhythm with a rate of 60 bpm resting blood pressure is 138/80 mmHg. The patient exercised according to the regular Urban protocol for a total duration of 6 minutes attaining a maximum heart rate of 127 bpm which was 87% of maximum predicted heart rate; the maximum workload was 7.2 metabolic equivalents. At rest there were no ST or T wave changes noted to suggest ischemia and at peak exercise upsloping ST changes only were noted which did not meet the criteria for ischemia. No clinical angina was noted the test was terminated due to the target heart rate being achieved/fatigue. The peak blood pressure was 188/60 mmHg. Rate-pressure product was 21,500. Myocardial perfusion protocol. 11.5 mCi of technetium 99m sestamibi was injected at rest. The patient exercised according to regular Urban protocol for total duration of 6 minutes and at peak exercise 35 point mCi of technetium 99m sestamibi was injected stress images were obtained stress and rest images were reconstructed in comparing the short axis vertical long and horizontal long axis. Gated images were also obtained. Perfusion SPECT analysis: Review of the stress images demonstrate normal uptake of tracer noted in all areas of the myocardium. The resting images similarly demonstrate normal uptake of tracer noted in all areas of the myocardium. No areas of reversibility are noted to suggest ischemia no previous infarct was noted. Gated SPECT analysis: The gated ejection fraction is 75%. Conclusion: Normal exercise myocardial perfusion stress test at a moderate workload Preserved ejection fraction. 02/27/25 1638 Date Sunny Gonzalez MD CC: SONG Caal; Dr. Agata Maradiaga, DO; NIKO Rosales Date Dictated: 02/27/251636 Date Transcribed: 02/27/251636 Powder Blender: CO Signed Normal [facility] Total proteinOrdered By: Orestes Kramer on 02-27-2025 Protein [Mass/Vol] 6.5 g/dL 5.9-8.4 [facility] Triglycerides measurementOrd ered By: Mary Kate Kramer on 02-27-2025 Triglyceride [Mass/Vol] 43 mg/dL <199 [facility] Comment on above: The drugs N-Acetylcy steine and Metamizole may falsely depress this assay. Normal range: <150 mg/dLBorderline High: 150-199 mg/dLHigh: 200-499 mg/dLVery High: >500 mg/dL Cardiology Visit Reporton Cardiology Visit Report [facility] [address] [place] [address]. [address] [place] [address] OFFICE VISIT Date of Service: 01/16/25 MR#: [id number] Acct: [id number] Name: EMELYN KRAMER Rep #: [id number] : 1950 Provider: SONG villaseñor Age/Sex: 74/F Location: [facility] Status: Signed HPI HPI History [...] post ablation in 2000 and 2001 at [facility], hyperlipidemia, GI bleed, hypothyroidism, adrenal sufficiency with [...] 98 Intake Visit Reasons: 1 Y FU Head Of Insight Required: No Is patient in pain?: No Allergies adhesive tape Allergy (Verified 01/16/25 10:02) Rash pravastatin (From Pravachol) Allergy (Verified 01/16/25 10:02) MUSCLE PAIN Prrentv-MZA-SrN Reductase Inhibitor Adverse Reaction (Severe, Verified 01/16/25 [...] 75 mg tablet 75 mg PO DAILY [facility] 01/16/25 Rx tabs metoprolol succinate [...] cap PO DAILY 01/25/23 01/16/25 H istory no.1-[id number] 300 million cell-250 mg capsule (Probiotic and [...] you fallen in the past year?: [facility] Headache Polyp of esophagus Occipital neuralgia of right side Umbilical hernia Wears glasses History of steroid therapy Osteoporosis Frequent UTI Anemia Restless legs Injury of head and neck Injury of back Migrain (more content not included)... [address] 09-07-2023 36 I spoke with pt. We discussed results of MRI brain. Med list shows she is taking Plavix daily. She states she is also taking ASA She says she feels much better since being off Amitriptyline. Scheduled for follow up in November [facility] 36 Name of caller: Massiel sarita Contact phone number: [phone] Relationship to Patient: patient Provider: Dr. May Practice[place] [facility] [place] Chief Complaint/Reason for Call: Pt states that she would like to receive a cb to discuss her MRI results. Please advise. Best time of day caller can be reached:Any Patient advised that office/PCP has 24-48 business hours to return their call: No [address] 09-01-2023 36 I spoke with pt. We discussed her side effects from Amitriptyline. She had been dosing 2 of the Amitriptyline but last night took only 1. She was instructed to dose 1 Amitriptyline tonight and tomorrow and stop Mri is scheduled for 09/05 I will call her on 09/05 to get an update [address] 08-31-2023 36 S: Patient spoke lillian goff [facility] nurse regarding medication problem B: Elavil A: [...] office for review. Please contact pt at [phone] with care plan. Pt instructed to not stop Elavil until hears from the office. Can get side effects if stop abruptly. Patient understands care advice. Instructed to call back with any further questions or concerns. Reason for Disposition Caller has NON-URGENT medicine question about med that PCP or specialist prescribed and triager unable to answer question Protocols used: Medication Question [id number] [facility] 36on 07-31-2023 36 Spoke with patient a nd let her know there are no openings in September. If something does come up we will call and let her know. [facility] 36on 07-28-2023 36 Name of Caller: Jean Claude Contact Reason for Appointment: r/s 11/17/23 appt to around 09/27/23 as noted in visit notes from 07/28 appt. Office Name: [facility] [place] [facility] Absolute lymphocyte countOrd ered By: Flor Randhawa on 07-28-2023 Lymphocytes Auto (Unsp spec) [#/Vol] 3.01 10*3/uL 0.83-4.51 [facility] Basophil percentageOrdered B y: Flor Randhawa on 07-28-2023 Basophils/100 WBC (Bld) 0.9 % 0-1 [facility] Bilirubin [Mass/Vol] 0.20 mg/dL 0.20-1.00 [facility] Comment on above: For patients on eltr ombopag therapy, use of Dimension [place] TBIL is not recommended. Chloride [Moles/Vol] 109 mmol/L 98-107 [facility] Eosinophils/100 WBC (Bld) 1.6 % 0-5 [facility] Glucose [Mass/Vol] 101 mg/dL 74-106 [facility] Comment on above: Fasting Glucose resu lt from 100 to 125 mg/dL suggests IMPAIRED HOMEOSTASIS per A.D.A. criteria. Neutrophils (Bld) [#/Vol] 5.6 10*3/uL 2.0-7.7 [facility] Neutrophils/100 WBC (Bld) 58.5 % 47-70 [facility] Potassium [Moles/Vol] 4.3 mmol/L 3.5-5.1 [facility] Protein [Mass/Vol] 7.1 g/dL 6.4-8.2 [facility] Sodium [Moles/Vol] 140 mmol/L 136-145 [facility] WBC (Bld) [#/Vol] 9.5 10*3/uL 4.4-11.0 [facility] Blood erythrocytes count (nu mber/volume)Ordered By: Flor Randhawa on 07-28-2023 RBC (Bld) [#/Vol] 3.58 10*6/uL 4.2-5.4 [facility] Blood hemoglobin measurement (mass/volume)Ordered By: Flor Randhawa on 07-28-2023 Hemoglobin (Bld) [Mass/Vol] 11.5 g/dL 12.0-15.0 [facility] Blood lymphocytes/100 leukoc ytesOrdered By: Flor Randhawa on 07-28-2023 Lymphocytes/100 WBC (Bld) 31.6 % 19-41 [facility] Blood monocytes/100 leukocyt esOrdered By: Flor Randhawa on 07-28-2023 Monocytes/100 WBC (Bld) 7.1 % 0-10 [facility] Blood platelet mean volumeOr dered By: Flor Randhawa on 07-28-2023 Platelet mean volume (Bld) [Entitic vol] 10.5 fL 6.2-12.0 [facility] Determination of erythrocyte mean corpuscular volume (MCV)Ordered By: Flor Randhawa on 07-28-2023 MCV (RBC) [Entitic vol] 100.3 fL 81-99 [facility] Hematocrit Auto (Bld) [Volum e fraction]Ordered By: Florkhoa Randhawa on 07-28-2023 Hematocrit (Bld) [Volume fraction] 35.9 % 37-47 [facility] Iron measurement (mass/mass) Ordered By: Flor Edis on 07-28-2023 Iron (Unsp spec) [Mass/Mass] 83 ug/dL 50-170 [facility] Laboratory - Chemistry and C hemistry - challengeOrdered By: [facility] on 07-28-2023 ALP [Catalytic activity/Vol] 61 U/L 45-117 [facility] ALT [Catalytic activity/Vol] 20 U/L 13-56 [facility] CO2 [Moles/Vol] 25.0 mmol/L 21.0-32.0 [facility] Cobalamin (Vitamin B12) [Mass/Vol] 551 pg/mL 211-911 [facility] Free T4 [Mass/Vol] 1.03 ng/dL 0.76-1.46 [facility] Globulin (S) [Mass/Vol] 3.3 g/dL 2.2-4.2 [facility] Urea nitrogen/Creatinine [Mass ratio] 28.0 mg/mg 10-20 [facility] Laboratory - Hematology and Cell countsOrdered By: Florkhoa Randhawa on 07-28-2023 Erythrocyte distribution width (RBC) [Entitic vol] 50.0 fL 35.1-43.9 [facility] Erythrocyte distribution width (RBC) [Ratio] 13.6 % 11.6-14.6 [facility] Immature granulocytes/100 WBC (Bld) 0.300 % 0.0-0.9 [facility] Comment on above: IG% - Immature Granu locytes (promyelocytes, myelocytes and metamyelocytes) > 1% indicates that a LEFT SHIFT is Present. MCH (RBC) [Entitic mass] 32.1 pg 27.0-32.0 [facility] Nucleated RBC/100 WBC (Bld) [Ratio] 0 % 0-5 [facility] MCHC Auto (RBC) [Mass/Vol]Or dered By: Florkhoa Randhawa on 07-28-2023 MCHC (RBC) [Mass/Vol] 32.0 g/dL 32-36 [facility] No Panel InformationOrdered By: Flor Randhawa on 07-28-2023 Estimated GFR (MDRD) Amer 87 mL/min >60 [facility] Comment on above: GFR Calc Estimated GFR (MDRD) Non-Af Amer 72 mL/min >60 [facility] Comment on above: Non- GFR Calc Thyroid Stimulating Hormone (TSH) 0.46 uIU/mL 0.358-3.74 [facility] Vitamin D 25-Hydroxy 49.4 ng/mL [facility] Comment on above: Vitamin D 25(OH) Sta tus Range Deficiency <20 ng/mL (50nmol/L) Insufficiency 20 - 30 ng/mL (50 - 75 nmol/L) Sufficiency 30 - 100 ng/mL (75 - 250 nmol/L) Toxicity >100 ng/mL (>250 nmol/L) Office Visiton 07-28-2023 Follow-up visit [id number] Emelyn Kramer 1950 F Date Provider Department Center 07/28/2023 [address]-[facility] None Family History Problem Relation [...] Alive Daughter Alive Son Alive Level of Service:73534 [place] OFFICE/OUTPATIENT NEW LOW MDM 30-44 MINUTES Reason for Visit and Comments: New Patient [542] Headache [52] Normal [facility] [facility] Platelets bldOrdered By: Humaira Randhawa on 07-28-2023 Platelets (Bld) [#/Vol] 387 10*3/uL 150-450 [facility] Progress Noteon 07-28-2023 Progress Note [facility] [address] [place] [address] [facility] [address] Dept: [phone] Dept Loc: [phone] Devan May MD Thank you for your [...] she has had a workup in the [place] area. Unfortunately, I do not have the [...] by mouth., (more content not included)... Normal [facility] Serum or plasma albumin raffaele urement (mass/volume)Ordered By: Florkhoa Randhawa on 07-28-2023 Albumin [Mass/Vol] 3.8 g/dL 3.2-5.0 [facility] Serum or plasma albumin/glob ulin mass ratioOrdered By: [facility] on 07-28-2023 Albumin/Globulin [Mass ratio] 1.2 {ratio} 0.9-2.4 [facility] Serum or plasma calcium raffaele urement (mass/volume)Ordered By: [facility] on 07-28-2023 Calcium [Mass/Vol] 8.6 mg/dL 8.5-10.1 [facility] Serum or plasma creatinine m easurement (mass/volume)Ordered By: Flor Edis on 07-28-2023 Creatinine [Mass/Vol] 0.82 mg/dL 0.55-1.02 [facility] Comment on above: The validity of the calculated GFR & GFRAA in patients over 70 years has not been determined. Clinical correlation is essential. Serum or plasma ferritin aaliyah surement (mass/volume)Ordered By: Florkhoa Randhawa on 07-28-2023 Ferritin [Mass/Vol] 49 ng/mL 8-252 [facility] Serum or plasma urea nitroge n measurement (mass/volume)Ordered By: [facility] on 07-28-2023 Urea nitrogen [Mass/Vol] 23 mg/dL 7-18 [facility] Thin prep Papanicolaou smear with manual screeningOrdered By: [facility] on 07-28-2023 Thin prep Papanicolaou smear with manual screening 13 U/L 15-37 [facility] Thin prep Papanicolaou smear with manual screening 01-23 [facility] 36on 07-27-2023 36 Name of caller: Massiel stein / Ofelia Contact phone number: [phone] Relationship to Patient: Patient and Daughter Provider: [...] hours to return their call: No Normal [facility] CNOVon 03-06-2023 CNOV Office Visit (OBGYWM ) -- WILLIAMSEMELYN ([id number]) 1950 F Date Time Provider Department 03/06/23 8:40 AM ALEX BACK OBGYWM During your visit today, we recorded the [...] L3 SAB0 IAB0 Ectopic0 Multiple0 Live 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 LMP: 09/11/2003, Postmenopausal Age at Menarche: Age at First : Age at Menopause: 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 Comments: Sexual Activity: Yes; Male Contraception: No contraception data on record PAST MEDICAL HISTORY Diagnosis Date Adrenal insufficiency (HCC) Arthritis, multiple joint involvement ATROPHIC VAGINITIS Coronary atherosclerosis of unspecified type of vessel, [place]-sparks or graft 2007 Dr Gonzalez, s/p- stent Degenerative disc disease, cervical Diffuse cystic mastopathy Fibrocystic breast disease Hematuria 2010 benign after evaluation Hyperlipidemia Hypothyroidism Mild dysplasia of cervix 1998 Mitral valve prolapse OSTEOPENIA Other malaise and fatigue PAC (premature atrial contraction) Noted history of PACs Polymyalgia rheumatica (HCC) 1998 atypical, Dr Zuluaga Pure hypercholesterolemia SVT (supraventricular tachycardia) (HCC) 2005 rarely now [...] external genitalia normal, normal Bartholin's glands, urethra, [place]'s glands, no vulvar lesions, no cervical lesions, physiologic discharge present, normal appearing perineal body and perianal region, cystocele 1st degree, rectocele 1st degree, cervical prolapse 1st degree BIMANUAL: uterus normal size, shape and consistency, no adnexal m (more content not included)... Normal [facility] Absolute lymphocyte countOrd ered By: Dr. Moser on 01-11-2023 Lymphocytes Auto (Unsp spec) [#/Vol] 2.94 10*3/uL 0.83-4.51 [facility] Basophil percentageOrdered B y: Dr. Moser on 01-11-2023 Basophils/100 WBC (Bld) 0.9 % 0-1 [facility] Eosinophils/100 WBC (Bld) 2.5 % 0-5 [facility] Neutrophils (Bld) [#/Vol] 5.8 10*3/uL 2.0-7.7 [facility] Neutrophils/100 WBC (Bld) 58.1 % 47-70 [facility] WBC (Bld) [#/Vol] 10.0 10*3/uL 4.4-11.0 [facility] Blood erythrocytes count (nu mber/volume)Ordered By: Dr. Moser on 01-11-2023 RBC (Bld) [#/Vol] 3.61 10*6/uL 4.2-5.4 [facility] Blood hemoglobin measurement (mass/volume)Ordered By: Dr. Moser on 01-11-2023 Hemoglobin (Bld) [Mass/Vol] 11.8 g/dL 12.0-15.0 [facility] Blood lymphocytes/100 leukoc ytesOrdered By: Dr. Moser on 01-11-2023 Lymphocytes/100 WBC (Bld) 29.3 % 19-41 [facility] Blood monocytes/100 leukocyt esOrdered By: Dr. Moser on 01-11-2023 Monocytes/100 WBC (Bld) 8.7 % 0-10 [facility] Blood platelet mean volumeOr dered By: Dr. Moser on 01-11-2023 Platelet mean volume (Bld) [Entitic vol] 10.0 fL 6.2-12.0 [facility] Determination of erythrocyte mean corpuscular volume (MCV)Ordered By: Dr. Moser on 01-11-2023 MCV (RBC) [Entitic vol] 111.1 fL 81-99 [facility] Erythrocyte sedimentation ra teOrdered By: Dr. Moser on 01-11-2023 ESR (Bld) [Velocity] 10 mm/h 0-30 [facility] Hematocrit Auto (Bld) [Volum e fraction]Ordered By: Dr. Moser on 01-11-2023 Hematocrit (Bld) [Volume fraction] 40.1 % 37-47 [facility] Laboratory - Hematology and Cell countsOrdered By: Dr. Msoer on 01-11-2023 Erythrocyte distribution width (RBC) [Entitic vol] 57.8 fL 35.1-43.9 [facility] Erythrocyte distribution width (RBC) [Ratio] 14.2 % 11.6-14.6 [facility] Immature granulocytes/100 WBC (Bld) 0.500 % 0.0-0.9 [facility] Comment on above: IG% - Immature Granu locytes (promyelocytes, myelocytes and metamyelocytes) > 1% indicates that a LEFT SHIFT is Present. MCH (RBC) [Entitic mass] 32.7 pg 27.0-32.0 [facility] Nucleated RBC/100 WBC (Bld) [Ratio] 0.2 % 0-5 [facility] MCHC Auto (RBC) [Mass/Vol]Or dered By: Dr. Moser on 01-11-2023 MCHC (RBC) [Mass/Vol] 29.4 g/dL 32-36 [facility] Platelets bldOrdered By: Dr. Moser on 01-11-2023 Platelets (Bld) [#/Vol] 323 10*3/uL 150-450 [facility] Serum or plasma C reactive p rotein measurement (mass/volume)Ordered By: Dr. Moser on 01-11-2023 CRP [Mass/Vol] 5.82 mg/L 0.0-3.0 [facility] Comment on above: C-Reactive Protein ( CRP) provides useful information for thediagnosis, therapy and monitoring of inflammatory processesand associated diseases. For the evaluation of Relative Riskfor Cardiovascular Disease, a High Sensitivity CRP (HSCRP)should be ordered. Erythrocyte sedimentation ra teOrdered By: Dr. Maradiaga on 01-05-2023 ESR (Bld) [Velocity] 35 mm/h 0-30 [facility] Serum or plasma cortisol aaliyah surement (mass/volume)Ordered By: Dr. Maradiaga on 01-05-2023 Cortisol [Mass/Vol] 10.40 ug/dL 3.44-22.45 [facility] Comment on above: Adult (AM) 5.27 - 22 .45 ug/dL Adult (PM) 3.44 - 16.76 ug/dLPlease note revised CORTISOL reference range effective 2019. Basophil percentageOrdered B y: Dr. Ochoa on 11-29-2022 Chloride [Moles/Vol] 108 mmol/L 98-107 [facility] Glucose [Mass/Vol] 94 mg/dL 74-106 [facility] Potassium [Moles/Vol] 4.2 mmol/L 3.5-5.1 [facility] Sodium [Moles/Vol] 143 mmol/L 136-145 [facility] WBC (Bld) [#/Vol] 9.4 10*3/uL 4.4-11.0 [facility] Blood erythrocytes count (nu mber/volume)Ordered By: Dr. Ochoa on 11-29-2022 RBC (Bld) [#/Vol] 3.64 10*6/uL 4.2-5.4 [facility] Blood hemoglobin measurement (mass/volume)Ordered By: Dr. Ochoa on 11-29-2022 Hemoglobin (Bld) [Mass/Vol] 11.4 g/dL 12.0-15.0 [facility] Blood platelet mean volumeOr dered By: Dr. Ochoa on 11-29-2022 Platelet mean volume (Bld) [Entitic vol] 10.2 fL 6.2-12.0 [facility] Determination of erythrocyte mean corpuscular volume (MCV)Ordered By: Dr. Ochoa on 11-29-2022 MCV (RBC) [Entitic vol] 100.8 fL 81-99 [facility] Hematocrit Auto (Bld) [Volum e fraction]Ordered By: Dr. Ochoa on 11-29-2022 Hematocrit (Bld) [Volume fraction] 36.7 % 37-47 [facility] Laboratory - Chemistry and C hemistry - challengeOrdered By: Dr. Ochoa on 11-29-2022 CO2 [Moles/Vol] 30.0 mmol/L 21.0-32.0 [facility] Urea nitrogen/Creatinine [Mass ratio] 25.6 mg/mg 10-20 [facility] Laboratory - Hematology and Cell countsOrdered By: Dr. Ochoa on 11-29-2022 Erythrocyte distribution width (RBC) [Entitic vol] 50.1 fL 35.1-43.9 [facility] Erythrocyte distribution width (RBC) [Ratio] 13.5 % 11.6-14.6 [facility] MCH (RBC) [Entitic mass] 31.3 pg 27.0-32.0 [facility] MCHC Auto (RBC) [Mass/Vol]Or dered By: Dr. Ochoa on 11-29-2022 MCHC (RBC) [Mass/Vol] 31.1 g/dL 32-36 [facility] No Panel InformationOrdered By: Dr. Ochoa on 11-29-2022 Estimated GFR (MDRD) Amer 93 mL/min >60 [facility] Comment on above: GFR Calc Estimated GFR (MDRD) Non-Af Amer 77 mL/min >60 [facility] Comment on above: Non- GFR Calc No Panel InformationOrdered By: Dr. Hidalgo on 11-29-2022 Thyroid Stimulating Hormone (TSH) 0.66 uIU/mL 0.358-3.74 [facility] Platelets bldOrdered By: Dr. Ochoa on 11-29-2022 Platelets (Bld) [#/Vol] 367 10*3/uL 150-450 [facility] Serum or plasma calcium raffaele urement (mass/volume)Ordered By: Dr. Ocoha on 11-29-2022 Calcium [Mass/Vol] 9.0 mg/dL 8.5-10.1 [facility] Serum or plasma creatinine m easurement (mass/volume)Ordered By: Dr. Ochoa on 11-29-2022 Creatinine [Mass/Vol] 0.78 mg/dL 0.55-1.02 [facility] Comment on above: The validity of the calculated GFR & GFRAA in patients over 70 years has not been determined. Clinical correlation is essential. Serum or plasma urea nitroge n measurement (mass/volume)Ordered By: Dr. Ochoa on 11-29-2022 Urea nitrogen [Mass/Vol] 20 mg/dL 7-18 [facility] Thin prep Papanicolaou smear with manual screeningOrdered By: Dr. Ochoa on 11-29-2022 Thin prep Papanicolaou smear with manual screening 5 5-15 [facility] CNOVon 05-04-2022 CNOV Office Visit (FRFHWS ) -- EMELYN RKAMER ([id number]) 1950 F Date Time Provider Department 05/04/22 2:30 PM WILMER JUAREZ V FRFHWS During your visit today, we recorded the following information about you: fOelia Melissa Selin 05/04/2022 3:34 PM Signed AMB ROOMING INTAKE [...] by mouth twice daily CALCIUM CARBONATE-VITAMIN D [id number] Laila Maxime Mary [birth year]2011 [facility] ([id number]) gabapentin (NEURONTIN) 100 mg capsule 700 mg. [...] (FLONASE) 50 mcg/actuation nasal spray Use 1 [place] in each nostril daily at bedtime. clopidogrel (PLAVIX) 75 mg tablet Take 1 tablet by mouth once daily. nitroglycerin sublingual (NITROQUICK) 0.4 mg SL tablet nitroglycerin Nitroglycerin [Nitrostat] 0.4 MG SL NEEDED PRN For CHEST PAIN July 24, 2018 Active 07-24-2018 [facility] ([id number]) calcium carbonate (CALTRATE 600) 600 mg (1,500 mg) Tab Take 1 tablet by mouth twice daily. CPAP nightly No current facility-administered medications for this visit. MEDICAL HISTORY: PAST MEDICAL HISTORY Diagnosis Date Adrenal insufficiency (HCC) Arthritis, multiple joint involvement ATROPHIC VAGINITIS Coronary atherosclerosis of unspecified type of vessel, [place]-sparks or graft 2007 Dr Gonzalez, s/p- stent Degenerative disc disease, cervical Diffuse cystic mastopathy Fibrocystic breast disease Hematuria 2010 benign after evaluation Hyperlipidemia Hypothyroidism Mild dysplasia of cervix 1998 Mitral valve prolapse OSTEOPENIA Other malaise and fatigue PAC (premature atrial contraction) Noted history of PACs Polymyalgia rheumatica (HCC) 1998 atypical, Dr Zuluaga Pure hypercholesterolemia SVT (supraventricular tachycardia) (HCC) 2006 rarely now since had ablations done (not [...] LEEP before (more content not included)... Normal [facility] XR KNEE 4V AP/PA BOTH+LAT/ME R LTon [...] is noted. IMPRESSION: Stable TKA. Joint effusion Powder Blender: FILOMENA Transcribe Date/Time: May 04 2022 2:55P Dictated by : DEVAN HANKINS MD This examination was interpreted and the report reviewed and electronically signed by: DEVAN HANKINS MD on May 04 2022 2:56PM EST [id number] Normal [facility] XR KNEE GENERAL 4V AP BOTH/P A BOTH/LAT/MERC LEFTon 05-04-2022 [facility] Basophil percentageon 2021 Bilirubin [Mass/Vol] 0.40 mg/dL 0.20-1.00 [facility] Work Phone: Comment on above: For patients on eltr ombopag therapy, use of Dimension [place] TBIL is not recommended. Cholesterol [Mass/Vol] 246 mg/dL <200 [facility] Work Phone: Comment on above: <200 mg/dL Desirable 200-240 mg/dL Borderline >240 mg/dL High Risk Protein [Mass/Vol] 6.8 g/dL 6.4-8.2 [facility] Work Phone: Triglyceride [Mass/Vol] 65 mg/dL <199 [facility] Work Phone: Comment on above: The drugs N-Acetylcy steine and Metamizole may falsely depress this assay.Serum Triglycerides Reference Interval Normal <150 mg/dL Borderline high 150 - 199 mg/dL High 200 - 499 mg/dL Very High > or = 500 mg/dL Direct bilirubinon Bilirubin.direct [Mass/Vol] 0.09 mg/dL 0.00-0.30 [facility] Work Phone: Laboratory - Chemistry and C hemistry - challengeon 04-30-2022 ALP [Catalytic activity/Vol] 85 U/L 45-117 [facility] Work Phone: ALT [Catalytic activity/Vol] 21 U/L 13-56 [facility] Work Phone: Globulin (S) [Mass/Vol] 3.4 g/dL 2.2-4.2 [facility] Work Phone: Serum or plasma albumin raffaele urement (mass/volume)on 04-30-2022 Albumin [Mass/Vol] 3.4 g/dL 3.2-5.0 [facility] Work Phone: Serum or plasma cholesterol in HDL measurement (mass/volume)on 04-30-2022 Cholesterol in HDL [Mass/Vol] 67 mg/dL >40 [facility] Work Phone: Comment on above: The drugs N-Acetylcy steine and Metamizole may falsely depress this assay. Reference Range HDL <40 mg/dL Low HDL Cholesterol HDL >or= 60 mg/dL High HDL Cholesterol Serum or plasma cholesterol in VLDL measurement (mass/volume)on 04-30-2022 Cholesterol in VLDL [Mass/Vol] 13 mg/dL 5-40 [facility] Work Phone: Serum or plasma low density lipoprotein (LDL) cholesterol measurement (mass/volume)on 04-30-2022 Cholesterol in LDL [Mass/Vol] 166 mg/dL 0-130 [facility] Work Phone: Thin prep Papanicolaou smear with manual screeningon 04-30-2022 Thin prep Papanicolaou smear with manual screening 20 U/L 15-37 [facility] Work Phone: Laboratory - Microbiology an d Antimicrobial susceptibilityon 03-25-2022 SARS-CoV-2 (COVID-19) RNA DILLON+probe Ql (Unsp spec) Not detected [facility] Work Phone: No Panel Informationon 03-25 Influenza Types A,B Rapid (Clinic) Not detected [facility] Work Phone: US EXTREMITY NON-VASCULAR RI Catarino 02-17-2022 US EXTREMITY NON-VASCULAR RIGHT ORIGINAL EXAMINATION: [...] Provider: JASKARAN SYLVESTER [facility] Basophil percentageon 2021 Basophil percentage < 0.9 mg/dL 0.55-1.02 [facility] Work Phone: No Panel Informationon 01-25 Bedside Estimated GFR (eGFR) > 60.0000 mL/min >60 [facility] Work Phone: Basophil percentageon 04-07- 2022 Bilirubin [Mass/Vol] 0.30 mg/dL 0.20-1.00 [facility] Work Phone: Comment on above: For patients on eltr ombopag therapy, use of Dimension [place] TBIL is not recommended. Chloride [Moles/Vol] 107 mmol/L 98-107 [facility] Work Phone: Glucose [Mass/Vol] 88 mg/dL 74-106 [facility] Work Phone: Potassium [Moles/Vol] 3.9 mmol/L 3.5-5.1 [facility] Work Phone: Protein [Mass/Vol] 7.0 g/dL 6.4-8.2 [facility] Work Phone: Sodium [Moles/Vol] 141 mmol/L 136-145 [facility] Work Phone: Erythrocyte sedimentation ra violet 12-16-2021 ESR (Bld) [Velocity] 20 mm/h 0-30 [facility] Work Phone: Laboratory - Chemistry and C hemistry - challengeon 12-16-2021 ALP [Catalytic activity/Vol] 77 U/L 45-117 [facility] Work Phone: ALT [Catalytic activity/Vol] 19 U/L 13-56 [facility] Work Phone: CK [Catalytic activity/Vol] 79 U/L 26-192 [facility] Work Phone: CO2 [Moles/Vol] 29.0 mmol/L 21.0-32.0 [facility] Work Phone: Free T4 [Mass/Vol] 1.15 ng/dL 0.76-1.46 [facility] Work Phone: Globulin (S) [Mass/Vol] 3.5 g/dL 2.2-4.2 [facility] Work Phone: Urea nitrogen/Creatinine [Mass ratio] 20.9 mg/mg 10-20 [facility] Work Phone: No Panel Informationon 12-16 Adrenocorticotropic Hormone 11.1 pg/mL 7.2-63.3 [facility] Work Phone: Comment on above: ACTH reference inter fran for samples collected between 7 and10 AM.Performed at: [facility] [id number] Director: Angel Herrera PhD, Phone: [phone] Estimated GFR (MDRD) Amer 83 mL/min >60 [facility] Work Phone: Comment on above: GFR Calc Estimated GFR (MDRD) Non-Af Amer 69 mL/min >60 [facility] Work Phone: Comment on above: Non- GFR Calc Thyroid Stimulating Hormone (TSH) 1.45 uIU/mL 0.358-3.74 [facility] Work Phone: Vitamin D 25-Hydroxy 60.5 ng/mL [facility] Work Phone: Comment on above: Vitamin D 25(OH) Sta tus Range Deficiency <20 ng/mL (50nmol/L) Insufficiency 20 - 30 ng/mL (50 - 75 nmol/L) Sufficiency 30 - 100 ng/mL (75 - 250 nmol/L) Toxicity >100 ng/mL (>250 nmol/L) Serum or plasma albumin raffaele urement (mass/volume)on 12-16-2021 Albumin [Mass/Vol] 3.5 g/dL 3.2-5.0 [facility] Work Phone: Serum or plasma albumin/glob ulin mass ratioon 12-16-2021 Albumin/Globulin [Mass ratio] 1.0 {ratio} 0.9-2.4 [facility] Work Phone: Serum or plasma calcium raffaele urement (mass/volume)on 12-16-2021 Calcium [Mass/Vol] 8.7 mg/dL 8.5-10.1 [facility] Work Phone: Serum or plasma creatinine m easurement (mass/volume)on 12-16-2021 Creatinine [Mass/Vol] 0.86 mg/dL 0.55-1.02 [facility] Work Phone: Comment on above: The validity of the calculated GFR & GFRAA in patients over 70 years has not been determined. Clinical correlation is essential. Serum or plasma urea nitroge n measurement (mass/volume)on 12-16-2021 Urea nitrogen [Mass/Vol] 18 mg/dL 7-18 [facility] Work Phone: Thin prep Papanicolaou smear with manual screeningon 12-16-2021 Thin prep Papanicolaou smear with manual screening 11 U/L 15-37 [facility] Work Phone: Thin prep Papanicolaou smear with manual screening 5 5-15 [facility] Work Phone: Absolute lymphocyte counton 10-12-2021 Lymphocytes Auto (Unsp spec) [#/Vol] 3.78 10*3/uL 0.83-4.51 [facility] Work Phone: Basophil percentageon 2021 Basophils/100 WBC (Bld) 0.8 % 0-1 [facility] Work Phone: Eosinophils/100 WBC (Bld) 2.1 % 0-5 [facility] Work Phone: Neutrophils (Bld) [#/Vol] 6.8 10*3/uL 2.0-7.7 [facility] Work Phone: Neutrophils/100 WBC (Bld) 57.5 % 47-70 [facility] Work Phone: WBC (Bld) [#/Vol] 11.8 10*3/uL 4.4-11.0 [facility] Work Phone: Blood erythrocytes count (nu mber/volume)on 10-12-2021 RBC (Bld) [#/Vol] 3.99 10*6/uL 4.2-5.4 [facility] Work Phone: Blood hemoglobin measurement (mass/volume)on 10-12-2021 Hemoglobin (Bld) [Mass/Vol] 12.3 g/dL 12.0-15.0 [facility] Work Phone: Blood lymphocytes/100 leukoc yteson 10-12-2021 Lymphocytes/100 WBC (Bld) 32.1 % 19-41 [facility] Work Phone: Blood monocytes/100 leukocyt eson 10-12-2021 Monocytes/100 WBC (Bld) 7.0 % 0-10 [facility] Work Phone: Blood platelet mean volumeon 10-12-2021 Platelet mean volume (Bld) [Entitic vol] 10.2 fL 6.2-12.0 [facility] Work Phone: Determination of erythrocyte mean corpuscular volume (MCV)on 10-12-2021 MCV (RBC) [Entitic vol] 95.7 fL 81-99 [facility] Work Phone: Hematocrit Auto (Bld) [Volum e fraction]on 10-12-2021 Hematocrit (Bld) [Volume fraction] 38.2 % 37-47 [facility] Work Phone: Iron measurement (mass/mass) on 10-12-2021 Iron (Unsp spec) [Mass/Mass] 83 ug/dL 50-170 [facility] Work Phone: Laboratory - Hematology and Cell countson 10-12-2021 Erythrocyte distribution width (RBC) [Entitic vol] 49.8 fL 35.1-43.9 [facility] Work Phone: Erythrocyte distribution width (RBC) [Ratio] 14.3 % 11.6-14.6 [facility] Work Phone: Immature granulocytes/100 WBC (Bld) 0.500 % 0.0-0.9 [facility] Work Phone: Comment on above: IG% - Immature Granu locytes (promyelocytes, myelocytes and metamyelocytes) > 1% indicates that a LEFT SHIFT is Present. MCH (RBC) [Entitic mass] 30.8 pg 27.0-32.0 [facility] Work Phone: Nucleated RBC/100 WBC (Bld) [Ratio] 0 % 0-5 [facility] Work Phone: MCHC Auto (RBC) [Mass/Vol]on 10-12-2021 MCHC (RBC) [Mass/Vol] 32.2 g/dL 32-36 [facility] Work Phone: Platelets bldon 10-12-2021 Platelets (Bld) [#/Vol] 404 10*3/uL 150-450 [facility] Work Phone: Serum or plasma ferritin aaliyah surement (mass/volume)on 10-12-2021 Ferritin [Mass/Vol] 41 ng/mL 8-252 [facility] Work Phone: Basic Metabolic Panelon 11-09 Anion gap [Moles/Vol] 9.00 mmol/L Normal 8.00-16.00 [facility] Comment on above: Order Comment: Items in this order include: Basic Metabolic Panel , Free T4, TSH, ,Testing Performed By: [facility] [address] [place] [address] Dr. Fareed Davis, Trimmer Sawyer Performed By: #### C [id number], [id number] #### [facility] [address] [place] [address] [place] [address] B/C Ratio 27.1 Ratio Normal [facility] Comment on above: Order Comment: Items in this order include: Basic Metabolic Panel , Free T4, TSH, ,Testing Performed By: [facility] [address] [place] [address]. [place] [address] Dr. Fareed Davis, Trimmer Sawyer Performed By: #### C [id number], [id number] #### [facility] [facility] [place] [address] Calcium [Mass/Vol] 9.5 mg/dL Normal 8.5-10.5 [facility] Comment on above: Order Comment: Items in this order include: Basic Metabolic Panel , Free T4, TSH, ,Testing Performed By: [facility] [address] [place] [id number] [address] Fareed Davis, Trimmer Sawyer Performed By: #### C [id number], [id number] #### [facility] [address] [facility] [place] [address] Chloride [Moles/Vol] 104 mmol/L Normal 98-107 [facility] [facility] Comment on above: Order Comment: Items in this order include: Basic Metabolic Panel , Free T4, TSH, ,Testing Performed By: [facility] [address] [place] [address]. [place] [address] Dr. Fareed Davis, Trimmer Sawyer Performed By: #### C 3132, C3133 #### [facility] [address] [place] [address] [place] [address] CO2 [Moles/Vol] 28.0 mmol/L Normal 21.0-32.0 [facility] Comment on above: Order Comment: Items in this order include: Basic Metabolic Panel , Free T4, TSH, ,Testing Performed By: [facility] [address] [place] [address]. [place] [address] Dr. Fareed Davis, Trimmer Sawyer Performed By: #### C 3132, C3133 #### [facility] [address] [place] [address] [address] [place] [address] Creatinine [Mass/Vol] 0.7 mg/dL Normal 0.1-1.2 [facility] Comment on above: Order Comment: Items in this order include: Basic Metabolic Panel , Free T4, TSH, ,Testing Performed By: [facility] [address] [place] [address]. [place] [address] Dr. Fareed Davis, Trimmer Sawyer Performed By: #### C 3132, C3133 #### [facility] [address] [place] [address] [place] [address] GFR/1.73 sq M.predicted MDRD (S/P/Bld) [Vol rate/Area] 83 mL/min per 1.73 Normal >60 [facility] Comment on above: Order Comment: Items in this order include: Basic Metabolic Panel , Free T4, TSH, ,Testing Performed By: [facility] [address] [facility] [place] [address] Dr. Fareed Davis, Trimmer Sawyer Result Comment: The GFR estimate is not adjusted for race. If the patient's race is -E[place], the GFR estimate must be multiplied by a factor of 1.21. Performed By: #### C 3132, C3133 #### [facility] [address] [place] [address] Glucose [Mass/Vol] 76 mg/dL Normal 74-100 [facility] Comment on above: Order Comment: Items in this order include: Basic Metabolic Panel , Free T4, TSH, ,Testing Performed By: [facility] [address] [place] [address]. [place] [address] Dr. Fareed Davis, Trimmer Sawyer Performed By: #### C 3132, C3133 #### [facility] [address] [place] [address] [address] [place] [address] Potassium [Moles/Vol] 4.2 mmol/L Normal 3.5-5.3 [facility] Comment on above: Order Comment: Items in this order include: Basic Metabolic Panel , Free T4, TSH, ,Testing Performed By: [facility] [address] [place] [address]. [place] [address] Dr. Fareed Davis, Trimmer Sawyer Performed By: #### C 3132, C3133 #### [facility] [address] [facility] [address] [place] [address] Sodium [Moles/Vol] 141 mmol/L Normal 135-145 [facility] Comment on above: Order Comment: Items in this order include: Basic Metabolic Panel , Free T4, TSH, ,Testing Performed By: [facility] [facility] [place] [address] Dr. Fareed Davis, Trimmer Sawyer Performed By: #### C 3132, C3133 #### [facility] [address] [place] [address] Urea nitrogen [Mass/Vol] 19 mg/dL Normal 6-22 [facility] Comment on above: Order Comment: Items in this order include: Basic Metabolic Panel , Free T4, TSH, ,Testing Performed By: [facility] [address] [place] [address]. [place] [address] Dr. Fareed Davis, Trimmer Sawyer Performed By: #### C 3132, C3133 #### [facility] [address] [place] [address] Free T4on 11-19-2019 Free T4 [Mass/Vol] 1.4 ng/dL Normal 0.7-1.8 [facility] Comment on above: Order Comment: Items in this order include: Basic Metabolic Panel , Free T4, TSH, ,Testing Performed By: [facility] [address] [place] [address]. [place] [address] Dr. Fareed Davis, Trimmer Sawyer Performed By: #### C 3132, C3133 #### [facility] [address] [place] [address] [place] [address] TSHon 11-19-2019 TSH Qn 0.88 MIU/mL Normal 0.50-6.00 [facility] Comment on above: Order Comment: Items in this order include: Basic Metabolic Panel , Free T4, TSH, ,Testing Performed By: [facility] [address] [place] [address]. [place] [address] Dr. Fareed Davis, Trimmer Sawyer Performed By: #### C 3132, C3133 #### [facility] [address] [place] [address] Suite - [place] [id number] [facility]Hon 05-30-2019 ACTH 29.5 pg/ml Normal 7.4-64.3 [facility] Comment on above: Order Comment: add o n Performed By: #### C 4138 #### [facility] [address] [place] [address] [place] [address] Order Comment: Items in this order include: ACTH Testing Performed By: [facility] [address] [place] [address]. [place] [address] Dr. Fareed Davis, Trimmer Sawyer Items in this order include: ACTH Testing Performed By: [facility] [address] [place] [address]. [place] [address] Dr. Fareed Davis, Trimmer Sawyer add on Cortisol (1 Hour)on 05-30-20 19 Cortisol (1 Hour) 17.80 ug/dL Normal [facility] Comment on above: Order Comment: Items in this order include: Cortisol (1 Hour), , Testing Performed By: [facility] [address] [place] [address]. [place] [id number] Dr. Fareed Davis, Trimmer Sawyer add on Result Comment: Trever isol AM Normal Range: 10.4-26.4 ug/dL Cortisol PM Normal Range: 4.3-15.0 ug/dL Performed By: #### C 3133 #### [facility] [address] [place] [address] [place] [address] Cortisol (Baseline)on 2018 Cortisol (Baseline) 9.40 ug/dL Normal [facility] Comment on above: Order Comment: Items in this order include: Cortisol (Baseline) , , Testing Performed By: [facility] [address] [place] [address]. [place] [address] Dr. Fareed Davis, Trimmer Sawyer Result Comment: Trever isol AM Normal Range: 10.4-26.4 ug/dL Cortisol PM Normal Range: 4.3-15.0 ug/dL Performed By: #### C 3132 #### [facility] [address] [place] [address] [place] [address] Free T4on 05-30-2019 Free T4 [Mass/Vol] 1.4 ng/dL Normal 0.7-1.8 [facility] Comment on above: Order Comment: Items in this order include: Free T4, TSH, , Testing Performed By: [facility] [address] [place] [address]. [place] [address] Dr. Fareed Davis, Trimmer Sawyer Performed By: #### C 400, C408 #### [facility] [address] [place] [address] [place] [address] TSHon 05-30-2019 TSH Qn 2.68 MIU/mL Normal 0.50-6.00 [facility] Comment on above: Order Comment: Items in this order include: Free T4, TSH, , Testing Performed By: [facility] [address] [place] [address]. [place] [address] Dr. Fareed Davis, Trimmer Sawyer Performed By: #### C 400, C408 #### [facility] [address] [place] [address] [address] [place] [address] [facility]Hon 04-12-2019 ACTH 14.4 pg/ml Normal 7.4-64.3 [facility] Comment on above: Performed By: #### C 4138 #### [facility] [address] [place] [address] [address] [place] [id number] Order Comment: Items in this order include: ACTH Testing Performed By: [facility] [address] [place] [address]. [place] [address] Dr. Fareed Davis, Trimmer Sawyer Items in this order include: ACTH Testing Performed By: [facility] [address] [place] [address]. [place] [id number] Dr. Fareed Davis, Trimmer Sawyer Cortisol (1 Hour)on 04-12-20 19 Cortisol (1 Hour) 14.40 ug/dL Normal [facility] Comment on above: Order Comment: Items in this order include: Cortisol (Baseline) , , , Cortisol (1 Hour) Testing Performed By: [facility] [address] [place] [address]. [place] [address] Dr. Fareed Davis, Trimmer Sawyer Items in this order include: Cortisol (Baseline) , , , Cortisol (1 Hour) Testing Performed By: [facility] [address] [place] [address]. [place] [address] Dr. Fareed Davis, Trimmer Sawyer Result Comment: Trever isol AM Normal Range: 10.4-26.4 ug/dL Cortisol PM Normal Range: 4.3-15.0 ug/dL Performed By: #### C 3132, C3133 #### [facility] [address] [place] [address] [address] [place] [address] Cortisol (Baseline)on 2018 Cortisol (Baseline) 4.60 ug/dL Normal [facility] Comment on above: Result Comment: Trever isol AM Normal Range: 10.4-26.4 ug/dL Cortisol PM Normal Range: 4.3-15.0 ug/dL Performed By: #### C 3132, C3133 #### [facility] [address] [facility] [address] [place] [address] PROGRESSon 12-14-2017 PROGRESS HNO ID: [id number] thor: Annelise (Ct) BAILEE Guerreroervice: (none)Author Type: Clinical TechnicianType: Progress NotesFiled: 12/14/2017 9:54 AMNote Text:NAME:Emelyn ZaragozaTE: December 14, 2017CCF#: [id number] X-Ray and Lower Extremity X-Ray(s): Knee, AP / Lat / MerchantBilateral and Wt. Bearing COMPLETEDTECH ID SIGN: FABIOLA DALE [facility] XR KNEE 3V AP/LAT/ARNOLD BILon 12-14-2017 XR KNEE 3V AP/LAT/ARNOLD HIREN * * *Final Report* * *DATE OF EXAM: Dec 14 2017 8:43AM DIDI [id number] - XR KNEE 3V AP/LAT/ARNOLD HIREN / REASON: [id number], unspecified * * * * Physician Interpretation [...] bilateral hip and knee prostheses without interval complication.Machinery Mechanic ist: PSCB Transcribe Date/Time: Dec 14 2017 9:09ADictated by : KARON RODRÍGUEZ MDThialison examination was interpreted and the report reviewed and electronically signed by: KARON RODRÍGUEZ MD on Dec 14 2017 9:11AM [id number] PELVIS 1V APon 12-14-2017 XR PELVIS 1V AP * * *Final Report* * *DATE OF EXAM: Dec 14 2017 8:43AM DIDI [id number] - XR PELVIS 1V AP / REASON: [id number], unspecified * * * * Physician Interpretation [...] bilateral hip and knee prostheses without interval complication.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 Mechanic 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: PSCB Transcribe Date/Time: Dec 14 2017 9:09ADictated by : KARON RODRÍGUEZ MDThis examination was interpreted and the report reviewed and electronically signed by: KARON RODRÍGUEZ MD on Dec 14 2017 9:11AM [id number] Office Visiton 07-27-2017 Documentation of current medications (procedure) Done Invalid Interpretation Code [facility] Work Phone: Fall risk assessment No Invalid Interpretation Code [facility] Work Phone: Lab Report: Lipid Profileon 07-24-2017 Cholesterol 254 mg/dL High 200 [facility] Work Phone: HDL Cholesterol 71 mg/dL Invalid Interpretation Code [facility] Work Phone: LDL Cholesterol 166 mg/dL High 0-130 [facility] Work Phone: Triglyceride 85 mg/dL Invalid Interpretation Code [facility] Work Phone: very low density lipoproteins 17 mg/dL Invalid Interpretation Code 5-40 [facility] Work Phone: Lab Report: Liver Profileon 07-24-2017 Alanine aminotransferase (ALT) 25 U/L Invalid Interpretation Code 12-78 [facility] Work Phone: Albumin 3.5 g/dL Invalid Interpretation Code 3.4-5.0 [facility] Work Phone: Alkaline phosphatase (ALP) 73 U/L Invalid Interpretation Code 45-117 [facility] Work Phone: Aspartate aminotransferase (AST) 18 U/L Invalid Interpretation Code 15-37 [facility] Work Phone: Bilirubin (direct) 0.07 mg/dL Invalid Interpretation Code 0.00-0.30 [facility] Work Phone: Bilirubin (total) 0.30 mg/dL Invalid Interpretation Code 0.20-1.00 [facility] Work Phone: Globulin 3.7 g/dL Invalid Interpretation Code 2.2-4.2 [facility] Work Phone: Protein 7.2 g/dL Invalid Interpretation Code 6.4-8.2 [facility] Work Phone: Clinical Lists Update: 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 Invalid Interpretation Code [facility] Work Phone: Office Visiton 06-14-2016 Documentation of current medications (procedure) Done Invalid Interpretation Code [facility] Phone: Lab Report: Basic Metabolic Profile (BMP)on 06-10-2016 Anion gap 7 mmol/L Invalid Interpretation Code 5-15 [facility] Work Phone: BUN/Creatinine Ratio 27.5 RATIO High 10-20 [facility] Work Phone: Calcium 8.6 mg/dL Invalid Interpretation Code 8.5-10.1 [facility] Work Phone: Chloride 106 mmol/L Invalid Interpretation Code 98-107 [facility] Work Phone: CO2 27.0 mmol/L Invalid Interpretation Code 21.0-32.0 [facility] Work Phone: Creatinine 0.73 mg/dL Invalid Interpretation Code 0.55-1.20 [facility] Work Phone: Creatinine 51.81 mL/min Invalid Interpretation Code [facility] Work Phone: eGFR (non-black) 103 mL/min/{1.73_m2} Invalid Interpretation Code >60 [facility] Work Phone: eGFR (non-black) 85 mL/min/{1.73_m2} Invalid Interpretation Code >60 [facility] Work Phone: Glucose mass conc 131 mg/dL High 70-110 [facility] Work Phone: Potassium molar conc 3.7 mmol/L Invalid Interpretation Code 3.5-5.1 [facility] Work Phone: Sodium 140 mmol/L Invalid Interpretation Code 136-145 [facility] Work Phone: Urea nitrogen 20 mg/dL High 7-18 [facility] Work Phone: Lab Report: CBC-Complete Blo od Cnt No Diffon 06-10-2016 Erythrocyte distribution width Auto Ratio (RBC) 13.8 % Invalid Interpretation Code 11.6-14.6 [facility] Work Phone: Erythrocytes (RBC) 3.70 10*6/uL Low 4.2-5.[address] [facility] Work Phone: Hematocrit (HCT) 34.1 % Low 37-47 [facility] Work Phone: Hemoglobin mass conc (Bld) 10.7 g/dL Low 12.0-15.0 [facility] Work Phone: MCH 28.9 pg Invalid Interpretation Code 27.0-32.0 [facility] Work Phone: MCHC mass conc (RBC) 31.4 G/GL Low 32-[address] [facility] Work Phone: MCV 92.2 fL Invalid Interpretation Code 81-99 [facility] Work Phone: Platelets 324 10*3/mm3 Invalid Interpretation Code 150-450 [facility] Work Phone: PMV by Katty 9.6 fL Invalid Interpretation Code 6.2-12.0 [facility] Work Phone: RDW SD 46.3 fL High 35.1-43.9 [facility] Work Phone: WBC (Leukocytes) 9.0 10*3/uL Invalid Interpretation Code 4.4-11.0 [facility] Work Phone: Lab Report: Prealbuminon Prealbumin 21.7 mg/dL Invalid Interpretation Code 20.0-40.0 [facility] Work Phone: Lab Report: Partial Thrombop last Timeon 06-08-2016 aPTT 26.0 s Invalid Interpretation Code 24.1-36.2 [facility] Work Phone: Lab Report: Prothrombin Time w/INRon 06-08-2016 INR Coag RelTime (PPP) 1.0 {INR} Invalid Interpretation Code [facility] Work Phone: Prothrombin time (PT) Coag time (PPP) 12.5 s Invalid Interpretation Code 11.7-14.9 [facility] Work Phone: Replaced Document: Ladonna Mareson 06-08-2016 EKG QRS axis 2 deg Invalid Interpretation Code [facility] Work Phone: Interpretation Sinus Rhythm - occas ional ectopic ventricular beat WITHIN NORMAL LIMITS Invalid Interpretation Code [facility] Work Phone: P White 51 deg Invalid Interpretation Code [facility] Work Phone: SD Interval 150 ms Invalid Interpretation Code [facility] Work Phone: Pulse (Heart Rate) 69 /min Invalid Interpretation Code [facility] Work Phone: QRS Duration 80 ms Invalid Interpretation Code [facility] Work Phone: QT Interval new path ms Invalid Interpretation Code [facility] Work Phone: T White 27 deg Invalid Interpretation Code [facility] Work Phone: Append: evaluation traumatic contusion left lateral legon 05-25-2016 Tobacco use CPHS Never smoker Invalid Interpretation Code [facility] Work Phone: Office Visit: evaluation tra umatic contusion left lateral legon 05-25-2016 Tobacco smoking status NHIS Never Invalid Interpretation Code [facility] Work Phone: Lab Report: Lipid Profileon 03-17-2016 Cholesterol 243 mg/dL High 200 [facility] Work Phone: HDL Cholesterol 75 mg/dL Invalid Interpretation Code [facility] Work Phone: LDL Cholesterol 155 mg/dL High 0-130 [facility] Work Phone: Triglyceride 65 mg/dL Invalid Interpretation Code [facility] Work Phone: very low density lipoproteins 13 mg/dL Invalid Interpretation Code 5-40 [facility] Work Phone: Lab Report: Liver Profileon 03-17-2016 Alanine aminotransferase (ALT) 18 U/L Invalid Interpretation Code 12-78 [facility] Work Phone: Albumin 3.4 g/dL Invalid Interpretation Code 3.4-5.0 [facility] Work Phone: Alkaline phosphatase (ALP) 79 U/L Invalid Interpretation Code 50-136 [facility] Work Phone: Aspartate aminotransferase (AST) 15 U/L Invalid Interpretation Code 15-37 [facility] Work Phone: Bilirubin (direct) 0.10 mg/dL Invalid Interpretation Code 0.00-0.30 [facility] Work Phone: Bilirubin (total) 0.40 mg/dL Invalid Interpretation Code 0.20-1.00 [facility] Work Phone: Globulin 3.6 g/dL High 2.3-3.5 [facility] Work Phone: Protein 7.0 g/dL Invalid Interpretation Code 6.4-8.2 [facility] Work Phone: Lab Report: T4 Free Directon 03-17-2016 Thyroxine (T4) free 1.11 ng/dL Invalid Interpretation Code 0.76-1.46 [facility] Work Phone: Lab Report: Thyroid Stim Hor go (TSH)on 03-17-2016 Thyroid stimulating hormone (TSH) 2.67 u[iU]/mL Invalid Interpretation Code 0.358-3.74 [facility] Work Phone: Lab Report: (P) Urinalysis, Completeon 01-14-2016 Bilirubin Ql (U) Negative Invalid Interpretation Code Negative [facility] Work Phone: NITRITE UR Negative Invalid Interpretation Code Negative [facility] Work Phone: OCCULT BLOOD-UR 10 High Negative [facility] Work Phone: specific gravity, urine 1.005 Invalid Interpretation Code 1.002-1.03 0 [facility] Work Phone: Urine, clarity Clear Invalid Interpretation Code Clear [facility] Work Phone: Urine, color Straw Invalid Interpretation Code Yellow [facility] Work Phone: Urine, glucose presence Normal mg/dl Invalid Interpretation Code Normal [facility] Work Phone: Urine, ketones presence Negative Invalid Interpretation Code Negative [facility] Work Phone: Urine, leukocyte esterase presence 500 High Negative [facility] Work Phone: Urine, pH 7.0 [pH] Invalid Interpretation Code 5.0 - 8.0 [facility] Work Phone: Urine, protein Negative Invalid Interpretation Code Negative [facility] Work Phone: UROBILI Normal mg/dl Invalid Interpretation Code Normal [facility] Work Phone: Lab Report: CRPon 01-14-2016 C reactive protein (CRP) 2.14 mg/dL High Units converted. See lab report for original value. [facility] Work Phone: Lab Report: Erythrocyte Sed Rateon 01-14-2016 Erythrocyte sedimentation rate 29 mm/h Invalid Interpretation Code 0-30 [facility] Work Phone: Lab Report: Fibrinogenon Fibrinogen in platelet poor plasma 448 mg/dL High 203-444 [facility] Work Phone: Lab Report: Urinalysis, Comp leteon 01-14-2016 Urine, bacteria in sediment 0 /[HPF] Invalid Interpretation Code None Seen [facility] Work Phone: Urine, epithelial cells in sediment 0 SEEN Invalid Interpretation Code 5-10 [facility] Work Phone: Urine, erythrocytes in sediment by volume 0 SEEN Invalid Interpretation Code 0-5 [facility] Work Phone: Urine, mucus presence in sediment 0 SEEN Invalid Interpretation Code [facility] Work Phone: WBC (Leukocytes) 5-10 SEEN Invalid Interpretation Code 0-5 [facility] Work Phone: Replaced Document: (P) CBC W /Diff, Automatedon 01-14-2016 Absolute Neut 8.3 X10 3/UL High 2.0-7.7 [facility] Work Phone: Basophils/100 WBC Auto (Bld) 0.5 % Invalid Interpretation Code 0-1 [facility] Work Phone: Eosinophils/100 leukocytes 1.5 % Invalid Interpretation Code 0-5 [facility] Work Phone: Immature granulocytes/100 WBC (Bld) 0.100 % Invalid Interpretation Code 0.0-0.9 [facility] Work Phone: Lymphocytes 2.11 X10 3/UL Invalid Interpretation Code 0.83-4.51 [facility] Work Phone: Lymphocytes/100 leukocytes 19.0 % Invalid Interpretation Code 19-41 [facility] Work Phone: Monocytes/100 leukocytes 4.1 % Invalid Interpretation Code 0-10 [facility] Work Phone: Neutrophils/100 WBC Auto (Bld) 74.8 % High 47-70 [facility] Work Phone: Lab Report: T4 Total, Thyrox inon 06-12-2015 Thyroxine (T4) 12.3 ug/dL Invalid Interpretation Code 4.8-13.9 [facility] Work Phone: Office Visiton 12-18-2014 cardiac risk group C Invalid Interpretation Code [facility] Work Phone: General cardiovascular disease 10Y risk [#] [place].D'Agostin o N/A Invalid Interpretation Code [facility] Work Phone: Clinical Lists Update: 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 08-28-2014 Cholesterol to HDL Ratio 3.08 {ratio} Invalid Interpretation Code [facility] Work Phone: LDL to HDL Ratio 1.93 Invalid Interpretation Code [facility] Work Phone: Clinical Lists Update: 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 10-20-2012 basophils as percent of blood leukocytes, manual count 0.7 % Invalid Interpretation Code [facility] Work Phone: eosinophils as percent of blood leukocytes, manual count 3.2 % Invalid Interpretation Code [facility] Work Phone: neutrophils, band form as percent of blood leukocytes, manual count 64.9 % Invalid Interpretation Code [facility] Work Phone: Culture, urine Bacteria identified Cx Nom (U) Escherichia coli [facility] Work Phone: Vital Signs Date Time Vital Sign Value Performing Clinician Dianelys gayle 04-15-2025 10:02-0400 Body height 165.[address] Agata Maradiaga DO Work Phone: [facility] 04-11-2025 10:44-0400 Body height 165.[address] Agata Maradiaga DO Work Phone: [facility] 04-11-2025 10:44-0400 Body mass index (BMI) [Ratio] 27.3 kg/m2 Dr. Agata Maradiaga DO Work Phone: [facility] 04-11-2025 10:44-0400 Body weight 74.[address] Agata Maradiaga DO Work Phone: [facility] 04-11-2025 10:44-0400 Diastolic blood pressure 62 mm[Hg] Dr. Agata Maradiaga DO Work Phone: [facility] 04-11-2025 10:44-0400 Systolic blood pressure 131 mm[Hg] Dr. Agata Maradiaga DO Work Phone: [facility] 04-03-2025 08:53-0400 Body temperature 97.8 [degF] Dr. Agata Maradiaga DO Work Phone: [facility] 04-03-2025 08:53-0400 Body weight 74.[address] Agata Maradiaga DO Work Phone: [facility] 04-03-2025 08:53-0400 Diastolic blood pressure 74 mm[Hg] Dr. Agata Maradiaga DO Work Phone: [facility] 04-03-2025 08:53-0400 Heart rate 79 /min Dr. Agata Maradiaga DO Work Phone: [facility] 04-03-2025 08:53-0400 Respiratory rate 14 /min Dr. Agata Maradiaga DO Work Phone: [facility] 04-03-2025 08:53-0400 SaO2% (BldA) [Mass fraction] 97 % Dr. Agata Maradiaga DO Work Phone: [facility] 04-03-2025 08:53-0400 Systolic blood pressure 139 mm[Hg] Dr. Agata Maradiaga DO Work Phone: [facility] 01-16-2025 06:42-0400 Body height 165.[address] Agata Maradiaga DO Work Phone: [facility] 01-16-2025 06:42-0400 Body mass index (BMI) [Ratio] 28.3 kg/m2 Dr. Agata Maradiaga DO Work Phone: [facility] 01-16-2025 06:42-0400 Body weight 77.[address] Agata Maradiaga DO Work Phone: [facility] 01-16-2025 06:42-0400 Diastolic blood pressure 76 mm[Hg] Dr. Agata Maradiaga DO Work Phone: [facility] 01-16-2025 06:42-0400 Heart rate 66 /min Dr. Agata Maradiaga DO Work Phone: [facility] 01-16-2025 06:42-0400 Respiratory rate 18 /min Dr. Agata Maradiaga DO Work Phone: [facility] 01-16-2025 06:42-0400 SaO2% (BldA) [Mass fraction] 98 % Dr. Agata Maradiaga DO Work Phone: [facility] 01-16-2025 06:42-0400 Systolic blood pressure 159 mm[Hg] Dr. Agata Maradiaga DO Work Phone: [facility] 07-28-2023 13:49-0500 Body height 165.1 cm Devan May MD Work Phone: [facility] 07-28-2023 13:49-0500 Body mass index (BMI) [Ratio] 31.06 kg/m2 Devan May MD Work Phone: [facility] 07-28-2023 13:49-0500 Body weight 84.66 kg Devan May MD Work Phone: [facility] 07-28-2023 13:49-0500 Diastolic blood pressure 67 mm[Hg] Devan May MD Work Phone: [facility] 07-28-2023 13:49-0500 Heart rate 79 /min Devan May MD Work Phone: [facility] 07-28-2023 13:49-0500 Systolic blood pressure 135 mm[Hg] Devan May MD Work Phone: [facility] 07-21-2023 07:34-0500 Body temperature 98.3 [degF] Dr. Agata Maradiaga Work Phone: [facility] 07-21-2023 07:34-0500 Diastolic blood pressure 62 mm[Hg] Dr. Agata Maradiaga Work Phone: [facility] 07-21-2023 07:34-0500 Heart rate 67 /min Dr. Agata Maradiaga Work Phone: [facility] 07-21-2023 07:34-0500 Respiratory rate 18 /min Dr. Agata Maradiaga Work Phone: [facility] 07-21-2023 07:34-0500 SaO2% (BldA) [Mass fraction] 96 % Dr. Agata Maradiaga Work Phone: [facility] 07-21-2023 07:34-0500 Systolic blood pressure 139 mm[Hg] Dr. Agata Maradiaga Work Phone: [facility] 07-21-2023 06:18-0500 Body height 165.[address] Agata Maradiaga Work Phone: [facility] 07-21-2023 06:18-0500 Body mass index (BMI) [Ratio] 31 kg/m2 Dr. Agata Maradiaga Work Phone: [facility] 07-21-2023 06:18-0500 Body weight 84.[address] Agata Maradiaga Work Phone: [facility] 06-26-2023 09:08-0400 Body temperature 96.7 [degF] Dr. Agata Maradiaga Work Phone: [facility] 06-26-2023 09:08-0400 Diastolic blood pressure 68 mm[Hg] Dr. Agata Maradiaga Work Phone: [facility] 06-26-2023 09:08-0400 Heart rate 70 /min Dr. Agata Maradiaga Work Phone: [facility] 06-26-2023 09:08-0400 Respiratory rate 17 /min Dr. Agata Maradiaga Work Phone: [facility] 06-26-2023 09:08-0400 SaO2% (BldA) [Mass fraction] 97 % Dr. Agata Maradiaga Work Phone: [facility] 06-26-2023 09:08-0400 Systolic blood pressure 148 mm[Hg] Dr. Agata Maradiaga Work Phone: [facility] 01-27-2023 12:03-0400 Body temperature 97.5 [degF] Dr. Agata Maradiaga Work Phone: [facility] 01-27-2023 12:03-0400 Diastolic blood pressure 72 mm[Hg] Dr. Agata Maradiaga Work Phone: [facility] 01-27-2023 12:03-0400 Heart rate 68 /min Dr. Agata Maradiaga Work Phone: [facility] 01-27-2023 12:03-0400 Respiratory rate 16 /min Dr. Agata Maradiaga Work Phone: [facility] 01-27-2023 12:03-0400 SaO2% (BldA) [Mass fraction] 96 % Dr. Agata Maradiaga Work Phone: [facility] 01-27-2023 12:03-0400 Systolic blood pressure 142 mm[Hg] Dr. Agata Maradiaga Work Phone: [facility] 01-27-2023 09:34-0400 Body height 165.[address] Agata Maradiaga Work Phone: [facility] 01-27-2023 09:34-0400 Body mass index (BMI) [Ratio] 29.7 kg/m2 Dr. Agata Maradiaga Work Phone: [facility] 01-27-2023 09:34-0400 Body weight [address] Agata Maradiaga Work Phone: [facility] 01-23-2023 13:11-0400 Body mass index (BMI) [Ratio] 29.7 kg/m2 Dr. Agata Maradiaga Work Phone: [facility] 01-23-2023 13:11-0400 Body weight 81.[address] Agata Maradiaga Work Phone: [facility] 01-23-2023 13:11-0400 Diastolic blood pressure 82 mm[Hg] Dr. Agata Maradiaga Work Phone: [facility] 01-23-2023 13:11-0400 Respiratory rate 18 /min Dr. Agata Maradiaga Work Phone: [facility] 01-23-2023 13:11-0400 Systolic blood pressure 148 mm[Hg] Dr. Agata Maradiaga Work Phone: [facility] 12-15-2022 10:22-0400 Body height 165.[address] Agata Maradiaga Work Phone: [facility] 12-15-2022 10:22-0400 Body mass index (BMI) [Ratio] 30.1 kg/m2 Dr. Agata Maradiaga Work Phone: [facility] 12-15-2022 10:22-0400 Body weight 82.[address] Agata Maradiaga Work Phone: [facility] 12-02-2022 16:19-0400 Body temperature 98.7 [degF] Dr. Agata Maradiaga Work Phone: [facility] 12-02-2022 16:19-0400 Diastolic blood pressure 59 mm[Hg] Dr. Agata Maradiaga Work Phone: [facility] 12-02-2022 16:19-0400 Heart rate 78 /min Dr. Agata Maradiaga Work Phone: [facility] 12-02-2022 16:19-0400 Respiratory rate 16 /min Dr. Agata Maradiaga Work Phone: [facility] 12-02-2022 16:19-0400 SaO2% (BldA) [Mass fraction] 98 % Dr. Agata Maradiaga Work Phone: [facility] 12-02-2022 16:19-0400 Systolic blood pressure 142 mm[Hg] Dr. Agata Maradiaga Work Phone: [facility] 12-02-2022 10:03-0400 Body height 165.[address] Agata Maradiaga Work Phone: [facility] 12-02-2022 10:03-0400 Body mass index (BMI) [Ratio] 30.4 kg/m2 Dr. Agata Maradiaga Work Phone: [facility] 12-02-2022 10:03-0400 Body weight [address] Agata Maradiaga Work Phone: [facility] 11-21-2022 09:30-0400 Body mass index (BMI) [Ratio] 31.6 kg/m2 Dr. Agata Maradiaga Work Phone: [facility] 11-21-2022 09:30-0400 Body temperature 96.2 [degF] Dr. Agata Maradiaga Work Phone: [facility] 11-21-2022 09:30-0400 Body weight 86.[address] Agata Maradiaga Work Phone: [facility] 11-21-2022 09:30-0400 Diastolic blood pressure 72 mm[Hg] Dr. Agata Maradiaga Work Phone: [facility] 11-21-2022 09:30-0400 Heart rate 84 /min Dr. Agata Maradiaga Work Phone: [facility] 11-21-2022 09:30-0400 Respiratory rate 17 /min Dr. Agata Maradiaga Work Phone: [facility] 11-21-2022 09:30-0400 SaO2% (BldA) [Mass fraction] 96 % Dr. Agata Maradiaga Work Phone: [facility] 11-21-2022 09:30-0400 Systolic blood pressure 153 mm[Hg] Dr. Agata Maradiaga Work Phone: [facility] 10-13-2022 09:29-0500 Body mass index (BMI) [Ratio] 30.8 kg/m2 Dr. Agata Maradiaga Work Phone: [facility] 10-13-2022 09:29-0500 Body weight 85.[address] Agata Maradiaga Work Phone: [facility] 10-13-2022 09:29-0500 Diastolic blood pressure 75 mm[Hg] Dr. Agata Maradiaga Work Phone: [facility] 10-13-2022 09:29-0500 Heart rate 79 /min Dr. Agata Maradiaga Work Phone: [facility] 10-13-2022 09:29-0500 Respiratory rate 18 /min Dr. Agata Maradiaga Work Phone: [facility] 10-13-2022 09:29-0500 SaO2% (BldA) [Mass fraction] 99 % Dr. Agata Maradiaga Work Phone: [facility] 10-13-2022 09:29-0500 Systolic blood pressure 157 mm[Hg] Dr. Agata Maradiaga Work Phone: [facility] 08-29-2022 08:51-0500 Body mass index (BMI) [Ratio] 30.6 kg/m2 Dr. Agata Maradiaga Work Phone: [facility] 08-29-2022 08:51-0500 Body temperature 97 [degF] Dr. Agata Maradiaga Work Phone: [facility] 08-29-2022 08:51-0500 Body weight 84.[address] Agata Maradiaga Work Phone: [facility] 08-29-2022 08:51-0500 Diastolic blood pressure 78 mm[Hg] Dr. Agata Maradiaga Work Phone: [facility] 08-29-2022 08:51-0500 Heart rate 80 /min Dr. Agata Maradiaga Work Phone: [facility] 08-29-2022 08:51-0500 Respiratory rate 17 /min Dr. Agata Maradiaga Work Phone: [facility] 08-29-2022 08:51-0500 SaO2% (BldA) [Mass fraction] 97 % Dr. Agata Maradiaga Work Phone: [facility] 08-29-2022 08:51-0500 Systolic blood pressure 154 mm[Hg] Dr. Agata Maradiaga Work Phone: [facility] 04-27-2022 09:09-0400 Body height 167.[address] Agata Maradiaga Work Phone: [facility] Work Phone: 04-27-2022 09:09-0400 Body mass index (BMI) [Ratio] 29.8 kg/m2 Dr. Agata Maradiaga Work Phone: [facility] Work Phone: 04-27-2022 09:09-0400 Body weight 83.[address] Agata Maradiaga Work Phone: [facility] Work Phone: 04-27-2022 09:09-0400 Diastolic blood pressure 76 mm[Hg] Dr. Agata Maradiaga Work Phone: [facility] Work Phone: 04-27-2022 09:09-0400 Heart rate 70 /min Dr. Agata Maradiaga Work Phone: [facility] Work Phone: 04-27-2022 09:09-0400 Respiratory rate 16 /min Dr. Agata Maradiaga Work Phone: [facility] Work Phone: 04-27-2022 09:09-0400 SaO2% (BldA) [Mass fraction] 97 % Dr. Agata Maradiaga Work Phone: [facility] Work Phone: 04-27-2022 09:09-0400 Systolic blood pressure 147 mm[Hg] Dr. Agata Maradiaga Work Phone: [facility] Work Phone: 04-15-2022 11:14-0400 Body temperature 97.6 [degF] Dr. Agata Maradiaga Work Phone: [facility] Work Phone: 04-15-2022 11:14-0400 Diastolic blood pressure 68 mm[Hg] Dr. Agata Maradiaga Work Phone: [facility] Work Phone: 04-15-2022 11:14-0400 Heart rate 95 /min Dr. Agata Maradiaga Work Phone: [facility] Work Phone: 04-15-2022 11:14-0400 Respiratory rate 16 /min Dr. Agata Maradiaga Work Phone: [facility] Work Phone: 04-15-2022 11:14-0400 SaO2% (BldA) [Mass fraction] 97 % Dr. Agata Maradiaga Work Phone: [facility] Work Phone: 04-15-2022 11:14-0400 Systolic blood pressure 158 mm[Hg] Dr. Agata Maradiaga Work Phone: [facility] Work Phone: 03-25-2022 11:02-0400 Body temperature 96.4 [degF] Dr. Agata Maradiaga Work Phone: [facility] Work Phone: 03-25-2022 11:02-0400 Diastolic blood pressure 62 mm[Hg] Dr. Agata Maradiaga Work Phone: [facility] Work Phone: 03-25-2022 11:02-0400 Heart rate 85 /min Dr. Agata Maradiaga Work Phone: [facility] Work Phone: 03-25-2022 11:02-0400 Respiratory rate 115 /min Dr. Agata Maradiaga Work Phone: [facility] Work Phone: 03-25-2022 11:02-0400 SaO2% (BldA) [Mass fraction] 97 % Dr. Agata Maradiaga Work Phone: [facility] Work Phone: 03-25-2022 11:02-0400 Systolic blood pressure 150 mm[Hg] Dr. Agata Maradiaga Work Phone: [facility] Work Phone: 02-16-2022 08:51-0400 Body height 160 cm Alex Back MD Work Phone: [facility] 02-16-2022 08:51-0400 Body weight 83.01 kg Alex Back MD Work Phone: [facility] 02-16-2022 08:51-0400 Diastolic blood pressure 62 mm[Hg] Alex Back MD Work Phone: [facility] 02-16-2022 08:51-0400 Systolic blood pressure 142 mm[Hg] Alex Back MD Work Phone: [facility] 12-16-2021 09:04-0400 Body height 167.[address] Agata Maradiaga Work Phone: [facility] Work Phone: 12-16-2021 09:04-0400 Body mass index (BMI) [Ratio] 30.8 kg/m2 Dr. Agata Maradiaga Work Phone: [facility] Work Phone: 12-16-2021 09:04-0400 Body temperature 97.1 [degF] Dr. Agata Maradiaga Work Phone: [facility] Work Phone: 12-16-2021 09:04-0400 Body weight 86.[address] Agata Maradiaga Work Phone: [facility] Work Phone: 12-16-2021 09:04-0400 Diastolic blood pressure 78 mm[Hg] Dr. Agata Maradiaga Work Phone: [facility] Work Phone: 12-16-2021 09:04-0400 Heart rate 65 /min Dr. Agata Maradiaga Work Phone: [facility] Work Phone: 12-16-2021 09:04-0400 Respiratory rate 16 /min Dr. Agata Maradiaga Work Phone: [facility] Work Phone: 12-16-2021 09:04-0400 SaO2% (BldA) [Mass fraction] 98 % Dr. Agata Maradiaga Work Phone: [facility] Work Phone: 12-16-2021 09:04-0400 Systolic blood pressure 138 mm[Hg] Dr. Agata Maradiaga Work Phone: [facility] Work Phone: 12-16-2021 09:04-0400 Body height 167.[address] Agata Maradiaga Work Phone: [facility] Work Phone: 12-16-2021 09:04-0400 Body mass index (BMI) [Ratio] 30.8 kg/m2 Dr. Agata Maradiaga Work Phone: [facility] Work Phone: 12-16-2021 09:04-0400 Body temperature 97.1 [degF] Dr. Agata Maradiaga Work Phone: [facility] Work Phone: 12-16-2021 09:04-0400 Body weight 86.[address] Agata Maradiaga Work Phone: [facility] Work Phone: 12-16-2021 09:04-0400 Diastolic blood pressure 78 mm[Hg] Dr. Agata Maradiaga Work Phone: [facility] Work Phone: 12-16-2021 09:04-0400 Heart rate 65 /min Dr. Agata Maradiaga Work Phone: [facility] Work Phone: 12-16-2021 09:04-0400 Respiratory rate 16 /min Dr. Agata Maradiaga Work Phone: [facility] Work Phone: 12-16-2021 09:04-0400 SaO2% (BldA) [Mass fraction] 98 % Dr. Agata Maradiaga Work Phone: [facility] Work Phone: 12-16-2021 09:04-0400 Systolic blood pressure 138 mm[Hg] Dr. Agata Maradiaga Work Phone: [facility] Work Phone: 07-27-2017 14:47-0500 BMI (Body Mass Index) 26.94 kg/m2 [facility] Work Phone: 07-27-2017 14:47-0500 BP Diastolic 60 mm[Hg] [facility] Work Phone: 07-27-2017 14:47-0500 BP Systolic 150 mm[Hg] [facility] Work Phone: 07-27-2017 14:47-0500 Height 170.18 cm [facility] Work Phone: 07-27-2017 14:47-0500 Pulse (Heart Rate) 72 /min Harumi [facility] Work Phone: 07-27-2017 14:47-0500 Respiratory Rate 20 /min Harumi DeFincole [facility] Work Phone: 07-27-2017 14:47-0500 Weight 78.02 kg Harumi DeFincole [facility] Work Phone: 06-14-2016 13:52-0400 BMI (Body Mass Index) 28.97 kg/m2 Leticia Desai RN [facility] Work Phone: 06-14-2016 13:52-0400 BP Diastolic 60 mm[Hg] Leticia Desai RN [facility] Work Phone: 06-14-2016 13:52-0400 BP Systolic 120 mm[Hg] Leticia Desai RN [facility] Work Phone: 06-14-2016 13:52-0400 BSA (Body Surface Area) 1.96 m2 Leticia Desai RN [facility] Work Phone: 06-14-2016 13:52-0400 Pulse (Heart Rate) 72 /min Leticia Desai RN [facility] Work Phone: 06-14-2016 13:52-0400 Respiratory Rate 20 /min Leticia Desai RN [facility] Work Phone: 06-14-2016 13:52-0400 Weight 83.92 kg Leticia Desai RN [facility] Work Phone: 05-25-2016 10:28-0400 Body Temperature 96.4 [degF] Leticia Desai RN [facility] Work Phone: 12-07-2011 11:58-0400 Height 170.18 cm Leticia Desai RN [facility] Work Phone: Encounters Encounter Date Encounter Type Care Provider Facility Start: 08-18-2025 ambulatory [facility] Facility: [facility] Start: 08-05-2025 ambulatory [facility] Facility: [facility] Start: 07-22-2025 ambulatory [facility]: [facility] Start: 04-15-2025 End: 04-15-[address] Sunny Gonzalez MD -[facility] Start: 04-15-2025 End: 04-15-[address] Agata Maradiaga DO Work Phone: -[facility] Start: 04-11-2025 End: 04-11-[address] Ellyn Sommer MD -[facility] Work Phone: Start: 04-11-2025 End: 04-11-[address] Agata Maradiaga DO Work Phone: -[facility] Start: 04-03-2025 End: 04-03-[address] Agata Maradiaga DO Work Phone: -[facility] Start: 04-03-2025 End: 04-03-2025 Patient encounter procedure Cee POPE -[facility] Work Phone: Start: 03-11-2025 Non-patient / Non-visit Dr. Clifton Sommer MD -[facility] Work Phone: Start: 03-04-2025 End: 03-04-[address] Agata Maradiaga DO Work Phone: -[facility]patient [facility] Start: 03-04-2025 End: 03-04-[address] Alex Back MD -[facility] Work Phone: Start: 03-04-2025 End: 03-04-2025 ambulatory Agata Ashwini Facility:[facility] Start: 02-28-2025 Non-patient / Non-visit Mari ZULETA -[facility] Work Phone: Start: 02-28-2025 ambulatory Mari Caal NP Facili ty:[facility] Start: 02-27-2025 ambulatory Agata Ashwini Facility: [facility] Start: 02-27-2025 Non-patient / Non-visit Dr. Tristen MCMILLAN -[facility] Start: 02-27-2025 End: 02-27-[address] Agata Maradiaga DO Work Phone: [facility] Work Phone: Start: 02-27-2025 End: 02-27-2025 Patient encounter procedure Mari Caal [employer] [facility] Work Phone: Start: 02-27-2025 End: 02-27-2025 ambulatory Agata [facility] Facility:[facility] Start: 01-16-2025 End: 01-16-2025 Patient encounter procedure Mari Caal [employer] [facility] -[facility] Work Phone: Start: 01-16-2025 End: 01-16-2025 ambulatory Agata [facility] Facility:[facility] Start: 11-13-2024 ambulatory Agata Ashwini Facility: [facility] Start: 09-07-2023 Telephone encounter Devan orellana MD Work Phone: [facility] Comment on above: Results Start: 09-05-2023 End: 09-06-2023 ambulatory DEVAN MAY [facility] Start: 09-05-2023 End: 09-05-2023 Subsequent hospital visit by physician Devan May MD Work Phone: [facility] MRI Comment on above: New onset of headach es after age 49 Start: 09-05-2023 End: 09-05-[address] Agata Maradiaga Work Phone: [facility] Work Phone: Start: 09-05-2023 End: 09-05-[address] Agata Maradiaga Work Phone: [facility]-Physical Therapy Work Phone: Start: 07-28-2023 End: 07-28-[address] Agata Maradiaga Work Phone: [facility] Work Phone: Start: 07-28-2023 End: [address] Agata Maradiaga Work Phone: [facility] Work Phone: Start: 07-28-2023 End: 07-28-2023 Subsequent hospital visit by physician Devan May MD Work Phone: [facility] X-ray Imaging Comment on above: Cervico-occipital ne uralgia Start: 07-28-2023 End: 07-28-2023 Office outpatient new 30 minutes Devan May MD Work Phone: [facility] Comment on above: New onset of headach es after age 49 (Primary Dx); Cervico-occipital neuralgia Start: 07-21-2023 Non-patient / Non-visit Dr. Selin Maradiaga Work Phone: [facility] Start: 07-21-2023 End: 07-21-2023 Admission to same day surgery center Dr. Agata Maradiaga Work Phone: [facility]-Endoscopy Work Phone: Start: 07-21-2023 End: 07-21-[address] Agata Maradiaga Work Phone: [facility] Work Phone: Start: 07-17-2023 End: 07-17-[address] Agata Maradiaga Work Phone: [facility] Work Phone: Start: 07-17-2023 End: 07-17-[address] Agata Maradiaga Work Phone: [facility]-Radiology, [facility] Work Phone: Start: 07-14-2023 End: 07-14-[address] Agata Maradiaga Work Phone: [facility] Work Phone: Start: 06-26-2023 End: 06-26-[address] Agata Maradiaga Work Phone: [facility] Work Phone: Start: 05-29-2023 End: 05-29-[address] Agata Maradiaga Work Phone: [facility] Work Phone: Start: 03-06-2023 End: 03-07-2023 ambulatory AGATA MARADIAGA Facility:[facility] Start: 03-06-2023 Encounter for gynecological examination (general) (routine) without abnormal findings ALEX BACK [facility] Start: 02-20-2023 End: 02-20-[address] Agata Maradiaga Work Phone: [facility] Work Phone: Start: 02-20-2023 End: 02-20-[address] Agata Maradiaga Work Phone: [facility]-Outpatient Breast Imaging Start: 02-13-2023 End: 02-13-[address] Agata Maradiaga Work Phone: [facility] Start: 01-27-2023 Non-patient / Non-visit Dr. Selin Maradiaga Work Phone: [facility] Start: 01-27-2023 End: 01-27-2023 Admission to same day surgery center Dr. Agata Maradiaga Work Phone: [facility]-Surgical Day Care Start: 01-23-2023 End: 01-23-[address] Agata Maradiaga Work Phone: [facility] Start: 01-11-2023 End: 01-11-[address] Agata Maradiaga Work Phone: [facility] Work Phone: Start: 01-11-2023 End: 01-11-[address] Agata Maradiaga Work Phone: [facility] Start: 01-05-2023 End: 01-05-[address] Agata Maradiaga Work Phone: [facility] Work Phone: Start: 01-05-2023 End: 01-05-[address] Agata Maradiaga Work Phone: [facility] Start: 12-15-2022 End: 12-15-[address] Agata Maradiaga Work Phone: [facility] Start: 12-12-2022 End: 12-12-[address] Agata Maradiaga Work Phone: [facility] Start: 12-02-2022 Non-patient / Non-visit Dr. Selin Maradiaga Work Phone: [facility] Start: 12-02-2022 End: 12-02-2022 Admission to same day surgery center [facility] Agata [facility]aga [facility] Start: 12-02-2022 End: 12-02-[address] Agata Maradiaga Work Phone: [facility] Work Phone: Start: 11-29-2022 End: 11-29-2022 Non-patient / Non-visit Dr. Agata Maradiaga Work Phone: [facility] Start: 11-21-2022 End: 11-21-2022 Patient encounter procedure Dr. Agata Maradiaga Work Phone: [facility] Start: 10-13-2022 End: 10-13-[address] Agata Maradiaga Work Phone: [facility] Start: 08-29-2022 End: 08-29-[address] Agata Maradiaga Work Phone: [facility] Start: 05-04-2022 End: 05-04-2022 ambulatory WILMER JUAREZ Facility:[facility] Start: 05-04-2022 End: 05-04-2022 Patient encounter procedure Wilmer Juarez DO Work Phone: [facility] Comment on above: Contusion of left kn ee, initial encounter (Primary Dx); Status post revision of total knee replacement, left Start: 05-04-2022 End: 05-04-2022 Subsequent hospital visit by physician Xr [facility] Rajendra Mob Work Phone: Radiology Comment on above: Left knee pain, unsp ecified chronicity [M25.562] Start: 05-03-2022 Orders Only Wilmer Juarez D O Work Phone: Orthopaedics Comment on above: Left knee pain, unsp ecified chronicity (Primary Dx) Start: 04-30-2022 End: 04-30-[address] Aagta Maradiaga Work Phone: [facility] Work Phone: Start: 04-30-2022 End: 04-30-[address] Agata Maradiaga Work Phone: [facility] Start: 04-27-2022 End: 04-27-[address] Agata Maradiaga Work Phone: [facility] Start: 04-27-2022 End: 04-27-[address] Agata Maradiaga Work Phone: [facility] Start: 04-15-2022 End: 04-15-[address] Agata Maradiaga Work Phone: [facility] Start: 03-30-2022 End: 03-30-[address] Agata Maradiaga Work Phone: [facility], Specimen Start: 03-25-2022 End: 03-25-[address] Agata Maradiaga Work Phone: [facility] Start: 03-23-2022 End: 03-23-[address] Agata Maradiaga Work Phone: [facility] Start: 03-01-2022 End: 03-01-[address] Agata Maradiaga Work Phone: [facility] Start: 02-16-2022 End: 02-16-2022 Patient encounter procedure [...] encounter procedure [facility]adiaga [facility] Start: 01-12-2022 End: 01-12-[address] Agata Maradiaga Work Phone: [facility] Start: 01-11-2022 End: 01-11-[address] Agata Maradiaga Work Phone: [facility], [facility] Start: 12-23-2021 End: 12-23-[address] Agata Maradiaga Work Phone: [facility]Radiology, [facility] Start: 12-16-2021 End: 12-16-[address] Agata Maradiaga Work Phone: [facility] [place] Start: 12-16-2021 End: 12-16-[address] Agata Maradiaga Work Phone: [facility] Endocrinology Start: 12-10-2021 End: 12-10-[address] Agata Maradiaga Work Phone: [facility]-Outpatient Breast Imaging Start: 12-06-2021 Orders Only Alex yanez MD Work Phone: Appointment Center Comment on above: Encounter for screen ing mammogram for malignant neoplasm of breast (Primary Dx) Start: 10-12-2021 End: 10-12-[address] Agata Maradiaga Work Phone: [facility] Start: 12-14-2017 End: 12-14-2017 Ambulatory MARTIN JUAREZ (PA) [facility] Procedures Date Procedure Procedure Detail Performing Clinician Start: 03-04-[address] Agata Maradiaga DO Work Phone: Start: 02-27-2025 Radionuclide imaging of perfusion of myocardium under exercise stress Dr. Agata Maradiaga DO Work Phone: Start: 07-21-[address] Agata patricia Work [...] Radiologic exam knee complete 4/more views Wilmer Juarez DO Work Phone: Start: 04-27-2022 X-ray of both [...] on above: RIGHT Start: 07-27-2017 End: 07-27-2017 CAGE FIGHTER Sunny Gonzalez MD Start: 07-27-2017 End: 07-27-2017 [...] months Maxime Evans Start: 06-14-2016 End: 06-14-2016 MM Sunny Gonzalez MD Start: 06-08-2016 End: 11-30-2016 [...] PA-C Work Phone: Start: 12-09-2015 End: 12-09-2015 CAGE FIGHTER Mary Kate Kramer PA-C Work Phone: Start: [...] months Maxime Evans Start: 04-30-2013 End: 04-30-2013 CAGE FIGHTER Sunny Gonzalez MD Start: 04-30-2013 End: 04-30-2013 Follow [...] of non-drug eluting coronary artery stent Alex Back MD Work Phone: Start: 02-28-2011 [facility] Alex Back MD Work Phone: Start: 09-11-[address] JASKARAN SYLVESTER MD Comment on above: RIGHT Start: 09-11-2008 Decompression of median nerve DR JASKARAN SYLVESTER MD Comment on above: RIGHT Start: 12-14-2007 History of placement of stent for coronary artery disease History of coronary artery stent placement Dr. Agata Maradiaga Work Phone: Comment on above: PCI-OMAR-Mid LAD w/ 2.5 x 24 mm [place] Stent 12/14/2007 Start: 09-11-[address] JASKARAN [...] MD Work Phone: Urine culture Dr. Agata Durand [place] Work Phone: Plan of Treatment Date Care Activity Detail Author Start: 03-14-2028 DTaP/Tdap/Td Vaccine s (4 - Td or Tdap) DTaP/Tdap/Td Vaccines (4 - Td or Tdap) [facility] Start: 03-14-2028 Urine microalbumin profile DTAP,TDAP,TD (3 - Td or Tdap) [facility] Start: 04-15-2025 X-ray of foot, three or more views Foot min 3 Views [facility] Start: 04-01-2024 DIABETES SCREEN DIABETES SCREEN [facility] Start: 02-21-2024 Screening for malign ant neoplasm of breast Mammogram [facility] Start: 11-17-2023 End: 11-17-2023 Patient encounter procedure 11/17/2023 10:00 AM EST Office Visit [facility] [address] [place] [id number] Devan May MD [address] [place] [address] [facility] [employer] [facility] Start: 07-28-2023 End: 07-28-2024 MR Brain WO and W contrast IV MR brain w and wo contrast Imaging Routine New onset of headaches after age 50 Expected: 07/28/2023, Expires: 07/28/2024 [facility] [employer] Work Phone: Comment on above: Expected: 07/28/2023 , Expires: 07/28/2024 Start: 07-28-2023 End: 07-28-2024 XR Cervical spine 4 or 5 Views [facility] Comment on above: Expected: 07/28/2023 , Expires: 07/28/2024 Once for 1 Occurrenc es starting 07/28/2023 until 07/28/2023 Start: 07-21-2023 Egd transoral biopsy single/multiple EGD BIOPSY SINGLE/MULTIPLE [facility] Start: 07-21-2023 Patient discharge [facility] Start: 07-14-2023 Patient referral [facility] Work Phone: Start: 05-12-2023 Influenza vaccination Influenza Vacc ine (#1) [facility] Start: 01-27-2023 Anesthesia major ves sels neck simple ligation ANESTH NECK VESSEL SURGERY [facility] Start: 01-27-2023 Ligation/biopsy temp oral artery TEMPORAL ARTERY PROCEDURE [facility] Start: 01-27-2023 Patient discharge [facility] Start: 12-10-2022 Mammography MAMMOGRAM [facility] Start: 12-02-2022 Anesthesia intraperitoneal lower abd w/laps nos ANESTH SURG LOWER ABDOMEN [facility] Start: 12-02-2022 Laparoscopy surg rpr initial inguinal hernia LAP ING HERNIA REPAIR INIT [facility] Start: 12-02-2022 RPR AA HRN 1ST < 3 CM RDC RPR AA HRN 1ST < 3 CM RDC [facility] Start: 12-02-2022 Patient discharge [facility] Start: 07-25-2022 LIPID SCREEN LIPID SCREEN [facility] Start: 07-10-2022 Lipid panel Lipid Panel [facility] Start: 05-12-2022 Influenza vaccination C [facility] Start: 03-30-2022 Adult depression screening assessment DEPRESSION SCREENING [facility] Start: 12-16-2021 Patient referral [facility] Work Phone: Start: 11-30-2021 Mammography MAMMOGRAM [facility] Start: 09-11-2021 ADVANCE DIRECTIVE DISCUSSION ADVANCE DIRECTIVE DISCUSSION [facility] Start: 05-12-2021 Influenza vaccination INFLUENZA (#1) [facility] Start: 06-20-2021 Colonoscopy COLONOSCOPY [facility] Start: 02-28-2021 COLORECTAL CANCER SCREENING COLORECTAL CANCER SCREENING [facility] Start: 08-28-2019 LIPID SCREEN LIPID SCREEN [facility] Start: 07-25-2018 End: 07-27-2017 *Hepatic Function Panel *Hepatic Function Panel [employer] Work Phone: Start: 07-25-2018 End: 07-27-2017 Lipid panel [AGGREGATE] *Lipid Profile CC PCP [facility] Work Phone: Start: 01-25-2018 End: 01-25-2018 Appointment Appointment [employer] Work Phone: Start: 07-27-2017 End: 07-27-2017 Appointment Appointment [employer] Work Phone: Start: 07-27-2017 End: 07-27-2017 CAGE FIGHTER CAGE FIGHTER [employer] Work Phone: Start: 07-27-2017 End: 07-27-2017 Follow Up Appt 6 months Follow Up Appt 6 months [employer] Work Phone: Start: 07-10-2017 End: 07-25-2017 *Hepatic Function Panel *Hepatic Function Panel [employer] Work Phone: Start: 07-10-2017 End: 07-25-2017 Lipid panel [AGGREGATE] *Lipid Profile CC PCP [employer] Work Phone: Start: 04-04-2017 End: 07-10-2017 *Hepatic Function Panel *Hepatic Function Panel [employer] Work Phone: Start: 04-04-2017 End: 07-10-2017 Lipid panel [AGGREGATE] *Lipid Profile CC PCP [facility] Work Phone: Start: 10-02-2016 Pneumococcal Vaccine : 65+ Years (2 - PPSV23 or PCV20) Pneumococcal Vaccine: 65+ Years (2 - PPSV23 or PCV20) [facility] Start: 10-02-2016 Pneumococcal Vaccine : 65+ Years (2 of 2 - PPSV23 or PCV20) Pneumococcal Vaccine: 65+ Years (2 of 2 - PPSV23 or PCV20) [facility] Start: 10-02-2016 PNEUMOCOCCAL: 65+ (2 - PPSV23 or PCV20) PNEUMOCOCCAL: 65+ (2 - PPSV23 or PCV20) [facility] Start: 06-14-2016 End: 06-14-2016 Follow Up Appt 6 months Follow Up Appt 6 months [facility] Work Phone: Start: 06-14-2016 End: 06-14-2016 MMM MMM [facility] Work Phone: Start: 06-08-2016 End: 11-30-2016 Ecg routine ecg w/least 12 lds w/i&r EKG (In office) [facility] Work Phone: Start: 05-25-2016 End: 06-08-2016 Follow Up Appt Other Follow Up Appt Other [facility] Work Phone: Start: 05-25-2016 End: 05-26-2016 Radiologic examination tibia & fibula 2 views X-Ray, Tibia & Fibula [facility] Work Phone: Start: 01-14-2016 End: 01-15-2016 Urine culture, bacteria *CUUR - Culture, Urine ([place] Count) [facility] Work Phone: Start: 01-12-2016 End: 01-14-2016 Urinalysis complete panel - Urine *UAC- Urinalysis, Complete w/ Micro [facility] Work Phone: Start: 12-09-2015 End: 03-17-2016 *Hepatic Function Panel *Hepatic Function Panel [facility] Work Phone: Start: 12-09-2015 End: 12-09-2015 CAGE FIGHTER CAGE FIGHTER [facility] Work Phone: Start: 12-09-2015 End: 12-21-2015 Ecg routine ecg w/least 12 lds w/i&r EKG (In office) [facility] Work Phone: Start: 12-09-2015 End: 12-09-2015 Follow Up Appt 6 months Follow Up Appt 6 months [facility] Work Phone: Start: 12-09-2015 End: 03-17-2016 Lipid panel [AGGREGATE] *Lipid Profile CC PCP [facility] Work Phone: Start: 12-09-2015 End: 12-09-2015 Nuclear stress test -exercise Nuclear stress test -exercise [employer] Work Phone: Start: 06-12-2015 End: 06-12-2015 Follow Up Appt 6 months Follow Up Appt 6 months [employer] Work Phone: Start: 06-12-2015 End: 06-12-2015 MMM MMM [employer] Work Phone: Start: 06-12-2015 End: 06-15-2015 Thyroid stimulating hormone (TSH) *TSH [employer] Work Phone: Start: 06-12-2015 End: 06-15-2015 Thyroxine (T4) *T4 (Total) [employer] Work Phone: Start: 12-18-2014 End: 12-18-2014 CAGE FIGHTER CAGE FIGHTER [facility] Work Phone: Start: 12-18-2014 End: 12-18-2014 Follow Up Appt 6 months Follow Up Appt 6 months [employer] Work Phone: Start: 2014 PNEUMOVAX AGE 65 AND OVER WITH 5YR LOOKBACK (#1) PNEUMOVAX AGE 65 AND OVER WITH 5YR LOOKBACK (#1) [facility] Start: 10-31-2013 End: 10-31-2013 CAGE FIGHTER CAGE FIGHTER [facility] Work Phone: Start: 10-31-2013 End: 10-31-2013 Follow Up Appt 6 months Follow Up Appt 6 months [facility] Work Phone: Start: 04-30-2013 End: 04-30-2013 CAGE FIGHTER [facility] Work Phone: Start: 04-30-2013 End: 04-30-2013 Follow Up Appt 6 months Follow Up Appt 6 months [employer] Work Phone: Start: 10-29-2012 End: 10-29-2012 Follow Up Appt 6 months Follow Up Appt 6 months [employer] Phone: Start: 10-29-2012 End: 10-29-2012 Nuclear stress test -exercise Nuclear stress test -exercise [employer] Phone: Start: 08-01-2012 End: 08-01-2012 Follow Up Appt 6 months Follow Up Appt 6 months [employer] Phone: Start: 12-07-2011 End: 12-07-2011 Follow Up Appt 6 months Follow Up Appt 6 months [employer] Phone: Start: 10-24-2011 SHINGRIX VACCINE (2 of 3) MEZA GRIX VACCINE (2 of 3) [facility] Start: 10-24-2011 Zoster Vaccines (2 of 3) Zoste r Vaccines (2 of 3) [facility] Start: 2009 RSV Immunization age d 60 or older (1 - 1-dose 60+ series) RSV Immunization aged 60 or older (1 - 1-dose 60+ series) [facility] Start: 1994 COLOGUARD (FIT-DNA) COLOGUARD (FIT-D NA) [facility] Start: [address] COLONOGRAPHY [facility] Start: 1994 FECAL OCCULT BLOOD FECAL OCCULT BLOO D [facility] Start: 1994 SIGMOIDOSCOPY SIGMOIDOSCOPY [facility] Start: 1967 ANNUAL PCP TEAM SUPERVISOR PYROTECHNIC LOADING MICHELA DISEASE VISIT ANNUAL PCP TEAM CHRONIC DISEASE VISIT [facility] Start: 1967 Diabetes mellitus screening Diabetes Screening [facility] Start: 1967 Hepatitis C screening Hepatitis C Sc reening [facility] Start: 1961 Depression Screening Depression Scre ening [facility] Start: 1954 COVID-19 VACCINE (#1) COVID-19 VACCI NE (#1) [facility] Start: 1954 COVID-19 VACCINE (1) COVID-19 VACCIN E (1) [facility] Start: 01-26-1950 COVID-19 VACCINE (#1) COVID-19 VACCI NE (#1) [facility] Start: 1949 Medicare Annual Well ness (AWV) Medicare Annual Wellness (AWV) [facility] Start: 1949 Screening for malign ant neoplasm of colon [employer] Start: 1949 Screening for osteoporosis Bone Density Scan [employer] Start: 1949 Thyroid stimulating hormone measurement TSH Level [employer] End: 09-05-2023 MR Brain WO and W contrast IV [facility] [employer] Work Phone: Comment on above: Once for 1 Occurrenc es starting 09/05/2023 until 09/05/2023 OUTSIDE PROCEDURE SCAN OUTSIDE P ROCEDURE SCAN Procedures Ordered: 08/31/2023 [facility] [employer] [facility] Comment on above: Ordered: 08/31/2023 PAP FLUID CERVICAL SCREENING PAP FLUID CERVICAL SCREENING Lab Routine Pap smear of cervix with ASCUS, cannot exclude HGSIL Encounter for gynecological examination (general) (routine) without abnormal findings Pap smear for cervical cancer screening Ordered: 02/16/2022 [facility] Work Phone: Comment on above: Ordered: 02/16/2022 Patient Education [facility] Work Phone: Patient referral [facility] Work Phone: End: 01-05-2023 Screening mammography bi 2-view breast inc cad TOO SCREENING Radiology Routine Encounter for screening mammogram for malignant neoplasm of breast 1 Occurrences starting 12/07/2021 until 01/05/2023 [facility] Work Phone: Comment on above: 1 Occurrences starti ng 12/07/2021 until 01/05/2023 End: 06-02-2023 XR KNEE GENERAL 4V AP BOTH/PA BOTH/LAT/MERC LEFT XR KNEE GENERAL 4V AP BOTH/PA BOTH/LAT/MERC LEFT Radiology Routine Left knee pain, unspecified chronicity 1 Occurrences starting 05/03/2022 until 06/02/2023 [facility] Work Phone: Comment on above: 1 Occurrences starti ng 05/03/2022 until 06/02/2023 [facility] Immunizations Immunization Date Immunization Notes Care Provider Fa sriram 08-22-2022 influenza virus vaccine, unspecified formulation Devan May MD Work Phone: [facility] 03-14-2018 diphtheria, tetanus toxoids and acellular pertussis vaccine, unspecified formulation; Translations: [Boostrix Tdap (diphth,pertus(acell),t etanus) 2.5 Lf unit-8 mcg-5 Lf/0.5 mL] Alex Back MD Work Phone: [facility] Work Phone: 03-14-2018 tetanus toxoid, redu pool diphtheria toxoid, and acellular pertussis vaccine, adsorbed Alex Back MD Work Phone: [facility] Work Phone: 06-09-2016 influenza, injectabl e, quadrivalent, preservative free Dr. Agata Maradiaga Work Phone: [facility] 06-09-2016 influenza, seasonal, injectable Dr. Agata Maradiaga Work Phone: [facility] 06-09-2016 influenza, seasonal, injectable, preservative free Alex Back MD Work Phone: [facility] Work Phone: 10-02-2015 influenza, injectabl e, quadrivalent, preservative free Alex Back MD Work Phone: [facility] 10-02-2015 pneumococcal conjuga te vaccine, 13 valent Alex Back MD Work Phone: [facility] 07-01-2014 influenza, seasonal, injectable Alex Back MD Work Phone: [facility] 09-20-2013 influenza virus vaccine, unspecified formulation Alex Back MD Work Phone: [facility] 07-06-2012 influenza virus vaccine, unspecified formulation Alex Back MD Work Phone: [facility] 08-29-2011 zoster vaccine, live Alex Back MD Work Phone: [facility] Work Phone: 02-22-2011 tetanus toxoid, redu pool diphtheria toxoid, and acellular pertussis vaccine, adsorbed Alex Back MD Work Phone: [facility] 07-15-2009 novel ofrhvyius-[id number], preservative-free, injectable Alex Back MD Work Phone: [facility] Work Phone: Payers Date Payer Category Payer Self-pay [id number] 2019 Unknown MMO MMO MEDICARE SUPPLEMENT [id number] 2019-Present [phone] [address] [place] [address] Indemnity [id number] 2019 Unknown [id number] 2019 Unknown [id number] 2014 Medicare MEDICARE MEDICAR E A AND B [id number] 2014-Present [phone] [address] [address] [place] [address] Medicare [id number] 2014 Medicare [id number] 2014 Medicare [id number] Medicare [id number] Private Health Insurance [id number] Unknown [id number] Unknown [id number] 462 Unknown [id number] 462 Unknown [id number] 462 Unknown [id number] 462 Unknown [id number] 462 Unknown [id number] 462 Unknown [id number] 462 Unknown [id number] 462 Unknown [id number] 462 Unknown [id number] 462 Unknown [id number] 462 Social History Date Type Detail Facility Start: 12-18-2018 End: 04-15-2025 Tobacco smoking status NJIS Never smoked tobacco [facility] Start: 04-06-2021 End: 02-16-2022 Alcohol intake Current non-drinker of alcohol (finding) [facility] Start: 1950 Sex Assigned At Female [facility] Start: 11-26-2021 End: 05-04-2022 Exposure to SARS-CoV-2 (event) Not sure [facility] Start: 12-16-2021 End: 07-20-2023 Tobacco smoking status NJIS Unknown if ever smoked [facility] Start: 10-31-2011 End: 07-28-2023 Tobacco use and exposure Smokeless tobacco non-user [facility] Start: 05-11-2018 None [facility] Start: 05-11-2018 Spouse/ Signif icant Other [facility] Start: 05-11-2018 Non-smoker [facility] Start: 07-28-2023 Alcohol intake Lifetime non-d wojciech (finding) [facility] Start: 1950 Sex Assigned At Not on file [facility] Start: 07-28-2023 Gender identity Not on file [facility] Start: 07-28-2023 History of Social function [facility] NEGATED: Highlighted row [facility] Medical Equipment Procedure Code Equipment Code Equipment Origin al Text Equipment Identifier Dates Biopsy, artery, temporal Ligation clip, metallic [id number] FDA Start: 01-27-2023 Shell Actb 54mm Prim Sb Hmsphr - [id number] Start: 02-09-2015 Comment on above: Description: Hemisph erical Solid Back Shell Head Fem 32mm V4 0 Blx D - [id number] Start: 02-09-2015 Comment on above: Description: Ceramic V40 Femoral Head Shell Actb 54mm Prim Sb Hmsphr - [id number] Start: 05-13-2015 Comment on above: Description: TRITANI UM HEMISPHERICAL SOLID BACK SHELL 54MM E Head Fem 32mm V4 0 Blx D - [id number] Start: 05-13-2015 Comment on above: Description: BIOLOX DELTA CERAMIC V40 FEMORAL HEAD Ins Actb 32mm 0d E Hip X3 - [id number] Start: 02-09-2015 Comment on above: Description: 0* Poly ethylene Insert Fem Stem Acclde 2 Sz 4 127 Deg - [id number] Start: 02-09-2015 Comment on above: Description: 127* Ne ck Angle Hip Stem Ins Actb 32mm 0d E Hip X3 - [id number] Start: 05-13-2015 Comment on above: Description: TRIDENT X3 0 DEGREE POLYETHYLENE INSERT 32MM E Fem Stem Acclde 2 Sz 4 127 Deg - [id number] Start: 05-13-2015 Comment on above: Description: ACCOLAD E ll 127 DEGREE NECK ANGLE HIP STEM ([id number]) Extra-gynaecolog ic al surgical mesh, synthetic polymer, non-bioabsorbable ()[id number] FDA Start: 12-02-2022 Endoscopic manua l linear stapler ()[id number] FDA Start: 12-02-2022 Ligation clip, synthetic polymer, non-bioabsorbable ()[id number] FDA Start: 12-02-2022 Goals Date Patient Goal Desired Activity /State Functional Status Date Assessment Result Facility 12-02-2022 Functional status Ambulates;Bathroom Priv ilege [facility] Work Phone: Mental Status Date Assessment Result Facility 07-21-2023 Cognitive function Voice/Name [facility] Work Phone: 01-27-2023 Cognitive function Voice/Name [facility] Work Phone: 12-02-2022 Cognitive function Level Of Cons ciousness Awake;Alert;Appropriate;Follow s Commands [facility] Work Phone: 12-02-2022 Cognitive function Voice/Name [facility] Work Phone: Clinical Notes 09-28-2001 to 01-16-2025 Note Date & Type Note Facility 01-16-2025 Evaluation note Diagnosis Onset Date Resolution Atherosclerosis of [place] coronary artery of [place] heart without angina chronic January 16 9:27am Hyperlipidemia chronic January 16 025 9:27am 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, 2001 resolved January 16, 2025 9:27am [facility] Work Phone: [phone] [id number] Evaluation note* Diagnosis Onset Date Resolution Status Admit Date Atherosclerosis of re[place] coronary artery of [place] heart without angina chronic January 16 9:27am Hyperlipidemia chronic January 16 025 9:27am 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, 2001 resolved January 16, 2025 9:27am Asymptomatic varicose veins acute April 03, 2025 8:27am Fecal smearing acute April 10:32am Nocturia acute April 11 10:32am Post-menopausal atrophic vaginitis acute April 11, 2025 10:32am Stress incontinence acute Augus t 2024 10:32am Chronic UTI chronic April 11 10:32am [facility] Work Phone: 1([phone]) 188-603701-25-2024 Discharge summary Author Jennifer Dawit [facility] October 05, 2023 3:55pm Note Date/Time October 05, 2023 3 :55pm [facility] Physical Therapy [facility] [address] [place] [address] / REHABILITATION SERVICES DISCHARGE SUMMARY MR#: [id number] Acct: [id number] Name: EMELYN KRAMER Rep #: [id number] : 1950 73 From: Jennifer Pastor DPT, OCS, CSCS Referring Dr.: Dr. Devan May MD Status: REG RCR Insurance: MEDICARE PART A B [facility] Discharge Summary D/C summary: It has been [...] please feel free to call me at [phone]. Thank you for the referral of thispatient. Sincerely, Jennifer Pastor, DPT, OCS, CSCS Balance/Gait/Functional tests Balance/Special Test Scores Oswestry Neck Score: 14 <Electronically signed by Jennifer Pastor DPT, OCS, CSCS> 10/05/23 4486 CC: Dr. Devan May MD; Dr. Agata Maradiaga, DO ~ EBG Signed [facility] Work Phone: [phone] 487-730812-28-2023 Telephone encounter Note* Telephone Encounter - JANY Mendoza CNP - 09/07/2023 1:59 PM EST I spoke with pt. We discussed results of MRI brain. Med list shows she is taking Plavix daily. She states she is also taking ASA She says she feels much better since being off Amitriptyline. Scheduled for follow up in November [facility] Work Phone: 1(368) 497-450712-28-2023 Miscellaneous Notes* Telephone Encounter - JANY Mendoza CNP - 09/07/2023 1:59 PM EST I spoke with pt. We discussed results of MRI brain. Med list shows she is taking Plavix daily. She states she is also taking ASA She says she feels much better since being off Amitriptyline. Scheduled for follow up in November * Telephone Encounter - Sarah Pipre - 09/07/2023 8:51 AM EST Name of caller: Emelyn Contact phone number: [phone] Relationship to Patient: patient Provider: Dr. May Practice: [facility] [place] Chief Complaint/Reason for Call: Pt states that she would like to receive a cb to discuss her MRI results. Please advise. Best time of day caller can be reached:Any Patient advised that office/PCP has 24-48 business hours to return their call: No documented in this encounterSKnox [facility] [id number] Telephone encounter Note* Telephone Encounter - Sarah Feliz - 09/07/2023 8:51 AM EST Name of caller: Emelyn Contact phone number: [phone] Relationship to Patient: patient Provider: Dr. May Practice: [facility] [place] Chief Complaint/Reason for Call: Pt states that she would like to receive a cb to discuss her MRI results. Please advise. Best time of day caller can be reached:Any Patient advised that office/PCP has 24-48 business hours to return their call: No [id number] Discharge summary Author Jennifer Pastor [facility] August 07, 2023 2:04pm Note Date/Time August 07, 2023 2:05pm [facility] Physical Therapy [facility] [address] [place] [address] [address] [place] [address] / REHABILITATION SERVICES DISCHARGE SUMMARY MR#: [id number] Acct: [id number] Name: EMELYN KRAMER Rep #: [id number] : 1950 73 From: Jennifer Pastor DPT, OCS, CSCS Referring Dr.: Dr. Devan May MD Status: REG RCR Insurance: MEDICARE PART A B [facility] Discharge Summary D/C summary: It has been [...] please feel free to call me at [phone]. Thank you for the referral of thispatient. Sincerely, Jennifer Pastor, DPT, OCS, CSCS Balance/Gait/Functional tests Balance/Special Test Scores Oswestry Neck Score: 14 <Electronically signed by Jennifer Pastor DPT, OCS, CSCS> 08/07/23 1404 CC: Dr. Devan May MD; Dr. Agata Maradiaga, DO ~ EBG Signed [facility] Work Phone: 1([phone]) 573-544311-17-2023 History of Present illness Narrative* Devan May MD - 07/28/2023 1:30 PM EST Images from the original note were not included. [facility] [address] [place] [address] [facility] [address] Dept: [phone] Dept Loc: [phone] Devan May MD Thank you for your [...] she has had a workup in the [facility]. Unfortunately, I do not have the records for that nor do Ihave aaccess to those records. She reports that [...] TSH VITAMIN B12: No results found for: YFMGHYJO42 FERRITIN: No results found for: FERRITIN ---- No results found for: PHENYTOIN, PHENOBARB, VALPROATE, CBMZ No components found for: TOPIRANo results found for: OXCARBAZE, OXCARB @LASTAPPOINTMENTTHISPROV@ No image results found. @RESULTINGLABINFO@ No results found for: LEVETIRACETA, FERRITIN, CRP, NAFISA, ANCA No results found for: EDWARD, IMMUNOGLOBUL, OLIGOBANDS No results found for: VEH77AE, HEPCAB No results found for: CRP, ANATITER, [...] and arranging for studies. documented in this [facility]11-10-2023 History and physical note Author Martin Ochoa [facility] July 21, 2023 5:59am Note Date/Time July 21, 2023 5:58am [facility] Medical Records Department [address] [place] [address] History & Physical Exam 07/21/23 0557 MR#: [id number] Acct: [id number] Name: EMELYN KRAMER Rep #:[id number] : 1950 72 From: Martin Ochoa MD PCP: Dr. Agata Maradiaga, DO Status:[facility] Location: [place] [address] History and Physical Date of Admission: 07/21/23 [...] mg tablet,delayed release 81 mg PO QHS [facility] 05/31/16 [History Confirmed 06/26/23] fluticasone propionate 50 [...] 75 mg tablet 75 mg PO DAILY Poxel #90 tabs 03/23/20 [Rx Confirmed 06/26/23] metoprolol [...] DAILY 01/25/23 [History Confirmed 06/26/23] Lactobacillus comb no.3-TLO-abxekkjqon 300 million cell-250 mg capsule (Probiotic and [...] Medical History Adrenal insufficiency Anemia Atherosclerosis of re[place] coronary artery of [place] heart without angina pectoris AVNRT (AV elidia [...] Const General: cooperative, healthy appearing and comfortable [facility] Head: normal to inspection Eyes General: appearance [...] Cosigner Signature (if applicable): CC: Dr. Agata Maradiaga, DO; Dr. Martin Ochoa MD~ Signed [facility] Work Phone: 1(274) 839-144111-10-2023 Procedure [facility] 07-21-2023 Procedure [facility]06-26-2023 NoteHNO ID: [id number] Author: Alex Back MD Service: ? 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 Comments: Sexual Activity: Yes; Male Contraception: No contraception data on record PAST MEDICAL HISTORY Diagnosis Date Adrenal insufficiency (HCC) Arthritis, multiple joint involvement ATROPHIC VAGINITIS Coronary atherosclerosis of unspecified type of vessel, [place]sp[place] or graft 2007 Dr Gonzalez, s/p- stent Degenerative disc disease, cervical Diffuse cystic mastopathy Fibrocystic breast disease Hematuria 2010 benign after evaluation Hyperlipidemia Hypothyroidism Mild dysplasia of cervix 1998 Mitral valve prolapse OSTEOPENIA Other malaise and fatigue PAC (premature atrial contraction) Noted history of PACs Polymyalgia rheumatica (HCC) 1998 atypical, Dr Zuluaga Pure hypercholesterolemia SVT (supraventricular tachycardia) ([facility]) 2006 rarely now since had ablations done (not [...] external genitalia normal, normal Bartholin's glands, urethra, [place]'s glands, no vulvar lesions, no cervical lesions, [...] ordered other health scr (more content not included)...[facility] 12-02-2022 History and physical note Author Dr. Ochoa [facility] December 02, 2022 12:16pm Note Date/Time December 02, 2022 12: 16pm [facility] Medical Records Department [address] [place] [address] History & Physical Exam 12/02/22 1213 MR#: [id number] Acct: [id number] Name: EMELYN KRAMER Rep #:[id number] : 1950 72 From: Martin Ochoa MD PCP: Dr. Aagta Maradiaga, DO Status:[facility] Location: [place] [address] History and Physical Date of Admission: 12/02/22 [...] 75 mg tablet 75 mg PO DAILY [facility]90 tabs 03/23/20 [Rx Confirmed 11/21/22] metoprolol [...] PFSH Medical History? Adrenal insufficiency Atherosclerosis of re[place]-sparks coronary artery of [place] heart without angina pectoris AVNRT (AV elidia [...] any worse. She has recently returned from [place]. She is currently on Plavix for cardiac [...] healthy appearing, comfortable and no acute distress [facility] Head: normal to inspection Eyes General: appearance [...] tender to palpation. No true hernia palpated. Musc Cervical Spine: normal cervical lordosis Skin [...] Cosigner Signature (if applicable): CC: Dr. Agata Maradiaga, DO; Dr. Martin Ochoa MD~ Signed [facility] Work Phone: 1(266) 352-435408-24-2022 NoteHNO ID: [id number] Author: Wilmer Juarez V, DO Service: ? [...] by mouth twice daily CALCIUM CARBONATE-VITAMIN D [id number] Laila Hernandez 01-28-2011 [facility] ([id number]) gabapentin (NEURONTIN) 100 mg capsule 700 mg. [...] (FLONASE) 50 mcg/actuation nasal spray Use 1 [place] in each nostril daily at bedtime. clopidogrel (PLAVIX) 75 mg tablet Take 1 tablet by mouth once daily. nitroglycerin sublingual (NITROQUICK) 0.4 mg SL tablet nitroglycerin Nitroglycerin [Nitrostat] 0.4 MG SL NEEDED PRN For CHEST PAIN July 24, 2018 Active 07-24-2018 [facility] ([id number]) calcium carbonate (CALTRATE 600) 600 mg (1,500 mg) Tab Take 1 tablet by mouth twice daily. CPAP nightly No current facility-administered medications for this visit. MEDICAL HISTORY: PAST MEDICAL HISTORY Diagnosis Date Adrenal insufficiency (HCC) Arthritis, multiple joint involvement ATROPHIC VAGINITIS Coronary atherosclerosis of unspecified type of vessel, [place]sp[place] or graft 2007 Dr Gonzalez, s/p- stent Degenerative disc disease, cervical Diffuse cystic mastopathy Fibrocystic breast disease Hematuria 2010 benign after evaluation Hyperlipidemia Hypothyroidism Mild dysplasia of cervix 1998 Mitral valve prolapse OSTEOPENIA Other malaise and fatigue PAC (premature atrial contraction) Noted history of PACs Polymyalgia rheumatica (HCC) 1998 atypical, Dr Zuluaga Pure hypercholesterolemia SVT (supraventricular tachycardia) ([facility]) 2005 rarely now since had ablations done [...] Arthritis Daughter psoriatic a (more content not included)...[facility]08-24-2022 NoteHNO ID: [id number] Author: Ofelia Melissa Ma Service: ? Author Type: ? Type: Progress Notes Filed: 05/04/2022 3:34 PM Note Text: AMB ROOMING INTAKE FLOWSHEET DATA Risk Screening Do you have concerns about personal safety or safety in the home?: No Pain Pain Level: 2 Pain Location: Knee-Left Description: Aching, Dull Duration Amount of Time: 3 Duration Units: Weeks Frequency: Continuous Intervention/Comfort measure: Other: See comment (none)[facility]08-24-2022 NoteHNO ID: [id number] Author: RT Dottie(R) Service: ? Author Type: [...] BY: RT Dottie(R) May 04, 2022 2:05 [facility]08-24-2022 History of Present illness Narrative* Wilmer [...] carbonate / vitamin D CALCIUM CARBONATE-VITAMIN D [id number] TABS One tablet by mouth twice daily CALCIUM CARBONATE-VITAMIN D [id number] Laila Swartz Hernandez 01-28-2011 [facility] ([id number]) gabapentin (NEURONTIN) 100 mg capsule 700 mg. [...] (FLONASE) 50 mcg/actuation nasal spray Use 1 [place] in each nostril daily at bedtime. clopidogrel (PLAVIX) 75 mg tablet Take 1 tablet by mouth once daily. nitroglycerin sublingual (NITROQUICK) 0.4 mg SL tablet nitroglycerin Nitroglycerin [Nitrostat] 0.4 MG SL NEEDED PRN For CHEST PAIN July 24, 2018 Active 07-24-2018 [facility] ([id number]) calcium carbonate (CALTRATE 600) 600 mg (1,500 mg) Tab Take 1 tablet by mouth twice daily. CPAP nightly No current facility-administered medications for this visit. MEDICAL HISTORY: PAST MEDICAL HISTORY Diagnosis Date Adrenal insufficiency (HCC) Arthritis, multiple joint involvement ATROPHIC VAGINITIS Coronary atherosclerosis of unspecified type of vessel, [place]sp[place] or graft 2007 Dr Gonzalez, s/p- stent Degenerative disc disease, cervical Diffuse cystic mastopathy Fibrocystic breast disease Hematuria 2010 benign after evaluation Hyperlipidemia Hypothyroidism Mild dysplasia of cervix 1998 Mitral valve prolapse OSTEOPENIA Other malaise and fatigue PAC (premature atrial contraction) Noted history of PACs Polymyalgia rheumatica (HCC) 1998 atypical, Dr Zuluaga Pure hypercholesterolemia SVT (supraventricular tachycardia) ([facility]) 2006 rarely now since had ablations done (not [...] Other: See comment (none) [facility] History of Present illness Narrative* RT Dottie(R) [...] 04, 2022 2:05 PM documented in [facility]German [facility] History of Present illness Narrative* Alex Back MD - 02/16/2022 8:45 AM EDT Emelyn is a 71 year old who presents for an annual gynecologic exam without complaints. Postmenopausal: yes HRT use: No. 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 Comments: Sexual Activity: Yes; Male Contraception: No contraception data on record PAST MEDICAL HISTORY Diagnosis Date Adrenal insufficiency (HCC) Arthritis, multiple joint involvement ATROPHIC VAGINITIS Coronary atherosclerosis of unspecified type of vessel, [place]sp[place] or graft 2007 Dr Gonzalez, s/p- stent Degenerative disc disease, cervical Diffuse cystic mastopathy Fibrocystic breast disease Hematuria 2010 benign after evaluation Hyperlipidemia Hypothyroidism Mild dysplasia of cervix 1998 Mitral valve prolapse OSTEOPENIA Other malaise and fatigue PAC (premature atrial contraction) Noted history of PACs Polymyalgia rheumatica (HCC) 1998 atypical, Dr Zuluaga Pure hypercholesterolemia SVT (supraventricular tachycardia) ([facility]) 2005 rarely now since had ablations done [...] external genitalia normal, normal Bartholin's glands, urethra, [place]'s glands, no vulvar lesions, no cervical lesions, [...] needed Alex Back MD documented in this encounterGerman [facility]12-[facility] History of Past illness Narrative* Problem Noted Date Resolved Date Upper GI bleed 08/18/2011 03/12/2019 Overview: 09/200907/26/11 prepyloric ulcer Inguinal hernia 01/28/2011 07/06/2012 Female stress incontinence 01/17/200801/27 Other specified congenital anomaly of skin 12/2207/06/2012 Rheumatoid arthritis(714.0) 03/05/2003 06/02/2011 documented as of this encounter (statuses as of 12/07/2021) [facility] History of Past illness Narrative* Problem Noted Date Resolved Date Upper GI bleed 08/18/2011 03/12/2019 Overview: 09/200907/26/11 prepyloric ulcer Inguinal hernia 01/28/2011 07/06/2012 Female stress incontinence 01/17/200801/27 Other specified congenital anomaly of skin 12/2207/06/2012 Rheumatoid arthritis(714.0) 03/05/20030 02/2011 documented as of this encounter (statuses as of 02/16/2022) [facility] History of Past illness Narrative* Problem Noted Date Resolved Date Upper GI bleed 08/18/2011 03/12/2019 Overview: 09/200907/26/11 prepyloric ulcer Inguinal hernia 01/28/2011 07/06/2012 Female stress incontinence 01/17/200801/27 Other specified congenital anomaly of skin 12/2207/06/2012 Rheumatoid arthritis(714.0) 03/05/20030 02/2011 documented as of this encounter (statuses as of 05/04/2022) [facility] History of Past illness Narrative* Problem Noted Date Resolved Date Upper GI bleed 08/18/2011 03/12/2019 Overview: 09/200907/26/11 prepyloric ulcer Inguinal hernia 01/28/2011 07/06/2012 Female stress incontinence 01/17/200801/27 Other specified congenital anomaly of skin 12/2207/06/2012 Rheumatoid arthritis(714.0) 03/05/20030 02/2011 documented as of this encounter (statuses as of 05/05/2022) [facility] History of Past illness Narrative* Problem Noted Date Resolved Date Upper GI bleed 08/18/2011 03/12/2019 Overview: 09/200907/26/11 prepyloric ulcer Inguinal hernia 01/28/2011 07/06/2012 Female stress incontinence 01/17/200801/27 Other specified congenital anomaly of skin 12/2207/06/2012 Rheumatoid arthritis(714.0) 03/05/2003 06/02/2011 documented as of this encounter (statuses as of 05/03/2022) [facility] Evaluation note* Diagnosis Onset Date Resolution Status Polymyalgia rheumatica acute History of coronary artery stent placement December 14, 2007 chronic Hyperlipidemia chronic 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 02 resolved [facility] Work Phone: 1(204) 168-361401-18-2002 Evaluation note* Diagnosis Onset Date Resolution Status Left groin pain acute [id number] chronic Hyperlipidemia chronic 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 02 resolved Left groin pain acute [facility] Work Phone: 1(102) 740-599201-18-2002 Evaluation note* Diagnosis Onset Date Resolution Status [id number] chronic Hyperlipidemia chronic 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 resolved Left groin pain acute Left inguinal hernia acute Umbilical hernia acute Scoliosis of lumbar region d ue to degenerative disease of spine in adult acute [facility] Work Phone: Evaluation + Plan note No data available for this section [facility] Evaluation note* Diagnosis Encounter for screening mammogram for malignant neoplasm of breast- Primary Other screening mammogram [facility] Diagnosis Onset Date Resolution Status 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 Polymyalgia rheumatica acute Secondary adrenal insufficiency acute [facility] Work Phone: Evaluation note* Diagnosis Pap smear [...] Other postprocedural status [facility] this encounter [facility] Diagnosis Onset Date Resolution Status 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 Polymyalgia rheumatica acute Secondary adrenal insufficiency acute Contact with or suspected ex posure to other viral communicable disease acute Environmental allergies acut e [facility] Work Phone: Evaluation note* Diagnosis Contusion of left knee, initial encounter- Primary Status post revision of total knee replacement, left [facility] Diagnosis Left knee pain, unspecified chronicity [facility]* Diagnosis Left knee pain, unspecified chronicity- Primary [facility]* Diagnosis Onset Date Resolution Status Left groin pain acute Left inguinal hernia acute Umbilical hernia acute Scoliosis of lumbar region d ue to degenerative disease of spine in adult acute Right sided temporal headache acute Right sided temporal headache acute [facility] Work Phone: Evaluation note* Diagnosis Onset Date Resolution Status Occipital neuralgia acute Polymyalgia rheumatica acute Occipital neuralgia acute [facility] Work Phone: Evaluation note* Diagnosis New onset of headaches after age 50- Primary Cervico-occipital neuralgia Other syndromes affecting cervical region documented in this encounter [facility] note* Diagnosis Cervico-occipital neuralgia Other syndromes affecting cervical region [facility] encounter [facility] Diagnosis New onset of headaches after age 49 documented in this encounter [facility]* Diagnosis Onset Date Resolution Status Polymyalgia rheumatica acute Occipital neuralgia acute [facility] Work Phone: Hospital Discharge instructions No data available for this section [facility] Progress note No data available for this section [facility] Progrwjj note Author Martin Ochoa [facility] July 21, 2023 7:32am Note Date/Time July 21, 2023 7:32am [facility] Medical Records Department [address] [place] [address] Progress Note 07/21/23 0731 MR#: [id number] Acct: [id number] Name: EMELYN KRAMER Rep #:[id number] : 1950 72 From: Martin Ochoa MD PCP: Dr. Agata Maradiaga, DO Status:[facility] Location: [place] [address] Progress Note If patient continues to have soft dysphagia and food getting stuck then would consider esophageal manometry. Martin Ochoa M.D., F.A.C.S. 07/21/23 0732 <Electronically signed by Martin Ochoa MD> Martin Ochoa MD Cosigner Signature (if applicable): CC: ~ Signed [facility] Work Phone: Reason for referral (narrative)* Diagnostic Procedure Only (Routine) - Pending Review Specialty Diagnoses / Procedures Referred By Contac t Referred To Contact [facility] Diagnoses Encounter for screening mammogram for malignant neoplasm of breast Procedures TOO SCREENING SCREENING MAMMOGRAPHY BI 2-VIEW BREAST INC CAD Alex Back MD [address] [address] [facility] [address] [place] [address] Referral ID Status Reason Start Date Expiration Date Visits Requested Visits Authorized [id number] Pending Review Auto-Generat ed Referral 12/07/2021 01/05/2023 1 1 [facility] for referral (narrative)* Diagnostic Procedure Only (Routine) - Closed Specialty Diagnoses / Procedures [facility] XR IMAGING Diagnoses Left knee pain, unspecified chronicity Procedures XR KNEE GENERAL 4V AP BOTH/PA BOTH/LAT/MERC LEFT RADIOLOGIC EXAM KNEE COMPLETE 4/MORE VIEWS Wilmer Juarez V DO [address] [place] [address] Xr Imaging Referral ID Status Reason Start Date Expiration Date V isits Requested Visits Authorized [id number] Closed Auto-Generate d Referral 05/03/2022 06/02/2023 1 1 T [facility] for referral (narrative)* Diagnostic Procedure Only (Routine) - Pending Review Specialty Diagnoses / Procedures Referred By Contac t Referred To Contact XR IMAGING Diagnoses Left knee pain, unspecified chronicity Procedures XR KNEE GENERAL 4V AP BOTH/PA BOTH/LAT/MERC LEFT RADIOLOGIC EXAM KNEE COMPLETE 4/MORE VIEWS Wilmer Juarez V DO [address] [place] [address] Xr Imaging Referral ID Status Reason Start Date Expiration Date Visits Requested Visits Authorized [id number] Pending Review Auto-Generat ed Referral 05/03/2022 06/02/2023 1 1 [facility]No reason for referral [facility] Work Phone: Reason for visit Narrative* Diagnostic Procedure Only (Routine) - Closed Specialty Diagnoses / Procedures Referred By Contac t Referred To Contact XR IMAGING Diagnoses Left knee pain, unspecified chronicity Procedures XR KNEE GENERAL 4V AP BOTH/PA BOTH/LAT/MERC LEFT RADIOLOGIC EXAM KNEE COMPLETE 4/MORE VIEWS Wilmer Juarez V, DO [address] [place] [address] Xr Imaging Referral ID Status Reason Start Date Expiration Date V isits Requested Visits Authorized [id number] Closed Auto-Generate d Referral 05/03/2022 06/02/2023 1 1 [facility] Summary Purpose Family History No Family History Records Found Relationship Condition Age at Onset Recorded Date/T lynda Not Specified Cardiac disease Unknown Disorder of thyroid Unknown Relationship Condition Age at Onset Recorded Date/T lynda Not Specified Cardiac disease Unknown Malignant neoplasm of breast Unknown Disorder of thyroid Unknown Advance Directives No Advanced Directives Records FoundDocuments on File Type Date Recorded Patient Project Hire Expl anation Advance Directive(s) 12/14/2017 8:26 AM Advance Directive Response Recorded Date/ Time Advance Directives Yes June 13, 2016 1:17pm Living Will No July 14 1:56pm Power of Human Services Manager No July 14, 2019 1:56pm Documents on File Type Date Recorded Patient Project Hire Expl anation Advance Directive(s) 12/14/2017 8:26 AM Advance Directive Response Recorded Date/ Time Name of Medical Power of Human Services Manager SPOUSE/ENIO R November 25, 2022 2:15pm Advance Directives Yes June 13, 2016 1:17pm Living Will No July 14 1:56pm Power of Human Services Manager No July 14, 2019 1:56pm Advance Directive Response Recorded Date/ Time Name of Medical Power of Human Services Manager SPOUSE/ENIO Andino November 25, 2022 2:15pm Advance Directives Yes June 13, 2016 1:17pm Living Will No January 25, 2023 3 :04pm Power of Human Services Manager No January 25, 2023 3:04pm Advance Directive Response Recorded Date/ Time Advance Directives Yes June 13, 2016 12:17pm Living Will No January 25, 2023 2 :04pm Power of Human Services Manager No January 25, 2023 2:04pm Advance Directive Response Recorded Date/ Time Name of Medical Power of Human Services Manager DAUGHTER July 20, 2023 11:17am Advance Directives Yes June 13, 2016 12:17pm Living Will Yes July 20 11:17am Power of Human Services Manager Yes July 20, 2023 11:17am Advance Directive Response Recorded Date/ Time Living Will Yes July 20 12:17pm Do you have a Healthcare Power of Human Services Manager? Yes July 20, 2023 12:17pm Advance Directives Yes June 13, 2016 1:17pm Advance Directive Response Recorded Date/ Time Living Will Yes July 20 12:17pm Do you have a Healthcare Power of Human Services Manager? Yes July 20, 2023 12:17pm Advance Directives Yes April 15 10:02am Chief Complaint and Reason for Visit Chief Complaint SCREENING PREVIOUS PATIENT IN [facility]. Reason for Visit Hypothyroidism due t o Romel's thyroiditis Polymyalgia rheumatica Secondary adrenal insufficiency Chief Complaint SCREENING PREVIOUS PATIENT IN [facility]. UTI LEFT GROIN PAIN Reason for Visit Hypothyroidism due t o Romel's thyroiditis Polymyalgia rheumatica Secondary adrenal insufficiency Chief Complaint SCREENING PREVIOUS PATIENT IN [facility]. UTI LEFT GROIN PAIN HYDRONEPHROSIS Reason for Visit Hypothyroidism due t o Romel's thyroiditis Polymyalgia rheumatica Secondary adrenal insufficiency Chief Complaint SCREENING PREVIOUS PATIENT IN [facility] LEFT GROIN PAIN HYDRONEPHROSIS MUSCLE/WEKNESS RT HIP *RT HIP REPLACEMENT* Reason for Visit Hypothyroidism due t o Romel's thyroiditis Polymyalgia rheumatica Secondary adrenal insufficiency Chief Complaint SCREENING PREVIOUS PATIENT IN [facility]. UTI LEFT GROIN PAIN HYDRONEPHROSIS MUSCLE/WEKNESS RT [...] MESH Reason for Visit Left groin pain [id number] Hyperlipidemia AVNRT (AV elidia re-entry tachycardia) Left groin pain Chief Complaint 6 M FU Update H&P PREOP LAP LT ING HERNIA MESH LAP LT ING HERNIA MESH HERNIA 3/24 LUMBAR SPINE Xray room 4 Reason for Visit [id number] Hyperlipidemia AVNRT (AV elidia re-entry tachycardia) Left groin pain Left inguinal hernia Umbilical hernia Scoliosis of lumbar region due to degenerative disease of spine in adult Chief Complaint 6 M FU Update H&P PREOP LAP LT ING HERNIA MESH LAP LT ING HERNIA MESH HERNIA 324 LUMBAR SPINE Xray room 4 C-REACTICE PROTEIN,CBC,ERTHROCYTE SED RATE Reason for Visit [id number] Hyperlipidemia AVNRT (AV elidia re-entry tachycardia) Left groin pain Left inguinal hernia Umbilical hernia Scoliosis of lumbar region due to degenerative disease of spine in adult Chief Complaint Update H&P PREOP LAP LT ING HERNIA MESH LAP LT ING HERNIA MESH HERNIA 324 LUMBAR SPINE Xray room 4 C-REACTICE PROTEIN,CBC,ERTHROCYTE [...] for Visit Polymyalgia rheumati ca Occipital neuralgia Chief Complaint Admit Date 1 Y FU January 16, 2025 9:27am CAD February 27, 2025 6:39 am Coronary artery disease February 27, 2025 4:37pm Amb Documentation February 28, 2025 10:3 2am SCREENING March 04, 2025 12:4 6pm Reason for Visit Admit Date Atherosclerosis of [place] ronary artery of [place] heart without angina January 16, 2025 9:27am Hyperlipidemia January 16, 2025 9:27am AVNRT (AV elidia re-entry tachycardia) Ma 2024 9:27am Chief Complaint Admit Date 1 Y January 16, 2025 9:27am CAD February 27, 2025 6:39 am Coronary artery disease February 27, 2025 4:37pm Amb Documentation February 28, 2025 10:3 2am SCREENING March 04, 2025 12:4 6pm Varicose Veins/Bulging Veins April 03, 2025 8:27am Chief Complaint Admit Date 1 Y FU January 16, 2025 9:27am CAD February 27, 2025 6:39 am Coronary artery disease February 27, 2025 4:37pm Amb Documentation February 28, 2025 10:3 2am SCREENING March 04, 2025 12:4 6pm Varicose Veins/Bulging Veins April 03, 2025 8:27am 12mo UTI F/U April 11, 2025 10: 32am Reason for Visit Admit Date Atherosclerosis of [place] ronary artery of [place] heart without angina January 16, 2025 9:27am Hyperlipidemia January 16, 2025 9:27am AVNRT (AV elidia re-entry tachycardia) Ma 2024 9:27am Asymptomatic varicose veins April 03, 2 025 8:27am Fecal smearing April 11, 2025 10: 32am Nocturia April 11, 2025 10: 32am Post-menopausal atrophic vaginitis Augus 2024 10:32am Stress incontinence April 11, 2025 10: 32am Chronic UTI April 11, 2025 10: 32am Chief Complaint Admit Date 1 Y FU January 16, 2025 9:27am CAD February 27, 2025 6:39 am Coronary artery disease February 27, 2025 4:37pm Amb Documentation February 28, 2025 10:3 2am SCREENING March 04, 2025 12:4 6pm Varicose Veins/Bulging Veins April 03, 2025 8:27am 12mo UTI F/U April 11, 2025 10: 32am XRAY April 15, 2025 10: 03am Reason for Referral Specialty Diagnoses / Procedures Referred By Contac t Referred To Contact Physical Therapy Diagnoses Cervico-occipital neuralgia Procedures SD OFFICE/OUTPATIENT NEW HIGH MDM 60-74 MINUTES Devan May MD [address] [facility] [address] [place] [address] Referral ID Status Reason Start Date Expiration Date Visits Requested Visits Authorized [id number] Pending Review Eval and Treat 01/24/2024 99 99 Specialty Diagnoses / Procedures Referred By Contac t Referred To Contact Radiology Diagnoses New onset of headaches after age 50 Procedures MR brain w and wo contrast Devan May MD [address] [facility] [address] [place] [id number] Referral ID Status Reason Start Date Expiration Date V isits Requested Visits Authorized [id number] Pending Review 07/28/2023 07/27/2024 1 1 Additional Source Comments INFORMATION SOURCE (unrecogn ized section and content) DATE CREATED AUTHOR 03/01/2018 [facility] DATE CREATED AUTHOR AUTHOR'S ORGANIZ ATION 11/19/2019 [facility] DATE CREATED AUTHOR AUTHOR'S ORGANIZ ATION 02/21/2022 [facility] DATE CREATED AUTHOR AUTHOR'S ORGANIZ ATION 03/11/2023 [facility] DATE CREATED AUTHOR AUTHOR'S ORGANIZ ATION 09/09/2023 [facility] DATE CREATED AUTHOR AUTHOR'S ORGANIZ ATION 07/23/2025 [facility] Source Comments (unrecognize d section and content) In the event this informatio n is protected by the Federal Confidentiality of Alcohol and Drug Abuse Patient Records regulations: The Federal rules restrict any use of the information to criminally investigate or prosecute any alcohol or drug abuse patient.[facility] the event this information is protected by the Federal Confidentiality of Alcohol and Drug Abuse Patient Records regulations: The Federal rules restrict any use of the information to criminally investigate or prosecute any alcohol or drug abuse patient.[facility] the event this information is protected by the Federal Confidentiality of Alcohol and Drug Abuse Patient Records regulations: The Federal rules restrict any use of the information to criminally investigate or prosecute any alcohol or drug abuse patient.[facility] the event this information is protected by the Federal Confidentiality of Alcohol and Drug Abuse Patient Records regulations: The Federal rules restrict any use of the information to criminally investigate or prosecute any alcohol or drug abuse patient.[facility] the event this information is protected by the Federal Confidentiality of Alcohol and Drug Abuse Patient Records regulations: The Federal rules restrict any use of the information to criminally investigate or prosecute any alcohol or drug abuse patient.[facility] Care Teams (unrecognized sec tion and content) Ensemble Member Relationship Specialty Start Date End Date Ashwini Agata Armando DO [address] [place] [address] PCP - General Family Practice 10/22/16 Ensemble Member Relationship Specialty Start Date End Date Agata Maradiaga DO [address] [place] [address] PCP - General Family Practice 10/22/16 Ensemble Member Relationship Specialty Start Date End Date Ashwini Agata Tr [address] [place] [address] PCP - General Family Practice 10/22/16 Ensemble Member Relationship Specialty Start Date End Date Ashwini Agata Armando DO [address] [place] [address] PCP - General Family Practice 10/22/16 Ensemble Member Relationship Specialty Start Date End Date Agata Maradiaga DO [address] [place] [address] PCP - General Family Practice 10/22/16 Team Status: Active Member Role Status Dates Dr. Agata Maradiaga DO Family Provider Active Dr. Agata Maradiaga DO Primary Care Provider Active Team Status: Inactive Member Role Status Dates Dr. Agata Maradiaga DO Primary Care ProviderAmadou g Provider Active Lebron Nicole [employer], [employer]-C Attending Provider Active Team Status: Inactive Member Role Status Dates Dr. Agata Maradiaga DO Primary Care Provider, Referrin g Provider Active Dr. Martin Ochoa MD Attending Provider Active Team Status: Inactive Member Role Status Dates Dr. Agaat Maradiaga DO Primary Care Provider, Referrin g Provider Active Joyce POPE PA-C Attending Provider Active Team Status: Active [...] DO Primary Care Provider Active Dr. Alex Back MD Attending Provider, Referring Provider Active Team Status: Inactive Member Role Status Dates Dr. Agata Maradiaga DO Primary Care Provider Active Dr. Shayan Hardy MD Attending Provider, Referr ing Provider Active Team Status: Inactive Member Role Status Dates Dr. Agata Maradiaga DO Primary Care Provider Active Joyce POPE PALelaC Attending Provider, Referring Provider Active Team Status: Active Member Role Status Dates Dr. Agata Maradiaga DO Primary Care Provider, Referrin g Provider Active Dr. Martin Ochoa MD Attending Provider, Other Prov ider Active Ensemble Member Relationship Specialty Start Date End Date Agata Maradiaga [address] [place] [phone] PCP - General Family Medicine 07/28/23 Ensemble Member Relationship Specialty Start Date End Date Agata Maradiaga [address] [place] [phone] PCP - General Family Medicine 07/28/23 Team Status: Inactive Member Role Status Dates Dr. Agata Maradiaga DO Primary Care Provider Active Flor Randhawa NP-C Attending Provider, Referring Prov ider Active Ensemble Member Relationship Specialty Start Date End Date Agata Maradiaga [address] [place] [address] PCP - General Family Medicine 07/28/23 Ensemble Member Relationship Specialty Start Date End Date Agata Maradiaga [address] [place] [address] PCP - General Family Medicine 07/28/23 Team Status: Inactive Member Role Status Dates Dr. Agata Maradiaga DO Primary Care Provider Active Dr. Devan May MD Attending Provider, Referring Pro vider Active Team Status: Active Member Role Status Dates Dr. Agata Maradiaga DO Primary Care Provider Active Team Status: Inactive Member Role Status Dates Dr. Agata Maradiaga DO Primary Care Provider Active Start: January 16, 2025 End: January 16, 2025 Dr. Agata Maradiaga DO Referring Provider Active Start: January 16, 2025 End: January 16, 2025 Mari Caal [employer], [employer]-C Attending Provider Active Start: January 16, 2025 End: January 16, 2025 Team Status: Inactive Member Role Status Dates Dr. Agata Maradiaga DO Primary Care Provider Active Start: February 27, 2025 End: February 27, 2025 Mari Caal [employer], [employer] OP-C Attending Provider Active Start: February 27, 2025 End: February 27, 2025 Mari Caal [employer], [employer] OP-C Referring Provider Active Start: February 27, 2025 End: February 27, 2025 Mary Kate Kramer PA, PA Other Provider Active Start: February 27, 2025 End: February 27, 2025 Team Status: Active Member Role Status Dates Dr. Agata Maradiaga DO Primary Care Provider Active Start: February 27, 2025 Mari Caal [employer] OP, [employer] OP-C Referring Provider Active Start: February 27, 2025 Mari Caal [employer] OP, [employer] OP-C Other Provider Active Sta rt: February 27, 2025 Mary Kate Kramer PA, PA Other Provider Active Start: February 27, 2025 Dr. Sunny Gonzalez MD Attending Provider Active S tart: February 27, 2025 Team Status: Active Member Role Status Dates Dr. Agata Maradiaga DO Primary Care Provider Active Start: February 28, 2025 Mari Caal [employer], [employer] OP-C Attending Provider Active Start: February 28, 2025 Team Status: Active Member Role Status Dates Dr. Agata Maradiaga DO Primary Care Provider Active Start: March 04, 2025 Dr. Alex Back MD Attending Provider Active Start: March 04, 2025 Dr. Alex Back MD Referring Provider Active Start: March 04, 2025 Team Status: Active Member Role/Relationship Status Dates Dr. Agata Maradiaga DO Primary Care Provider Active Team Status: Inactive Member Role/Relationship Status Dates Dr. Agata Maradiaga DO Primary Care Provider Active Start: January 16, 2025 End: January 16, 2025 Dr. Agata Maradiaga DO Referring Provider Active Start: January 16, 2025 End: January 16, 2025 Mari Caal [employer], [employer] OP-C Attending Provider Active Start: January 16, 2025 End: January 16, 2025 Team Status: Inactive Member Role/Relationship Status Dates Dr. Agata Maradiaga DO Primary Care Provider Active Start: February 27, 2025 End: February 27, 2025 Mari Caal [employer], [employer] OP-C Attending Provider Active Start: February 27, 2025 End: February 27, 2025 Mari Caal [employer], [employer] OP-C Referring Provider Active Start: February 27, 2025 End: February 27, 2025 Mary Kate POPE, PA Other Provider Active Start: February 27, 2025 End: February 27, 2025 Team Status: Active Member Role/Relationship Status Dates Dr. Agata Maradiaga DO Primary Care Provider Active Start: February 27, 2025 Mari Caal [employer], [employer] OP-C Referring Provider Active Start: February 27, 2025 Mari Caal [employer], [employer] OP-C Other Provider Active Sta rt: February 27, 2025 Mary Kate POPE, PA Other Provider Active Start: February 27, 2025 Dr. Sunny Gonzalez MD Attending Provider Active S tart: February 27, 2025 Team Status: Active Member Role/Relationship Status Dates Dr. Agata Maradiaga DO Primary Care Provider Active Start: February 28, 2025 Mari Caal [employer], [employer] OP-C Attending Provider Active Start: February 28, 2025 Team Status: Inactive Member Role/Relationship Status Dates Dr. Agata Maradiaga DO Primary Care Provider Active Start: March 04, 2025 End: March 04, 2025 Dr. Alex Back MD Attending Provider Active Start: March 04, 2025 End: March 04, 2025 Dr. Alex Back MD Referring Provider Active Start: March 04, 2025 End: March 04, 2025 Team Status: Inactive Member Role/Relationship Status Dates Dr. Agata Maradiaga DO Primary Care Provider Active Start: March 11, 2025 Dr. Ellyn Sommer MD Attending Provider Active Start: March 11, 2025 Team Status: Inactive Member Role/Relationship Status Dates Dr. Agata Maradiaga DO Primary Care Provider Active Start: April 03, 2025 End: April 03, 2025 Dr. Agata Maradiaga DO Referring Provider Active Start: April 03, 2025 End: April 03, 2025 NIKO Enriquez Attending Provider Active Star t: April 03, 2025 End: April 03, 2025 Team Status: Inactive Member Role/Relationship Status Dates Dr. Agata Maradiaga DO Primary Care Provider Active Start: April 11, 2025 End: April 11, 2025 Dr. Agata Maradiaga DO Referring Provider Active Start: April 11, 2025 End: April 11, 2025 Dr. Ellyn Sommer MD Attending Provider Active Start: April 11, 2025 End: April 11, 2025 Team Status: Inactive Member Role/Relationship Status Dates Dr. Agata Maradiaga DO Primary Care Provider Active Start: April 15, 2025 End: April 15, 2025 Dr. Sunny Gonzalez MD Attending Provider Active S tart: April 15, 2025 End: April 15, 2025 Goals (unrecognized section and content) Goals may [...] Headache Specialty Diagnoses / Procedures Referred By Gilberto prater Referred To Contact Neurology Diagnoses Headache, unspecified Procedures SD OFFICE/OUTPATIENT NEW MODERATE MDM 45-59 MINUTES Agata Maradiaga [address] [place] [address] Devan May MD [address] [address] Referral ID Status Reason Start Date Expiration Date Visits Re quested Visits Authorized [id number] Closed 07/28/2023 07/28/2024 1 1 Specialty Diagnoses / Procedures Referred By Gilberto prater Referred To Contact Radiology Diagnoses New onset of headaches after age 50 Procedures MR brain w and wo contrast Devan May MD [address] [address] Referral ID Status Reason Start Date Expiration Date Visits Re quested Visits Authorized [id number] Closed 07/28/2023 07/27/2024 1 1 Reason Onset [...] BE BASED ON THE PRIMARY CLINICAL RECORDS. [facility] [employer] [facility]. provides no warranty or guarantee of the accuracy or completeness of information in this document.
--- NOTE | 2025-08-18 06:46 | PCM.PRE.AN2 ---
ASA Classification* ASA Classification ASA Classification: 3 Assessment & Plan Anesthesia* Anesthesia Assessment Anesthesia Assessment: Discussed sedation and/or anesthesia options, risks, benefits, and alternatives with patient/parents/legal guardian/POA. Questions invited. The patient/parents/legal guardian/POA seems to understand and agrees to proceed with anesthesia plan. Reviewed the physical assessment, medical history, allergy history and patient home medications list prior to surgery/procedure/anesthetic and documented any changes. Performed airway and anesthesia risk assessments. Anesthesia Type Anesthesia Type: General and Block Anesthesia Focused Assessment* Airway Assessment Mouth opens: >3 cm Mallampati Score: II Labs Anesthesia Preop lab: CBC WBC, (4.4-11.0) 9.1 K/mm3 07/24/25, 14:18 RBC, (4.2-5.4) 3.17 M/mm3 L 07/24/25, 14:18 Hgb, (12.0-15.0) 10.4 g/dL L 07/24/25, 14:18 Hct, (37-47) 32.2 % L 07/24/25, 14:18 Plt Count, (150-450) 372 K/mm3 07/24/25, 14:18 CHEMISTRY Potassium, (3.3-5.1) 4.3 mmol/L 07/24/25, 14:18 Sodium, (133-145) 142 mmol/L 07/24/25, 14:18 Magnesium, (1.5-2.2) 2.1 mg/dL 07/24/25, :18 BUN, (4-19) 17 mg/dL 07/24/25, 14:18 Creatinine, (0.70-1.20) 0.78 mg/dL 07/24/25, 14:18 Glucose, (70-99) 104 mg/dL H 07/24/25, 14:18 TSH, (0.300-4.200) 3.370 uIU/mL 07/24/25, 14:18 COAG PT, (11.7-14.9) 11.9 SECONDS 05/11/18, 04:46 Pre-Assessment Diagnosis/Proposed Procedure Planned Operative Procedure(s): ERAS RIGHT REVERSE TOTAL SHOULDER ARTHROPLASTY Anesthesia History Anesthesia History - director internal control: Anesthesia History - director internal control Hx Hospitalization No: . 08/01/25 16:03 Any Problems With Anesthesia No 08/01/25 16:03 Cholinesterase deficiency No 08/01/25 16:03 You/Your Family Experience No 08/01/25 16:03 fever (hyperthermia) with Relationship Recent Exposure to Contagious No 04/15/25 10:02 Disease Does patient have nerve No 08/01/25 16:03 stimulator Patient instructed to have device shut off --Does patient have Pacemaker or ICD? When Was Last Pacemaker Check QUESTION #4 FULL TEXT: You/Your Family Experience fever (hyperthermia) with Anesthesia Last Oral Intake Last Oral intake: Last Oral Intake NPO since Meds taken in AM with sips of water? Meds patient instructed to take am of surgery PONV PONV - director internal control: PONV - director internal control Female Yes 08/01/25 16:03 HX of Motion Sickness No 08/01/25 16:03 HX of N/V After Surgery No 08/01/25 16:03 Non-Smoker Yes 08/01/25 16:03 Duration of Surgery greater Yes 08/01/25 16:03 than 60 minutes Number of Risk Factors 3 08/01/25 16:03 PONV Score Moderate Risk 08/01/25 16:03 Height & Weight Height & Weight: Anesthesia: Height & Weight Height 5 ft 5 in 08/15/25 08:57 Weight: 74.843 kg 08/15/25 08:57 Respiratory Assessment Respiratory Assessment - director internal control: Respiratory Tract Infection Hx - director internal control Hx Respiratory Tract Infection No 08/01/25 16:03 STOP Sleep Apnea STOP Sleep Apnea - director internal control: STOP Sleep Apnea - director internal control Hx Hypertension Yes: CONTROLLED WITH MED 08/01/25 16:03 Hx Sleep Apnea Yes 08/01/25 16:03 CPAP Yes 08/01/25 16:03 BIPAP No 08/01/25 16:03 Do you snore loudly (louder than talking or can be heard Do you often feel tired/ fatigued/ sleepy during daytime? Has anyone observed you stop breathing during sleep? STOP Results Positive 08/01/25 16:03 QUESTION #5 FULL TEXT : Do you snore loudly (louder than talking or can be heard through closed doors)? 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 Specify any problems Hx of Preganancy in last 3 No 08/01/25 16:03 Months Nurse Filling Out Transfusion DSCHRIBER 08/01/25 16:03 & Questions: Date: 08/01/25 08/01/25 16:03 Time: 16:05 08/01/25 16:03 Patient unable to answer at this time (ie. confused, unrespo /Reproduction History /Reproductive History - director internal control: /Reproductive Hx- director internal control Hx Now No 08/01/25 16:03 Gestational Age (in weeks): EDC: Hx Hx Para Hx Section SAB No 08/01/25 16:03 Does the father of the baby or his family experience fever w Father of the baby Malignant Hypertension history comment Active Medications Active Medications: Current Medications Generic Name Dose Route Start Last Admin Trade Name Freq PRN Reason Stop Dose Admin Acetaminophen 1,000 mg 08/18/25 07:30 Acetaminophen 500 Mg Tablet PO 08/18/25 07:31 PREOP ONE Acetaminophen 1,000 mg 08/18/25 14:00 Acetaminophen 500 Mg Tablet PO Q8 MECHELLE Aspirin 81 mg 08/18/25 10:00 Aspirin 81 Mg Tab.Chew PO BID MECHELLE Dexamethasone Sodium Phosphate 10 mg 08/18/25 07:30 Dexamethasone 10 Mg/Ml Vial IV 08/18/25 07:31 INTRAOP ONE Enteral Nutritional Formula 237 ml 08/18/25 08:00 Ensure Surgery 237 Ml Liquid PO TIDCM MECHELLE Famotidine 20 mg 08/18/25 10:00 Famotidine 20 Mg Tablet PO DAILY MECHELLE Gabapentin 600 mg 08/18/25 07:30 Gabapentin 600 Mg Tablet PO 08/18/25 07:31 PREOP ONE Lactated Ringer's 1,000 mls @ 999 mls/hr 08/18/25 07:30 IV 08/18/25 08:30 .Q1H1M MECHELLE Cefazolin Sodium 2 gm/ Sodium 110 mls @ 150 mls/hr 08/18/25 07:30 Chloride IV 08/18/25 08:13 INTRAOP ONE Tranexamic Acid 1,000 mg/ 110 mls @ 660 mls/hr 08/18/25 07:30 Sodium Chloride IV 08/18/25 07:39 INTRAOP ONE Tranexamic Acid 1,000 mg/ 110 mls @ 660 mls/hr 08/18/25 07:30 Sodium Chloride IV 08/18/25 07:39 INTRAOP ONE Lactated Ringer's 1,000 mls @ 999 mls/hr 08/18/25 08:30 IV 08/18/25 09:30 .Q1H1M [facility] Lactated Ringer's 1,000 mls @ 125 mls/hr 08/18/25 09:30 IV 08/18/25 17:29 .Q8H MECHELLE Vancomycin HCl 1,250 mg/ 275 mls @ 167 mls/hr 08/18/25 07:30 Sodium Chloride IV 08/18/25 09:08 INTRAOP ONE Magnesium Sulfate 1 gm/ 102 mls @ 408 mls/hr 08/18/25 07:30 Dextrose IV 08/18/25 07:44 PREOP ONE Cefazolin Sodium 1 gm in 50 mls @ 100 mls/hr 08/18/25 06:15 IV 08/18/25 14:44 Q8H [facility] Insulin Human Lispro 1 - 6 unit 08/18/25 07:30 Insulin Lispro 100 Unit/Ml Insuln.Pen SC 08/18/25 13:30 Q4H PRN PRN BG>/= 180, SEE PROTOCOL Protocol Morphine Sulfate 2 - 4 mg 08/18/25 06:15 Morphine 2 Mg/Ml Syringe IV Q2H PRN PRN Pain Score 4-10 Ondansetron HCl 4 mg 08/18/25 06:15 Ondansetron 4 Mg/2 Ml Vial IV Q6H PRN PRN NAUSEA/VOMITING Oxycodone HCl 5 - 10 mg 08/18/25 06:15 Oxycodone 5 Mg Tablet PO Q4H PRN PRN Pain Score 4-10 Promethazine HCl 12.5 mg 08/18/25 06:15 Promethazine 25 Mg Tablet PO Q6H PRN PRN NAUSEA/VOMITING Promethazine HCl 12.5 mg 08/18/25 06:15 Promethazine 25 Mg/Ml Syringe IM Q6H PRN PRN NAUSEA/VOMITING Senna/Docusate Sodium 2 tablet 08/18/25 10:00 Senna/Docusate Sodium 1 Tablet PO BID [facility] Medical History History of stress test Cardiology follow-up encounter Mitral valve prolapse Headache Polyp of esophagus Occipital neuralgia of right side Umbilical hernia Wears glasses History of steroid therapy Osteoporosis Frequent UTI Anemia Restless legs Injury of head and neck Injury of back Migraine headache Syncope Difficulty swallowing Non-smoker CPAP (continuous positive airway pressure) dependence Shortness of breath on exertion Leg cramps History of pain when walking Hypertension Contusion of left knee Left knee pain Polymyalgia rheumatica 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 COVID-19 Adrenal insufficiency Osteoarthritis 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) Atherosclerosis of [place] coronary artery of [place] heart without angina pectoris Hyperlipidemia Supraventricular tachycardia Hypothyroidism (acquired) Obstructive sleep apnea Thoracic spondylosis Myofascitis Polymyalgia rheumatica History of GI bleed Home Medications ?Medication ?Instructions ?Recorded ?Last Taken ?Type aspirin 81 mg tablet,delayed 81 mg PO QHS heart health 05/31/16 08/17/25 History release fluticasone propionate 50 2 spray NASAL QHS nasal lubricant 05/31/16 08/17/25 History mcg/actuation nasal spray,suspension omeprazole 40 mg capsule,delayed 40 mg PO DAILY GERD 05/31/16 08/18/25 05:30 History release venlafaxine 37.5 mg tablet 37.5 mg PO QHS depression 05/31/16 08/17/25 History calcium 600 mg (as 2 tab PO DAILY@1500 supplement 05/11/18 08/13/25 History carbonate)-vitamin D3 20 mcg (800 unit) tablet metoprolol succinate 25 mg 25 mg PO DAILY 04/16/21 08/18/25 05:30 History tablet,extended release 24 hr tramadol 50 mg tablet 50 mg PO .BID-TID 04/16/21 08/18/25 05:30 History cetirizine 10 mg capsule 10 mg PO QHS ALLERGIES 04/27/22 08/13/25 History ascorbate calcium (vitamin C) 500 500 mg PO QHS 05/10/22 08/13/25 History mg tablet levothyroxine 137 mcg tablet 137 mcg PO DAILY #90 tabs 05/10/22 08/18/25 05:30 Rx Clear Nails 1 tab PO/SL DAILY 01/25/23 08/13/25 History Lactobacillus comb 1 cap PO DAILY 01/25/23 08/13/25 History no.2-JFU-hhvexbikyq 300 million cell-250 mg capsule (Probiotic and Acidophilus) d-mannose 500 mg capsule 2,100 mg PO DAILY 01/25/23 08/13/25 History temazepam 15 mg capsule 15 mg PO QHS PRN Sleep 01/25/23 Unknown History alirocumab 150 mg/mL subcutaneous 150 mg subcut Q2W #6 mL 12/16/24 08/10/25 Rx pen injector (Praluent Pen) magnesium 200 mg tablet 1,000 mg PO QHS 04/11/25 08/13/25 History HORSERADISH TREE 1,600 mg PO DAILY 08/01/25 08/13/25 History IQ BLAST 2 cap PO QPM 08/01/25 08/13/25 History clopidogrel 75 mg tablet 75 mg PO 1500 heart health 08/01/25 08/13/25 History ferrous sulfate 325 mg (65 mg 325 mg PO DAILY 08/01/25 08/17/25 History iron) tablet folic acid 800 mcg tablet 800 mcg PO DAILY 08/01/25 08/17/25 History gabapentin 300 mg capsule 300 mg PO BID 08/01/25 08/17/25 History prednisone 1 mg tablet 2 mg PO DAILY 08/01/25 08/17/25 History Allergy/AdvReac Type Severity Reaction Status Date / Time adhesive tape Allergy Rash Verified 08/18/25 06:39 pravastatin (From Pravachol) Allergy MUSCLE PAIN Verified 08/18/25 06:39 Ymolgqs-AKA-WtR Reductase AdvReac Severe myalgias Verified 08/18/25 06:39 Inhibitor ezetimibe (From Zetia) AdvReac Unknown myalgias Verified 08/18/25 06:39 cyclobenzaprine (From AdvReac EXTREME Verified 08/18/25 06:39 Flexeril) WEAKNESS NSAIDS (Non-Steroidal AdvReac GI BLEED Verified 08/18/25 06:39 Anti-Inflamma Family History Other Breast cancer Heart disease Thyroid disorder Surgical History H/O angioplasty History of biopsy of temporal artery Hx of bilateral inguinal hernia repair Hx of right cataract extraction Hx of left cataract extraction History of esophagogastroduodenoscopy (EGD) Hx of colonoscopy Hx of right knee surgery Hx of shoulder surgery Hx of fusion of cervical spine History of radiofrequency ablation procedure for cardiac arrhythmia (09/28/01) History of left heart catheterization (10/02/09) History of carpal tunnel release History of bilateral hip replacements History of bilateral knee replacement History of herniorrhaphy H/O laminectomy (03/2019) wound debridement History of coronary artery stent placement (12/14/07) 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
[2025-08-18] MEDS: LR 1,000 ML - BOLUS PREOP 999 ML IV (06:51)
[2025-08-18] MEDS: Magnesium 1 GM over 15 mins IV (06:52)
[2025-08-18] MEDS: Midazolam 2 MG/2 ML Syringe IV (07:18)
[2025-08-18] MEDS: Vancomycin IV 1,000 MG/20 ML Vial 1250 MG IV (07:37)
[2025-08-18] MEDS: Lactated Ringers 1,000 ML 1000 ML IV (07:37)
[2025-08-18] MEDS: Cefazolin 1 GM/5 ML Vial 2 GM IV (07:37)
[2025-08-18] MEDS: Lidocaine 1% (5 ml sdv) 5 ML Vial 8 ML IV (07:42)
[2025-08-18] MEDS: TRANEXAMIC ACID 1,000 MG/10 ML ML 2000 MG IV (08:33)
[2025-08-18] MEDS: LR 1,000 ML - BOLUS POSTOP 999 ML IV (09:15)
--- NOTE | 2025-08-18 09:52 | OP.PCM_ITS ---
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 Their intimate knowledge of my steps in the procedure aided in safe and expedient completion of the procedure. The PE played a vital rolls in positioning particularly in obtaining the appropriate beach chair positi) Additional senior assistant manager?: No Type of Anesthesia: General RN Documented Start/Stop Times: Operation Date: 08/18/25 07:30 Case Time Into Pre-Op 08/18/25 06:31 Anesthesia Start 08/18/25 07:37 Into Room 08/18/25 07:37 Procedure Start 08/18/25 08:04 Procedure End 08/18/25 09:18 Anesthesia End 08/18/25 09:28 Out of Room 08/18/25 09:28 Into Recovery 08/18/25 09:30 Procedure Start Time: 08:04 Procedure Stop Time: 09:18 Select all DRAINS/GRAFTS/IMPLANTS that apply: Prosthetic device Prosthetic device details: See body of operative report Special Medications: Ancef, vancomycin Estimated Blood Loss: 75 mL Fluids Replaced: 700 mL crystalloid Specimen collected: Yes Description of specimen(s) removed: Bony cuts Description of surgery: Components used 1. Tournier perform glenoid 25 mm, +3 mm baseplate 2. Tournier perform 0 mm, 36 mm Glenosphere 3. Tournier perform 0 mm, 36 mm humeral liner, retentive 4. Tournier perform humeral stem primary press-fit 3 size Brief history/Operative indications: 75 yo F with history of R shoulder pain and cuff tear arthropathy. Patient failed conservative measures as mentioned in the H&P. After discussion of risk and benefits of reverse total shoulder replacement including but not limited to blood loss, DVTs, PEs, nerve vessel damage, infection, general risk of anesthesia including loss of life, instability and stiffness patient demonstrating understanding wish to proceed was able to sign informed consent. Medical clearance was obtained. Procedure: On the date of the procedure, patient's R upper extremity was marked in the preoperative area. Patient was taken back to the operating room where they were placed on the table in the supine position. Anesthesia assumed control of the C-spine and airway, then administered anesthetic. All bony prominences were identified well-padded, the head was secured and the patient was placed in the beachchair position at about 35? inclination. Anesthesia remained in control of the C-spine airway throughout the remainder of the procedure. Patient was then appropriately fastened to the table and the R upper extremity was prepped in a sterile fashion. The surgeons then scrubbed. Upon reentering the room, the R upper extremity was draped in a sterile fashion and the incision was marked out. Timeout was called, everyone agreed upon the side, the site, the procedure to be performed, patient identity and antibiotics given. Incision was taken down through skin and subcutaneous tissue, fat down to fascia. The stripe of the deltopectoral interval and cephalic vein were identified and blunt dissection was used to retract the deltoid. The cephalic vein was retracted laterally. Clavipectoral fascia was then incised and a cobra retractor was placed in the wound. The proximal one third of the pectoralis major insertion was released. Pectoralis tendon insertion was used to tenodesed the biceps tendon which was identified in the bicipital groove. Tenodesis was done with #1 Vicryl. Proximally we followed the biceps tendon after transecting it into the rotator interval. The rotator interval was split and the arm was externally rotated. The split was 1 cm medial to the bicipital groove. Subscapularis tendon was released. We released down the anterior portion of the humeral head and a lemon elevator was used to release the inferior portion of the humeral head. The arm was externally rotated and the shoulder was dislocated. The humeral head was then cut at its natural retroversion. Once his humeral head cut was made humerus was retracted out of the way and the glenoid was exposed. After exposing the glenoid, the labrum and the remaining proximal biceps were debrided. At this time we are able to view the entire outer edge of the glenoid. A central pin was placed we sequentially reamed over this central pin to 25mm. Once this was completed the central screw was measured and found to be. The glenoid baseplate was screwed into place. Wound was closely irrigated out with normal saline we then drilled sequentially for 2 screws. Screws were placed superiorly and inferiorly and tightened down the screws. Once the screws were appropriately tightened into place the glenoid baseplate was compressed against the exposed subchondral bone. A 36mm glenosphere was impacted into place engaging the Pina taper and tightened the central screw. Attention was then turned towards the humerus. The humerus was again externally rotated exposing the proximal portion of the humerus. Central canal finder was then used to open up the canal. We reamed to a size 3 reamer. We then broached to a size 3 stem. We trialed the 0mm liner. We obtained an adequate reduction at this time with a nice stable shoulder. Good internal rotation to the gluteus, forward elevation to 140?, external rotation to 20?. Final components were then assembled on the back table, trials were removed and the wound was copiously irrigated with normal saline after dislocating the shoulder. Once the final components were assembled they were impacted into place. Shoulder was then reduced and found to be stable with good range of motion. Subscapularis tendon repaired using #2 FiberWire. The wound was with chlorhexidine solution then copiously irrigated out with a 1 L normal saline lavage. The deltopectoral fascia was then closed using #1 Vicryl skin was closed using 2-0 Vicryl i nterrupted sutures and final skin closure was done with 3-0 stratafix. Steri- Strips are placed for final skin closure. Sterile dressing was placed patient was then placed in a sling and awakened by anesthesia. Patient was then transferred to the PACU for recovery. Postoperative plan: Patient will be admitted to the hospital overnight. They will get physical therapy starting in 2 weeks with normal postoperative regimen. Patient will be placed on Xarelto for DVT prophylaxis. The first postoperative appointment will be in 2 weeks for wound check and initiation of phase 1 physical therapy. During the course of the procedure the physician senior assistant manager played a vital role. His intimate knowledge of my steps in the procedure aided in safe and expedient completion of the procedure. The PA played a vital rolls in positioning particularly in obtaining the appropriate beach chair position and securing the patient's body and head to the table. The PA was also vital in the retraction of soft tissues during the exposure and especially the glenoid work as this is a vital part of the procedure to prevent neurovascular damage. the PA was also vital and protecting soft tissues during times of bony cuts and reaming. He also played a vital role in closure with my direct supervision. The PA was also important during reduction and dislocation of the joint and trials intraoperatively. Surgical Findings: Stable shoulder. Stage IV osteoarthritis Complications Complications: No Admit VTE Documentation VTE Present on Admission: No VTE Mechan Device Prophylaxis: SCD's and Thigh High BISHNU Hose VTE Pharm Prophylaxis ordered?: Yes
--- NOTE | 2025-08-18 10:32 | PCM.POST.ANE ---
Anesthesia: Postop Eval I Current Vital Signs Temperature: 98.1 F Pulse Rate: 78 Blood Pressure: 149/62 Respiratory Rate: 16 Pulse Ox: 97 Assessment Airway patent: Yes Spontaneous unlabored respirations: Yes nausea: No Vomiting: No Anesthesia Complication: No Fluid Hydration Crystalloid volume administer (ml): 1,000 Total IV fluid infused: 1,000 Progress Note Anesthesia document: Postop Eval 1 completed: Yes
--- NOTE | 2025-08-18 10:39 | POSTOPAN2_ITS ---
Anesthesia Postop Eval I Sum Postop Eval Completion status Anesthesia document: Postop Eval 1 completed: Yes Anesthesia Postop Eval I Summary Anesthesia Postop Eval I Summary: Anesthesia Postop Eval I: Assessment Summary Airway patent Yes 08/18/25 10:33 STOKER ERECTOR AND SERVICER.TNES Spontaneous unlabored Yes 08/18/25 10:33 STOKER ERECTOR AND SERVICER.TNES respirations Mental status nausea No 08/18/25 10:33 STOKER ERECTOR AND SERVICER.TNES Vomiting No 08/18/25 10:33 STOKER ERECTOR AND SERVICER.TNES Anesthesia Postop Eval I: Fluid Summary Crystalloid volume administer 1,000 08/18/25 10:33 STOKER ERECTOR AND SERVICER.TNES (ml) Colloids volume administered ( ml) Blood Product volume administered (ml) Total IV fluid infused 1,000 08/18/25 10:33 STOKER ERECTOR AND SERVICER.TNES Anesthesia Postop Eval I: Summary Notes Anesthesia Complication No 08/18/25 10:33 STOKER ERECTOR AND SERVICER.TNES Anesthesia Complication Comment: Post-operative progress note Anesthesia: Postop Eval II Evaluation Mental status: Awake Pain Level: 0 nausea: No Vomiting: No
--- NOTE | 2025-08-18 10:39 | PCM.POSTANE2 ---
Anesthesia Postop Eval I Sum Postop Eval Completion status Anesthesia document: Postop Eval 1 completed: Yes Anesthesia Postop Eval I Summary Anesthesia Postop Eval I Summary: Anesthesia Postop Eval I: Assessment Summary Airway patent Yes 08/18/25 10:33 MEDICAL ASSISTANT FLOAT.TNES Spontaneous unlabored Yes 08/18/25 10:33 MEDICAL ASSISTANT FLOAT.TNES respirations Mental status nausea No 08/18/25 10:33 MEDICAL ASSISTANT FLOAT.TNES Vomiting No 08/18/25 10:33 MEDICAL ASSISTANT FLOAT.TNES Anesthesia Postop Eval I: Fluid Summary Crystalloid volume administer 1,000 08/18/25 10:33 MEDICAL ASSISTANT FLOAT.TNES (ml) Colloids volume administered ( ml) Blood Product volume administered (ml) Total IV fluid infused 1,000 08/18/25 10:33 MEDICAL ASSISTANT FLOAT.TNES Anesthesia Postop Eval I: Summary Notes Anesthesia Complication No 08/18/25 10:33 MEDICAL ASSISTANT FLOAT.TNES Anesthesia Complication Comment: Post-operative progress note Anesthesia: Postop Eval II Evaluation Mental status: Awake Pain Level: 0 nausea: No Vomiting: No
[2025-08-18] MEDS: 0.9% Saline Lock 10 ML Syringe IV (12:03)
[2025-08-18] MEDS: LR 1,000 ML - 125 ML/HR (POST BOLUS) POST OP IV (12:03)
--- NOTE | 2025-08-18 12:32 | PN.HOSP_ITS ---
Subjective Subjective Consult requested by Dr. Chambers for post-op med mgmt. Patient feeling well post-op. Objective Data Objective Data Vital Signs: Vital Signs Temp Pulse Resp BP Pulse Ox O2 Del Method O2 Flow Rate 36.4 C L 72 16 127/60 H 96 Nasal Cannula 2 08/18/25 10:40 08/18/25 10:40 08/18/25 10:40 08/18/25 10:40 08/18/25 10:40 08/18/25 11:29 08/18/25 11:29 Oxygen Flow Rate (L/min) 2 Oxygen Delivery Method Nasal Cannula Weight: 75.115 kg Body Mass Index (BMI) 27.5 Intake & Output: Intake and Output for Last 24 Hours 08/16/25 08/17/25 08/18/25 23:59 23:59 23:59 Intake Total 3102 / 3102 Output Total 75 / 75 Balance 3027 / 3027 Lab / Micro Data 07/24/25 14:18 07/24/25 14:18 Labs: Laboratory Results - last 24 hr 08/18/25 06:43: POC Glucose 63 L 08/18/25 08:25: POC Glucose 90 Micro: Microbiology 07/24/25 14:18 Swab (Method) Nasal Screen MRSA/MSSA - Final Radiography Diagnostic Testing: Radiology Impression Shoulder X-Ray 08/18/25 06:15 IMPRESSION: Hardware in position. Reading [facility] Physical Exam Const alert and no apparent distress HEENT head/scalp atraumatic and moist oral mucous membranes Resp normal respiratory effort, no retractions, no use of accessory muscles and clear to auscultation bilaterally Cardio regular rate, regular rhythm and S1 normal heart sound GI normal to inspection, nondistended, normoactive bowel sounds, soft to palpation and non-tender Extremity normal to inspection and full ROM Neuro Sensorium / Orientation: awake and alert Assessment & Plan Assessment/Plan (1) Adrenal insufficiency: PLAN: Normally takes 2mg prednisone daily (in winter, 1 mg in summer). Has had issues with hypotension after previous surgeries. Patient received 10mg of IV dexamethasone with surgery. Will place on prednisone taper (Rx sent) to return to baseline of 2mg/d starting 08/19 PLAN: Plan hypothyroidism: continue levothyroxine s/p right reverse total shoulder replacement: mgmt per orthopaedics. Thank you for the consult. Will follow DW family at bedside. Charges/Coding Visit Charges Office Visits / Consults: 62773 OV L3 Est 20min
[2025-08-18] MEDS: Cefazolin 1 GM/50 ML BAG IV ×2 (15:51→23:41)
[2025-08-18] MEDS: Senna/Docusate Sodium 1 Tablet 2 TABLET PO (22:17)
[2025-08-18] MEDS: 0.9% Normal Saline (250mL Bag) 250 ML 15 ML IV (23:37)
[2025-08-19 00:53] VITALS: BP 148/64; PULSE 75; RESP 18; TEMP 36.8; O2SAT 99
[2025-08-19 05:41] VITALS: BP 148/65; PULSE 71; RESP 18; TEMP 37; O2SAT 99
[2025-08-19 06:13] LABS: Hematocrit 33.3 % (37-47); Hemoglobin 10.5 g/dL (12.0-15.0); Mean Corp Hgb Conc 31.5 g/dL (32-36); Mean Corpuscular Volume 105.0 fL (81-99); Mean Platelet Vol. 11.5 fl (6.2-12.0); Platelet Count 281 K/mm3 (150-450); RBC Distribution Width CV 14.7 % (11.6-14.6); RBC Distribution Width SD 56.8 fl (35.1-43.9); Red Blood Count 3.17 M/mm3 (4.2-5.4); White Blood Count 13.5 K/mm3 (4.4-11.0)
[2025-08-19 06:46] LABS: Anion Gap 13 (5-15); BUN 18 mg/dL (4-19); BUN/Creat Ratio 23.9 RATIO (10-20); Calcium,Total 9.3 mg/dL (7.6-11.0); Carbon Dioxide 20.8 mmol/L (21.0-32.0); Chloride 106 mmol/L (98-108); Estimated Creatinine Clearance 60.68 ml/min (50-250); Glucose 92 mg/dL (70-99); Potassium 4.4 mmol/L (3.3-5.1)
--- NOTE | 2025-08-19 08:16 | PN.ORTHO_ITS ---
Subjective Subjective Patient is sitting comfortably in bed upon examination. Patient states that she is doing really well and she is very happy at this time. Patient did well with occupational therapy yesterday and has been up and to the bathroom on her own. Patient states that she is feeling comfortable with going home at this point. Patient states that she has a son that lives next-door and has people who will stop over daily. Patient states that her pain is adequately controlled at this time. Patient denies any new nausea vomiting dizziness. Patient denies any new numbness or tingling. Patient denies any shortness of breath, chest pain, calf pain. Patient denies any adverse events overnight. Objective Data Objective Data Vital Signs: Vital Signs Temp Pulse Resp BP Pulse Ox O2 Del Method O2 Flow Rate 98.6 F 71 18 148/65 H 99 Room Air 2 08/19/25 05:41 08/19/25 05:41 08/19/25 05:41 08/19/25 05:41 08/19/25 05:41 08/19/25 05:41 08/18/25 11:29 Oxygen Flow Rate (L/min) 2 Oxygen Delivery Method Room Air Weight: 75.115 kg Body Mass Index (BMI) 27.5 Intake & Output: Intake and Output for Last 24 Hours 08/17/25 08/18/25 08/19/25 23:59 23:59 23:59 Intake Total 4152 / 4452 650 / 650 Output Total 75 / 75 Balance 4077 / 4377 650 / 650 Lab / Micro Data 08/19/25 05:36 08/19/25 05:36 Labs: Laboratory Results - last 24 hr 08/18/25 06:43: POC Glucose 63 L 08/18/25 08:25: POC Glucose 90 08/19/25 05:36: WBC 13.5 H, RBC 3.17 L, Hgb 10.5 L, Hct 33.3 L, MCV 105.0 H, MCH 33.1 H, MCHC 31.5 L, RDW Std Deviation 56.8 H, RDW Coeff of Robbin 14.7 H, Plt Count 281, MPV 11.5, Sodium 140, Potassium 4.4, Chloride 106, Carbon Dioxide 20.8 L, Anion Gap 13, BUN 18, Creatinine 0.75, Estim Creat Clear Calc 60.68, Est GFR (MDRD) Non-Af 82, BUN/Creatinine Ratio 23.9 H, Glucose 92, Calcium 9.3 Micro: Microbiology 07/24/25 14:18 Swab (Method) Nasal Screen MRSA/MSSA - Final Radiography Diagnostic Testing: Radiology Impression Shoulder X-Ray 08/18/25 06:15 IMPRESSION: Hardware in position. [facility] Exam Narrative Vital signs are stable and afebrile Dressings clean, dry, intact UltraSling has been appropriately fitted. Sensation intact to axillary, radial, median, ulnar nerve distribution. Motor intact patient able to make okay sign, cross fingers, thumbs up, peace sign. BISHNU hose in place bilaterally. SCDs in place bilaterally. Const alert, oriented x3 and no apparent distress Assessment & Plan Assessment/Plan (1) Status post reverse total arthroplasty of right shoulder: PLAN: Status post right reverse total shoulder arthroplasty day 1. 1. DVT prophylaxis: Patient will be on Xarelto for 2 weeks postoperatively. Patient states that she does not recall having a blood clot but her daughter is a nurse and stated that she has had a previous blood clot. We will pack patient on Xarelto prophylactically. Patient was educated while she is on Xarelto to avoid taking any anti-inflammatory medications. Patient was educated that she will be wearing BISHNU hose for 2 weeks postoperatively. 2. Pain medications: Patient will be taking Tylenol 1000 mg every 8 hours, oxycodone as needed for postoperative pain control. 3. Physical therapy: Patient is to continue with UltraSling at all times. Okay to take sling off for elbow range of motion and pendulum exercises 2-3 times daily. No range of motion of the operative shoulder. Will begin outpatient physical therapy at the 2-week follow-up appointment. 4. Constipation: Patient was instructed to take senna until her first bowel movement and then can decrease to as needed. Patient was educated they do not have a bowel movement within 3 days to contact our office. 5. H&H: 10.5/33.3. Patient is currently following anemia protocol at this time. Patient was encouraged to continue with anemia protocol and get labs and follow-up with primary care provider in 3 weeks for both anemia and to follow-up prednisone use. 6. Reactive leukocytosis: Blood cell count is currently 13.5. Vital signs are stable patient is afebrile. Patient was given Decadron intraoperatively. 7. Prednisone use: Patient was placed on prednisone taper by hospitalist to finish tapering down to regular maintenance dose patient was educated this to be sent to the pharmacy for. 8. Incentive spirometry: Patient was encouraged to use incentive spirometer every hour therapy for first week to exercise along decrease risk. Urinary infection. 9. Dressings: Patient was educated she will have waterproof dressing for 5 days. Patient was educated she can take it off on postop day 5 which is Monday. Patient was educated she can leave open to air after this. 10. Patient is to follow-up for postoperative medication instructions. 11. Medicine is involved at this time for safe and proper discharge. 12. Patient will need a follow-up appointment with primary care provider in roughly 3 weeks our office in 2 weeks. 13. Patient is okay for discharge today as long as pain maintains adequately controlled, patient works with and does well with physical therapy, and is okay per medicine doctor and case management instructions at this point. Patient was educated on her physical therapy protocol following reverse total shoulder. Patient was educated to maintain her sling at all times. Patient stated she did not need any Tylenol, senna, Zofran. Patient stated that she had these medications at home. Patient states at this time she does feel comfortable with going home and has people who will be stopping over to see her daily. Patient's other medications will be sent to patient's pharmacy of choice. Patient was educated on the follow-up appointment with her primary care provider in 3 weeks. Follow-up appointment with our office. Patient was encouraged to call with any questions, concerns or new problems.
--- NOTE | 2025-08-19 08:29 | DCINST_ITS ---
Discharge Instructions DC O2, CPAP, BIPAP needs Home O2 Discharge instructions: No Dressing / Incision Discharge Activity: May Not Drive (While wearing UltraSling.) Weight Bearing Status: Weight bearing as tolerated (Nonweightbearing on operative shoulder.) Keep extremity elevated above heart level: Right Arm (Ice and elevate right arm as needed.) Dressing / Incision Call your doctor if your incision/area has: Continuous Slow Oozing, Sudden Increased Bleeding, Increased Pain/ Swelling, Increased Redness, Foul Smelling Discharge and Swelling at the incision site Call your doctor if you observe: Fever of 101 or Higher, Coldness, Increased Pain, Numbness or Tingling, Change in Color, Inability to urinate, Inability to have a bowel movement, Using more than 1 pad per hour, Shortness of breath, Dizziness, Fainting spells, Swelling in the ankles, Chest pain, Increased palpitations (irregular heartbeat), Calf discomfort and Uncontrolled pain Remove Dressing in: 5 days (Remove dressing on day 5 postop. As long as incision is clean, dry, intact may leave open to air.) Cleanse incision/area with: Soap & Water (Gentle soap and water in the shower.) Additional Dressing/Incision Instructions:: No soaking or submerging for 6 weeks postoperatively. No lotions, salves, oils for 6 weeks postoperatively. Do not remove Steri-Strips under bandage allow them to fall off on their own. May shower over top of them. Continue anemia protocol taking ferrous sulfate and folic acid daily. Do not take any anti-inflammatory medications while on Xarelto. Continue prednisone taper until it is finished and then resume regular dose. Follow-up with primary care provider with lab in 3 weeks to continue to manage chronic anemia. [facility] report was reviewed today. Follow Up Care Test Results: Test results from this visit will be discussed in further detail at your follow- up appointment, if applicable. Discharge Plan Admission Admit Date/Time: 08/18/25 06:15 Attending Provider: Neo Chambers Primary Care Provider: Ebenezer Vann Consulting Providers: Phi Smith Discharge Orders/Prescriptions Prescriptions: New prednisone 10 mg tablet 10 mg PO DAILY Qty: 21 0RF Rx Instructions: 4 tabs daily for 2 days, then 3 tabs daily for 2 days, then 2 tabs daily for 2 days, then 1 tab daily for 2 days, then half tab for 2 days. acetaminophen 500 mg Tablet 1,000 mg PO Q8 Qty: 0 0RF Rx Instructions: Take 1000 mg every 8 hours. oxycodone 5 mg Tablet 5 - 10 mg PO Q4H PRN PRN (Reason: As needed for postoperative pain) 7 Days Qty: 42 0RF prednisone 20 mg Tablet 40 mg PO BREAKFAST Qty: 0 0RF sennosides-docusate sodium [Stimulant Laxative Plus] 8.6-50 mg Tablet 2 tab PO BID Qty: 0 0RF Xarelto 10 mg Tablet 10 mg PO DAILY 13 Days Qty: 13 0RF Rx Instructions: Do not take any anti-inflammatory medications while taking Xarelto. Continued metoprolol succinate 25 mg tablet extended release 24 hr 25 mg PO DAILY ascorbate calcium (vitamin C) 500 mg tablet 500 mg PO QHS levothyroxine 137 mcg tablet 137 mcg PO DAILY Qty: 90 3RF magnesium 200 mg tablet 1,000 mg PO QHS omeprazole 40 MG capsule 40 mg PO DAILY Patient Comments: HAD SIMILIAR MEDICATION 06/10/16 aspirin 81 MG tablet,delayed release (DR/EC) 81 mg PO QHS venlafaxine 37.5 MG tablet 37.5 mg PO QHS fluticasone propionate 1 SPRAY spray,suspension 2 spray NASAL QHS cetirizine 10 mg capsule 10 mg PO QHS calcium carbonate-vitamin D3 1 TAB tablet 2 tab PO DAILY@1500 temazepam 15 mg Capsule 15 mg PO QHS PRN (Reason: Sleep) Probiotic and Acidophilus 300-250 million cell-mg Capsule 1 cap PO DAILY d-mannose 500 mg Capsule 2,100 mg PO DAILY Clear Nails 1 tab PO/SL DAILY gabapentin 300 mg capsule 300 mg PO BID ferrous sulfate 325 mg (65 mg iron) tablet 325 mg PO DAILY folic acid 800 mcg tablet 800 mcg PO DAILY IQ BLAST 2 cap PO QPM HORSERADISH TREE 1,600 mg PO DAILY clopidogrel 75 mg tablet 75 mg PO 1500 Praluent Pen 150 mg/mL pen injector 150 mg subcut Q2W Qty: 6 3RF Held tramadol 50 mg tablet 50 mg PO .BID-TID Hold Instructions: Hold while taking oxycodone prednisone 1 mg tablet 2 mg PO DAILY Hold Instructions: Resume on 08/29/25. Referrals / Follow Up: Ebenezer Vann DO [Primary Care Provider, Family Practice] Disposition Disposition (needs filled in before D/C Order can be placed): Home, Self Care
--- NOTE | 2025-08-19 09:01 | CASEMGMT ---
MADSEN Met with patient to complete MADSEN form. MADSEN form and its content were verbally explained and patient's questions were answered to the best of my ability.? Patient voiced understanding and signed MADSEN form.? Patient provided a copy of signed MADSEN form and original placed in patient's chart.? Patient had no further questions. Leticia Olivas, Discharge Planning Asst
[2025-08-19 09:19] VITALS: BP 118/62; PULSE 59; RESP 14; TEMP 36.8; O2SAT 100
[2025-08-19] MEDS: Senna/Docusate Sodium 1 Tablet 2 TABLET PO (09:25)
[2025-08-19 09:33] VITALS: O2SAT 99
--- NOTE | 2025-08-19 09:44 | PHA.DC_ITS ---
[facility] has performed discharge medication reconciliation and counseling for this patient. The patient's discharge medication list was reviewed for discrepancies and discrepancies were resolved. The patient was counseled on the following discharge medications and changes in medications for homegoing were reviewed. The Reason for Use, instructions for use, and potential side effects were reviewed for all new medications. The patient's questions regarding all of their medications were answered. 1. Acetaminophen 1000 mg PO Q8 2. Oxycodone 5-10 mg PO Q4H PRN pain 3. Senna/docusate 2 tablets PO BID 4. Prednisone taper 5. Xarelto 10 mg PO daily The patient was able to verbally demonstrate an understanding of their discharge medications. Medications at Discharge Home Medications aspirin 81 mg tablet,delayed release 81 mg PO QHS heart health 05/31/16 fluticasone propionate 50 mcg/actuation nasal spray,suspension 2 spray NASAL QHS nasal lubricant 05/31/16 omeprazole 40 mg capsule,delayed release 40 mg PO DAILY GERD 05/31/16 venlafaxine 37.5 mg tablet 37.5 mg PO QHS depression 05/31/16 calcium 600 mg (as carbonate)-vitamin D3 20 mcg (800 unit) tablet 2 tab PO DAILY@1500 supplement 05/11/18 metoprolol succinate 25 mg tablet,extended release 24 hr 25 mg PO DAILY 04/16/21 tramadol 50 mg tablet 50 mg PO .BID-TID 04/16/21 Held on 08/19/25. Instructions: Hold while taking oxycodone cetirizine 10 mg capsule 10 mg PO QHS ALLERGIES 04/27/22 ascorbate calcium (vitamin C) 500 mg tablet 500 mg PO QHS 05/10/22 levothyroxine 137 mcg tablet 137 mcg PO DAILY #90 tabs 05/10/22 Clear Nails 1 tab PO/SL DAILY 01/25/23 Lactobacillus comb [id number] 300 million cell-250 mg capsule (Probiotic and Acidophilus) 1 cap PO DAILY 01/25/23 d-mannose 500 mg capsule 2,100 mg PO DAILY 01/25/23 temazepam 15 mg capsule 15 mg PO QHS PRN Sleep 01/25/23 alirocumab 150 mg/mL subcutaneous pen injector (Praluent Pen) 150 mg subcut Q2W #6 mL 12/16/24 magnesium 200 mg tablet 1,000 mg PO QHS 04/11/25 HORSERADISH TREE 1,600 mg PO DAILY 08/01/25 IQ BLAST 2 cap PO QPM 08/01/25 clopidogrel 75 mg tablet 75 mg PO 1500 [facility] 08/01/25 ferrous sulfate 325 mg (65 mg iron) tablet 325 mg PO DAILY 08/01/25 folic acid 800 mcg tablet 800 mcg PO DAILY 08/01/25 gabapentin 300 mg capsule 300 mg PO BID 08/01/25 prednisone 1 mg tablet 2 mg PO DAILY 08/01/25 Held on 08/18/25. Instructions: Resume on 08/29/25. prednisone 10 mg tablet 10 mg PO DAILY #21 tabs 08/18/25 acetaminophen 500 mg tablet 1,000 mg (2 x 500 mg) PO Q8 #0 tabs 08/19/25 oxycodone 5 mg tablet 5 - 10 mg (1 - 2 x 5 mg) PO Q4H PRN PRN As needed for postoperative pain 7 days #42 tabs 08/19/25 prednisone 20 mg tablet 40 mg (2 x 20 mg) PO BREAKFAST #0 tabs 08/19/25 rivaroxaban 10 mg tablet (Xarelto) 10 mg PO DAILY 13 days #13 tabs 08/19/25 sennosides 8.6 mg-docusate sodium 50 mg tablet (Stimulant Laxative Plus) 2 tab PO BID #0 tabs 08/19/25
--- NOTE | 2025-08-19 10:08 | CASEMGMT ---
Noted therapy evdhaval. TC to [facility] pharmacy, no cost for xarelto. Requested nursing secretary make appt for PCP in 2-3 wks for anemia per ortho PA. Pt to dc this date.
== END 2025-08-19 12:55 | disposition home or self-care (01) ==
LOC: SDC 16:25 → AC 16:26 → SDC 16:26 → MS3 16:26
PROVIDERS: Student in an Organized Health Care Education/Training Program; Admitting Provider Specialist; PCP Family Medicine; Referring Provider Specialist; Visit Provider Specialist
PROC: (CPT 23472; principal; 2025-08-18 07:00)
DX: M19.011 Primary osteoarthritis, right shoulder (principal); E03.9 Hypothyroidism, unspecified; I10 Essential (primary) hypertension; E55.9 Vitamin D deficiency, unspecified; Z79.890 Hormone replacement therapy; E78.5 Hyperlipidemia, unspecified; M75.101 Unspecified rotator cuff tear or rupture of right shoulder, not specified as traumatic; M35.3 Polymyalgia rheumatica; I25.10 Atherosclerotic heart disease of native coronary artery without angina pectoris; Z79.899 Other long term (current) drug therapy; D50.9 Iron deficiency anemia, unspecified; G89.29 Other chronic pain; Z79.51 Long term (current) use of inhaled steroids; Z79.02 Long term (current) use of antithrombotics/antiplatelets; F41.9 Anxiety disorder, unspecified
CPT/HCPCS: 23472; 01638; 36415; 73030; 80048; 82040; 82962; 83735; 84443; 85025; 85027; 87081; 93005; 94668; 96361; 96365; 97110; 97161; 97166; 97535; 99221; C1776; A4216; G0378; J2405; J3475

== ENCOUNTER → 2025-08-29 | Outpatient (CLI) | payer MEDICARE, OTHER, SELFPAY ==
[2025-08-29 10:04] LABS: Hematocrit 30.1 % (37-47); Hemoglobin 9.5 g/dL (12.0-15.0); Immature Granulocytes Count 0.070 X10^3/uL (0.0-0.0); Mean Corp Hgb Conc 31.6 g/dL (32-36); Mean Corpuscular Volume 103.4 fL (81-99); Mean Platelet Vol. 9.7 fl (6.2-12.0); NRBC Flagged by Analyzer 0 % (0-5); Platelet Count 451 K/mm3 (150-450); RBC Distribution Width CV 14.9 % (11.6-14.6); RBC Distribution Width SD 55.6 fl (35.1-43.9); Red Blood Count 2.91 M/mm3 (4.2-5.4); White Blood Count 12.1 K/mm3 (4.4-11.0)
[2025-08-29 11:10] LABS: AST(SGOT) 17 U/L (<=31); Alanine Aminotransfer ALT/SGPT 14 U/L (<=34); Albumin, Serum 3.9 g/dL (3.4-4.8); Alkaline Phosphatase 58 U/L (35-104); Bilirubin, Direct 0.16 mg/dL (0.00-0.30); Cholesterol 137 mg/dL (<=200); Globulin 2.7 g/dL (2.2-4.2); Low Density Lipoprotein Calc. 51 mg/dL; Triglycerides 64 mg/dL; Very Low Density Lipoprotein 13 mg/dL (5-40); cholesterol:hdl ratio screen 1.88
== END | disposition home or self-care (01) ==
LOC: LAB 09:20
PROVIDERS: PCP Family Medicine; Referring Provider Nurse Practitioner Gerontology; Visit Provider Nurse Practitioner Gerontology
DX: M54.2 Cervicalgia (principal); E78.00 Pure hypercholesterolemia, unspecified; D64.9 Anemia, unspecified
CPT/HCPCS: 36415; 72050; 80061; 80076; 85025